=== PATIENT | male | born 1970 ===

== ENCOUNTER 2021-06-02 14:45 | Outpatient (REF) | payer OTHER, SELFPAY | END 2021-06-02 14:46 | disposition home or self-care (01) | LOC: HO.LAB 14:45 | PROVIDERS: Visit Provider Internal Medicine | DX: Z20.822 Contact with and (suspected) exposure to COVID-19 (principal) | CPT/HCPCS: C9803; U0003; U0005 ==

== ENCOUNTER 2023-06-26 14:00 | Emergency (ER) | payer MEDICAID, SELFPAY ==
--- NOTE | 2023-06-26 14:15 | ECG_ITS ---
Test Reason : DIZZY Blood Pressure : / mmHG Vent. Rate : 090 BPM Atrial Rate : 090 BPM P-R Int : 176 ms QRS Dur : 096 ms QT Int : 354 ms P-R-T Axes : 044 -11 023 degrees QTc Int : 433 ms Normal sinus rhythm Nonspecific ST and T wave abnormality Abnormal ECG When compared with ECG of 26-JUL-2008 01:19, No significant change was found Referred By: Caity Freire Electronically Signed By:SHIVAM CORTÉS
[2023-06-26 14:46] VITALS: BP 132/83; PULSE 91; RESP 16; TEMP 36.5; O2SAT 92; BMI 34.8
--- NOTE | 2023-06-26 14:46 | ED.GENADULT ---
HPI - General Adult General Chief complaint: General Medical Stated complaint: dizzy, ? bp high Time Seen by Provider: 06/26/23 22:59 Related Data Previous Rx's Medication Instructions Recorded lisinopril 40 mg tablet 40 mg PO DAILY #30 tabs 06/26/23 metoprolol succinate 25 mg 25 mg PO DAILY #30 tabs 06/26/23 tablet,extended release 24 hr Allergies Allergy/AdvReac Type Severity Reaction Status Date / Time No Known Allergies Allergy Mild NONE Unverified 06/09/20 17:20 [facility] Social History Social History Alcohol intake: never Smoked in Last 30 Days: No Use of substances other than those prescribed or required for medical reasons: No Advance Directives: No Physical Exam ED Vital Signs: BMI result Body Mass Index 34.8 Course Course Course Narrative: RME: 53yo M w/PMHx HTN c/o ZALDIVAR, dizziness x this morning w/blurry vision. Took BP this am at home and was elevated (175/92). States he hasn't taken his BP meds x3 days due to insurance issues, released from incarceration about 1 mos ago. Admits living w/somoeone who tested + for COVID EKG, Labs, COVID testing ordered Full HPI, ROS and PE to be performed by primary ED provider. Medical Decision Making Lab Data 06/26/23 15:09 06/26/23 15:09 Labs: Lab Results 06/26/23 Range/Units 15:09 WBC 6.2 (4.8-10.8) X10*3/uL RBC 4.71 (4.60-5.80) X10*6/uL Hgb 14.0 (14.0-18.0) g/dl Hct 40.9 L (42.0-52.0) % MCV 86.8 (80.0-98.0) fL MCH 29.7 (27.0-33.0) pg MCHC 34.2 (31.0-36.0) g/dl RDW 13.0 (11.0-16.0) % Plt Count 268 (160-400) X10*3/uL MPV 10.5 (9.4-12.4) fL Immature Gran % (Auto) 0.2 (0.0-0.4) % Neut % (Auto) 62.4 (45-73) % Lymph % (Auto) 23.5 (20-40) % [place] % (Auto) 10.8 (2-11) % Eos % (Auto) 1.8 (0-4) % Baso % (Auto) 1.3 (0-2) % Lymph # (Auto) 1.5 (1.2-4.9) X10*3/uL [place] # (Auto) 0.7 (0.1-1.2) X10*3/uL Eos # (Auto) 0.1 (0.0-0.4) X10*3/uL Baso # (Auto) 0.1 (0.0-0.2) X10*3/uL Abs Immat Gran (auto) 0.01 (0.00-0.03) X10*3/uL Absolute Neuts (auto) 3.9 (2.0-8.3) x10*3/uL Absolute Nucleated RBC 0.000 (0.0-0.012) X10*3/uL Nucleated RBC % (auto) 0.0 (0.0-0.2) /100WBC PT 11.1 (11.1-13.3) SEC INR 0.9 (0.9-1.1) Sodium 138 (135-145) mmol/L Potassium 3.4 (3.3-5.1) mmol/L Chloride 101 (96-108) mmol/L Carbon Dioxide 25 (22-29) mmol/L Anion Gap 15 (12-20) BUN 16 (9-16) mg/dL Creatinine 1.32 (0.5-1.4) mg/dL Estim Creat Clear Calc 85.2 Estimated GFR 57 Random Glucose 148 H (60-115) mg/dL Calcium 9.6 (8.4-10.2) mg/dL Magnesium 1.8 (1.6-2.6) mg/dL Total Bilirubin 0.4 (0.0-1.0) mg/dL Direct Bilirubin 0.1 (0.0-0.5) mg/dL AST 16 (5-37) U/L ALT 14 (0-40) U/L Alkaline Phosphatase 66 (39-117) U/L Troponin I High Sens 26.9 (<3.5-35.0) ng/L Total Protein 7.6 (6.5-8.0) g/dL Albumin 3.9 (3.5-5.0) g/dL COVID-19 ([facility]) Negative (Negative) COVID-19 Clin Com See Note Discharge Plan Discharge Clinical Impression: Hypertension Patient Disposition: Home, Self-Care Instructions: Chronic Hypertension (DC) Prescriptions: New metoprolol succinate 25 mg tablet extended release 24 hr 25 mg PO DAILY Qty: 30 0RF lisinopril 40 mg tablet 40 mg PO DAILY Qty: 30 0RF Referrals: [facility] [Primary Care Provider] - 06/28/23 Interventions: ED Discharge Assessment Last Done: 06/26/23 23:39 Discharge Date/Time: 06/26/23 23:40
[2023-06-26 15:13] LABS: MANUAL DIFF FLAG NO
[2023-06-26 15:16] LABS: Basophils Absolute Auto 0.1 X10*3/uL (0.0-0.2); Basophils Percent Auto 1.3 % (0-2); Eosinophils Absolute Auto 0.1 X10*3/uL (0.0-0.4); Eosinophils Percent Auto 1.8 % (0-4); Hematocrit 40.9 % (42.0-52.0); Imm Gran Abs Auto 0.01 X10*3/uL (0.00-0.03); Imm Gran Pct Auto 0.2 % (0.0-0.4); Lymphocytes Absolute Auto 1.5 X10*3/uL (1.2-4.9); Lymphocytes Percent Auto 23.5 % (20-40); Mean Corpuscular HGB Conc 34.2 g/dl (31.0-36.0); Mean Corpuscular Hemoglobin 29.7 pg (27.0-33.0); Mean Corpuscular Volume 86.8 fL (80.0-98.0); Mean Platelet Volume 10.5 fL (9.4-12.4); Monocytes Absolute Auto 0.7 X10*3/uL (0.1-1.2); Monocytes Percent Auto 10.8 % (2-11); Neutrophils Absolute Auto 3.9 x10*3/uL (2.0-8.3); Neutrophils Percent Auto 62.4 % (45-73); Platelet Count 268 X10*3/uL (160-400); Red Blood Count 4.71 X10*6/uL (4.60-5.80); White Blood Count 6.2 X10*3/uL (4.8-10.8)
[2023-06-26 15:25] LABS: INTERNATIONAL NORM RATIO 0.9 (0.9-1.1); Prothrombin Time 11.1 SEC (11.1-13.3)
[2023-06-26 15:33] LABS: Alanine Aminotransferase 14 U/L (0-40); Albumin Level 3.9 g/dL (3.5-5.0); Alkaline Phosphatase 66 U/L (39-117); Anion Gap 15 (12-20); Aspartate Amino Transferase 16 U/L (5-37); Bilirubin Direct 0.1 mg/dL (0.0-0.5); Bilirubin Total 0.4 mg/dL (0.0-1.0); Blood Urea Nitrogen 16 mg/dL (9-16); Calcium 9.6 mg/dL (8.4-10.2); Carbon Dioxide 25 mmol/L (22-29); Chloride 101 mmol/L (96-108); Creatinine Clr Calc Pharmacy 85.2; Estimated Glomerular Filt Rate 57; Glucose Random 148 mg/dL (60-115); Magnesium 1.8 mg/dL (1.6-2.6); Potassium 3.4 mmol/L (3.3-5.1); Sodium 138 mmol/L (135-145); Total Protein 7.6 g/dL (6.5-8.0)
[2023-06-26 15:38] LABS: COVID-19 Test Negative (Negative); IDNOW Serial# BCCEAD1C
[2023-06-26 15:39] LABS: Troponin-I High Sensitivity 26.9 ng/L (<3.5-35.0)
[2023-06-26 22:32] VITALS: BP 142/91; PULSE 71; O2SAT 98
--- NOTE | 2023-06-26 23:14 | ED.GENADULT ---
HPI - General Adult General Chief complaint: General Medical Stated complaint: dizzy, ? bp high Time Seen by Provider: 06/26/23 22:59 History of Present Illness HPI narrative: Patient is a 53-year-old male was recently in [facility]. Got out of detention. Has not been taking his blood pressure medicine for 3 days. Has a history of glaucoma. Complaining of mild headache to the head on the right side. No neurological deficits. [place] a little lightheaded. Elected to take his blood pressure was elevated. Once his blood pressure medicine back. Patient is also out of his eye drop. He is from home. There is no chest pain is no diaphoresis. There was no loss of consciousness. There is no focal weakness. Related Data Previous Rx's Medication Instructions Recorded lisinopril 40 mg tablet 40 mg PO DAILY #30 tabs 06/26/23 metoprolol succinate 25 mg 25 mg PO DAILY #30 tabs 06/26/23 tablet,extended release 24 hr Allergies Allergy/AdvReac Type Severity Reaction Status Date / Time No Known Allergies Allergy Mild NONE Unverified 06/09/20 17:20 Review of Systems Review of Systems: Positive history of having high blood pressure Yes all other systems are reviewed and are negative [facility] Past Medical History Attestation statement: The following information was validated with the patient. Social History Social History Alcohol intake: never Physical Exam ED Vital Signs: Vital Signs - 24 hr 06/26/23 14:46 06/26/23 22:32 Temperature 97.7 F Pulse Rate 91 71 Respiratory Rate 16 Blood Pressure 132/83 142/91 H Pulse Oximetry 92 98 Oxygen Delivery Method Room Air Room Air BMI result Body Mass Index 34.8 Appearance: Alert. Oriented X3. No acute distress. Eyes: Pupils equal, round and reactive to light. ENT: Pharynx normal. Neck: Normal inspection. Neck supple. No lymph nodes noted. No crepitus CVS: Normal heart rate and rhythm. Pulses normal. Normal S1 and S2 Respiratory: No respiratory distress. Breath sounds normal. No Wheezing. No rales Abdomen: Soft and nontender. No rigidity. No distention. good BS x4 Skin: Skin warm and dry. Normal skin color. Normal skin turgor. Extremities: No lower extremity edema. Neurovascular intact to all extremities. No Lacerations. No Rash Neuro: Oriented X 3. No motor deficit. No sensory deficit. Moving all extermities. No slurred speech NIH Stroke Scale Internal: Initial- Upon Arrival Time: 23:20 Level of Consciousness: Alert Level of Consciousness Questions: Answers both questions correctly Level of Consciousness Commands: Performs both tasks correctly Best Gaze: Normal Visual: No visual loss Facial Palsy: Normal Motor Arm (Right): No drift Motor Arm (Left): No drift Motor Leg (Right): No drift Motor Leg (Left): No drift Limb Ataxia: Absent Sensory: Normal Best Language: No aphasia Dysarthia: Normal Extinction and Inattention: No abnormality Score: 0 Medical Decision Making Medical Decision Making MDM Narrative: Patient's intra-ocular pressure is 14 on the right 15 on the left. There is no evidence for glaucoma. Visual acuity grossly intact. Patient neurologically intact. NIH stroke scale was 0. Blood pressure is 142/91. Patient had exposure to COVID however his COVID test was negative. His hemoglobin is 14 there is no evidence for anemia. Patient's creatinine is 1.32 with a normal GFR. No evidence of kidney issues. My interpretation of patient's EKG showed a sinus rhythm heart rate is 90 NV QRS QTC within normal limits is no acute ST segment elevation. There is diffuse T-wave flattening noted. This EKG is unchanged from previous. Patient's blood pressure here in the emergency department is not extreme. It is in the 150/90 range. We will go ahead and attempt to identify patient's blood pressure medication and send him a new prescription as he is waiting for his primary care physician. Patient's headache has completely subsided. He is neurologically intact. In stable condition with discharge home. Differential Diagnosis Differential Diagnoses: The differential diagnosis associated with the presentation includes Glaucoma, tension headache, stroke, intracranial bleed, mass, hypertension noncompliance Lab Data [facility] Lab Attestation statement: I reviewed the patient's lab results. 06/26/23 15:09 06/26/23 15:09 Labs: Lab Results 06/26/23 Range/Units 15:09 WBC 6.2 (4.8-10.8) X10*3/uL RBC 4.71 (4.60-5.80) X10*6/uL Hgb 14.0 (14.0-18.0) g/dl Hct 40.9 L (42.0-52.0) % MCV 86.8 (80.0-98.0) fL MCH 29.7 (27.0-33.0) pg MCHC 34.2 (31.0-36.0) g/dl RDW 13.0 (11.0-16.0) % Plt Count 268 (160-400) X10*3/uL MPV 10.5 (9.4-12.4) fL Immature Gran % (Auto) 0.2 (0.0-0.4) % Neut % (Auto) 62.4 (45-73) % Lymph % (Auto) 23.5 (20-40) % [place] % (Auto) 10.8 (2-11) % Eos % (Auto) 1.8 (0-4) % Baso % (Auto) 1.3 (0-2) % Lymph # (Auto) 1.5 (1.2-4.9) X10*3/uL [place] # (Auto) 0.7 (0.1-1.2) X10*3/uL Eos # (Auto) 0.1 (0.0-0.4) X10*3/uL Baso # (Auto) 0.1 (0.0-0.2) X10*3/uL Abs Immat Gran (auto) 0.01 (0.00-0.03) X10*3/uL Absolute Neuts (auto) 3.9 (2.0-8.3) x10*3/uL Absolute Nucleated RBC 0.000 (0.0-0.012) X10*3/uL Nucleated RBC % (auto) 0.0 (0.0-0.2) /100WBC PT 11.1 (11.1-13.3) SEC INR 0.9 (0.9-1.1) Sodium 138 (135-145) mmol/L Potassium 3.4 (3.3-5.1) mmol/L Chloride 101 (96-108) mmol/L Carbon Dioxide 25 (22-29) mmol/L Anion Gap 15 (12-20) BUN 16 (9-16) mg/dL Creatinine 1.32 (0.5-1.4) mg/dL Estim Creat Clear Calc 85.2 Estimated GFR 57 Random Glucose 148 H (60-115) mg/dL Calcium 9.6 (8.4-10.2) mg/dL Magnesium 1.8 (1.6-2.6) mg/dL Total Bilirubin 0.4 (0.0-1.0) mg/dL Direct Bilirubin 0.1 (0.0-0.5) mg/dL AST 16 (5-37) U/L ALT 14 (0-40) U/L Alkaline Phosphatase 66 (39-117) U/L Troponin I High Sens 26.9 (<3.5-35.0) ng/L Total Protein 7.6 (6.5-8.0) g/dL Albumin 3.9 (3.5-5.0) g/dL COVID-19 ([facility]) Negative (Negative) COVID-19 Clin Com See Note Independent Interpretation I performed an independent interpretation of an: EKG (Sinus sinus heart rate is 90 NV QRS QTC within normal limits is diffuse T-wave flattening noted.) External Record Review No old records here at [facility] Chronic Conditions Patient?s care impacted by: Hypertension Hypertension, glaucoma Social Determinants Patient?s care significantly limited by Social Determinants of Health including: Unemployment and Other Social Determinant of Health Patient was in detention Discharge Plan Discharge Patient Disposition: Home, Self-Care Instructions: Chronic Hypertension (DC) Prescriptions: New metoprolol succinate 25 mg tablet extended release 24 hr 25 mg PO DAILY Qty: 30 0RF lisinopril 40 mg tablet 40 mg PO DAILY Qty: 30 0RF Referrals: [facility] [Primary Care Provider] - 06/28/23
[2023-06-26 23:38] VITALS: BP 137/90; PULSE 74; RESP 18; O2SAT 96
== END 2023-06-26 23:40 | disposition home or self-care (01) ==
PROVIDERS: Physician Assistant; Emergency Provider Emergency Medicine Emergency Medical Services
DX: R42 Dizziness and giddiness (principal); I10 Essential (primary) hypertension; R94.31 Abnormal electrocardiogram [ECG] [EKG]; Z20.822 Contact with and (suspected) exposure to COVID-19; Z20.828 Contact with and (suspected) exposure to other viral communicable diseases; Z79.899 Other long term (current) drug therapy
CPT/HCPCS: 36415; 80048; 80076; 83735; 84484; 85025; 85610; 87635; 93005; 99283; 99284

== ENCOUNTER 2023-09-18 22:33 | Emergency (ER) | payer MEDICAID, SELFPAY ==
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
[2023-09-18 23:30] VITALS: BP 114/71; PULSE 90; RESP 20; TEMP 37.7; O2SAT 97; BMI 29.8
[2023-09-19 00:31] VITALS: BP 117/63; PULSE 94; RESP 14; TEMP 37.7; O2SAT 93
[2023-09-19 00:58] LABS: Influenza A PCR POSITIVE (Negative); Influenza B PCR NEGATIVE (Negative); Resp Syncy Virus RNA Qual PCR NEGATIVE (Negative); SARS COV2 PCR INHOUSE NEGATIVE (Negative)
--- NOTE | 2023-09-19 02:24 | ED_ITS ---
HPI - URI/Sore Throat General Chief Complaint: Upper Respiratory Symptoms Stated Complaint: fever x2 days Time Seen by Provider: 09/19/23 01:56 History of Present Illness HPI Narrative: 53-year-old male presents with body aches, sore throat, cough, headache and subjective fevers with chills since the . Related Data Previous Rx's Medication Instructions Recorded lisinopril 40 mg tablet 40 mg PO DAILY #30 tabs 06/26/23 metoprolol succinate 25 mg 25 mg PO DAILY #30 tabs 06/26/23 tablet,extended release 24 hr Allergies Allergy/AdvReac Type Severity Reaction Status Date / Time No Known Allergies Allergy Mild NONE Unverified 06/09/20 17:20 Review of Systems Review of Systems: Pertinent positives and negatives as stated in HPI [facility] Past Medical History Source: nursing notes reviewed Social History Social History Alcohol intake: never Advance Directives: No Advance Directives Information Provided: No Physical Exam Vital Signs: Vital Signs: Last Vital Signs Temp 99.9 F 09/19/23 00:31 Pulse 94 09/19/23 00:31 Resp 14 09/19/23 00:31 BP 117/63 09/19/23 00:31 Pulse Ox 93 09/19/23 00:31 O2 Del Method Room Air 09/19/23 00:31 BMI result Body Mass Index 29.8 VITAL SIGNS: Reviewed. GENERAL: Well developed, well nourished, in no acute distress. HEAD: Normocephalic/atraumatic EYES: PERRLA, EOMI EARS: Ext canals without abnormality, TMs non-bulging and non-erythematous NOSE: Nares patent bilateral OROPHARYNX: no oral lesions noted, posterior pharynx clear and non-erythematous without noted tonsillar enlargement/erythema/exudates NECK: Supple, no adenopathy LUNGS: Normal breath sounds. No adventitious sounds or accessory muscle use. SpO2<93> CARDIOVASCULAR: Regular rate and rhythm without noted murmurs ABDOMEN: Soft, non-tender, non-distended with bowel sounds. MUSCULOSKELETAL: No tenderness, deformities, or effusions noted on gross inspection. EXTREMITIES: No cyanosis, clubbing or edema. SKIN: Inspection of the skin reveals no rashes NEUROLOGIC: Alert and oriented x 4. Strength and sensation to light touch were grossly intact x 4. Medical Decision Making Medical Decision Making [facility] Narrative: 53-year-old male with history and clinical presentation most consistent with viral illness, on review of viral testing patient is noted be influenza A positive and chest x-ray not significant for all infiltrate or venous congestion otherwise my interpretation is in agreement with radiologic impression. Patient is outside the window for treatment with Tamiflu and is otherwise discharged home with instructions on symptomatic treatment. Differential Diagnosis Differential Diagnoses: The differential diagnosis associated with the presentation includes Please see the discussion above Admission/Observation Consideration of admission/observation: Escalation of care including admission/observation considered Please see the discussion above Lab Data [facility] Lab Attestation statement: I reviewed the patient's lab results. Please see the discussion above Labs: Lab Results 09/19/23 Range/Units 00:14 Influenza Type A (PCR) POSITIVE A (Negative) Influenza Type B (PCR) NEGATIVE (Negative) RSV RNA Qual (PCR) NEGATIVE (Negative) SARS-CoV-2 RNA (RT-PCR) NEGATIVE (Negative) Radiology Impression Discussion of test interpretation with radiology: I have reviewed the radiologist's reading. Radiologist Impression: Please see the discussion above Chronic Conditions Patient?s care impacted by: Hypertension Discharge Plan Discharge Clinical Impression: Viral syndrome, Influenza A Patient Disposition: Home, Self-Care Instructions: Influenza (ED), Viral Syndrome (ED) Additional Instructions: 1. Use Tylenol/ibuprofeno seg?n sea necesario para maxine corporales, maxine de keaton, temperaturas superiores a 100,4, franklyn yessenia agua y descanse lo suficiente. 2. Mario un seguimiento con [place] m?dico de atenci?n primaria. Regrese a la ricardo de emergencias si los s?ntomas empeoran. 1. Use Tylenol/ibuprofen as needed for body aches, headaches, temperatures greater than 100.4, drink plenty of water, get plenty of rest. 2. Follow-up with your primary care doctor. Return to the ER for any worsening symptoms. Prescriptions: No Action metoprolol succinate 25 mg tablet extended release 24 hr 25 mg PO DAILY Qty: 30 0RF lisinopril 40 mg tablet 40 mg PO DAILY Qty: 30 0RF Interventions: ED Discharge Assessment Last Done: 09/19/23 02:42 Discharge Date/Time: 09/19/23 02:43 Print Language: [place]an
== END 2023-09-19 02:43 | disposition home or self-care (01) ==
PROVIDERS: Emergency Provider Student in an Organized Health Care Education/Training Program
DX: J10.1 Influenza due to other identified influenza virus with other respiratory manifestations (principal); B34.9 Viral infection, unspecified; R50.9 Fever, unspecified; M79.10 Myalgia, unspecified site; Z20.822 Contact with and (suspected) exposure to COVID-19; Z20.828 Contact with and (suspected) exposure to other viral communicable diseases
CPT/HCPCS: 0241U; 71046; 99283

== ENCOUNTER 2023-10-02 16:14 | Outpatient (REF) | payer MEDICAID, SELFPAY ==
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
== END 2023-10-02 16:15 | disposition home or self-care (01) ==
LOC: HO.HHCX 16:14
PROVIDERS: Visit Provider Internal Medicine Geriatric Medicine
DX: R04.2 Hemoptysis (principal)
CPT/HCPCS: 71046

== ENCOUNTER 2023-10-03 16:19 | Outpatient (REF) | payer MEDICAID, SELFPAY ==
[2023-10-03 16:30] LABS: MANUAL DIFF FLAG NO
[2023-10-03 16:50] LABS: Basophils Absolute Auto 0.1 X10*3/uL (0.0-0.2); Basophils Percent Auto 0.9 % (0-2); Eosinophils Absolute Auto 0.1 X10*3/uL (0.0-0.4); Eosinophils Percent Auto 1.2 % (0-4); Hematocrit 42.2 % (42.0-52.0); Hemoglobin 14.2 g/dl (14.0-18.0); Imm Gran Abs Auto 0.02 X10*3/uL (0.00-0.03); Imm Gran Pct Auto 0.3 % (0.0-0.4); Lymphocytes Absolute Auto 1.6 X10*3/uL (1.2-4.9); Lymphocytes Percent Auto 21.6 % (20-40); Mean Corpuscular HGB Conc 33.6 g/dl (31.0-36.0); Mean Corpuscular Hemoglobin 29.1 pg (27.0-33.0); Mean Corpuscular Volume 86.5 fL (80.0-98.0); Mean Platelet Volume 11.3 fL (9.4-12.4); Monocytes Absolute Auto 0.7 X10*3/uL (0.1-1.2); Monocytes Percent Auto 9.6 % (2-11); Neutrophils Percent Auto 66.4 % (45-73); Platelet Count 307 X10*3/uL (160-400); Red Blood Count 4.88 X10*6/uL (4.60-5.80); Red Cell Distribution Width 13.3 % (11.0-16.0); White Blood Count 7.6 X10*3/uL (4.8-10.8)
[2023-10-03 17:19] LABS: Anion Gap 9 (12-20); Blood Urea Nitrogen 17 mg/dL (9-16); Calcium 9.4 mg/dL (8.4-10.2); Carbon Dioxide 29 mmol/L (22-29); Chloride 105 mmol/L (96-108); Estimated Glomerular Filt Rate > 60; Glucose Random 160 mg/dL (60-115); Potassium 3.4 mmol/L (3.3-5.1); Sodium 140 mmol/L (135-145)
[2023-10-05 21:24] LABS: TS Negative Control Passed; TS Panel A 1; TS Panel B 0; TS Positive Control Passed; TSpotTB Negative (Negative)
== END 2023-10-03 16:20 | disposition home or self-care (01) ==
LOC: HO.LAB 16:19
PROVIDERS: Visit Provider Internal Medicine Geriatric Medicine
DX: Z11.1 Encounter for screening for respiratory tuberculosis (principal); R04.2 Hemoptysis
CPT/HCPCS: 36415; 80048; 85025; 86481

== ENCOUNTER 2024-04-21 10:06 | Outpatient (REF) | payer MEDICAID, SELFPAY ==
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
== END 2024-04-21 10:07 | disposition home or self-care (01) ==
LOC: HO.HHCX 10:06
PROVIDERS: Visit Provider Emergency Medicine
DX: M25.561 Pain in right knee (principal); G89.29 Other chronic pain
CPT/HCPCS: 73564

== ENCOUNTER 2024-05-26 12:57 | Outpatient (AMB) | payer MEDICAID, SELFPAY ==
--- NOTE | 2024-05-26 13:03 | A.OFFVIS_ITS ---
Vital Signs 05/26/24 13:05 Height 6 ft Weight 247 lb BMI 33.5 Intake Visit Reasons: REGISTRATION REP-RT knee pain Intake Note: Jai is a 53 year old Estonian speaking male who presents today as a new patient with complaints of right knee pain. Patient reports for about 4 or longer he has been intermittent pains in the right knee. His complaints are pulsating pain on the posterior aspect of the knee and also a mass on the back of his knee especially with prolonged standing and pressure like pain on the anterior aspect. Ibuprofen and brace gives mild relief. 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 The patient reports that this pain has progressively worsened over that time. Patient reports that his pain is worst in the lateral aspect of the right knee. Patient reports that he does also experience pain in both the anterior and posterior aspects of the right knee, and feels there is a palpable mass in the posterior aspect of the right knee. The patient reports that he is very apprehensive about any injections or surgery, and states he would like to start with as conservative of treatment as possible. No other acute complaints or concerns at this time. 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 Physical Exam Vital Signs: BMI result Body Mass Index 33.5 Extrem Other: On inspection, there is no visible deformity of the left knee Mild edema No erythema, ecchymosis noted No lacerations, abrasions, open areas No evidence of infection Patient reports mild tenderness to palpation of both medial and lateral joint lines Patient also reports mild tenderness to palpation of the posterior knee No palpable mass appreciated No tenderness to palpation of the quad tendon, patellar tendon, tibial tubercle Patient is able to extend the left knee to 0 degrees and flex to approximately 120 degrees without difficulty No ligamentous laxity noted Distal sensation intact Capillary refill brisk Negative Todd's Results Reviewed Results Reviewed: X-rays obtained in the office today and independently reviewed by me, Vadim Jeanie PA-C, demonstrate severe degenerative changes of the right knee, worst in the lateral compartment. No fracture or acute bony abnormality noted. Assessment & Plan Assessment & Plan (1) Osteoarthritis of right knee: Code(s): M17.11 - Unilateral primary osteoarthritis, right knee Category: Medical Plan 1. Osteoarthritis of right knee, severe Patient is educated about this condition and the typical recovery course Patient is educated on the treatment options available, namely conservative measures such as physical therapy, injections, or surgery The patient once again expresses his apprehension at injections or surgery, and states he would like to start with conservative measures for symptomatic management Patient was referred to physical therapy for range of motion, strengthening, stabilization of right knee Patient is also educated on conservative pain management measures, such as rest, ice, compression, elevation, and [id number] pain medication when needed, such as Tylenol and ibuprofen Patient is amenable to this plan Patient is informed that he should follow-up in our office if these conservative pain management measures are not effective, to discuss further treatment options Patient will follow-up as needed with any acute concerns Coding Level of Care Code New Pt Level 3 (99230) Diagnoses Osteoarthritis of right knee M17.11
[2024-05-26 13:05] VITALS: BMI 33.5
== END 2024-05-26 13:39 | disposition home or self-care (01) ==
DX: M17.11 Unilateral primary osteoarthritis, right knee (principal)
CPT/HCPCS: 99203

== ENCOUNTER → 2024-05-26 12:57 | Outpatient (BNVA) | payer MEDICAID, SELFPAY | DX: M17.11 Unilateral primary osteoarthritis, right knee (principal) | CPT/HCPCS: 99212 ==

== ENCOUNTER 2024-09-15 10:57 | Outpatient (REF) | payer MEDICAID, SELFPAY ==
[2024-09-15 13:14] LABS: MANUAL DIFF FLAG NO
[2024-09-15 13:22] LABS: Basophils Absolute Auto 0.1 X10*3/uL (0.0-0.2); Basophils Percent Auto 1.3 % (0-2); Eosinophils Absolute Auto 0.1 X10*3/uL (0.0-0.4); Eosinophils Percent Auto 1.8 % (0-4); Hematocrit 43.5 % (42.0-52.0); Imm Gran Abs Auto 0.01 X10*3/uL (0.00-0.03); Imm Gran Pct Auto 0.2 % (0.0-0.4); Lymphocytes Absolute Auto 1.7 X10*3/uL (1.2-4.9); Lymphocytes Percent Auto 27.2 % (20-40); Mean Corpuscular HGB Conc 34.5 g/dl (31.0-36.0); Mean Corpuscular Hemoglobin 29.8 pg (27.0-33.0); Mean Corpuscular Volume 86.3 fL (80.0-98.0); Monocytes Absolute Auto 0.7 X10*3/uL (0.1-1.2); Monocytes Percent Auto 10.8 % (2-11); Neutrophils Absolute Auto 3.6 x10*3/uL (2.0-8.3); Neutrophils Percent Auto 58.7 % (45-73); Platelet Count 294 X10*3/uL (160-400); Red Blood Count 5.04 X10*6/uL (4.60-5.80); Red Cell Distribution Width 13.4 % (11.0-16.0); White Blood Count 6.1 X10*3/uL (4.8-10.8)
[2024-09-15 13:40] LABS: Alanine Aminotransferase 26 U/L (0-40); Albumin Level 4.1 g/dL (3.5-5.0); Alkaline Phosphatase 59 U/L (39-117); Anion Gap 10 (12-20); Aspartate Amino Transferase 27 U/L (5-37); Bilirubin Total 0.6 mg/dL (0.0-1.0); Blood Urea Nitrogen 20 mg/dL (9-16); Calcium 9.3 mg/dL (8.4-10.2); Carbon Dioxide 31 mmol/L (22-29); Chloride 102 mmol/L (96-108); Cholesterol 180 mg/dL (<200); Estimated Glomerular Filt Rate > 60; Glucose Random 119 mg/dL (60-115); HDL Cholesterol 35 mg/dL (>40); LDL Cholesterol Calculated 119 mg/dL (<100); Potassium 3.4 mmol/L (3.3-5.1); Sodium 140 mmol/L (135-145); Triglycerides 134 mg/dL (<150)
[2024-09-15 13:42] LABS: Estimated Average Glucose 140 mg/dL; Hemoglobin A1C 182.8592 umol/L; Hemoglobin A1c % 6.5 % (<6.0); Total Hemoglobin (HGBA1C) 3839.4578 umol/L
[2024-09-15 14:21] LABS: PSA,Total (Free>4and<10) 0.47 ng/mL (0.00-4.00)
[2024-09-15 14:26] LABS: TSH reflex Free T4 1.81 uIU/mL (0.32-4.0); Vitamin D 25-OH Total 37.3 ng/mL (>30)
[2024-09-17 15:15] LABS: HIV AB/AG Nonreactive (Nonreactive); HIV Num 1 0.05 S/CO (0.00-0.99); ~HepC Num1 0.17 S/CO (0.00-0.79); ~Hepatitis C Antibody Nonreactive (Nonreactive)
== END 2024-09-15 10:58 | disposition home or self-care (01) ==
LOC: HO.HHCL 10:57
PROVIDERS: Visit Provider Internal Medicine
DX: R04.2 Hemoptysis (principal); Z85.528 Personal history of other malignant neoplasm of kidney; I10 Essential (primary) hypertension
CPT/HCPCS: 36415; 80053; 80061; 82306; 83036; 84153; 84443; 85025; 86803; 87389

== ENCOUNTER 2024-09-29 08:19 | Outpatient (AMB) | payer MEDICAID, SELFPAY ==
[2024-09-29 08:25] VITALS: BP 130/88; PULSE 66; O2SAT 95; BMI 33.0
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
== END 2024-09-29 08:56 | disposition home or self-care (01) ==
PROVIDERS: Visit Provider Hospitalist
DX: R04.2 Hemoptysis (principal); R93.89 Abnormal findings on diagnostic imaging of other specified body structures; R07.89 Other chest pain; R06.09 Other forms of dyspnea
CPT/HCPCS: 99204

== ENCOUNTER → 2024-09-29 08:19 | Outpatient (BNVA) | payer MEDICAID, SELFPAY | PROVIDERS: Visit Provider Hospitalist | DX: R04.2 Hemoptysis (principal); R93.89 Abnormal findings on diagnostic imaging of other specified body structures; R07.89 Other chest pain; R06.09 Other forms of dyspnea | CPT/HCPCS: 99202 ==

== ENCOUNTER 2024-11-13 07:14 | Outpatient (REF) | payer MEDICAID, SELFPAY ==
--- NOTE | ~2024-11-13 | CT_ITS ---
CLINICAL HISTORY: R04.2 - Hemoptysis CT chest without contrast Comparison: None Findings: The heart is normal size. The visualized thyroid and mediastinum are unremarkable. There is abnormal appearance of posterior right ribs with overlying pleural thickening possibly related to previous trauma or surgery. There is a focal pleural-based right lower lobe 2.7 x 1.5 cm lesion questionable vascular structures extending to and from the area. Differential considerations would include vascular malformation, rounded atelectasis, or neoplasm. Comparison with the prior studies, if available, would be of value. If not, appropriate further evaluation possibly beginning with PET-CT, recommended. The upper abdomen is unremarkable. No acute fractures. IMPRESSION: 1. Possible posttraumatic or iatrogenic findings in right hemithorax. Comparison with any prior cross-sectional imaging, if available, to assess for stability, would be of value. 2. Overlying focal consolidation, differential considerations noted. Comparison with prior studies or clinically appropriate follow-up recommended. This document has been electronically signed by: John Yarbrough MD on 11/13/2024 08:54:16
--- OUTSIDE RECORDS SUMMARY | 2024-11-13 07:16 | XMS_ITS | Encounter Summary ---
Author Organization [employer] Address [address] [facility] 7 [place] [address] Care Team Providers Care Unit Leader Name Role Phone Kathy Hair MD Primary Care Provide r Reason for Visit * Reason Onset Date Comments New Patient 06/28/2023 Encounter Details Date Type Department Care Team (Late st Contact Info) Description 06/28/2023 Telephone [facility] [address] [place] [address] [phone] Beny Renteria MD [address], [place] [phone] New Patient Social History Tobacco Use Types Packs/Day Years Used Date Smoking Tobacco: Never Assessed Sex and Gender Information Value Date Recorded Sex Assigned at Male 07/16/2023 3:15 PM EDT Legal Sex Male 1:08 PM EDT Gender Identity Male 07/16/2023 3:15 PM EDT Sexual Orientation Straight 07/16/2023 3: 15 PM EDT documented as of this encounter Miscellaneous Notes * Telephone Encounter - Meño Kam - 06/28/2023 8:38 AM EDT 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 EFFECTIVE SINCE 06/28/2023 documented in this encounter Plan of Treatment Upcoming Encounters Date Type Department Care Team (Late st Contact Info) Description 12/15/2024 10:00 AM EDT Office Visit [facility] [address] [place] [phone] Kathy Hair MD [address], [place] [phone] documented as of this encounter Visit Diagnoses Not on filedocumented in this encounter Care Teams Unit Leader Relationship Specialty Start Date End Date Kathy Hair MD [address], [place] [phone] PCP - General Internal Medicine 09/15/24 documented as of this encounter
--- OUTSIDE RECORDS SUMMARY | 2024-11-13 07:16 | XMS_ITS | Encounter Summary ---
Author Organization [employer] Address [address] [place] [address] Care Team Providers Care Warp Clamper Name Role Phone Kathy Hair MD Primary Care Provide r Reason for Visit * Reason Comments Med Refill Encounter Details Date Type Department Care Team (Late Contact Info) Description 06/22/2024 Refill [facility] [address] [place] [phone] Name, MD Wenceslao [address] [place] [phone] Social History Tobacco Use Types Packs/Day Years Used Date Smoking Tobacco: Never Passive Smoke Exposure: Never Smokeless Tobacco: Never Depression Answer Date Recorded Patient Health Questionnaire-2 Score 0 07/16/2023 Sex and Gender Information Value Date Recorded Sex Assigned at Male 07/16/2023 3:15 PM EDT Legal Sex Male 1:08 PM EDT Gender Identity Male 07/16/2023 3:15 PM EDT Sexual Orientation Straight 07/16/2023 3: 15 PM EDT documented as of this encounter Plan of Treatment Upcoming Encounters Date Type Department Care Team (Late st Contact Info) Description 12/15/2024 10:00 AM EDT Office Visit [facility] [address] [place] [phone] Kathy Hair MD [address] [place] [phone] documented as of this encounter Visit Diagnoses Not on filedocumented in this encounter Care Teams Warp Clamper Relationship Specialty Start Date End Date Kathy Hair MD [address] [place] [phone] PCP - General Internal Medicine 09/15/24 documented as of this encounter
--- OUTSIDE RECORDS SUMMARY | 2024-11-13 07:16 | XMS_ITS | Encounter Summary ---
Author Organization [employer] Address [address] [facility] 7 [place] [address] Care Team Providers Care Bleaching Supervisor Name Role Phone Kathy Hair MD Primary Care Provide r Reason for Visit * Reason Comments Med Refill Encounter Details Date Type Department Care Team (Late Contact Info) Description 04/21/2024 Refill [facility] [address] [place] [phone] Name, MD Wenceslao [address] [place] [phone] Essential hypertension Social History Tobacco Use Types Packs/Day Years [...] Description 12/15/2024 10:00 AM EDT Office Visit [facility] [address] [place] [phone] Kathy Hair MD [address] [place] [phone] documented as of this encounter Visit Diagnoses Diagnosis Essential hypertension Unspecified essential hypertension documented in this encounter Care Teams Bleaching Supervisor Relationship Specialty Start Date End Date Kathy Hair MD [address] [place] [phone] PCP - General Internal Medicine 09/15/24 documented as of this encounter
--- OUTSIDE RECORDS SUMMARY | 2024-11-13 07:16 | XMS_ITS | Encounter Summary ---
Author Organization [employer] Address [address] 7[address] [place] [address] Care Team Providers Care Ground Products Director Name Role Phone Kathy Hair MD Primary Care Provide r Reason for Visit * Reason Comments Med Refill Encounter Details Date Type Department Care Team (Late Contact Info) Description 07/15/2024 Refill [facility] [address] [place] [phone] Kenan Mays MD [address] [place] [phone] Essential hypertension Social History Tobacco Use Types [...] Description 12/15/2024 10:00 AM EDT Office Visit [facility] [address] [place] [address] [phone] Kathy Hair MD [address] [place] [phone] documented as of this encounter Visit Diagnoses Diagnosis Essential hypertension Unspecified essential hypertension documented in this encounter Care Teams Ground Products Director Relationship Specialty Start Date End Date Kathy Hair MD [address] [place] [phone] PCP - General Internal Medicine 09/15/24 documented as of this encounter
--- OUTSIDE RECORDS SUMMARY | 2024-11-13 07:16 | XMS_ITS | Encounter Summary ---
Author Organization [employer] Address [address] [place] [address] Care Team Providers Care Biochemical Development Engineer Name Role Phone Kathy Hair MD Primary Care Provide r Reason for Visit * Reason Comments Med Refill Encounter Details Date Type Department Care Team (Late Contact Info) Description 07/15/2024 Refill [facility] [address] [place] [phone] Kenan Mays MD [address] [place] [phone] Essential hypertension Social History Tobacco Use Types [...] 10:00 AM EDT Office Visit [facility] [address] [place] [phone] Kathy Hair MD [address] [place] [phone] documented as of this encounter Visit Diagnoses Diagnosis Essential hypertension Unspecified essential hypertension documented in this encounter Care Teams Biochemical Development Engineer Relationship Specialty Start Date End Date Kathy Hair MD [address] [place] [phone] PCP - General Internal Medicine 09/15/24 documented as of this encounter
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
--- OUTSIDE RECORDS SUMMARY | 2024-11-13 07:16 | XMS_ITS | Clinical Summary ---
Author Organization [facility] Address [address] [place] [address] Care Team Providers Care Gis Mapping Technician Name Role Phone Disha Callejas MD Primary Care Provider [phone] Allergies No known active allergies Medications latanoprost [...] 07/14/2021 5:33 PM EDT Plan of Treatment Health Maintenance Due Date Last Done Comments Cologuard 1970 Colon Cancer Screening 1970 Colonoscopy 1970 FOBT / Fit Test 1970 HIV Screening 1970 Hepatitis C Screening 1970 Sigmoidoscopy 1970 Hepatitis B Vaccines (1 of 3 - 19+ 3-dose series) 1989 Pneumococcal Vaccine: 50+ Ye ars (2 of 2 - PCV) 2020 04/19/2011 Zoster Vaccines (2 of 2) 08/16/2020 06/21/2020 Basic Metabolic Panel 07/19/2022 07/19/2021 , 07/18/2021, 07/17/2021, Additional history exists COVID-19 Vaccine (3 - 2023-2 5 season) 2024 02/01/2021, 01/11/2021 Influenza Vaccine (#1) 2024 , 07/23/2018, 07/22/2017, Additional history exists Alcohol/Substance Use Screening 09/23/2024 Depression Screening and Follow-Up 09/23/2024 Social Drivers of Health Yaneth ual Screening 09/23/2024 DTaP,Tdap,and Td Vaccines (2 - Td or Tdap) 06/16/2030 06/16/2020, 09/30/2010, 09/30/2010 RSV Vaccine (60+ years old a nd patients) (1 - 1-dose 75+ series) 2045 Procedures * Due to [place] state law, this organization might not be sharing negative HIV tests. Procedure Name Priority Date/Time Associated Diagnosis Comments COMPREHENSIVE METABOLIC PANEL Routine 07/19/2021 2:56 AM EDT from Last 3 Months or Most Recently Relevant to Health Maintenance Results * Due to [place] state law, this organization might not be sharing negative HIV tests. * (ABNORMAL) Comprehensive Metabolic Panel (07/19/2021 2:56 AM EDT) NA 136 135 - 145 mmol/L 07/19/2021 3:39 AM EDT [facility] K 3.9 3.5 - 5.3 mmol/L 07/19/2021 3:39 AM EDT [facility] Cl 103 97 - 110 mmol/L 07/19/2021 3:39 AM EDT [facility] CO2 25 24 - 32 mmol/L 07/19/2021 3:39 AM EDT [facility] Anion Gap 8 5 - 15 07/19/2021 3:39 AM EDT [facility] Glucose 138(H) 70 - 99 mg/dL 07/19/2021 3:39 AM EDT [facility] Creatinine 0.99 0.60 - 1.30 mg/dL 07/19/2021 3:39 AM EDT [facility] eGFR Non- 88(L) >=90 mL/min/BS A 07/19/2021 3:39 AM EDT [facility] eGFR >90 >=90 mL/min/BS A 07/19/2021 3:39 AM EDT [facility] Comment: Units = mL/min/1.73 [...] 8.7 - 10.7 mg/dL 07/19/2021 3:39 AM EDT [facility] Total Protein 7.3 6.0 - 8.0 g/dL 07/19/2021 3:39 AM EDT [facility] Albumin 3.5 3.5 - 4.8 g/dL 07/19/2021 3:39 AM EDT [facility] Bilirubin, Total 0.2(L) 0.3 - 1.2 mg/dL 07/19/2021 3:39 AM EDT [facility] Alkaline Phosphatase 46 30 - 115 U/L 07/19/2021 3:39 AM EDT [facility] AST 13 10 - 40 U/L 07/19/2021 3:39 AM EDT [facility] ALT 16 10 - 40 U/L 07/19/2021 3:39 AM EDT [facility] BUN 29(H) 7 - 23 mg/dL 07/19/2021 3:39 AM EDT [facility] Blood Structure of peripheral vein / Unknown Venipuncture / Unknown 07/19/2021 2:56 AM EDT 07/19/2021 3:09 AM EDT Marietta Wilhelm PUBLIC SERVICE DIRECTOR LAB BLOOD ORDERABLES Final Result [email or web address] [place] [facility] [address] [place] [address], from Last 3 Months or Most Recently Relevant to Health Maintenance Insurance [employer] Advance Directives * Full Code (Latest Code Status on File) Date Activated Date Inactivated Comments 07/15/2021 3:20 AM 07/19/2021 5:11 PM Care Teams Gis Mapping Technician Relationship Specialty Start Date End Date Disha Callejas MD PCP - General Family Medicine 04/27/20
--- OUTSIDE RECORDS SUMMARY | 2024-11-13 07:16 | XMS_ITS | Clinical Summary ---
Author Organization [employer] Address [address] [place] [address] Care Team Providers Care Drum Printer Name Role Phone Kathy Hair MD Primary Care Provide r Allergies No known active allergies Medications cyclobenzaprine (Flexeril) 10 MG tablet Take 1 tablet (10 mg) by mouth 3 times daily for 10 days. 30 tablet 08/13/20 23 Active naproxen (Naprosyn) 500 MG tablet TAKE 1 TABLET BY MOUTH TWICE A DAY 60 tablet 10/21/19 24 Active metoprolol succinate XL (Toprol-XL) 25 MG 24 hr tabletIndication s:Essential hypertension TOME 1 TABLETA POR VIA ORAL TODOS [place] *DO NOT CRUSH/CHEW* 90 tablet 04/21/20 24 Active lisinopril 40 MG tabletIndication s:Essential hypertension Take 1 tablet (40 mg) by mouth Once per day. 90 tablet 04/21/20 24 Active naproxen (Naprosyn) 250 MG tablet Take 1 tablet (250 mg) by mouth if needed in the morning and at bedtime (pain). 20 tablet 04/21/20 24 025 Active lidocaine (Lidoderm) 5 % patch Apply 1 patch topically Once per day. Remove & discard patch within 12 hours or as directed by MD. 30 patch 2 04/21/20 24 025 Active lisinopril 40 MG tabletIndication s:Essential hypertension Take 1 tablet (40 mg) by mouth Once per day. 90 tablet 1 07/16/20 24 Active hydroCHLOROthiaz brenda (HYDRODiuril) 25 MG tabletIndication s:Essential hypertension Take 1 tablet (25 mg) by mouth Once per day. PLEASE DISCONTINUE CHLORTHALIDONE 25mg 90 tablet 1 07/16/20 24 Active metoprolol succinate XL (Toprol XL) 25 MG 24 hr tabletIndication s:Essential hypertension Take 1 tablet (25 mg) by mouth Once per day. Do not crush or chew. 90 tablet 1 07/16/20 24 025 Active tadalafil (Cialis) 10 MG tablet Take 1 tablet (10 mg) by mouth if needed each day for erectile dysfunction. 20 tablet 1 07/16/20 24 Active atorvastatin (Lipitor) 40 MG tabletIndication s:History of atrial fibrillation Take 1 tablet (40 mg) by mouth Once per day. TAKE 1 TABLET BY MOUTH EVERY DAY 90 tablet 09/15/20 24 025 Active tadalafil (Cialis) 10 MG tabletIndication s:Erectile dysfunction, unspecified erectile dysfunction type Take 1 tablet (10 mg) by mouth if needed each day for erectile dysfunction. TAKE 1 TABLET (10 MG) BY MOUTH IF NEEDED EACH DAY FOR ERECTILE DYSFUNCTION. - NOT COVERED 10 tablet 2 09/15/20 Active metFORMIN (Glucophage) 500 MG tabletIndication s:Newly diagnosed diabetes (CMS/HCC) Take 1 tablet (500 mg) by mouth with breakfast and with evening meal. 60 tablet 11 09/17/20 24 025 Active FREESTYLE LITE test stripIndications :Newly diagnosed diabetes (CMS/HCC) Use to test blood sugar 1 times daily 100 each 12 09/17/20 24 025 Active Lancets miscIndications: Newly diagnosed diabetes (CMS/HCC) Use to test blood sugar 1 times daily 100 each 09/17/20 Active Alcohol Swabs 70 % padsIndications: Newly diagnosed diabetes (CMS/HCC) Use to test blood sugar 1 times daily 100 each 09/17/20 Active Blood Glucose Monitoring Suppl (FreeStyle Medical [place]) w/Device kitIndications:N ewly diagnosed diabetes (CMS/HCC) Use to test blood sugar 1 times daily 1 kit 09/17/20 Active Active Problems Problem Noted Date Diagnosed Date Hemoptysis 09/15/2024 Family history of colon cancer 09/15/2024 Hypertension 04/21/2024 Assessment & Plan (09/15/2024 1:56 PM EST): Maintenance: BMP: ordered Lipid Panel: ordered ASCVD Risk: Calculate pending updated labs - Aerobic exercise to reduce BP. Initial goal of 30 min walk 3-5x/week. Increase as tolerated. - low-sodium diet (goal: <2g/day) and heart healthy diet such as DASH to reduce BP and prevent ASCVD. - Home BP monitoring 1-2 x day with goal of <140/90. - Seek immediate medical attention for chest pain, palpitations, SOB, syncope, or sudden changes in mental status. - Do not change or discontinue current prescriptions without first consulting health care provider History of renal carcinoma 10/02/2023 History of MA (myocardial infarction) 10/02/2023 Encounters Date Type Department Care Team Description 09/17/2024 Telephone [facility] [address] [place] [phone] Nicol Velázquez RN Results 09/17/2024 Orders Only [address] [address] Kathy Hair MD Newly diagnosed diabetes (CMS/HCC) (Primary Dx) 09/15/2024 10:15 AM EST Office Visit [address] [address] Kathy Hair MD Erectile dysfunction, unspecified erectile dysfunction type (Primary Dx); Hemoptysis; Family history of colon cancer; History of renal carcinoma; Hypertension, unspecified type; History of atrial fibrillation; Glaucoma, unspecified glaucoma type, unspecified laterality 09/15/2024 Travel 09/04/2024 Patient Outreach [address] [address] Kathy Hair MD Pre-visit Planning (SDOH screening negative and tobacco screening negative) from Last 3 Months Social History Tobacco Use Types Packs/Day Years Used Date Smoking Tobacco: Never Passive Smoke Exposure: Never Smokeless Tobacco: Never Tobacco Cessation:Counseling Given: Not Answered Alcohol Use Standard Drinks/Week Comments Never 0 (1 standard drink = 0.6 oz pur e alcohol) Depression Answer Date Recorded Patient Health Questionnaire-9 Score 0 09/15/2024 Patient Health Questionnaire-9 Score 0 09/15/2024 Last PHQ-9: Questionnaire Data Not on file 1 11/16/2023 Housing Stability Answer Date Recorded What is your housing situation today? I have kaye sing 09/04/[address] you li ve. Do you have problems with any of the following? None of the above 09/04/2024 Food Insecurity Answer Date Recorded Within the past 12 months, y ou worried that your food would run out before you got money to buy more: Never True 09/04/2024 Within the past 12 months,th e food you bought just didn't last and you didn't have enough money to get more: Never True Transportation Answer Date Recorded In the past 12 months, has l ack of transportation kept you from medical appts, meetings, work or from getting things needed for daily living? No 09/04/2024 Utilities Answer Date Recorded In the past 12 months, has t he electric, gas, oil or water company threatened to shut off services in your home? No 09/04/2024 Depression Answer Date Recorded Patient Health Questionnaire-2 Score 0 09/15/2024 Internet Access Answer Date Recorded Internet Access Q1 No 09/15/2024 Internet Access Q2 I do not want or need it 08/24 Sex and Gender Information Value Date Recorded Sex Assigned at Male 07/16/2023 3:15 PM EDT Legal Sex Male 1:08 PM EDT Gender Identity Male 07/16/2023 3:15 PM EDT Sexual Orientation Straight 07/16/2023 3: 15 PM EDT Last Filed Vital Signs Vital Sign Reading Time Taken Comments Blood Pressure 139/88 09/15/2024 10:06 AM EST Pulse 65 09/15/2024 10:06 AM EST Temperature 35.8 ??C (96.5 ??F) 09/15/2024 10:[address] Respiratory Rate 20 09/15/2024 10:06 AM EST Oxygen Saturation 93% 09/15/2024 10:06 AM EST Inhaled Oxygen Concentration - - Weight 113 kg (250 lb) 09/15/2024 10:06 AM EST Height 182.9 cm (6') 09/15/2024 10:06 AM EST Body Mass Index 33.91 09/15/2024 10:06 AM EST Plan of Treatment Upcoming Encounters Date Type Department Care Team (Late st Contact Info) Description 12/15/2024 10:00 AM EDT Office Visit [facility] [address] [place] [address] Kathy Hair MD [address] [place] [address] Health Maintenance Due Date Last Done Comments CT Colonography 1970 Colonoscopy 1970 Colorectal Cancer Screening 1970 FIT DNA/Cologuard 1970 FIT 1970 FOBT 1970 Sigmoidoscopy 1970 Diabetes: Foot Exam 1980 Eye Exam 1980 DTaP/Tdap/Td Vaccines (1 - Tdap) 1989 Diabetes: Urine Protein Screening 1989 Hepatitis B Vaccines (1 of 3 - 19+ 3-dose series) 1989 Pneumococcal Vaccine: 50+ Years (1 of 2 - PCV) 1989 Zoster Vaccines (1 of 2) 2020 COVID-19 Vaccine ( - 2023-2 5 season) 2024 Influenza Vaccine (#1) 2024 Diabetes: Hemoglobin A1C 03/16/2025 09/15/2024 Alcohol/Substance Use Screening 09/15/2025 09/15/2024 Depression Screening 09/15/2025 09/15/2024, 09/15/2024 Lipid Panel 09/15/2025 09/15/2024 SDOH Screening 09/15/2025 09/15/2024 Tobacco Screening 09/15/2025 09/15/2024 RSV Patients and Patients Aged 60 years or older (1 - 1-dose 75+ series) 2045 HIV Screening Completed 09/15/2024 Hepatitis C Screening Completed 09/15/2024 HIB Vaccines Aged Out No longer eligi ble based on patient's age to complete this topic HPV Vaccines Aged Out No longer eligi ble based on patient's age to complete this topic Hepatitis A Vaccines Aged Out No long er eligible based on patient's age to complete this topic IPV Vaccines Aged Out No longer eligi ble based on patient's age to complete this topic Meningococcal Vaccine Aged Out No jose amber eligible based on patient's age to complete this topic RSV under 20 months Aged Out No longe r eligible based on patient's age to complete this topic Rotavirus Vaccines Aged Out No longer eligible based on patient's age to complete this topic Procedures Procedure Name Priority Date/Time Associated Diagnosis Comments PSA, TOTAL WITH REFLEX TO PSA, FREE Routine 09/15/2024 10:59 AM EST History of renal carcinoma TSH W/REFLEX TO FT4 Routine 09/15/2024 1 0:59 AM EST Hemoptysis Hypertension, unspecified type VITAMIN D,25-OH,TOTAL,IA Routine 09/15/2024 10:59 AM EST Hemoptysis History of renal carcinoma LIPID PANEL, STANDARD Routine 09/15/2024 10:59 AM EST Hemoptysis History of renal carcinoma HEPATITIS C AB W/REFL TO HCV RNA, QN, PCR Routine 09/15/2024 10:59 AM EST Hemoptysis History of renal carcinoma HIV 1/2 ANTIGEN/ANTIBODY, FOURTH GENERATION W/RFL Routine 09/15/2024 10:59 AM EST Hemoptysis History of renal carcinoma HEMOGLOBIN A1C Routine 09/15/2024 10:59 AM EST Hemoptysis History of renal carcinoma COMPREHENSIVE METABOLIC PANEL Routine 09/15/2024 10:59 AM EST Hemoptysis History of renal carcinoma CBC WITH AUTO DIFFERENTIAL Routine 09/15/2024 10:59 AM EST Hemoptysis History of renal carcinoma from Last 3 Months Results * Vitamin D, 25-Hydroxy, Total, Immunoassay (09/15/2024 10:59 AM EST) Vitamin D 25-OH Total 37.3 >30 ng/mL [facility] Comment:Health Based Referen ce Values*< 20 ng/mL Ptzjfckmi81-54 ng/mL Insufficient> 30 ng/mL Sufficient*Velasquez AGUAYO. N Engl J Med. 2007;357:266-280Care must be taken in interpreting Vitamin D results fromdifferent laboratories and methodologies. Published datademonstrated that results from patients undergoinghemodialysis may show a negative bias when tested withvarious automated 25-OH vitamin D assays when compared toLC-MS/MS.When testing samples from patients whose predominant form ofVitamin D is Vitamin D2, such as patients receiving VitaminD2 supplementation, results that are subtherapeutic shouldbe confirmed with another method such as LC-MS/MS. Blood Venous blood specimen / Unknown 09/15/2024 10:59 AM EST 09/15/2024 1:13 PM EST Kathy Jennings MD LAB BLOOD ORDERABLES Final Result Performing Organization Address [facility]/ZIP Co de Phone Number [facility] [address] [place] [phone] * TSH with Reflex to Free T4 (09/15/2024 10:59 AM EST) TSH reflex Free T4 1.81 0.32 - 4.0 uIU/mL [facility] Blood Venous blood specimen / Unknown 09/15/2024 10:59 AM EST 09/15/2024 1:13 PM EST us Kathy Jennings MD LAB BLOOD ORDERABLES Final Result Performing Organization Address [facility] Co in Phone Number [facility] [address] [place] [phone] * PSA, Total With Reflex to PSA, Free (09/15/2024 10:59 AM EST) PSA,Total (Free>4and<10) 0.47 0.00 - 4.00 ng/mL [facility] Comment:A Free PSA was not p erformed: The percentage of Free PSA can be used to enhance the differentiation of prostate cancer from benign prostatic disease in subjects whose PSA levels are between 4.0 and 10.0 ng/mL. For subjects whose PSA levels are below 4.0 or above 10.0 ng/mL, the risk of prostate cancer is determined on the basis of the PSA alone. Therefore the % Free PSA is recommended only for those subjects whose PSA levels are between 4.0 and 10.0 ng/mL.PSA methodology: [employer] Alinity i ChemiluminescentMicroparticle Immunoassay (CMIA) 09/15/2024 10:5 9 AM EST 09/15/2024 1:13 PM EST Kathy Jennings MD LAB BLOOD ORDERABLES Final Result [facility] [address] [place] [phone] * CBC auto differential (09/15/2024 10:59 AM EST) White Blood Count 6.1 4.8 - 10.8 X10*3/uL [facility] Red Blood Count 5.04 4.60 - 5.80 X10*6/uL [facility] Hemoglobin 15.0 14.0 - 18.0 g/dl [facility] Hematocrit 43.5 42.0 - 52.0 % [facility] Mean Corpuscular Volume 86.3 80.0 - 98.0 fL [facility] Mean Corpuscular Hemoglobin 29.8 27.0 - 33.0 pg [facility] Mean Corpuscular HGB Conc 34.5 31.0 - 36.0 g/dl [facility] Red Cell Distribution Width 13.4 11.0 - 16.0 % [facility] Platelet Count 294 160 - 400 X10*3/uL [facility] Mean Platelet Volume 11.0 9.4 - 12.4 fL [facility] Neutrophils Percent Auto 58.7 45 - 73 % [facility] Imm Gran Pct Auto 0.2 0.0 - 0.4 % [facility] Lymphocytes Percent Auto 27.2 20 - 40 % [facility] Monocytes Percent Auto 10.8 2 - 11 % [facility] Eosinophils Percent Auto 1.8 0 - 4 % [facility] Basophils Percent Auto 1.3 0 - 2 % [facility] NRBC Pct Auto 0.0 0.0 - 0.2 /100WBC [facility] Neutrophils Absolute Auto 3.6 2.0 - 8.3 x10*3/uL [facility] Imm Gran Abs Auto 0.01 0.00 - 0.03 X10*3/uL [facility] Lymphocytes Absolute Auto 1.7 1.2 - 4.9 X10*3/uL [facility] Monocytes Absolute Auto 0.7 0.1 - 1.2 X10*3/uL [facility] Eosinophils Absolute Auto 0.1 0.0 - 0.4 X10*3/uL [facility] Basophils Absolute Auto 0.1 0.0 - 0.2 X10*3/uL [facility] NRBC Abs Auto 0.000 0.0 - 0.012 X10*3/uL [facility] Blood Venous blood specimen / Unknown 09/15/2024 10:59 AM EST 09/15/2024 1:13 PM EST us Kathy Jennings MD LAB BLOOD ORDERABLES Final Result Performing Organization Address City/[facility]/ZIP Co de Phone Number [facility] [address] [place] [phone] * Hepatitis C Antibody with Reflex to HCV, RNA, Quantitative, Real-Time PCR (09/15/2024 10:59 AM EST) Hepatitis C Antibody Nonreactive Nonreactive [facility] Comment:Antibodies to HCV no t detected; does not exclude early acuteHCV infection. Blood Venous blood specimen / Unknown 09/15/2024 10:59 AM EST 09/15/2024 1:13 PM EST Kathy Jennings MD LAB BLOOD ORDERABLES Final Result Performing Organization Address [facility]/ZIP Co de Phone Number [facility] [address] [place] [phone] * HIV-1/2 Antigen and Antibodies, Fourth Generation, with Reflexes (09/15/2024 10:59 AM EST) HIV AB/AG Nonreactive Nonreactive [facility] Comment:HIV-1 p24 Ag and/or HIV-1/HIV-2 Ab not detected.A test result that is nonreactive does not exclude thepossibility of exposure to or infection with HIV-1 and/orHIV-2. Nonreactive results in this assay for individualswith prior exposure to HIV-1 and/or HIV-2 may be due toantigen and antibody levels that are below the limit ofdetection of this assay.The [employer] HIV Ag/Ab Combo assay result andsupplemental assay results should be interpreted inconjunction with the patient's clinical presentation,history and other laboratory results. If the results areinconsistent with clinical evidence, additional testing issuggested to confirm the result. Blood Venous blood specimen / Unknown 09/15/2024 10:59 AM EST 09/15/2024 1:13 PM EST us Kathy Jennings MD LAB BLOOD ORDERABLES Final Result [facility] [address] [place] [address] [phone] * (ABNORMAL) Hemoglobin A1c (09/15/2024 10:59 AM EST) Hemoglobin A1c 6.5(H) <6.0 % [facility] Comment:Hemoglobin A1C Refer ence Range Adults: 4.8 - 6.0 % Non diabetic: < 6.0 % Goal: < 7.0 %Additional Action Suggested: > 8.0 %Note: Hemoglobin A1c results are invalid for patients with abnormal amounts of HbF. Blood transfusions may impact the HbA1c concentration in the patient sample. Estimated Average Glucose 140 mg/dL [facility] Comment:eAG = Estimated ave rage glucose which is %A1C expressed asaverage glucose, using the formula of the K5F-UnxsarrNifsuyi Glucose study (ADAG), Diabetes Care, Vol.31,#8,2007 Blood Venous blood specimen / Unknown 09/15/2024 10:59 AM EST 09/15/2024 1:13 PM EST us Kathy Jenninsg MD LAB BLOOD ORDERABLES Final Result Performing Organization Address [facility] Co de Phone Number [facility] [address] [place] [phone] * (ABNORMAL) Lipid Panel, Standard (09/15/2024 10:59 AM EST) Triglycerides 134 <150 mg/dL [facility] Comment:Desirable Triglyceri de: less than 150 mg/dLBorderline High Triglyceride 150-199 mg/dLHigh Triglyceride: 200-499 mg/dLVery High Triglyceride: greater than or equal to 5OO mg/dL Cholesterol 180 <200 mg/dL [facility] Comment:Desirable Cholestero l: less than 200 mg/dLBorderline High Cholesterol: 200-239 mg/dLHigh Cholesterol: greater than 239 mg/dL LDL Cholesterol Calculated 119(H) <100 mg/dL [facility] Comment:Desirable LDL: less than 100 mg/dLNear Optimal/Above Optimal LDL: 110- 129 mg/dLBorderline High LDL: 130-159 mg/dLHigh LDL: 160-189 mg/dLVery High LDL: greater than or equal to 190 mg/dL HDL Cholesterol 35(L) >40 mg/dL [facility] Comment:Desirable HDL: great er than 40 mg/dL Note: This HDL assay may give artificially low results in patients with liver disease. Blood Venous blood specimen / Unknown 09/15/2024 10:59 AM EST 09/15/2024 1:13 PM EST us Kathy Jennings MD LAB BLOOD ORDERABLES Final Result Performing Organization Address [facility]/ZIP Co de Phone Number [facility] [address] [place] [phone] * (ABNORMAL) Comprehensive Metabolic Panel (09/15/2024 10:59 AM EST) Sodium 140 135 - 145 mmol/L [facility] Potassium 3.4 3.3 - 5.1 mmol/L [facility] Chloride 102 96 - 108 mmol/L [facility] Carbon Dioxide 31(H) 22 - 29 mmol/L [facility] Anion Gap 10(L) 12 - 20 [facility] Urea Nitrogen (BUN) 20(H) 9 - 16 mg/dL [facility] Creatinine, Serum 0.87 0.5 - 1.4 mg/dL [facility] Estimated Glomerular Filt Rate >60 [facility] Comment:Chronic Kidney Disea se: Estimated GFR < 60 mL/min/1.12i2Kjjyah Kidney Disease: Estimated GFR < 15 mL/min/1.73m2 Glucose 119(H) 60 - 115 mg/dL [facility] Calcium 9.3 8.4 - 10.2 mg/dL [facility] Bilirubin, Total 0.6 0.0 - 1.0 mg/dL [facility] Aspartate Amino Transferase 27 5 - 37 U/L [facility] Alanine Aminotransferase 26 0 - 40 U/L [facility] Total Protein 8.0 6.5 - 8.0 g/dL [facility] Albumin Level 4.1 3.5 - 5.0 g/dL [facility] Alkaline Phosphatase 59 39 - 117 U/L [facility] Blood Venous blood specimen / Unknown 09/15/2024 10:59 AM EST 09/15/2024 1:13 PM EST us Kathy Jennings MD LAB BLOOD ORDERABLES Final Result [facility] [address] [place], [place] [phone] from Last 3 Months Insurance [facility] C3 Care Teams Drum Printer Relationship Specialty Start Date End Date Kathy Hair MD [address] [place] [phone] PCP - General Internal Medicine 09/15/24
--- OUTSIDE RECORDS SUMMARY | 2024-11-13 07:16 | XMS_ITS | Encounter Summary ---
Author Organization [employer] Address [address] [place] [address] Care Team Providers Care Asparagus Cutter Name Role Phone Kathy Hair MD Primary Care Provide r Reason for Visit * Reason Comments Med Refill Encounter Details Date Type Department Care Team (Late Contact Info) Description 07/15/2024 Refill [facility] [address] [place] [phone] Kenan Mays MD [address] [place] [phone] Essential hypertension Social History Tobacco Use Types [...] Description 12/15/2024 10:00 AM EDT Office Visit [facility] [address] [place] [phone] Kathy Hair MD [address] [place] [phone] documented as of this encounter Visit Diagnoses Diagnosis Essential hypertension Unspecified essential hypertension documented in this encounter Care Teams Asparagus Cutter Relationship Specialty Start Date End Date Kathy Hair MD [address] [place] [phone] PCP - General Internal Medicine 09/15/24 documented as of this encounter
--- OUTSIDE RECORDS SUMMARY | 2024-11-13 07:16 | XMS_ITS | Encounter Summary ---
Author Organization [employer] Address [address] [place] [address] Care Team Providers Care Suspect Artist Supervisor Name Role Phone aKthy Hair MD Primary Care Provide r Reason for Visit * Reason Comments Med Refill Encounter Details Date Type Department Care Team ([facility] Contact Info) Description 01/10/2024 Refill [facility] [address] [place] [address] Annelise Joseph FNP [address] [place] [address] Social History Tobacco Use Types Packs/Day Years [...] Encounters Date Type Department Care Team (Late Contact Info) Description 12/15/2024 10:00 AM EDT Office Visit [facility] [address] [place] [address] Kathy Hair MD [address] [place] [address] documented as of this encounter Visit Diagnoses Not on filedocumented in this encounter Care Teams Suspect Artist Supervisor Relationship Specialty Start Date End Date Kathy Hair MD [address] [place] [phone] PCP - General Internal Medicine 09/15/24 documented as of this encounter
--- OUTSIDE RECORDS SUMMARY | 2024-11-13 07:17 | XMS_ITS | Data Portability ---
Author Organization [place] - [facility] Address [address] [place] [address] Care Team Providers Care Drycleaner Name Role Phone DISHA CALLEJAS Primary Care Provider DISHA CALLEJAS Referring Provider Assessment No assessment recorded. Plan of Treatment Reminders Order Date Submit Date Provider Last Modified By Organization Details Last Modified Time Details Appointments None recorded. Lab urinalysis, dipstick [address] ([facility]), [address], [place], [address], 08:13:50 culture, urine 2021 [facility], [address] [place], [address], 10:17:56 HbA1c (hemoglobin A1c), blood 2021 [email or web address] [facility], [address] [place], [address], 10:40:35 CMP, serum or plasma 2021 [facility], [address] [place], [address], 17:17:13 lipid panel, serum 2021 [facility], [address] [place], [address], 2 17:17:14 Referral gastroenter ologist [facility] [place] [address] - Gi, [address] [facility], [address], [place], [address], 08:26:45 nutritionis t/dietitian referral 2020 021 [email or web address] 4 [facility] (Nutrition Services), [address] [place], [address], 15:42:35 Procedures None recorded. Surgeries None recorded. Imaging US, kidney - right kidney 2021 022 [facility] (Central Scheduling), [address] [place], [address], 2 08:54:00 Medication Orders diclofenac 1 % topical gel 2021 022 [facility]/Pharmacy #[id number], [address] [place], [place], [id number], 2 12:33:58 metronidazo le 500 mg tablet [address]/Pharmacy #[id number], [address] [place], [place], [id number], 13:50:46 Cipro 500 mg tablet [address]/Pharmacy #[id number], [address] [place], [place], [id number], 2 13:50:40 Patient Targets Encounter Date Encounter Id Patient Goals Patient Target Last Modified By Organization Details Last Modified Time Goals:1. Promote weight loss of 1# per week.2. Promote BGlu management with HbA1C <5.7%3. Promote lipid panel WNL.4. Promote regular physical activity. Not available 12/29/2021 11:18:47 Patient Instructions Encounter Date Encounter Id Patient Instructions Last Modified By Organization Details Last Modified Time 12/06/2021 [id number] 2 month f/u or sooner if needed Not available 12/29/2021 11:18:45 Recomendaciones: 1. Disfruta de 3 comidas y 3 meriendas al d? ? ?a. - Incluir prote? ? ?na en cada comida y merienda. 2. En el desayuno, cambie a un johnston integral, charli el 100 % de carl integral. Agregue un pu? ? ?ado o prieto owen? ? ?a pieza de fruta. - Si tiene cereal fr? ? ?o, pruebe Cheerios originales o Shredded Wheat (1 eber? ? ?n owen? ? ?o). Agregue prote? ? ?jeff, charli nueces, leche de lucia o huevos. Agregue un pu? ? ?ado de fruta si es posible. 3. Utilice el m? ? ?todo del plato para crear almuerzos y cenas equilibrados con: - 1/2 plato de verduras sin almid? ? ?n - 1/4 plato cereales/verduras feculentas/frijole s - 1/4 plato de prote? ? ?na - Opcional pieza o pu? ? ?ado de fruta 4. Combine un alimento con prote? ? ?jeff/grasas con un alimento con carbohidratos para crear un refrigerio equilibrado. Evite comer fuera de los horarios establecidos de comidas y meriendas. 5. Incorporar cualquier cantidad de tiempo en la bicicleta est? ? ?brionna o caminadora, 5 d? ? ?as a la semana. Si hace buen tiempo, caminar al aire flip tambi? ? ?n es prieto excelente opci? ? ?n de ejercicio. Recommendations: 1. Enjoy 3 meals and 3 snacks daily. - Include protein with each meal and snack. 2. At breakfast, switch to a whole grain bread, such as 100% whole wheat. Add a handful or small piece of fruit. - If you have cold cereal, try original Cheerios or Shredded Wheat (1 small bowl). Add protein, such as walnuts, dairy milk, or eggs. Add a handful of fruit if possible. 3. Use the Plate Method to create balanced lunch and dinner meals with: - 1/2 plate nonstarchy vegetables - 1/4 plate grains/starchy vegetables/beans - 1/4 plate protein - Optional piece or handful of fruit 4. Combine a protein/fat food with a carbohydrate food to create a balanced snack. Avoid eating outside of established meal and snack times. 5. Incorporate any amount of time on the stationary bike or treadmill, 5 days per week. If the weather is nice, walking outside is also a great exercise option. Not available 12/06/2021 10:28:42 Reason for Referral Tankage Grinder/dietitian Refer ral for Prediabetes Referring Physician: Disha Callejas [facility], Encounter Date: 08/02/2021 Machine Fitter Referral for Hematemesis Referring Physician: Disha Callejas [facility], Encounter Date: 10/26/2021 Results Created Date Observation Date Name Description Value Unit Range Abnormal Flag Note LastModifiedBy Organization Detail LastModifiedTime 10/26/19 22 10/26/2021 HEMOG LOBIN A1C hemoglobin A1C % 6.2 % 4.0-5. 7 high % of the total HgB Inter preta tion ----- ----- ----- --- ----- ----- ----- - <5.7 Consi stent with the absen ce of diabe ras 5.7-6 .4 Consi stent with incre ased risk for diabe ras (pred iabet es) > or = to 6.5 Consi stent with Diabe ras Not Available [facility] Laboratory Department [address] [place], [address] 10/26/2021 16:50:52 10/26/1910/26/2021 COMPR EHENS MACIE MET. PANEL sodium 136 mmol/ L 136-14 5 normal Not Available [facility] Department [address] [place], [address] 10/26/2021 17:17:12 10/26/19 22 10/26/2021 COMPR EHENS MACIE MET. PANEL potassium 4.0 mmol/ L 3.5-5. 1 normal Not Available [facility] Department [address] [place], [address] 10/26/2021 17:17:12 10/26/19 22 10/26/2021 COMPR EHENS MACIE MET. PANEL chloride 100 mmol/ L 98-107 normal Not Available [facility] Department [address] [place], [address] 10/26/2021 17:17:12 10/26/19 22 10/26/2021 COMPR EHENS MACIE MET. PANEL carbon dioxide 25.3 mmol/ L 22-29 normal Not Available [facility] Department [address] [place], [address] 10/26/2021 17:17:12 10/26/19 22 10/26/2021 COMPR EHENS MACIE MET. PANEL anion gap 15 mmol/ L 10-20 normal Not Available [facility] Department [address] [place], [address] 10/26/2021 17:17:12 10/26/19 22 10/26/2021 COMPR EHENS MACIE MET. PANEL blood urea nitrogen 16 mg/dL 6-20 normal Not Available [facility] Laboratory Department [address] [place], [address] 10/26/2021 17:17:12 10/26/19 22 10/26/2021 COMPR EHENS MACIE MET. PANEL creatinine 0.79 mg/dL 0.70-1 .2 normal Not Available [facility] Department [address] [place], [address] 10/26/2021 17:17:12 10/26/19 22 10/26/2021 COMPR EHENS MACIE MET. PANEL glomerular filtration rate > 90 GFR Value : ml/mi n/1.7 3 squar e meter s * If patie nt is Afric an-Am robert n, multi ply resul t by 1.159 Chron ic Kidne y Disea se is defin ed as less than 60 ml/mi n/1.7 3 squar e meter s. Kidne y failu re is less than 15 ml/mi n/1.7 3 squar e meter s Test is not perfo rmed on patie nts under the age of 18 Not Available [facility] Laboratory Department [address] [place] [address], [address] 10/26/2021 17:17:12 10/26/19 22 10/26/2021 COMPR EHENS MACIE MET. PANEL glucose 116 mg/dL 70-106 high Not Available [facility] Department [address] [place] [address], [address] 10/26/2021 17:17:12 10/26/19 22 10/26/2021 COMPR EHENS MACIE MET. PANEL calcium 9.4 mg/dL 8.6-10 .3 normal Not Available [facility] Department [address] [place] [address], [address] 10/26/2021 17:17:12 10/26/19 22 10/26/2021 COMPR EHENS MACIE MET. PANEL bilirubin total 0.4 mg/dL 0.2-1. 2 normal Not Available [facility] Department [address] [place] [address], [address] 10/26/2021 17:17:12 10/26/19 22 10/26/2021 COMPR EHENS AMCIE MET. PANEL aspartate amino transferase 23 U/L 5-40 normal Not Available [facility] Laboratory Department [address] [place] [address], [address] 10/26/2021 17:17:12 10/26/19 22 10/26/2021 COMPR EHENS MACIE MET. PANEL alanine aminotransfe rase 27 U/L 5-41 normal Not Available [facility] Laboratory Department [address] [place], [address] 10/26/2021 17:17:12 10/26/19 22 10/26/2021 COMPR EHENS MACIE MET. PANEL total protein 7.1 g/dL 6.4-8. 3 normal Not Available [facility] Department [address] [place] [address], [address] 10/26/2021 17:17:12 10/26/19 22 10/26/2021 COMPR EHENS MACIE MET. PANEL albumin level 4.4 g/dL 3.5-5. 2 normal Not Available [facility] Department [address] [place] [address], [address] 10/26/2021 17:17:12 10/26/19 22 10/26/2021 COMPR EHENS MACIE MET. PANEL globulin 2.7 gm/dL 2.0-3. 5 normal Not Available [facility] Department [address] [place], [address] 10/26/2021 17:17:12 10/26/19 22 10/26/2021 COMPR EHENS MACIE MET. PANEL albumin globulin ratio 1.6 % 1.1-2. 5 normal Not Available [facility] Department [address] [place], [address] 10/26/2021 17:17:12 10/26/19 22 10/26/2021 COMPR EHENS MACIE MET. PANEL alkaline phosphatase 60 U/L 40-129 normal Not Available [facility] Laboratory Department [address] [place] [address], [address] 10/26/2021 17:17:12 10/26/19 22 10/26/2021 LIPID PANEL WITH REFLE X triglyceride s w/ reflex LDL 208 mg/dL 30-150 high Refer ence Range s: <150 mg/dl Faby l 150-1 99 mg/dl Borde rline High 200-4 99 mg/dl High >500 mg/dl Very High Not Available [facility] Department [address] [place] [address], [address] 10/26/2021 17:17:13 10/26/19 22 10/26/2021 LIPID PANEL WITH REFLE X cholesterol 148 mg/dL 100-20 0 normal Not Available [facility] Department [address] [place] [address], [address] 10/26/2021 17:17:13 10/26/19 22 10/26/2021 LIPID PANEL WITH REFLE X LDL cholesterol calculated 68.5 mg/dL 0-100 normal Natio nal Bri stero l Educa tion Progr am sugge sts the follo wing refer ence range : Optim al <100 mg/dL Near optim al/ab ove optim al 100-1 29 mg/dL Borde rline high 130-1 59 mg/dL High 160-1 89 mg/dL Very high >190 mg/dL Not Available [facility] Department [address] [place] [address], [address] 10/26/2021 17:17:13 10/26/19 22 10/26/2021 LIPID PANEL WITH REFLE X HDL cholesterol 37.9 mg/dL 40-60 low Major risk facto r for CHD: <40 mg/dL Negat macie risk facto r for CHD: >=60 mg/dL Not Available [facility] Department [address] [place] [address], [address] 10/26/2021 17:17:13 10/26/19 22 10/26/2021 LIPID PANEL WITH REFLE X chol HDL ratio 3.91 Risk CHOL/ HDL CHOL/ HDL Ratio Male Femal e 1/2 AVERA GE 3.43 3.27 AVERA GE 4.97 4.44 2 X AVERA GE 9.55 7.05 3 X AVERA GE 23.39 11.04 Not Available [facility] Laboratory Department [address] [place] [address], [address] 10/26/2021 17:17:13 12/06/19 22 12/05/2021 URINE CULTU RE results ----- ----- ----- ----- ----- ----- ----- ----- ----- ----- ----- ----- ----- ----- ----- ----- ----- ----- -- RUN DATE: 12/07 Eunice rider *Live * - LAB PAGE 1 RUN TIME: 1017 Speci men Inqui ry ----- ----- ----- ----- ----- ----- ----- ----- ----- ----- ----- ----- ----- ----- ----- ----- ----- ----- -- PATIE NT: Nancy Wilcox ACCT: [id number] [facility] U: [id number] AGE/S X: 51/M ROOM: RE12/[address]: Aurelia carver : 05/27 BED: DIS: STATU S: DEP CLI TLOC: ----- ----- ----- ----- ----- ----- ----- ----- ----- ----- ----- ----- ----- ----- ----- ----- ----- ----- -- SPEC #: [id number] LUCRECIA: 12/05-U NK STATU S: COMP REQ #: [id number] RECD: 12/05- [address]: Aurelia carver [facility] E: Caleb mullen ENTR: 12/05- [address]: Alina ENG C: ORDER ED: Urine Cultu re ACT WKST: CULT 12/07 #1 ----- ----- ----- ----- ----- ----- ----- ----- ----- ----- ----- ----- ----- ----- ----- ----- ----- ----- -- Proce willam De Dios t ----- ----- ----- ----- ----- ----- ----- ----- ----- ----- ----- ----- ----- ----- ----- ----- ----- ----- -- Urine Cultu re Final Colon y Count : <1,00 0 col/m L No Growt h ----- ----- ----- ----- ----- ----- ----- ----- ----- ----- ----- ----- ----- ----- ----- ----- ----- ----- -- END OF REPOR T Not Available [facility] Laboratory Department [address], [place], [address] 12/07/2021 10:17:56 12/06/19 22 12/05/2021 urina lysis , dipst ick SPECIFIC GRAVITY 1.010 Not Available [facility] ([facility]) [address] [place], [address], 12/05/2021 08:06:56 12/06/19 22 12/05/2021 urina lysis , dipst ick PH 7.0 Not Available [facility] ([facility]) [address] [place], [address], 12/05/2021 08:06:56 12/06/19 22 12/05/2021 urina lysis , dipst ick LEUKOCYTES Neg Not Available [facility] ([facility]) [address] [place], [address], 12/05/2021 08:06:56 12/06/19 22 12/05/2021 urina lysis , dipst ick NITRITE Neg Not Available [facility] ([facility]) [address] [place], [address], 12/05/2021 08:06:56 12/06/19 22 12/05/2021 urina lysis , dipst ick PROTEIN Neg Not Available [facility] ([facility]) [address] [place], [address], 12/05/2021 08:06:56 12/06/19 22 12/05/2021 urina lysis , dipst ick GLUCOSE Neg Not Available [facility] ([facility]) [address] [place], [address], 12/05/2021 08:06:56 12/06/19 22 12/05/2021 urina lysis , dipst ick KETONE Neg Not Available [facility] ([facility]) [address], [place], [address], 12/05/2021 08:06:56 12/06/19 22 12/05/2021 urina lysis , dipst ick UROBILINOGEN Normal Not Available [facility] ([facility]) [address], [place], [address], 12/05/2021 08:06:56 12/06/19 22 12/05/2021 urina lysis , dipst ick BILIRUBIN Neg Not Available [facility] [address] [place], [address], 12/05/2021 08:06:56 12/06/19 22 12/05/2021 urina lysis , dipst ick BLOOD Neg Not Available [facility] ([facility]) [address], [place], [address], 12/05/2021 08:06:56 12/07/19 22 12/06/2021 US, [facility] [address] [facility] [place] [address] Ultras ound Report Signed Patien t: Sarabjit Castelan MR#: [id number] : 1969 Acct:H [id number] Age/Se x: 51 / M ADM Date: Loc: [facility] Attend ing Dr: Disha lilly MD Orderbrent Bowie kei: Disha lilly Date of Servic e: Proced ure(s) : US renal BI Access ion Number (s): [id number] H cc: Disha lilly EXAM: US renal BI CLINIC AL INDICA TION: 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 Right kidney measur es 11.7 cm. No hydron ephros is. No calcul i. Defini te masses identi fied, althou gh study limite d by bowel gas. Concav ity of contou r interp olar region , sugges tive of prior partia l nephre ctomy. Normal cortic omedul [place] differ entiat ion. Left kidney measur es 13.4 cm. No hydron ephros is. No shadow ing calcul i. No masses identi fied. Normal cortic omedul [place] differ entiat ion. Bladde r decomp ressed , preven ting adequa te evalua tion. Electr onical ly Signed in Lara cribe By GIOVANY Colin MD, MD 004 US/US renal BI IMPRES DIANA: Study somewh at limite d by bowel gas. No hydron ephros is. No defini te solid renal masses identi fied, althou gh MRI withou t and with contra st or CT abdome n with contra st would be more sensit macie for postsu rgical survei llance of primar y malign alpa, or if clinic al suspic ion is high. Dictat ed By: Giovany colin Signed By: [id number] DD/DT: 0751 TD/TT: 0807 Transc riptio nist: [email or web address] [address] [place] [address], [address], 12/08/2021 08:15:53 Result Notes None recorded. Problems Name Problem SNOMED Code Status Onset Date Resolution Date Notes Provider Name and Address Organization Details Recorded Time Benign essential hypertensi on 1001014 Active 2019 Not Available [facility] 0 23:48:14 Hematemesi s 8155951 Active 2019 Carlton Hamilton MD [address] [place] [address]. [place], [address] , [facility] 0 17:09:26 COVID-19 653387185 Active 2020 Disha Callejas MD [address] [facility] [place], [address] , [facility] 15:39:26 Atrial fibrillati on 13577754 Active 2020 Disha Callejas MD [address] [facility] [place], [address] , [facility] 15:46:00 Glaucoma 87555830 Active 2020 Disha Callejas MD [address] [facility] [place], [address] , [facility] 15:46:06 Prediabete s 730469801 Active 2020 Disha Callejas MD [address] [place] [address] [place], [address] , [facility] 15:46:07 Nodule of lung 416629445 Active 2020 Disha Callejas MD [address] [place] [address] [place], [address] , [facility] 15:46:15 History of myocardial infarction 930753805 Active 2020 Disha Callejas MD [address] [place] [address] [place], [address] , [facility] 2 09:04:19 Left ventricula r hypertroph y 51069917 Active 2020 Disha Callejas MD [address] [place] [address] [place], [address] , [facility] 15:46:39 Erectile dysfunctio n 913284239 Active 2020 Disha Callejas MD [address] [facility] [place], [address] , [facility] 15:46:55 History of SARS-CoV-2 5315803356502 29133 Active 2020 [facility], [facility] 2 11:01:47 Myocardial infarction 17424444 Active 2021 Leora Castaneda, RN, BSN [facility], [facility] 2 08:51:03 Problem Notes None recorded. Procedures Surgical History Date Name Laterality Status Provider Name and Address Organization Details Recorded Time 12/07/19 22 Nutrition completed Monica Ferrara, , RDN, LDN [address] [place], [address], [facility] 12/29/2021 11:49:46 10/26/19 22 PHQ-9 Patient Health Questionnaire completed Disha Callejas MD [address] [place] [address], [address], [facility] 10/26/2021 11:40:38 06/16/20 20 PHQ-9 Patient Health Questionnaire completed Disha Callejas MD [address] [place] [address], [address], [facility] 06/16/2020 09:15:13 10/07/19 20 colonoscopy completed Disha Callejas MD [address] [place] [address], [address], [facility] 06/16/2020 08:45:24 partial nephrectomy completed Disha Callejas MD [address] [place] [address], [address], [facility] 04/07/2020 09:27:15 Imaging Results Imaging Date Name Status LastModified by Organiz ation Details LastModified Time 12/06/2021 US, kidney completed [email or web address] [address] [place], [address], 12/08/2021 08:15:53 Procedure Notes None recorded. Medical Equipment None Reported. Allergies No known drug allergies Medications Name Sig Start Date Stop Date Status Note LastModified by Organization Details LastModified Time Prescriptio n - Prior Authorizati on Request 10/19 completed Not Available Not Available Not Available latanoprost 0.005 % eye drops PONGA PRIETO GOTA EN LOS DOS OJOS AL ACOSTARSE active Not Available Not Available No t Available atorvastati n 40 mg tablet TOME PRIETO TABLETA TODOS LOS D AL ACOSTARSE active Not Available Not Available No t Available sildenafil 50 mg tablet TAKE 1 TABLET BY MOUTH 30 MINUTES PRIOR TO SEXUAL ACTIVITY DAILY NEEDED 08/02 completed Not Available Not Available Not Available benzonatate 200 mg capsule 10/26 completed Not Available Not Available Not Available metoprolol succinate ER 50 mg tablet,exte nded release 24 hr TOME PRIETO TABLETA TODOS LOS CALDERON active Not Available Not Available No t Available famotidine 40 mg tablet TAKE 1 TABLET BY MOUTH TWICE A DAY 2021 active Not Available Not Available Not Avai lable codeine sulfate 15 mg tablet 10/26 completed Not Available Not Available Not Available metronidazo le 500 mg tablet TOME PRIETO TABLETA CADA OCHO HORAS POR 10 D 04/30 completed Not Available Not Available Not Available chlorthalid one 25 mg tablet TAKE 1/2 TABLET POR VIA ORAL TODOS LOS CALDERON active Not Available Not Available No t Available amlodipine 5 mg tablet TAKE 1 TABLET BY MOUTH EVERY DAY 08/02 completed Not Available Not Available Not Available ciprofloxac in 500 mg tablet TOME PRIETO TABLETA CADA 12 HORAS POR 10 D 04/30 completed Not Available Not Available Not Available aspirin 81 mg tablet,carri yed release TOME PRIETO TABLETA TODOS LOS D active Not Available Not Available No t Available ciclopirox 8 % topical solution 08/02 completed Not Available Not Available Not Available hydrocortis one 2.5 % topical cream with perineal applicator APPLY SPARINGLY TO AFFECTED AREA 2 TO 4 TIMES A DAY 10/27 completed Not Available Not Available Not Available benzonatate 100 mg capsule TOME PRIETO TABLETA POR VIA ORAL POR 10 DAYS active Not Available Not Available No t Available omeprazole 20 mg capsule,del ayed release TAKE 1 CAPSULE BY MOUTH EVERY DAY active Not Available Not Available No t Available levofloxaci n 750 mg tablet 10/26 completed Not Available Not Available Not Available lisinopril 40 mg tablet TOME PRIETO TABLETA TODOS LOS D active Not Available Not Available No t Available tadalafil 10 mg tablet TAKE 1 TAB DAILY FOR SEXUAL ACTIVITY APPROXIMA TELY 30MIN BEFORE NO MORE THAN 1 IN 24HRS 2021 active Not Available Not Available Not Avai lable Spiriva with HandiHaler 18 mcg and inhalation capsules INHALE CONTENTS OF ONE CAPSULE POR V A ORAL TODOS LOS D active Not Available Not Available No t Available Athlete's Foot (terbinafin e) 1 % topical cream APPLY TO THE AFFECTED NAILS DAILY FOR 4 WEEKS 10/26 completed Not Available Not Available Not Available diclofenac 1 % topical gel APPLY 2 GRAMS TO THE AFFECTED AREA(S) BY TOPICAL ROUTE 4 TIMES PER DAY active Not Available Not Available No t Available Eliquis 5 mg tablet TAKE 1 TABLET BY MOUTH TWICE A DAY 10/26 completed Not Available Not Available Not Available Shingrix (PF) 50 mcg/0.5 mL intramuscul ar suspension, kit [facility] 10/19 completed Not Available Not Available Not Available Fluzone Quad (PF) 60 mcg (15 mcg x 4)/0.5 mL IM syringe [facility] 10/19 completed Not Available Not Available Not Available Vitals Date Recorded Body height Body mass index (BMI) Body weight Heart rate Oxygen saturation Oxygen saturation in Arterial blood by Pulse oximetry Systolic blood pressure Diastolic blood pressure Provider Name and Address Organization Details Last Updated DateTime 187.96 cm 32.6 kg/m2 572027. 46 g 67 /min 97 % 97 % 138 mm[Hg] 92 mm[Hg] Ken Weldon MA [facility] 15:15:44 Date Recorded Systolic blood pressure Diastolic blood pressure Provider Name and Address Organization Details Last Updated DateTime 08/02/2021 132 mm[Hg] 84 mm[Hg] Disha Callejas MD [address] [place] [address], [address], [facility] 08/02/2021 15:47:45 Date Recorded Body height Body mass index (BMI) Body weight Oxygen saturation Oxygen saturation in Arterial blood by Pulse oximetry Heart rate Systolic blood pressure Diastolic blood pressure Systolic blood pressure Diastolic blood pressure Provider Name and Address Organization Details Last Updated DateTime 2 187.96 cm 34 kg/m2 837008. 98 g 95 % 95 % 71 /min 128 mm[Hg] 100 mm[Hg] 130 mm[Hg] 102 mm[Hg] Catherine Ramirez [facility] 2 11:05:16 Date Recorded Body height Body mass index (BMI) Body weight Heart rate Systolic blood pressure Diastolic blood pressure Provider Name and Address Organization Details Last Updated DateTime 2 187.96 cm 33.5 kg/m2 504803. 61 g 64 /min 124 mm[Hg] 84 mm[Hg] Yandy Azizakurt [facility] 2 07:47:48 Date Recorded Body height Body mass index (BMI) Body weight Provider Name and Address Organization Details Last Updated DateTime 12/06/2021 187.96 cm 33.4 kg/m2 963630.02 g Monica Ferrara, MS, RDN, LDN [address] [place], [address], [facility] 12/06/2021 09:26:01 Date Recorded Body height Body mass index (BMI) Body weight Heart rate Oxygen saturation Oxygen saturation in Arterial blood by Pulse oximetry Systolic blood pressure Diastolic blood pressure Provider Name and Address Organization Details Last Updated DateTime 2 187.96 cm 33.7 kg/m2 614695 g 64 /min 98 % 98 % 123 mm[Hg] 82 mm[Hg] Peri Cazares [facility] 2 12:22:10 Social History Question Answer Notes LastModified by Organizat ion Details LastModified Time Tobacco Smoking Status Never Smoker Disha Callejas MD [address] [place], [address], [facility] 04/07/2020 09:18:54 What Is Your Level Of Alcohol Consumption? None Information not available 04/07/2020 How Much Tobacco Do You Chew? None Information not available 04/07/2020 Which Illicit Or Recreational Drugs Have You Used? Denies Information not available 04/07/2020 What Is Your Occupation? Unemployed Information not available 04/07/2020 Hepatitis C Screen 06/16/2020 Nonreactive Information not available 06/17/2020 Tobacco Use (smoking, Smokeless Tobacco) No Information not available 04/07/2020 Date Of Tobacco Screen 08/01/2021 [email or web address] Information not available 08/01/2021 Members Of Household 1 Information not available 04/07/2020 Marital Status Informatio n not available 04/07/2020 What Was The Date Of Your Most Recent Tobacco Screening? 10/26/2021 [email or web address] Information not available 10/26/2021 How Many Children Do You Have? 4 Information not available 04/07/2020 What Is Your Relationship Status? [email or web address] Information not available 08/01/2021 Do You Use Any Illicit Or Recreational Drugs? No [email or web address] Information not available 08/01/2021 Sex: Unknown Functional Status None recorded. Mental Status None recorded. Family History Relationship Description Onset Age of this Age Resolved Age Notes LastModified by Organization Details LastModified Time Father No current problems or disability [email or web address] Not available 04/07 09:25:02 Mother No current problems or disability [email or web address] Not available 04/07 09:25:02 Medical History No medical history recorded. Immunizations Vaccine Type Date Status Note Provider Nam e and Address Organization Details Recorded Time zoster recombinant 0 completed AURY Ballesteros [facility] 08/01/2021 15:38:02 COVID-19, mRNA, LNP-S, PF, 30 mcg/0.3 mL dose 1 completed Disha Callejas MD [address] [place] [address], [phone], [facility] 10/26/2021 11:31:11 COVID-19, mRNA, LNP-S, PF, 30 mcg/0.3 mL dose 1 completed Disha Callejas MD [address] [place] [address], [phone], [facility] 10/26/2021 11:31:11 Influenza, split virus, quadrivalent, PF 8 completed Disha Callejas MD [address] [place] [address] [place], [address], [facility] 10/26/2021 11:31:11 Influenza, split virus, trivalent, preservative 4 completed Disha Callejas MD [address] [place] [address] [place], [address], [facility] 10/26/2021 11:31:11 Influenza, split virus, trivalent, preservative 7 completed Disha Callejas MD [address] [place] [address] [place], [address], [facility] 10/26/2021 11:31:11 Influenza, split virus, quadrivalent, PF 1 completed Disha Callejas MD [address] [place] [address] [place], [address], [facility] 10/26/2021 11:31:11 Influenza, split virus, quadrivalent, PF 0 completed Disha Callejas MD [address] [place] [address] [place], [phone], [facility] 10/26/2021 11:31:11 Influenza, split virus, trivalent, preservative 1 completed Disha Callejas MD [address] [place] [address] [place], [phone], [facility] 10/26/2021 11:31:11 pneumococcal polysaccharide PPV23 1 completed Disha Callejas MD [address] [place] [address] [place], [address], [facility] 10/26/2021 11:31:11 Influenza, split virus, trivalent, preservative 5 completed Disha Callejas MD [address] [place] [address] [place], [address], [facility] 10/26/2021 11:31:11 Influenza, split virus, trivalent, preservative 2 completed Disha Callejas MD [address] [place] [address], [phone], [facility] 10/26/2021 11:31:11 Influenza, split virus, trivalent, preservative 6 completed Disha Callejas MD [address] [place] [address], [phone], [facility] 10/26/2021 11:31:11 Influenza, split virus, trivalent, preservative 3 completed Disha Callejas MD [address] [place] [address], [phone], [facility] 10/26/2021 11:31:11 Td (adult), 2 Lf tetanus toxoid, preservative free, adsorbed 1 completed Disha Callejas MD [address] [place] [address], [phone], [facility] 10/26/2021 11:31:11 Tdap 0 completed Yandy Irizarry CMA [facility] 06/16/2020 09:19:12 Past Encounters Encounter ID Performer Location Encounter Start Date Encounter Closed Date Diagnosis/Indication Diagnosis SNOMED-CT Code Diagnosis ICD10 Code Diagnosis Note [id number] Disha Callejas MD [address] [address] 04/07/2020 09:07:08 04/07/2020 09:33:17 Benign essential hypertension 1312593 I10 Patient has a history of hypertensi on for which he has been taking amlodipine 5mg and lisinopril 40mg daily. His blood pressure is currently well controlled . He will continue current medication s which were prescribed today. He will follow-up in 2 months for a physical. Glaucoma 61647245 H40.9 Patient has a history of glaucoma for which he uses eye drops. He has no refills at this time, but has an appointmen t scheduled with an eye doctor next month. Gastroesop hageal reflux disease 562456159 K21.9 Patient has a history of GERD for which he has been taking omeprazole 20mg daily. He notes that [facility], he got a colonoscop y and was supposed to get an endoscopy as he intermitte ntly has been spitting up blood. GI referral placed and omeprazole refilled. History of malignant neoplasm of kidney 159795112 Z85.528 Patient has a history of a renal tumor which was removed in 2013. He has not had significan t follow-up since then. Recommende d nephrology evaluation . Referral placed. [id number] Disha Callejas MD [facility] [address] [place] [address] 06/16/2020 08:29:53 06/16/2020 09:11:41 Adult health examination 446785967 Z00.00 Patient should discuss medical decisions with Health Care Proxy. Recommende d screenings included colonoscop y screening age 50, earlier based on family history/ri sk factors; one time screen for hepatitis C if born between 3658-4964 or has risk factors. Reviewed vaccines and current recommenda tions. Basic health topics include aerobic exercise, importance of healthy/ba lanced diet and minimizing caffeine and alcohol. Administra tion of diphtheria, pertussis, and tetanus vaccine 887803438 Z23 Patient due for Tdap vaccinatio n. Administer ed today. Screening for malignant neoplasm of colon 125774064 Z12.11 Patient reports a colonoscop y in September of 2019 while [facility]. No records available, but states he has a history of polyps. Will plan for follow-up colonoscop y in 3-5 years. Varicella vaccination 68 551657 Z23 Patient due for shingles vaccinatio n. Prescribed to his pharmacy. Benign ess ential hypertension 1462337 I10 Patient has a history of hypertensi on for which he has been taking amlodipine 5mg and lisinopril 40mg daily. His blood pressure is currently well controlled . He will continue current medication s which were prescribed today. He will follow-up in 2 months for a physical. At [facility] risk of sexually transmitted infection 778567939 Z20.2 Patient was [facility] in [facility] and would like to be tested for STDs. Blood and urine obtained for testing today. Hyperlipid emia screening 816223151 Z13.220 Patient due for hyperlipid emia screening. Lipid panel obtained today. Large prostate 963148578 N40.0 Patient has a slightly enlarged prostate on examinatio n. Will check PSA today. Impotence of organic origin 573403493 N52.9 Patient has been struggling with getting and maintainin g an erection. Discussed risks and benefits of medication . Prescribed sildenafil 50mg daily as needed. Patient will follow-up if not improving. Hemorrhoids 22461576 K64 .9 Patient has internal hemorrhoid s which are causing him pressure and discomfort . Prescribed hydrocorti sone cream to use topically and help his symptoms. [id number] Carlton Hamilton MD [facility] [address] [place] [address] [address] [place] [address] 07/18/2020 16:45:30 07/18/2020 17:23:52 Hematemesis 7723204 K92.0 A few episodes of bringing up blood (he thinks from the stomach) in Aug and wishes an EGD. No melena. No other red flag ROS. On PRN omeprazole for occasional upper GI ROS. S/p distant treated H.Pylori without check of eradicatio n. Family his tory of cancer of colon 655569364 Z80.0 Father History of polyp of colon 444810012 Z86.010 On prior colons [id number] Donna Segal MD [facility] [address] [place] [address] [address] [place] [address] 07/31/2020 14:46:41 07/31/2020 14:47:09 Viral screening 747757997 Z11.59 [id number] Xavier Curtis III, MD [address] [address] 09/19/2020 12:23:54 09/19/2020 12:48:00 Onychomycosis due to dermatophyte 050753618 B35.1 Patient educated about onychomyco sis and that the process to treat this can take some time. Patient will start on medication as directed and is aware of the side effects. Patient will follow up if no improvemen t after 1 month. If no improvemen t then try oral medication . Patient can call with any concerns. History of myocardial infarction 077705893 I25.2 Patient stated he had a heart attack back in 2016 and had a pain a couple months ago which scared him. Patient hasn't had pain since. Patient would like a referral to cardiology . [id number] Donna Segal MD [facility] [address] [place] [address] [address] [place] [address] 10/07/2020 16:21:41 10/07/2020 16:22:35 Viral screening 687815683 Z11.59 [id number] Disha Callejas MD [address] [address] 08/02/2021 15:02:27 08/02/2021 16:13:54 COVID-19 733175934 U07.1 Estefania was hospitaliz ed from 07/14/21-1 at [facility] for COVID-19 infection and pneumonia. He was treated with remdesivir and ceftriazon e/azithrom ycin. He is feeling much better, but continues to have a slight cough and some fatigue. Encouraged patient to work on rebuilding his stamina and use honey or cough drops to help with his cough. Patient will follow-up as needed. Prediabetes 898136173 R7 3.03 Patient has a history of prediabete s. He would like to see a nutritioni st, referral placed. Benign ess ential hypertension 5638051 I10 Patient has a history of hypertensi on for which he has been taking chlorthali done 12.5mg daily and lisinopril 40mg daily. His blood pressure is currently well controlled . He will continue current medication s which were prescribed today. He will follow-up in 2 months or earlier as needed. [id number] Disha Callejas MD [address] [address] 10/26/2021 10:51:54 10/26/2021 11:39:09 Adult health examination 930132599 Z00.01 Patient should discuss medical decisions with Health Care Proxy. Recommende d screenings included colonoscop y screening age 50, earlier based on family history/ri sk factors; one time screen for hepatitis C if born between 9754-8396 or has risk factors. Reviewed vaccines and current recommenda tions. Basic health topics include aerobic exercise, importance of healthy/ba lanced diet and minimizing caffeine and alcohol. Administra tion of diphtheria, pertussis, and tetanus vaccine 129121995 Z23 Patient is up to date, received TDAP in 2020. Screening for malignant neoplasm of colon 830539781 Z12.11 Patient reports a colonoscop y in September of 2019 [facility]. No records available, but states he has a history of polyps. Will plan for follow-up colonoscop y in 3-5 years. Viral screening 24355406 4 Z11.59 Non-reacti ve screening in 2020. Varicella vaccination 68 500097 Z23 Patient due for shingles vaccinatio n. Prescribed to his pharmacy. Benign ess ential hypertension 4421303 I10 Patient has a history of hypertensi on for which he has been taking chlorthali done 12.5mg daily and lisinopril 40mg daily. His blood pressure is currently well controlled . He will continue current medication s which were prescribed today. He will follow-up in 2 months or earlier as needed. Atrial fibrillation 4943 6004 I48.91 Patient has a history of atrial fibrillati on for which he is on Eliquis 5mg BID. Will continue current medication . Atrial fibrillati on is currently rate controlled with emtoprolol succinate 50mg daily. Prediabetes 602793548 R7 3.03 Patient has a history of prediabete s. Will check blood work today. Nodule of lung 688238570 R91.1 Patient was found to have a mass in his right lung. He is seeing pulmonolog y at [facility] and has had follow-up scans which demonstrat ed no growth of the area. History of partial nephrectomy 669751912 Z90.5 Patient has a history of a partial nephrectom y for a mass on the kidney years ago. He is now having right flank pain which he states as the same as prior to his partial nephrectom y. Will obtain an ultrasound to evaluate the remaining kidney. Hematemesis 1045992 K92. 0 Patient has a history of coughing up blood and hematemesi s (although has not vomited recently). He has had evaluation s of his lungs and is interested in an endoscopy to check his esophagus. Referral placed to GI. [id number] Disha Callejas MD [address] [place] [address] 12/05/2021 07:39:05 12/05/2021 08:06:25 Left lower quadrant pain 525163659 R10.32 He states he has been having some abdominal pain to his left lower quadrant for about 3 days. He has had gas as well. He has had some burning with urination as well. Denies any blood to urine. He denies any diarrhea, constipati on, fever, chills urinary frequency or urgency, blood to stool, fever, chills, severe pain, chest pain, shortness of breath. He states he had a colonoscop y in 2019 that showed diverticul osis. UA in office was normal, will send urine for culture. He has pain to left lower quadrant on palpation in office today. There is no rebound tenderness or guarding noted. Positive bowel sounds to all 4 quadrants. Discussed diverticul itis with patient. Will treat with ciprofloxa in and flagyl as noted. Instructed to go to ER with any fever, chills, worsening symptoms, chest pain, shortness of breath, severe pain. He verbalized understand ing. He will call with any questions, concerns or with no improvemen t in symptoms. Diverticulitis 207155666 K57.92 Patient noted with left lower quadrant on exam in office today. He has been having pain to this area for about 3 days per patient. He states he had colonscopy in 2019 that showed diverticul osis. There is no rebound tenderness or guarding noted. Positive bowel sounds to all 4 quadrants. Discussed diverticul itis with patient. Will treat with ciprofloxa in and flagyl as noted. Instructed to go to ER with any fever, chills, worsening symptoms, chest pain, shortness of breath, severe pain. He verbalized understand ing. He will call with any questions, concerns or with no improvemen t in symptoms. [id number] Monica Ferrara, , RDN, LDN [facility] [address] [place] [address] [address] [place] [address] 12/06/2021 08:04:43 12/06/2021 10:40:31 Prediabetes 036561465 R73.03 Summary of Visit:Gi saavedra is a 51 year old primarily Dutch speaking male referred for prediabete s. Jyoti from interprete r services was present today to assist with medical interpreta tion. Jai states that he has a strong family hx of DM and was diagnosed with prediabete s last week. He attributes recent weight gain and new prediabete s dx to more mindless, stress-rel ated snacking and reduced physical activity.E mphasized the importance of consuming a consistent -carbohydr ate, carbohydra te-control led diet to promote glycemic management . Reviewed the primary dietary sources of carbohydra ras and the importance of emphasizin g fiber-rich carbohydra ras (fruits, vegetables , whole grains) over refined carbohydra ras and added sugars.Ruby ntified strategies to create balanced meals and snacks. Emphasized the role of aerobic exercise in weight, blood glucose, and cholestero l management . Discussed realistic ways for Jai to incorporat e regular, purposeful physical activity. Patient stage of change: preparatio n Weight Goal:Estim ated Kcal Needs: 2242 kcal/day (MSJ for weight loss)Estim ated Protein needs: 118 g protein/da y (1.0 g/kg/day)E stimated Fluid Needs: 2970 ml fluid/day (weight method) Nutrition Diagnosis: - Altered nutrition- related labs related to prediabete s and HLD as evidenced by HbA1C 6.2% and Written Materials Provided:- Plate Method handout w/ food groups/lis ts- What Can I Eat? Dutch handout- Healthy Snack Dutch handout- Healthy Plate Dutch handout Educator Assessed Learning Barriers: language barrier [id number] Disha Callejas MD [facility] [address] [place] [address] 01/04/2022 12:15:26 01/04/2022 12:39:32 Arthritis of left knee [id number] 568780 M13.862 Suspected arthritis along with meniscus wear suspected due to some pain with flexion and stairs. Patient has slight posiitve [place] on left knee. Patient wanted to try home exercises first and given some and explained to him about proper form. Patient will trial this for 2-3 weeks and if no improvemen t will call and send to PT. Patient can start diclofenac as well for his arthritis which should help. Patient will call with any concerns. Health Concerns Section Related Observation LastModified by Organization Robby cornell LastModified Time None Recorded Concern Status LastModified by Organization Details LastModified Time None Recorded Advance Directives Directive None Recorded Payers Encounter Date Sequence Insurance Name Policy Number Policy Girard Covered Member ID Girard Member ID Guarantor Name 08/02/2021 1 [facility]MEDICAID HMO) [id number] Jai Javier [id number] Jai Javier 10/26/2021 1 [facility]MEDICAID H[facility]) [id number] Jai Javier [id number] Jai Javier 12/05/2021 1 [facility] PL[facility] (MEDICAID HMO) [id number] Jai Javier [id number] Jai Javier 12/06/2021 1 [facility] (MEDICAID HMO) [id number] Jai Javier [id number] Jai Javier 01/04/2022 1 [facility] (MEDICAID HMO) [id number] Jai Javier [id number] Jai Javier Notes Date Note Type Note Provider Name and Address Organization Details Recorded Time 08/02/2021 text/html Patient is a 51 year old male who presents today for a hospital follow-up. He was hospitalized from 07/14/21-07/18/21 for COVID. He was hospitalized at [facility]. He got antibiotics (ceftriaxone and azithromycin for pneumonia) and remdesivir while he was hospitalized. He is feeling much better since he got out of the hospital. Disha Callejas MD [address] [place] [address], [phone], [facility] 08/02/2021 15:50:26 10/26/2021 text/html Patient is a 51 year old male that presents in the office today for an annual exam. Patient is a 51 year old male who presents today for an annual physical. Agn reports that he has been having pain in his right kidney area. 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 Disha Callejas MD [address] [place] [address], [phone], [facility] 10/26/2021 11:40:45 12/05/2021 text/html Patient is 51 ye ar old male who presents for abdominal pain. He states he has been having some abdominal pain to his left lower quadrant for about 3 days. He has had gas as well. He has had some burning with urination as well. Denies any blood to urine. He denies any diarrhea, constipation, fever, chills urinary frequency or urgency, blood to stool, fever, chills, severe pain, chest pain, shortness of breath. He states he had a colonoscopy in 2019 that showed diverticulosis. 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 Social Support:Primary Support Person: self, GFLiving Arrangements: lives with GF Previous Diet Education/Training:Pr evious Visit with Dietitian: none Meals and Dining:Meals per day:Snacks per day:Skips meals:Recent dietary changes: eating less latelySpecial diets in the past:Food Allergy or intolerances: none reportedPrimary White Work Cleaner: usually [facility] Food Higher Level Teaching Assistant:bothDining Out frequency: 1x per weekAlcohol Intake: noneSupplements: Diet recall:- Breakfast: sandwich w/ 1 slice ham and 1 slice cheese, 2 eggs, on potato bread- Lunch: chicken with serbian fries OR empanadas OR sometimes mixed veggies with beans in the microwave- Dinner: chicken w/ onions and frozen tamales and salad w/ corn, green beans, onions- Snack: yogurt with walnuts and almonds- snacks a lot during the day - potato chips, cookies, almonds, walnuts,; feels that snacking is a way to cope with anxiety/stress - last year was eating healthier and not munching as much, was eating more almonds/ peanuts/walnuts isntead of chips and cookies - grandpa, mom, father - all had diabetes Physical Activity:Participates in Physical Activity: played basketball for many years, hasn't for the last 2 years - no time; used to play daily - got a treadmill and stationary bike recently Recent Weight Changes: 230-235# ~1 year ago; has had a 25-30# increase x1 year ; eating badly ; now trying to eat less; doesn't like sweets anyway ; I think eating too many carbs is what's affecting me Monica Ferrara, MS, RDN, LDN [address] [place], [phone], [facility] 12/29/2021 12:04:04 01/04/2022 text/html Patient is a 51 y.o. male who presents today for left knee pain for 4 days. Patient stated he woke up with this knee pain. Patient stated he has played basketball most of his life and is aware of arthritis. Patient denies any trauma. Patient stated improved with walking but once he sits starts to hurt. Patient stated hurts in flexion of left knee. Patient denies any fevers, chills, SOB, N/V/D, numbness, tingling or swelling. Disha Callejas MD [address] [place], [address], [facility] 01/04/2022 16:38:41
== END 2024-11-13 07:15 | disposition home or self-care (01) ==
LOC: HO.CT 07:14
PROVIDERS: PCP Internal Medicine; Visit Provider Hospitalist
DX: R04.2 Hemoptysis (principal)
CPT/HCPCS: 71250

== ENCOUNTER → 2024-11-13 07:16 | Outpatient (BNV) | payer MEDICAID, SELFPAY | PROVIDERS: PCP Internal Medicine; Visit Provider Specialist | DX: R04.2 Hemoptysis (principal) | CPT/HCPCS: 71250 ==

== ENCOUNTER 2024-11-24 10:02 | Outpatient (AMB) | payer MEDICAID, SELFPAY ==
--- NOTE | 2024-11-24 10:58 | A.OFFVIS_ITS ---
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 He is a patient Dr. Jennings. He seen for the following urologic conditions - renal cancer Guinean translation provided in office by qualified medical technologist prn Renal cancer Prior right partial nephrectomy 2013 No prior follow-up imaging Performed at 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 Review of Systems Const Denies chills and Denies fever(s) Card Reports no additional complaints and Denies syncope Resp Denies cough GI Denies abdominal pain and Denies heartburn Reports as per HPI and Denies change in libido Neuro Denies syncope Psych Denies change in libido Endo Denies change in libido Physical Exam Const General: cooperative, healthy appearing, comfortable and no acute distress Orientation/consciousness: patient oriented x3 HEENT Face and sinus: Yes normal facial exam Mouth: moist mucous membranes Neck Neck: Yes normal visual inspection, Yes full ROM and Yes trachea midline Chest Chest palpation & inspection: normal inspection of the chest Resp Effort & Inspection: normal respiratory effort, able to speak in complete s entences and no respiratory distress GI Inspection: Yes normal to inspection Back/Spine/Pelvis Cervical Spine: normal cervical lordosis Thoracic/Lumbar Spine: thoracic and lumbar spine normal to inspection Skin General skin exam: no rashes or lesions noted Neuro General: patient oriented x3, gait normal, tone normal and moves all extremities Extrem General: Yes normal to inspection and Yes capillary refill normal Assessment & Plan Assessment & Plan (1) Renal cancer: Code(s): C64.9 - Malignant neoplasm of unspecified kidney, except renal pelvis Category: Medical Plan Renal imaging Orders: Orders CT abdomen wo/w IV con Today C64.9 - Malignant neoplasm of unspecified kidney, except renal pelvis Patient Instructions: This note is constructed using voice recognition software. While every effort has been made to ensure accuracy emery grinder errors may have been included. Imaging studies, laboratory and physical exam results were discussed and reviewed in detail. No major barriers to patient understanding were identified. An opportunity to ask questions regarding the treatment plan was provided. All questions were answered. The patient expressed understanding and agreement with the above treatment plan. The patient is aware they should contact our office by phone for worsening of their current condition or the appearance of new urologic symptoms. Compliance is encouraged with any medications and followup testing that is ordered. It is a privilege to participate in the urologic care of your patient. If you have any questions or concerns regarding treatment for the above conditions, or other urologic issues, please do not hesitate to contact me. The office telephone contact is [phone]. Sincerely, Dr Colton Adan MD, [facility] - Urology Compassionate Specialist Care for the Genitourinary System Coding Level of Care Code New Pt Level 4 (89179) Diagnoses Renal cancer C64.9
--- OUTSIDE RECORDS SUMMARY | 2024-11-24 11:57 | XMS_ITS | Encounter Summary ---
Author Organization [employer] Address [address] [place] [address] Care Team Providers Care Machine Design Teacher Name Role Phone Kathy Hair MD Primary Care Provide r Reason for Visit * Reason Comments Med Refill Encounter Details Date Type Department Care Team (Late Contact Info) Description 07/15/2024 Refill [facility] [address] [place] [phone] Kenan Mays MD [address] [place] [phone] Essential hypertension Social History Tobacco Use Types [...] Description 12/15/2024 10:00 AM EDT Office Visit [facility] [address] [place] [phone] Kathy Hair MD [address] [place] [phone] documented as of this encounter Visit Diagnoses Diagnosis Essential hypertension Unspecified essential hypertension documented in this encounter Care Teams Machine Design Teacher Relationship Specialty Start Date End Date Kathy Hair MD [address] [place] [phone] PCP - General Internal Medicine 09/15/24 documented as of this encounter
--- OUTSIDE RECORDS SUMMARY | 2024-11-24 11:57 | XMS_ITS | Encounter Summary ---
Author Organization [employer] Address [address] [facility] [address] [facility] [address] [place] [address] Care Team Providers Care Osteopathy Doctor Name Role Phone Kathy Hair MD Primary Care Provide r Reason for Visit * Reason Comments Med Refill Encounter Details Date Type Department Care Team (Late Contact Info) Description 04/21/2024 Refill [facility] [address] [place] [phone] Name, MD Wenceslao [address] [place] [phone] Essential hypertension Social History Tobacco Use Types [...] Description 12/15/2024 10:00 AM EDT Office Visit [facility] [address] [place] [phone] Kathy Hair MD [address] [place] [phone] documented as of this encounter Visit Diagnoses Diagnosis Essential hypertension Unspecified essential hypertension documented in this encounter Care Teams Osteopathy Doctor Relationship Specialty Start Date End Date Kathy Hair MD [address] [place] [phone] PCP - General Internal Medicine 09/15/24 documented as of this encounter
--- OUTSIDE RECORDS SUMMARY | 2024-11-24 11:57 | XMS_ITS | Encounter Summary ---
Author Organization [employer] Address [address] [place] [address] Care Team Providers Care Cutter Grinder Name Role Phone Kathy Hair MD Primary Care Provide r Reason for Visit * Reason Comments Med Refill Encounter Details Date Type Department Care Team (Late Contact Info) Description 06/22/2024 Refill [facility] [address] [place] [phone] Name, MD Wenceslao [address] [place] [phone] Social History Tobacco Use Types Packs/Day Years [...] Description 12/15/2024 10:00 AM EDT Office Visit [facility] [address] [place] [phone] Kathy Hair MD [address] [place] [phone] documented as of this encounter Visit Diagnoses Not on filedocumented in this encounter Care Teams Cutter Grinder Relationship Specialty Start Date End Date Kathy Hair MD [address] [place] [phone] PCP - General Internal Medicine 09/15/24 documented as of this encounter
--- OUTSIDE RECORDS SUMMARY | 2024-11-24 11:57 | XMS_ITS | Encounter Summary ---
Author Organization [employer] Address [address] [facility] [address] [place] [address] Care Team Providers Care Production Team Member Name Role Phone Kathy Hair MD Primary Care Provide r Reason for Visit * Reason Onset Date Comments New Patient 06/28/2023 Encounter Details Date Type Department Care Team (Late st Contact Info) Description 06/28/2023 Telephone [facility] [address] [place] [address] [phone] Beny Renteria MD [address] [place], [place] [phone] New Patient Social History Tobacco Use Types [...] been transfer over to wait list for SUIT ATTENDANT. EFFECTIVE SINCE 06/28/2023 documented in this encounter Plan of Treatment Upcoming Encounters Date Type Department Care Team (Late st Contact Info) Description 12/15/2024 10:00 AM EDT Office Visit [facility] [address] [place] [phone] Kathy Hair MD [address] [place], [place] [phone] documented as of this encounter Visit Diagnoses Not on filedocumented in this encounter Care Teams Production Team Member Relationship Specialty Start Date End Date Kathy Hair MD [address] [place], [place] [phone] PCP - General Internal Medicine 09/15/24 documented as of this encounter
--- OUTSIDE RECORDS SUMMARY | 2024-11-24 11:57 | XMS_ITS | Data Portability ---
Author Organization [place] - [facility] Address [address] [place] [address] Care Team Providers Care Oil Recovery Operator Name Role Phone DISHA CALLEJAS Primary Care Provider DISHA CALLEJAS Referring Provider Assessment No assessment recorded. Plan of Treatment Reminders Order Date Submit Date Provider Last Modified By Organization Details Last Modified Time Details Appointments None recorded. Lab urinalysis, dipstick [address] ([facility]), [address], [place], [address], 08:13:50 culture, urine 2021 [facility], [address] [place], [address], 10:17:56 HbA1c (hemoglobin A1c), blood 2021 [email or web address] [facility], [address] [place], [address], 10:40:35 CMP, serum or plasma 2021 [facility], [address] [place], [address], 17:17:13 lipid panel, serum 2021 [facility], [address] [place], [address], 2 17:17:14 Referral gastroenter ologist referral 2021 [email or web address] [place] [address] - Gi, [address] [facility], [address], [place], [address], 08:26:45 nutritionis t/dietitian referral 2020 021 [email or web address] 4 [facility] (Nutrition Services), [address] [place], [address], 15:42:35 Procedures None recorded. Surgeries None recorded. Imaging US, kidney - right kidney 2021 022 [facility] (Central Scheduling), [address] [place], [address], 2 08:54:00 Medication Orders diclofenac 1 % topical gel 2021 022 [facility]/Pharmacy #[id number], [address] [place], [place], [phone], 2 12:33:58 metronidazo le 500 mg tablet [address]/Pharmacy #[id number], [address] [place], [place], [id number], 13:50:46 Cipro 500 mg tablet [address]/Pharmacy #[id number], [address] [place], [place], [id number], 2 13:50:40 Patient Targets Encounter Date Encounter Id Patient Goals Patient Target Last Modified By Organization Details Last Modified Time Goals:1. Promote weight loss of 1# per week.2. Promote BGlu management with HbA1C <5.7%3. Promote lipid panel WNL.4. Promote regular physical activity. Not available 12/29/2021 11:18:47 Patient Instructions Encounter Date Encounter Id Patient Instructions Last Modified By Organization Details Last Modified Time 12/06/2021 [id number] 2 month f/u or sooner if needed [...] Not available 12/06/2021 10:28:42 Reason for Referral Assistant Credit Manager/dietitian Refer ral for Prediabetes Referring Physician: Disha Callejas [facility] Medicine, Encounter Date: 08/02/2021 Fagot Heater Referral for Hematemesis Referring Physician: Disha Callejas [facility] Medicine, Encounter Date: 10/26/2021 Results Created Date [...] Consi stent with Diabe ras Not Available [facility] Laboratory Department [address] [place], [address] 10/26/2021 16:50:52 10/26/1910/26/2021 COMPR EHENS MACIE MET. PANEL sodium 136 mmol/ L 136-14 5 normal Not Available [facility] Laboratory Department [address] [place], [address] 10/26/2021 17:17:12 10/26/19 22 10/26/2021 COMPR EHENS MACIE MET. PANEL potassium 4.0 mmol/ L 3.5-5. 1 normal Not Available [facility] Laboratory Department [address] [place], [address] 10/26/2021 17:17:12 10/26/19 22 10/26/2021 COMPR EHENS MACIE MET. PANEL chloride 100 mmol/ L 98-107 normal Not Available [facility] Laboratory Department [address] [place], [address] 10/26/2021 17:17:12 10/26/19 22 10/26/2021 COMPR EHENS MACIE MET. PANEL carbon dioxide 25.3 mmol/ L 22-29 normal Not Available [facility] Laboratory Department [address] [place], [address] 10/26/2021 17:17:12 10/26/19 22 10/26/2021 COMPR EHENS MACIE MET. PANEL anion gap 15 mmol/ L 10-20 normal Not Available [facility] Laboratory Department [address] [place], [address] 10/26/2021 17:17:12 10/26/19 22 10/26/2021 COMPR EHENS MACIE MET. PANEL blood urea nitrogen 16 mg/dL 6-20 normal Not Available [facility] Laboratory Department [address] [place], [address] 10/26/2021 17:17:12 10/26/19 22 10/26/2021 COMPR EHENS MACIE MET. PANEL creatinine 0.79 mg/dL 0.70-1 .2 normal Not Available [facility] Laboratory Department [address] [place], [address] 10/26/2021 17:17:12 10/26/19 22 10/26/2021 COMPR EHENS [...] under the age of 18 Not Available [facility] Laboratory Department [address] [place] [address], [address] 10/26/2021 17:17:12 10/26/19 22 10/26/2021 COMPR EHENS MACIE MET. PANEL glucose 116 mg/dL 70-106 high Not Available [facility] Laboratory Department [address] [place] [address], [address] 10/26/2021 17:17:12 10/26/19 22 10/26/2021 COMPR EHENS MACIE MET. PANEL calcium 9.4 mg/dL 8.6-10 .3 normal Not Available [facility] Department [address] [place] [address], [address] 10/26/2021 17:17:12 10/26/19 22 10/26/2021 COMPR EHENS MACIE MET. PANEL bilirubin total 0.4 mg/dL 0.2-1. 2 normal Not Available [facility] Department [address] [place] [address], [address] 10/26/2021 17:17:12 10/26/19 22 10/26/2021 COMPR EHENS MACIE MET. PANEL aspartate amino transferase 23 U/L 5-40 normal Not Available [facility] Laboratory Department [address] [place] [address], [address] 10/26/2021 17:17:12 10/26/19 22 10/26/2021 COMPR EHENS MACIE MET. PANEL alanine aminotransfe rase 27 U/L 5-41 normal Not Available [facility] Laboratory Department [address] [place], [address] 10/26/2021 17:17:12 10/26/19 22 10/26/2021 COMPR EHENS MACIE MET. PANEL total protein 7.1 g/dL 6.4-8. 3 normal Not Available [facility] Department [address] [place] [address], [address] 10/26/2021 17:17:12 10/26/19 22 10/26/2021 COMPR EHENS MACIE MET. PANEL albumin level 4.4 g/dL 3.5-5. 2 normal Not Available [facility] Department [address] [place] [address], [address] 10/26/2021 17:17:12 10/26/19 22 10/26/2021 COMPR EHENS MACIE MET. PANEL globulin 2.7 gm/dL 2.0-3. 5 normal Not Available [facility] Department [address] [place], [address] 10/26/2021 17:17:12 10/26/19 22 10/26/2021 COMPR EHENS MACIE MET. PANEL albumin globulin ratio 1.6 % 1.1-2. 5 normal Not Available [facility] Department [address] [place], [address] 10/26/2021 17:17:12 10/26/19 22 10/26/2021 COMPR EHENS MACIE MET. PANEL alkaline phosphatase 60 U/L 40-129 normal Not Available [facility] Laboratory Department [address] [place] [address], [address] 10/26/2021 17:17:12 10/26/19 22 10/26/2021 LIPID PANEL WITH REFLE X triglyceride s w/ reflex LDL 208 mg/dL 30-150 high Refer ence Range s: <150 mg/dl Faby l 150-1 99 mg/dl Borde rline High 200-4 99 mg/dl High >500 mg/dl Very High Not Available [facility] Department [address] [place] [address], [address] 10/26/2021 17:17:13 10/26/19 22 10/26/2021 LIPID PANEL WITH REFLE X cholesterol 148 mg/dL 100-20 0 normal Not Available [facility] Department [address] [place] [address], [address] 10/26/2021 17:17:13 10/26/19 22 10/26/2021 LIPID PANEL [...] mg/dL Very high >190 mg/dL Not Available [facility] Department [address] [place] [address], [address] 10/26/2021 17:17:13 10/26/19 22 10/26/2021 LIPID PANEL WITH REFLE X HDL cholesterol 37.9 mg/dL 40-60 low Major risk facto r for CHD: <40 mg/dL Negat macie risk facto r for CHD: >=60 mg/dL Not Available [facility] Department [address] [place] [address], [address] 10/26/2021 17:17:13 10/26/19 22 10/26/2021 LIPID PANEL WITH REFLE X chol HDL ratio 3.91 Risk CHOL/ HDL CHOL/ HDL Ratio Male Femal e 1/2 AVERA GE 3.43 3.27 AVERA GE 4.97 4.44 2 X AVERA GE 9.55 7.05 3 X AVERA GE 23.39 11.04 Not Available [facility] Department [address] [place] [address], [address] 10/26/2021 17:17:13 12/06/19 22 12/05/2021 URINE CULTU [...] ----- -- PATIE NT: Nancy Wilcox ACCT: [id number] [facility] U: [id number] AGE/S X: 51/M ROOM: RE12/[address]: Aurelia carver : 05/27 BED: DIS: STATU S: DEP CLI TLOC: ----- ----- ----- ----- ----- ----- ----- ----- ----- ----- ----- ----- ----- ----- ----- ----- ----- ----- -- SPEC #: [id number] LUCRECIA: 12/05-U NK STATU S: COMP REQ #: [id number] RECD: 12/05- [address]: Aurelia carver [facility] E: Caleb mullen ENTR: 12/05- 751 OT [...] -- END OF REPOR T Not Available [facility] Laboratory Department [address], [place], [address] 12/07/2021 10:17:56 12/06/19 22 12/05/2021 urina lysis , dipst ick SPECIFIC GRAVITY 1.010 Not Available [facility] ([facility]) [address] [place], [address], 12/05/2021 08:06:56 12/06/19 22 12/05/2021 urina lysis , dipst ick PH 7.0 Not Available [facility] ([facility]) [address] [place], [address], 12/05/2021 08:06:56 12/06/19 22 12/05/2021 urina lysis , dipst ick LEUKOCYTES Neg Not Available [facility] ([facility]) [address] [place], [address], 12/05/2021 08:06:56 12/06/19 22 12/05/2021 urina lysis , dipst ick NITRITE Neg Not Available [facility] ([facility]) [address] [place], [address], 12/05/2021 08:06:56 12/06/19 22 12/05/2021 urina lysis , dipst ick PROTEIN Neg Not Available [facility] ([facility]) [address] [place], [address], 12/05/2021 08:06:56 12/06/19 22 12/05/2021 urina lysis , dipst ick GLUCOSE Neg Not Available [facility] ([facility]) [address] [place], [address], 12/05/2021 08:06:56 12/06/19 22 12/05/2021 urina lysis , dipst ick KETONE Neg Not Available [facility] ([facility]) [address], [place], [address], 12/05/2021 08:06:56 12/06/19 22 12/05/2021 urina lysis , dipst ick UROBILINOGEN Normal Not Available [facility] ([facility]) [address], [place], [address], 12/05/2021 08:06:56 12/06/19 22 12/05/2021 urina lysis , dipst ick BILIRUBIN Neg Not Available [facility] ([facility]) [address] [place], [address], 12/05/2021 08:06:56 12/06/19 22 12/05/2021 urina lysis , dipst ick BLOOD Neg Not Available [facility] ([facility]) [address], [place], [address], 12/05/2021 08:06:56 12/07/19 22 12/06/2021 [facility] [address] [facility] [place] [address] Ultras ound Report Signed Patien t: Sarabjit Castelan MR#: [id number] : 1969 Acct:H [id number] Age/Se x: 51 / M ADM Date: Loc: [facility]AS[facility] VILLATORO Attend ing Dr: Disha lilly MD Orderbrent Bowie kei: Disha lilly Date of Servic e: Proced ure(s) : US renal BI Access ion Number (s): [id number] H cc: Disha lilly EXAM: US renal [...] Transc riptio nist: [email or web address] [address] [place] [address], [address], 12/08/2021 08:15:53 Result Notes None recorded. Problems Name Problem SNOMED Code Status Onset Date Resolution Date Notes Provider Name and Address Organization Details Recorded Time Benign essential hypertensi on 9162965 Active 2019 Not Available [facility] 0 23:48:14 Hematemesi s 6711132 Active 2019 Carlton Hamilton MD [address] [place] [address]. [place], [address] , [facility] 0 17:09:26 COVID-19 463529840 Active 2020 Disha Calljeas MD [address] [facility] [place], [address] , [facility] 15:39:26 Atrial fibrillati on 57522024 Active 2020 Disha Callejas MD [address] [facility] [place], [address] , [facility] 15:46:00 Glaucoma 84556937 Active 2020 Disha Callejas MD [address] [facility] [place], [address] , [facility] 15:46:06 Prediabete s 953222196 Active 2020 Disha Callejas MD [address] [place] [address] [place], [address] , [facility] 15:46:07 Nodule of lung 338104379 Active 2020 Disha Callejas MD [address] [place] [address] [place], [address] , [facility] 15:46:15 History of myocardial infarction 676566505 Active 2020 Disha Callejas MD [address] [place] [address] [place], [address] , [facility] 2 09:04:19 Left ventricula r hypertroph y 29599793 Active 2020 Disha Callejas MD [address] [place] [address] [place], [address] , [facility] 15:46:39 Erectile dysfunctio n 443076940 Active 2020 Disha Callejas MD [address] [facility] [place], [address] , [facility] 15:46:55 History of SARS-CoV-2 1305955139915 18302 Active 2020 [facility], [facility] 2 11:01:47 Myocardial infarction 85520930 Active 2021 Leora Castaneda, RN, BSN [facility], [facility] 2 08:51:03 Problem Notes None recorded. Procedures Surgical History Date Name Laterality Status Provider Name and Address Organization Details Recorded Time 12/07/19 22 Nutrition completed Monica Ferrara, , RDN, LDN [address] [place], [address], [facility] 12/29/2021 11:49:46 10/26/19 22 PHQ-9 Patient Health Questionnaire completed Disha Callejas MD [address] [place] [address], [address], [facility] 10/26/2021 11:40:38 06/16/20 20 PHQ-9 Patient Health Questionnaire completed Disha Callejas MD [address] [place] [address], [address], [facility] 06/16/2020 09:15:13 10/07/19 20 colonoscopy completed Disha Callejas MD [address] [place] [address], [address], [facility] 06/16/2020 08:45:24 partial nephrectomy completed Disha Callejas MD [address] [place] [address], [address], [facility] 04/07/2020 09:27:15 Imaging Results Imaging Date Name Status LastModified by Organiz ation Details LastModified Time 12/06/2021 US, kidney completed [email or web address] [address] [place], [address], 12/08/2021 08:15:53 Procedure Notes None recorded. Medical [...] Last Updated DateTime 187.96 cm 32.6 kg/m2 570426. 46 g 67 /min 97 % 97 % 138 mm[Hg] 92 mm[Hg] Ken Weldon MA [facility] 15:15:44 Date Recorded Systolic blood pressure Diastolic blood pressure Provider Name and Address Organization Details Last Updated DateTime 08/02/2021 132 mm[Hg] 84 mm[Hg] Disha Callejas MD [address] [place] [address], [address], [facility] 08/02/2021 15:47:45 Date Recorded Body height Body mass index (BMI) Body weight Oxygen saturation Oxygen saturation in Arterial blood by Pulse oximetry Heart rate Systolic blood pressure Diastolic blood pressure Systolic blood pressure Diastolic blood pressure Provider Name and Address Organization Details Last Updated DateTime 2 187.96 cm 34 kg/m2 588534. 98 g 95 % 95 % 71 /min 128 mm[Hg] 100 mm[Hg] 130 mm[Hg] 102 mm[Hg] Catherine Ramirez [facility] 2 11:05:16 Date Recorded Body height Body mass index (BMI) Body weight Heart rate Systolic blood pressure Diastolic blood pressure Provider Name and Address Organization Details Last Updated DateTime 2 187.96 cm 33.5 kg/m2 145426. 61 g 64 /min 124 mm[Hg] 84 mm[Hg] Yandy Azizakurt [facility] 2 07:47:48 Date Recorded Body height Body mass index (BMI) Body weight Provider Name and Address Organization Details Last Updated DateTime 12/06/2021 187.96 cm 33.4 kg/m2 713645.02 g Monica Ferrara, MS, RDN, LDN [address] [place], [address], [facility] 12/06/2021 09:26:01 Date Recorded Body height Body mass index (BMI) Body weight Heart rate Oxygen saturation Oxygen saturation in Arterial blood by Pulse oximetry Systolic blood pressure Diastolic blood pressure Provider Name and Address Organization Details Last Updated DateTime 2 187.96 cm 33.7 kg/m2 021416 g 64 /min 98 % 98 % 123 mm[Hg] 82 mm[Hg] Peri Cazares [facility] 2 12:22:10 Social History Question Answer Notes LastModified by Organizat ion Details LastModified Time Tobacco Smoking Status Never Smoker Disha Callejas MD [address] [place], [address], [facility] 04/07/2020 09:18:54 What Is Your Level Of [...] available 04/07/2020 Date Of Tobacco Screen 08/01/2021 Information not available 08/01/2021 Members Of Household 1 Information not available 04/07/2020 Marital Status Informatio n not available 04/07/2020 What Was The Date Of Your Most Recent Tobacco Screening? 10/26/2021 [email or web address] Information not available 10/26/2021 How Many Children Do You Have? 4 Information not available 04/07/2020 What Is Your Relationship Status? [email or web address] Information not available 08/01/2021 Do You Use Any Illicit Or Recreational Drugs? No [email or web address] Information not available 08/01/2021 Sex: Unknown Functional [...] Time zoster recombinant 0 completed AURY Ballesteros [facility] 08/01/2021 15:38:02 COVID-19, mRNA, LNP-S, PF, 30 mcg/0.3 mL dose 1 completed Disha Callejas MD [address] [place] [address], [address], [facility] 10/26/2021 11:31:11 COVID-19, mRNA, LNP-S, PF, 30 mcg/0.3 mL dose 1 completed Disha Callejas MD [address] [place] [address], [address], [facility] 10/26/2021 11:31:11 Influenza, split virus, quadrivalent, PF 8 completed Disha Callejas MD [address] [place] [address] [place], [address], [facility] 10/26/2021 11:31:11 Influenza, split virus, trivalent, preservative 4 completed Disha Callejas MD [address] [place] [address] [place], [address], [facility] 10/26/2021 11:31:11 Influenza, split virus, trivalent, preservative 7 completed Disha Callejas MD [address] [place] [address] [place], [address], [facility] 10/26/2021 11:31:11 Influenza, split virus, quadrivalent, PF 1 completed Disha Callejas MD [address] [place] [address] [place], [address], [facility] 10/26/2021 11:31:11 Influenza, split virus, quadrivalent, PF 0 completed Disha Callejas MD [address] [place] [address] [place], [address], [facility] 10/26/2021 11:31:11 Influenza, split virus, trivalent, preservative 1 completed Disha Callejas MD [address] [place] [address] [place], [address], [facility] 10/26/2021 11:31:11 pneumococcal polysaccharide PPV23 1 completed Disha Callejas MD [address] [place] [address] [place], [address], [facility] 10/26/2021 11:31:11 Influenza, split virus, trivalent, preservative 5 completed Disha Callejas MD [address] [place] [address] [place], [address], [facility] 10/26/2021 11:31:11 Influenza, split virus, trivalent, preservative 2 completed Disha Callejas MD [address] [place] [address], [address], [facility] 10/26/2021 11:31:11 Influenza, split virus, trivalent, preservative 6 completed Disha Callejas MD [address] [place] [address], [address], [facility] 10/26/2021 11:31:11 Influenza, split virus, trivalent, preservative 3 completed Disha Callejas MD [address] [place] [address], [address], [facility] 10/26/2021 11:31:11 Td (adult), 2 Lf tetanus toxoid, preservative free, adsorbed 1 completed Disha Callejas MD [address] [place] [address], [address], [facility] 10/26/2021 11:31:11 Tdap 0 completed Yandy Irizarry CMA [facility] 06/16/2020 09:19:12 Past Encounters Encounter ID Performer Location Encounter Start Date Encounter Closed Date Diagnosis/Indication Diagnosis SNOMED-CT Code Diagnosis ICD10 Code Diagnosis Note [id number] Disha Callejas MD [address] [address] 04/07/2020 09:07:08 04/07/2020 09:33:17 Benign essential hypertension 7210844 I10 Patient has a history of hypertensi on for which he has been taking amlodipine 5mg and lisinopril 40mg daily. His blood pressure is currently well controlled . He will continue current medication s which were prescribed today. He will follow-up in 2 months for a physical. Glaucoma 08644630 H40.9 Patient has a history of glaucoma for which he uses eye drops. He has no refills at this time, but has an appointmen t scheduled with an eye doctor next month. Gastroesop hageal reflux disease 325100450 K21.9 Patient has a history of GERD for which he has been taking omeprazole 20mg daily. He notes that while he was in skilled nursing, he got a colonoscop y and was supposed to get an endoscopy as he intermitte ntly has been spitting up blood. GI referral placed and omeprazole refilled. History of malignant neoplasm of kidney 590536625 Z85.528 Patient has a history of a renal tumor which was removed in 2013. He has not had significan t follow-up since then. Recommende d nephrology evaluation . Referral placed. [id number] Disha Callejas MD [facility] [address] [place] [address] 06/16/2020 08:29:53 06/16/2020 09:11:41 Adult health examination 189239093 Z00.00 Patient should discuss medical decisions with Health Care Proxy. Recommende d screenings included colonoscop y screening age 50, earlier based on family history/ri sk factors; one time screen for hepatitis C if born between 1117-6456 or has risk factors. Reviewed vaccines and current recommenda tions. Basic health topics include aerobic exercise, importance of healthy/ba lanced diet and minimizing caffeine and alcohol. Administra tion of diphtheria, pertussis, and tetanus vaccine 596997086 Z23 Patient due for Tdap vaccinatio n. Administer ed today. Screening for malignant neoplasm of colon 308385516 Z12.11 Patient reports a colonoscop y in September of 2019 while he was in skilled nursing. No records available, but states he has a history of polyps. Will plan for follow-up colonoscop y in 3-5 years. Varicella vaccination 68 471333 Z23 Patient due for shingles vaccinatio n. Prescribed to his pharmacy. Benign ess ential hypertension 7153989 I10 Patient has a history of hypertensi on for which he has been taking amlodipine 5mg and lisinopril 40mg daily. His blood pressure is currently well controlled . He will continue current medication s which were prescribed today. He will follow-up in 2 months for a physical. [facility] of sexually transmitted infection 121419777 Z20.2 Patient was recently in skilled nursing and would like to be tested for STDs. Blood and urine obtained for testing today. Hyperlipid emia screening 354260711 Z13.220 Patient due for hyperlipid emia screening. Lipid panel obtained today. Large prostate 836268550 N40.0 Patient has a slightly enlarged prostate on examinatio n. Will check PSA today. Impotence of organic origin 258409051 N52.9 Patient has been struggling with getting and maintainin g an erection. Discussed risks and benefits of medication . Prescribed sildenafil 50mg daily as needed. Patient will follow-up if not improving. Hemorrhoids 84661405 K64 .9 Patient has internal hemorrhoid s which are causing him pressure and discomfort . Prescribed hydrocorti sone cream to use topically and help his symptoms. [id number] Carlton Hamilton MD [facility] [address] [place] [address] [address] [place] [address] 07/18/2020 16:45:30 07/18/2020 17:23:52 Hematemesis [id number] K92.0 A few episodes of bringing up blood (he thinks from the stomach) in Aug and wishes an EGD. No melena. No other red flag ROS. On PRN omeprazole for occasional upper GI ROS. S/p distant treated H.Pylori without check of eradicatio n. Family his tory of cancer of colon [id number] Z80.0 Father History of polyp of colon [id number] Z86.010 On prior colons [id number] Donna Segal MD [facility] [address] [place] [address] [address] [place] [address] 07/31/2020 14:46:41 07/31/2020 14:47:09 Viral screening [id number] Z11.59 [id number] Xavier Curtis III, MD [address] [address] 09/19/2020 12:23:54 09/19/2020 12:48:00 Onychomycosis due to dermatophyte [id number] B35.1 Patient educated about onychomyco sis and that the process to treat this can take some time. Patient will start on medication as directed and is aware of the side effects. Patient will follow up if no improvemen t after 1 month. If no improvemen t then try oral medication . Patient can call with any concerns. History of myocardial infarction [id number] I25.2 Patient stated he had a heart attack back in 2016 and had a pain a couple months ago which scared him. Patient hasn't had pain since. Patient would like a referral to cardiology . [id number] Donna Segal MD [facility] [address] [place] [address] [address] [place] [address] 10/07/2020 16:21:41 10/07/2020 16:22:35 Viral screening [id number] Z11.59 [id number] Disha Callejas MD [address] [address] 08/02/2021 15:02:27 08/02/2021 16:13:54 COVID-19 [id number] U07.1 Estefania was hospitaliz ed from 07/14/21-1 at [facility] for COVID-19 infection and pneumonia. He was treated with remdesivir and ceftriazon e/azithrom ycin. He is feeling much better, but continues to have a slight cough and some fatigue. Encouraged patient to work on rebuilding his stamina and use honey or cough drops to help with his cough. Patient will follow-up as needed. Prediabetes [id number] R7 3.03 Patient has a history of prediabete s. He would like to see a nutritioni st, referral placed. Benign ess ential hypertension 4248212 I10 Patient has a history of hypertensi on for which he has been taking chlorthali done 12.5mg daily and lisinopril 40mg daily. His blood pressure is currently well controlled . He will continue current medication s which were prescribed today. He will follow-up in 2 months or earlier as needed. [id number] Disha Callejas MD [address] [address] 10/26/2021 10:51:54 10/26/2021 11:39:09 Adult health examination 499431159 Z00.01 Patient should discuss medical decisions with Health Care Proxy. Recommende d screenings included colonoscop y screening age 50, earlier based on family history/ri sk factors; one time screen for hepatitis C if born between 0794-1470 or has risk factors. Reviewed vaccines and current recommenda tions. Basic health topics include aerobic exercise, importance of healthy/ba lanced diet and minimizing caffeine and alcohol. Administra tion of diphtheria, pertussis, and tetanus vaccine [id number] Z23 Patient is up to date, received TDAP in 2020. Screening for malignant neoplasm of colon 248408908 Z12.11 Patient reports a colonoscop y in September of 2019 while he was in skilled nursing. No records available, but states he has a history of polyps. Will plan for follow-up colonoscop y in 3-5 years. Viral screening 04417720 4 Z11.59 Non-reacti ve screening in 2020. Varicella vaccination 68 314675 Z23 Patient due for shingles vaccinatio n. Prescribed to his pharmacy. Benign ess ential hypertension 2577599 I10 Patient has a history of hypertensi [...] controlled with emtoprolol succinate 50mg daily. Prediabetes 979560095 R7 3.03 Patient has a history of prediabete s. Will check blood work today. Nodule of lung 193129857 R91.1 Patient was found to have a mass in his right lung. He is seeing pulmonolog y at [facility] and has had follow-up scans which demonstrat ed no growth of the area. History of partial nephrectomy 386939381 Z90.5 Patient has a history of a partial nephrectom y for a mass on the kidney years ago. He is now having right flank pain which he states as the same as prior to his partial nephrectom y. Will obtain an ultrasound to evaluate the remaining kidney. Hematemesis [id number] K92. 0 Patient has a history of coughing up blood and hematemesi s (although has not vomited recently). He has had evaluation s of his lungs and is interested in an endoscopy to check his esophagus. Referral placed to GI. [id number] Disha Callejas MD [address] [place] [address] 12/05/2021 07:39:05 12/05/2021 08:06:25 Left lower quadrant pain 648976502 R10.32 He states he has been having [...] with no improvemen t in symptoms. Diverticulitis 780511982 K57.92 Patient noted with left lower quadrant [...] or with no improvemen t in symptoms. [id number] Monica Ferrara, , RDN, LDN [facility] [address] [place] [address] [address] [place] [address] 12/06/2021 08:04:43 12/06/2021 10:40:31 Prediabetes 824363984 R73.03 Summary of Visit:Gi saavedra is a 51 year old primarily Swedish speaking male referred for prediabete s. Jyoti [...] food groups/lis ts- What Can I Eat? Swedish handout- Healthy Snack Swedish handout- Healthy Plate Swedish handout Educator Assessed Learning Barriers: language barrier [id number] Disha Callejas MD [facility] [address] [place] [address] 01/04/2022 12:15:26 01/04/2022 12:39:32 Arthritis of left knee [id number] 136021 M13.862 Suspected arthritis along with meniscus wear [...] Girard Member ID Guarantor Name 08/02/2021 1 [facility]MEDICAID HMO) [id number] Jai Javier [id number] Jai Javier 10/26/2021 1 [facility] H[facility] [id number] Jai Javier [id number] Jai Javier 12/05/2021 1 [facility] HEALTH NET PLAN (MEDICAID HMO) [id number] Jai Javier [id number] Jai Javier 12/06/2021 1 [facility]MEDICAID HMO) [id number] Jai Javier [id number] Jai Javier 01/04/2022 1 [facility]MEDICAID HMO) [id number] Jai Javier [id number] Jai Javier Notes Date Note Type Note Provider Name and Address Organization Details Recorded Time 08/02/2021 text/html Patient is a 51 year old male who presents today for a hospital follow-up. He was hospitalized from 07/14/21-07/18/21 for COVID. He was hospitalized at [facility]. He got antibiotics (ceftriaxone and azithromycin for pneumonia) and remdesivir while he was hospitalized. He is feeling much better since he got out of the hospital. Disha Callejas MD [address] [place] [address], [phone], [facility] 08/02/2021 15:50:26 10/26/2021 text/html Patient is a [...] prior to having surgery. Disha Callejas MD [address] [place] [address], [phone], [facility] 10/26/2021 11:40:45 12/05/2021 text/html Patient is 51 [...] 2019 that showed diverticulosis. 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 Social Support:Primary Support Person: self, GFLiving Arrangements: lives with GF Previous Diet Education/Training:Pr evious Visit with Dietitian: none Meals and Dining:Meals per day:Snacks per day:Skips meals:Recent dietary changes: eating less latelySpecial diets in the past:Food Allergy or intolerances: none reportedPrimary Systems Analyst Developer: usually Milagrosrinorth [facility] Food Invertebrate Paleontologist:bothDining Out frequency: 1x per weekAlcohol Intake: noneSupplements: Diet recall:- Breakfast: sandwich w/ 1 slice ham and 1 slice cheese, 2 eggs, on potato bread- Lunch: chicken with sinhala fries OR empanadas OR sometimes mixed veggies [...] me Monica Ferrara, MS, RDN, LDN [address] [place], [phone], [facility] 12/29/2021 12:04:04 01/04/2022 text/html Patient is a [...] tingling or swelling. Disha Callejas MD [address] [place], [phone], [facility] 01/04/2022 16:38:41
--- OUTSIDE RECORDS SUMMARY | 2024-11-24 11:57 | XMS_ITS | Clinical Summary ---
Author Organization [employer] Address [address] [place] [address] Care Team Providers Care Metaphysics Teacher Name Role Phone Kathy Hair MD [...] 09/17/20 Active Blood Glucose Monitoring Suppl (FreeStyle [place] Lite) w/Device kitIndications:N ewly diagnosed diabetes (CMS/HCC) [...] History of renal carcinoma 10/02/2023 History of AR (myocardial infarction) 10/02/2023 Encounters Date Type Department Care Team Description 11/13/2024 Orders Only [facility] External Provider, [facility] 09/17/2024 Telephone [facility] [address] [place] [place] [phone] Nicol Velázquez, RN Results 09/17/2024 Orders Only [address] [address] Kathy Hair MD Newly diagnosed diabetes (CMS/HCC) (Primary Dx) 09/15/2024 10:15 AM EST Office Visit [address] [address] Kathy Hair MD Erectile dysfunction, unspecified erectile dysfunction type (Primary Dx); Hemoptysis; Family history of colon cancer; History of renal carcinoma; Hypertension, unspecified type; History of atrial fibrillation; Glaucoma, unspecified glaucoma type, unspecified laterality 09/15/2024 Travel 09/04/2024 Patient Outreach [address] [address] Kathy Hair MD Pre-visit Planning (SDOH screening [...] your housing situation today? I have kaye suresh 09/04/[address] you li [...] Description 12/15/2024 10:00 AM EDT Office Visit [facility] [address] [place] [address] Kathy Hair MD [address] [place] [address] Health Maintenance Due Date Last Done Comments [...] Procedure Name Priority Date/Time Associated Diagnosis Comments CT CHEST WO CONTRAST Routine 11/13/2024 8:54 AM EST PSA, TOTAL WITH REFLEX TO PSA, FREE [...] carcinoma from Last 3 Months Results * CT Chest w/o Contrast (11/13/2024 8:54 AM EST) Anatomical Region Laterality Modality Body, Chest Computed Tomogra phy 11/13/2024 8:54 AM EST Narrative 11/13/2024 8:55 AM EST ? [facility] ?[address] ?[place] [address] ? CT Scan Report ? Signed with Addenda ? Patient: Javier,Jai ?MR#: [id number] ?? [id number] ? : 1970 ?Acct:[id number] ? Age/Sex: 54 / M ?ADM Date: 11/13/24 ? Loc: HO.CT ? Attending Dr: Terrence Chris MD ? Ordering Physician: Terrence Chris MD ?? Date of Service: 11/13/24 ?? Procedure(s): CT chest wo IV con ?? Accession Number(s): [id number] ? cc: Kathy Hair MD; Terrence Chris MD ? Report Number: ?? [id number]: Total DLP = ??231.00 mGy-cm ?ADDENDUM ?? This document has been electronically signed by: John Yarbrough MD on ?? 11/13/2024 08:54:16 ? ADDENDUM: ?? Receipt of this report by the clinical staff was confirmed with Yarely ?? SAMEER Vernon on Nov 13, 2024 10:14:00 EST. ? This document has been electronically signed by: Laurel Escamilla on ?? 11/13/2024 10:14:41 ? Addendum Dictated By: ?John Yarbrough MD ? Addendum Signed By: ? <Electronically signed by John Yarbrough MD in OV> ?11/13/24 1015 ?? Addendum Cosigned By: ? DD/ ? TD/TT: 11/13/24 ? CLINICAL HISTORY: R04.2 - Hemoptysis ? CT chest without contrast ? Comparison: None ? Findings: ?? The heart is normal size. ?? The visualized thyroid and mediastinum are unremarkable. ? There is abnormal appearance of posterior right ribs with overlying ?? pleural thickening possibly related to previous trauma or surgery. ?? There is a focal pleural-based right lower lobe 2.7 x 1.5 cm lesion ?? questionable vascular structures extending to and from the area. ?? Differential considerations would include vascular malformation, rounded ?? atelectasis, or neoplasm. ?? Comparison with the prior studies, if available, would be of value. If ?? not, appropriate further evaluation possibly beginning with PET-CT, ?? recommended. ? The upper abdomen is unremarkable. ?? No acute fractures. ? IMPRESSION: ?? 1. Possible posttraumatic or iatrogenic findings in right hemithorax. ?? Comparison with any prior cross-sectional imaging, if available, to assess ?? for stability, would be of value. ?? 2. Overlying focal consolidation, differential considerations noted. ?? Comparison with prior studies or clinically appropriate follow-up ?? recommended. ? This document has been electronically signed by: John Yarbrough MD on ?? 11/13/2024 08:54:16 ? Dictated By: ?John Yarbrough MD ? Signed By: ?<Electronically signed by John Yarbrough MD in OV> ?11/13/24854 ? DD/ 3 ? TD/TT: 11/13/24 0854 ? Open Hearth Helper: ? Procedure Note Briana, Deann - 11/13/[address] [address] [address] Scan Report Signed with Razia Patient: Jerrell Herrera#: [id number] : 1970Acct:[id number] Age/Sex: 54 / MADM Date: 11/13/24 Loc: HO.CT Attending Dr: Terrence Chris MD Ordering Physician: Terrence Chris MD Date of Service: 11/13/24 Procedure(s): CT chest wo IV con Accession Number(s): [id number] cc: Kathy Hair MD; Terrence Chris MD Report Number: [id number]: Total DLP = 231.00 mGy-cm ADDENDUM This document has been electronically signed by: John Yarbrough MD on 11/13/2024 08:54:16 ADDENDUM: Receipt of this report by the clinical staff was confirmed with SAMEER Arzola on Nov 13, 2024 10:14:00 EST. This document has been electronically signed by: Laurel Escamilla on 11/13/2024 10:14:41 Addendum Dictated By: John Yarbrough MD Addendum Signed By: <Electronically signed by John Yarbrough MD in OV> 11/13/24 1015 Addendum Cosigned By: DD/ TD/TT: 11/13/24 CLINICAL HISTORY: R04.2 - Hemoptysis CT chest without contrast Comparison: None Findings: The heart is normal size. The visualized thyroid and mediastinum are unremarkable. There is abnormal appearance of posterior right ribs with overlying pleural thickening possibly related to previous trauma or surgery. There is a focal pleural-based right lower lobe 2.7 x 1.5 cm lesion questionable vascular structures extending to and from the area. Differential considerations would include vascular malformation, rounded atelectasis, or neoplasm. Comparison with the prior studies, if available, would be of value. If not, appropriate further evaluation possibly beginning with PET-CT, recommended. The upper abdomen is unremarkable. No acute fractures. IMPRESSION: 1. Possible posttraumatic or iatrogenic findings in right hemithorax. Comparison with any prior cross-sectional imaging, if available, to assess for stability, would be of value. 2. Overlying focal consolidation, differential considerations noted. Comparison with prior studies or clinically appropriate follow-up recommended. This document has been electronically signed by: John Yarbrough MD on 11/13/2024 08:54:16 Dictated By: John Yarbrough MD Signed By: <Electronically signed by John Yarbrough MD in OV> 11/13/24 0855 DD/ 0854 TD/TT: 11/13/24 0854 Open Hearth Helper: [facility] External Provider IMG CT PROCEDURES Edited Result - Final * Vitamin D, 25-Hydroxy, Total, Immunoassay (09/15/2024 10:59 AM EST) Vitamin D 25-OH Total 37.3 >30 ng/mL [facility] Comment:Health Based Referen ce Values*< 20 ng/mL Sflklpwol71-07 ng/mL Insufficient> 30 ng/mL Sufficient*Velasquez AGUAYO. N [...] BLOOD ORDERABLES Final Result Performing Organization Address [facility] Co de Phone Number [facility] [address] [place] [phone] * TSH with Reflex to Free T4 (09/15/2024 10:59 AM EST) TSH reflex Free T4 1.81 0.32 - 4.0 uIU/mL [facility] Blood Venous blood specimen / Unknown 09/15/2024 10:59 AM EST 09/15/2024 1:13 PM EST Kathy Jennings MD LAB BLOOD ORDERABLES Final Result Performing Organization Address [facility] Number [facility] [address] [place] [phone] * PSA, Total With Reflex to PSA, Free (09/15/2024 10:59 AM EST) PSA,Total (Free>4and<10) 0.47 0.00 - 4.00 ng/mL [facility] Comment:A Free PSA was not [...] BLOOD ORDERABLES Final Result Performing Organization Address [facility]/State/ZIP Co de Phone Number [facility] [address] [place] [address] [phone] * CBC auto differential (09/15/2024 10:59 AM EST) White Blood Count 6.1 4.8 - 10.8 X10*3/uL [facility] Red Blood Count 5.04 4.60 - 5.80 X10*6/uL [facility] Hemoglobin 15.0 14.0 - 18.0 g/dl [facility] Hematocrit 43.5 42.0 - 52.0 % [facility] Mean Corpuscular Volume 86.3 80.0 - 98.0 fL [facility] Mean Corpuscular Hemoglobin 29.8 27.0 - 33.0 pg [facility] Mean Corpuscular HGB Conc 34.5 31.0 - 36.0 g/dl [facility] Red Cell Distribution Width 13.4 11.0 - 16.0 % [facility] Platelet Count 294 160 - 400 X10*3/uL [facility] Mean Platelet Volume 11.0 9.4 - 12.4 fL [facility] Neutrophils Percent Auto 58.7 45 - 73 % [facility] Imm Gran Pct Auto 0.2 0.0 - 0.4 % [facility] Lymphocytes Percent Auto 27.2 20 - 40 % [facility] Monocytes Percent Auto 10.8 2 - 11 % [facility] Eosinophils Percent Auto 1.8 0 - 4 % [facility] Basophils Percent Auto 1.3 0 - 2 % [facility] NRBC Pct Auto 0.0 0.0 - 0.2 /100WBC [facility] Neutrophils Absolute Auto 3.6 2.0 - 8.3 x10*3/uL [facility] Imm Gran Abs Auto 0.01 0.00 - 0.03 X10*3/uL [facility] Lymphocytes Absolute Auto 1.7 1.2 - 4.9 X10*3/uL [facility] Monocytes Absolute Auto 0.7 0.1 - 1.2 X10*3/uL [facility] Eosinophils Absolute Auto 0.1 0.0 - 0.4 X10*3/uL [facility] Basophils Absolute Auto 0.1 0.0 - 0.2 X10*3/uL [facility] NRBC Abs Auto 0.000 0.0 - 0.012 X10*3/uL [facility] Blood Venous blood specimen / Unknown 09/15/2024 10:59 AM EST 09/15/2024 1:13 PM EST Kathy Jennings MD LAB BLOOD ORDERABLES Final Result Performing Organization Address [facility]/ZIP Co de Phone Number [facility] [address] [place] [phone] * Hepatitis C Antibody with Reflex to HCV, RNA, Quantitative, Real-Time PCR (09/15/2024 10:59 AM EST) Hepatitis C Antibody Nonreactive Nonreactive [facility] Comment:Antibodies to HCV no t detected; does not exclude early acuteHCV infection. Blood Venous blood specimen / Unknown 09/15/2024 10:59 AM EST 09/15/2024 1:13 PM EST us Kathy Jennings MD LAB BLOOD ORDERABLES Final Result Performing Organization Address [facility] Co de Phone Number [facility] [address] [place] [phone] * HIV-1/2 Antigen and Antibodies, Fourth Generation, with Reflexes (09/15/2024 10:59 AM EST) HIV AB/AG Nonreactive Nonreactive [facility] Comment:HIV-1 p24 Ag and/or HIV-1/HIV-2 Ab not detected.A test result that is nonreactive does not exclude thepossibility of exposure to or infection with HIV-1 and/orHIV-2. Nonreactive results in this assay for individualswith prior exposure to HIV-1 and/or HIV-2 may be due toantigen and antibody levels that are below the limit ofdetection of this assay.The [employer] HIV Ag/Ab Combo assay result andsupplemental assay results should be interpreted inconjunction with the patient's clinical presentation,history and other laboratory results. If the results areinconsistent with clinical evidence, additional testing issuggested to confirm the result. Blood Venous blood specimen / Unknown 09/15/2024 10:59 AM EST 09/15/2024 1:13 PM EST us Kathy Jennings MD LAB BLOOD ORDERABLES Final Result Performing Organization Address [facility]/ZIP Co de Phone Number [facility] [address] [place] [phone] * (ABNORMAL) Hemoglobin A1c (09/15/2024 10:59 AM EST) Hemoglobin A1c 6.5(H) <6.0 % [facility] Comment:Hemoglobin A1C Refer ence Range Adults: 4.8 - 6.0 % Non diabetic: < 6.0 % Goal: < 7.0 %Additional Action Suggested: > 8.0 %Note: Hemoglobin A1c results are invalid for patients with abnormal amounts of HbF. Blood transfusions may impact the HbA1c concentration in the patient sample. Estimated Average Glucose 140 mg/dL [facility] Comment:eAG = Estimated ave rage glucose which is %A1C expressed asaverage glucose, using the formula of the M1N-JwdkugrRclehml Glucose study (ADAG), Diabetes Care, Vol.31,#8,Apr. 2007 Blood Venous blood specimen / Unknown 09/15/2024 10:59 AM EST 09/15/2024 1:13 PM EST Kathy Jennings MD LAB BLOOD ORDERABLES Final Result Performing Organization Address City/[facility]/ZIP Co de Phone Number [facility] [address] [place] [phone] * (ABNORMAL) Lipid Panel, Standard (09/15/2024 10:59 AM EST) Triglycerides 134 <150 mg/dL [facility] Comment:Desirable Triglyceri de: less than 150 mg/dLBorderline High Triglyceride 150-199 mg/dLHigh Triglyceride: 200-499 mg/dLVery High Triglyceride: greater than or equal to 5OO mg/dL Cholesterol 180 <200 mg/dL [facility] Comment:Desirable Cholestero l: less than 200 mg/dLBorderline High Cholesterol: 200-239 mg/dLHigh Cholesterol: greater than 239 mg/dL LDL Cholesterol Calculated 119(H) <100 mg/dL [facility] Comment:Desirable LDL: less than 100 mg/dLNear Optimal/Above Optimal LDL: 110- 129 mg/dLBorderline High LDL: 130-159 mg/dLHigh LDL: 160-189 mg/dLVery High LDL: greater than or equal to 190 mg/dL HDL Cholesterol 35(L) >40 mg/dL [facility] Comment:Desirable HDL: great er than 40 mg/dL Note: This HDL assay may give artificially low results in patients with liver disease. Blood Venous blood specimen / Unknown 09/15/2024 10:59 AM EST 09/15/2024 1:13 PM EST us Kathy Jennings MD LAB BLOOD ORDERABLES Final Result [facility] [address] [place] [phone] * (ABNORMAL) Comprehensive Metabolic Panel (09/15/2024 10:59 AM EST) Sodium 140 135 - 145 mmol/L [facility] Potassium 3.4 3.3 - 5.1 mmol/L [facility] Chloride 102 96 - 108 mmol/L [facility] Carbon Dioxide 31(H) 22 - 29 mmol/L [facility] Anion Gap 10(L) 12 - 20 [facility] Urea Nitrogen (BUN) 20(H) 9 - 16 mg/dL [facility] Creatinine, Serum 0.87 0.5 - 1.4 mg/dL [facility] Estimated Glomerular Filt Rate >60 [facility] Comment:Chronic Kidney Disea se: Estimated GFR < 60 mL/min/1.70j1Mhtsoe Kidney Disease: Estimated GFR < 15 mL/min/1.73m2 Glucose 119(H) 60 - 115 mg/dL [facility] Calcium 9.3 8.4 - 10.2 mg/dL [facility] Bilirubin, Total 0.6 0.0 - 1.0 mg/dL [facility] Aspartate Amino Transferase 27 5 - 37 U/L [facility] Alanine Aminotransferase 26 0 - 40 U/L [facility] Total Protein 8.0 6.5 - 8.0 g/dL [facility] Albumin Level 4.1 3.5 - 5.0 g/dL [facility] Alkaline Phosphatase 59 39 - 117 U/L [facility] Blood Venous blood specimen / Unknown 09/15/2024 10:59 AM EST 09/15/2024 1:13 PM EST Kathy Jennings MD LAB BLOOD ORDERABLES Final Result Performing Organization Address City/State/[facility] Co de Phone Number [facility] [address] [place] [phone] from Last 3 Months Insurance [facility] C3 Care Teams Metaphysics Teacher Relationship Specialty Start Date End Date Kathy Hair MD [address] [place] [phone] PCP - General Internal Medicine 09/15/24
--- OUTSIDE RECORDS SUMMARY | 2024-11-24 11:57 | XMS_ITS | Clinical Summary ---
Author Organization [facility] Address [address] [place] [address] Care Team Providers Care Sales Representative [employer] Name Role Phone Disha Callejas MD Primary Care Provider Allergies No known active allergies Medications latanoprost [...] 75+ series) 2045 Procedures * Due to [place] state law, this organization might not be sharing negative HIV tests. Procedure Name Priority Date/Time Associated Diagnosis Comments COMPREHENSIVE METABOLIC PANEL Routine 07/19/2021 2:56 AM EDT from Last 3 Months or Most Recently Relevant to Health Maintenance Results * Due to [place] state law, this organization might not be sharing negative HIV tests. * (ABNORMAL) Comprehensive Metabolic Panel (07/19/2021 2:56 AM EDT) NA 136 135 - 145 mmol/L 07/19/2021 3:39 AM EDT [facility] K 3.9 3.5 - 5.3 mmol/L 07/19/2021 3:39 AM EDT [facility] Cl 103 97 - 110 mmol/L 07/19/2021 3:39 AM EDT [facility] CO2 25 24 - 32 mmol/L 07/19/2021 3:39 AM EDT [facility] Anion Gap 8 5 - 15 07/19/2021 3:39 AM EDT [facility] Glucose 138(H) 70 - 99 mg/dL 07/19/2021 3:39 AM EDT [facility] Creatinine 0.99 0.60 - 1.30 mg/dL 07/19/2021 3:39 AM EDT [facility] eGFR Non- 88(L) >=90 mL/min/BS A 07/19/2021 3:39 AM EDT [facility] eGFR >90 >=90 mL/min/BS A 07/19/2021 3:39 AM EDT [facility] Comment: Units = mL/min/1.73 [...] - 10.7 mg/dL 07/19/2021 3:39 AM EDT [facility] Total Protein 7.3 6.0 - 8.0 g/dL 07/19/2021 3:39 AM EDT [facility] Albumin 3.5 3.5 - 4.8 g/dL 07/19/2021 3:39 AM EDT [facility] Bilirubin, Total 0.2(L) 0.3 - 1.2 mg/dL 07/19/2021 3:39 AM EDT [facility] Alkaline Phosphatase 46 30 - 115 U/L 07/19/2021 3:39 AM EDT [facility] AST 13 10 - 40 U/L 07/19/2021 3:39 AM EDT [facility] ALT 16 10 - 40 U/L 07/19/2021 3:39 AM EDT [facility] BUN 29(H) 7 - 23 mg/dL 07/19/2021 3:39 AM EDT [facility] Blood Structure of peripheral vein / Unknown Venipuncture / Unknown 07/19/2021 2:56 AM EDT 07/19/2021 3:09 AM EDT [facility] BLOOD ORDERABLES Final Result [facility] [address] [place] [address], from Last 3 Months or Most Recently Relevant to Health Maintenance Insurance [employer] Advance Directives * Full Code (Latest Code Status on File) Date Activated Date Inactivated Comments 07/15/2021 3:20 AM 07/19/2021 5:11 PM Care Teams Sales Representative [employer] Relationship Specialty Start Date End Date Disha Callejas MD PCP - General Family Medicine 04/27/20
--- OUTSIDE RECORDS SUMMARY | 2024-11-24 11:57 | XMS_ITS | Encounter Summary ---
Author Organization [employer] Address [address] [place] [address] Care Team Providers Care Chief Operations Officer Name Role Phone Kathy Hair MD Primary Care Provide r Reason for Visit * Reason Comments Med Refill Encounter Details Date Type Department Care Team (Late Contact Info) Description 07/15/2024 Refill [facility] [address] [place] [phone] Kenan Mays MD [address] [place] [phone] Essential hypertension Social History Tobacco Use Types [...] 10:00 AM EDT Office Visit [facility] [address] [place] [phone] Kathy Hair MD [address] [place] [phone] documented as of this encounter Visit Diagnoses Diagnosis Essential hypertension Unspecified essential hypertension documented in this encounter Care Teams Chief Operations Officer Relationship Specialty Start Date End Date Kathy Hair MD [address] [place] [phone] PCP - General Internal Medicine 09/15/24 documented as of this encounter
--- OUTSIDE RECORDS SUMMARY | 2024-11-24 11:57 | XMS_ITS | Encounter Summary ---
Author Organization [employer] Address [address] [place] [address] Care Team Providers Care Tobacco Drying Machine Operator Name Role Phone Kathy Hair MD Primary Care Provide r Encounter Details Date Type Department Care Team (Late st Contact Info) Description 11/13/2024 Orders Only [facility] External Provider, [facility] Social History Tobacco Use Types Packs/Day Years Used Date Smoking Tobacco: Never Passive Smoke Exposure: Never Smokeless Tobacco: Never Alcohol Use Standard Drinks/Week Comments Never 0 [...] Description 12/15/2024 10:00 AM EDT Office Visit [facility] [address] [facility] [facility] [place] [address] Kathy Hair MD [address] [place] [address] documented as of this encounter Procedures Procedure Name Priority Date/Time Associated Diagnosis Comments CT CHEST WO CONTRAST Routine 11/13/2024 8:54 AM EST documented in this encounter Results * CT Chest w/o Contrast (11/13/2024 8:54 AM EST) Anatomical Region Laterality Modality Body, Chest Computed Tomogra phy 11/13/2024 8:54 AM EST Narrative 11/13/2024 8:55 AM EST ? [facility] ?[address] ?[place] [address] ? CT Scan Report ? Signed with Addenda ? Patient: Javier,Jai ?MR#: [id number] ?? 3483 ? : 1970 ?Acct:[id number] ? Age/Sex: 54 / M ?ADM Date: //25 ? Loc: HO.CT ? Attending Dr: Terrence Chris MD ? Ordering Physician: Terrence Chris MD ?? Date of Service: 11/13/24 ?? Procedure(s): CT chest wo IV con ?? Accession Number(s): [id number] ? cc: Kathy Hair MD; Terrence Chris MD ? Report Number: ?? [id number]: Total DLP = ??231.00 mGy-cm ?ADDENDUM ?? [...] by John Yarbrough MD in OV> ?11/13/24 08 ? DD/ 0854 ? TD/TT: 11/13/24 0854 ? Hydraulic Elevator Constructor: ? Procedure Note Deann Warren - 11/13/[address] [address] [address] Scan Report Signed with Addenda Patient: Jerrell Herrera#: [id number] : 1970Acct:[id number] Age/Sex: 54 / MADM Date: 11/13/24 Loc: HO.CT Attending Dr: Terrence Chris MD Ordering Physician: Terrence Chris MD Date of Service: 11/13/24 Procedure(s): CT chest wo IV con Accession Number(s): [id number] cc: Kathy Hair MD; Terrence Chris MD Report Number: [id number]: Total DLP = 231.00 mGy-cm ADDENDUM This [...] signed by John Yarbrough MD in OV> 11/13/241014 Addendum Cosigned By: DD/ TD/TT: 11/13/24 CLINICAL [...] MD Signed By: <Electronically signed by John Yarbroguh MD in OV> 11/13/24 0855 DD/ TD/TT: 11/13/24853 Hydraulic Elevator Constructor: [facility] External Provider IMG CT PROCEDURES Edited Result - Final documented in this encounter Visit Diagnoses Not on filedocumented in this encounter Additional Health Concerns Assessment Noted Time PHQ-9 Depression Total Score: 0 09/15/20 10:07 AM EST documented as of this encounter Care Teams Tobacco Drying Machine Operator Relationship Specialty Start Date End Date Kathy Hair MD [address] [place] [address] PCP - General Internal Medicine 09/15/24 documented as of this encounter
--- OUTSIDE RECORDS SUMMARY | 2024-11-24 11:57 | XMS_ITS | Referral Summary ---
Author Organization [facility] Address [address] [place] [address] Care Team Providers Care Football Scout Name Role Phone Disha Callejas MD Primary [...] Not on file Procedures * Due to [place] [employer] law, this organization might not be sharing negative HIV tests. Procedure Name Priority Date/Time Associated Diagnosis Comments COMPREHENSIVE METABOLIC PANEL Routine 07/19/2021 2:56 AM EDT from Last 3 Months or Most Recently Relevant to Health Maintenance Results * Due to [place] [employer] law, this organization might not be sharing negative HIV tests. * (ABNORMAL) Comprehensive Metabolic Panel (07/19/2021 2:56 AM EDT) NA 136 135 - 145 mmol/L 07/19/2021 3:39 AM EDT [facility] K 3.9 3.5 - 5.3 mmol/L 07/19/2021 3:39 AM EDT [facility] Cl 103 97 - 110 mmol/L 07/19/2021 3:39 AM EDT [facility] CO2 25 24 - 32 mmol/L 07/19/2021 3:39 AM EDT [facility] Anion Gap 8 5 - 15 07/19/2021 3:39 AM EDT [facility] Glucose 138(H) 70 - 99 mg/dL 07/19/2021 3:39 AM EDT [facility] Creatinine 0.99 0.60 - 1.30 mg/dL 07/19/2021 3:39 AM EDT [facility] eGFR Non- 88(L) >=90 mL/min/BS A 07/19/2021 3:39 AM [facility] eGFR >90 >=90 mL/min/BS A 07/19/2021 3:39 AM [facility] Comment: Units = mL/min/1.73 [...] 8.7 - 10.7 mg/dL 07/19/2021 3:39 AM [facility] Total Protein 7.3 6.0 - 8.0 g/dL 07/19/2021 3:39 AM [facility] Albumin 3.5 3.5 - 4.8 g/dL 07/19/2021 3:39 AM [facility] Bilirubin, Total 0.2(L) 0.3 - 1.2 mg/dL 07/19/2021 3:39 AM [facility] Alkaline Phosphatase 46 30 - 115 U/L 07/19/2021 3:39 AM [facility] AST 13 10 - 40 U/L 07/19/2021 3:39 AM [facility] ALT 16 10 - 40 U/L 07/19/2021 3:39 AM EDT [facility] BUN 29(H) 7 - 23 mg/dL 07/19/2021 3:39 AM EDT [facility] Blood Structure of peripheral vein / Unknown Venipuncture / Unknown 07/19/2021 2:56 AM EDT 07/19/2021 3:09 AM EDT [facility] Wilhelm TERMINAL COMPUTER OPERATOR LAB BLOOD ORDERABLES Final Result [facility] [address] [place] [address], from Last 3 Months or Most Recently Relevant to Health Maintenance Insurance [employer] Advance Directives * Full Code (Latest Code Status on File) Date Activated Date Inactivated Comments 07/15/2021 3:20 AM 07/19/2021 5:11 PM Care Teams Football Scout Relationship Specialty Start Date End Date Disha Callejas MD PCP - General Family Medicine 04/27/20
--- OUTSIDE RECORDS SUMMARY | 2024-11-24 11:57 | XMS_ITS | Encounter Summary ---
Author Organization [facility] Address [address] [place] [address] Care Team Providers Care Brush Worker Name Role Phone Kathy Hair MD Primary Care Provide r Reason for Visit * Reason Comments Med Refill Encounter Details Date Type Department Care Team ([facility] Contact Info) Description 01/10/2024 Refill [facility] [address] [place] [address] Annelise Joseph FNP [address] [place] [address] Social History Tobacco Use Types Packs/Day Years [...] 10:00 AM EDT Office Visit [facility] [address] [place] [phone] Kathy Hair MD [address] [place] [address] documented as of this encounter Visit Diagnoses Not on filedocumented in this encounter Care Teams Brush Worker Relationship Specialty Start Date End Date Kathy Hair MD [address] [place] [id number] PCP - General Internal Medicine 09/15/24 documented as of this encounter
--- OUTSIDE RECORDS SUMMARY | 2024-11-24 11:57 | XMS_ITS | Encounter Summary ---
Author Organization [facility] Address [address] [place] [address] Care Team Providers Care Vocational Training Instructor Name Role Phone Kathy Hair MD Primary Care Provide r Reason for Visit * Reason Comments Med Refill Encounter Details Date Type Department Care Team (Late Contact Info) Description 07/15/2024 Refill [facility] [address] [place] [phone] Kenan Mays MD [address] [place] [id number] Essential hypertension Social History Tobacco Use Types [...] Description 12/15/2024 10:00 AM EDT Office Visit [facility] [address] [place] [phone] Kathy Hair MD [address] [place] [phone] documented as of this encounter Visit Diagnoses Diagnosis Essential hypertension Unspecified essential hypertension documented in this encounter Care Teams Vocational Training Instructor Relationship Specialty Start Date End Date Kathy Hair MD [address] [place] [id number] PCP - General Internal Medicine 09/15/24 documented as of this encounter
== END 2024-11-24 11:16 | disposition home or self-care (01) ==
PROVIDERS: PCP Internal Medicine; Visit Provider Urology
DX: C64.9 Malignant neoplasm of unspecified kidney, except renal pelvis (principal)
CPT/HCPCS: 99204

== ENCOUNTER → 2024-11-24 10:02 | Outpatient (BNVA) | payer MEDICAID, SELFPAY | PROVIDERS: PCP Internal Medicine; Visit Provider Urology | DX: C64.9 Malignant neoplasm of unspecified kidney, except renal pelvis (principal) | CPT/HCPCS: 99202 ==

== ENCOUNTER 2024-12-15 10:29 | Outpatient (REF) | payer MEDICAID, SELFPAY ==
--- OUTSIDE RECORDS SUMMARY | 2024-12-15 12:35 | XMS_ITS | Referral Summary ---
Author Organization [facility] Address [address] [place] [address] Care Team Providers Care Cup Machine Operator Name Role Phone Disha Callejas MD Primary Care Provider [phone] Allergies No known active allergies Medications latanoprost [...] Not on file Procedures * Due to [place] [employer] law, this organization might not be sharing negative HIV tests. Procedure Name Priority Date/Time Associated Diagnosis Comments COMPREHENSIVE METABOLIC PANEL Routine 07/19/2021 2:56 AM EDT from Last 3 Months or Most Recently Relevant to Health Maintenance Results * Due to [place] [employer] law, this organization might not be sharing negative HIV tests. * (ABNORMAL) Comprehensive Metabolic Panel (07/19/2021 2:56 AM EDT) NA 136 135 - 145 mmol/L 07/19/2021 3:39 AM EDT [facility] K 3.9 3.5 - 5.3 mmol/L 07/19/2021 3:39 AM EDT [facility] Cl 103 97 - 110 mmol/L 07/19/2021 3:39 AM EDT [facility] CO2 25 24 - 32 mmol/L 07/19/2021 3:39 AM EDT [facility] Anion Gap 8 5 - 15 07/19/2021 3:39 AM EDT [facility] Glucose 138(H) 70 - 99 mg/dL 07/19/2021 3:39 AM EDT [facility] Creatinine 0.99 0.60 - 1.30 mg/dL 07/19/2021 3:39 AM EDT [facility] eGFR Non- 88(L) >=90 mL/min/BS A 07/19/2021 3:39 AM [facility] eGFR >90 >=90 mL/min/BS A 07/19/2021 3:39 AM [facility] Comment: Units = mL/min/1.73 [...] 8.7 - 10.7 mg/dL 07/19/2021 3:39 AM [facility] Total Protein 7.3 6.0 - 8.0 g/dL 07/19/2021 3:39 AM [facility] Albumin 3.5 3.5 - 4.8 g/dL 07/19/2021 3:39 AM [facility] Bilirubin, Total 0.2(L) 0.3 - 1.2 mg/dL 07/19/2021 3:39 AM [facility] Alkaline Phosphatase 46 30 - 115 U/L 07/19/2021 3:39 AM [facility] AST 13 10 - 40 U/L 07/19/2021 3:39 AM [facility] ALT 16 10 - 40 U/L 07/19/2021 3:39 AM EDT [facility] BUN 29(H) 7 - 23 mg/dL 07/19/2021 3:39 AM EDT [facility] Blood Structure of peripheral vein / Unknown Venipuncture / Unknown 07/19/2021 2:56 AM EDT 07/19/2021 3:09 AM EDT us [facility] Wilhelm BIOMASS POWER PLANT SUPERINTENDENT LAB BLOOD ORDERABLES Final Result [facility] [address] [place] [address], from Last 3 Months or Most Recently Relevant to Health Maintenance Insurance [employer] Advance Directives * Full Code (Latest Code Status on File) Date Activated Date Inactivated Comments 07/15/2021 3:20 AM 07/19/2021 5:11 PM Care Teams Cup Machine Operator Relationship Specialty Start Date End Date Disha Callejas MD PCP - General Family Medicine 04/27/20
--- OUTSIDE RECORDS SUMMARY | 2024-12-15 12:35 | XMS_ITS | Data Portability ---
Author Organization [place] - [facility] Address [address] [place] [address] Care Team Providers Care Paper Gluing Operator Name Role Phone DISHA CALLEJAS Primary Care Provider DISHA CALLEJAS Referring Provider Assessment No assessment recorded. Plan of Treatment Reminders Order Date Submit Date Provider Last Modified By Organization Details Last Modified Time Details Appointments None recorded. Lab urinalysis, dipstick [address] ([facility]), [address], [place], [address], 08:13:50 culture, urine 2021 [facility], [address] [place], [address], 10:17:56 HbA1c (hemoglobin A1c), blood 2021 [email or web address] [facility], [address] [place], [address], 10:40:35 CMP, serum or plasma 2021 [facility], [address] [place], [address], 17:17:13 lipid panel, serum 2021 [facility], [address] [place], [address], 2 17:17:14 Referral gastroenter ologist referral [email or web address] [place] [address] - Gi, [address] [facility], [address], [place], [address], 08:26:45 nutritionis t/dietitian referral 2020 021 [email or web address] 4 [facility] (Nutrition Services), [address] [place], [address], 15:42:35 Procedures None recorded. Surgeries None recorded. Imaging US, kidney - right kidney 2021 022 [facility] (Central Scheduling), [address] [place], [address], 2 08:54:00 Medication Orders diclofenac 1 % topical gel 2021 022 [facility]/Pharmacy #[id number], [address] [place], [place], [id number], 2 12:33:58 metronidazo le 500 mg tablet [address]/Pharmacy #[id number], [address] [place], [place], [id number], 13:50:46 Cipro 500 mg tablet [address]/Pharmacy #[id number], [address] [place], [place], [id number], 2 13:50:40 Patient Targets Encounter Date Encounter Id Patient Goals Patient Target Last Modified By Organization Details Last Modified Time Goals:1. Promote weight loss of 1# per week.2. Promote BGlu management with HbA1C <5.7%3. Promote lipid panel WNL.4. Promote regular physical activity. 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 PANEL sodium 136 mmol/ L 136-14 5 normal Not Available [facility] Laboratory Department [address] [place], [address] 10/26/2021 17:17:12 10/26/19 22 10/26/2021 COMPR EHENS MACIE MET. PANEL potassium 4.0 mmol/ L 3.5-5. 1 normal Not Available [facility] Department [address] [place], [address] 10/26/2021 17:17:12 10/26/19 22 10/26/2021 COMPR EHENS MACIE MET. PANEL chloride 100 mmol/ L 98-107 normal Not Available [facility] Department [address] [place], [address] 10/26/2021 17:17:12 10/26/19 22 10/26/2021 COMPR EHENS MACIE MET. PANEL carbon dioxide 25.3 mmol/ L 22-29 normal Not Available [facility] Department [address] [place], [address] 10/26/2021 17:17:12 10/26/19 22 10/26/2021 COMPR EHENS MACIE MET. PANEL anion gap 15 mmol/ L 10-20 normal Not Available [facility] Department [address] [place], [address] 10/26/2021 17:17:12 10/26/19 22 10/26/2021 COMPR EHENS MACIE MET. PANEL blood urea nitrogen 16 mg/dL 6-20 normal Not Available [facility] Laboratory Department [address] [place], [address] 10/26/2021 17:17:12 10/26/19 22 10/26/2021 COMPR EHENS MACIE MET. PANEL creatinine 0.79 mg/dL 0.70-1 .2 normal Not Available [facility] Department [address] [place], [address] 10/26/2021 17:17:12 10/26/19 22 10/26/2021 COMPR EHENS [...] under the age of 18 Not Available [facility] Laboratory Department [address] [place] [address], [address] 10/26/2021 17:17:12 10/26/19 22 10/26/2021 COMPR EHENS MACIE MET. PANEL glucose 116 mg/dL 70-106 high Not Available [facility] Department [address] [place] [address], [address] 10/26/2021 17:17:12 10/26/19 22 10/26/2021 COMPR EHENS MACIE MET. PANEL calcium 9.4 mg/dL 8.6-10 .3 normal Not Available [facility] Department [address] [place] [address], [address] 10/26/2021 17:17:12 10/26/19 22 10/26/2021 COMPR EHENS MACIE MET. PANEL bilirubin total 0.4 mg/dL 0.2-1. 2 normal Not Available [facility] Department [address] [place] [address], [address] 10/26/2021 17:17:12 10/26/19 22 10/26/2021 COMPR EHENS MACIE MET. PANEL aspartate amino transferase 23 U/L 5-40 normal Not Available [facility] Laboratory Department [address] [place] [address], [address] 10/26/2021 17:17:12 10/26/19 22 10/26/2021 COMPR EHENS MACIE MET. PANEL alanine aminotransfe rase 27 U/L 5-41 normal Not Available [facility] Laboratory Department [address] [place], [address] 10/26/2021 17:17:12 10/26/19 22 10/26/2021 COMPR EHENS MACIE MET. PANEL total protein 7.1 g/dL 6.4-8. 3 normal Not Available [facility] Department [address] [place] [address], [address] 10/26/2021 17:17:12 10/26/19 22 10/26/2021 COMPR EHENS MACIE MET. PANEL albumin level 4.4 g/dL 3.5-5. 2 normal Not Available [facility] Department [address] [place] [address], [address] 10/26/2021 17:17:12 10/26/19 22 10/26/2021 COMPR EHENS MACIE MET. PANEL globulin 2.7 gm/dL 2.0-3. 5 normal Not Available [facility] Department [address] [place], [address] 10/26/2021 17:17:12 10/26/19 22 10/26/2021 COMPR EHENS MACIE MET. PANEL albumin globulin ratio 1.6 % 1.1-2. 5 normal Not Available [facility] Department [address] [place], [address] 10/26/2021 17:17:12 10/26/19 22 10/26/2021 COMPR EHENS MACIE MET. PANEL alkaline phosphatase 60 U/L 40-129 normal Not Available [facility] Department [address] [place] [address], [address] 10/26/2021 17:17:12 10/26/19 22 10/26/2021 LIPID PANEL WITH REFLE X triglyceride s w/ reflex LDL 208 mg/dL 30-150 high Refer ence Range s: <150 mg/dl Faby l 150-1 99 mg/dl Borde rline High 200-4 99 mg/dl High >500 mg/dl Very High Not Available [facility] Department [address] [place] [address], [address] 10/26/2021 17:17:13 10/26/19 22 10/26/2021 LIPID PANEL WITH REFLE X cholesterol 148 mg/dL 100-20 0 normal Not Available [facility] Department [address] [place] [address], [address] 10/26/2021 17:17:13 10/26/19 22 10/26/2021 LIPID PANEL [...] mg/dL Very high >190 mg/dL Not Available [facility] Department [address] [place] [address], [address] 10/26/2021 17:17:13 10/26/19 22 10/26/2021 LIPID PANEL WITH REFLE X HDL cholesterol 37.9 mg/dL 40-60 low Major risk facto r for CHD: <40 mg/dL Negat macie risk facto r for CHD: >=60 mg/dL Not Available [facility] Department [address] [place] [address], [address] 10/26/2021 17:17:13 10/26/19 22 10/26/2021 LIPID PANEL WITH REFLE X chol HDL ratio 3.91 Risk CHOL/ HDL CHOL/ HDL Ratio Male Femal e 1/2 AVERA GE 3.43 3.27 AVERA GE 4.97 4.44 2 X AVERA GE 9.55 7.05 3 X AVERA GE 23.39 11.04 Not Available [facility] Department [address] [place] [address], [address] 10/26/2021 17:17:13 12/06/19 22 12/05/2021 URINE CULTU [...] ----- -- PATIE NT: Nancy Wilcox ACCT: [id number] [facility] U: [id number] AGE/S X: 51/M ROOM: RE12/[address]: Aurelia carver : 05/27 BED: DIS: STATU S: DEP CLI TLOC: ----- ----- ----- ----- ----- ----- ----- ----- ----- ----- ----- ----- ----- ----- ----- ----- ----- ----- -- SPEC #: [id number] LUCRECIA: 12/05-U NK STATU S: COMP REQ #: [id number] RECD: 12/05- [address]: Aurelia carver [facility] E: Caleb mullen ENTR: 12/05- 751 OT [...] -- END OF REPOR T Not Available [facility] Department [address], [place], [address] 12/07/2021 10:17:56 12/06/19 22 12/05/2021 urina lysis , dipst ick SPECIFIC GRAVITY 1.010 Not Available [facility] ([facility]) [address] [place], [address], 12/05/2021 08:06:56 12/06/19 22 12/05/2021 urina lysis , dipst ick PH 7.0 Not Available [facility] ([facility]) [address] [place], [address], 12/05/2021 08:06:56 12/06/19 22 12/05/2021 urina lysis , dipst ick LEUKOCYTES Neg Not Available [facility] ([facility]) [address] [place], [address], 12/05/2021 08:06:56 12/06/19 22 12/05/2021 urina lysis , dipst ick NITRITE Neg Not Available [facility] ([facility]) [address] [place], [address], 12/05/2021 08:06:56 12/06/19 22 12/05/2021 urina lysis , dipst ick PROTEIN Neg Not Available [facility] ([facility]) [address] [place], [address], 12/05/2021 08:06:56 12/06/19 22 12/05/2021 urina lysis , dipst ick GLUCOSE Neg Not Available [facility] ([facility]) [address] [place], [address], 12/05/2021 08:06:56 12/06/19 22 12/05/2021 urina lysis , dipst ick KETONE Neg Not Available [facility] ([facility]) [address], [place], [address], 12/05/2021 08:06:56 12/06/19 22 12/05/2021 urina lysis , dipst ick UROBILINOGEN Normal Not Available [facility] ([facility]) [address], [place], [address], 12/05/2021 08:06:56 12/06/19 22 12/05/2021 urina lysis , dipst ick BILIRUBIN Neg Not Available [facility] ([facility]) [address] [place], [address], 12/05/2021 08:06:56 12/06/19 22 12/05/2021 urina lysis , dipst ick BLOOD Neg Not Available [facility] ([facility]) [address], [place], [address], 12/05/2021 08:06:56 12/07/19 22 12/06/2021 [facility], [facility] [address] [facility] [place] [address] Ultras ound Report Signed Patien t: Sarabjit Castelan MR#: [id number] : 1969 Acct:H [id number] Age/Se x: 51 / M ADM Date: Loc: [facility]ILLATORO Attend ing Dr: Disha lilly MD Orderbrent Bowie kei: Disha lilly Date of Servic e: Proced ure(s) : US renal BI Access ion Number (s): [id number] H cc: Disha lilly EXAM: US renal [...] Transc riptio nist: [email or web address] [address] [place] [address], [address], 12/08/2021 08:15:53 Result Notes None recorded. Problems Name Problem SNOMED Code Status Onset Date Resolution Date Notes Provider Name and Address Organization Details Recorded Time Benign essential hypertensi on 5557980 Active 2019 Not Available [facility] 0 23:48:14 Hematemesi s 7057600 Active 2019 Carlton Hamilton MD [address] [place] [address]. [place], [address] , [facility] 0 17:09:26 COVID-19 185755957 Active 2020 Disha Callejas MD [address] [facility] [place], [address] , [facility] 15:39:26 Atrial fibrillati on 22204526 Active 2020 Disha Callejas MD [address] [facility] [place], [address] , [facility] 15:46:00 Glaucoma 46030527 Active 2020 Disha Callejas MD [address] [facility] [place], [address] , [facility] 15:46:06 Prediabete s 507980964 Active 2020 Disha Callejas MD [address] [place] [address] [place], [address] , [facility] 15:46:07 Nodule of lung 353716541 Active 2020 Disha Callejas MD [address] [place] [address] [place], [address] , [facility] 15:46:15 History of myocardial infarction 972870341 Active 2020 Disha Callejas MD [address] [place] [address] [place], [address] , [facility] 2 09:04:19 Left ventricula r hypertroph y 02933819 Active 2020 Disha Callejas MD [address] [place] [address] [place], [address] , [facility] 15:46:39 Erectile dysfunctio n 622542959 Active 2020 Disha Callejas MD [address] [facility] [place], [address] , [facility] 15:46:55 History of SARS-CoV-2 9247953042051 [address]7460 Active [address] [facility], [facility] 2 11:01:47 Myocardial infarction 17955312 Active 2021 Leora Castaneda, RN, BSN [facility], [facility] 2 08:51:03 Problem Notes None recorded. Procedures Surgical History Date Name Laterality Status Provider Name and Address Organization Details Recorded Time 12/07/19 22 Nutrition completed Monica Ferrara, , RDN, LDN [address] [place], [address], [facility] 12/29/2021 11:49:46 10/26/19 22 PHQ-9 Patient Health Questionnaire completed Disha Callejas MD [address] [place] [address], [address], [facility] 10/26/2021 11:40:38 06/16/20 20 PHQ-9 Patient Health Questionnaire completed Disha Callejas MD [address] [place] [address], [address], [facility] 06/16/2020 09:15:13 10/07/19 20 colonoscopy completed Disha Callejas MD [address] [place] [address], [address], [facility] 06/16/2020 08:45:24 partial nephrectomy completed Disha Callejas MD [address] [place] [address], [address], [facility] 04/07/2020 09:27:15 Imaging Results Imaging Date Name Status LastModified by Organiz ation Details LastModified Time 12/06/2021 US, kidney completed [email or web address] [address] [place], [address], 12/08/2021 08:15:53 Procedure Notes None recorded. Medical [...] Last Updated DateTime 187.96 cm 32.6 kg/m2 005596. 46 g 67 /min 97 % 97 % 138 mm[Hg] 92 mm[Hg] Ken Weldon MA [facility] 15:15:44 Date Recorded Systolic blood pressure Diastolic blood pressure Provider Name and Address Organization Details Last Updated DateTime 08/02/2021 132 mm[Hg] 84 mm[Hg] Disha Callejas MD [address] [place] [address], [address], [facility] 08/02/2021 15:47:45 Date Recorded Body height Body mass index (BMI) Body weight Oxygen saturation Oxygen saturation in Arterial blood by Pulse oximetry Heart rate Systolic blood pressure Diastolic blood pressure Systolic blood pressure Diastolic blood pressure Provider Name and Address Organization Details Last Updated DateTime 2 187.96 cm 34 kg/m2 644695. 98 g 95 % 95 % 71 /min 128 mm[Hg] 100 mm[Hg] 130 mm[Hg] 102 mm[Hg] Catherine Ramirez [facility] 2 11:05:16 Date Recorded Body height Body mass index (BMI) Body weight Heart rate Systolic blood pressure Diastolic blood pressure Provider Name and Address Organization Details Last Updated DateTime 2 187.96 cm 33.5 kg/m2 210060. 61 g 64 /min 124 mm[Hg] 84 mm[Hg] Yandy Azizakurt [facility] 2 07:47:48 Date Recorded Body height Body mass index (BMI) Body weight Provider Name and Address Organization Details Last Updated DateTime 12/06/2021 187.96 cm 33.4 kg/m2 602992.02 g Monica Ferrara, MS, RDN, LDN [address] [place], [address], [facility] 12/06/2021 09:26:01 Date Recorded Body height Body mass index (BMI) Body weight Heart rate Oxygen saturation Oxygen saturation in Arterial blood by Pulse oximetry Systolic blood pressure Diastolic blood pressure Provider Name and Address Organization Details Last Updated DateTime 2 187.96 cm 33.7 kg/m2 994377 g 64 /min 98 % 98 % 123 mm[Hg] 82 mm[Hg] Peri Cazares [facility] 2 12:22:10 Social History Question Answer Notes LastModified by Organizat ion Details LastModified Time Tobacco Smoking Status Never Smoker Disha Callejas MD [address] [place], [address], [facility] 04/07/2020 09:18:54 What Is Your Level Of [...] available 04/07/2020 Date Of Tobacco Screen 08/01/2021 [email or web address] Information not available 08/01/2021 Members Of Household 1 Information not available 04/07/2020 Marital Status Informatio n not available 04/07/2020 What Was The Date Of Your Most Recent Tobacco Screening? 10/26/2021 [email or web address] Information not available 10/26/2021 How Many Children Do You Have? 4 Information not available 04/07/2020 What Is Your Relationship Status? [email or web address] Information not available 08/01/2021 Do You Use Any Illicit Or Recreational Drugs? No [email or web address] Information not available 08/01/2021 Sex: Unknown Functional [...] Time zoster recombinant 0 completed AURY Ballesteros [facility] 08/01/2021 15:38:02 COVID-19, mRNA, LNP-S, PF, 30 mcg/0.3 mL dose 1 completed Disha Callejas MD [address] [place] [address], [address], [facility] 10/26/2021 11:31:11 COVID-19, mRNA, LNP-S, PF, 30 mcg/0.3 mL dose 1 completed Disha Callejas MD [address] [place] [address], [address], [facility] 10/26/2021 11:31:11 Influenza, split virus, quadrivalent, PF 8 completed Disha Callejas MD [address] [place] [address] [place], [address], [facility] 10/26/2021 11:31:11 Influenza, split virus, trivalent, preservative 4 completed Disha Callejas MD [address] [place] [address] [place], [address], [facility] 10/26/2021 11:31:11 Influenza, split virus, trivalent, preservative 7 completed Disha Callejas MD [address] [place] [address] [place], [address], [facility] 10/26/2021 11:31:11 Influenza, split virus, quadrivalent, PF 1 completed Disha Callejas MD [address] [place] [address] [place], [address], [facility] 10/26/2021 11:31:11 Influenza, split virus, quadrivalent, PF 0 completed Disha Callejas MD [address] [place] [address] [place], [address], [facility] 10/26/2021 11:31:11 Influenza, split virus, trivalent, preservative 1 completed Disha Callejas MD [address] [place] [address] [place], [address], [facility] 10/26/2021 11:31:11 pneumococcal polysaccharide PPV23 1 completed Disha Callejas MD [address] [place] [address] [place], [address], [facility] 10/26/2021 11:31:11 Influenza, split virus, trivalent, preservative 5 completed Disha Callejas MD [address] [place] [address] [place], [address], [facility] 10/26/2021 11:31:11 Influenza, split virus, trivalent, preservative 2 completed Disha Calleajs MD [address] [place] [address], [address], [facility] 10/26/2021 11:31:11 Influenza, split virus, trivalent, preservative 6 completed Disha Callejas MD [address] [place] [address], [address], [facility] 10/26/2021 11:31:11 Influenza, split virus, trivalent, preservative 3 completed Disha Callejas MD [address] [place] [address], [address], [facility] 10/26/2021 11:31:11 Td (adult), 2 Lf tetanus toxoid, preservative free, adsorbed 1 completed Disha Callejas MD [address] [place] [address], [address], [facility] 10/26/2021 11:31:11 Tdap 0 completed Yandy Irizarry CMA [facility] 06/16/2020 09:19:12 Past Encounters Encounter ID Performer Location Encounter Start Date Encounter Closed Date Diagnosis/Indication Diagnosis SNOMED-CT Code Diagnosis ICD10 Code Diagnosis Note [id number] Disha Callejas MD [address] [address] 04/07/2020 09:07:08 04/07/2020 09:33:17 Benign essential hypertension 3312313 I10 Patient has a history of hypertensi on for which he has been taking amlodipine 5mg and lisinopril 40mg daily. His blood pressure is currently well controlled . He will continue current medication s which were prescribed today. He will follow-up in 2 months for a physical. Glaucoma 69809069 H40.9 Patient has a history of glaucoma for which he uses eye drops. He has no refills at this time, but has an appointmen t scheduled with an eye doctor next month. Gastroesop hageal reflux disease 226877976 K21.9 Patient has a history of GERD for which he has been taking omeprazole 20mg daily. He notes that while he was in nursing home, he got a colonoscop y and was supposed to get an endoscopy as he intermitte ntly has been spitting up blood. GI referral placed and omeprazole refilled. History of malignant neoplasm of kidney 685625300 Z85.528 Patient has a history of a renal tumor which was removed in 2013. He has not had significan t follow-up since then. Recommende d nephrology evaluation . Referral placed. [id number] Disha Callejas MD [facility] [address] [place] [address] 06/16/2020 08:29:53 06/16/2020 09:11:41 Adult health examination 424306939 Z00.00 Patient should discuss medical decisions with Health Care Proxy. Recommende d screenings included colonoscop y screening age 50, earlier based on family history/ri sk factors; one time screen for hepatitis C if born between 2638-3498 or has risk factors. Reviewed vaccines and current recommenda tions. Basic health topics include aerobic exercise, importance of healthy/ba lanced diet and minimizing caffeine and alcohol. Administra tion of diphtheria, pertussis, and tetanus vaccine 523344968 Z23 Patient due for Tdap vaccinatio n. Administer ed today. Screening for malignant neoplasm of colon 825276142 Z12.11 Patient reports a colonoscop y in September of 2019 while he was in nursing home. No records available, but states he has a history of polyps. Will plan for follow-up colonoscop y in 3-5 years. Varicella vaccination 68 003447 Z23 Patient due for shingles vaccinatio n. Prescribed to his pharmacy. Benign ess ential hypertension 0735169 I10 Patient has a history of hypertensi on for which he has been taking amlodipine 5mg and lisinopril 40mg daily. His blood pressure is currently well controlled . He will continue current medication s which were prescribed today. He will follow-up in 2 months for a physical. At [facility] risk of sexually transmitted infection 795993863 Z20.2 Patient was recently in nursing home and would like to be tested for STDs. Blood and urine obtained for testing today. Hyperlipid emia screening 514147942 Z13.220 Patient due for hyperlipid emia screening. Lipid panel obtained today. Large prostate 558513782 N40.0 Patient has a slightly enlarged prostate on examinatio n. Will check PSA today. Impotence of organic origin 184020381 N52.9 Patient has been struggling with getting and maintainin g an erection. Discussed risks and benefits of medication . Prescribed sildenafil 50mg daily as needed. Patient will follow-up if not improving. Hemorrhoids 11158607 K64 .9 Patient has internal hemorrhoid s which are causing him pressure and discomfort . Prescribed hydrocorti sone cream to use topically and help his symptoms. [id number] Carlton Hamilton MD [facility] [address] [place] [address] [address] [place] [address] 07/18/2020 16:45:30 07/18/2020 17:23:52 Hematemesis 0893071 K92.0 A few episodes of bringing up blood (he thinks from the stomach) in Aug and wishes an EGD. No melena. No other red flag ROS. On PRN omeprazole for occasional upper GI ROS. S/p distant treated H.Pylori without check of eradicatio n. Family his tory of cancer of colon 646023898 Z80.0 Father History of polyp of colon 008943712 Z86.010 On prior colons [id number] Donna Segal MD [facility] [address] [place] [address] [address] [place] [address] 07/31/2020 14:46:41 07/31/2020 14:47:09 Viral screening 197757512 Z11.59 [id number] Xavier Curtis III, MD [address] [address] 09/19/2020 12:23:54 09/19/2020 12:48:00 Onychomycosis due to dermatophyte [id number] B35.1 Patient educated about onychomyco sis and that the process to treat this can take some time. Patient will start on medication as directed and is aware of the side effects. Patient will follow up if no improvemen t after 1 month. If no improvemen t then try oral medication . Patient can call with any concerns. History of myocardial infarction [id number] I25.2 Patient stated he had a heart attack back in 2016 and had a pain a couple months ago which scared him. Patient hasn't had pain since. Patient would like a referral to cardiology . [id number] Donna Segal MD [facility] [address] [place] [address] [address] [place] [address] 10/07/2020 16:21:41 10/07/2020 16:22:35 Viral screening [id number] Z11.59 [id number] Disha Callejas MD [address] [phone] 08/02/2021 15:02:27 08/02/2021 16:13:54 COVID-19 [id number] U07.1 Estefania was hospitaliz ed from 07/14/21-1 at [facility] for COVID-19 infection and pneumonia. He was treated with remdesivir and ceftriazon e/azithrom ycin. He is feeling much better, but continues to have a slight cough and some fatigue. Encouraged patient to work on rebuilding his stamina and use honey or cough drops to help with his cough. Patient will follow-up as needed. Prediabetes [id number] R7 3.03 Patient has a history of prediabete s. He would like to see a nutritioni st, referral placed. Benign ess ential hypertension [id number] I10 Patient has a history of hypertensi on for which he has been taking chlorthali done 12.5mg daily and lisinopril 40mg daily. His blood pressure is currently well controlled . He will continue current medication s which were prescribed today. He will follow-up in 2 months or earlier as needed. [id number] Disha Callejas MD [address] [address] 10/26/2021 10:51:54 10/26/2021 11:39:09 Adult health examination [id number] Z00.01 Patient should discuss medical decisions with Health Care Proxy. Recommende d screenings included colonoscop y screening age 50, earlier based on family history/ri sk factors; one time screen for hepatitis C if born between 9871-0561 or has risk factors. Reviewed vaccines and current recommenda tions. Basic health topics include aerobic exercise, importance of healthy/ba lanced diet and minimizing caffeine and alcohol. Administra tion of diphtheria, pertussis, and tetanus vaccine [id number] Z23 Patient is up to date, received TDAP in 2020. Screening for malignant neoplasm of colon [id number] Z12.11 Patient reports a colonoscop y in September of 2019 while he was in nursing home. No records available, but states he has a history of polyps. Will plan for follow-up colonoscop y in 3-5 years. Viral screening [id number] Z11.59 Non-reacti ve screening in 2020. Varicella vaccination 68 819653 Z23 Patient due for shingles vaccinatio n. Prescribed to his pharmacy. Benign ess ential hypertension [id number] I10 Patient has a history of hypertensi [...] controlled with emtoprolol succinate 50mg daily. Prediabetes [id number] R7 3.03 Patient has a history of prediabete s. Will check blood work today. Nodule of lung [id number] R91.1 Patient was found to have a mass in his right lung. He is seeing pulmonolog y at [facility] and has had follow-up scans which demonstrat ed no growth of the area. 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 He is now having right flank pain which he states as the same as prior to his partial nephrectom y. Will obtain an ultrasound to evaluate the remaining kidney. Hematemesis [id number] K92. 0 Patient has a history of coughing up blood and hematemesi s (although has not vomited recently). He has had evaluation s of his lungs and is interested in an endoscopy to check his esophagus. Referral placed to GI. [id number] Disha Callejas MD [address] [place] [address] 12/05/2021 07:39:05 12/05/2021 08:06:25 Left lower quadrant pain [id number] R10.32 He states he has been having [...] with no improvemen t in symptoms. Diverticulitis [id number] K57.92 Patient noted with left lower quadrant [...] or with no improvemen t in symptoms. [id number] Monica Ferrara, , RDN, LDN [facility] [address] [place] [address] it [address] [place] [address] 12/06/2021 08:04:43 12/06/2021 10:40:31 Prediabetes [id number] R73.03 Summary of Visit:Gi saavedra is a 51 year old primarily Guatemalan speaking male referred for prediabete s. Jyoti [...] food groups/lis ts- What Can I Eat? Guatemalan handout- Healthy Snack Guatemalan handout- Healthy Plate Guatemalan handout Educator Assessed Learning Barriers: language barrier [id number] Disha Callejas MD [facility] [address] [place] [phone] 01/04/2022 12:15:26 01/04/2022 12:39:32 Arthritis of left knee [id number] M13.862 Suspected arthritis along with meniscus wear [...] Girard Member ID Guarantor Name 08/02/2021 1 [facility] (MEDICAID HMO) [id number] Jai Javier [id number] Jai Javire 10/26/2021 1 [facility]MEDICAID HMO) [id number] Jai Javier [id number] Jai Javier 12/05/2021 1 [facility] HE[facility] NET PLAN (MEDICAID HMO) [id number] Jai Javier [id number] Jai Javier 12/06/2021 1 [facility] (MEDICAID HMO) [id number] Jai Javier [id number] Jai Javier 01/04/2022 1 [facility] (MEDICAID HMO) [id number] Jai Javier [id number] Jai Ajvier Notes Date Note Type Note Provider Name and Address Organization Details Recorded Time 08/02/2021 text/html Patient is a 51 year old male who presents today for a hospital follow-up. He was hospitalized from 07/14/21-07/18/21 for COVID. He was hospitalized at [facility]. He got antibiotics (ceftriaxone and azithromycin for pneumonia) and remdesivir while he was hospitalized. He is feeling much better since he got out of the hospital. Disha Callejas MD [address] [place] [address], [phone], [facility] 08/02/2021 15:50:26 10/26/2021 text/html Patient is a [...] prior to having surgery. Disha Callejas MD [address] [place] [address], [phone], [facility] 10/26/2021 11:40:45 12/05/2021 text/html Patient is 51 [...] 2019 that showed diverticulosis. 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 Social Support:Primary Support Person: self, GFLiving Arrangements: lives with GF Previous Diet Education/Training:Pr evious Visit with Dietitian: none Meals and Dining:Meals per day:Snacks per day:Skips meals:Recent dietary changes: eating less latelySpecial diets in the past:Food Allergy or intolerances: none reportedPrimary Straightening Machine Operator: usually [facility] Food Gunite Mixer:bothDining Out frequency: 1x per weekAlcohol Intake: noneSupplements: Diet recall:- Breakfast: sandwich w/ 1 slice ham and 1 slice cheese, 2 eggs, on potato bread- Lunch: chicken with slovenian fries OR empanadas OR sometimes mixed veggies [...] me Monica Ferrara, MS, RDN, LDN [address] [place], [phone], [facility] 12/29/2021 12:04:04 01/04/2022 text/html Patient is a [...] tingling or swelling. Disha Callejas MD [address] [place], [phone], [facility] 01/04/2022 16:38:41
--- OUTSIDE RECORDS SUMMARY | 2024-12-15 12:35 | XMS_ITS | Clinical Summary ---
Author Organization [facility] Address [address] [place] [address] Care Team Providers Care Solar Sales Representative And Assessor Name Role Phone Disha Callejas MD Primary Care Provider [phone] Allergies No known active allergies Medications latanoprost [...] 75+ series) 2045 Procedures * Due to [place] state law, this organization might not be sharing negative HIV tests. Procedure Name Priority Date/Time Associated Diagnosis Comments COMPREHENSIVE METABOLIC PANEL Routine 07/19/2021 2:56 AM EDT from Last 3 Months or Most Recently Relevant to Health Maintenance Results * Due to [place] state law, this organization might not be sharing negative HIV tests. * (ABNORMAL) Comprehensive Metabolic Panel (07/19/2021 2:56 AM EDT) NA 136 135 - 145 mmol/L 07/19/2021 3:39 AM EDT [facility] K 3.9 3.5 - 5.3 mmol/L 07/19/2021 3:39 AM EDT [facility] Cl 103 97 - 110 mmol/L 07/19/2021 3:39 AM EDT [facility] CO2 25 24 - 32 mmol/L 07/19/2021 3:39 AM EDT [facility] Anion Gap 8 5 - 15 07/19/2021 3:39 AM EDT [facility] Glucose 138(H) 70 - 99 mg/dL 07/19/2021 3:39 AM EDT [facility] Creatinine 0.99 0.60 - 1.30 mg/dL 07/19/2021 3:39 AM EDT [facility] eGFR Non- 88(L) >=90 mL/min/BS A 07/19/2021 3:39 AM EDT [facility] eGFR >90 >=90 mL/min/BS A 07/19/2021 3:39 AM EDT [facility] Comment: Units = mL/min/1.73 [...] - 10.7 mg/dL 07/19/2021 3:39 AM EDT [facility] Total Protein 7.3 6.0 - 8.0 g/dL 07/19/2021 3:39 AM EDT [facility] Albumin 3.5 3.5 - 4.8 g/dL 07/19/2021 3:39 AM EDT [facility] Bilirubin, Total 0.2(L) 0.3 - 1.2 mg/dL 07/19/2021 3:39 AM EDT [facility] Alkaline Phosphatase 46 30 - 115 U/L 07/19/2021 3:39 AM EDT [facility] AST 13 10 - 40 U/L 07/19/2021 3:39 AM EDT [facility] ALT 16 10 - 40 U/L 07/19/2021 3:39 AM EDT [facility] BUN 29(H) 7 - 23 mg/dL 07/19/2021 3:39 AM EDT [facility] Blood Structure of peripheral vein / Unknown Venipuncture / Unknown 07/19/2021 2:56 AM EDT 07/19/2021 3:09 AM EDT Marietta Wilhelm FRUIT GRADING SUPERVISOR LAB BLOOD ORDERABLES Final Result [facility] [address] [place] [address], from Last 3 Months or Most Recently Relevant to Health Maintenance Insurance [employer]ICA[employer] Advance Directives * Full Code (Latest Code Status on File) Date Activated Date Inactivated Comments 07/15/2021 3:20 AM 07/19/2021 5:11 PM Care Teams Solar Sales Representative And Assessor Relationship Specialty Start Date End Date Disha Callejas MD PCP - General Family Medicine 04/27/20
== END 2024-12-15 10:30 | disposition home or self-care (01) ==
LOC: HO.HHCL 10:29
PROVIDERS: Visit Provider Internal Medicine
DX: R37 Sexual dysfunction, unspecified (principal)
CPT/HCPCS: 36415; 84403

== ENCOUNTER 2025-01-22 11:03 | Outpatient (REF) | payer MEDICAID, SELFPAY ==
--- OUTSIDE RECORDS SUMMARY | 2025-01-22 12:09 | XMS_ITS | Encounter Summary ---
Author Organization [facility] Address [address] [place] [address] Care Team Providers Care Adoption Services Manager Name Role Phone Kathy Hair MD Primary Care Provide r Reason for Visit * Reason Comments Med Refill Encounter Details Date Type Department Care Team ([facility] Contact Info) Description 01/10/2024 Refill [facility] [address] [place] [address] Annelise Joseph FNP [address] [place] [address] Social History Tobacco Use Types Packs/Day Years [...] Department Care Team (Late Contact Info) Description 03/04/2025 10:00 AM EDT Office Visit [facility] [address] [place] [address] Kathy Hair MD [address] [place] [address] documented as of this encounter Visit Diagnoses Not on filedocumented in this encounter Care Teams Adoption Services Manager Relationship Specialty Start Date End Date Kathy Hair MD [address] [place] [phone] PCP - General Internal Medicine 09/15/24 documented as of this encounter
--- OUTSIDE RECORDS SUMMARY | 2025-01-22 12:09 | XMS_ITS | Encounter Summary ---
Author Organization [facility] Address [address] [place] [address] Care Team Providers Care Residential Program Manager Name Role Phone Kathy Hair MD Primary Care Provide r Reason for Visit * Reason Comments Med Refill Encounter Details Date Type Department Care Team (Late Contact Info) Description 06/22/2024 Refill [facility] [address] [place] [address] Name, MD Wenceslao [address] [place] [address] Social History Tobacco Use Types Packs/Day Years [...] Care Team (Late st Contact Info) Description 03/04/2025 10:00 AM EDT Office Visit [facility] [address] [place] [address] Kathy Hair MD [address] [place] [address] documented as of this encounter Visit Diagnoses Not on filedocumented in this encounter Care Teams Residential Program Manager Relationship Specialty Start Date End Date Kathy Hair MD [address] [place] [phone] PCP - General Internal Medicine 09/15/24 documented as of this encounter
--- OUTSIDE RECORDS SUMMARY | 2025-01-22 12:09 | XMS_ITS | Encounter Summary ---
Author Organization [facility] Address [address] [place] [address] Care Team Providers Care Senior Physician Name Role Phone Kathy Hair MD Primary Care Provide r Reason for Visit * Reason Comments Sore Throat Encounter Details Date Type Department Care Team ([facility] st Contact Info) Description 01/22/2025 10:20 AM EDT Office Visit [facility] [address] [place] [address] Exposure to virus (Primary Dx); Throat pain in adult Social History Tobacco Use Types Packs/Day Years [...] housing situation today? I have kaye suresh 12/07/[address] you li ve. Do you have problems with any of the following? Pests such as bugs, ants, or mice 12/07/2024 Food Insecurity Answer Date Recorded Within the [...] Access Answer Date Recorded Internet Access Q1 Yes 12/07/2024 Internet Access Q2 I do not want or need it 11/21 Sex and Gender Information Value Date Recorded Sex Assigned at Male 07/16/2023 3:15 PM EDT Legal Sex Male 1:08 PM EDT Gender Identity Male 07/16/2023 3:15 PM EDT Sexual Orientation Straight 07/16/2023 3: 15 PM EDT documented as of this encounter Last Filed Vital Signs Vital Sign Reading Time Taken Comments Blood Pressure 134/79 01/22/2025 10:26 AM EDT Pulse 66 01/22/2025 10:26 AM EDT Temperature 36.9 ??C (98.4 ??F) 01/22/2025 10:26 AM E DT Respiratory Rate 18 01/22/2025 10:26 AM EDT Oxygen Saturation 96% 01/22/2025 10:26 AM EDT Inhaled Oxygen Concentration - - Weight 111 kg (244 lb 12.8 oz) 01/22/2025 10:26 AM EDT Height - - Body Mass Index 33.2 12/15/2024 9:50 AM EDT documented in this encounter Plan of Treatment Upcoming Encounters Date Type Department Care Team (Late st Contact Info) Description 03/04/2025 10:00 AM EDT Office Visit [facility] [address] [place] [address] Kathy Hair MD [address] [place] [address] Scheduled Orders Name Type Priority Associated Diagnoses Orde r Schedule Chlamydia/N. Gonorrhoeae RNA, TMA, Throat Microbiology Routine Throat pain in adult Ordered: 01/22/2025 Chlamydia/N. Gonorrhoeae RNA, TMA, Urogenitial Microbiology Routine Exposure to virus Expected: 01/22/2025 (Approximate), Expires: 01/22/2026 Hepatitis C Antibody with Reflex to HCV, RNA, Quantitative, Real-Time PCR Lab Routine Exposure to virus Expected: 01/22/2025 (Approximate), Expires: 01/22/2026 HIV-1/2 Antigen and Antibodies, Fourth Generation, with Reflexes Lab Routine Exposure to virus Expected: 01/22/2025 (Approximate), Expires: 01/22/2026 Syphilis Screen Lab Routine Exposure to virus Expected: 01/22/2025 (Approximate), Expires: 01/22/2026 documented as of this encounter Procedures Procedure Name Priority Date/Time Associated Diagnosis Comments POCT INFLUENZA B (ID NOW RAPID MOLECULAR) Routine 01/22/2025 10:53 AM EDT Throat pain in adult POCT INFLUENZA A (ID NOW RAPID MOLECULAR) Routine 01/22/2025 10:53 AM EDT Throat pain in adult POCT RAPID COVID ANTIGEN Routine 01/22/2025 10:53 AM EDT Throat pain in adult POCT RAPID STREP A Routine 01/22/2025 10 :53 AM EDT Throat pain in adult documented in this encounter Results * Influenza B (ID NOW Rapid Molecular) (01/22/2025 10:53 AM EDT) Influenza B Negative Negative, Indeterminate [facility] Swab 01/22/2025 10:5 3 AM EDT us Ward Dorsey MD POINT OF CARE TEST ENTER/EDIT OR DERABLES Final Result Performing Organization Address [facility]/ZIP Co de Phone Number [facility] [address] [place] [phone] * Influenza A (ID NOW Rapid Molecular) (01/22/2025 10:53 AM EDT) Influenza A Negative Negative, Indeterminate [facility] Swab 01/22/2025 10:5 3 AM EDT us Ward Dorsey MD POINT OF CARE TEST ENTER/EDIT OR DERABLES Final Result Performing Organization Address [facility]/ZIP Co de Phone Number [facility] [address] [place] [address] [phone] * POCT rapid strep A manually resulted (01/22/2025 10:53 AM EDT) Rapid Strep A Screen Negative Negative, None Detected [facility] Swab 01/22/2025 10:5 3 AM EDT Ward Dorsey MD POINT OF CARE TEST ENTER/EDIT OR DERABLES Final Result Performing Organization Address [facility] Co de Phone Number [facility] [address] [place] [phone] * POCT Rapid COVID Ag (01/22/2025 10:53 AM EDT) Rapid COVID Ag Negative [facility] Swab 01/22/2025 10:5 3 AM EDT Ward Dorsey MD POINT OF CARE TEST ENTER/EDIT OR DERABLES Final Result Performing Organization Address [facility] de Phone Number [facility] [address] [place] [phone] documented in this encounter Visit Diagnoses Diagnosis Exposure to virus- Primary Throat pain in adult documented in this encounter Additional Health Concerns Assessment Noted Time PHQ-9 Depression Total Score: 0 09/15/20 10:07 AM EST documented as of this encounter Care Teams Senior Physician Relationship Specialty Start Date End Date Kathy Hair MD [address] [place] [phone] PCP - General Internal Medicine 09/15/24 documented as of this encounter
--- OUTSIDE RECORDS SUMMARY | 2025-01-22 12:09 | XMS_ITS | Encounter Summary ---
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 EFFECTIVE SINCE 06/28/2023 documented in this encounter Plan of Treatment Upcoming Encounters Date Type Department Care Team (Late st Contact Info) Description 03/04/2025 10:00 AM EDT Office Visit [facility] [address] [place] [phone] Kathy Hair MD [address] [place], [place] [phone] documented as of this encounter Visit Diagnoses Not on filedocumented in this encounter Care Teams Windows Systems Admin Relationship Specialty Start Date End Date Kathy Hair MD [address] [place], [place] [phone] PCP - General Internal Medicine 09/15/24 documented as of this encounter
--- OUTSIDE RECORDS SUMMARY | 2025-01-22 12:09 | XMS_ITS | Encounter Summary ---
Author Organization [facility] Address [address] [place] [address] Care Team Providers Care Chief Technical Officer Name Role Phone Kathy Hair MD Primary Care Provide r Reason for Visit * Reason Comments Med Refill Encounter Details Date Type Department Care Team (Late Contact Info) Description 07/15/2024 Refill [facility] [address] [place] [phone] Kenan Mays MD [address] [place] [address] Essential hypertension Social History Tobacco Use Types [...] Description 03/04/2025 10:00 AM EDT Office Visit [facility] [address] [place] [phone] Kathy Hair MD [address] [place] [phone] documented as of this encounter Visit Diagnoses Diagnosis Essential hypertension Unspecified essential hypertension documented in this encounter Care Teams Chief Technical Officer Relationship Specialty Start Date End Date Kathy Hair MD [address] [place] [phone] PCP - General Internal Medicine 09/15/24 documented as of this encounter
--- OUTSIDE RECORDS SUMMARY | 2025-01-22 12:09 | XMS_ITS | Encounter Summary ---
Author Organization [employer] [facility] Address [address] [place] [address] Care Team Providers Care Steam Plant Control Room Operator Name Role Phone Kathy Hair MD Primary Care Provide r Reason for Visit * Reason Comments Med Refill Encounter Details Date Type Department Care Team (Late Contact Info) Description 07/15/2024 Refill [facility] [address] [place] [phone] Kenan Mays MD [address] [place] [address] Essential hypertension Social History Tobacco Use Types [...] Description 03/04/2025 10:00 AM EDT Office Visit [facility] [address] [place] [address] Kathy Hair MD [address] [place] [phone] documented as of this encounter Visit Diagnoses Diagnosis Essential hypertension Unspecified essential hypertension documented in this encounter Care Teams Steam Plant Control Room Operator Relationship Specialty Start Date End Date Kathy Hair MD [address] [place] [phone] PCP - General Internal Medicine 09/15/24 documented as of this encounter
--- OUTSIDE RECORDS SUMMARY | 2025-01-22 12:09 | XMS_ITS | Referral Summary ---
Author Organization [facility] Address [address] [place] [address] Care Team Providers Care Ironworker Machine Operator Name Role Phone Disha Callejas MD Primary Care Provider [phone] Allergies No known active allergies Medications latanoprost [...] Not on file Procedures * Due to [place] [employer] law, this organization might not be sharing negative HIV tests. Procedure Name Priority Date/Time Associated Diagnosis Comments COMPREHENSIVE METABOLIC PANEL Routine 07/19/2021 2:56 AM EDT from Last 3 Months or Most Recently Relevant to Health Maintenance Results * Due to [place] [employer] law, this organization might not be sharing negative HIV tests. * (ABNORMAL) Comprehensive Metabolic Panel (07/19/2021 2:56 AM EDT) NA 136 135 - 145 mmol/L 07/19/2021 3:39 AM EDT [facility] K 3.9 3.5 - 5.3 mmol/L 07/19/2021 3:39 AM EDT [facility] Cl 103 97 - 110 mmol/L 07/19/2021 3:39 AM EDT [facility] CO2 25 24 - 32 mmol/L 07/19/2021 3:39 AM EDT [facility] Anion Gap 8 5 - 15 07/19/2021 3:39 AM EDT [facility] Glucose 138(H) 70 - 99 mg/dL 07/19/2021 3:39 AM EDT [facility] Creatinine 0.99 0.60 - 1.30 mg/dL 07/19/2021 3:39 AM EDT [facility] eGFR Non- 88(L) >=90 mL/min/BS A 07/19/2021 3:39 AM [facility] eGFR >90 >=90 mL/min/BS A 07/19/2021 3:39 AM [facility] Comment: Units = mL/min/1.73 [...] 8.7 - 10.7 mg/dL 07/19/2021 3:39 AM [facility] Total Protein 7.3 6.0 - 8.0 g/dL 07/19/2021 3:39 AM [facility] Albumin 3.5 3.5 - 4.8 g/dL 07/19/2021 3:39 AM [facility] Bilirubin, Total 0.2(L) 0.3 - 1.2 mg/dL 07/19/2021 3:39 AM [facility] Alkaline Phosphatase 46 30 - 115 U/L 07/19/2021 3:39 AM [facility] AST 13 10 - 40 U/L 07/19/2021 3:39 AM [facility] ALT 16 10 - 40 U/L 07/19/2021 3:39 AM EDT [facility] BUN 29(H) 7 - 23 mg/dL 07/19/2021 3:39 AM EDT [facility] Blood Structure of peripheral vein / Unknown Venipuncture / Unknown 07/19/2021 2:56 AM EDT 07/19/2021 3:09 AM EDT us Marietta Wilhelm DAYTIME CAREGIVER LAB BLOOD ORDERABLES Final Result [facility] [address] [place] [address], from Last 3 Months or Most Recently Relevant to Health Maintenance Insurance [employer] Advance Directives * Full Code (Latest Code Status on File) Date Activated Date Inactivated Comments 07/15/2021 3:20 AM 07/19/2021 5:11 PM Care Teams Ironworker Machine Operator Relationship Specialty Start Date End Date Disha Callejas MD PCP - General Family Medicine 04/27/20
--- OUTSIDE RECORDS SUMMARY | 2025-01-22 12:09 | XMS_ITS | Encounter Summary ---
Author Organization [facility] Address [address] [place] [address] Care Team Providers Care Tightening Machine Operator Name Role Phone Kathy Hair MD Primary Care Provide r Reason for Visit * Reason Comments Med Refill Encounter Details Date Type Department Care Team (Late Contact Info) Description 07/15/2024 Refill [facility] [address] [place] [phone] Kenan Mays MD [address] [place] [address] Essential hypertension Social History Tobacco Use Types [...] Description 03/04/2025 10:00 AM EDT Office Visit [facility] [address] [place] [phone] Kathy Hair MD [address] [place] [phone] documented as of this encounter Visit Diagnoses Diagnosis Essential hypertension Unspecified essential hypertension documented in this encounter Care Teams Tightening Machine Operator Relationship Specialty Start Date End Date Kathy Hair MD [address] [place] [phone] PCP - General Internal Medicine 09/15/24 documented as of this encounter
--- OUTSIDE RECORDS SUMMARY | 2025-01-22 12:09 | XMS_ITS | Encounter Summary ---
Author Organization [facility] Address [address] [facility] [address] [place] [address] Care Team Providers Care Manager Mechanical Maintenance Name Role Phone Kathy Hair MD Primary Care Provide r Reason for Visit * Reason Comments Med Refill Encounter Details Date Type Department Care Team (Late Contact Info) Description 04/21/[address] [facility] [address] [place] [phone] Name, MD Wenceslao [address] [place] [phone] Essential hypertension Social History Tobacco Use Types [...] Description 03/04/2025 10:00 AM EDT Office Visit [facility] [address] [place] [phone] Kathy Hair MD [address] [place] [phone] documented as of this encounter Visit Diagnoses Diagnosis Essential hypertension Unspecified essential hypertension documented in this encounter Care Teams Manager Mechanical Maintenance Relationship Specialty Start Date End Date Kathy Hair MD [address] [place] [phone] PCP - General Internal Medicine 09/15/24 documented as of this encounter
--- OUTSIDE RECORDS SUMMARY | 2025-01-22 12:09 | XMS_ITS | Clinical Summary ---
Author Organization [facility] Address [address] [place] [address] Care Team Providers Care Talend Developer Name Role Phone Kathy Hair MD Primary Care Provide r Allergies No known active allergies Medications cyclobenzaprine (Flexeril) 10 MG tablet Take 1 tablet (10 mg) by mouth 3 times daily for 10 days. 30 tablet 023 Active naproxen (Naprosyn) 500 MG tablet TAKE 1 TABLET BY MOUTH TWICE A DAY 60 tablet 024 Active metoprolol succinate XL (Toprol-XL) 25 MG 24 hr tabletIndicatio ns:Essential hypertension TOME 1 TABLETA POR VIA ORAL TODOS LOS CALDERON *DO NOT CRUSH/CHEW* 90 tablet 024 Active lisinopril 40 MG tabletIndicatio ns:Essential hypertension Take 1 tablet (40 mg) by mouth Once per day. 90 tablet 024 Active naproxen (Naprosyn) 250 MG tablet Take 1 tablet (250 mg) by mouth if needed in the morning and at bedtime (pain). 20 tablet 024 2024 Active lidocaine (Lidoderm) 5 % patch Apply 1 patch topically Once per day. Remove & discard patch within 12 hours or as directed by MD. 30 patch 2 024 2024 Active lisinopril 40 MG tabletIndicatio ns:Essential hypertension Take 1 tablet (40 mg) by mouth Once per day. 90 tablet 1 024 Active hydroCHLOROthia zide (HYDRODiuril) 25 MG tabletIndicatio ns:Essential hypertension Take 1 tablet (25 mg) by mouth Once per day. PLEASE DISCONTINUE CHLORTHALIDONE 25mg 90 tablet 1 Active metoprolol succinate XL (Toprol XL) 25 MG 24 hr tabletIndicatio ns:Essential hypertension Take 1 tablet (25 mg) by mouth Once per day. Do not crush or chew. 90 tablet 1 Active tadalafil (Cialis) 10 MG tabletIndicatio ns:Erectile dysfunction, unspecified erectile dysfunction type Take 1 tablet (10 mg) by mouth if needed each day for erectile dysfunction. TAKE 1 TABLET (10 MG) BY MOUTH IF NEEDED EACH DAY FOR ERECTILE DYSFUNCTION. - NOT COVERED 10 tablet 2 Active FREESTYLE LITE test stripIndication s:Newly diagnosed diabetes ([facility]) Use to test blood sugar 1 times daily 100 each 12 024 2024 Active Lancets miscIndications :Newly diagnosed diabetes ([facility]) Use to test blood sugar 1 times daily 100 each Active Alcohol Swabs 70 % padsIndications :Newly diagnosed diabetes ([facility]) Use to test blood sugar 1 times daily 100 each Active Blood Glucose Monitoring Suppl (FreeStyle [place] Lite) w/Device kitIndications: Newly diagnosed diabetes ([facility]) Use to test blood sugar 1 times daily 1 kit Active tadalafil (Cialis) 10 MG tablet Take 1 tablet (10 mg) by mouth if needed each day for erectile dysfunction. 20 tablet 1 Active ciclopirox (Penlac) 8 % solutionIndicat ions:Onychomyco sis Apply topically at bedtime. 6 mL 2 Active atorvastatin (Lipitor) 40 MG tabletIndicatio ns:History of atrial fibrillation TAKE 1 TABLET (40 MG) BY MOUTH ONCE PER DAY. TAKE 1 TABLET BY MOUTH EVERY DAY 90 tablet 025 2024 Active atorvastatin (Lipitor) 40 MG tabletIndicatio ns:History of atrial fibrillation Take 1 tablet (40 mg) by mouth Once per day. TAKE 1 TABLET BY MOUTH EVERY DAY 90 tablet 024 2024 Discontinued Active Problems Problem Noted Date Diagnosed Date Newly diagnosed diabetes 12/15/2024 Assessment & Plan (12/15/2024 1:47 PM EDT): Diabetes is: controlled - Lab Results Component Value Date HGBA1C 6.5 (H) 09/15/2024 - Lab Results Component Value Date CREATININE 0.87 09/15/2024 -Changes: I will discontinue his metformin and encouraged him to continue with diabetic diet and weight reduction - Diabetic eye exam: Up-to-date - Diabetic foot exam: Pending - Continue lifestyle modifications - Continue current medications - Follow up: 3 months Onychomycosis 12/15/2024 Sexual dysfunction 12/15/2024 Clogged ear, bilateral 12/15/2024 Assessment & Plan (12/15/2024 1:45 PM EDT): Debrox eardrops prescribed today Return in 1 week for nurse visit for ear lavage Hemoptysis 09/15/2024 Family history of colon cancer 09/15/2024 Hypertension 04/21/2024 Assessment & Plan (12/15/2024 1:47 PM EDT): Blood pressure seems to be under control, I advised low-sodium diet and to continue with weight reduction Continue with hydrochlorothiazide 25 mg daily and lisinopril 40 mg daily Continue with metoprolol 25 mg daily Assessment & Plan (09/15/2024 1:56 PM EST): [...] History of renal carcinoma 10/02/2023 History of TN (myocardial infarction) 10/02/2023 Encounters Date Type Department Care Team Description 01/22/2025 10:20 AM EDT Office Visit [facility] [address] [place] [phone] Exposure to virus (Primary Dx); Throat pain in adult 12/24/2024 Refill [facility] [address] [place] [phone] Kathy Hair MD History of atrial fibrillation 12/23/2024 9:30 AM EDT Clinical Support [address] [address] Binta Abrams RN Clogged ear, bilateral 12/23/2024 Travel 12/15/2024 10:00 AM EDT Office Visit [address] [phone] Kathy Hair MD Newly diagnosed diabetes (CMS/HCC) (Primary Dx); Hypertension, unspecified type; Onychomycosis; Sexual dysfunction; Clogged ear, bilateral 12/15/2024 Travel 12/14/[address] [address] Kathy Hair MD Chart Prep 12/07/2024 Patient Outreach [address] [address] Kathy Hair MD Care Coordination ([facility] outreach SDOH pest control - referral completed ) 12/07/2024 Patient Outreach [address] [phone] Kathy Hair MD Pre-visit Planning (SDOH screening positive and tobacco screening negative) 12/04/2024 Population Health Risk Score [facility] [address] [place] [phone] Provider, Population Health Generic 11/27/[address] [address] Kathy Hair MD 11/13/2024 Orders Only [facility] External Provider, [facility] from Last 3 Months Social History Tobacco [...] 12.8 oz) 01/22/2025 10:26 AM EDT Height 182.9 cm (6') 12/15/2024 9:50 AM EDT Body Mass Index 33.2 12/15/2024 9:50 AM EDT Plan of Treatment Upcoming Encounters Date Type Department Care Team (Late st Contact Info) Description 03/04/2025 10:00 AM EDT Office Visit [facility] [address] [place] [address] Kathy Hair MD [address] [place] [address] Health Maintenance Due Date Last Done Comments [...] 09/15/2024 Lipid Panel 09/15/2025 09/15/2024 SDOH Screening 12/07/2025 12/07/2024 Tobacco Screening 12/15/2025 12/15/2024 RSV Patients and Patients Aged 60 years [...] :53 AM EDT Throat pain in adult POCT RAPID COVID ANTIGEN Routine 01/22/2025 10:53 AM EDT Throat pain in adult LA REMOVAL IMPACTED CERUMEN IRRIGATION/LVG UNILAT Routine 12/23/2024 9:57 AM EDT Clogged ear, bilateral TESTOSTERONE, TOTAL, MALES (ADULT), IA Routine 12/15/2024 10:32 AM EDT Sexual dysfunction POCT GLUCOSE Routine 12/15/2024 10:12 AM EDT Newly diagnosed diabetes (CMS/HCC) CT CHEST WO CONTRAST Routine 11/13/2024 8:54 AM EST HEPATITIS C AB W/REFL TO HCV RNA, [...] of renal carcinoma from Last 3 Months or Most Recently Relevant to Health Maintenance Results * Influenza B (ID NOW Rapid Molecular) (01/22/2025 10:53 AM EDT) Influenza B Negative Negative, Indeterminate [facility] Swab 01/22/2025 10:5 3 AM EDT us Ward Dorsey MD POINT OF CARE TEST ENTER/EDIT OR DERABLES Final Result Performing Organization Address [facility]/ZIP Co de Phone Number [facility] [address] [place] [phone] * Influenza A (ID NOW Rapid Molecular) (01/22/2025 10:53 AM EDT) Influenza A Negative Negative, Indeterminate [facility] Swab 01/22/2025 10:5 3 AM EDT us Ward Dorsey MD POINT OF CARE TEST ENTER/EDIT OR DERABLES Final Result Performing Organization Address [facility]/ZIP Co de Phone Number [facility] [address] [place] [phone] * POCT Rapid COVID Ag (01/22/2025 10:53 AM EDT) Rapid COVID Ag Negative [facility] Swab 01/22/2025 10:5 3 AM EDT us Ward Dorsey MD POINT OF CARE TEST ENTER/EDIT OR DERABLES Final Result Performing Organization Address [facility]/ZIP Co de Phone Number [facility] [address] [place] [phone] * POCT rapid strep A manually resulted (01/22/2025 10:53 AM EDT) Rapid Strep A Screen Negative Negative, None Detected [facility] Swab 01/22/2025 10:5 3 AM EDT us Ward Dorsey MD POINT OF CARE TEST ENTER/EDIT OR DERABLES Final Result [facility] [address] [place] [phone] * LA REMOVAL IMPACTED CERUMEN IRRIGATION/LVG UNILAT (12/23/2024 9:57 AM EDT) Narrative Binta Abrams RN - 12/23/2024 9:57 AM EDT Binta Abrams RN ? 12/23/2024 10:10 AM Ear Cerumen Removal Date/Time: 12/23/2024 9:57 AM Performed by: Binta Abrams RN Authorized by: Kathy Jennings MD ?? Consent: ??Consent obtained: ??Verbal ??Consent given by: ??Patient ??Risks, benefits, and alternatives were discussed: yes ?? [place] protocol: ??Patient identity confirmed: ??Verbally with patient Procedure details: ??Location: ??L ear and R ear ??Procedure type: irrigation ?Procedure outcomes: cerumen removed (removed from right ear, partially removed from left ear) ?? Post-procedure details: ??Inspection: ??Some cerumen remaining (left ear) ??Hearing quality: ??Improved (right ear) ??Procedure completion: ??Tolerated well, no immediate complications us Kathy Jennings MD IN CLINIC/BEDSIDE ORD ERABLES Final Result * Testosterone, Total, males (Adult), IA (12/15/2024 10:32 AM EDT) Testosterone, Total 279 250 - 1100 ng/dL [facility] Comment:For additional infor saba, please refer tohttp://education.[employer]/faq/GupupRyouivwnxnqhUWHLEMWOU494(This link is being provided for informational/educational purposes only.)This test was developed and its analytical performancecharacteristics have been determined by [facility] [place], [place]. It hasnot been cleared or approved by the U.S. Food and DrugAdministration. This assay has been validated pursuantto the CLIA regulations and is used for clinicalpurposes.THIS TEST WAS PERFORMED AT:[employer] [place] [address]WVVIKCZHERNANDO DEVRIES MD,PHD Blood Venous blood specimen / Unknown 12/15/2024 10:32 AM EDT 12/15/2024 11:23 AM EDT Kathy Jennings MD LAB BLOOD ORDERABLES Final Result Performing Organization Address City/State/[facility] Co de Phone Number [facility] [address] [place] [phone] * POCT Glucose (12/15/2024 10:12 AM EDT) [facility] Signature Glucose Blood, POC 111 60 - 200 mg/dL QC Media Lot # [id number] Lot# Expiration Date Blood Capillary blood specimen / Unknown 12/15/2024 10:12 AM EDT Kathy Jennings MD POINT OF CARE TEST EN TER/EDIT ORDERABLES Final Result * CT Chest w/o Contrast (11/13/2024 8:54 AM EST) Anatomical Region Laterality Modality Body, Chest Computed Tomogra phy 11/13/2024 8:54 AM EST Narrative 11/13/2024 8:55 AM EST ? [facility] ?[address] ?[place] [address] ? CT Scan Report ? Signed with Addenda ? Patient: Javier,Jai ?MR#: [id number] ?? [id number] ? : 1970 ?Acct:[id number] ? Age/Sex: 54 / M ?ADM Date: 02/21/25 ? Loc: HO.CT ? Attending Dr: Terrence Chris MD ? Ordering Physician: Terrence Chris MD ?? Date of Service: 11/13/24 ?? Procedure(s): CT chest wo IV con ?? Accession Number(s): [id number] ? cc: Kathy Hair MD; Terrence Chris MD ? Report Number: ?? [id number]: Total DLP = ??231.00 mGy-cm ?ADDENDUM ?? [...] DD/ 0854 ? TD/TT: 11/13/24 0854 ? Rapid Extractor Operator: ? Procedure Note Donvishal, Image - 11/13/[address] [address] [address] Scan Report Signed with Razia Patient: Jerrell Herrera#: [id number] : 1970Acct:[id number] Age/Sex: 54 / MADM Date: 11/13/24 Loc: HO.CT Attending Dr: Terrence Chris MD Ordering Physician: Terrence Chris MD Date of Service: 11/13/24 Procedure(s): CT chest wo IV con Accession Number(s): [id number] cc: Kathy Hair MD; Terrence Chris MD Report Number: [id number]: Total DLP = 231.00 mGy-cm ADDENDUM This [...] signed by John Yarbrough MD in OV> 11/13/245 Addendum Cosigned By: DD/ TD/TT: 11/13/24 CLINICAL [...] Yarbrough MD in OV> 11/13/24 0855 DD/ TD/TT: 11/13/2454 Rapid Extractor Operator: [facility] External Provider IMG CT PROCEDURES Edited Result - Final * Hepatitis C Antibody with Reflex to HCV, RNA, Quantitative, Real-Time PCR (09/15/2024 10:59 AM EST) Hepatitis C Antibody Nonreactive Nonreactive [facility] Comment:Antibodies to HCV no t detected; does not exclude early acuteHCV infection. Blood Venous blood specimen / Unknown 09/15/2024 10:59 AM EST 09/15/2024 1:13 PM EST Kathy Jennings MD LAB BLOOD ORDERABLES Final Result [facility] [address] [place] [phone] * HIV-1/2 Antigen and Antibodies, Fourth Generation, with Reflexes (09/15/2024 10:59 AM EST) HIV AB/AG Nonreactive Nonreactive [facility] Comment:HIV-1 p24 Ag and/or HIV-1/HIV-2 Ab not detected.A test result that is nonreactive does not exclude thepossibility of exposure to or infection with HIV-1 and/orHIV-2. Nonreactive results in this assay for individualswith prior exposure to HIV-1 and/or HIV-2 may be due toantigen and antibody levels that are below the limit ofdetection of this assay.The [employer] HIV Ag/Ab Combo assay result andsupplemental assay results should be interpreted inconjunction with the patient's clinical presentation,history and other laboratory results. If the results areinconsistent with clinical evidence, additional testing issuggested to confirm the result. Blood Venous blood specimen / Unknown 09/15/2024 10:59 AM EST 09/15/2024 1:13 PM EST us Kathy Jennings MD LAB BLOOD ORDERABLES Final Result Performing Organization Address [facility]/ZIP Co de Phone Number [facility] [address] [place] [phone] * (ABNORMAL) Hemoglobin A1c (09/15/2024 10:59 AM EST) Hemoglobin A1c 6.5(H) <6.0 % [facility] Comment:Hemoglobin A1C Refer ence Range Adults: 4.8 - 6.0 % Non diabetic: < 6.0 % Goal: < 7.0 %Additional Action Suggested: > 8.0 %Note: Hemoglobin A1c results are invalid for patients with abnormal amounts of HbF. Blood transfusions may impact the HbA1c concentration in the patient sample. Estimated Average Glucose 140 mg/dL [facility] Comment:eAG = Estimated ave rage glucose which is %A1C expressed asaverage glucose, using the formula of the N4L-HspfdujLelwxnu Glucose study (ADAG), Diabetes Care, Vol.31,#8,Apr. 2007 Blood Venous blood specimen / Unknown 09/15/2024 10:59 AM EST 09/15/2024 1:13 PM EST us Kathy Jennings MD LAB BLOOD ORDERABLES Final Result Performing Organization Address [facility]/ZIP Co de Phone Number [facility] [address] [place] [phone] * (ABNORMAL) Lipid Panel, Standard (09/15/2024 10:59 AM EST) Triglycerides 134 <150 mg/dL [facility] Comment:Desirable Triglyceri de: less than 150 mg/dLBorderline High Triglyceride 150-199 mg/dLHigh Triglyceride: 200-499 mg/dLVery High Triglyceride: greater than or equal to 5OO mg/dL Cholesterol 180 <200 mg/dL [facility] Comment:Desirable Cholestero l: less than 200 mg/dLBorderline High Cholesterol: 200-239 mg/dLHigh Cholesterol: greater than 239 mg/dL LDL Cholesterol Calculated 119(H) <100 mg/dL [facility] Comment:Desirable LDL: less than 100 mg/dLNear Optimal/Above Optimal LDL: 110- 129 mg/dLBorderline High LDL: 130-159 mg/dLHigh LDL: 160-189 mg/dLVery High LDL: greater than or equal to 190 mg/dL HDL Cholesterol 35(L) >40 mg/dL [facility] Comment:Desirable HDL: great er than 40 mg/dL Note: This HDL assay may give artificially low results in patients with liver disease. Blood Venous blood specimen / Unknown 09/15/2024 10:59 AM EST 09/15/2024 1:13 PM EST us Kathy Jennings MD LAB BLOOD ORDERABLES Final Result [facility] [address], [place] [phone] from Last 3 Months or Most Recently Relevant to Health Maintenance Insurance [facility] C3 Care Teams Talend Developer Relationship Specialty Start Date End Date Kathy Hair MD [address] [place] [address] PCP - General Internal Medicine 09/15/24
--- OUTSIDE RECORDS SUMMARY | 2025-01-22 12:09 | XMS_ITS | Clinical Summary ---
Author Organization [facility] Address [address] [place] [address] Care Team Providers Care Rock Breaker Name Role Phone Disha Callejas MD Primary [...] - 2023-2 5 season) 2024 02/01/2021, 01/11/2021 Alcohol/Substance Use Screening 09/23/2024 Depression Screening and Follow-Up 09/23/2024 Social Drivers of Health Yan[place] ual Screening 09/23/2024 Influenza Vaccine (Season Ended) 2025 06/06/2020, 07/23/2018, 07/22/2017, Additional history exists DTaP,Tdap,and Td Vaccines (2 - Td or Tdap) 06/16/2030 06/16/2020, 09/30/2010, 09/30/2010 RSV Vaccine (60+ years old a nd patients) (1 - 1-dose 75+ series) 2045 Procedures * Due to [place] state law, this organization might not be sharing negative HIV tests. Procedure Name Priority Date/Time Associated Diagnosis Comments COMPREHENSIVE METABOLIC PANEL Routine 07/19/2021 2:56 AM EDT from Last 3 Months or Most Recently Relevant to Health Maintenance Results * Due to [place] state law, this organization might not be sharing negative HIV tests. * (ABNORMAL) Comprehensive Metabolic Panel (07/19/2021 2:56 AM EDT) NA 136 135 - 145 mmol/L 07/19/2021 3:39 AM EDT [facility] K 3.9 3.5 - 5.3 mmol/L 07/19/2021 3:39 AM EDT [facility] Cl 103 97 - 110 mmol/L 07/19/2021 3:39 AM EDT [facility] CO2 25 24 - 32 mmol/L 07/19/2021 3:39 AM EDT [facility] Anion Gap 8 5 - 15 07/19/2021 3:39 AM EDT [facility] Glucose 138(H) 70 - 99 mg/dL 07/19/2021 3:39 AM EDT [facility] Creatinine 0.99 0.60 - 1.30 mg/dL 07/19/2021 3:39 AM EDT [facility] eGFR Non- 88(L) >=90 mL/min/BS A 07/19/2021 3:39 AM EDT [facility] eGFR >90 >=90 mL/min/BS A 07/19/2021 3:39 AM EDT [facility] Comment: Units = mL/min/1.73 [...] - 10.7 mg/dL 07/19/2021 3:39 AM EDT [facility] Total Protein 7.3 6.0 - 8.0 g/dL 07/19/2021 3:39 AM EDT [facility] Albumin 3.5 3.5 - 4.8 g/dL 07/19/2021 3:39 AM EDT [facility] Bilirubin, Total 0.2(L) 0.3 - 1.2 mg/dL 07/19/2021 3:39 AM EDT [facility] Alkaline Phosphatase 46 30 - 115 U/L 07/19/2021 3:39 AM EDT [facility] AST 13 10 - 40 U/L 07/19/2021 3:39 AM EDT [facility] ALT 16 10 - 40 U/L 07/19/2021 3:39 AM EDT [facility] BUN 29(H) 7 - 23 mg/dL 07/19/2021 3:39 AM EDT [facility] Blood Structure of peripheral vein / Unknown Venipuncture / Unknown 07/19/2021 2:56 AM EDT 07/19/2021 3:09 AM EDT [facility] [employer] LAB BLOOD ORDERABLES Final Result [facility] [address] [place] [address], from Last 3 Months or Most Recently Relevant to Health Maintenance Insurance [employer] Advance Directives * Full Code (Latest Code Status on File) Date Activated Date Inactivated Comments 07/15/2021 3:20 AM 07/19/2021 5:11 PM Care Teams Rock Breaker Relationship Specialty Start Date End Date Disha Callejas MD PCP - General Family Medicine 04/27/20
--- OUTSIDE RECORDS SUMMARY | 2025-01-22 12:10 | XMS_ITS | Data Portability ---
Author Organization [place] - [facility] Address [address] [place] [address] Care Team Providers Care Complaint Evaluation Officer Name Role Phone DISHA CALLEJAS Primary Care Provider [phone] DISHA CALLEJAS Referring Provider [phone] Assessment No assessment recorded. Plan of Treatment Reminders Order Date Submit Date Provider Last Modified By Organization Details Last Modified Time Details Appointments None recorded. Lab urinalysis, dipstick [address] ([facility]), [address], [place], [address], 08:13:50 culture, urine 2021 [facility], [address] [place], [address], 10:17:56 HbA1c (hemoglobin A1c), blood 2021 [email or web address] [facility], [address] [place], [address], 10:40:35 CMP, serum or plasma 2021 [facility], [address] [place], [address], 17:17:13 lipid panel, serum 2021 [facility], [address] [place], [address], 2 17:17:14 Referral gastroenter ologist referral 2021 022 [facility] [place] [address] - Gi, [address] [facility], [address], [place], [address], 08:26:45 nutritionis t/dietitian referral 2020 021 [email or web address] 4 [facility] (Nutrition Services), [address] [place], [address], 15:42:35 Procedures None recorded. Surgeries None recorded. Imaging US, kidney - right kidney 2021 022 [facility] (Central Scheduling), [address] [place], [address], 2 08:54:00 Medication Orders diclofenac 1 % topical gel 2021 022 [facility]/Pharmacy #[id number], [address] [place], [place], [id number], 2 12:33:58 metronidazo le 500 mg tablet [address]/Pharmacy #[id number], [address] [place], [place], [id number], 13:50:46 Cipro 500 mg tablet [address]/Pharmacy #[id number], [address] [place], [place], [id number], 2 13:50:40 Patient Targets Encounter Date Encounter Id Patient Goals Patient Target Last Modified By Organization Details Last Modified Time Goals:1. Promote weight loss of 1# per week.2. Promote BGlu management with HbA1C <5.7%3. Promote lipid panel WNL.4. Promote regular physical activity. Not available 12/29/2021 11:18:47 Patient Instructions Encounter Date Encounter Id Patient Instructions Last Modified By Organization Details Last Modified Time 12/06/2021 [id number] 2 month f/u or sooner if needed [...] Not available 12/06/2021 10:28:42 Reason for Referral Test Rider/dietitian Refer ral for Prediabetes Referring Physician: Disha Callejas [facility], Encounter Date: 08/02/2021 Brown Sourer Referral for Hematemesis Referring Physician: Disha Callejas [facility], Encounter Date: 10/26/2021 Results Created [...] Consi stent with Diabe ras Not Available [facility] Department [address] [place], [address] 10/26/2021 16:50:52 10/26/1910/26/2021 COMPR EHENS MACIE MET. PANEL sodium 136 mmol/ L 136-14 5 normal Not Available [facility] Department [address] [place], [address] 10/26/2021 17:17:12 10/26/19 22 10/26/2021 COMPR EHENS MACIE MET. PANEL potassium 4.0 mmol/ L 3.5-5. 1 normal Not Available [facility] Department [address] [place], [address] 10/26/2021 17:17:12 10/26/19 22 10/26/2021 COMPR EHENS MACIE MET. PANEL chloride 100 mmol/ L 98-107 normal Not Available [facility] Department [address] [place], [address] 10/26/2021 17:17:12 10/26/19 22 10/26/2021 COMPR EHENS MACIE MET. PANEL carbon dioxide 25.3 mmol/ L 22-29 normal Not Available [facility] Department [address] [place], [address] 10/26/2021 17:17:12 10/26/19 22 10/26/2021 COMPR EHENS MACIE MET. PANEL anion gap 15 mmol/ L 10-20 normal Not Available [facility] Department [address] [place], [address] 10/26/2021 17:17:12 10/26/19 22 10/26/2021 COMPR EHENS MACIE MET. PANEL blood urea nitrogen 16 mg/dL 6-20 normal Not Available [facility] Laboratory Department [address] [place], [address] 10/26/2021 17:17:12 10/26/19 22 10/26/2021 COMPR EHENS MACIE MET. PANEL creatinine 0.79 mg/dL 0.70-1 .2 normal Not Available [facility] Department [address] [place], [address] 10/26/2021 17:17:12 10/26/19 22 10/26/2021 COMPR EHENS [...] under the age of 18 Not Available [facility] Department [address] [place] [address], [address] 10/26/2021 17:17:12 10/26/19 22 10/26/2021 COMPR EHENS MACIE MET. PANEL glucose 116 mg/dL 70-106 high Not Available [facility] Department [address] [place] [address], [address] 10/26/2021 17:17:12 10/26/19 22 10/26/2021 COMPR EHENS MACIE MET. PANEL calcium 9.4 mg/dL 8.6-10 .3 normal Not Available [facility] Department [address] [place] [address], [address] 10/26/2021 17:17:12 10/26/19 22 10/26/2021 COMPR EHENS MACIE MET. PANEL bilirubin total 0.4 mg/dL 0.2-1. 2 normal Not Available [facility] Department [address] [place] [address], [address] 10/26/2021 17:17:12 10/26/19 22 10/26/2021 COMPR EHENS MACIE MET. PANEL aspartate amino transferase 23 U/L 5-40 normal Not Available [facility] Laboratory Department [address] [place] [address], [address] 10/26/2021 17:17:12 10/26/19 22 10/26/2021 COMPR EHENS MACIE MET. PANEL alanine aminotransfe rase 27 U/L 5-41 normal Not Available [facility] Department [address] [place], [address] 10/26/2021 17:17:12 10/26/19 22 10/26/2021 COMPR EHENS MACIE MET. PANEL total protein 7.1 g/dL 6.4-8. 3 normal Not Available [facility] Department [address] [place] [address], [address] 10/26/2021 17:17:12 10/26/19 22 10/26/2021 COMPR EHENS MAICE MET. PANEL albumin level 4.4 g/dL 3.5-5. 2 normal Not Available [facility] Department [address] [place] [address], [address] 10/26/2021 17:17:12 10/26/19 22 10/26/2021 COMPR EHENS MACIE MET. PANEL globulin 2.7 gm/dL 2.0-3. 5 normal Not Available [facility] Department [address] [place], [address] 10/26/2021 17:17:12 10/26/19 22 10/26/2021 COMPR EHENS MACIE MET. PANEL albumin globulin ratio 1.6 % 1.1-2. 5 normal Not Available [facility] Department [address] [place], [address] 10/26/2021 17:17:12 10/26/19 22 10/26/2021 COMPR EHENS MACIE MET. PANEL alkaline phosphatase 60 U/L 40-129 normal Not Available [facility] Department [address] [place] [address], [address] 10/26/2021 17:17:12 10/26/19 22 10/26/2021 LIPID PANEL WITH REFLE X triglyceride s w/ reflex LDL 208 mg/dL 30-150 high Refer ence Range s: <150 mg/dl Faby l 150-1 99 mg/dl Borde rline High 200-4 99 mg/dl High >500 mg/dl Very High Not Available [facility] Department [address] [place] [address], [address] 10/26/2021 17:17:13 10/26/19 22 10/26/2021 LIPID PANEL WITH REFLE X cholesterol 148 mg/dL 100-20 0 normal Not Available [facility] Department [address] [place] [address], [address] 10/26/2021 17:17:13 10/26/19 22 10/26/2021 LIPID PANEL [...] mg/dL Very high >190 mg/dL Not Available [facility] Department [address] [place] [address], [address] 10/26/2021 17:17:13 10/26/19 22 10/26/2021 LIPID PANEL WITH REFLE X HDL cholesterol 37.9 mg/dL 40-60 low Major risk facto r for CHD: <40 mg/dL Negat macie risk facto r for CHD: >=60 mg/dL Not Available [facility] Department [address] [place] [address], [address] 10/26/2021 17:17:13 10/26/19 22 10/26/2021 LIPID PANEL WITH REFLE X chol HDL ratio 3.91 Risk CHOL/ HDL CHOL/ HDL Ratio Male Femal e 1/2 AVERA GE 3.43 3.27 AVERA GE 4.97 4.44 2 X AVERA GE 9.55 7.05 3 X AVERA GE 23.39 11.04 Not Available [facility] Department [address] [place] [address], [address] 10/26/2021 17:17:13 12/06/19 22 12/05/2021 URINE CULTU [...] ----- -- PATIE NT: Nancy Wilcox ACCT: [id number] [facility] U: [id number] AGE/S X: 51/M ROOM: RE12/[address]: Aurelia carver : 05[birth year] BED: DIS: STATU S: DEP CLI TLOC: ----- ----- ----- ----- ----- ----- ----- ----- ----- ----- ----- ----- ----- ----- ----- ----- ----- ----- -- SPEC #: [id number] LUCRECIA: 12/05-U NK STATU S: COMP REQ #: [id number] RECD: 12/05- [address]: Aurelia carver [facility] E: Caleb mullen ENTR: 12/05- 751 OT [...] -- END OF REPOR T Not Available [facility] Department [address], [place], [address] 12/07/2021 10:17:56 12/06/19 22 12/05/2021 urina lysis , dipst ick SPECIFIC GRAVITY 1.010 Not Available [facility] ([facility]) [address] [place], [address], 12/05/2021 08:06:56 12/06/19 22 12/05/2021 urina lysis , dipst ick PH 7.0 Not Available [facility] ([facility]) [address] [place], [address], 12/05/2021 08:06:56 12/06/19 22 12/05/2021 urina lysis , dipst ick LEUKOCYTES Neg Not Available [facility] ([facility]) [address] [place], [address], 12/05/2021 08:06:56 12/06/19 22 12/05/2021 urina lysis , dipst ick NITRITE Neg Not Available [facility] ([facility]) [address] [place], [address], 12/05/2021 08:06:56 12/06/19 22 12/05/2021 urina lysis , dipst ick PROTEIN Neg Not Available [facility] ([facility]) [address] [place], [address], 12/05/2021 08:06:56 12/06/19 22 12/05/2021 urina lysis , dipst ick GLUCOSE Neg Not Available [facility] ([facility]) [address] [place], [address], 12/05/2021 08:06:56 12/06/19 22 12/05/2021 urina lysis , dipst ick KETONE Neg Not Available [facility] ([facility]) [address], [place], [address], 12/05/2021 08:06:56 12/06/19 22 12/05/2021 urina lysis , dipst ick UROBILINOGEN Normal Not Available [facility] ([facility]) [address], [place], [address], 12/05/2021 08:06:56 12/06/19 22 12/05/2021 urina lysis , dipst ick BILIRUBIN Neg Not Available [facility] ([facility]) [address] [place], [address], 12/05/2021 08:06:56 12/06/19 22 12/05/2021 urina lysis , dipst ick BLOOD Neg Not Available [facility] ([facility]) [address], [place], [address], 12/05/2021 08:06:56 12/07/19 22 12/06/2021 [facility] [address] [facility] [place] [address] Ultras ound Report Signed Patien t: Sarabjit Castelan MR#: [id number] Acct:H [id number] Age/Se x: 51 / M ADM Date: Loc: [facility] VILLATORO Attend ing Dr: Disha lilly MD Orderbrent Bowie kei: Disha lilly Date of Servic e: Proced ure(s) : US renal BI Access ion Number (s): [id number] H cc: Disha lilly EXAM: US renal [...] Transc riptio nist: [email or web address] [facility] [address] [place] [address], [address], 12/08/2021 08:15:53 Result Notes None recorded. Problems Name Problem SNOMED Code Status Onset Date Resolution Date Notes Provider Name and Address Organization Details Recorded Time Benign essential hypertensi on 0358043 Active 2019 Not Available [facility] 0 23:48:14 Hematemesi s 0140995 Active 2019 Carlton Hamilton MD [address] [place] [address]. [place], [address] , [facility] 0 17:09:26 COVID-19 992838823 Active 2020 Disha Callejas MD [address] [facility] [place], [address] , [facility] 15:39:26 Atrial fibrillati on 22442405 Active 2020 Disha Callejas MD [address] [facility] [place], [address] , [facility] 15:46:00 Glaucoma 49481580 Active 2020 Disha Callejas MD [address] [facility] [place], [address] , [facility] 15:46:06 Prediabete s 498337471 Active 2020 Disha Callejas MD [address] [place] [address] [place], [address] , [facility] 15:46:07 Nodule of lung 910092985 Active 2020 Disha Callejas MD [address] [place] [address] [place], [address] , [facility] 15:46:15 History of myocardial infarction 589329793 Active 2020 Disha Callejas MD [address] [place] [address] [place], [address] , [facility] 2 09:04:19 Left ventricula r hypertroph y 85446113 Active 2020 Disha Callejas MD [address] [place] [address] [place], [address] , [facility] 15:46:39 Erectile dysfunctio n 550996392 Active 2020 Disha Callejas MD [address] [facility] [place], [address] , [facility] 15:46:55 History of SARS-CoV-2 5487466127217 33156 Active 2020 Catherine [facility], [facility] 2 11:01:47 Myocardial infarction 18323620 Active 2021 Leora Castaneda, RN, BSN [facility], [facility] 2 08:51:03 Problem Notes None recorded. Procedures Surgical History Date Name Laterality Status Provider Name and Address Organization Details Recorded Time 12/07/19 22 Nutrition completed Monica Ferrara, , RDN, LDN [address] [place], [address], [facility] 12/29/2021 11:49:46 10/26/19 22 PHQ-9 Patient Health Questionnaire completed Disha Callejas MD [address] [place] [address], [address], [facility] 10/26/2021 11:40:38 06/16/20 20 PHQ-9 Patient Health Questionnaire completed Disha Callejas MD [address] [place] [address], [address], [facility] 06/16/2020 09:15:13 10/07/19 20 colonoscopy completed Disha Callejas MD [address] [place] [address], [address], [facility] 06/16/2020 08:45:24 partial nephrectomy completed Disha Callejas MD [address] [place] [address], [address], [facility] 04/07/2020 09:27:15 Imaging Results Imaging Date Name Status LastModified by Organiz ation Details LastModified Time 12/06/2021 US, kidney completed [email or web address] [address] [place], [address], 12/08/2021 08:15:53 Procedure Notes None recorded. Medical [...] Last Updated DateTime 187.96 cm 32.6 kg/m2 178406. 46 g 67 /min 97 % 97 % 138 mm[Hg] 92 mm[Hg] Ken Weldon MA [facility] 15:15:44 Date Recorded Systolic blood pressure Diastolic blood pressure Provider Name and Address Organization Details Last Updated DateTime 08/02/2021 132 mm[Hg] 84 mm[Hg] Disha Callejas MD [address] [place] [address], [address], [facility] 08/02/2021 15:47:45 Date Recorded Body height Body mass index (BMI) Body weight Oxygen saturation Oxygen saturation in Arterial blood by Pulse oximetry Heart rate Systolic blood pressure Diastolic blood pressure Systolic blood pressure Diastolic blood pressure Provider Name and Address Organization Details Last Updated DateTime 2 187.96 cm 34 kg/m2 898996. 98 g 95 % 95 % 71 /min 128 mm[Hg] 100 mm[Hg] 130 mm[Hg] 102 mm[Hg] Catherine Ramirez [facility] 2 11:05:16 Date Recorded Body height Body mass index (BMI) Body weight Heart rate Systolic blood pressure Diastolic blood pressure Provider Name and Address Organization Details Last Updated DateTime 2 187.96 cm 33.5 kg/m2 694994. 61 g 64 /min 124 mm[Hg] 84 mm[Hg] Yandy Azizakurt [facility] 2 07:47:48 Date Recorded Body height Body mass index (BMI) Body weight Provider Name and Address Organization Details Last Updated DateTime 12/06/2021 187.96 cm 33.4 kg/m2 953239.02 g Monica Ferrara, MS, RDN, LDN [address] [place], [address], [facility] 12/06/2021 09:26:01 Date Recorded Body height Body mass index (BMI) Body weight Heart rate Oxygen saturation Oxygen saturation in Arterial blood by Pulse oximetry Systolic blood pressure Diastolic blood pressure Provider Name and Address Organization Details Last Updated DateTime 2 187.96 cm 33.7 kg/m2 633457 g 64 /min 98 % 98 % 123 mm[Hg] 82 mm[Hg] Peri Cazares [facility] 2 12:22:10 Social History Question Answer Notes LastModified by Organizat ion Details LastModified Time Tobacco Smoking Status Never Smoker Disha Callejas MD [address] [place], [address], [facility] 04/07/2020 09:18:54 What Is Your Level Of [...] available 04/07/2020 Date Of Tobacco Screen 08/01/2021 [email or web address] Information not available 08/01/2021 Members Of Household 1 Information not available 04/07/2020 Marital Status Informatio n not available 04/07/2020 What Was The Date Of Your Most Recent Tobacco Screening? 10/26/2021 [email or web address] Information not available 10/26/2021 How Many Children Do You Have? 4 Information not available 04/07/2020 What Is Your Relationship Status? [email or web address] Information not available 08/01/2021 Do You Use Any Illicit Or Recreational Drugs? No [email or web address] Information not available 08/01/2021 Sex: Unknown Functional [...] Time zoster recombinant 0 completed AURY Ballesteros [facility] 08/01/2021 15:38:02 COVID-19, mRNA, LNP-S, PF, 30 mcg/0.3 mL dose 1 completed Disha Callejas MD [address] [place] [address], [address], [facility] 10/26/2021 11:31:11 COVID-19, mRNA, LNP-S, PF, 30 mcg/0.3 mL dose 1 completed Disha Callejas MD [address] [place] [address], [address], [facility] 10/26/2021 11:31:11 Influenza, split virus, quadrivalent, PF 8 completed Disha Callejas MD [address] [place] [address] [place], [address], [facility] 10/26/2021 11:31:11 Influenza, split virus, trivalent, preservative 4 completed Disha Callejas MD [address] [place] [address] [place], [address], [facility] 10/26/2021 11:31:11 Influenza, split virus, trivalent, preservative 7 completed Disha Callejas MD [address] [place] [address] [place], [address], [facility] 10/26/2021 11:31:11 Influenza, split virus, quadrivalent, PF 1 completed Disha Callejas MD [address] [place] [address] [place], [address], [facility] 10/26/2021 11:31:11 Influenza, split virus, quadrivalent, PF 0 completed Disha Callejas MD [address] [place] [address] [place], [address], [facility] 10/26/2021 11:31:11 Influenza, split virus, trivalent, preservative 1 completed Disha Callejas MD [address] [place] [address] [place], [address], [facility] 10/26/2021 11:31:11 pneumococcal polysaccharide PPV23 1 completed Disha Callejas MD [address] [place] [address] [place], [address], [facility] 10/26/2021 11:31:11 Influenza, split virus, trivalent, preservative 5 completed Disha Callejas MD [address] [place] [address] [place], [address], [facility] 10/26/2021 11:31:11 Influenza, split virus, trivalent, preservative 2 completed Disha Callejas MD [address] [place] [address], [address], [facility] 10/26/2021 11:31:11 Influenza, split virus, trivalent, preservative 6 completed Disha Callejas MD [address] [place] [address], [address], [facility] 10/26/2021 11:31:11 Influenza, split virus, trivalent, preservative 3 completed Disha Callejas MD [address] [place] [address], [address], [facility] 10/26/2021 11:31:11 Td (adult), 2 Lf tetanus toxoid, preservative free, adsorbed 1 completed Disha Callejas MD [address] [place] [address], [address], [facility] 10/26/2021 11:31:11 Tdap 0 completed Yandy Irizarry CMA [facility] 06/16/2020 09:19:12 Past Encounters Encounter ID Performer Location Encounter Start Date Encounter Closed Date Diagnosis/Indication Diagnosis SNOMED-CT Code Diagnosis ICD10 Code Diagnosis Note [id number] Disha Callejas MD [address] [address] 04/07/2020 09:07:08 04/07/2020 09:33:17 Benign essential hypertension 6830575 I10 Patient has a history of hypertensi on for which he has been taking amlodipine 5mg and lisinopril 40mg daily. His blood pressure is currently well controlled . He will continue current medication s which were prescribed today. He will follow-up in 2 months for a physical. Glaucoma 72778869 H40.9 Patient has a history of glaucoma for which he uses eye drops. He has no refills at this time, but has an appointmen t scheduled with an eye doctor next month. Gastroesop hageal reflux disease 269812021 K21.9 Patient has a history of GERD for which he has been taking omeprazole 20mg daily. He notes that while he was in long-term, he got a colonoscop y and was supposed to get an endoscopy as he intermitte ntly has been spitting up blood. GI referral placed and omeprazole refilled. History of malignant neoplasm of kidney 884923370 Z85.528 Patient has a history of a renal tumor which was removed in 2013. He has not had significan t follow-up since then. Recommende d nephrology evaluation . Referral placed. [id number] Disha Callejas MD [facility] [address] [place] [address] 06/16/2020 08:29:53 06/16/2020 09:11:41 Adult health examination 353427833 Z00.00 Patient should discuss medical decisions with [facility] Care Proxy. Recommende d screenings included colonoscop y screening age 50, earlier based on family history/ri sk factors; one time screen for hepatitis C if born between 2612-0118 or has risk factors. Reviewed vaccines and current recommenda tions. Basic health topics include aerobic exercise, importance of healthy/ba lanced diet and minimizing caffeine and alcohol. Administra tion of diphtheria, pertussis, and tetanus vaccine 799633339 Z23 Patient due for Tdap vaccinatio n. Administer ed today. Screening for malignant neoplasm of colon 326120167 Z12.11 Patient reports a colonoscop y in September of 2019 while he was in long-term. No records available, but states he has a history of polyps. Will plan for follow-up colonoscop y in 3-5 years. Varicella vaccination 68 683172 Z23 Patient due for shingles vaccinatio n. Prescribed to his pharmacy. Benign ess ential hypertension 0390616 I10 Patient has a history of hypertensi on for which he has been taking amlodipine 5mg and lisinopril 40mg daily. His blood pressure is currently well controlled . He will continue current medication s which were prescribed today. He will follow-up in 2 months for a physical. [facility] of sexually transmitted infection 447547384 Z20.2 Patient was recently in long-term and would like to be tested for STDs. Blood and urine obtained for testing today. Hyperlipid emia screening 803402471 Z13.220 Patient due for hyperlipid emia screening. Lipid panel obtained today. Large prostate 647621588 N40.0 Patient has a slightly enlarged prostate on examinatio n. Will check PSA today. Impotence of organic origin 990050162 N52.9 Patient has been struggling with getting and maintainin g an erection. Discussed risks and benefits of medication . Prescribed sildenafil 50mg daily as needed. Patient will follow-up if not improving. Hemorrhoids 43949810 K64 .9 Patient has internal hemorrhoid s which are causing him pressure and discomfort . Prescribed hydrocorti sone cream to use topically and help his symptoms. [id number] Carlton Hamilton MD [facility] [address] [place] [address] [address] [place] [address] 07/18/2020 16:45:30 07/18/2020 17:23:52 Hematemesis 3267462 K92.0 A few episodes of bringing up blood (he thinks from the stomach) in Aug and wishes an EGD. No melena. No other red flag ROS. On PRN omeprazole for occasional upper GI ROS. S/p distant treated H.Pylori without check of eradicatio n. Family his tory of cancer of colon [id number] Z80.0 Father History of polyp of colon [id number] Z86.010 On prior colons [id number] Donna Segal MD [facility] [address] [place] [address] it [address] [place] [address] 07/31/2020 14:46:41 07/31/2020 14:47:09 Viral screening [id number] Z11.59 [id number] Vlad Escalera NP [address] [address] 09/19/2020 12:23:54 09/19/2020 12:48:00 Onychomycosis due to dermatophyte [id number] B35.1 Patient educated about onychomyco sis and that the process to treat this can take some time. Patient will start on medication as directed and is aware of the side effects. Patient will follow up if no improvemen t after 1 month. If no improvemen t then try oral medication . Patient can call with any concerns. History of myocardial infarction [id number] I25.2 Patient stated he had a heart attack back in 2016 and had a pain a couple months ago which scared him. Patient hasn't had pain since. Patient would like a referral to cardiology . [id number] Donna Segal MD [facility] [address] [place] [address] [address] [place] [address] 10/07/2020 16:21:41 10/07/2020 16:22:35 Viral screening [id number] Z11.59 [id number] Disha Callejas MD [address] [address] 08/02/2021 15:02:27 08/02/2021 16:13:54 COVID-19 [id number] U07.1 Estefania was hospitaliz ed from 07/14/21-1 at [facility] for COVID-19 infection and pneumonia. He was treated with remdesivir and ceftriazon e/azithrom ycin. He is feeling much better, but continues to have a slight cough and some fatigue. Encouraged patient to work on rebuilding his stamina and use honey or cough drops to help with his cough. Patient will follow-up as needed. Prediabetes [id number] R7 3.03 Patient has a history of prediabete s. He would like to see a nutritioni st, referral placed. Benign ess ential hypertension [id number] I10 Patient has a history of hypertensi on for which he has been taking chlorthali done 12.5mg daily and lisinopril 40mg daily. His blood pressure is currently well controlled . He will continue current medication s which were prescribed today. He will follow-up in 2 months or earlier as needed. [id number] Disha Callejas MD [address] [address] 10/26/2021 10:51:54 10/26/2021 11:39:09 Adult health examination [id number] Z00.01 Patient should discuss medical decisions with Health Care Proxy. Recommende d screenings included colonoscop y screening age 50, earlier based on family history/ri sk factors; one time screen for hepatitis C if born between 1659-2890 or has risk factors. Reviewed vaccines and current recommenda tions. Basic health topics include aerobic exercise, importance of healthy/ba lanced diet and minimizing caffeine and alcohol. Administra tion of diphtheria, pertussis, and tetanus vaccine [id number] Z23 Patient is up to date, received TDAP in 2020. Screening for malignant neoplasm of colon [id number] Z12.11 Patient reports a colonoscop y in September of 2019 while he was in long-term. No records available, but states he has a history of polyps. Will plan for follow-up colonoscop y in 3-5 years. Viral screening [id number] 4 Z11.59 Non-reacti ve screening in 2020. Varicella vaccination [id number] Z23 Patient due for shingles vaccinatio n. Prescribed to his pharmacy. Benign ess ential hypertension [id number] I10 Patient has a history of hypertensi [...] controlled with emtoprolol succinate 50mg daily. Prediabetes 640783837 R7 3.03 Patient has a history of prediabete s. Will check blood work today. Nodule of lung 573799442 R91.1 Patient was found to have a mass in his right lung. He is seeing pulmonolog y at [facility] and has had follow-up scans which demonstrat ed no growth of the area. 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 He is now having right flank pain which he states as the same as prior to his partial nephrectom y. Will obtain an ultrasound to evaluate the remaining kidney. Hematemesis [id number] K92. 0 Patient has a history of coughing up blood and hematemesi s (although has not vomited recently). He has had evaluation s of his lungs and is interested in an endoscopy to check his esophagus. Referral placed to GI. [id number] Caryn Jauregui NP [address] [address] 12/05/2021 07:39:05 12/05/2021 08:06:25 Left lower quadrant pain [id number] R10.32 He states he has been having [...] with no improvemen t in symptoms. Diverticulitis [id number] K57.92 Patient noted with left lower quadrant [...] or with no improvemen t in symptoms. [id number] Monica Ferrara, , RDN, LDN [facility] [address] [place] [address] [address] [place] [address] 12/06/2021 08:04:43 12/06/2021 10:40:31 Prediabetes [id number] R73.03 Summary of Visit:Gi saavedra is a 51 year old primarily Palestinian speaking male referred for prediabete s. Jyoti [...] food groups/lis ts- What Can I Eat? Palestinian handout- Healthy Snack Palestinian handout- Healthy Plate Palestinian handout Educator Assessed Learning Barriers: language barrier [id number] Vlad Escalera NP [facility] [address] [place] [address] 01/04/2022 12:15:26 01/04/2022 12:39:32 Arthritis of left knee [id number] 912163 M13.862 Suspected arthritis along with meniscus wear [...] Concerns Section Related Observation LastModified by Organization Detai ls LastModified Time None Recorded Concern Status LastModified by Organization Details LastModified Time None Recorded Advance Directives Directive None Recorded Payers Encounter Date Sequence Insurance Name Policy Number Policy Girard Covered Member ID Girard Member ID Guarantor Name 08/02/2021 1 [facility]MEDICAID HMO) [id number] Jai Javier [id number] Jai Javier 10/26/2021 1 [facility]ICA[facility] H[facility] [id number] Jai Javier [id number] Jai Javier 12/05/2021 1 [facility] HE[facility] NET PLAN (MEDICAID HMO) [id number] Jai Javier [id number] Jai Javier 12/06/2021 1 [facility] HEALTH NET PLAN (MEDICAID HMO) [id number] Jai Javier [id number] Jai Javier 01/04/2022 1 [facility] HEALTH NET PLAN (MEDICAID HMO) [id number] Jai Javier [id number] Jai Javier Notes Date Note Type Note Provider Name and Address Organization Details Recorded Time 08/02/2021 text/html Patient is a 51 year old male who presents today for a hospital follow-up. He was hospitalized from 07/14/21-07/18/21 for COVID. He was hospitalized at [facility]. He got antibiotics (ceftriaxone and azithromycin for pneumonia) and remdesivir while he was hospitalized. He is feeling much better since he got out of the hospital. Disha Callejas MD [address] [place] [address], [phone], [facility] 08/02/2021 15:50:26 10/26/2021 text/html Patient is a 51 year old male that presents in the office today for an annual exam. Patient is a 51 year old male who presents today for an annual physical. Estefania reports that he has been having pain in his right kidney area. 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 Disha Callejas MD [address] [place] [address], [phone], [facility] 10/26/2021 11:40:45 12/05/2021 text/html Patient is 51 [...] 2019 that showed diverticulosis. 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 Social Support:Primary Support Person: self, GFLiving Arrangements: lives with GF Previous Diet Education/Training:Pr evious Visit with Dietitian: none Meals and Dining:Meals per day:Snacks per day:Skips meals:Recent dietary changes: eating less latelySpecial diets in the past:Food Allergy or intolerances: none reportedPrimary Farm Rancher: usually ptPrisommer Food Parachute Folder:bothDining Out frequency: 1x per weekAlcohol Intake: noneSupplements: Diet recall:- Breakfast: sandwich w/ 1 slice ham and 1 slice cheese, 2 eggs, on potato bread- Lunch: chicken with armenian fries OR empanadas OR sometimes mixed veggies [...] me Monica Ferrara, MS, RDN, LDN [address] [place], [phone], [facility] 12/29/2021 12:04:04 01/04/2022 text/html Patient is a [...] tingling or swelling. Disha Callejas MD [address] [place], [phone], [facility] 01/04/2022 16:38:41
[2025-01-22 15:33] LABS: CT PCR NOT DETECTED (Not Detect.); NG PCR NOT DETECTED (Not Detect.)
[2025-01-25 04:31] LABS: Syphilis Screen Nonreactive (Nonreactive)
[2025-01-25 04:47] LABS: HIV AB/AG Nonreactive (Nonreactive); HIV Num 1 0.05 S/CO (0.00-0.99); ~HepC Num1 0.21 S/CO (0.00-0.79); ~Hepatitis C Antibody Nonreactive (Nonreactive)
[2025-01-26 11:32] LABS: C. Trachomatis RNA TMA, Throat NOT DETECTED; N. gonorrhoeae RNA TMA, Throat NOT DETECTED
== END 2025-01-22 11:04 | disposition home or self-care (01) ==
LOC: HO.HHCL 11:03
PROVIDERS: Visit Provider Family Medicine
DX: R07.0 Pain in throat (principal); Z20.828 Contact with and (suspected) exposure to other viral communicable diseases
CPT/HCPCS: 86780; 86803; 87389; 87491; 87591

== ENCOUNTER 2025-01-22 23:55 | Emergency (ER) | payer MEDICAID, SELFPAY ==
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
--- NOTE | ~2025-01-22 | CT_ITS ---
CLINICAL HISTORY: headache CT head without contrast Comparison: None Findings: No intra-axial mass, midline shift, hydrocephalus, or acute hemorrhage. No significant atrophy-like change or white matter disease. The visualized paranasal sinuses and mastoid air cells are normal. The orbits are unremarkable. No skull fracture. IMPRESSION: 1. No acute intracranial findings. This document has been electronically signed by: John Yarbrough MD on 01/23/2025 06:06:15
[2025-01-22 23:58] VITALS: BP 136/86; PULSE 71; RESP 18; TEMP 36.8; O2SAT 98; BMI 33.2
--- NOTE | 2025-01-23 | ECG_ITS ---
Test Reason : RESOLVED CP Blood Pressure : */* mmHG Vent. Rate : 71 BPM Atrial Rate : 71 BPM P-R Int : 182 ms QRS Dur : 98 ms QT Int : 392 ms P-R-T Axes : 42 5 19 degrees QTcB Int : 425 ms Normal sinus rhythm Normal ECG When compared with ECG of 26-Jun-2023 14:20, No significant change was found Referred By: Generic ED Physician Electronically Signed By: Forest Arriaza
[2025-01-23 00:15] LABS: MANUAL DIFF FLAG NO
[2025-01-23 00:22] LABS: Basophils Absolute Auto 0.1 X10*3/uL (0.0-0.2); Basophils Percent Auto 0.9 % (0-2); Eosinophils Absolute Auto 0.2 X10*3/uL (0.0-0.4); Eosinophils Percent Auto 2.1 % (0-4); Hematocrit 38.3 % (42.0-52.0); Hemoglobin 13.1 g/dl (14.0-18.0); Imm Gran Abs Auto 0.01 X10*3/uL (0.00-0.03); Imm Gran Pct Auto 0.1 % (0.0-0.4); Lymphocytes Percent Auto 25.8 % (20-40); Mean Corpuscular HGB Conc 34.2 g/dl (31.0-36.0); Mean Corpuscular Hemoglobin 29.4 pg (27.0-33.0); Mean Corpuscular Volume 86.1 fL (80.0-98.0); Mean Platelet Volume 10.6 fL (9.4-12.4); Monocytes Absolute Auto 0.8 X10*3/uL (0.1-1.2); Monocytes Percent Auto 10.3 % (2-11); Neutrophils Absolute Auto 4.7 x10*3/uL (2.0-8.3); Neutrophils Percent Auto 60.8 % (45-73); Platelet Count 261 X10*3/uL (160-400); Red Blood Count 4.45 X10*6/uL (4.60-5.80); Red Cell Distribution Width 13.5 % (11.0-16.0); White Blood Count 7.7 X10*3/uL (4.8-10.8)
[2025-01-23 00:30] LABS: Alanine Aminotransferase 24 U/L (0-40); Alkaline Phosphatase 54 U/L (39-117); Anion Gap 15 (12-20); Aspartate Amino Transferase 26 U/L (5-37); Bilirubin Total 0.3 mg/dL (0.0-1.0); Blood Urea Nitrogen 20 mg/dL (9-16); Carbon Dioxide 26 mmol/L (22-29); Chloride 106 mmol/L (96-108); Creatinine Clr Calc Pharmacy 129.4; Estimated Glomerular Filt Rate > 60; Glucose Random 144 mg/dL (60-115); Potassium 3.6 mmol/L (3.3-5.1); Sodium 143 mmol/L (135-145); Total Protein 7.4 g/dL (6.5-8.0)
[2025-01-23 00:31] VITALS: BP 139/74; PULSE 71; RESP 16; TEMP 36.8; O2SAT 93
--- OUTSIDE RECORDS SUMMARY | 2025-01-23 02:03 | XMS_ITS | Referral Summary ---
Author Organization [facility] Address [address] [place] [address] Care Team Providers Care Ceramics Instructor Name Role Phone Disha Callejas MD Primary [...] Not on file Procedures * Due to [place] DadShed law, this organization might not be sharing negative HIV tests. Procedure Name Priority Date/Time Associated Diagnosis Comments COMPREHENSIVE METABOLIC PANEL Routine 07/19/2021 2:56 AM EDT from Last 3 Months or Most Recently Relevant to Health Maintenance Results * Due to [place] DadShed law, this organization might not be sharing negative HIV tests. * (ABNORMAL) Comprehensive Metabolic Panel (07/19/2021 2:56 AM EDT) NA 136 135 - 145 mmol/L 07/19/2021 3:39 AM EDT [facility] K 3.9 3.5 - 5.3 mmol/L 07/19/2021 3:39 AM EDT [facility] Cl 103 97 - 110 mmol/L 07/19/2021 3:39 AM EDT [facility] CO2 25 24 - 32 mmol/L 07/19/2021 3:39 AM EDT [facility] Anion Gap 8 5 - 15 07/19/2021 3:39 AM EDT [facility] Glucose 138(H) 70 - 99 mg/dL 07/19/2021 3:39 AM EDT [facility] Creatinine 0.99 0.60 - 1.30 mg/dL 07/19/2021 3:39 AM EDT [facility] eGFR Non- 88(L) >=90 mL/min/BS A 07/19/2021 3:39 AM [facility] eGFR >90 >=90 mL/min/BS A 07/19/2021 3:39 AM [facility] Comment: Units = mL/min/1.73 [...] 8.7 - 10.7 mg/dL 07/19/2021 3:39 AM [facility] Total Protein 7.3 6.0 - 8.0 g/dL 07/19/2021 3:39 AM [facility] Albumin 3.5 3.5 - 4.8 g/dL 07/19/2021 3:39 AM [facility] Bilirubin, Total 0.2(L) 0.3 - 1.2 mg/dL 07/19/2021 3:39 AM [facility] Alkaline Phosphatase 46 30 - 115 U/L 07/19/2021 3:39 AM [facility] AST 13 10 - 40 U/L 07/19/2021 3:39 AM [facility] ALT 16 10 - 40 U/L 07/19/2021 3:39 AM EDT [facility] BUN 29(H) 7 - 23 mg/dL 07/19/2021 3:39 AM EDT [facility] Blood Structure of peripheral vein / Unknown Venipuncture / Unknown 07/19/2021 2:56 AM EDT 07/19/2021 3:09 AM EDT [facility] BLOOD ORDERABLES Final Result [facility] [address] [place] [address], from Last 3 Months or Most Recently Relevant to Health Maintenance Insurance [employer] Advance Directives * Full Code (Latest Code Status on File) Date Activated Date Inactivated Comments 07/15/2021 3:20 AM 07/19/2021 5:11 PM Care Teams Ceramics Instructor Relationship Specialty Start Date End Date Disha Callejas MD PCP - General Family Medicine 04/27/20
--- OUTSIDE RECORDS SUMMARY | 2025-01-23 02:03 | XMS_ITS | Clinical Summary ---
Author Organization [employer] Address [address] [facility] [address] [place] [address] Care Team Providers Care Track Car Operator Name Role Phone Kathy Hair MD [...] or chew. 90 tablet 1 07/16/20 24 Active tadalafil (Cialis) 10 MG tabletIndication s:Erectile dysfunction, unspecified erectile dysfunction type Take 1 tablet (10 mg) by mouth if needed each day for erectile dysfunction. TAKE 1 TABLET (10 MG) BY MOUTH IF NEEDED EACH DAY FOR ERECTILE DYSFUNCTION. - NOT COVERED 10 tablet 2 09/15/20 24 Active FREESTYLE LITE test stripIndications :Newly diagnosed diabetes ([facility]) Use to test blood sugar 1 times daily 100 each 12 09/17/20 24 025 Active Lancets miscIndications: Newly diagnosed diabetes ([facility]) Use to test blood sugar 1 times daily 100 each 09/17/20 24 Active Alcohol Swabs 70 % padsIndications: Newly diagnosed diabetes ([facility]) Use to test blood sugar 1 times daily 100 each 09/17/20 24 Active Blood Glucose Monitoring Suppl (FreeStyle Gravelly Lite) w/Device kitIndications:N ewly diagnosed diabetes ([facility]) Use to test blood sugar 1 times daily 1 kit 09/17/20 24 Active tadalafil (Cialis) 10 MG tablet Take 1 tablet (10 mg) by mouth if needed each day for erectile dysfunction. 20 tablet 1 11/28/19 25 Active ciclopirox (Penlac) 8 % solutionIndicati ons:Onychomycosi s Apply topically at bedtime. 6 mL 2 12/16/19 25 Active atorvastatin (Lipitor) 40 MG tabletIndication s:History of atrial fibrillation TAKE 1 TABLET (40 MG) BY MOUTH ONCE PER DAY. TAKE 1 TABLET BY MOUTH EVERY DAY 90 tablet 12/25/19 25 025 Active Active Problems Problem Noted Date Diagnosed [...] History of renal carcinoma 10/02/2023 History of OR (myocardial infarction) 10/02/2023 Encounters Date Type Department Care Team Description 01/22/2025 10:20 AM EDT Office Visit [facility] [address] [place] [address] Ward Dorsey MD Exposure to virus (Primary Dx); Throat pain in adult 12/24/2024 Refill [facility] [address] [place] [address] Kathy Hair MD History of atrial fibrillation 12/23/2024 9:30 AM EDT Clinical Support [address] [address] Binta Abrams RN Clogged ear, bilateral 12/23/2024 Travel 12/15/2024 10:00 AM EDT Office Visit [address] [address] Kathy Hair MD Newly diagnosed diabetes ([facility]) (Primary Dx); Hypertension, unspecified type; Onychomycosis; Sexual dysfunction; Clogged ear, bilateral 12/15/2024 Travel 12/14/[address] [address] Kathy Hair MD Chart Prep 12/07/2024 Patient Outreach [address] [address] Kathy Hair MD Care Coordination (CH[facility] outreach SDOH pest control - referral completed ) 12/07/2024 Patient Outreach [address] [address] Kathy Hair MD Pre-visit Planning (SDOH screening positive and tobacco screening negative) 12/04/2024 Population Health Risk Score [facility] () Department [address] [place] [phone] Provider, Population Health Generic 11/27/[address] [address] Kathy Hair MD 11/13/2024 Orders Only [facility] External Provider, [facility] from Last 3 Months Social History [...] Description 03/04/2025 10:00 AM EDT Office Visit [facility] [address] [place] [address] Kathy Hair MD [address] [place] [address] Health Maintenance Due Date Last Done Comments [...] Vaccines (1 of 2) 2020 COVID-19 Vaccine (1 - 2023-2 5 season) 2024 Influenza Vaccine [...] Procedure Name Priority Date/Time Associated Diagnosis Comments CHLAMYDIA/N. GONORRHOEAE RNA, TMA, UROGENITAL Routine 01/22/2025 11:05 AM EDT Exposure to virus POCT INFLUENZA B (ID NOW RAPID MOLECULAR) Routine 01/22/2025 10:53 AM EDT Throat pain in adult POCT INFLUENZA A (ID NOW RAPID MOLECULAR) Routine 01/22/2025 10:53 AM EDT Throat pain in adult POCT RAPID STREP A Routine 01/22/2025 10 :53 AM EDT Throat pain in adult POCT RAPID COVID ANTIGEN Routine 01/22/2025 10:53 AM EDT Throat pain in adult IA REMOVAL IMPACTED CERUMEN IRRIGATION/LVG UNILAT Routine 12/23/2024 [...] Recently Relevant to Health Maintenance Results * Chlamydia/N. Gonorrhoeae RNA, TMA, Urogenitial (01/22/2025 11:05 AM EDT) CT PCR NOT DETECTED Not Detect. [facility] Comment:A not detected test result does not exclude the possibilityof infection because test results can be affected byimproper specimen collection, concurrent antibiotic therapy,or the number of organisms in the specimen which may bebelow the sensitivity of the test. As with many diagnostictests, results from the Xpert CT/NG assay should beinterpreted in conjunction with other laboratory andclinical data available to the clinician.Xpert CT/NG performance has not been evaluated in patientsless than 14 years of age. The assay should not be used forthe evaluationof suspected sexual abuse or for other medico-legalindications. Additional testing is recommended in anycircumstance when false positive or false negative resultscould lead to adverse medical, social or psychologicalconsequences. NG PCR NOT DETECTED Not Detect. [facility] Comment:A not detected test result does not exclude the possibilityof infection because test results can be affected byimproper specimen collection, concurrent antibiotic therapy,or the number of organisms in the specimen which may bebelow the sensitivity of the test. As with many diagnostictests, results from the Xpert CT/NG assay should beinterpreted in conjunction with other laboratory andclinical data available to the clinician.Xpert CT/NG performance has not been evaluated in patientsless than 14 years of age. The assay should not be used forthe evaluationof suspected sexual abuse or for other medico-legalindications. Additional testing is recommended in anycircumstance when false positive or false negative resultscould lead to adverse medical, social or psychologicalconsequences. Urine (Urine, Random) 01/22/2025 11:05 AM EDT 01/22/2025 1:03 PM EDT Narrative [facility] - 01/22/2025 3:34 PM EDT Urine Ward Dorsey MD LAB MICROBIOLOGY - GENERAL ORDER YU Final Result Performing Organization Address [facility]/ZIP Co de Phone Number [facility] [address] [place] [phone] * Influenza B (ID NOW Rapid Molecular) (01/22/2025 10:53 AM EDT) Influenza B Negative Negative, Indeterminate [facility] Swab 01/22/2025 10:5 3 AM EDT Ward Dorsey MD POINT OF CARE TEST ENTER/EDIT OR DERABLES Final Result Performing Organization Address [facility] Co de Phone Number [facility] [address] [place] [phone] * Influenza A (ID NOW Rapid Molecular) (01/22/2025 10:53 AM EDT) Influenza A Negative Negative, Indeterminate [facility] Swab 01/22/2025 10:5 3 AM EDT Ward Dorsey MD POINT OF CARE TEST ENTER/EDIT OR DERABLES Final Result Performing Organization Address [facility] Co de Phone Number [facility] [address] [place] [phone] * POCT Rapid COVID Ag (01/22/2025 10:53 AM EDT) Rapid COVID Ag Negative [facility] Swab 01/22/2025 10:5 3 AM EDT Ward Dorsey MD POINT OF CARE TEST ENTER/EDIT OR DERABLES Final Result Performing Organization Address [facility]/ZIP Co de Phone Number [facility] [address] [place] [phone] * POCT rapid strep A manually resulted (01/22/2025 10:53 AM EDT) Rapid Strep A Screen Negative Negative, None Detected [facility] Swab 01/22/2025 10:5 3 AM EDT us Ward Dorsey MD POINT OF CARE TEST ENTER/EDIT OR DERABLES Final Result [facility] [address] [place] [phone] * IA REMOVAL IMPACTED CERUMEN IRRIGATION/LVG UNILAT (12/23/2024 9:57 AM EDT) Binta Patel RN - 12/23/2024 9:57 AM EDT Binta Abrams RN ? 12/23/2024 10:10 AM Ear Cerumen Removal Date/Time: 12/23/2024 9:57 AM Performed by: Binta Abrams RN Authorized by: Kathy Jennings MD ?? Consent: ??Consent obtained: ??Verbal ??Consent given by: ??Patient ??Risks, benefits, and alternatives were discussed: yes ?? [place] protocol: ??Patient identity confirmed: ??Verbally with patient [...] Testosterone, Total 279 250 - 1100 ng/dL [facility] Comment:For additional infor saba, please refer tohttp://education.Orugga/faq/[email or web address](This link is being provided for informational/educational purposes only.)This test was developed and its analytical performancecharacteristics have been determined by [employer] [place], [place]. It hasnot been cleared or approved by the U.S. Food and DrugAdministration. This assay has been validated pursuantto the CLIA regulations and is used for clinicalpurposes.THIS TEST WAS PERFORMED AT:[facility] [place] [address]DGOKOWNHERNANDO DEVRIES MD,PHD Blood Venous blood specimen / Unknown 12/15/2024 10:32 AM EDT 12/15/2024 11:23 AM EDT Kathy Jennings MD LAB BLOOD ORDERABLES Final Result [facility] [address] [place] [address] [phone] * POCT Glucose (12/15/2024 10:12 AM EDT) [facility] Signature Glucose Blood, POC 111 60 - [...] EST Narrative 11/13/2024 8:55 AM EST ? [facility] ?[address] ?[place] [address] ? CT Scan Report ? Signed with Addenda ? Patient: Javier,Jai ?MR#: [id number] ?? [id number] ? : 1970 ?Acct:[id number] ? Age/Sex: 54 / M ?ADM Date: 02/21/25 ? Loc: HO.CT ? Attending Dr: Terrence Chris MD ? Ordering Physician: Terrence Chris MD ?? Date of Service: 11/13/24 ?? Procedure(s): CT chest wo IV con ?? Accession Number(s): [id number] ? cc: Kathy Hair MD; Terrence Chris MD ? Report Number: ?? [id number]: Total DLP = ??231.00 mGy-cm ?ADDENDUM ?? [...] OV> ?11/13/24854 ? DD/ 3 ? TD/TT: 02/21/25 0854 ? Sales Outfitter: ? Procedure Note Briana, Image - 11/13/[address] [address] [address] Scan Report Signed with Addenda Patient: Jerrell Herrera#: [id number] : 1970Acct:[id number] Age/Sex: 54 / MADM Date: 11/13/24 Loc: HO.CT Attending Dr: Terrence Chris MD Ordering Physician: Terrence Chris MD Date of Service: 11/13/24 Procedure(s): CT chest wo IV con Accession Number(s): [id number] cc: Kathy Hair MD; Terrence Chris MD Report Number: [id number]: Total DLP = 231.00 mGy-cm ADDENDUM This [...] in OV> 11/13/24 0855 DD/ TD/TT: 11/13/2454 Sales Outfitter: [facility] External Provider IMG CT PROCEDURES Edited Result - Final * Hepatitis C Antibody with Reflex to HCV, RNA, Quantitative, Real-Time PCR (09/15/2024 10:59 AM EST) Hepatitis C Antibody Nonreactive Nonreactive [facility] Comment:Antibodies to HCV no t detected; does not exclude early acuteHCV infection. Blood Venous blood specimen / Unknown 09/15/2024 10:59 AM EST 09/15/2024 1:13 PM EST Kathy Jennings MD LAB BLOOD ORDERABLES Final Result [facility] [address] [place] [phone] * HIV-1/2 Antigen and Antibodies, Fourth Generation, with Reflexes (09/15/2024 10:59 AM EST) HIV AB/AG Nonreactive Nonreactive [facility] Comment:HIV-1 p24 Ag and/or HIV-1/HIV-2 Ab not detected.A test result that is nonreactive does not exclude thepossibility of exposure to or infection with HIV-1 and/orHIV-2. Nonreactive results in this assay for individualswith prior exposure to HIV-1 and/or HIV-2 may be due toantigen and antibody levels that are below the limit ofdetection of this assay.The [employer] HIV Ag/Ab Combo assay result andsupplemental assay results should be interpreted inconjunction with the patient's clinical presentation,history and other laboratory results. If the results areinconsistent with clinical evidence, additional testing issuggested to confirm the result. Blood Venous blood specimen / Unknown 09/15/2024 10:59 AM EST 09/15/2024 1:13 PM EST Kathy Jennings MD LAB BLOOD ORDERABLES Final Result Performing Organization Address [facility]/ZIP Co de Phone Number [facility] [address] [place] [phone] * (ABNORMAL) Hemoglobin A1c (09/15/2024 10:59 AM EST) Hemoglobin A1c 6.5(H) <6.0 % [facility] Comment:Hemoglobin A1C Refer ence Range Adults: 4.8 - 6.0 % Non diabetic: < 6.0 % Goal: < 7.0 %Additional Action Suggested: > 8.0 %Note: Hemoglobin A1c results are invalid for patients with abnormal amounts of HbF. Blood transfusions may impact the HbA1c concentration in the patient sample. Estimated Average Glucose 140 mg/dL [facility] Comment:eAG = Estimated ave rage glucose which is %A1C expressed asaverage glucose, using the formula of the [id number] Glucose study (ADAG), Diabetes Care, Vol.31,#8,Apr. 2007 Blood Venous blood specimen / Unknown 09/15/2024 10:59 AM EST 09/15/2024 1:13 PM EST us Kathy Jennings MD LAB BLOOD ORDERABLES Final Result Performing Organization Address [facility]/ZIP Co de Phone Number [facility] [address] [place] [phone] * (ABNORMAL) Lipid Panel, Standard (09/15/2024 10:59 AM EST) Triglycerides 134 <150 mg/dL [facility] Comment:Desirable Triglyceri de: less than 150 mg/dLBorderline High Triglyceride 150-199 mg/dLHigh Triglyceride: 200-499 mg/dLVery High Triglyceride: greater than or equal to 5OO mg/dL Cholesterol 180 <200 mg/dL [facility] Comment:Desirable Cholestero l: less than 200 mg/dLBorderline High Cholesterol: 200-239 mg/dLHigh Cholesterol: greater than 239 mg/dL LDL Cholesterol Calculated 119(H) <100 mg/dL [facility] Comment:Desirable LDL: less than 100 mg/dLNear Optimal/Above Optimal LDL: 110- 129 mg/dLBorderline High LDL: 130-159 mg/dLHigh LDL: 160-189 mg/dLVery High LDL: greater than or equal to 190 mg/dL HDL Cholesterol 35(L) >40 mg/dL [facility] Comment:Desirable HDL: great er than 40 mg/dL Note: This HDL assay may give artificially low results in patients with liver disease. Blood Venous blood specimen / Unknown 09/15/2024 10:59 AM EST 09/15/2024 1:13 PM EST us Kathy Jennings MD LAB BLOOD ORDERABLES Final Result [facility] [address] [place] [phone] from Last 3 Months or Most Recently Relevant to Health Maintenance Insurance [facility] C3 Care Teams Track Car Operator Relationship Specialty Start Date End Date Kathy Hair MD [address] [place] [phone] PCP - General Internal Medicine 09/15/24
--- OUTSIDE RECORDS SUMMARY | 2025-01-23 02:03 | XMS_ITS | Encounter Summary ---
Author Organization [employer] Address [address] [place] [address] Care Team Providers Care Lunchroom Aide Name Role Phone Kathy Hair MD Primary Care Provide r Reason for Visit * Reason Comments Sore Throat Encounter Details Date Type Department Care Team ([facility] st Contact Info) Description 01/22/2025 10:20 AM EDT Office Visit [facility] [address] [place] [address] Ward Dorsey MD [address] [place] [address] Exposure to virus (Primary Dx); Throat pain [...] 9:50 AM EDT documented in this encounter Progress Notes * Ward Dorsey MD - 01/22/2025 10:20 AM EDT Subjective History was provided by the patient. Jai Herrera is a 54 y.o. male who presents for evaluation of 2-week duration of sore throat and congestion, started when he was visiting [facility]. No known sick contacts. States he is monogamous with his who lives in [facility]. Questioning possible pharyngeal STI. Denies cough or rhinorrhea. Denies F/C/N/V/D. Denies CP/SOB/GIL. Denies penile discharge, dysuria, or hematuria. Objective Vitals: 01/22/25 1026 BP: 134/79 BP Location: Left arm Patient Position: Sitting BP Cuff Size: Large adult Pulse: 66 Resp: 18 Temp: 98.4 ??F (36.9 ??C) TempSrc: Oral SpO2: 96% Weight: 244 lb 12.8 oz (111 kg) Physical Exam Vitals reviewed. Constitutional: Appearance: Normal appearance. HENT: Head: Normocephalic and atraumatic. Right Ear: Tympanic membrane, ear canal and external ear normal. Left Ear: Tympanic membrane, ear canal and external ear normal. Nose: Nose normal. No congestion or rhinorrhea. Mouth/Throat: Mouth: Mucous membranes are dry. Pharynx: Oropharynx is clear. Posterior oropharyngeal erythema present. No oropharyngeal exudate. Eyes: Extraocular Movements: Extraocular movements intact. Conjunctiva/sclera: Conjunctivae normal. Pupils: Pupils are equal, round, and reactive to light. Cardiovascular: Rate and Rhythm: Normal rate and regular rhythm. Heart sounds: Normal heart sounds. Pulmonary: Effort: Pulmonary effort is normal. Breath sounds: Normal breath sounds. Musculoskeletal: Cervical back: Normal range of motion and neck supple. Lymphadenopathy: Cervical: No cervical adenopathy. Skin: General: Skin is warm and dry. Neurological: Mental Status: He is alert and oriented to person, place, and time. Psychiatric: Mood and Affect: Mood normal. Behavior: Behavior normal. Thought Content: Thought content normal. Judgment: Judgment normal. Jai was seen today for sore throat. Diagnoses and all orders for this visit: Exposure to virus (Primary) - Chlamydia/N. Gonorrhoeae RNA, TMA, Urogenitial; Future - Hepatitis C Antibody with Reflex to HCV, RNA, Quantitative, Real-Time PCR; Future - HIV-1/2 Antigen and Antibodies, Fourth Generation, with Reflexes; Future - Syphilis Screen; Future Throat pain in adult - POCT Rapid COVID Ag - POCT rapid strep A manually resulted - Influenza A (ID NOW Rapid Molecular) - Influenza B (ID NOW Rapid Molecular) - Chlamydia/N. Gonorrhoeae RNA, TMA, Throat Patient presents to [facility] with 2-week duration of sore throat Recent trip to [facility] when his symptoms started Also with minimal congestion, but no significant cough or rhinorrhea Also denies CP/SOB/GIL or F/C/N/V/D Normal pulmonary exam and no respiratory distress Rapid COVID-19, Influenza A/B, and Strep negative Patient is inquiring about throat STI States he is monogamous with his Performed oral sex on his who lives in [facility] [place] Pharyngeal GC/CT obtained Also recommended STI screening (HIV, Hep C, Syphilis, and Urine GC/CT) Harm reduction and safer sex discussed Discussed supportive care with ample hydration, sleep position and rest OTC supportive medications reviewed Advised to contact the clinic if no improvement of symptoms Indications for UC/ER use reviewed documented in this encounter Plan of Treatment Upcoming Encounters Date Type Department Care Team (Late st Contact Info) Description 03/04/2025 10:00 AM EDT Office Visit [facility] [address] [place], [place] [phone] Kathy Hair MD [address] [place], [place] [phone] Scheduled Orders Name Type Priority Associated Diagnoses Orde r Schedule Chlamydia/N. Gonorrhoeae RNA, TMA, Throat Microbiology Routine Throat pain in adult Ordered: 01/22/2025 Hepatitis C Antibody with Reflex to HCV, [...] adult documented in this encounter Results * Chlamydia/N. Gonorrhoeae RNA, TMA, Urogenitial (01/22/2025 11:05 AM EDT) CT PCR NOT DETECTED Not Detect. [facility] Comment:A not detected test result does [...] psychologicalconsequences. NG PCR NOT DETECTED Not Detect. [facility] Comment:A not detected test result does [...] AM EDT 01/22/2025 1:03 PM EDT Narrative [facility] - 01/22/2025 3:34 PM EDT Urine us Ward Dorsey MD LAB MICROBIOLOGY - GENERAL ORDER YU Final Result Performing Organization Address [facility] Co de Phone Number [facility] [address] [place] [phone] * Influenza B (ID NOW Rapid Molecular) (01/22/2025 10:53 AM EDT) Pathologist [facility] Influenza B Negative Negative, Indeterminate [facility] Swab 01/22/2025 10:5 3 AM EDT us Ward Dorsey MD POINT OF CARE TEST ENTER/EDIT OR DERABLES Final Result Performing Organization Address [facility] de Phone Number [facility] [address] [place] [phone] * Influenza A (ID NOW Rapid Molecular) (01/22/2025 10:53 AM EDT) [facility] Influenza A Negative Negative, Indeterminate [facility] Swab 01/22/2025 10:5 3 AM EDT us Ward Dorsey MD POINT OF CARE TEST ENTER/EDIT OR DERABLES Final Result Performing Organization Address [facility] Co de Phone Number [facility] [address] [place] [phone] * POCT rapid strep A manually resulted (01/22/2025 10:53 AM EDT) [facility] Rapid Strep A Screen Negative Negative, None Detected [facility] Swab 01/22/2025 10:5 3 AM EDT us Ward Dorsey MD POINT OF CARE TEST ENTER/EDIT OR DERABLES Final Result Performing Organization Address [facility] Co de Phone Number [facility] [address] [place] [address] [phone] * POCT Rapid COVID Ag (01/22/2025 10:53 AM EDT) Rapid COVID Ag Negative [facility] Swab 01/22/2025 10:5 3 AM EDT Ward Dorsey MD POINT OF CARE TEST ENTER/EDIT OR DERABLES Final Result [facility] [address] [place] [phone] documented in this encounter Visit Diagnoses Diagnosis Exposure to virus- Primary Throat pain in adult documented in this encounter Additional Health Concerns Assessment Noted Time PHQ-9 Depression Total Score: 0 09/15/20 10:07 AM EST documented as of this encounter Care Teams Lunchroom Aide Relationship Specialty Start Date End Date Kathy Hair MD [address] [place] [phone] PCP - General Internal Medicine 09/15/24 documented as of this encounter
--- OUTSIDE RECORDS SUMMARY | 2025-01-23 02:03 | XMS_ITS | Encounter Summary ---
Author Organization [employer] Address [address] [facility] 7t [place] [address] Care Team Providers Care Catering Sales Manager Name Role Phone Kathy Hair MD Primary Care Provide r Reason for Visit * Reason Onset Date Comments New Patient 06/28/2023 Encounter Details Date Type Department Care Team (Late st Contact Info) Description 06/28/2023 Telephone [facility] [address] [place] [address] [phone] Beny Renteria MD [address] [place], [place] [phone] New Patient Social History Tobacco Use Types [...] transfer over to wait list for DIGITAL MEDIA COORDINATOR. EFFECTIVE SINCE 06/28/2023 documented in this encounter Plan of Treatment Upcoming Encounters Date Type Department Care Team (Late st Contact Info) Description 03/04/2025 10:00 AM EDT Office Visit [facility] [address] [place] [phone] Kathy Hair MD [address] [place], [place] [phone] documented as of this encounter Visit Diagnoses Not on filedocumented in this encounter Care Teams Catering Sales Manager Relationship Specialty Start Date End Date Kathy Hair MD [address] [place], [place] [phone] PCP - General Internal Medicine 09/15/24 documented as of this encounter
--- OUTSIDE RECORDS SUMMARY | 2025-01-23 02:03 | XMS_ITS | Encounter Summary ---
Author Organization [employer] Address [address] [facility] 7[address] [place] [address] Care Team Providers Care Foot Miter Operator Name Role Phone Kathy Hair MD Primary Care Provide r Reason for Visit * Reason Comments Med Refill Encounter Details Date Type Department Care Team (Late Contact Info) Description 07/15/2024 Refill [facility] [address] [place] [phone] Kenan Mays MD [address] [place] [phone] Essential hypertension Social History Tobacco Use Types [...] Description 03/04/2025 10:00 AM EDT Office Visit [facility] [address] [place] [phone] Kathy Hair MD [address] [place] [phone] documented as of this encounter Visit Diagnoses Diagnosis Essential hypertension Unspecified essential hypertension documented in this encounter Care Teams Foot Miter Operator Relationship Specialty Start Date End Date Kathy Hair MD [address] [place] [phone] PCP - General Internal Medicine 09/15/24 documented as of this encounter
--- OUTSIDE RECORDS SUMMARY | 2025-01-23 02:03 | XMS_ITS | Encounter Summary ---
Author Organization [employer] Address 75 [facility] 7t [place] [address] Care Team Providers Care Strategic Planning Specialist Name Role Phone Kathy Hair MD Primary Care Provide r Reason for Visit * Reason Comments Med Refill Encounter Details Date Type Department Care Team (Late Contact Info) Description 04/21/2024 Refill [facility] [address] [place] [phone] Name, MD Wenceslao [address] [place] [address] [phone] Essential hypertension Social History Tobacco Use Types [...] Description 03/04/2025 10:00 AM EDT Office Visit [facility] [address] [place] [phone] Kathy Hair MD [address] [place] [phone] documented as of this encounter Visit Diagnoses Diagnosis Essential hypertension Unspecified essential hypertension documented in this encounter Care Teams Strategic Planning Specialist Relationship Specialty Start Date End Date Kathy Hair MD [address] [place] [phone] PCP - General Internal Medicine 09/15/24 documented as of this encounter
--- OUTSIDE RECORDS SUMMARY | 2025-01-23 02:03 | XMS_ITS | Encounter Summary ---
Author Organization [employer] Address [address] [facility] [address] 7t [place] [address] Care Team Providers Care Food Service Order Clerk Name Role Phone Kathy Hair MD Primary Care Provide r Reason for Visit * Reason Comments Med Refill Encounter Details Date Type Department Care Team (Late Contact Info) Description 07/15/2024 Refill [facility] [address] [place] [address] [phone] Kenan Mays MD [address] [place] [address] Essential hypertension Social History Tobacco Use Types [...] [facility] [address] [place] [address] [phone] Kathy Hair MD [address] [place] [phone] documented as of this encounter Visit Diagnoses Diagnosis Essential hypertension Unspecified essential hypertension documented in this encounter Care Teams Food Service Order Clerk Relationship Specialty Start Date End Date Kathy Hair MD [address] [place] [phone] PCP - General Internal Medicine 09/15/24 documented as of this encounter
--- OUTSIDE RECORDS SUMMARY | 2025-01-23 02:03 | XMS_ITS | Encounter Summary ---
Author Organization [employer] Address [address] [facility] [address] 7[address] [place] [address] Care Team Providers Care Exhauster Engineer Name Role Phone Kathy Hair MD Primary Care Provide r Reason for Visit * Reason Comments Med Refill Encounter Details Date Type Department Care Team (Late Contact Info) Description 06/22/2024 Refill [facility] [address] [place] [phone] Name, MD Wenceslao [address] [place] [phone] Social History Tobacco Use Types Packs/Day Years [...] Description 03/04/2025 10:00 AM EDT Office Visit [facility] [address] [place] [phone] Ktahy Hair MD [address] [place] [phone] documented as of this encounter Visit Diagnoses Not on filedocumented in this encounter Care Teams Exhauster Engineer Relationship Specialty Start Date End Date Kathy Hair MD [address] [place] [phone] PCP - General Internal Medicine 09/15/24 documented as of this encounter
--- OUTSIDE RECORDS SUMMARY | 2025-01-23 02:03 | XMS_ITS | Encounter Summary ---
Author Organization [employer] Address [address] [facility] [address] [place] [address] Care Team Providers Care Anesthetist Name Role Phone Kathy Hair MD Primary Care Provide r Reason for Visit * Reason Comments Med Refill Encounter Details Date Type Department Care Team (Late Contact Info) Description 07/15/2024 Refill [facility] [address] [place] [address] [phone] Kenan Mays MD [address] [place] [address] Essential hypertension Social History Tobacco Use Types [...] Description 03/04/2025 10:00 AM EDT Office Visit [facility] [address] [place] [phone] Kahty Hair MD [address] [place] [phone] documented as of this encounter Visit Diagnoses Diagnosis Essential hypertension Unspecified essential hypertension documented in this encounter Care Teams Anesthetist Relationship Specialty Start Date End Date Kathy Hair MD [address] [place] [phone] PCP - General Internal Medicine 09/15/24 documented as of this encounter
--- OUTSIDE RECORDS SUMMARY | 2025-01-23 02:03 | XMS_ITS | Encounter Summary ---
Author Organization [employer] Address [address] [facility] [address] 7[address] [place] [address] Care Team Providers Care Factory Helper Name Role Phone Kathy Hair MD Primary Care Provide r Reason for Visit * Reason Comments Med Refill Encounter Details Date Type Department Care Team ([facility] Contact Info) Description 01/10/2024 Refill [facility] [address] [place] [address] Annelise Joseph FNP [address] [place] [address] Social History Tobacco Use Types Packs/Day Years [...] Description 03/04/2025 10:00 AM EDT Office Visit [facility] [address] [place] [address] Kathy Hair MD [address] [place] [phone] documented as of this encounter Visit Diagnoses Not on filedocumented in this encounter Care Teams Factory Helper Relationship Specialty Start Date End Date Kathy Hair MD [address] [place] [phone] PCP - General Internal Medicine 09/15/24 documented as of this encounter
--- OUTSIDE RECORDS SUMMARY | 2025-01-23 02:03 | XMS_ITS | Clinical Summary ---
Author Organization [facility] Address [address] [place] [address] Care Team Providers Care Haulage Engine Operator Name Role Phone Disha Callejas MD Primary Care Provider [phone] Allergies No known active allergies Medications latanoprost [...] 75+ series) 2045 Procedures * Due to [place] state law, this organization might not be sharing negative HIV tests. Procedure Name Priority Date/Time Associated Diagnosis Comments COMPREHENSIVE METABOLIC PANEL Routine 07/19/2021 2:56 AM EDT from Last 3 Months or Most Recently Relevant to Health Maintenance Results * Due to [place] state law, this organization might not be sharing negative HIV tests. * (ABNORMAL) Comprehensive Metabolic Panel (07/19/2021 2:56 AM EDT) NA 136 135 - 145 mmol/L 07/19/2021 3:39 AM EDT [facility] K 3.9 3.5 - 5.3 mmol/L 07/19/2021 3:39 AM EDT [facility] Cl 103 97 - 110 mmol/L 07/19/2021 3:39 AM EDT [facility] CO2 25 24 - 32 mmol/L 07/19/2021 3:39 AM EDT [facility] Anion Gap 8 5 - 15 07/19/2021 3:39 AM EDT [facility] Glucose 138(H) 70 - 99 mg/dL 07/19/2021 3:39 AM EDT [facility] Creatinine 0.99 0.60 - 1.30 mg/dL 07/19/2021 3:39 AM EDT [facility] eGFR Non- 88(L) >=90 mL/min/BS A 07/19/2021 3:39 AM EDT [facility] eGFR >90 >=90 mL/min/BS A 07/19/2021 3:39 AM EDT [facility] Comment: Units = mL/min/1.73 [...] - 10.7 mg/dL 07/19/2021 3:39 AM EDT [facility] Total Protein 7.3 6.0 - 8.0 g/dL 07/19/2021 3:39 AM EDT [facility] Albumin 3.5 3.5 - 4.8 g/dL 07/19/2021 3:39 AM EDT [facility] Bilirubin, Total 0.2(L) 0.3 - 1.2 mg/dL 07/19/2021 3:39 AM EDT [facility] Alkaline Phosphatase 46 30 - 115 U/L 07/19/2021 3:39 AM EDT [facility] AST 13 10 - 40 U/L 07/19/2021 3:39 AM EDT [facility] ALT 16 10 - 40 U/L 07/19/2021 3:39 AM EDT [facility] BUN 29(H) 7 - 23 mg/dL 07/19/2021 3:39 AM EDT [facility] Blood Structure of peripheral vein / Unknown Venipuncture / Unknown 07/19/2021 2:56 AM EDT 07/19/2021 3:09 AM EDT us Marietta Wilhelm ASSISTANT READING TEACHER LAB BLOOD ORDERABLES Final Result [facility] [address] [place] [address], from Last 3 Months or Most Recently Relevant to Health Maintenance Insurance [employer] Advance Directives * Full Code (Latest Code Status on File) Date Activated Date Inactivated Comments 07/15/2021 3:20 AM 07/19/2021 5:11 PM Care Teams Haulage Engine Operator Relationship Specialty Start Date End Date Disha Callejas MD PCP - General Family Medicine 04/27/20
[2025-01-23 03:01] VITALS: BP 124/71; PULSE 59; RESP 20; TEMP 36.6; O2SAT 95
--- NOTE | 2025-01-23 03:26 | ED_ITS ---
HPI - General Adult General Chief complaint: General Medical Stated complaint: headache, abd/stomach pain Time Seen by Provider: 01/23/25 03:13 Source: patient Mode of arrival: ambulatory Limitations: no limitations History of Present Illness ED Provider: HPI narrative: Patient is 54 years old with history of renal cancer comes here for sudden onset of headache at 18:00 localized of the right side of the head no nausea no vomiting and then at 20:00 noticed left-sided chest pain off and on like pressure no diaphoresis no shortness a breath Related Data Home Medications ?Medication ?Instructions ?Recorded ?Confirmed hydrochlorothiazide 25 mg tablet 25 mg PO DAILY 09/29/24 tadalafil 10 mg tablet 10 mg PO DAILY PRN intercourse 09/29/24 Previous Rx's ?Medication ?Instructions ?Recorded lisinopril 40 mg tablet 40 mg PO DAILY #30 tabs 06/26/23 metoprolol succinate 25 mg 25 mg PO DAILY #30 tabs 06/26/23 tablet,extended release 24 hr ibuprofen 600 mg tablet 600 mg PO Q6H PRN fever or pain 01/23/25 #30 tabs Allergies Allergy/AdvReac Type Severity Reaction Status Date / Time No Known Allergies Allergy Mild NONE Verified 01/23/25 00:00 Review of Systems 2 Review of Systems: Yes all other systems are reviewed and are negative PMFSH Past Medical History Medical History Dyspnea Chest pain Abnormal chest x-ray Hemoptysis Social History Social History Alcohol intake: never Patient Tobacco Use Status: Never used Tobacco Smoked in Last 30 Days: No Use of substances other than those prescribed or required for medical reasons: No Advance Directives: No Advance Directives Information Provided: Yes Do you have a plan to hurt others: No Plan Current occupational status: employed 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 Oriented X3. No acute distress. Eyes: PERRLA, No Nystagmus ENT: Pharynx normal. Oral Mucosa moist Neck: Normal inspection. Neck supple. CVS: Normal heart rate and rhythm. Pulses normal. No murmur rub or gallop Respiratory: No respiratory distress. Equal air entry bilateral, no wheezing/rales/rhonchi Abdomen: Soft and nontender. Bowel sounds are present, no mass palpable, no CVA tenderness Skin: Skin warm and dry. Normal skin color. Normal skin turgor. Extremities: No lower extremity edema. No calf tenderness Neuro: Oriented X 3. No motor deficit. No sensory deficit.No cerebellar signs , cranial nerves II-XII intact Medical Decision Making Medical Decision Making [facility] Narrative: Patient nonspecific headache CT scan of the head is negative head atypical chest pain also cardiac workup also negative including EKG and cardiac enzymes x2 with heart score of 1 will discharge patient home Differential Diagnosis Differential Diagnoses: The differential diagnosis associated with the presentation includes Lab Data [facility] Lab Attestation statement: I reviewed the patient's lab results. 01/23/25 00:11 01/23/25 00:11 Labs: Lab Results 01/23/25 01/23/25 Range/Units 00:11 04:36 WBC 7.7 (4.8-10.8) X10*3/uL RBC 4.45 L (4.60-5.80) X10*6/uL Hgb 13.1 L (14.0-18.0) g/dl Hct 38.3 L (42.0-52.0) % MCV 86.1 (80.0-98.0) fL MCH 29.4 (27.0-33.0) pg MCHC 34.2 (31.0-36.0) g/dl RDW 13.5 (11.0-16.0) % Plt Count 261 (160-400) X10*3/uL MPV 10.6 (9.4-12.4) fL Immature Gran % (Auto) 0.1 (0.0-0.4) % Neut % (Auto) 60.8 (45-73) % Lymph % (Auto) 25.8 (20-40) % Hood % (Auto) 10.3 (2-11) % Eos % (Auto) 2.1 (0-4) % Baso % (Auto) 0.9 (0-2) % Lymph # (Auto) 2.0 (1.2-4.9) X10*3/uL Hood # (Auto) 0.8 (0.1-1.2) X10*3/uL Eos # (Auto) 0.2 (0.0-0.4) X10*3/uL Baso # (Auto) 0.1 (0.0-0.2) X10*3/uL Abs Immat Gran (auto) 0.01 (0.00-0.03) X10*3/uL Absolute Neuts (auto) 4.7 (2.0-8.3) x10*3/uL Absolute Nucleated RBC 0.000 (0.0-0.012) X10*3/uL Nucleated RBC % (auto) 0.0 (0.0-0.2) /100WBC Sodium 143 (135-145) mmol/L Potassium 3.6 (3.3-5.1) mmol/L Chloride 106 (96-108) mmol/L Carbon Dioxide 26 (22-29) mmol/L Anion Gap 15 (12-20) BUN 20 H (9-16) mg/dL Creatinine 0.84 (0.5-1.4) mg/dL Estim Creat Clear Calc 129.4 Estimated GFR > 60 Random Glucose 144 H (60-115) mg/dL Calcium 9.0 (8.4-10.2) mg/dL Total Bilirubin 0.3 (0.0-1.0) mg/dL AST 26 (5-37) U/L ALT 24 (0-40) U/L Alkaline Phosphatase 54 (39-117) U/L Troponin I High Sens 31.0 30.1 (<3.5-35.0) ng/L Total Protein 7.4 (6.5-8.0) g/dL Albumin 4.0 (3.5-5.0) g/dL Independent Interpretation I performed an independent interpretation of an: EKG Interpretation: Normal sinus rhythm heart rate 71 beats per minute normal intervals normal axis no acute ST-T changes no acute ischemia Radiology Impression Discussion of test interpretation with radiology: I have reviewed the radiologist's reading. Radiologist Impression: nad Scores Heart Score History: -0- slightly suspicious ECG: -0- normal Age: -1- >45 - <65 Risk factory: -0- no risk factors known Troponin: -0- < or = normal limit Score: 1 Risk: 1.7% Discharge Plan Discharge Clinical Impression: Headache Chest pain Qualifiers: Chest pain type: other chest pain Qualified Code(s): R07.89 - Other chest pain Patient Disposition: Home, Self-Care Instructions: Chest Pain (DC), General Headache (ED) Additional Instructions: Cause of your chest pain is not clear you need to follow up with your PCP for further evaluation at this time there is no evidence of heart attack Take Tylenol/Motrin for headaches Prescriptions: New ibuprofen 600 mg tablet 600 mg PO Q6H PRN (Reason: fever or pain) Qty: 30 0RF No Action metoprolol succinate 25 mg tablet extended release 24 hr 25 mg PO DAILY Qty: 30 0RF lisinopril 40 mg tablet 40 mg PO DAILY Qty: 30 0RF hydrochlorothiazide 25 mg tablet 25 mg PO DAILY tadalafil 10 mg tablet 10 mg PO DAILY PRN (Reason: intercourse) Print Language: [place] Islander
[2025-01-23 04:19] VITALS: BP 115/79; PULSE 61; RESP 14; TEMP 36.5; O2SAT 96
[2025-01-23 05:02] LABS: Troponin-I High Sensitivity 30.1 ng/L (<3.5-35.0)
[2025-01-23 06:32] VITALS: BP 127/84; PULSE 64; RESP 16; TEMP 36.5; O2SAT 96
[2025-01-23 06:40] VITALS: BP 127/84; PULSE 64; RESP 16; TEMP 36.5; O2SAT 96
== END 2025-01-23 06:43 | disposition home or self-care (01) ==
PROVIDERS: Emergency Provider Internal Medicine; PCP Internal Medicine
DX: R51.9 Headache, unspecified (principal); R07.89 Other chest pain
CPT/HCPCS: 36415; 70450; 71045; 80053; 84484; 85025; 93005; 99284

== ENCOUNTER → 2025-01-23 00:05 | Outpatient (BNV) | payer MEDICAID, SELFPAY | PROVIDERS: Emergency Provider Internal Medicine; PCP Internal Medicine; Visit Provider Internal Medicine Cardiovascular Disease | DX: Z13.6 Encounter for screening for cardiovascular disorders (principal) | CPT/HCPCS: 93010 ==

== ENCOUNTER → 2025-01-23 00:08 | Outpatient (BNV) | payer MEDICAID, SELFPAY | PROVIDERS: Visit Provider Radiology Diagnostic Radiology | DX: R51.9 Headache, unspecified (principal); R07.9 Chest pain, unspecified | CPT/HCPCS: 70450; 71045 ==

== ENCOUNTER 2025-02-09 09:43 | Outpatient (REF) | payer MEDICAID, SELFPAY ==
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
--- OUTSIDE RECORDS SUMMARY | 2025-02-09 10:43 | XMS_ITS | Clinical Summary ---
Author Organization [facility] Address [address] [place] [address] Care Team Providers Care Manager Infusion Name Role Phone Disha Callejas MD Primary Care Provider [phone] Allergies No known active allergies Medications latanoprost [...] 75+ series) 2045 Procedures * Due to [place] state law, this organization might not be sharing negative HIV tests. Procedure Name Priority Date/Time Associated Diagnosis Comments COMPREHENSIVE METABOLIC PANEL Routine 07/19/2021 2:56 AM EDT from Last 3 Months or Most Recently Relevant to Health Maintenance Results * Due to [place] state law, this organization might not be sharing negative HIV tests. * (ABNORMAL) Comprehensive Metabolic Panel (07/19/2021 2:56 AM EDT) NA 136 135 - 145 mmol/L 07/19/2021 3:39 AM EDT [facility] K 3.9 3.5 - 5.3 mmol/L 07/19/2021 3:39 AM EDT [facility] Cl 103 97 - 110 mmol/L 07/19/2021 3:39 AM EDT [facility] CO2 25 24 - 32 mmol/L 07/19/2021 3:39 AM EDT [facility] Anion Gap 8 5 - 15 07/19/2021 3:39 AM EDT [facility] Glucose 138(H) 70 - 99 mg/dL 07/19/2021 3:39 AM EDT [facility] Creatinine 0.99 0.60 - 1.30 mg/dL 07/19/2021 3:39 AM EDT [facility] eGFR Non- 88(L) >=90 mL/min/BS A 07/19/2021 3:39 AM EDT [facility] eGFR >90 >=90 mL/min/BS A 07/19/2021 3:39 AM EDT [facility] Comment: Units = mL/min/1.73 [...] - 10.7 mg/dL 07/19/2021 3:39 AM EDT [facility] Total Protein 7.3 6.0 - 8.0 g/dL 07/19/2021 3:39 AM EDT [facility] Albumin 3.5 3.5 - 4.8 g/dL 07/19/2021 3:39 AM EDT [facility] Bilirubin, Total 0.2(L) 0.3 - 1.2 mg/dL 07/19/2021 3:39 AM EDT [facility] Alkaline Phosphatase 46 30 - 115 U/L 07/19/2021 3:39 AM EDT [facility] AST 13 10 - 40 U/L 07/19/2021 3:39 AM EDT [facility] ALT 16 10 - 40 U/L 07/19/2021 3:39 AM EDT [facility] BUN 29(H) 7 - 23 mg/dL 07/19/2021 3:39 AM EDT [facility] Blood Structure of peripheral vein / Unknown Venipuncture / Unknown 07/19/2021 2:56 AM EDT 07/19/2021 3:09 AM EDT us Marietta Wilhelm SPLITTING MACHINE TENDER LAB BLOOD ORDERABLES Final Result [facility] [address] [place] [address], from Last 3 Months or Most Recently Relevant to Health Maintenance Insurance [employer] Advance Directives * Full Code (Latest Code Status on File) Date Activated Date Inactivated Comments 07/15/2021 3:20 AM 07/19/2021 5:11 PM Care Teams Manager Infusion Relationship Specialty Start Date End Date Disha Callejas MD PCP - General Family Medicine 04/27/20
--- OUTSIDE RECORDS SUMMARY | 2025-02-09 10:43 | XMS_ITS | Encounter Summary ---
Author Organization [employer] Address [address] [facility] [address] [place] [address] Care Team Providers Care Amf Mechanic Name Role Phone Kathy Hair MD Primary Care Provide r Reason for Visit * Reason Comments Shoulder Pain Neck Pain Encounter Details Date Type Department Care Team ([facility] st Contact Info) Description 02/09/2025 9:00 AM EDT Office Visit [facility] [address] [place] [address] Chronic right shoulder pain (Primary Dx); Neck pain on right side Social History Tobacco Use Types Packs/Day Years [...] Sign Reading Time Taken Comments Blood Pressure 131/88 02/09/2025 9:17 AM EDT Pulse 60 02/09/2025 9:17 AM EDT Temperature 36.4 ??C (97.5 ??F) 02/09/2025 9:17 AM ED T Respiratory Rate 17 02/09/2025 9:17 AM EDT Oxygen Saturation 96% 02/09/2025 9:17 AM EDT Inhaled Oxygen Concentration - - Weight 109 kg (240 lb 12.8 oz) 02/09/2025 9:17 A M EDT Height - - Body Mass Index 32.66 12/15/2024 9:50 AM EDT documented in this encounter Plan of Treatment Upcoming Encounters Date Type Department Care Team (Late st Contact Info) Description 03/04/2025 10:00 AM EDT Office Visit [facility] [address] [place] [address] Kathy Hair MD [address] [place] [address] Scheduled Orders Name Type Priority Associated Diagnoses Orde r Schedule XR Shoulder 2+ Views Right Imaging Routine Chronic right shoulder pain Expected: 02/09/2025, Expires: 02/09/2026 XR Cervical Spine 2-3 Views Imaging Routine Neck pain on right side Expected: 02/09/2025, Expires: 02/09/2026 documented as of this encounter Visit Diagnoses Diagnosis Chronic right shoulder pain- Primary Pain in joint, shoulder region Neck pain on right side documented in this encounter Additional Health Concerns Assessment Noted Time PHQ-9 Depression Total Score: 0 09/15/20 10:07 AM EST documented as of this encounter Care Teams Amf Mechanic Relationship Specialty Start Date End Date Kathy Hair MD [address] [place] [address] PCP - General Internal Medicine 09/15/24 documented as of this encounter
--- OUTSIDE RECORDS SUMMARY | 2025-02-09 10:43 | XMS_ITS | Encounter Summary ---
Author Organization [employer] Address [address] [place] [address] Care Team Providers Care Lead Miner Blasting Name Role Phone Kathy Hair MD Primary Care Provide r Reason for Visit * Reason Comments Med Refill Encounter Details Date Type Department Care Team ([facility] Contact Info) Description 01/10/2024 Refill [facility] [address] [place] [phone] Annelise Joseph FNP [address] [place] [address] Social History Tobacco Use Types Packs/Day Years [...] Description 03/04/2025 10:00 AM EDT Office Visit [facility] [address] [place] [address] Kathy Hair MD [address] [place] [address] documented as of this encounter Visit Diagnoses Not on filedocumented in this encounter Care Teams Lead Miner Blasting Relationship Specialty Start Date End Date Kathy Hair MD [address] [place] [phone] PCP - General Internal Medicine 09/15/24 documented as of this encounter
--- OUTSIDE RECORDS SUMMARY | 2025-02-09 10:43 | XMS_ITS | Encounter Summary ---
Author Organization [employer] Address [address] [place] [address] Care Team Providers Care Machine Washer Name Role Phone Kathy Hair MD Primary Care Provide r Reason for Visit * Reason Comments Med Refill Encounter Details Date Type Department Care Team (Late Contact Info) Description 07/15/2024 Refill [facility] [address] [place] [phone] Kenan Mays MD [address] [place] [address] Essential hypertension Social History Tobacco Use Types [...] AM EDT Office Visit [facility] [address] [place] [phone] Kathy Hair MD [address] [place] [phone] documented as of this encounter Visit Diagnoses Diagnosis Essential hypertension Unspecified essential hypertension documented in this encounter Care Teams Machine Washer Relationship Specialty Start Date End Date Kathy Hair MD [address] [place] [phone] PCP - General Internal Medicine 09/15/24 documented as of this encounter
--- OUTSIDE RECORDS SUMMARY | 2025-02-09 10:43 | XMS_ITS | Encounter Summary ---
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 EFFECTIVE SINCE 06/28/2023 documented in this encounter Plan of Treatment Upcoming Encounters Date Type Department Care Team (Late st Contact Info) Description 03/04/2025 10:00 AM EDT Office Visit [facility] [address] [place] [phone] Kathy Hiar MD [address] [place], [place] [phone] documented as of this encounter Visit Diagnoses Not on filedocumented in this encounter Care Teams Group Manager Relationship Specialty Start Date End Date Kathy Hair MD [address] [place], [place] [phone] PCP - General Internal Medicine 09/15/24 documented as of this encounter
--- OUTSIDE RECORDS SUMMARY | 2025-02-09 10:43 | XMS_ITS | Referral Summary ---
Author Organization [facility] Address [address] [place] [address] Care Team Providers Care Hand I Cutter Name Role Phone Disha Callejas MD Primary [...] Not on file Procedures * Due to [place] [employer] law, this organization might not be sharing negative HIV tests. Procedure Name Priority Date/Time Associated Diagnosis Comments COMPREHENSIVE METABOLIC PANEL Routine 07/19/2021 2:56 AM EDT from Last 3 Months or Most Recently Relevant to Health Maintenance Results * Due to [place] [employer] law, this organization might not be sharing negative HIV tests. * (ABNORMAL) Comprehensive Metabolic Panel (07/19/2021 2:56 AM EDT) NA 136 135 - 145 mmol/L 07/19/2021 3:39 AM EDT [facility] K 3.9 3.5 - 5.3 mmol/L 07/19/2021 3:39 AM EDT [facility] Cl 103 97 - 110 mmol/L 07/19/2021 3:39 AM EDT [facility] CO2 25 24 - 32 mmol/L 07/19/2021 3:39 AM EDT [facility] Anion Gap 8 5 - 15 07/19/2021 3:39 AM EDT [facility] Glucose 138(H) 70 - 99 mg/dL 07/19/2021 3:39 AM EDT [facility] Creatinine 0.99 0.60 - 1.30 mg/dL 07/19/2021 3:39 AM EDT [facility] eGFR Non- 88(L) >=90 mL/min/BS A 07/19/2021 3:39 AM [facility] eGFR >90 >=90 mL/min/BS A 07/19/2021 3:39 AM [facility] Comment: Units = mL/min/1.73 [...] 8.7 - 10.7 mg/dL 07/19/2021 3:39 AM [facility] Total Protein 7.3 6.0 - 8.0 g/dL 07/19/2021 3:39 AM [facility] Albumin 3.5 3.5 - 4.8 g/dL 07/19/2021 3:39 AM [facility] Bilirubin, Total 0.2(L) 0.3 - 1.2 mg/dL 07/19/2021 3:39 AM [facility] Alkaline Phosphatase 46 30 - 115 U/L 07/19/2021 3:39 AM [facility] AST 13 10 - 40 U/L 07/19/2021 3:39 AM [facility] ALT 16 10 - 40 U/L 07/19/2021 3:39 AM EDT [facility] BUN 29(H) 7 - 23 mg/dL 07/19/2021 3:39 AM EDT [facility] Blood Structure of peripheral vein / Unknown Venipuncture / Unknown 07/19/2021 2:56 AM EDT 07/19/2021 3:09 AM EDT us Marietta Wilhelm LAUNDRY ASSISTANT LAB BLOOD ORDERABLES Final Result [facility] [address] [place] [address], from Last 3 Months or Most Recently Relevant to Health Maintenance Insurance [employer] Advance Directives * Full Code (Latest Code Status on File) Date Activated Date Inactivated Comments 07/15/2021 3:20 AM 07/19/2021 5:11 PM Care Teams Hand I Cutter Relationship Specialty Start Date End Date Disha Callejas MD PCP - General Family Medicine 04/27/20
--- OUTSIDE RECORDS SUMMARY | 2025-02-09 10:43 | XMS_ITS | Encounter Summary ---
Author Organization [employer] Address [address] [place] [address] Care Team Providers Care Design Studio Consultant Name Role Phone Kathy Hair MD Primary Care Provide r Reason for Visit * Reason Comments Med Change Request Encounter Details Date Type Department Care Team ([facility] st Contact Info) Description 02/09/2025 Refill [facility] [address] [place] [address] Kenan Mays MD [address] [place] [address] Social History Tobacco Use Types Packs/Day Years [...] Description 03/04/2025 10:00 AM EDT Office Visit [facility] [address] [place] [phone] Kathy Hair MD [address] [place] [phone] documented as of this encounter Visit Diagnoses Not on filedocumented in this encounter Additional Health Concerns Assessment Noted Time PHQ-9 Depression Total Score: 0 09/15/20 10:07 AM EST documented as of this encounter Care Teams Design Studio Consultant Relationship Specialty Start Date End Date Kathy Hair MD [address] [place] [phone] PCP - General Internal Medicine 09/15/24 documented as of this encounter
--- OUTSIDE RECORDS SUMMARY | 2025-02-09 10:43 | XMS_ITS | Encounter Summary ---
Author Organization [employer] Address [address] [place] [address] Care Team Providers Care Solar Installation Manager Name Role Phone Kathy Hair MD Primary Care Provide r Reason for Visit * Reason Comments Med Refill Encounter Details Date Type Department Care Team (Late Contact Info) Description 06/22/2024 Refill [facility] [address] [place] [phone] Name, MD Wenceslao [address] [place] [phone] Social History Tobacco Use Types Packs/Day Years [...] Description 03/04/2025 10:00 AM EDT Office Visit [facility] [address] [place] [phone] Kathy Hair MD [address] [place] [phone] documented as of this encounter Visit Diagnoses Not on filedocumented in this encounter Care Teams Solar Installation Manager Relationship Specialty Start Date End Date Kathy Hair MD [address] [place] [phone] PCP - General Internal Medicine 09/15/24 documented as of this encounter
--- OUTSIDE RECORDS SUMMARY | 2025-02-09 10:43 | XMS_ITS | Encounter Summary ---
Author Organization [employer] Address [address] [facility] [place] [address] Care Team Providers Care Radiation Safety Officer Name Role Phone Kathy Hair MD Primary Care Provide r Reason for Visit * Reason Comments Med Refill Encounter Details Date Type Department Care Team (Late Contact Info) Description 07/15/2024 Refill [facility] [address] [place] [phone] Kenan Mays MD [address] [place] [address] Essential hypertension Social History Tobacco Use Types [...] 10:00 AM EDT Office Visit [facility] [address] [place] [phone] Kathy Hair MD [address] [place] [phone] documented as of this encounter Visit Diagnoses Diagnosis Essential hypertension Unspecified essential hypertension documented in this encounter Care Teams Radiation Safety Officer Relationship Specialty Start Date End Date Kathy Hair MD [address] [place] [phone] PCP - General Internal Medicine 09/15/24 documented as of this encounter
--- OUTSIDE RECORDS SUMMARY | 2025-02-09 10:43 | XMS_ITS | Clinical Summary ---
Author Organization [employer] Address [address] [place] [address] Care Team Providers Care Concept Artist Name Role Phone Kathy Hair MD Primary [...] FREESTYLE LITE test stripIndications :Newly diagnosed diabetes ([facility]) Use to test blood sugar 1 times daily 100 each 12 09/17/20 24 025 Active Lancets miscIndications: Newly diagnosed diabetes ([facility]) Use to test blood sugar 1 times daily 100 each 09/17/20 24 Active Alcohol Swabs 70 % padsIndications: Newly diagnosed diabetes ([facility]) Use to test blood sugar 1 times daily 100 each 09/17/20 24 Active Blood Glucose Monitoring Suppl (FreeStyle Goodhue Lite) w/Device kitIndications:N ewly diagnosed diabetes ([facility]) Use to test blood sugar 1 times [...] DAY 90 tablet 12/25/19 25 025 Active tiZANidine (Zanaflex) 2 MG tablet Take 1 tablet (2 mg) by mouth if needed at bedtime (pain). May take 2 tablets at bedtime prn pain 30 tablet 02/10/20 25 Active Active Problems Problem Noted Date Diagnosed [...] History of renal carcinoma 10/02/2023 History of CA (myocardial infarction) 10/02/2023 Encounters Date Type Department Care Team Description 02/09/2025 9:00 AM EDT Office Visit [facility] [address] [place] [address] [phone] Chronic right shoulder pain (Primary Dx); Neck pain on right side 02/09/2025 Refill [facility] [address] [place] [phone] Kenan Mays MD 02/09/2025 Travel 01/23/2025 Orders Only GENERIC EXTERNAL DATA DEPARTMENT Provider, Generic External Data 01/22/2025 10:20 AM EDT Office Visit [facility] [address] [place] [phone] Ward Dorsey MD Exposure to virus (Primary Dx); Throat pain in adult 12/24/[address] [address] Kathy Hair MD History of atrial fibrillation 12/23/2024 9:30 AM EDT Clinical Support [address] [address] Binta Abrams RN Clogged ear, bilateral 12/23/2024 Travel 12/15/2024 10:00 AM EDT Office Visit [address] [address] Kathy Hair MD Newly diagnosed diabetes (CMS/HCC) (Primary Dx); Hypertension, unspecified type; Onychomycosis; Sexual dysfunction; Clogged ear, bilateral 12/15/2024 Travel 12/14/[address] [address] Kathy Hair MD Chart Prep 12/07/2024 Patient Outreach [address] [address] Kathy Hair MD Care Coordination (CHW outreach SDOH pest control - referral completed ) 12/07/2024 Patient Outreach [address] [address] Kathy Hair MD Pre-visit Planning (SDOH screening positive and tobacco screening negative) 12/04/2024 Population Health Risk Score Community [facility] (C3) Department [address] [place] [phone] Provider, Population Health Generic 11/27/[address] [address] Kathy Hair MD 11/13/2024 Orders Only [facility] External Provider, [facility] from Last 3 Months Social History [...] oz) 02/09/2025 9:17 A M EDT Height 182.9 cm (6') 12/15/2024 9:50 AM EDT Body Mass Index 32.66 12/15/2024 9:50 AM EDT Plan of Treatment Upcoming Encounters Date Type Department Care Team (Late st Contact Info) Description 03/04/2025 10:00 AM EDT Office Visit [facility] [address] [place] [address], [place] [phone] Kathy Hair MD [address] [place], [place] [phone] Health Maintenance Due Date Last Done Comments [...] Panel 09/15/2025 09/15/2024 SDOH Screening 12/07/2025 12/07/2024 Disability Screening 12/15/2025 12/15/2024 Tobacco Screening 02/09/2026 02/09/2025 RSV Patients and Patients Aged 60 years or older (1 - 1-dose 75+ series) 2045 HIV Screening Completed 01/22/2025, 09/15/2024 Hepatitis C Screening Completed 01/22/2025 , 09/15/2024 HIB Vaccines Aged Out No longer [...] patient's age to complete this topic Meningococcal B Vaccine Aged Out No l onger eligible based on patient's age to complete [...] Name Priority Date/Time Associated Diagnosis Comments CT HEAD WO CONTRAST Routine 01/23/2025 6 :06 AM EDT HIGH SENSITIVITY TROPONIN I Routine 01/23/2025 4:36 AM EDT SYPHILIS SCREEN Routine 01/22/2025 11:06 AM EDT Exposure to virus HIV 1/2 ANTIGEN/ANTIBODY, FOURTH GENERATION W/RFL Routine 01/22/2025 11:06 AM EDT Exposure to virus HEPATITIS C AB W/REFL TO HCV RNA, QN, PCR Routine 01/22/2025 11:06 AM EDT Exposure to virus CHLAMYDIA/N. GONORRHOEAE RNA, TMA, UROGENITAL Routine 01/22/2025 11:05 AM EDT Exposure to virus CHLAMYDIA/N. GONORRHOEAE RNA, TMA, THROAT Routine 01/22/2025 11:02 AM EDT Throat pain in adult POCT INFLUENZA B (ID NOW RAPID MOLECULAR) Routine 01/22/2025 10:53 AM EDT Throat pain in adult POCT INFLUENZA A (ID NOW RAPID MOLECULAR) Routine 01/22/2025 10:53 AM EDT Throat pain in adult POCT RAPID STREP A Routine 01/22/2025 10 :53 AM EDT Throat pain in adult POCT RAPID COVID ANTIGEN Routine 01/22/2025 10:53 AM EDT Throat pain in adult ND REMOVAL IMPACTED CERUMEN IRRIGATION/LVG UNILAT Routine 12/23/2024 9:57 AM EDT Clogged ear, bilateral TESTOSTERONE, TOTAL, MALES (ADULT), IA Routine 12/15/2024 10:32 AM EDT Sexual dysfunction POCT GLUCOSE Routine 12/15/2024 10:12 AM EDT Newly diagnosed diabetes (CMS/HCC) CT CHEST WO CONTRAST Routine 11/13/2024 8:54 AM EST HEMOGLOBIN A1C Routine 09/15/2024 10:59 AM EST Hemoptysis History of renal carcinoma LIPID PANEL, STANDARD Routine 09/15/2024 10:59 AM EST Hemoptysis History of renal carcinoma from Last 3 Months or Most Recently Relevant to Health Maintenance Results * CT Head w/o Contrast (01/23/2025 6:06 AM EDT) Anatomical Region Laterality Modality Head, Neck Computed Tomogra phy 01/23/2025 6:06 AM EDT Narrative 01/23/2025 6:07 AM EDT ? [facility] ?[address] ?[place] [address] ? CT Scan Report ? Signed ? Patient: Javier,Jai ?MR#: [id number] ?? [id number] ? : 1970 ?Acct:[id number] ? Age/Sex: 54 / M ?ADM Date: 01/23/25 ? Loc: HO.ED ? Attending Dr: ? Ordering Physician: Thomas Mcconnell MD ?? Date of Service: 01/23/25 ?? Procedure(s): CT head/brain wo IV con ?? Accession Number(s): [id number] ? cc: Kathy Hair MD; Thomas Mcconnell MD ? Report Number: ?? [id number]: Total DLP = ??824.00 mGy-cm ? CLINICAL HISTORY: headache ? CT head without contrast ? Comparison: None ? Findings: ?? No intra-axial mass, midline shift, hydrocephalus, or acute hemorrhage. ?? No significant atrophy-like change or white matter disease. ? The visualized paranasal sinuses and mastoid air cells are normal. ?? The orbits are unremarkable. ?? No skull fracture. ? IMPRESSION: ?? 1. No acute intracranial findings. ? This document has been electronically signed by: John Yarbrough MD on ?? 01/23/2025 06:06:15 ? Dictated By: ?John Yarbrough MD ? Signed By: ?<Electronically signed by John Yarbrough MD in OV> ?01/23/25606 ? DD/ 5 ? TD/TT: 01/23/25605 ? Psychology Assistant: ? Procedure Note Briana, Image - 01/23/[address] [place] [address] [address] Scan Report Signed Patient: Jerrell Herrera#: [id number] : 1970Acct:[id number] Age/Sex: 54 / MADM Date: 01/23/25 Loc: HO.ED Attending Dr: Ordering Physician: Thomas Mcconnell MD Date of Service: 01/23/25 Procedure(s): CT head/brain wo IV con Accession Number(s): [id number] cc: Kathy Hair MD; Thomas Mcconnell MD Report Number: [id number]: Total DLP = 824.00 mGy-cm CLINICAL HISTORY: headache CT head without contrast Comparison: None Findings: No intra-axial mass, midline shift, hydrocephalus, or acute hemorrhage. No significant atrophy-like change or white matter disease. The visualized paranasal sinuses and mastoid air cells are normal. The orbits are unremarkable. No skull fracture. IMPRESSION: 1. No acute intracranial findings. This document has been electronically signed by: John Yarbrough MD on 01/23/2025 06:06:15 Dictated By: John Yarbrough MD Signed By: <Electronically signed by John Yarbrough MD in OV> 01/23/25606 DD/ 5 TD/TT: 01/23/25605 Psychology Assistant: [facility] External Provider IMG CT PROCEDURES Edited Result - Final * High Sensitivity Troponin I (01/23/2025 4:36 AM EDT) TROPONIN I HIGH SENSITIVITY 30.1 <3.5 - 35.0 ng/L [facility] Comment:The [place] high sens itivity Troponin-I results should beused in conjunction with other diagnostic information suchas ECG, clinical observations and information, and patientsymptoms to aid in the diagnosis of CA. 01/23/2025 4:36 AM EDT 01/23/2025 4:39 AM EDT Generic External Data Provider LAB BLOOD ORDERAB LES Final Result Performing Organization Address [facility]/ZIP Co de Phone Number [facility] [address] [place] [phone] * Syphilis Screen (01/22/2025 11:06 AM EDT) Syphilis Screen Nonreactive Nonreactive [facility] Blood 01/22/2025 11:0 6 AM EDT 01/22/2025 4:04 PM EDT Ward Dorsey MD LAB BLOOD ORDERABLES Final Resul t Performing Organization Address City/[facility]/ZIP Co de Phone Number [facility] [address] [place] [phone] * Hepatitis C Antibody with Reflex to HCV, RNA, Quantitative, Real-Time PCR (01/22/2025 11:06 AM EDT) Hepatitis C Antibody Nonreactive Nonreactive [facility] Comment:Antibodies to HCV no t detected; does not exclude early acuteHCV infection. Blood Venous blood specimen / Unknown 01/22/2025 11:06 AM EDT 01/22/2025 4:04 PM EDT us Ward Dorsey MD LAB BLOOD ORDERABLES Final Resul t Performing Organization Address [facility] Co de Phone Number [facility] [address] [place] [phone] * HIV-1/2 Antigen and Antibodies, Fourth Generation, with Reflexes (01/22/2025 11:06 AM EDT) HIV AB/AG Nonreactive Nonreactive [facility] Comment:HIV-1 p24 Ag and/or HIV-1/HIV-2 Ab not detected.A test result that is nonreactive does not exclude thepossibility of exposure to or infection with HIV-1 and/orHIV-2. Nonreactive results in this assay for individualswith prior exposure to HIV-1 and/or HIV-2 may be due toantigen and antibody levels that are below the limit ofdetection of this assay.The [employer] HIV Ag/Ab Combo assay result andsupplemental assay results should be interpreted inconjunction with the patient's clinical presentation,history and other laboratory results. If the results areinconsistent with clinical evidence, additional testing issuggested to confirm the result. Blood Venous blood specimen / Unknown 01/22/2025 11:06 AM EDT 01/22/2025 4:04 PM EDT us Ward Dorsey MD LAB BLOOD ORDERABLES Final Resul t Performing Organization Address [facility] Co de Phone Number [facility] [address] [place] [phone] * Chlamydia/N. Gonorrhoeae RNA, TMA, Urogenitial (01/22/2025 11:05 AM EDT) CT PCR NOT DETECTED Not Detect. [facility] Comment:A not detected test result [...] psychologicalconsequences. NG PCR NOT DETECTED Not Detect. [facility] Comment:A not detected test result [...] AM EDT 01/22/2025 1:03 PM EDT Narrative [facility] - 01/22/2025 3:34 PM EDT Urine us Ward Dorsey MD LAB MICROBIOLOGY - GENERAL ORDER YU Final Result Performing Organization Address [facility] Co de Phone Number [facility] [address] [place] [phone] * Chlamydia/N. Gonorrhoeae RNA, TMA, Throat (01/22/2025 11:02 AM EDT) C. Trachomatis RNA TMA, Throat NOT DETECTED [facility] N. gonorrhoeae RNA TMA, Throat NOT DETECTED [facility] Comment:REFERENCE RANGE: NOT DETECTEDMethodology: Gas Line Repairer Mediated Amplification (TMA) to detect RNA.The analytical performance characteristics of this assayhave been determined by [employer]. The modificationshave not been cleared or approved by the FDA. This assay hasbeen validated pursuant to the CLIA regulations and is usedfor clinical purposes.For additional information, please refer tohttps://education.[employer]/faq/IOY348(This link is being provided for informational/educationalpurposes only.)THIS TEST WAS PERFORMED AT:[employer] [id number] [facility] [place] [address]XBAITKAILEY VALVERDE MD,PHD,OLINDA Swab Structure of anterior portion of neck / Unknown 01/22/2025 11:02 AM EDT 01/22/2025 1:34 PM EDT Ward Dorsey MD LAB MICROBIOLOGY - GENERAL ORDER YU Final Result Performing Organization Address [facility] Co de Phone Number [facility] [address] [place] [phone] * Influenza B (ID NOW Rapid Molecular) (01/22/2025 10:53 AM EDT) Influenza B Negative Negative, Indeterminate [facility] Swab 01/22/2025 10:5 3 AM EDT us Ward Dorsey MD POINT OF CARE TEST ENTER/EDIT OR DERABLES Final Result Performing Organization Address [facility]/ZIP Co de Phone Number [facility] [address] [place] [phone] * Influenza A (ID NOW Rapid Molecular) (01/22/2025 10:53 AM EDT) Influenza A Negative Negative, Indeterminate [facility] Swab 01/22/2025 10:5 3 AM EDT Ward Dorsey MD POINT OF CARE TEST ENTER/EDIT OR DERABLES Final Result Performing Organization Address [facility] Co de Phone Number [facility] [address] [place] [phone] * POCT Rapid COVID Ag (01/22/2025 10:53 AM EDT) Pathologist [facility] Rapid COVID Ag Negative [facility] Swab 01/22/2025 10:5 3 AM EDT Ward Dorsey MD POINT OF CARE TEST ENTER/EDIT OR DERABLES Final Result Performing Organization Address [facility] de Phone Number [facility] [address] [place] [phone] * POCT rapid strep A manually resulted (01/22/2025 10:53 AM EDT) Pathologist [facility] Rapid Strep A Screen Negative Negative, None Detected [facility] Swab 01/22/2025 10:5 3 AM EDT Ward Dorsey MD POINT OF CARE TEST ENTER/EDIT OR DERABLES Final Result Performing Organization Address [facility] Co de Phone Number [facility] [address] [place] [phone] * ND REMOVAL IMPACTED CERUMEN IRRIGATION/LVG UNILAT (12/23/2024 9:57 AM EDT) Narrative Signs, Binta RN - 12/23/2024 9:57 AM EDT Binta Abrams RN ? 12/23/2024 10:10 AM Ear Cerumen Removal Date/Time: 12/23/2024 9:57 AM Performed by: Binta Abarms RN Authorized by: Kathy Jennings MD ?? Consent: ??Consent obtained: ??Verbal ??Consent given by: ??Patient ??Risks, benefits, and alternatives were discussed: yes ?? [place] protocol: ??Patient identity confirmed: ??Verbally with patient [...] males (Adult), IA (12/15/2024 10:32 AM EDT) [facility] Testosterone, Total 279 250 - 1100 ng/dL [facility] Comment:For additional infor saba, please refer tohttp://education.[employer]mData/faq/DssafDnvtxfgbxavzPSPLRWXDF622(This link is being provided for informational/educational purposes only.)This test was developed and its analytical performancecharacteristics have been determined by [employer] [place], [place]. It hasnot been cleared or approved by the U.S. Food and DrugAdministration. This assay has been validated pursuantto the CLIA regulations and is used for clinicalpurposes.THIS TEST WAS PERFORMED AT:[employer]/[facility] [place] [address]ENSFNWYHERNANDO DEVRIES MD,PHD Blood Venous blood specimen / Unknown 12/15/2024 10:32 AM EDT 12/15/2024 11:23 AM EDT us Kathy Jennings MD LAB BLOOD ORDERABLES Final Result [facility] [address] [facility] [place] [phone] * POCT Glucose (12/15/2024 10:12 AM EDT) Glucose Blood, POC 111 60 - 200 mg/dL [employer] Media Lot # [id number] Lot# Expiration Date [id number] Blood Capillary blood specimen / Unknown 12/15/2024 10:12 AM EDT us Kathy Jennings MD POINT OF CARE TEST EN TER/EDIT ORDERABLES Final Result * CT Chest w/o Contrast (11/13/2024 8:54 AM EST) Anatomical Region Laterality Modality Body, Chest Computed Tomogra phy 11/13/2024 8:54 AM EST Narrative 11/13/2024 8:55 AM EST ? [facility] ?[address] ?[place] [address] ? CT Scan Report ? Signed with Addenda ? Patient: Jai Herrera ?MR#: [id number] ?? [id number] ? : 1970 ?Acct:[id number] ? Age/Sex: 54 / M ?ADM Date: 11/13/24 ? Loc: HO.CT ? Attending Dr: Terrence Chris MD ? Ordering Physician: Terrence Chris MD ?? Date of Service: 11/13/24 ?? Procedure(s): CT chest wo IV con ?? Accession Number(s): [id number] ? cc: Kathy Hair MD; Terrence Chris MD ? Report Number: ?? [id number]: Total DLP = ??231.00 mGy-cm ?ADDENDUM ?? [...] by John Yarbrough MD in OV> ?11/13/24 0855 ? DD/ 0854 ? TD/TT: 11/13/24 0854 ? Psychology Assistant: ? Procedure Note Briana, Image - 11/13/[address] [address] [address] Scan Report Signed with Razia Patient: Jerrell Herrera#: [id number] : 1970Acct:[id number] Age/Sex: 54 / MADM Date: 11/13/24 Loc: HO.CT Attending Dr: Terrence Chris MD Ordering Physician: Terrence Chris MD Date of Service: 11/13/24 Procedure(s): CT chest wo IV con Accession Number(s): [id number] cc: Kathy Hair MD; Terrence Crhis MD Report Number: [id number]: Total DLP = 231.00 mGy-cm ADDENDUM This [...] signed by John Yarbrough MD in OV> 11/13/24854 DD/ 3 TD/TT: 02/21/25 0854 Psychology Assistant: us [facility] External Provider IMG CT PROCEDURES Edited Result - Final * (ABNORMAL) Hemoglobin A1c (09/15/2024 10:59 AM EST) Hemoglobin A1c 6.5(H) <6.0 % [facility] Comment:Hemoglobin A1C Refer ence Range Adults: 4.8 - 6.0 % Non diabetic: < 6.0 % Goal: < 7.0 %Additional Action Suggested: > 8.0 %Note: Hemoglobin A1c results are invalid for patients with abnormal amounts of HbF. Blood transfusions may impact the HbA1c concentration in the patient sample. Estimated Average Glucose 140 mg/dL [facility] Comment:eAG = Estimated ave rage glucose which is %A1C expressed asaverage glucose, using the formula of the E1I-QcscfokAghqews Glucose study (ADAG), Diabetes Care, Vol.31,#8,Apr. 2007 Blood Venous blood specimen / Unknown 09/15/2024 10:59 AM EST 09/15/2024 1:13 PM EST us Kathy Jennings MD LAB BLOOD ORDERABLES Final Result [facility] [address] [place] [phone] * (ABNORMAL) Lipid Panel, Standard (09/15/2024 10:59 AM EST) Triglycerides 134 <150 mg/dL [facility] Comment:Desirable Triglyceri de: less than 150 mg/dLBorderline High Triglyceride 150-199 mg/dLHigh Triglyceride: 200-499 mg/dLVery High Triglyceride: greater than or equal to 5OO mg/dL Cholesterol 180 <200 mg/dL [facility] Comment:Desirable Cholestero l: less than 200 mg/dLBorderline High Cholesterol: 200-239 mg/dLHigh Cholesterol: greater than 239 mg/dL LDL Cholesterol Calculated 119(H) <100 mg/dL [facility] Comment:Desirable LDL: less than 100 mg/dLNear Optimal/Above Optimal LDL: 110- 129 mg/dLBorderline High LDL: 130-159 mg/dLHigh LDL: 160-189 mg/dLVery High LDL: greater than or equal to 190 mg/dL HDL Cholesterol 35(L) >40 mg/dL [facility] Comment:Desirable HDL: great er than 40 mg/dL Note: This HDL assay may give artificially low results in patients with liver disease. Blood Venous blood specimen / Unknown 09/15/2024 10:59 AM EST 09/15/2024 1:13 PM EST us Kathy Jennings MD LAB BLOOD ORDERABLES Final Result [facility] [address] [place] [phone] from Last 3 Months or Most Recently Relevant to Health Maintenance Insurance [facility] C3 Care Teams Concept Artist Relationship Specialty Start Date End Date Kathy Hair MD [address] [place] [phone] PCP - General Internal Medicine 09/15/24
--- OUTSIDE RECORDS SUMMARY | 2025-02-09 10:43 | XMS_ITS | Encounter Summary ---
Author Organization [employer] Address [address] [facility] 7t [place] [address] Care Team Providers Care Order Dispatcher Chief Name Role Phone Kathy Hair MD Primary Care Provide r Reason for Visit * Reason Comments Med Refill Encounter Details Date Type Department Care Team (Late Contact Info) Description 04/21/2024 Refill [facility] [address] [place] [phone] Name, MD Wenceslao [address] [place] [phone] Essential hypertension Social History Tobacco Use Types [...] Description 03/04/2025 10:00 AM EDT Office Visit [facility] [address] [place] [phone] Kathy Hair MD [address] [place] [phone] documented as of this encounter Visit Diagnoses Diagnosis Essential hypertension Unspecified essential hypertension documented in this encounter Care Teams Order Dispatcher Chief Relationship Specialty Start Date End Date Kathy Hair MD [address] [place] [phone] PCP - General Internal Medicine 09/15/24 documented as of this encounter
--- OUTSIDE RECORDS SUMMARY | 2025-02-09 10:43 | XMS_ITS | Encounter Summary ---
Author Organization [employer] Address [address] [place] [address] Care Team Providers Care Sheet Metal Journeyman Name Role Phone Kathy Hair MD Primary Care Provide r Reason for Visit * Reason Comments Med Refill Encounter Details Date Type Department Care Team (Late Contact Info) Description 07/15/2024 Refill [facility] [address] [place] [phone] Kenan Mays MD [address] [place] [address] Essential hypertension Social History Tobacco Use Types [...] Description 03/04/2025 10:00 AM EDT Office Visit [facility] [address] [place] [phone] Kathy Hair MD [address] [place] [phone] documented as of this encounter Visit Diagnoses Diagnosis Essential hypertension Unspecified essential hypertension documented in this encounter Care Teams Sheet Metal Journeyman Relationship Specialty Start Date End Date Kathy Hair MD [address] [place] [phone] PCP - General Internal Medicine 09/15/24 documented as of this encounter
--- OUTSIDE RECORDS SUMMARY | 2025-02-09 10:43 | XMS_ITS | Data Portability ---
Author Organization [place] - [facility] Address [address] [place] [address] Care Team Providers Care Body Make Up Artist Name Role Phone DISHA CALLEJAS Primary Care Provider DISHA CALLEJAS Referring Provider [phone] Assessment No assessment recorded. Plan of Treatment Reminders Order Date Submit Date Provider Last Modified By Organization Details Last Modified Time Details Appointments None recorded. Lab urinalysis, dipstick [address] ([facility]), [address], [place], [address], 08:13:50 culture, urine 2021 [facility], [address] [place], [address], 10:17:56 HbA1c (hemoglobin A1c), blood 2021 [email or web address] [facility], [address] [place], [address], 10:40:35 CMP, serum or plasma 2021 [facility], [address] [place], [address], 17:17:13 lipid panel, serum 2021 [facility], [address] [place], [address], 2 17:17:14 Referral gastroenter ologist referral 2021 [facility] [place] [address] - Gi, [address] [facility], [address], [place], [address], 08:26:45 nutritionis t/dietitian referral 2020 021 [email or web address] 4 [facility] (Nutrition Services), [address] [place], [address], 15:42:35 Procedures None recorded. Surgeries None recorded. Imaging US, kidney - right kidney 2021 022 [facility] (Central Scheduling), [address] [place], [address], 2 08:54:00 Medication Orders diclofenac 1 % topical gel 2021 022 [facility]/Pharmacy #[id number], [address] [place], [place], [id number], 2 12:33:58 metronidazo le 500 mg tablet [address]/Pharmacy #[id number], [address] [place], [place], [id number], 13:50:46 Cipro 500 mg tablet [address]/Pharmacy #[id number], [address] [place], [place], [id number], 2 13:50:40 Patient Targets Encounter Date Encounter Id Patient Goals Patient Target Last Modified By Organization Details Last Modified Time Goals:1. Promote weight loss of 1# per week.2. Promote BGlu management with HbA1C <5.7%3. Promote lipid panel WNL.4. Promote regular physical activity. 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 Laboratory Department [address] [place], [address] 10/26/2021 16:50:52 10/26/1910/26/2021 COMPR EHENS MACIE MET. PANEL sodium 136 mmol/ L 136-14 5 normal Not Available [facility] Laboratory Department [address] [place], [address] 10/26/2021 17:17:12 10/26/19 22 10/26/2021 COMPR EHENS MACIE MET. PANEL potassium 4.0 mmol/ L 3.5-5. 1 normal Not Available [facility] Laboratory Department [address] [place], [address] 10/26/2021 17:17:12 10/26/19 22 10/26/2021 COMPR EHENS MACIE MET. PANEL chloride 100 mmol/ L 98-107 normal Not Available [facility] Laboratory Department [address] [place], [address] 10/26/2021 17:17:12 10/26/19 22 10/26/2021 COMPR EHENS MACIE MET. PANEL carbon dioxide 25.3 mmol/ L 22-29 normal Not Available [facility] Laboratory Department [address] [place], [address] 10/26/2021 17:17:12 10/26/19 22 10/26/2021 COMPR EHENS MACIE MET. PANEL anion gap 15 mmol/ L 10-20 normal Not Available [facility] Laboratory Department [address] [place], [address] 10/26/2021 17:17:12 10/26/19 22 10/26/2021 COMPR EHENS MACIE MET. PANEL blood urea nitrogen 16 mg/dL 6-20 normal Not Available [facility] Laboratory Department [address] [place], [address] 10/26/2021 17:17:12 10/26/19 22 10/26/2021 COMPR EHENS MACIE MET. PANEL creatinine 0.79 mg/dL 0.70-1 .2 normal Not Available [facility] Laboratory Department [address] [place], [address] 10/26/2021 17:17:12 10/26/19 22 10/26/2021 COMPR EHENS [...] under the age of 18 Not Available [facility] Laboratory Department [address] [place] [address], [address] 10/26/2021 17:17:12 10/26/19 22 10/26/2021 COMPR EHENS MACIE MET. PANEL glucose 116 mg/dL 70-106 high Not Available [facility] Laboratory Department [address] [place] [address], [address] 10/26/2021 17:17:12 10/26/19 22 10/26/2021 COMPR EHENS MACIE MET. PANEL calcium 9.4 mg/dL 8.6-10 .3 normal Not Available [facility] Laboratory Department [address] [place] [address], [address] 10/26/2021 17:17:12 10/26/19 22 10/26/2021 COMPR EHENS MACIE MET. PANEL bilirubin total 0.4 mg/dL 0.2-1. 2 normal Not Available [facility] Laboratory Department [address] [place] [address], [address] 10/26/2021 17:17:12 10/26/19 22 10/26/2021 COMPR EHENS MACIE MET. PANEL aspartate amino transferase 23 U/L 5-40 normal Not Available [facility] Laboratory Department [address] [place] [address], [address] 10/26/2021 17:17:12 10/26/19 22 10/26/2021 COMPR EHENS MACIE MET. PANEL alanine aminotransfe rase 27 U/L 5-41 normal Not Available [facility] Laboratory Department [address] [place], [address] 10/26/2021 17:17:12 10/26/19 22 10/26/2021 COMPR EHENS MACIE MET. PANEL total protein 7.1 g/dL 6.4-8. 3 normal Not Available [facility] Laboratory Department [address] [place] [address], [address] 10/26/2021 17:17:12 10/26/19 22 10/26/2021 COMPR EHENS MACIE MET. PANEL albumin level 4.4 g/dL 3.5-5. 2 normal Not Available [facility] Laboratory Department [address] [place] [address], [address] 10/26/2021 17:17:12 10/26/19 22 10/26/2021 COMPR EHENS MACIE MET. PANEL globulin 2.7 gm/dL 2.0-3. 5 normal Not Available [facility] Laboratory Department [address] [place], [address] 10/26/2021 17:17:12 10/26/19 22 10/26/2021 COMPR EHENS MACIE MET. PANEL albumin globulin ratio 1.6 % 1.1-2. 5 normal Not Available [facility] Laboratory Department [address] [place], [address] 10/26/2021 17:17:12 10/26/19 22 10/26/2021 COMPR EHENS MACIE MET. PANEL alkaline phosphatase 60 U/L 40-129 normal Not Available [facility] Laboratory Department [address] [place] [address], [address] 10/26/2021 17:17:12 10/26/19 22 10/26/2021 LIPID PANEL WITH REFLE X triglyceride s w/ reflex LDL 208 mg/dL 30-150 high Refer ence Range s: <150 mg/dl Faby l 150-1 99 mg/dl Borde rline High 200-4 99 mg/dl High >500 mg/dl Very High Not Available [facility] Laboratory Department [address] [place] [address], [address] 10/26/2021 17:17:13 10/26/19 22 10/26/2021 LIPID PANEL WITH REFLE X cholesterol 148 mg/dL 100-20 0 normal Not Available [facility] Laboratory Department [address] [place] [address], [address] 10/26/2021 17:17:13 10/26/19 22 10/26/2021 LIPID PANEL [...] mg/dL Very high >190 mg/dL Not Available [facility] Laboratory Department [address] [place] [address], [address] 10/26/2021 17:17:13 10/26/19 22 10/26/2021 LIPID PANEL WITH REFLE X HDL cholesterol 37.9 mg/dL 40-60 low Major risk facto r for CHD: <40 mg/dL Negat macie risk facto r for CHD: >=60 mg/dL Not Available [facility] Laboratory Department [address] [place] [address], [address] 10/26/2021 17:17:13 10/26/19 22 10/26/2021 LIPID PANEL WITH REFLE X chol HDL ratio 3.91 Risk CHOL/ HDL CHOL/ HDL Ratio Male Femal e 1/2 AVERA GE 3.43 3.27 AVERA GE 4.97 4.44 2 X AVERA GE 9.55 7.05 3 X AVERA GE 23.39 11.04 Not Available [facility] Laboratory Department [address] [place] [address], [address] 10/26/2021 17:17:13 12/06/19 22 12/05/2021 URINE CULTU [...] ----- -- PATIE NT: Nancy Wilcox ACCT: [id number] [facility] U: [id number] AGE/S X: 51/M ROOM: RE12/[address]: Aurelia carver : 05/27 BED: DIS: STATU S: DEP CLI TLOC: ----- ----- ----- ----- ----- ----- ----- ----- ----- ----- ----- ----- ----- ----- ----- ----- ----- ----- -- SPEC #: [id number] LUCRECIA: 12/05-U NK STATU S: COMP REQ #: [id number] RECD: 12/05- [address]: Aurelia carver [facility] E: Caleb mullen ENTR: 12/05- 751 [...] -- END OF REPOR T Not Available [facility] Laboratory Department [address], [place], [address] 12/07/2021 10:17:56 12/06/19 22 12/05/2021 urina lysis , dipst ick SPECIFIC GRAVITY 1.010 Not Available [facility] ([facility]) [address] [place], [address], 12/05/2021 08:06:56 12/06/19 22 12/05/2021 urina lysis , dipst ick PH 7.0 Not Available [facility] ([facility]) [address] [place], [address], 12/05/2021 08:06:56 12/06/19 22 12/05/2021 urina lysis , dipst ick LEUKOCYTES Neg Not Available [facility] ([facility]) [address] [place], [address], 12/05/2021 08:06:56 12/06/19 22 12/05/2021 urina lysis , dipst ick NITRITE Neg Not Available [facility] ([facility]) [address] [place], [address], 12/05/2021 08:06:56 12/06/19 22 12/05/2021 urina lysis , dipst ick PROTEIN Neg Not Available [facility] ([facility]) [address] [place], [address], 12/05/2021 08:06:56 12/06/19 22 12/05/2021 urina lysis , dipst ick GLUCOSE Neg Not Available [facility] ([facility]) [address] [place], [address], 12/05/2021 08:06:56 12/06/19 22 12/05/2021 urina lysis , dipst ick KETONE Neg Not Available [facility] ([facility]) [address], [place], [address], 12/05/2021 08:06:56 12/06/19 22 12/05/2021 urina lysis , dipst ick UROBILINOGEN Normal Not Available [facility] ([facility]) [address], [place], [address], 12/05/2021 08:06:56 12/06/19 22 12/05/2021 urina lysis , dipst ick BILIRUBIN Neg Not Available [facility] ([facility]) [address] [place], [address], 12/05/2021 08:06:56 12/06/19 22 12/05/2021 urina lysis , dipst ick BLOOD Neg Not Available [facility] ([facility]) [address], [place], [address], 12/05/2021 08:06:56 12/07/19 22 12/06/2021 [facility], [facility] [address] [facility] [place] [address] Ultras ound Report Signed Patien t: Sarabjit Castelan MR#: [id number] : [id number] Acct:H [id number] Age/Se x: 51 / M ADM Date: Loc: [facility]ATOR[facility] Attend ing Dr: Disha lilly MD Orderbrent Bowie kei: Disha lilly Date of Servic e: Proced ure(s) : US renal BI Access ion Number (s): [id number] H cc: Disha lilyl EXAM: US renal BI CLINIC AL INDICA [...] Transc riptio nist: [email or web address] [facility] [address] [place] [address], [address], 12/08/2021 08:15:53 Result Notes None recorded. Problems Name Problem SNOMED Code Status Onset Date Resolution Date Notes Provider Name and Address Organization Details Recorded Time Benign essential hypertensi on 9281881 Active 2019 Not Available [facility] 0 23:48:14 Hematemesi s 9820324 Active 2019 Carlton Hamilton MD [address] [place] [address]. [place], [address] , [facility] 0 17:09:26 COVID-19 583684134 Active 2020 Disha Callejas MD [address] [facility] [place], [address] , [facility] 15:39:26 Atrial fibrillati on 49417131 Active 2020 Disha Callejas MD [address] [facility] [place], [address] , [facility] 15:46:00 Glaucoma 82525374 Active 2020 Disha Callejas MD [address] [facility] [place], [address] , [facility] 15:46:06 Prediabete s 104210211 Active 2020 Disha Callejas MD [address] [place] [address] [place], [address] , [facility] 15:46:07 Nodule of lung 844014726 Active 2020 Disha Callejas MD [address] [place] [address] [place], [address] , [facility] 15:46:15 History of myocardial infarction 971573781 Active 2020 Disha Callejas MD [address] [place] [address] [place], [address] , [facility] 2 09:04:19 Left ventricula r hypertroph y 38464559 Active 2020 Disha Callejas MD [address] [place] [address] [place], [address] , [facility] 15:46:39 Erectile dysfunctio n 684409018 Active 2020 Disha Callejas MD [address] [facility] [place], [address] , [facility] 15:46:55 History of SARS-CoV-2 3643285365031 20061 Active 2020 [facility], [facility] 2 11:01:47 Myocardial infarction 77477720 Active 2021 Leora Castaneda, RN, BSN [facility], [facility] 2 08:51:03 Problem Notes None recorded. Procedures Surgical History Date Name Laterality Status Provider Name and Address Organization Details Recorded Time 12/07/19 22 Nutrition completed Monica Ferrara, , RDN, LDN [address] [place], [address], [facility] 12/29/2021 11:49:46 10/26/19 22 PHQ-9 Patient Health Questionnaire completed Disha Callejas MD [address] [place] [address], [address], [facility] 10/26/2021 11:40:38 06/16/20 20 PHQ-9 Patient Health Questionnaire completed Disha Callejas MD [address] [place] [address], [address], [facility] 06/16/2020 09:15:13 10/07/19 20 colonoscopy completed Disha Callejas MD [address] [place] [address], [address], [facility] 06/16/2020 08:45:24 partial nephrectomy completed Disha Callejas MD [address] [place] [address], [address], [facility] 04/07/2020 09:27:15 Imaging Results Imaging Date Name Status LastModified by Organiz ation Details LastModified Time 12/06/2021 US, kidney completed [email or web address] [address] [place], [address], 12/08/2021 08:15:53 Procedure Notes None recorded. Medical [...] Last Updated DateTime 187.96 cm 32.6 kg/m2 665225. 46 g 67 /min 97 % 97 % 138 mm[Hg] 92 mm[Hg] Ken Weldon MA [facility] 15:15:44 Date Recorded Systolic blood pressure Diastolic blood pressure Provider Name and Address Organization Details Last Updated DateTime 08/02/2021 132 mm[Hg] 84 mm[Hg] Disha Callejas MD [address] [place] [address], [address], [facility] 08/02/2021 15:47:45 Date Recorded Body height Body mass index (BMI) Body weight Oxygen saturation Oxygen saturation in Arterial blood by Pulse oximetry Heart rate Systolic blood pressure Diastolic blood pressure Systolic blood pressure Diastolic blood pressure Provider Name and Address Organization Details Last Updated DateTime 2 187.96 cm 34 kg/m2 818787. 98 g 95 % 95 % 71 /min 128 mm[Hg] 100 mm[Hg] 130 mm[Hg] 102 mm[Hg] Catherine Ramirez [facility] 2 11:05:16 Date Recorded Body height Body mass index (BMI) Body weight Heart rate Systolic blood pressure Diastolic blood pressure Provider Name and Address Organization Details Last Updated DateTime 2 187.96 cm 33.5 kg/m2 693174. 61 g 64 /min 124 mm[Hg] 84 mm[Hg] Yandy Azizakurt [facility] 2 07:47:48 Date Recorded Body height Body mass index (BMI) Body weight Provider Name and Address Organization Details Last Updated DateTime 12/06/2021 187.96 cm 33.4 kg/m2 382078.02 g Monica Ferrara, MS, RDN, LDN [address] [place], [address], [facility] 12/06/2021 09:26:01 Date Recorded Body height Body mass index (BMI) Body weight Heart rate Oxygen saturation Oxygen saturation in Arterial blood by Pulse oximetry Systolic blood pressure Diastolic blood pressure Provider Name and Address Organization Details Last Updated DateTime 2 187.96 cm 33.7 kg/m2 233305 g 64 /min 98 % 98 % 123 mm[Hg] 82 mm[Hg] Peri Cazares [facility] 2 12:22:10 Social History Question Answer Notes LastModified by Organizat ion Details LastModified Time Tobacco Smoking Status Never Smoker Disha Callejas MD [address] [place], [address], [facility] 04/07/2020 09:18:54 How Much Tobacco Do You Chew? None Information not available 04/07/2020 Which Illicit Or Recreational Drugs Have You Used? Denies Information not available 04/07/2020 Hepatitis C Screen 06/16/2020 Nonreactive Information not available 06/17/2020 Tobacco Use (smoking, Smokeless Tobacco) No Information not available 04/07/2020 Date Of Tobacco Screen 08/01/2021 [email or web address] Information not available 08/01/2021 Members Of Household 1 Information not available 04/07/2020 Marital Status Informatio n not available 04/07/2020 What Was The Date Of Your Most Recent Tobacco Screening? 10/26/2021 [email or web address] Information not available 10/26/2021 How Many Children Do You Have? 4 Information not available 04/07/2020 What Is Your Relationship Status? [email or web address] Information not available 08/01/2021 Sex: Unknown Functional Status Question Answer Note LastModified by Organizat ion Details LastModified Time Do you use any illicit or recreational drugs? No [email or web address] Information not available 08/01/2021 What is your level of alcohol consumption? None Information not available 04/07/2020 What is your occupation? unemployed Information not available 04/07/2020 Mental Status None recorded. Family History Relationship [...] Recorded Time zoster recombinant 0 completed AURY Ballesteros, [facility] 08/01/2021 15:38:02 COVID-19, mRNA, LNP-S, PF, 30 mcg/0.3 mL dose 1 completed Disha Callejas MD [address] [place], [place] [address], [address], [facility] 10/26/2021 11:31:11 COVID-19, mRNA, LNP-S, PF, 30 mcg/0.3 mL dose 1 completed Disha Callejas MD [address] [place], [place] [address], [address], [facility] 10/26/2021 11:31:11 Influenza, split virus, quadrivalent, PF 8 completed Disha Callejas MD [address] [place] [address] [place], [address], [facility] 10/26/2021 11:31:11 Influenza, split virus, trivalent, preservative 4 completed Disha Callejas MD [address] [place] [address] [place], [address], [facility] 10/26/2021 11:31:11 Influenza, split virus, trivalent, preservative 7 completed Disha Callejas MD [address] [place] [address] [place], [address], [facility] 10/26/2021 11:31:11 Influenza, split virus, quadrivalent, PF 1 completed Disha Callejas MD [address] [place] [address] [place], [address], [facility] 10/26/2021 11:31:11 Influenza, split virus, quadrivalent, PF 0 completed Disha Callejas MD [address] [place] [address] [place], [address], [facility] 10/26/2021 11:31:11 Influenza, split virus, trivalent, preservative 1 completed Disha Callejas MD [address] [place] [address] [place], [address], [facility] 10/26/2021 11:31:11 pneumococcal polysaccharide PPV23 1 completed Disha Callejas MD [address] [place], [place] [address], [address], [facility] 10/26/2021 11:31:11 Influenza, split virus, trivalent, preservative 5 completed Disha Callejas MD [address] [place] [address] [place], [address], [facility] 10/26/2021 11:31:11 Influenza, split virus, trivalent, preservative 2 completed Disha Callejas MD [address] [place] [address], [address], [facility] 10/26/2021 11:31:11 Influenza, split virus, trivalent, preservative 6 completed Disha Callejas MD [address] [place] [address], [address], [facility] 10/26/2021 11:31:11 Influenza, split virus, trivalent, preservative 3 completed Disha Callejas MD [address] [place] [address], [address], [facility] 10/26/2021 11:31:11 Td (adult), 2 Lf tetanus toxoid, preservative free, adsorbed 1 completed Disha Callejas MD [address] [place] [address], [address], [facility] 10/26/2021 11:31:11 Tdap 0 completed Yandy Irizarry CMA [facility], [facility] 06/16/2020 09:19:12 Past Encounters Encounter ID Performer Location Encounter Start Date Encounter Closed Date Diagnosis/Indication Diagnosis SNOMED-CT Code Diagnosis ICD10 Code Diagnosis Note [id number] Disha Callejas MD [address] [address] 04/07/2020 09:07:08 04/07/2020 09:33:17 Benign essential hypertension 4696102 I10 Patient has a history of hypertensi on for which he has been taking amlodipine 5mg and lisinopril 40mg daily. His blood pressure is currently well controlled . He will continue current medication s which were prescribed today. He will follow-up in 2 months for a physical. Glaucoma 54302175 H40.9 Patient has a history of glaucoma for which he uses eye drops. He has no refills at this time, but has an appointmen t scheduled with an eye doctor next month. Gastroesop hageal reflux disease 231834488 K21.9 Patient has a history of GERD for which he has been taking omeprazole 20mg daily. He notes that while he was in retirement, he got a colonoscop y and was supposed to get an endoscopy as he intermitte ntly has been spitting up blood. GI referral placed and omeprazole refilled. History of malignant neoplasm of kidney 705074318 Z85.528 Patient has a history of a renal tumor which was removed in 2013. He has not had significan t follow-up since then. Recommende d nephrology evaluation . Referral placed. [id number] Disha Callejas MD [address] [address] 06/16/2020 08:29:53 06/16/2020 09:11:41 Adult health examination 532585690 Z00.00 Patient should discuss medical decisions with [facility] Care Proxy. Recommende d screenings included colonoscop y screening age 50, earlier based on family history/ri sk factors; one time screen for hepatitis C if born between 2756-9808 or has risk factors. Reviewed vaccines and current recommenda tions. Basic health topics include aerobic exercise, importance of healthy/ba lanced diet and minimizing caffeine and alcohol. Administra tion of diphtheria, pertussis, and tetanus vaccine 162367903 Z23 Patient due for Tdap vaccinatio n. Administer ed today. Screening for malignant neoplasm of colon 513526966 Z12.11 Patient reports a colonoscop y in September of 2019 while he was in retirement. No records available, but states he has a history of polyps. Will plan for follow-up colonoscop y in 3-5 years. Varicella vaccination 68 640554 Z23 Patient due for shingles vaccinatio n. Prescribed to his pharmacy. Benign ess ential hypertension 4125426 I10 Patient has a history of hypertensi on for which he has been taking amlodipine 5mg and lisinopril 40mg daily. His blood pressure is currently well controlled . He will continue current medication s which were prescribed today. He will follow-up in 2 months for a physical. At [facility] risk of sexually transmitted infection 015979576 Z20.2 Patient was recently in retirement and would like to be tested for STDs. Blood and urine obtained for testing today. Hyperlipid emia screening 330138885 Z13.220 Patient due for hyperlipid emia screening. Lipid panel obtained today. Large prostate 947678632 N40.0 Patient has a slightly enlarged prostate on examinatio n. Will check PSA today. Impotence of organic origin 696553446 N52.9 Patient has been struggling with getting and maintainin g an erection. Discussed risks and benefits of medication . Prescribed sildenafil 50mg daily as needed. Patient will follow-up if not improving. Hemorrhoids 57188924 K64 .9 Patient has internal hemorrhoid s which are causing him pressure and discomfort . Prescribed hydrocorti sone cream to use topically and help his symptoms. [id number] Carlton Hamilton MD [facility] [address] [place] [address] [address] [place] [address] 07/18/2020 16:45:30 07/18/2020 17:23:52 Hematemesis 8261465 K92.0 A few episodes of bringing up blood (he thinks from the stomach) in Aug and wishes an EGD. No melena. No other red flag ROS. On PRN omeprazole for occasional upper GI ROS. S/p distant treated H.Pylori without check of eradicatio n. Family his tory of cancer of colon [id number] Z80.0 Father History of polyp of colon [id number] Z86.010 On prior colons [id number] Donna Segal MD [facility] [address] [place] [address] [address] [place] [address] 07/31/2020 14:46:41 07/31/2020 14:47:09 Viral screening [id number] Z11.59 [id number] Vlad Escalera NP [facility] [address] [place] [address] 09/19/2020 12:23:54 09/19/2020 12:48:00 Onychomycosis due to dermatophyte [id number] B35.1 Patient educated about onychomyco sis and that the process to treat this can take some time. Patient will start on medication as directed and is aware of the side effects. Patient will follow up if no improvemen t after 1 month. If no improvemen t then try oral medication . Patient can call with any concerns. History of myocardial infarction [id number] I25.2 Patient stated he had a heart attack back in 2016 and had a pain a couple months ago which scared him. Patient hasn't had pain since. Patient would like a referral to cardiology . [id number] Donna Segal MD [facility] [address] [place] [address] [address] [place] [address] 10/07/2020 16:21:41 10/07/2020 16:22:35 Viral screening [id number] Z11.59 [id number] Disha Callejas MD [address] [address] 08/02/2021 15:02:27 08/02/2021 16:13:54 COVID-19 [id number] U07.1 Estefania was hospitaliz ed from 07/14/21-1 at [facility] for COVID-19 infection and pneumonia. He was treated with remdesivir and ceftriazon e/azithrom ycin. He is feeling much better, but continues to have a slight cough and some fatigue. Encouraged patient to work on rebuilding his stamina and use honey or cough drops to help with his cough. Patient will follow-up as needed. Prediabetes [id number] R7 3.03 Patient has a history of prediabete s. [facility] placed. Benign ess ential hypertension [id number] I10 Patient has a history of hypertensi on for which he has been taking chlorthali done 12.5mg daily and lisinopril 40mg daily. His blood pressure is currently well controlled . He will continue current medication s which were prescribed today. He will follow-up in 2 months or earlier as needed. [id number] Disha Callejas MD [address] [address] 10/26/2021 10:51:54 10/26/2021 11:39:09 Adult health examination [id number] Z00.01 Patient should discuss medical decisions with Health Care Proxy. Recommende d screenings included colonoscop y screening age 50, earlier based on family history/ri sk factors; one time screen for hepatitis C if born between [id number] or has risk factors. Reviewed vaccines and current recommenda tions. Basic health topics include aerobic exercise, importance of healthy/ba lanced diet and minimizing caffeine and alcohol. Administra tion of diphtheria, pertussis, and tetanus vaccine [id number] Z23 Patient is up to date, received TDAP in 2020. Screening for malignant neoplasm of colon [id number] Z12.11 Patient reports a colonoscop y in September of 2019 while he was in retirement. No records available, but states he has a history of polyps. Will plan for follow-up colonoscop y in 3-5 years. Viral screening [id number] 4 Z11.59 Non-reacti ve screening in 2020. Varicella vaccination 68 589870 Z23 Patient due for shingles vaccinatio n. Prescribed to his pharmacy. Benign ess ential hypertension [id number] I10 Patient has a history of hypertensi [...] controlled with emtoprolol succinate 50mg daily. Prediabetes 368353709 R7 3.03 Patient has a history of prediabete s. Will check blood work today. Nodule of lung [id number] R91.1 Patient was found to have a mass in his right lung. He is seeing pulmonolog y at [facility] and has had follow-up scans which demonstrat ed no growth of the area. History of partial nephrectomy [id number] Z90.5 Patient has a history of a partial nephrectom y for a mass on the kidney years ago. He is now having right flank pain which he states as the same as prior to his partial nephrectom y. Will obtain an ultrasound to evaluate the remaining kidney. Hematemesis [id number] K92. 0 Patient has a history of coughing up blood and hematemesi s (although has not vomited recently). He has had evaluation s of his lungs and is interested in an endoscopy to check his esophagus. Referral placed to GI. [id number] Caryn Jauregui NP [address] [address] 12/05/2021 07:39:05 12/05/2021 08:06:25 Left lower quadrant pain [id number] R10.32 He states he has been having [...] with no improvemen t in symptoms. Diverticulitis [id number] K57.92 Patient noted with left lower quadrant [...] or with no improvemen t in symptoms. [id number] Monica Ferrara MS, RDN, LDN [facility] [address] [place] [address] [address] [place] [address] 12/06/2021 08:04:43 12/06/2021 10:40:31 Prediabetes [id number] R73.03 Summary of Visit:Gi saavedra is a 51 year old primarily [place] speaking male referred for prediabete s. Jyoti [...] Reviewed the primary dietary sources of carbohydra rsa and the importance of emphasizin g fiber-rich [...] food groups/lis ts- What Can I Eat? [place] handout- Healthy Snack [place] handout- Healthy Plate [place] handout Educator Assessed Learning Barriers: language barrier [id number] Vlad Escalera NP [facility] [address] [place] [address] 01/04/2022 12:15:26 01/04/2022 12:39:32 Arthritis of left knee [id number] M13.862 Suspected arthritis along with meniscus wear [...] Recorded Advance Directives Directive None Recorded Payers Insurance Date Sequence Insurance Name Policy Number Policy Girard Covered Member ID Girard Member ID Guarantor Name 08/02/2021 1 [place] [facility]ai Vogelsonet [id number] Jai Javier 10/31/2022 1 [facility] [employer] (MEDICAID HMO) [id number] Jai Javier [id number] Jai Javier 08/02/2021 2 [place] [facility] Jai Javier [id number] Jai Javier Notes Date Note Type Note Provider Name and Address Organization Details Recorded Time 08/02/2021 text/html Patient is a 51 year old male who presents today for a hospital follow-up. He was hospitalized from 07/14/21-07/18/21 for COVID. He was hospitalized at [facility]. He got antibiotics (ceftriaxone and azithromycin for pneumonia) and remdesivir while he was hospitalized. He is feeling much better since he got out of the hospital. Disha Callejas MD [address] [place] [address], [phone], [facility] 08/02/2021 15:50:26 10/26/2021 text/html Patient is [...] prior to having surgery. Disha Callejas MD [address] [place] [address], [phone], [facility] 10/26/2021 11:40:45 12/05/2021 text/html Patient is [...] 2019 that showed diverticulosis. 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 Social Support:Primary Support Person: self, GFLiving Arrangements: lives with GF Previous Diet Education/Training:Pr evious Visit with Dietitian: none Meals and Dining:Meals per day:Snacks per day:Skips meals:Recent dietary changes: eating less latelySpecial diets in the past:Food Allergy or intolerances: none reportedPrimary Automotive Parts Counter Associate: usually ptPrimary Food Stroboroma Operator:bothDining Out frequency: 1x per weekAlcohol Intake: noneSupplements: Diet recall:- Breakfast: sandwich w/ 1 slice ham and 1 slice cheese, 2 eggs, on potato bread- Lunch: chicken with djiboutian fries OR empanadas OR sometimes mixed veggies [...] me Monica Ferrara, MS, RDN, LDN [address] [place], [address], [facility] 12/29/2021 12:04:04 01/04/2022 text/html Patient is [...] tingling or swelling. Disha Callejas MD [address] [place], [address], [facility] 01/04/2022 16:38:41
--- OUTSIDE RECORDS SUMMARY | 2025-02-09 10:43 | XMS_ITS | Encounter Summary ---
Author Organization [employer] Address [address] [place] [address] Care Team Providers Care Forestry Tree Pruner Name Role Phone Kathy Hair MD Primary Care Provide r Encounter Details Date Type Department Care Team (Latest Contact Info) Description 02/09/2025 Travel Social History Tobacco Use Types Packs/Day Years [...] 03/04/2025 10:00 AM EDT Office Visit [facility] [address] [place] [address] Kathy Hair MD [address] [place] [address] documented as of this encounter Visit Diagnoses Not on filedocumented in this encounter Additional Health Concerns Assessment Noted Time PHQ-9 Depression Total Score: 0 09/15/20 10:07 AM EST documented as of this encounter Care Teams Forestry Tree Pruner Relationship Specialty Start Date End Date Kathy Hair MD [address] [place] [address] PCP - General Internal Medicine 09/15/24 documented as of this encounter
== END 2025-02-09 09:44 | disposition home or self-care (01) ==
LOC: HO.HHCX 09:43
PROVIDERS: Visit Provider Emergency Medicine
DX: M25.511 Pain in right shoulder (principal); G89.29 Other chronic pain; M54.2 Cervicalgia
CPT/HCPCS: 72040; 73030

== ENCOUNTER → 2025-02-09 09:43 | Outpatient (BNV) | payer MEDICAID, SELFPAY | PROVIDERS: Visit Provider Radiology Diagnostic Radiology | DX: M47.892 Other spondylosis, cervical region (principal); Z18.10 Retained metal fragments, unspecified | CPT/HCPCS: 72040; 73030 ==

== ENCOUNTER 2025-03-08 03:49 | Inpatient (IN) | payer OTHER, SELFPAY ==
[2025-03-08] VITALS (13 sets, daily range): BP systolic 90–126; BP diastolic 42–78; PULSE 70–108; RESP 15–20; TEMP 36.3–37.5; O2SAT 91–97; BMI 33.2; BMI 34.0
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
--- NOTE | ~2025-03-08 | US_ITS ---
CLINICAL HISTORY: scrotal edema US scrotum with Doppler Comparison: None Technique: Real time sonographic imaging, including color-flow imaging and spectral analysis, was performed by the redevelopment specialist. Multiple guest service representative static images were saved for review. Findings: Right testicle normal size and echotexture, 5.5 x 3.3 x 2.8 cm. Left testicle normal size and echotexture, 4.5 x 3.1 x 3.1 cm. Flow assessment is suboptimal. Flow along periphery of both testes is confirmed. No definite central flow is identified. This may be due to technical or artifactual factors. Nonspecific bilateral scrotal wall edema. Moderate bilateral scrotal hydroceles. No significant epididymal abnormalities. Impression: Scrotal wall edema with moderate bilateral hydroceles Vascular assessment is somewhat limited as above Peripheral flow is confirmed, central flow is not identified This document has been electronically signed by: Willie Hayes MD on 03/17/2025 22:18:04
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
[2025-03-08 04:30] LABS: Hematocrit 39.6 % (42.0-52.0); Hemoglobin 13.8 g/dl (14.0-18.0); Imm Gran Abs Auto 0.01 X10*3/uL (0.00-0.03); Imm Gran Pct Auto 0.1 % (0.0-0.4); Lymphocytes Absolute Auto 1.7 X10*3/uL (1.2-4.9); MANUAL DIFF FLAG NO; Mean Corpuscular HGB Conc 34.8 g/dl (31.0-36.0); Mean Corpuscular Hemoglobin 29.5 pg (27.0-33.0); Mean Corpuscular Volume 84.6 fL (80.0-98.0); NRBC Abs Auto 0.000 X10*3/uL (0.0-0.012); NRBC Pct Auto 0.0 /100WBC (0.0-0.2); Platelet Count 256 X10*3/uL (160-400); Red Blood Count 4.68 X10*6/uL (4.60-5.80); White Blood Count 7.0 X10*3/uL (4.8-10.8)
[2025-03-08 04:31] LABS: Appearance Urine Clear; Glucose Urine UA Negative (Negative); PH 5.5 (5.0-9.0); Specific Gravity - Urine 1.025 (1.005-1.025)
[2025-03-08 04:43] LABS: Alanine Aminotransferase 25 U/L (0-40); Albumin Level 3.9 g/dL (3.5-5.0); Alkaline Phosphatase 50 U/L (39-117); Anion Gap 14 (12-20); Aspartate Amino Transferase 23 U/L (5-37); Blood Urea Nitrogen 23 mg/dL (9-16); Calcium 9.1 mg/dL (8.4-10.2); Carbon Dioxide 26 mmol/L (22-29); Chloride 103 mmol/L (96-108); Creatinine Clr Calc Pharmacy 124.9; Estimated Glomerular Filt Rate > 60; Lipase 38 U/L (8-78); Potassium 3.8 mmol/L (3.3-5.1); Sodium 139 mmol/L (135-145); Total Protein 7.0 g/dL (6.5-8.0)
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
--- NOTE | 2025-03-08 08:21 | PC.NURSE ---
raquel medicated with toradol for pain. s/p pain medication administration patient began yelling out which patient had not been doing previously. provider to order more pain medications at this time.
[2025-03-08] MEDS: iohexoL 350 MG/ML 100 ML INFUS..BTL IV (09:35)
--- NOTE | 2025-03-08 10:27 | ECG_ITS ---
Test Reason : PREOP Blood Pressure : */* mmHG Vent. Rate : 114 BPM Atrial Rate : 114 BPM P-R Int : 176 ms QRS Dur : 86 ms QT Int : 310 ms P-R-T Axes : 30 -33 36 degrees QTcB Int : 427 ms Sinus tachycardia Possible Left atrial enlargement Left axis deviation Nonspecific T wave abnormality Abnormal ECG When compared with ECG of 23-Jan-2025 00:05, Vent. rate has increased by 43 bpm QRS axis Shifted left Nonspecific T wave abnormality now evident in Lateral leads Referred By: Caio Waldron Electronically Signed By: Forest Arriaza
--- NOTE | 2025-03-08 10:47 | PC.NURSE ---
delay in antibiotics d/t patient being a difficult stick. met with surgery, plan for admission.
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
[2025-03-08 11:13] LABS: INTERNATIONAL NORM RATIO 1.0 (0.9-1.1); Prothrombin Time 11.3 SEC (10.9-12.4)
[2025-03-08 11:15] LABS: Partial Thromboplastin Time 29.7 SEC (26.0-36.8)
--- NOTE | 2025-03-08 12:03 | PHA.MEDREC ---
Addendum entered by Nadiya Murillo RPh 03/08/25 12:27: MED REC REVIEWED BY [facility] Original Note: Pharmacy Consult ? Medication Reconciliation Pharmacy has completed the medication reconciliation. Spoke with pt and family at bedside (who was able to interperate for pt) who were able to confirm pt medications. Pt states he is not taking the Tadalafil 10mg anymore and states he has not in a few months , despite claims showing he got a 20 day supply on 02/22.
--- NOTE | 2025-03-08 12:28 | PC.NURSE ---
Pt found to be hypotensive and O2 90 on RA. Put on 4L oxymask. Now at 94%. Reached out to provider. Ordered NS bolus. Pt denies any pain or difficulty breathing
[2025-03-08 13:02] LABS: Reflex Lactate? Lactic Acid Added
--- NOTE | 2025-03-08 13:31 | PC.NURSE ---
patient remains on the oxymask at this time, appears to be sleeping with even and unlabored respirations.
[2025-03-08 13:43] LABS: ~Lactic Acid-LAB USE ONLY 2.2 mmol/L (0.5-2.0)
[2025-03-08 15:17] LABS: Reflex Lactate? 2 Y
[2025-03-08 15:53] LABS: ~Lactic Acid-LAB USE ONLY 1.2 mmol/L (0.5-2.0)
[2025-03-08] MEDS: Lactated Ringers 1,000 ML 125 ML IVCONT (15:56)
--- NOTE | 2025-03-08 16:24 | HO.PM.IMCN ---
History of Present Illness Data of Consult Service Date: 03/08/25 Requesting physician: Teodoro Bejarano Primary Care Provider: [facility] Reason for consult: Medical management 54 year old male presenting with complaints of sudden onset abdominal pain beginning last night. The pain was felt in the lower abdomen extending into the left upper quadrant. He denied nausea, vomiting, fever but did feel chills. He denied any changes in his bowel habits. He has a previous history of diverticulosis but denies a history of diverticulitis.Subsequent CT abdomen and pelvis revealed evidence of free intraperitoneal air with evidence of diverticulitis. There is some interloop ascites noted as well. Admitted to surgical service. Consult requested Review of Systems Review of Systems: Denies chest pain Denies shortness of breath Denies nausea vomiting diarrhea Denies fever chills [facility] Medical History (Updated 03/08/25 @ 16:30 by Kb Garcia DO) Hypertension Diabetes Renal cancer Dyspnea Chest pain Abnormal chest x-ray Hemoptysis Social History Alcohol intake: never Patient Tobacco Use Status: Never used Tobacco Smoked in Last 30 Days: No Use of substances other than those prescribed or required for medical reasons: No Advance Directives: No Advance Directives Information Provided: No Do you have a plan to hurt others: No Plan Current occupational status: employed 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 Allergies Allergy/AdvReac Type Severity Reaction Status Date / Time No Known Allergies Allergy Mild NONE Verified 03/08/25 04:01 Active Medications: Current Medications Hydromorphone HCl (Hydromorphone Hcl 0.5 Mg/0.5 Ml Syringe) 0.5 mg IVPUSH Q3H PRN; Protocol PRN Reason: Pain, Severe (Pain Scale 7-10) Lactated Ringer's (Lr) 1,000 mls @ 125 mls/hr IVCONT .Q8H BO Last Admin: 03/08/25 15:56 Dose: 125 mls/hr Acetaminophen (Ofirmev) 1,000 mg in 100 mls @ 400 mls/hr IV Q6H PRN PRN Reason: Pain, Mild (Pain Scale 1-3) Piperacillin Sod/Tazobactam (Sod 3.375 gm/ Sodium Chloride) 50 mls @ 100 mls/hr IV Q6H BO Ondansetron HCl (Ondansetron Hcl 4 Mg/2 Ml Vial) 4 mg IVPUSH QID PRN PRN Reason: Nausea Oxycodone HCl (Oxycodone Hcl Immed Release 5 Mg Tablet) 5 mg PO Q6H PRN PRN Reason: Pain, Moderate(Pain Scale 4-6) Home Medications ?Medication ?Instructions ?Recorded ?Confirmed ?Last Taken ?Type hydrochlorothiazide 25 mg tablet 25 mg PO DAILY 09/29/24 03/08/25 03/07/25 History ciclopirox 8 % topical solution 1 appl topical BEDTIME PRN Fungal 03/08/25 03/08/25 Unknown History Infection cyclobenzaprine 10 mg tablet 10 mg PO BEDTIME PRN pain 03/08/25 03/08/25 Unknown History Physical Exam Vital Signs and Narrative: Vital Signs: Last Vital Signs Temp 98.4 F 03/08/25 15:34 Pulse 106 H 03/08/25 15:34 Resp 18 03/08/25 15:34 BP 105/58 L 03/08/25 15:34 Pulse Ox 96 03/08/25 15:34 O2 Del Method Oxymask 03/08/25 15:34 O2 Flow Rate 4 03/08/25 15:34 BMI result Body Mass Index 33.2 Const: Other: Awake alert comfortable Resp: Other: Clear to auscultation bilaterally no rales rhonchi or wheezes Cardio: Other: No S4; positive S1-S2; no S3 murmurs rubs or gallops GI: Other: Soft diffusely tender with quiet bowel signs. Extrem: Other: No edema bilaterally Results Labs 03/08/25 04:24 03/08/25 04:24 Labs: Laboratory Results - last 24 hr 03/08/25 03/08/25 03/08/25 04:24 04:25 10:55 MCV 84.6 MCH 29.5 MCHC 34.8 RDW 13.0 Plt Count 256 MPV 10.3 Immature Gran % (Auto) 0.1 Neut % (Auto) 64.4 Lymph % (Auto) 23.9 [place] % (Auto) 8.7 Eos % (Auto) 2.0 Baso % (Auto) 0.9 Lymph # (Auto) 1.7 [place] # (Auto) 0.6 Eos # (Auto) 0.1 Baso # (Auto) 0.1 Abs Immat Gran (auto) 0.01 Absolute Neuts (auto) 4.5 Absolute Nucleated RBC 0.000 Nucleated RBC % (auto) 0.0 PT 11.3 INR 1.0 APTT 29.7 Anion Gap 14 Estim Creat Clear Calc 124.9 Estimated GFR > 60 Random Glucose 126 H Lactic Acid 2.1 H* Lactic Acid F/U @ 2Hr Lactic Acid F/U @ 4Hr Calcium 9.1 Total Bilirubin 0.3 Direct Bilirubin 0.1 AST 23 ALT 25 Alkaline Phosphatase 50 Total Protein 7.0 Albumin 3.9 Lipase 38 Urine Color Yellow Urine Appearance Clear Urine pH 5.5 Ur Specific [place] 1.025 Urine Protein Negative Urine Glucose (UA) Negative Urine Ketones Negative Urine Blood Negative Urine Nitrite Negative Ur Leukocyte Esterase Negative Blood Type A Positive Antibody Screen NEGATIVE 03/08/25 03/08/25 13:16 15:32 MCV MCH MCHC RDW Plt Count MPV Immature Gran % (Auto) Neut % (Auto) Lymph % (Auto) [place] % (Auto) Eos % (Auto) Baso % (Auto) Lymph # (Auto) [place] # (Auto) Eos # (Auto) Baso # (Auto) Abs Immat Gran (auto) Absolute Neuts (auto) Absolute Nucleated RBC Nucleated RBC % (auto) PT INR APTT Anion Gap Estim Creat Clear Calc Estimated GFR Random Glucose Lactic Acid Lactic Acid F/U @ 2Hr 2.2 H* Lactic Acid F/U @ 4Hr 1.2 Calcium Total Bilirubin Direct Bilirubin AST ALT Alkaline Phosphatase Total Protein Albumin Lipase Urine Color Urine Appearance Urine pH Ur Specific [place] Urine Protein Urine Glucose (UA) Urine Ketones Urine Blood Urine Nitrite Ur Leukocyte Esterase Blood Type Antibody Screen Imaging Radiologist's Impressions: Impressions Abdomen/Pelvis CT 03/08/25 08:14 IMPRESSION: 1. Acute sigmoid diverticulitis, perforated. Small amounts of free intraperitoneal air throughout the abdomen. 2. No discrete organized abscess identified. Trace interloop and pelvic ascites is present in the lower abdomen. 3. Additional ancillary findings as discussed in the body of the report. This critical result was discussed with Dr. Waldron of the [place] [facility] at 10:08 AM, 03/08/2025. It was ascertained that the content and urgency of the report was understood at the time of direct communication. Electronically signed by: Denis Beaulieu MD 03/08/2025 10:19 AM EDT RP Chest X-Ray 03/08/25 11:11 IMPRESSION: No gross pneumothorax. Poor inspiration. Overall stable chest. Electronically signed by: Torres Mas MD 03/08/2025 11:29 AM EDT RP Assessment and Plan (1) Perforation of sigmoid colon due to diverticulitis: Status: Acute (2) Diabetes: Qualifiers: Diabetes mellitus type: type 2 Diabetes mellitus long term care phlebotomist insulin use: without long term care phlebotomist use Diabetes mellitus complication status: without complication Qualified Code(s): E11.9 - Type 2 diabetes mellitus without complications Status: Acute (3) Hypertension: Qualifiers: Hypertension type: primary hypertension Qualified Code(s): I10 - Essential (primary) hypertension Status: Acute Plan 54-year-old male with history of hypertension diabetes and renal cancer presents with proximally 24 hours of diffuse lower abdominal pain. Workup in ER consistent with perforation of sigmoid colon due to diverticulitis 1. Sigmoid perforation -as per surgery 2. Diabetes type 2 -diet control -lispro correctional scale 3. Hypertension (relative hypotension in ER) -acceptable control off therapy -add back when clinically appropriate Full code Pneumatics We will follow
[2025-03-09] VITALS (13 sets, daily range): BP systolic 102–139; BP diastolic 54–77; PULSE 76–102; RESP 14–40; TEMP 36.5–37.6; O2SAT 91–97
[2025-03-09] MEDS: Lactated Ringers 1,000 ML 125 ML IVCONT (00:29)
[2025-03-09] MEDS: oxyCODONE HCl Immed Release 5 MG TABLET PO ×3 (03:43→11:13)
[2025-03-09 06:07] LABS: Glucose, Whole Blood 147 mg/dL (60-115)
[2025-03-09 06:45] LABS: Hematocrit 41.9 % (42.0-52.0); Hemoglobin 14.0 g/dl (14.0-18.0); Mean Corpuscular HGB Conc 33.4 g/dl (31.0-36.0); Mean Corpuscular Hemoglobin 29.4 pg (27.0-33.0); Mean Corpuscular Volume 88.0 fL (80.0-98.0); NRBC Abs Auto 0.000 X10*3/uL (0.0-0.012); NRBC Pct Auto 0.0 /100WBC (0.0-0.2); Platelet Count 243 X10*3/uL (160-400); Red Blood Count 4.76 X10*6/uL (4.60-5.80); White Blood Count 18.9 X10*3/uL (4.8-10.8)
[2025-03-09 07:10] LABS: Alanine Aminotransferase 14 U/L (0-40); Albumin Level 3.4 g/dL (3.5-5.0); Alkaline Phosphatase 39 U/L (39-117); Anion Gap 14 (12-20); Aspartate Amino Transferase 17 U/L (5-37); Blood Urea Nitrogen 33 mg/dL (9-16); Calcium 8.6 mg/dL (8.4-10.2); Carbon Dioxide 23 mmol/L (22-29); Chloride 106 mmol/L (96-108); Creatinine Clr Calc Pharmacy 73.7; Estimated Glomerular Filt Rate 49; Potassium 3.8 mmol/L (3.3-5.1); Sodium 139 mmol/L (135-145); Total Protein 6.4 g/dL (6.5-8.0)
[2025-03-09 07:45] LABS: Band Neutrophils Percent 16 % (3-5); Lymphocytes Absolute Manual 0.8 X10*3/uL (1.2-4.9); Lymphocytes Percent Manual 4 % (20-40); Monocytes Absolute Manual 0.4 X10*3/uL (0.1-1.2); Monocytes Percent Manual 2 % (2-11); Neutrophils Absolute Manual 17.8 X10*3/uL (2.0-8.3); Neutrophils Percent Manual 78 % (45-73)
[2025-03-09 07:46] LABS: Large Platelet PRESENT; RBC Morphology NOTED
[2025-03-09 07:47] LABS: Burr Cells 1+ (0-2) /OIF; Ovalocytes 1+ (5-14) /OIF; Toxic Vacuolation PRESENT
--- NOTE | 2025-03-09 08:03 | PM.PNGS ---
Subjective Subjective Date of Service: 03/09/25 <Jacky Hoffmann PA-C - Last Filed: 03/09/25 08:24> 03/09/25 <Teodoro Bejarano MD - Last Filed: 03/09/25 11:46> Interval history: Patient reporting increased pain this morning. Patient is very uncomfortable. The patient feels more bloated this morning. Denies nausea/vomiting. Denies fever/chills. He reports pain with urinating. <Jacky Hoffmann PA-C - Last Filed: 03/09/25 08:24> Physical Exam Vital Signs: Vital Signs: Last Vital Signs Temp 97.8 F 03/09/25 07:20 Pulse 77 03/09/25 07:20 Resp 17 03/09/25 07:20 BP 116/68 03/09/25 07:20 Pulse Ox 92 03/09/25 07:20 O2 Del Method Oxymask 03/09/25 07:20 O2 Flow Rate 2 03/09/25 07:20 BMI result Body Mass Index 34.0 <Jacky Hoffmann PA-C - Last Filed: 03/09/25 08:24> Const: Other: Very uncomfortable, pain <JUSTINO Jain Last Filed: 03/09/25 08:24> General: diaphoretic; No comfortable <JUSTINO Jain Last Filed: 03/09/25 08:24> Orientation/consciousness: patient oriented x3 <Jacky Hoffmann PA-C - Last Filed: 03/09/25 08:24> Resp: Other: supplemental O2 <Jacky Hoffmann PA-C - Last Filed: 03/09/25 08:24> Effort & Inspection: normal respiratory effort and able to speak in complete sentences <Jacky Hoffmann PA-C - Last Filed: 03/09/25 08:24> GI: Inspection: Yes distended <JUSTINO Jain Last Filed: 03/09/25 08:24> Palpation (GI): Firmness to palpation present (GI) (peritoneal), Tenderness to palpation present (GI) (exquisitely tenderthroughout) and Guarding due to palpation present (GI) (voluntary) <JUSTINO Jain Last Filed: 03/09/25 08:24> Neuro: General: patient oriented x3 <Jacky Hoffmann PA-C - Last Filed: 03/09/25 08:24> Objective Data Active Medications Enoxaparin Sodium (Enoxaparin Sodium 40 Mg/0.4 Ml Syringe) 40 mg SUBCUT Q24H [facility] Last Admin: 03/08/25 21:06 Dose: 40 mg Documented By: ED Hydromorphone HCl (Hydromorphone Hcl 0.5 Mg/0.5 Ml Syringe) 0.5 mg IVPUSH Q3H PRN; Protocol PRN Reason: Pain, Severe (Pain Scale 7-10) Last Admin: 03/08/25 19:16 Dose: 0.5 mg Documented By: WILL Lactated Ringer's (Lr) 1,000 mls @ 125 mls/hr IVCONT .Q8H [facility] Last Infusion: 03/09/25 06:24 Dose: 125 mls/hr Documented By: ED Acetaminophen (Ofirmev) 1,000 mg in 100 mls @ 400 mls/hr IV Q6H PRN PRN Reason: Pain, Mild (Pain Scale 1-3) Last Infusion: 03/09/25 04:06 Dose: Infused Documented By: ED Piperacillin Sod/Tazobactam (Sod 3.375 gm/ Sodium Chloride) 50 mls @ 100 mls/hr IV Q6H [facility] Last Infusion: 03/09/25 06:24 Dose: Infused Documented By: ED Ondansetron HCl (Ondansetron Hcl 4 Mg/2 Ml Vial) 4 mg IVPUSH QID PRN PRN Reason: Nausea Oxycodone HCl (Oxycodone Hcl Immed Release 5 Mg Tablet) 5 mg PO Q4H PRN PRN Reason: Pain, Moderate(Pain Scale 4-6) Last Admin: 03/09/25 06:58 Dose: 5 mg Documented By: ED Comments: PER PT REQUEST Sodium Chloride (0.9 % Sodium Chloride Flush 3 Ml Syringe) [facility] Last Admin: 03/09/25 07:01 Dose: Not Given Documented By: CHACHO Non-Admin Reason: IV Running Zolpidem Tartrate (Zolpidem Tartrate 5 Mg Tablet) 5 mg PO BEDTIME PRN PRN Reason: Insomnia <Jacky Hoffmann PA-C - Last Filed: 03/09/25 08:24> Labs CBC & Chem 7: 03/09/25 06:27 03/09/25 06:27 <Jacky Hoffmann PA-C - Last Filed: 03/09/25 08:24> Labs: Laboratory Results - last 24 hr 03/08/25 03/08/25 03/08/25 10:55 13:16 15:32 MCV MCH MCHC RDW Plt Count MPV Immature Gran % (Auto) Neut % (Auto) Lymph % (Auto) [place] % (Auto) Eos % (Auto) Baso % (Auto) Lymph # (Auto) [place] # (Auto) Eos # (Auto) Baso # (Auto) Abs Immat Gran (auto) Absolute Neuts (auto) Absolute Nucleated RBC Nucleated RBC % (auto) Neutrophils % (Manual) Band Neutrophils % Lymphocytes % (Manual) Monocytes % (Manual) Abs Neuts (Manual) Lymphocytes # (Manual) Monocytes # (Manual) Toxic Vacuolation Platelet Estimate Large Platelets Plt Morphology Comment RBC Morphology Ovalocytes [place] Cells PT 11.3 INR 1.0 APTT 29.7 Anion Gap Estim Creat Clear Calc Estimated GFR POC Glucose Random Glucose Fasting Glucose Lactic Acid 2.1 H* Lactic Acid F/U @ 2Hr 2.2 H* Lactic Acid F/U @ 4Hr 1.2 Calcium Total Bilirubin AST ALT Alkaline Phosphatase Total Protein Albumin Blood Type A Positive Antibody Screen NEGATIVE 03/09/25 03/09/25 03/09/25 06:02 06:27 06:27 MCV 88.0 MCH 29.4 MCHC 33.4 RDW 13.5 Plt Count 243 MPV 10.8 Immature Gran % (Auto) Cancelled Neut % (Auto) Cancelled Lymph % (Auto) Cancelled [place] % (Auto) Cancelled Eos % (Auto) Cancelled Baso % (Auto) Cancelled Lymph # (Auto) Cancelled [place] # (Auto) Cancelled Eos # (Auto) Cancelled Baso # (Auto) Cancelled Abs Immat Gran (auto) Cancelled Absolute Neuts (auto) Cancelled Absolute Nucleated RBC 0.000 Nucleated RBC % (auto) 0.0 Neutrophils % (Manual) 78 H Band Neutrophils % 16 H Lymphocytes % (Manual) 4 L Monocytes % (Manual) 2 Abs Neuts (Manual) 17.8 H Lymphocytes # (Manual) 0.8 L Monocytes # (Manual) 0.4 Toxic Vacuolation PRESENT Platelet Estimate NORMAL Large Platelets PRESENT Plt Morphology Comment NOTED RBC Morphology NOTED Ovalocytes 1+ (5-14) [place] Cells 1+ (0-2) PT INR APTT Anion Gap Cancelled 14 Estim Creat Clear Calc Cancelled Estimated GFR POC Glucose 147 H Random Glucose Fasting Glucose Lactic Acid Lactic Acid F/U @ 2Hr Lactic Acid F/U @ 4Hr Calcium Total Bilirubin AST ALT Alkaline Phosphatase Total Protein Albumin Blood Type Antibody Screen 03/09/25 03/09/25 03/09/25 06:27 06:27 06:27 MCV MCH MCHC RDW Plt Count MPV Immature Gran % (Auto) Neut % (Auto) Lymph % (Auto) [place] % (Auto) Eos % (Auto) Baso % (Auto) Lymph # (Auto) [place] # (Auto) Eos # (Auto) Baso # (Auto) Abs Immat Gran (auto) Absolute Neuts (auto) Absolute Nucleated RBC Nucleated RBC % (auto) Neutrophils % (Manual) Band Neutrophils % Lymphocytes % (Manual) Monocytes % (Manual) Abs Neuts (Manual) Lymphocytes # (Manual) Monocytes # (Manual) Toxic Vacuolation Platelet Estimate Large Platelets Plt Morphology Comment RBC Morphology Ovalocytes [place] Cells PT INR APTT Anion Gap Estim Creat Clear Calc 73.7 Estimated GFR Cancelled 49 POC Glucose Random Glucose Cancelled Fasting Glucose 141 H Lactic Acid Lactic Acid F/U @ 2Hr Lactic Acid F/U @ 4Hr Calcium Cancelled 8.6 Total Bilirubin 1.6 H AST 17 ALT 14 Alkaline Phosphatase 39 Total Protein 6.4 L Albumin 3.4 L Blood Type Antibody Screen <Jacky Hoffmann PA-C - Last Filed: 03/09/25 08:24> Procedures Date of Service Date of Service: 03/09/25 <Jacky Hoffmann PA-C - Last Filed: 03/09/25 08:24> 03/09/25 <Teodoro Bejarano MD - Last Filed: 03/09/25 11:46> Progress Note: A&P Assessment and plan (1) Perforation of sigmoid colon due to diverticulitis: Status: Acute <Jacky Hoffmann PA-C - Last Filed: 03/09/25 08:24> Assessment and Plan: 54 year old male admitted for management of diverticulitis with microperforation. Patient is acutely worsening this morning. Began experiencing increased pain this morning. Feels more bloated. Also complaining of pain with urination, UA negative, 225 cc pn bladder scan. The patient is visibly uncomfortable and diaphoretic but is afebrile. His abdomen is distended, rigid and exquisitely tender throughout with evidence of peritonitis. Patients BP was running soft overnight, low 100s systolic. Will increase basal rate of IV fluids prior to procedure. WBC increased this morning 18.9. Plan to bring the patient to the OR this afternoon for exploratory laparotomy, with possible colon resection and ostomy creation. Plan was discussed with patient via consultant education, patient is agreeable to plan and associated risks. patient has been NPO. Continue IV fluids IV zosyn pain control NPO <Jacky Hoffmann PA-C - Last Filed: 03/09/25 08:24> 54 year old male admitted for management of diverticulitis with microperforation. Patient is acutely worsening this morning. Began experiencing increased pain this morning. Feels more bloated. Also complaining of pain with urination, UA negative, 225 cc pn bladder scan. The patient is visibly uncomfortable and diaphoretic but is afebrile. His abdomen is distended, rigid and exquisitely tender throughout with evidence of peritonitis. Patients BP was running soft overnight, low 100s systolic. Will increase basal rate of IV fluids prior to procedure. WBC increased this morning 18.9. Plan to bring the patient to the OR this afternoon for exploratory laparotomy, with possible colon resection and ostomy creation. Plan was discussed with patient via consultant education, patient is agreeable to plan and associated risks. patient has been NPO. Continue IV fluids IV zosyn pain control NPO Patient continues to have abdominal pain and actually seems to be more uncomfortable this morning. Abdominal examination: Tender throughout with evidence of peritoneal signs which is a change from yesterday. I recommended exploratory laparotomy, possible bowel resection, possible colostomy. I reviewed the procedure, risks, and alternatives in detail with the assistance of fine grade bulldozer operator Caryn. The patient expressed understanding and consents to the exploratory laparotomy, possible colectomy, possible colostomy. He has been added onto the schedule for today. Continue IV fluids, NPO, antibiotics. <Teodoro Bejarano MD - Last Filed: 03/09/25 11:46> Time Spent With Patient Time: Total time managing care of this patient today ____ minutes. <Jacky Hoffmann PA-C - Last Filed: 03/09/25 08:24> Quality Stroke Does the patient have a stroke diagnosis?: No <Jacky Hoffmann PA-C - Last Filed: 03/09/25 08:24> VTE Prior VTE?: No <Jacky Hoffmann PA-C - Last Filed: 03/09/25 08:24> VTE Risk Level:: Surgical - moderate <Jacky Hoffmann PA-C - Last Filed: 03/09/25 08:24> VTE Device Contraindication: N/A - Device Ordered <Jacky Hoffmann PA-C - Last Filed: 03/09/25 08:24> VTE Drug Contraindication: N/A - Med Ordered <Jacky Hoffmann PA-C - Last Filed: 03/09/25 08:24>
[2025-03-09] MEDS: Lactated Ringers 1,000 ML 150 ML IVCONT (08:34)
--- NOTE | 2025-03-09 09:49 | MHC.CM.PN ---
pt lives with family he had no previous services he has own ride home dc plan home no services pcp is smith sims
[2025-03-09 12:37] LABS: Glucose, Whole Blood 88 mg/dL (60-115)
--- NOTE | 2025-03-09 13:11 | HO.ANESPROP2 ---
[facility] Active Problems Active Problems: All Active Problems Hypertension (Acute) Diabetes (Acute) Abdominal pain (Acute) Perforation of sigmoid colon due to diverticulitis (Acute) Renal cancer (Acute) Dyspnea (Acute) Chest pain (Acute) Abnormal chest x-ray (Acute) Hemoptysis (Acute) Osteoarthritis of right knee (Acute) Past Medical History Medical History Hypertension Diabetes Renal cancer Dyspnea Chest pain Abnormal chest x-ray Hemoptysis Surgical History History of Problems with Anesthesia: No Social History Social History Household Members: Family Housing: Apartment Do you presently have visiting nurse or other home services: No Alcohol intake: never Patient Tobacco Use Status: Never used Tobacco e-Cigarette/Vaping Use: Never Used service: No Current occupational status: employed Current occupation: [employer] Meds Allergies Allergy/AdvReac Type Severity Reaction Status Date / Time No Known Allergies Allergy Mild NONE Verified 03/09/25 12:14 Active Medications: Current Medications Enoxaparin Sodium (Enoxaparin Sodium 40 Mg/0.4 Ml Syringe) 40 mg SUBCUT Q24H [facility] Last Admin: 03/08/25 21:06 Dose: 40 mg Hydromorphone HCl (Hydromorphone Hcl 0.5 Mg/0.5 Ml Syringe) 0.5 mg IVPUSH Q3H PRN; Protocol PRN Reason: Pain, Severe (Pain Scale 7-10) Last Admin: 03/09/25 08:44 Dose: 0.5 mg Lactated Ringer's (Lr) 1,000 mls @ 150 mls/hr IVCONT .Q6H40M [facility] Last Infusion: 03/09/25 11:46 Dose: 0 mls/hr Acetaminophen (Ofirmev) 1,000 mg in 100 mls @ 400 mls/hr IV Q6H PRN PRN Reason: Pain, Mild (Pain Scale 1-3) Last Infusion: 03/09/25 04:06 Dose: Infused Piperacillin Sod/Tazobactam (Sod 3.375 gm/ Sodium Chloride) 50 mls @ 100 mls/hr IV Q6H [facility] Last Infusion: 03/09/25 11:51 Dose: Infused Ondansetron HCl (Ondansetron Hcl 4 Mg/2 Ml Vial) 4 mg IVPUSH QID PRN PRN Reason: Nausea Oxycodone HCl (Oxycodone Hcl Immed Release 5 Mg Tablet) 5 mg PO Q4H PRN PRN Reason: Pain, Moderate(Pain Scale 4-6) Last Admin: 03/09/25 11:13 Dose: 5 mg Sodium Chloride (0.9 % Sodium Chloride Flush 3 Ml Syringe) 3 ml IVFLUSH QSHIFT BO Last Admin: 03/09/25 07:01 Dose: Not Given Zolpidem Tartrate (Zolpidem Tartrate 5 Mg Tablet) 5 mg PO BEDTIME PRN PRN Reason: Insomnia Home Medications ?Medication ?Instructions ?Recorded ?Confirmed ?Last Taken ?Type hydrochlorothiazide 25 mg tablet 25 mg PO DAILY 09/29/24 03/08/25 03/07/25 History ciclopirox 8 % topical solution 1 appl topical BEDTIME PRN Fungal 03/08/25 03/08/25 Unknown History Infection cyclobenzaprine 10 mg tablet 10 mg PO BEDTIME PRN pain 03/08/25 03/08/25 Unknown History Exam Height,Weight and Vital Signs: Height 6 ft Weight 113.7 kg Last Vital Signs Temp 99.6 F 03/09/25 12:06 Pulse 92 03/09/25 12:06 Resp 18 03/09/25 12:06 BP 108/54 L 03/09/25 12:06 Pulse Ox 94 03/09/25 12:06 O2 Del Method Oxymask 03/09/25 12:06 O2 Flow Rate 2 03/09/25 12:06 Pertinent Lab Results Pertinent Lab Results: Laboratory Tests 03/08/25 03/08/25 03/08/25 04:24 04:25 10:55 WBC 7.0 RBC 4.68 Hgb 13.8 L Hct 39.6 L MCV 84.6 MCH 29.5 MCHC 34.8 RDW 13.0 Plt Count 256 MPV 10.3 Immature Gran % (Auto) 0.1 Neut % (Auto) 64.4 Lymph % (Auto) 23.9 [place] % (Auto) 8.7 Eos % (Auto) 2.0 Baso % (Auto) 0.9 Lymph # (Auto) 1.7 [place] # (Auto) 0.6 Eos # (Auto) 0.1 Baso # (Auto) 0.1 Abs Immat Gran (auto) 0.01 Absolute Neuts (auto) 4.5 Absolute Nucleated RBC 0.000 Nucleated RBC % (auto) 0.0 Neutrophils % (Manual) Band Neutrophils % Lymphocytes % (Manual) Monocytes % (Manual) Abs Neuts (Manual) Lymphocytes # (Manual) Monocytes # (Manual) Toxic Vacuolation Platelet Estimate Large Platelets Plt Morphology Comment RBC Morphology Ovalocytes [place] Cells PT 11.3 INR 1.0 APTT 29.7 Sodium 139 Potassium 3.8 Chloride 103 Carbon Dioxide 26 Anion Gap 14 BUN 23 H Creatinine 0.87 Estim Creat Clear Calc 124.9 Estimated GFR > 60 POC Glucose Random Glucose 126 H Fasting Glucose Lactic Acid 2.1 H* Lactic Acid F/U @ 2Hr Lactic Acid F/U @ 4Hr Calcium 9.1 Total Bilirubin 0.3 Direct Bilirubin 0.1 AST 23 ALT 25 Alkaline Phosphatase 50 Total Protein 7.0 Albumin 3.9 Lipase 38 Urine Color Yellow Urine Appearance Clear Urine pH 5.5 Ur Specific [place] 1.025 Urine Protein Negative Urine Glucose (UA) Negative Urine Ketones Negative Urine Blood Negative Urine Nitrite Negative Ur Leukocyte Esterase Negative Blood Type A Positive Antibody Screen NEGATIVE 03/08/25 03/08/25 03/09/25 13:16 15:32 06:02 WBC RBC Hgb Hct MCV MCH MCHC RDW Plt Count MPV Immature Gran % (Auto) Neut % (Auto) Lymph % (Auto) [place] % (Auto) Eos % (Auto) Baso % (Auto) Lymph # (Auto) [place] # (Auto) Eos # (Auto) Baso # (Auto) Abs Immat Gran (auto) Absolute Neuts (auto) Absolute Nucleated RBC Nucleated RBC % (auto) Neutrophils % (Manual) Band Neutrophils % Lymphocytes % (Manual) Monocytes % (Manual) Abs Neuts (Manual) Lymphocytes # (Manual) Monocytes # (Manual) Toxic Vacuolation Platelet Estimate Large Platelets Plt Morphology Comment RBC Morphology Ovalocytes [place] Cells PT INR APTT Sodium Potassium Chloride Carbon Dioxide Anion Gap BUN Creatinine Estim Creat Clear Calc Estimated GFR POC Glucose 147 H Random Glucose Fasting Glucose Lactic Acid Lactic Acid F/U @ 2Hr 2.2 H* Lactic Acid F/U @ 4Hr 1.2 Calcium Total Bilirubin Direct Bilirubin AST ALT Alkaline Phosphatase Total Protein Albumin Lipase Urine Color Urine Appearance Urine pH Ur Specific [place] Urine Protein Urine Glucose (UA) Urine Ketones Urine Blood Urine Nitrite Ur Leukocyte Esterase Blood Type Antibody Screen 03/09/25 03/09/25 03/09/25 06:27 06:27 06:27 WBC 18.9 H RBC 4.76 Hgb 14.0 Hct 41.9 L MCV 88.0 MCH 29.4 MCHC 33.4 RDW 13.5 Plt Count 243 MPV 10.8 Immature Gran % (Auto) Cancelled Neut % (Auto) Cancelled Lymph % (Auto) Cancelled [place] % (Auto) Cancelled Eos % (Auto) Cancelled Baso % (Auto) Cancelled Lymph # (Auto) Cancelled [place] # (Auto) Cancelled Eos # (Auto) Cancelled Baso # (Auto) Cancelled Abs Immat Gran (auto) Cancelled Absolute Neuts (auto) Cancelled Absolute Nucleated RBC 0.000 Nucleated RBC % (auto) 0.0 Neutrophils % (Manual) 78 H Band Neutrophils % 16 H Lymphocytes % (Manual) 4 L Monocytes % (Manual) 2 Abs Neuts (Manual) 17.8 H Lymphocytes # (Manual) 0.8 L Monocytes # (Manual) 0.4 Toxic Vacuolation PRESENT Platelet Estimate NORMAL Large Platelets PRESENT Plt Morphology Comment NOTED RBC Morphology NOTED Ovalocytes 1+ (5-14) [place] Cells 1+ (0-2) PT INR APTT Sodium Cancelled 139 Potassium Cancelled 3.8 Chloride Cancelled Carbon Dioxide Anion Gap BUN Creatinine Estim Creat Clear Calc Estimated GFR POC Glucose Random Glucose Fasting Glucose Lactic Acid Lactic Acid F/U @ 2Hr Lactic Acid F/U @ 4Hr Calcium Total Bilirubin Direct Bilirubin AST ALT Alkaline Phosphatase Total Protein Albumin Lipase Urine Color Urine Appearance Urine pH Ur Specific [place] Urine Protein Urine Glucose (UA) Urine Ketones Urine Blood Urine Nitrite Ur Leukocyte Esterase Blood Type Antibody Screen 03/09/25 03/09/25 03/09/25 06:27 06:27 06:27 WBC RBC Hgb Hct MCV MCH MCHC RDW Plt Count MPV Immature Gran % (Auto) Neut % (Auto) Lymph % (Auto) [place] % (Auto) Eos % (Auto) Baso % (Auto) Lymph # (Auto) [place] # (Auto) Eos # (Auto) Baso # (Auto) Abs Immat Gran (auto) Absolute Neuts (auto) Absolute Nucleated RBC Nucleated RBC % (auto) Neutrophils % (Manual) Band Neutrophils % Lymphocytes % (Manual) Monocytes % (Manual) Abs Neuts (Manual) Lymphocytes # (Manual) Monocytes # (Manual) Toxic Vacuolation Platelet Estimate Large Platelets Plt Morphology Comment RBC Morphology Ovalocytes [place] Cells PT INR APTT Sodium Potassium Chloride 106 Carbon Dioxide Cancelled 23 Anion Gap Cancelled 14 BUN Cancelled Creatinine Estim Creat Clear Calc Estimated GFR POC Glucose Random Glucose Fasting Glucose Lactic Acid Lactic Acid F/U @ 2Hr Lactic Acid F/U @ 4Hr Calcium Total Bilirubin Direct Bilirubin AST ALT Alkaline Phosphatase Total Protein Albumin Lipase Urine Color Urine Appearance Urine pH Ur Specific [place] Urine Protein Urine Glucose (UA) Urine Ketones Urine Blood Urine Nitrite Ur Leukocyte Esterase Blood Type Antibody Screen 03/09/25 03/09/25 03/09/25 06:27 06:27 06:27 WBC RBC Hgb Hct MCV MCH MCHC RDW Plt Count MPV Immature Gran % (Auto) Neut % (Auto) Lymph % (Auto) [place] % (Auto) Eos % (Auto) Baso % (Auto) Lymph # (Auto) [place] # (Auto) Eos # (Auto) Baso # (Auto) Abs Immat Gran (auto) Absolute Neuts (auto) Absolute Nucleated RBC Nucleated RBC % (auto) Neutrophils % (Manual) Band Neutrophils % Lymphocytes % (Manual) Monocytes % (Manual) Abs Neuts (Manual) Lymphocytes # (Manual) Monocytes # (Manual) Toxic Vacuolation Platelet Estimate Large Platelets Plt Morphology Comment RBC Morphology Ovalocytes [place] Cells PT INR APTT Sodium Potassium Chloride Carbon Dioxide Anion Gap BUN 33 H Creatinine Cancelled 1.49 H Estim Creat Clear Calc Cancelled 73.7 Estimated GFR Cancelled POC Glucose Random Glucose Fasting Glucose Lactic Acid Lactic Acid F/U @ 2Hr Lactic Acid F/U @ 4Hr Calcium Total Bilirubin Direct Bilirubin AST ALT Alkaline Phosphatase Total Protein Albumin Lipase Urine Color Urine Appearance Urine pH Ur Specific [place] Urine Protein Urine Glucose (UA) Urine Ketones Urine Blood Urine Nitrite Ur Leukocyte Esterase Blood Type Antibody Screen 03/09/25 03/09/25 03/09/25 06:27 06:27 12:33 WBC RBC Hgb Hct MCV MCH MCHC RDW Plt Count MPV Immature Gran % (Auto) Neut % (Auto) Lymph % (Auto) [place] % (Auto) Eos % (Auto) Baso % (Auto) Lymph # (Auto) [place] # (Auto) Eos # (Auto) Baso # (Auto) Abs Immat Gran (auto) Absolute Neuts (auto) Absolute Nucleated RBC Nucleated RBC % (auto) Neutrophils % (Manual) Band Neutrophils % Lymphocytes % (Manual) Monocytes % (Manual) Abs Neuts (Manual) Lymphocytes # (Manual) Monocytes # (Manual) Toxic Vacuolation Platelet Estimate Large Platelets Plt Morphology Comment RBC Morphology Ovalocytes [place] Cells PT INR APTT Sodium Potassium Chloride Carbon Dioxide Anion Gap BUN Creatinine Estim Creat Clear Calc Estimated GFR 49 POC Glucose 88 Random Glucose Cancelled Fasting Glucose 141 H Lactic Acid Lactic Acid F/U @ 2Hr Lactic Acid F/U @ 4Hr Calcium Cancelled 8.6 Total Bilirubin 1.6 H Direct Bilirubin AST 17 ALT 14 Alkaline Phosphatase 39 Total Protein 6.4 L Albumin 3.4 L Lipase Urine Color Urine Appearance Urine pH Ur Specific [place] Urine Protein Urine Glucose (UA) Urine Ketones Urine Blood Urine Nitrite Ur Leukocyte Esterase Blood Type Antibody Screen Airway Mallampati Class: III TM Dist: >3cm Neck ROM: Full Loose/Missing/Broken Teeth: No Heart: RRR Lungs: CTA Assessment and Plan Assessment Anesthesia Assessment: Anesthesia Plan Discussed and Chart Reviewed Final Anesthetic Review History of Problems with Anesthesia: No NPO: Yes ASA Class: III and Emergency Final Preanesthetic Review: Meds/Allgs Chart Reviewed, Consent Obtained/Reviewed and Anes Risks/Benef Reviewed Patient Risk: Intermediate Procedure Risk: Intermediate Anesthetic Plan Anesthetic Plan: GA Disposition: Standard PACU
--- NOTE | 2025-03-09 13:56 | PC.NURSE ---
Patient's glasses found in bed and placed in PACU.
--- NOTE | 2025-03-09 15:38 | W.PM.OPN ---
Operative Note Operative Note Date of Service: 03/09/25 Narrative: Preoperative diagnosis: Perforated sigmoid diverticulitis Postoperative diagnosis: Same Procedure: Exploratory laparotomy, Nick procedure Surgeon: Teodoro Bejarano MD Employment [employer] Claims Aide: Alexis Main MD; Jacky Hoffmann PA-C, ARLEEN Sexton Anesthesia: General endotracheal Indications for procedure: 54-year-old male patient presenting with complaints of abdominal pain diffusely found to have evidence of sigmoid diverticulitis with microperforation. He was started on antibiotics and kept NPO however overnight developed increased abdominal pain with an elevated WBC. He presents now for exploratory laparotomy. Operative findings: Perforated sigmoid diverticulitis with a microperforation. A large amount of ascitic fluid was aspirated. Specimen: Sigmoid colon, wound culture peritoneal fluid Drains: Dailey Estimated blood loss: 25 mL Complications: None Procedure details: Patient was brought to the OR and placed in a supine position. After administering general anesthesia the patient's abdomen was prepped with ChloraPrep and draped in a sterile fashion. A surgical time-out was called the consent confirmed. Patient preoperatively was on regular dose of antibiotics. Venodyne boots were in place. A midline incision was made below the umbilicus and carried out through subcutaneous tissue through linea alba into the peritoneum. The abdomen was then explored. A Bookwalter retractor was then placed. A large amount of infected ascitic fluid was then aspirated. Wound cultures were obtained of the fluid. Sigmoid colon was then identified and an area of marked inflammation was identified. A small perforation was noted in the wall of the sigmoid colon. The sigmoid colon was mobilized along the white line of Toldt using Metzenbaum scissors and electrocautery. An area of soft bowel above the area of diverticulitis was identified. Mesentery was divided using electrocautery. A JAYLAN stapler was then used to divide the bowel proximal to the perforation. The mesentery of the sigmoid colon was then divided using LigaSure below the area of inflammation. An area below the inflammation was then identified in the 2nd firing of the JAYLAN stapler used to divide the bowel. A long segment of rectosigmoid colon remained below the perforation. The proximal descending colon was then mobilized further to allow creation of an ostomy. A circular incision was made in the left lower quadrant with a scalpel and carried down into the subcutaneous tissue up to the fascia. A cruciate incision was then made in the fascia. Rectus muscle was then bluntly dissected down to posterior sheath and fascia. This was then entered using the Merry clamp in the peritoneum and posterior sheath dilated to the width of 3 fingers. The distal descending colon was then brought up into the circular incision to create a colostomy. This was secured using Babcocks. Abdomen was then thoroughly irrigated with Irrisept followed by saline solution. All interloop collections were drained. The gutters were also drained with a suctioned. Fascia was then closed using a running 0 PDS suture. Dermis was reapproximated using interrupted 3-0 Polysorb sutures. Skin was closed using skin dung. Colostomy was then matured by opening the staple line. The mucosa was then secured to the skin edge in a [place] fashion using a 4-0 Polysorb suture. This was done in 4 quadrants. Additional 4 more sutures were then placed between the 4 quadrants. A small amount of Surgicel was placed adjacent to the mesentery for hemostatic control. Sterile dressings were then applied to the midline incision including 4 x 4 gauze and Tegaderm. Ostomy appliance was then applied to the colostomy. The patient tolerated the procedure well. Sponge, instrument, and needle counts were reported as correct. The patient was transferred to PACU in stable condition.
[2025-03-09 15:46] LABS: Glucose, Whole Blood 124 mg/dL (60-115)
[2025-03-09] MEDS: Lactated Ringers 1,000 ML 80 ML IVCONT (21:42)
[2025-03-09] MEDS: 0.9 % Sodium Chloride Flush 3 ML SYRINGE IVFLUSH (21:53)
[2025-03-10 02:51] VITALS: BP 129/68; PULSE 98; RESP 20; TEMP 36.5; O2SAT 93
[2025-03-10] MEDS: oxyCODONE HCl Immed Release 5 MG TABLET PO (06:07)
[2025-03-10 06:24] LABS: Anion Gap 14 (12-20); Blood Urea Nitrogen 32 mg/dL (9-16); Calcium 8.9 mg/dL (8.4-10.2); Carbon Dioxide 26 mmol/L (22-29); Chloride 105 mmol/L (96-108); Creatinine Clr Calc Pharmacy 102.7; Estimated Glomerular Filt Rate > 60; Hematocrit 41.7 % (42.0-52.0); Hemoglobin 14.1 g/dl (14.0-18.0); Mean Corpuscular HGB Conc 33.8 g/dl (31.0-36.0); Mean Corpuscular Hemoglobin 29.4 pg (27.0-33.0); Mean Corpuscular Volume 86.9 fL (80.0-98.0); NRBC Abs Auto 0.000 X10*3/uL (0.0-0.012); NRBC Pct Auto 0.0 /100WBC (0.0-0.2); Platelet Count 243 X10*3/uL (160-400); Potassium 4.4 mmol/L (3.3-5.1); Red Blood Count 4.80 X10*6/uL (4.60-5.80); Sodium 141 mmol/L (135-145); White Blood Count 16.7 X10*3/uL (4.8-10.8)
--- NOTE | 2025-03-10 06:51 | P.PNGS_ITS ---
Subjective Subjective Date of Service: 03/10/25 <[facility] Last Filed: 03/10/25 07:21> 03/10/25 <Jacky Hoffmann PA-C - Last Filed: 03/10/25 08:11> Interval history: Jai Herrera is a 54 year old male s/p Nick's procedure. He's reports feeling short of breath, and states he feels pain in the left upper quadrant of the abdomen when he breathes in. He also reports not using the spirometer since the surgery. He states he is in a moderate amount of pain primarily around the incision sites. He has been up and out of bed and states he has walked a bit around his room. He has not eaten anything yet. He denies any chest pain, fever, nausea, or vomiting. He does endorse chills. <[facility] Last Filed: 03/10/25 07:21> Jai Herrera is a 54 year old male s/p Nick's procedure. He's reports feeling short of breath, and states he feels pain in the left upper quadrant of the abdomen when he breathes in, patient clarified that the pain with inspiration is localized around the incision site. He also reports not using the spirometer since the surgery. He states he is in a moderate amount of pain primarily around the incision sites. He has been up and out of bed and states he has walked a bit around his room. He has not eaten anything yet. He denies any chest pain, fever, nausea, or vomiting. He does endorse chills. Denies stoma output <Jacky Hoffmann PA-C - Last Filed: 03/10/25 08:11> Physical Exam 2 Vital Signs: Vital Signs: Last Vital Signs Temp 97.7 F 03/10/25 02:51 Pulse 98 03/10/25 02:51 Resp 20 03/10/25 02:51 BP 129/68 03/10/25 02:51 Pulse Ox 93 03/10/25 02:51 O2 Del Method Nasal Cannula 03/10/25 02:51 O2 Flow Rate 2 03/10/25 02:51 BMI result Body Mass Index 34.0 <[facility] Last Filed: 03/10/25 07:21> Const: General: no acute distress and tired appearing <[facility] Last Filed: 03/10/25 07:21> Orientation/consciousness: patient oriented x3 <[facility] Filed: 03/10/25 07:21> Resp: Auscultation: crackles (Patient had crackles in the left lower lung) <[facility] Last Filed: 03/10/25 07:21> Cardio: Rate: regular rate <[facility] Filed: 03/10/25 07:21> Rhythm: regular rhythm <[facility] Filed: 03/10/25 07:21> Heart sounds: S1 normal heart sound present and S2 normal heart sound present <[facility] Filed: 03/10/25 07:21> GI: Other: stoma site appears well perfused, mildly edematous <Jacky Hoffmann PA-C Last Filed: 03/10/25 08:11> Inspection: Yes normal to inspection (Dressings are clean, dry, intact, with no signs of infection. ) <[facility] Last Filed: 03/10/25 07:21> Inspection: No distended <Jacky Hoffmann PA-C Last Filed: 03/10/25 08:11> Palpation (GI): Soft to palpation and Tenderness to palpation present (GI) < [facility] Last Filed: 03/10/25 07:21> Palpation (GI): not firm, Tenderness to palpation present (GI) (incisional), no guarding and not rigid <Jacky Hoffmann PA-C Last Filed: 03/10/25 08:11> Neuro: General: patient oriented x3 <[facility] Filed: 03/10/25 07:21> Objective Data Active Medications Enoxaparin Sodium (Enoxaparin Sodium 40 Mg/0.4 Ml Syringe) 40 mg SUBCUT Q24H BO On Hold: 03/09/25 16:27 Comment: Order held by Process Transfer Last Admin: 03/08/25 21:06 Dose: 40 mg Documented By: ED Hydromorphone HCl (Hydromorphone Hcl 0.5 Mg/0.5 Ml Syringe) 0.5 mg IVPUSH Q3H PRN; Protocol PRN Reason: Pain, Severe (Pain Scale 7-10) Last Admin: 03/09/25 08:44 Dose: 0.5 mg Documented By: CHACHO Lactated Ringer's (Lr) 1,000 mls @ 80 mls/hr IVCONT .[id number] [facility] Last Infusion: 03/09/25 22:34 Dose: 80 mls/hr Documented By: KAREN Acetaminophen ([facility]) 1,000 mg in 100 mls @ 400 mls/hr IV Q6H PRN PRN Reason: Pain, Mild (Pain Scale 1-3) Last Infusion: 03/09/25 16:34 Dose: Infused Documented By: CHACHO Piperacillin Sod/Tazobactam (Sod 3.375 gm/ Sodium Chloride) 50 mls @ 100 mls/hr IV Q6H [facility] Last Infusion: 03/10/25 06:06 Dose: Infused Documented By: KAREN Ketorolac Tromethamine (Ketorolac Tromethamine 30 Mg/Ml Vial) 30 mg IVPUSH Q6H PRN PRN Reason: Pain, Moderate(Pain Scale 4-6) Ondansetron HCl (Ondansetron Hcl 4 Mg/2 Ml Vial) 4 mg IVPUSH QID PRN PRN Reason: Nausea Oxycodone HCl (Oxycodone Hcl Immed Release 5 Mg Tablet) 5 mg PO Q4H PRN PRN Reason: Pain, Moderate(Pain Scale 4-6) Last Admin: 03/10/25 06:07 Dose: 5 mg Documented By: KAREN Sodium Chloride (0.9 % Sodium Chloride Flush 3 Ml Syringe) [facility] Last Admin: 03/09/25 21:53 Dose: 3 ml Documented By: KAREN Zolpidem Tartrate (Zolpidem Tartrate 5 Mg Tablet) 5 mg PO BEDTIME PRN PRN Reason: Insomnia <[facility] Melara - Last Filed: 03/10/25 07:21> Labs CBC & Chem 7: 03/10/25 05:00 03/10/25 05:00 <Gildardo Melara - Last Filed: 03/10/25 07:21> Labs: Laboratory Results - last 24 hr 03/09/25 03/09/25 03/09/25 06:27 06:27 06:27 MCV 88.0 MCH 29.4 MCHC 33.4 RDW 13.5 Plt Count 243 MPV 10.8 Immature Gran % (Auto) Cancelled Neut % (Auto) Cancelled Lymph % (Auto) Cancelled [place] % (Auto) Cancelled Eos % (Auto) Cancelled Baso % (Auto) Cancelled Lymph # (Auto) Cancelled [place] # (Auto) Cancelled Eos # (Auto) Cancelled Baso # (Auto) Cancelled Abs Immat Gran (auto) Cancelled Absolute Neuts (auto) Cancelled Absolute Nucleated RBC 0.000 Nucleated RBC % (auto) 0.0 Neutrophils % (Manual) 78 H Band Neutrophils % 16 H Lymphocytes % (Manual) 4 L Monocytes % (Manual) 2 Abs Neuts (Manual) 17.8 H Lymphocytes # (Manual) 0.8 L Monocytes # (Manual) 0.4 Toxic Vacuolation PRESENT Platelet Estimate NORMAL Large Platelets PRESENT Plt Morphology Comment NOTED RBC Morphology NOTED Ovalocytes 1+ (5-14) Katty Cells 1+ (0-2) Anion Gap Cancelled 14 Estim Creat Clear Calc Cancelled 73.7 Estimated GFR Cancelled POC Glucose Random Glucose Fasting Glucose Calcium Total Bilirubin AST ALT Alkaline Phosphatase Total Protein Albumin 03/09/25 03/09/25 03/09/25 06:27 06:27 12:33 MCV MCH MCHC RDW Plt Count MPV Immature Gran % (Auto) Neut % (Auto) Lymph % (Auto) [place] % (Auto) Eos % (Auto) Baso % (Auto) Lymph # (Auto) [place] # (Auto) Eos # (Auto) Baso # (Auto) Abs Immat Gran (auto) Absolute Neuts (auto) Absolute Nucleated RBC Nucleated RBC % (auto) Neutrophils % (Manual) Band Neutrophils % Lymphocytes % (Manual) Monocytes % (Manual) Abs Neuts (Manual) Lymphocytes # (Manual) Monocytes # (Manual) Toxic Vacuolation Platelet Estimate Large Platelets Plt Morphology Comment RBC Morphology Ovalocytes [place] Cells Anion Gap Estim Creat Clear Calc Estimated GFR 49 POC Glucose 88 Random Glucose Cancelled Fasting Glucose 141 H Calcium Cancelled 8.6 Total Bilirubin 1.6 H AST 17 ALT 14 Alkaline Phosphatase 39 Total Protein 6.4 L Albumin 3.4 L 03/09/25 03/10/25 15:43 05:00 MCV 86.9 MCH 29.4 MCHC 33.8 RDW 13.8 Plt Count 243 MPV 11.2 Immature Gran % (Auto) Neut % (Auto) Lymph % (Auto) [place] % (Auto) Eos % (Auto) Baso % (Auto) Lymph # (Auto) [place] # (Auto) Eos # (Auto) Baso # (Auto) Abs Immat Gran (auto) Absolute Neuts (auto) Absolute Nucleated RBC 0.000 Nucleated RBC % (auto) 0.0 Neutrophils % (Manual) Band Neutrophils % Lymphocytes % (Manual) Monocytes % (Manual) Abs Neuts (Manual) Lymphocytes # (Manual) Monocytes # (Manual) Toxic Vacuolation Platelet Estimate Large Platelets Plt Morphology Comment RBC Morphology Ovalocytes Katty Cells Anion Gap 14 Estim Creat Clear Calc 102.7 Estimated GFR > 60 POC Glucose 124 H Random Glucose 166 H Fasting Glucose Calcium 8.9 Total Bilirubin AST ALT Alkaline Phosphatase Total Protein Albumin <[facility] - Last Filed: 03/10/25 07:21> Microbiology Microbiology Results: Microbiology 03/09/25 14:15 Gram Stain - Final Peritoneum 03/08/25 10:55 Blood Culture - Preliminary Blood - Venous No growth after 24 hours. 03/08/25 10:41 Blood Culture - Preliminary Blood - Venous No growth after 24 hours. <[facility] - Last Filed: 03/10/25 07:21> Procedures Date of Service Date of Service: 03/10/25 <[facility] - Last Filed: 03/10/25 07:21> 03/10/25 <Jacky Hoffmann PA-C - Last Filed: 03/10/25 08:11> Progress Note: A&P Assessment and plan (1) Status post Nick procedure: Status: Acute <[facility] Last Filed: 03/10/25 07:21> Assessment and Plan: Jai Herrera is a 54 year old male s/p Nick's procedure. He's reports feeling short of breath, and states he feels pain in the left upper quadrant of the abdomen when he breathes in. Crackles were heard on auscultation of the left lower lung. All other lung hairston were clear to auscultation. He also reports not using the spirometer since the surgery. Patient was educated on importance of spirometer use, and encouraged to use it 10 times per hour. Tenderness was noted on physical exam when palpating the abdomen, primarily around the incision sites. Dressing appears clean, dry and intact, with no signs of infection. His WBC was elevated at 16.7 and his HCT was low at 41.7, which is expected post-operatively. Continue pain regimen Repeat CBC and BMP Spirometer use was encouraged Ambulation was encouraged <Gildardo Melara - Last Filed: 03/10/25 07:21> Jai Herrera is a 54 year old male s/p Nick's procedure. He's reports feeling short of breath, and states he feels pain in the left upper quadrant of the abdomen when he breathes in. Crackles were heard on auscultation of the left lower lung. All other lung hairston were clear to auscultation. He also reports not using the spirometer since the surgery. Patient was educated on importance of spirometer use, and encouraged to use it 10 times per hour. Tenderness was noted on physical exam when palpating the abdomen, primarily around the incision sites. Dressing appears clean, dry and intact, with no signs of infection. His WBC was elevated at 16.7 and his HCT was low at 41.7, which is expected post-operatively. Continue pain regimen Repeat CBC and BMP in AM Spirometer use was encouraged Ambulation was encouraged Patient seen and evaluated independently. I agree with the above plan. We discussed his pain with breathing, he clarified that this pain is located around the incision site. It is possible there is some air under the diaphragm after the laparotomy yesterday. Will continue to monitor this. Abdomnen is soft, and tender. Ostomy site has no output at this time, appears well profused. Continue IV zosyn Will trial clear liquids this morning eduardo removed <Jacky Hoffmann PA-C - Last Filed: 03/10/25 08:11> Time Spent With Patient Time: Total time managing care of this patient today ____ minutes. <Gildardo Melara - Last Filed: 03/10/25 07:21> Quality Stroke Does the patient have a stroke diagnosis?: No <[facility] - Last Filed: 03/10/25 07:21> VTE Prior VTE?: No <[facility] - Last Filed: 03/10/25 07:21> VTE Risk Level:: Surgical - moderate <[facility] - Last Filed: 03/10/25 07:21> VTE Device Contraindication: N/A - Device Ordered <[facility] Last Filed: 03/10/25 07:21> VTE Drug Contraindication: N/A - Med Ordered <[facility] Last Filed: 03/10/25 07:21>
[2025-03-10 07:47] VITALS: BP 129/75; PULSE 87; RESP 18; TEMP 37.2; O2SAT 95
--- NOTE | 2025-03-10 07:50 | HO.POSTANES ---
Post Anesthesia Evaluation Post Anesthesia Evaluation Date of Service: 03/10/25 Vital Signs: Vital Signs Temp Pulse Resp BP Pulse Ox O2 Del Method O2 Flow Rate 03/10/25 07:47 98.9 F 87 18 129/75 95 Nasal Cannula 2 03/10/25 02:51 97.7 F 98 20 129/68 93 Nasal Cannula 2 03/09/25 23:06 97.7 F 88 18 117/60 95 Nasal Cannula 2 Anesthesia: General Endotracheal-GETA Mental Status: Awake Pain Control: Satisfactory Nausea/Vomiting: None Hydration: Adequate Anesthesia-Related Issues: No Anes. Related Issues Comments: pain level 7/10 awaiting pain meds
[2025-03-10] MEDS: 0.9 % Sodium Chloride Flush 3 ML SYRINGE IVFLUSH ×3 (08:01→22:54)
[2025-03-10 08:15] LABS: Glucose, Whole Blood 141 mg/dL (60-115)
[2025-03-10 08:34] VITALS: RESP 20
[2025-03-10 11:11] LABS: Glucose, Whole Blood 218 mg/dL (60-115)
--- NOTE | 2025-03-10 11:39 | PC.NURSE ---
08:27 Pt diaphoretic, reporting 7/10 abd pain, SOB but 95% on 2 L NC. VS stable. Pt denies chest pain. POC blood sugar 141. MD Garcia aware. PRN Dilaudid administered with good effective. Pt ambulated down the hallway with this RN w/ minimal assistance. Denies dizziness. Now sitting in recliner with all safety measures in place. Pt using incentive spirometer with good effect.
[2025-03-10 12:38] LABS: Glucose, Whole Blood 208 mg/dL (60-115)
--- NOTE | 2025-03-10 14:31 | MHC.CM.PN ---
per rounds pt is not medically ready for dc plan remains home n/s
--- NOTE | 2025-03-10 14:45 | P.PNIM_ITS ---
Subjective Subjective Date of Service: 03/10/25 Interval History: Doing well postop day 1. Pain meds adjusted Review of Systems Denies chest pain Denies shortness of breath Denies nausea vomiting diarrhea Denies fever chills Physical Exam 2 Vital Signs: Vital Signs: Last Vital Signs Temp 98.9 F 03/10/25 07:47 Pulse 87 03/10/25 07:47 Resp 20 03/10/25 08:34 BP 129/75 03/10/25 07:47 Pulse Ox 95 03/10/25 07:47 O2 Del Method Nasal Cannula 03/10/25 07:47 O2 Flow Rate 2 03/10/25 07:47 BMI result Body Mass Index 34.0 Const: Other: Awake alert comfortable Resp: Other: Clear to auscultation bilaterally no rales rhonchi or wheezes Cardio: Other: No S4; positive S1-S2; no S3 murmurs rubs or gallops GI: Other: Soft diffusely tender with quiet bowel signs. Extrem: Other: No edema bilaterally Objective Data Active Medications Dextrose (Dextrose 50 % 25 Gm/50 Ml Syringe) 25 gm IVPUSH Q15M PRN; Protocol PRN Reason: per Hypoglycemia Standing Ord. Enoxaparin Sodium (Enoxaparin Sodium 40 Mg/0.4 Ml Syringe) 40 mg SUBCUT Q24H BO On Hold: 03/09/25 16:27 Comment: Order held by Process Transfer Last Admin: 03/08/25 21:06 Dose: 40 mg Documented By: ED Glucose (Glucose Gel 15 Gm Gel..Gram.) 15 gm PO Q15M PRN; Protocol PRN Reason: per Hypoglycemia Standing Ord. Hydromorphone HCl (Hydromorphone Hcl 0.5 Mg/0.5 Ml Syringe) 0.5 mg IVPUSH Q3H PRN; Protocol PRN Reason: Pain, Severe (Pain Scale 7-10) Last Admin: 03/10/25 08:34 Dose: 0.5 mg Documented By: SANA Acetaminophen (Ofirmev) 1,000 mg in 100 mls @ 400 mls/hr IV Q6H PRN PRN Reason: Pain, Mild (Pain Scale 1-3) Last Infusion: 03/09/25 16:34 Dose: Infused Documented By: CHACHO Piperacillin Sod/Tazobactam (Sod 3.375 gm/ Sodium Chloride) 50 mls @ 100 mls/hr IV Q6H [facility] Last Infusion: 03/10/25 12:06 Dose: Infused Documented By: SANA Insulin Human Lispro (Insulin Lispro 100 Unit/Ml 3 Ml Vial) 0 unit SUBCUT [facility]ID[facility]; Protocol Last Admin: 03/10/25 12:38 Dose: 4 unit Documented By: SANA Ketorolac Tromethamine (Ketorolac Tromethamine 30 Mg/Ml Vial) 30 mg IVPUSH Q6H PRN PRN Reason: Pain, Moderate(Pain Scale 4-6) Last Admin: 03/10/25 07:48 Dose: 30 mg Documented By: SANA Ondansetron HCl (Ondansetron Hcl 4 Mg/2 Ml Vial) 4 mg IVPUSH QID PRN PRN Reason: Nausea Oxycodone HCl (Oxycodone Hcl Immed Release 5 Mg Tablet) 10 mg PO Q4H PRN PRN Reason: Pain, Moderate(Pain Scale 4-6) Sodium Chloride (0.9 % Sodium Chloride Flush 3 Ml Syringe) [facility] Last Admin: 03/10/25 08:01 Dose: 3 ml Documented By: SANA Zolpidem Tartrate (Zolpidem Tartrate 5 Mg Tablet) 5 mg PO BEDTIME PRN PRN Reason: Insomnia Labs 03/10/25 05:00 03/10/25 05:00 Labs: Laboratory Results - last 24 hr 03/09/25 03/10/25 03/10/25 15:43 05:00 08:09 MCV 86.9 MCH 29.4 MCHC 33.8 RDW 13.8 Plt Count 243 MPV 11.2 Absolute Nucleated RBC 0.000 Nucleated RBC % (auto) 0.0 Anion Gap 14 Estim Creat Clear Calc 102.7 Estimated GFR > 60 POC Glucose 124 H 141 H Random Glucose 166 H Calcium 8.9 03/10/25 03/10/25 11:08 12:33 MCV MCH MCHC RDW Plt Count MPV Absolute Nucleated RBC Nucleated RBC % (auto) Anion Gap Estim Creat Clear Calc Estimated GFR POC Glucose 218 H 208 H Random Glucose Calcium Microbiology Microbiology Results: Microbiology 03/08/25 10:55 Blood Culture - Preliminary Blood - Venous No growth after 48 hours. 03/08/25 10:41 Blood Culture - Preliminary Blood - Venous No growth after 48 hours. 03/09/25 14:15 Gram Stain - Final Peritoneum Routine Culture - Preliminary Culture in progress. Assessment and Plan (1) Perforation of sigmoid colon due to diverticulitis: Status: Acute (2) Status post Nick procedure: Status: Acute (3) Hypertension: Status: Acute (4) Diabetes: Status: Acute Plan 54-year-old male with history of hypertension diabetes and renal cancer presents with proximally 24 hours of diffuse lower abdominal pain. Workup in ER consistent with perforation of sigmoid colon due to diverticulitis 1. Sigmoid perforation -POD 1 Nick's pouch -pain management adjusted -as per surgery 2. Diabetes type 2 -clear liquid diet; acceptable control now -lispro correctional scale 3. Hypertension (relative hypotension in ER) -acceptable control off therapy -add back when clinically appropriate Full code Pneumatics We will follow Quality Stroke Does the patient have a stroke diagnosis?: No VTE Prior VTE?: No VTE Risk Level:: Surgical - moderate VTE Device Contraindication: N/A - Device Ordered VTE Drug Contraindication: N/A - Med Ordered
[2025-03-10 15:26] VITALS: BP 111/72; PULSE 98; RESP 12; TEMP 36.8; O2SAT 94
--- NOTE | 2025-03-10 15:43 | PC.NURSE ---
PA Curtain Made aware pts stoma appears darker in color, per PA surgiseal was used on stoma yesterday, PA at bedside this AM to assess pt, clear brown fluid in bag, abd soft, +BS, pt reporting no pain at this time.
[2025-03-10 16:44] LABS: Glucose, Whole Blood 145 mg/dL (60-115)
[2025-03-10] MEDS: oxyCODONE HCl Immed Release 5 MG TABLET 10 MG PO ×2 (18:42→23:38)
[2025-03-10 19:28] VITALS: BP 122/60; PULSE 95; RESP 18; TEMP 36.9; O2SAT 93
[2025-03-10 20:17] LABS: Glucose, Whole Blood 167 mg/dL (60-115)
[2025-03-11 03:06] VITALS: BP 124/63; PULSE 72; RESP 16; TEMP 37.1; O2SAT 93
--- NOTE | 2025-03-11 07:08 | PM.PNGS ---
Subjective Subjective Date of Service: 03/11/25 <[facility] Last Filed: 03/11/25 07:29> 03/11/25 <Jacky Hoffmann PA-C - Last Filed: 03/11/25 10:24> Interval history: Jai Herrera is a 54 year old male s/p Nick's procedure, POD2. Overall he is doing well. His symptoms of abdominal pain when breathing in and chills have resolved. He reports that his abdominal pain is mild, primarily around the incision site, and improved from yesterday. He reports he's been getting out of bed and able to walk around his room with no issues. He is tolerating a liquid diet well. He states he has been using the spirometer consistently, 10 times an hour. He denies any fever, chills, chest pain, shortness of breath, nausea and vomiting. <[facility] Last Filed: 03/11/25 07:29> Physical Exam Vital Signs: Vital Signs: Last Vital Signs Temp 98.7 F 03/11/25 03:06 Pulse 72 03/11/25 03:06 Resp 16 03/11/25 03:06 BP 124/63 03/11/25 03:06 Pulse Ox 93 03/11/25 03:06 O2 Del Method Room Air 03/11/25 03:06 O2 Flow Rate 2 03/10/25 07:47 BMI result Body Mass Index 34.0 <[facility] Last Filed: 03/11/25 07:29> Const: General: comfortable and no acute distress <[facility] Filed: 03/11/25 07:29> Orientation/consciousness: patient oriented x3 <[facility] Last Filed: 03/11/25 07:29> Resp: Effort & Inspection: normal respiratory effort <[facility] Filed: 03/11/25 07:29> Auscultation: crackles (Crackles heard in the right lower lung, otherwise clear to auscultation) <[facility] Filed: 03/11/25 07:29> Cardio: Rate: regular rate <[facility] Filed: 03/11/25 07:29> Rhythm: regular rhythm [facility] Last Filed: 03/11/25 07:29> Heart sounds: S1 normal heart sound present and S2 normal heart sound present <[facility] Last Filed: 03/11/25 07:29> GI: Other: Ostomy appears well-perfused. Output is serosanguineous, no stool <Jacky Hoffmann PA-C Last Filed: 03/11/25 10:24> Inspection: Yes normal to inspection (Dressings are clean, dry and intact, with no signs of infection.) and Yes other (Ostomy output of liquid consistency, that is slightly blood-tinged) <[facility] Last Filed: 03/11/25 07:29> Inspection: No distended <Jacky Hoffmann PA-C Last Filed: 03/11/25 10:24> Palpation (GI): Soft to palpation and Tenderness to palpation present (GI) (Along the incision site. ) in the epigastrum and periumbilically <[facility] Last Filed: 03/11/25 07:29> Palpation (GI): no guarding and not rigid <Jacky Hoffmann PA-C Last Filed: 03/11/25 10:24> Neuro: General: patient oriented x3 <[facility] Last Filed: 03/11/25 07:29> Objective Data Active Medications Dextrose (Dextrose 50 % 25 Gm/50 Ml Syringe) 25 gm IVPUSH Q15M PRN; Protocol PRN Reason: per Hypoglycemia Standing Ord. Enoxaparin Sodium (Enoxaparin Sodium 40 Mg/0.4 Ml Syringe) 40 mg SUBCUT Q24H BO On Hold: 03/09/25 16:27 Comment: Order held by Process Transfer Last Admin: 03/08/25 21:06 Dose: 40 mg Documented By: ED Glucose (Glucose Gel 15 Gm Gel..Gram.) 15 gm PO Q15M PRN; Protocol PRN Reason: per Hypoglycemia Standing Ord. Hydromorphone HCl (Hydromorphone Hcl 0.5 Mg/0.5 Ml Syringe) 0.5 mg IVPUSH Q3H PRN; Protocol PRN Reason: Pain, Severe (Pain Scale 7-10) Last Admin: 03/10/25 08:34 Dose: 0.5 mg Documented By: SANA Acetaminophen (Ofirmev) 1,000 mg in 100 mls @ 400 mls/hr IV Q6H PRN PRN Reason: Pain, Mild (Pain Scale 1-3) Last Infusion: 03/09/25 16:34 Dose: Infused Documented By: CHACHO Piperacillin Sod/Tazobactam (Sod 3.375 gm/ Sodium Chloride) 50 mls @ 100 mls/hr IV Q6H [facility] Last Admin: 03/11/25 06:26 Dose: 100 mls/hr Documented By: KAREN Insulin Human Lispro (Insulin Lispro 100 Unit/Ml 3 Ml Vial) 0 [facility]; Protocol Last Admin: 03/10/25 22:45 Dose: 2 unit Documented By: KAREN Ketorolac Tromethamine (Ketorolac Tromethamine 30 Mg/Ml Vial) 30 mg IVPUSH Q6H PRN PRN Reason: Pain, Moderate(Pain Scale 4-6) Last Admin: 03/10/25 07:48 Dose: 30 mg Documented By: SANA Ondansetron HCl (Ondansetron Hcl 4 Mg/2 Ml Vial) 4 mg IVPUSH QID PRN PRN Reason: Nausea Oxycodone HCl (Oxycodone Hcl Immed Release 5 Mg Tablet) 10 mg PO Q4H PRN PRN Reason: Pain, Moderate(Pain Scale 4-6) Last Admin: 03/10/25 23:38 Dose: 10 mg Documented By: KAREN Sodium Chloride (0.9 % Sodium Chloride Flush 3 Ml Syringe) [facility] Last Admin: 03/10/25 22:54 Dose: 3 ml Documented By: KAREN Zolpidem Tartrate (Zolpidem Tartrate 5 Mg Tablet) 5 mg PO BEDTIME PRN PRN Reason: Insomnia <[facility] - Last Filed: 03/11/25 07:29> Labs CBC & Chem 7: 03/10/25 05:00 03/10/25 05:00 <Gildardo Melara - Last Filed: 03/11/25 07:29> Labs: Laboratory Results - last 24 hr 03/10/25 03/10/25 03/10/25 08:09 11:08 12:33 POC Glucose 141 H 218 H 208 H 03/10/25 03/10/25 16:39 19:32 POC Glucose 145 H 167 H <[facility] - Last Filed: 03/11/25 07:29> Microbiology Microbiology Results: Microbiology 03/08/25 10:55 Blood Culture - Preliminary Blood - Venous No growth after 48 hours. 03/08/25 10:41 Blood Culture - Preliminary Blood - Venous No growth after 48 hours. 03/09/25 14:15 Gram Stain - Final Peritoneum Routine Culture - Preliminary Culture in progress. <[facility] Last Filed: 03/11/25 07:29> Procedures Date of Service Date of Service: 03/11/25 <[facility] Last Filed: 03/11/25 07:29> 03/11/25 <Jacky Hoffmann PA-C - Last Filed: 03/11/25 10:24> Progress Note: A&P Assessment and plan (1) Status post Nick procedure: Status: Acute <[facility] Last Filed: 03/11/25 07:29> Assessment and Plan: Jai Herrera is a 54 year old male s/p Nick's procedure, POD2. Overall he is doing well. His symptoms of abdominal pain when breathing in and chills have resolved, and he only complains of mild abdominal pain limited to the incision site. Mild pain to palpation present limited to the incison site. Dressing is clean, dry and intact with no signs of infection. Ostomy output is liquid in consistency, that is slightly blood-tinged. He is up and out of bed, tolerating a liquid diet, and using his spirometer consistently. No new lab values. Continue pain regimen Continue clear liquid diet Ambulation and spirometer use encouraged Repeat CBC and BMP <[facility] - Last Filed: 03/11/25 07:29> Jai Herrera is a 54 year old male s/p Nick's procedure, POD2. Overall he is doing well. His symptoms of abdominal pain when breathing in and chills have resolved, and he only complains of mild abdominal pain limited to the incision site. Mild pain to palpation present limited to the incision site. Dressing is clean, dry and intact with no signs of infection. Ostomy output is liquid in consistency, that is slightly blood-tinged. He is up and out of bed, tolerating a liquid diet, and using his spirometer consistently. No new lab values. Continue pain regimen Continue clear liquid diet Ambulation and spirometer use encouraged Repeat CBC and BMP Patient seen and examined independently. Agree with above assessment and plan. Intraoperative culture pending. <Jacky Hoffmann PA-C - Last Filed: 03/11/25 10:24> Time Spent With Patient Time: Total time managing care of this patient today ____ minutes. <[facility] - Last Filed: 03/11/25 07:29> Quality Stroke Does the patient have a stroke diagnosis?: No <[facility] - Last Filed: 03/11/25 07:29> VTE Prior VTE?: No <[facility] - Last Filed: 03/11/25 07:29> VTE Risk Level:: Surgical - moderate <[facility] Last Filed: 03/11/25 07:29> VTE Device Contraindication: N/A - Device Ordered <[facility] Last Filed: 03/11/25 07:29> VTE Drug Contraindication: N/A - Med Ordered <[facility] Last Filed: 03/11/25 07:29>
[2025-03-11 07:31] VITALS: BP 111/60; PULSE 79; RESP 16; TEMP 36.4; O2SAT 96
[2025-03-11 07:44] LABS: Glucose, Whole Blood 116 mg/dL (60-115)
--- NOTE | 2025-03-11 08:03 | PM.PNGS ---
Subjective Subjective Date of Service: 03/11/25 Interval history: Overall the patient feels improved today with less abdominal pain, pain is well-controlled with oxycodone. He is tolerating clear liquids in his not interested in advancing just yet. No stool or gas from the ostomy. Physical Exam Vital Signs: Vital Signs: Last Vital Signs Temp 97.5 F 03/11/25 07:31 Pulse 79 03/11/25 07:31 Resp 16 03/11/25 07:31 BP 111/60 03/11/25 07:31 Pulse Ox 96 03/11/25 07:31 O2 Del Method Room Air 03/11/25 07:31 O2 Flow Rate 2 03/10/25 07:47 BMI result Body Mass Index 34.0 Const: General: comfortable Nutritional Appearance: well nourished Orientation/consciousness: patient oriented x3 Resp: Effort & Inspection: normal respiratory effort GI: Other: Dressings clean and intact, ostomy with Surgicel overlying giving it a black appearance. No stool or gas noted. Neuro: General: patient oriented x3 Extrem: Other: No edema Objective Data Active Medications Dextrose (Dextrose 50 % 25 Gm/50 Ml Syringe) 25 gm IVPUSH Q15M PRN; Protocol PRN Reason: per Hypoglycemia Standing Ord. Enoxaparin Sodium (Enoxaparin Sodium 40 Mg/0.4 Ml Syringe) 40 mg SUBCUT Q24H BO Last Admin: 03/08/25 21:06 Dose: 40 mg Documented By: ED Glucose (Glucose Gel 15 Gm Gel..Gram.) 15 gm PO Q15M PRN; Protocol PRN Reason: per Hypoglycemia Standing Ord. Hydromorphone HCl (Hydromorphone Hcl 0.5 Mg/0.5 Ml Syringe) 0.5 mg IVPUSH Q3H PRN; Protocol PRN Reason: Pain, Severe (Pain Scale 7-10) Last Admin: 03/10/25 08:34 Dose: 0.5 mg Documented By: SANA Acetaminophen (Ofirmev) 1,000 mg in 100 mls @ 400 mls/hr IV Q6H PRN PRN Reason: Pain, Mild (Pain Scale 1-3) Last Infusion: 03/09/25 16:34 Dose: Infused Documented By: CHACHO Piperacillin Sod/Tazobactam (Sod 3.375 gm/ Sodium Chloride) 50 mls @ 100 mls/hr IV Q6H [facility] Last Infusion: 03/11/25 07:12 Dose: Infused Documented By: KAREN Insulin Human Lispro (Insulin Lispro 100 Unit/Ml 3 Ml Vial) 0 unit SUBCUT QIDACHS [facility]; Protocol Last Admin: 03/10/25 22:45 Dose: 2 unit Documented By: KAREN Ketorolac Tromethamine (Ketorolac Tromethamine 30 Mg/Ml Vial) 30 mg IVPUSH Q6H PRN PRN Reason: Pain, Moderate(Pain Scale 4-6) Last Admin: 03/10/25 07:48 Dose: 30 mg Documented By: SANA Ondansetron HCl (Ondansetron Hcl 4 Mg/2 Ml Vial) 4 mg IVPUSH QID PRN PRN Reason: Nausea Oxycodone HCl (Oxycodone Hcl Immed Release 5 Mg Tablet) 10 mg PO Q4H PRN PRN Reason: Pain, Moderate(Pain Scale 4-6) Last Admin: 03/10/25 23:38 Dose: 10 mg Documented By: KAREN Sodium Chloride (0.9 % Sodium Chloride Flush 3 Ml Syringe) 3 ml IVFLUSH [facility] Last Admin: 03/10/25 22:54 Dose: 3 ml Documented By: KAREN Zolpidem Tartrate (Zolpidem Tartrate 5 Mg Tablet) 5 mg PO BEDTIME PRN PRN Reason: Insomnia Labs 03/10/25 05:00 03/10/25 05:00 Labs: Laboratory Results - last 24 hr 03/10/25 03/10/25 03/10/25 08:09 11:08 12:33 POC Glucose 141 H 218 H 208 H 03/10/25 03/10/25 03/11/25 16:39 19:32 07:34 POC Glucose 145 H 167 H 116 H Microbiology Microbiology Results: Microbiology 03/08/25 10:55 Blood Culture - Preliminary Blood - Venous No growth after 48 hours. 03/08/25 10:41 Blood Culture - Preliminary Blood - Venous No growth after 48 hours. 03/09/25 14:15 Gram Stain - Final Peritoneum Routine Culture - Preliminary Culture in progress. Procedures Date of Service Date of Service: 03/11/25 Progress Note: A&P Assessment and plan (1) Status post Nick procedure: Status: Acute (2) Perforation of sigmoid colon due to diverticulitis: Status: Acute Plan POD 2 following Nick procedure. Abdominal exam more benign today. WBC improving. Awaiting return of bowel function. We will continue with clear liquid diet. Patient will continue incentive spirometry and out of bed/ambulation. Continue antibiotics. Time Spent With Patient Time: Total time managing care of this patient today ____ minutes. Quality Stroke Does the patient have a stroke diagnosis?: No VTE Prior VTE?: No VTE Risk Level:: Surgical - moderate VTE Device Contraindication: N/A - Device Ordered VTE Drug Contraindication: N/A - Med Ordered
[2025-03-11] MEDS: oxyCODONE HCl Immed Release 5 MG TABLET 10 MG PO ×3 (09:14→23:58)
[2025-03-11] MEDS: 0.9 % Sodium Chloride Flush 3 ML SYRINGE IVFLUSH ×3 (09:15→20:06)
[2025-03-11 11:21] LABS: Glucose, Whole Blood 128 mg/dL (60-115)
[2025-03-11 15:22] VITALS: BP 119/65; PULSE 80; RESP 20; TEMP 36.7; O2SAT 98
[2025-03-11 16:14] LABS: Glucose, Whole Blood 89 mg/dL (60-115)
--- NOTE | 2025-03-11 18:42 | HO.OSTOMY ---
Ostomy Consult: Initial Teaching 50yr old male admitted to [facility] on 03/08/25 see H&P for detailed history and admission.? Consult for new ostomy teaching. mechanic chief present throughout visit. ?He had an End Colostomy creation on 03/09/[address] Saenz. ?Upon entry into patient's room, he is sitting in his recliner chair, he is alert and oriented x 3, he currently has no complaints. ?Introductions were completed, he is agreeable to continuing with teaching. ? We discussed his pain control at 5/10 at the current moment, he reports increasing the use of his IS and ambulating the entire unit (1x today so far). ?We began by discussing general knowledge about the Colostomy and questions he had. ?We discussed opening and closing the ostomy pouch. He was able to independently provide a return demonstration on an empty pouch. ?He had not yet emptied his pouch only bowel sweat is noted.? We discussed the importance of emptying pouch when 1/3 to 1/2 full, how to empty pouch, and lining water with toilet paper to prevent splash back. With an empty Coloplast pouch he performed a demonstration. He was also educated on when to contact warehouse and receiving supervisor/Dr Bejarano's office/seek emergency medical treatment. Patient was given some ostomy pouches for transition to home. Aware that Rx written for pouches and rings will be sent by Outpt nurse to [facility] for home delivery.? Reviewed written education with patient and left at bedside for further review. ?He did watch the education videos supplied by [facility]. Permission was granted for pouch assessment and no leak was noted however pouch was applied in side position and is not condusive to patient independence. He was agreeable to pouch change. We performed a stoma model change first. Pouch removed and stoma was noted to be red moist viable but significantly retracted within crease of abdomen. He will benefit from convex pouching in the future however given new stoma will use flat pouch at this time. Coloplast 13289 used cut to 30 x 40 oval. Midline dressing removed due to be attached to pouch and stool noted on dressing. Midline incision observed and cleansed. No erythema noted no drainage noted - well approximated. Dry dressing replaced. He observed the pouch change but did not participate. He reported having no questions at this time. ?Patient was made aware that I will return to bedside later in week for ongoing education - however to note patient seems to have a good understanding of care and material at this time. ?He will benefit from VNA services at time of discharge. ?All questions and concerns addressed at this time. Next teaching session goals: Demonstrate open and close independently Steps to a pouch change he is able to recall We discussed the following steps: 1. Empty pouch before pouch change 2. Remove pouch using push/pull technique from top to bottom 3. Cleanse stoma and skin with tap water only - no soap or baby wipes 4. Pat dry 5. Measure stoma and cut new pouch no more than 1/8 inch larger than stoma and no smaller than stoma 6. If instructed by your ostomy nurse stretch barrier seal to the size of the stoma and press onto skin around stoma (up to the edge of the stoma but not onto the stoma) 7. Press the new pouch into place and hold for several minutes (close pouch tail) 8. Empty pouch when 1/3 to 1/2 full 9. Change pouch twice weekly on a schedule (for example, every Saturday and ) and as needed for any leaking (feels like intense itch or burn at edge of stoma) 10. May order pre-cut pouches (already cut to size of stoma) once stoma measures the same size consistently. ?
[2025-03-11 19:17] VITALS: BP 110/64; PULSE 91; RESP 20; TEMP 36.6; O2SAT 95
[2025-03-11 20:12] LABS: Glucose, Whole Blood 133 mg/dL (60-115)
[2025-03-12 03:20] VITALS: BP 119/65; PULSE 73; RESP 20; TEMP 36.6; O2SAT 94
[2025-03-12 06:11] LABS: MANUAL DIFF FLAG NO
[2025-03-12 06:23] LABS: Hematocrit 37.7 % (42.0-52.0); Hemoglobin 12.5 g/dl (14.0-18.0); Imm Gran Abs Auto 0.08 X10*3/uL (0.00-0.03); Imm Gran Pct Auto 0.7 % (0.0-0.4); Lymphocytes Absolute Auto 1.3 X10*3/uL (1.2-4.9); Mean Corpuscular HGB Conc 33.2 g/dl (31.0-36.0); Mean Corpuscular Hemoglobin 29.5 pg (27.0-33.0); Mean Corpuscular Volume 88.9 fL (80.0-98.0); NRBC Abs Auto 0.000 X10*3/uL (0.0-0.012); NRBC Pct Auto 0.0 /100WBC (0.0-0.2); Platelet Count 286 X10*3/uL (160-400); Red Blood Count 4.24 X10*6/uL (4.60-5.80); White Blood Count 12.1 X10*3/uL (4.8-10.8)
[2025-03-12 06:31] LABS: Anion Gap 12 (12-20); Blood Urea Nitrogen 23 mg/dL (9-16); Calcium 8.7 mg/dL (8.4-10.2); Carbon Dioxide 27 mmol/L (22-29); Chloride 104 mmol/L (96-108); Creatinine Clr Calc Pharmacy 127.8; Estimated Glomerular Filt Rate > 60; Potassium 3.7 mmol/L (3.3-5.1); Sodium 139 mmol/L (135-145)
--- NOTE | 2025-03-12 07:05 | PM.PNGS ---
Subjective Subjective Date of Service: 03/12/25 <[facility] Last Filed: 03/12/25 07:17> 03/12/25 <Jacky Hoffmann PA-C - Last Filed: 03/12/25 08:50> Interval history: Jai Herrera is a 54 year old male s/p Nick's procedure, POD3. He states he is doing well. He reports that his abdominal pain is mild, primarily around the incision site. He reports increased ambulation as he is now walking around the unit, whereas before he was only walking in his room. He is tolerating a liquid diet well. He states he has been using the spirometer consistently. He denies any fever, chills, chest pain, shortness of breath, nausea and vomiting. <[facility] Last Filed: 03/12/25 07:17> Physical Exam Vital Signs: Vital Signs: Last Vital Signs Temp 97.9 F 03/12/25 03:20 Pulse 73 03/12/25 03:20 Resp 20 03/12/25 03:20 BP 119/65 03/12/25 03:20 Pulse Ox 94 03/12/25 03:20 O2 Del Method Room Air 03/12/25 03:20 O2 Flow Rate 2 03/10/25 07:47 BMI result Body Mass Index 34.0 <[facility] Last Filed: 03/12/25 07:17> Const: General: comfortable and no acute distress <[facility] Last Filed: 03/12/25 07:17> Orientation/consciousness: patient oriented x3 <[facility] Filed: 03/12/25 07:17> Resp: Effort & Inspection: normal respiratory effort <[facility] Last Filed: 03/12/25 07:17> Auscultation: clear to auscultation bilaterally <[facility] Last Filed: 03/12/25 07:17> Cardio: Rate: regular rate <[facility] Last Filed: 03/12/25 07:17> Rhythm: regular rhythm <[facility] Filed: 03/12/25 07:17> Heart sounds: S1 normal heart sound present and S2 normal heart sound present <[facility] Last Filed: 03/12/25 07:17> GI: Other: Ostomy output serosanguineous no BM <Jacky Hoffmann PA-C - Last Filed: 03/12/25 08:50> Inspection: Yes normal to inspection (Dressing is clean, dry and intact, with no signs of infection.) <[facility] Last Filed: 03/12/25 07:17> Palpation (GI): Soft to palpation and Tenderness to palpation present (GI) (Tenderness limited to the incision site) periumbilically <[facility] - Last Filed: 03/12/25 07:17> Neuro: General: patient oriented x3 <[facility] Last Filed: 03/12/25 07:17> Objective Data Active Medications Dextrose (Dextrose 50 % 25 Gm/50 Ml Syringe) 25 gm IVPUSH Q15M PRN; Protocol PRN Reason: per Hypoglycemia Standing Ord. Enoxaparin Sodium (Enoxaparin Sodium 40 Mg/0.4 Ml Syringe) 40 mg SUBCUT Q24H [facility] Last Admin: 03/11/25 20:06 Dose: 40 mg Documented By: HARJINDER Glucose (Glucose Gel 15 Gm Gel..Gram.) 15 gm PO Q15M PRN; Protocol PRN Reason: per Hypoglycemia Standing Ord. Hydromorphone HCl (Hydromorphone Hcl 0.5 Mg/0.5 Ml Syringe) 0.5 mg IVPUSH Q3H PRN; Protocol PRN Reason: Pain, Severe (Pain Scale 7-10) Last Admin: 03/10/25 08:34 Dose: 0.5 mg Documented By: SANA Acetaminophen (Ofirmev) 1,000 mg in 100 mls @ 400 mls/hr IV Q6H PRN PRN Reason: Pain, Mild (Pain Scale 1-3) Last Infusion: 03/09/25 16:34 Dose: Infused Documented By: CHACHO Piperacillin Sod/Tazobactam (Sod 3.375 gm/ Sodium Chloride) 50 mls @ 100 mls/hr IV Q6H [facility] Last Infusion: 03/12/25 05:15 Dose: Infused Documented By: HARJINDER Insulin Human Lispro (Insulin Lispro 100 Unit/Ml 3 Ml Vial) 0 unit SUBCUT [facility]; Protocol Last Admin: 03/11/25 20:34 Dose: Not Given Documented By: HARJINDER Non-Admin Reason: No Insulin Coverage Ketorolac Tromethamine (Ketorolac Tromethamine 30 Mg/Ml Vial) 30 mg IVPUSH Q6H PRN PRN Reason: Pain, Moderate(Pain Scale 4-6) Last Admin: 03/10/25 07:48 Dose: 30 mg Documented By: SANA Ondansetron HCl (Ondansetron Hcl 4 Mg/2 Ml Vial) 4 mg IVPUSH QID PRN PRN Reason: Nausea Oxycodone HCl (Oxycodone Hcl Immed Release 5 Mg Tablet) 10 mg PO Q4H PRN PRN Reason: Pain, Moderate(Pain Scale 4-6) Last Admin: 03/11/25 23:58 Dose: 10 mg Documented By: HARJINDER Sodium Chloride (0.9 % Sodium Chloride Flush 3 Ml Syringe) 3 ml [facility] Last Admin: 03/11/25 20:06 Dose: 3 ml Documented By: HARJINDER Zolpidem Tartrate (Zolpidem Tartrate 5 Mg Tablet) 5 mg PO BEDTIME PRN PRN Reason: Insomnia <[facility] - Last Filed: 03/12/25 07:17> Labs CBC & Chem 7: 03/12/25 05:25 03/12/25 05:25 <[facility] - Last Filed: 03/12/25 07:17> Labs: Laboratory Results - last 24 hr 03/11/25 03/11/25 03/11/25 07:34 11:08 16:06 MCV MCH MCHC RDW Plt Count MPV Immature Gran % (Auto) Neut % (Auto) Lymph % (Auto) [place] % (Auto) Eos % (Auto) Baso % (Auto) Lymph # (Auto) [place] # (Auto) Eos # (Auto) Baso # (Auto) Abs Immat Gran (auto) Absolute Neuts (auto) Absolute Nucleated RBC Nucleated RBC % (auto) Anion Gap Estim Creat Clear Calc Estimated GFR POC Glucose 116 H 128 H 89 Random Glucose Calcium 03/11/25 03/12/25 19:20 05:25 MCV 88.9 MCH 29.5 MCHC 33.2 RDW 14.0 Plt Count 286 MPV 10.5 Immature Gran % (Auto) 0.7 H Neut % (Auto) 76.4 H Lymph % (Auto) 10.7 L [place] % (Auto) 8.3 Eos % (Auto) 3.5 Baso % (Auto) 0.4 Lymph # (Auto) 1.3 [place] # (Auto) 1.0 Eos # (Auto) 0.4 Baso # (Auto) 0.1 Abs Immat Gran (auto) 0.08 H Absolute Neuts (auto) 9.3 H Absolute Nucleated RBC 0.000 Nucleated RBC % (auto) 0.0 Anion Gap 12 Estim Creat Clear Calc 127.8 Estimated GFR > 60 POC Glucose 133 H Random Glucose 86 Calcium 8.7 <[facility] - Last Filed: 03/12/25 07:17> Microbiology Microbiology Results: Microbiology 03/09/25 14:15 Gram Stain - Final Peritoneum Routine Culture - Final <[facility] Last Filed: 03/12/25 07:17> Procedures Date of Service Date of Service: 03/12/25 <[facility] - Last Filed: 03/12/25 07:17> 03/12/25 <Jacky Hoffmann PA-C - Last Filed: 03/12/25 08:50> Progress Note: A&P Assessment and plan (1) Status post Nick procedure: Status: Acute <[facility] Last Filed: 03/12/25 07:17> Assessment and Plan: Jai Herrera is a 54 year old male s/p Nick's procedure, POD3. He's doing well overall. He reports that his abdominal pain is mild, with mild pain to palpation limited to the incision site. Ostomy pouch has some blood-tinged fluid. He reports increased ambulation as he is now walking around the unit. He is tolerating a liquid diet well. He states he has been using the spirometer consistently. His leukocytosis is improving and trending down, with a WBC count of 12.1 (previously, 18.9, 16.7). He appears anemic with an H/H of 12.5/37.7. He denies any fever, chills, chest pain, shortness of breath, nausea and vomiting. Continue pain regimen Continue clear liquid diet Ambulation and spirometer use encouraged Trend CBC and BMP <[facility] Last Filed: 03/12/25 07:17> Jai Herrera is a 54 year old male s/p Nick's procedure, POD3. He's doing well overall. He reports that his abdominal pain is mild, with mild pain to palpation limited to the incision site. Ostomy pouch has some blood-tinged fluid. He reports increased ambulation as he is now walking around the unit. He is tolerating a liquid diet well. He states he has been using the spirometer consistently. His leukocytosis is improving and trending down, with a WBC count of 12.1 (previously, 18.9, 16.7). He appears anemic with an H/H of 12.5/37.7. He denies any fever, chills, chest pain, shortness of breath, nausea and vomiting. Continue pain regimen Continue clear liquid diet Ambulation and spirometer use encouraged Trend CBC and BMP Patient seen and examined independently. Agree with the above assessment and plan. Patient met with ostomy nurseofe appropriate understanding of caring for the ostomy going forward. We will continue clear liquid diet until bowel function resumes and then we will advance as tolerated. Incision site clean dry and intact, dung in place <Jacky Hoffmann PA-C - Last Filed: 03/12/25 08:50> Time Spent With Patient Time: Total time managing care of this patient today ____ minutes. <[facility] Last Filed: 03/12/25 07:17> Quality Stroke Does the patient have a stroke diagnosis?: No <[facility] Last Filed: 03/12/25 07:17> VTE Prior VTE?: No <[facility] Last Filed: 03/12/25 07:17> VTE Risk Level:: Surgical - moderate <[facility] Last Filed: 03/12/25 07:17> VTE Device Contraindication: N/A - Device Ordered <[facility] Last Filed: 03/12/25 07:17> VTE Drug Contraindication: N/A - Med Ordered <[facility] - Last Filed: 03/12/25 07:17>
[2025-03-12 07:39] LABS: Glucose, Whole Blood 70 mg/dL (60-115)
[2025-03-12 07:45] VITALS: BP 131/79; PULSE 82; RESP 18; TEMP 36.8; O2SAT 92
[2025-03-12 08:33] LABS: Glucose, Whole Blood 96 mg/dL (60-115)
[2025-03-12] MEDS: 0.9 % Sodium Chloride Flush 3 ML SYRINGE IVFLUSH ×3 (09:25→22:29)
[2025-03-12] MEDS: oxyCODONE HCl Immed Release 5 MG TABLET 10 MG PO ×3 (09:26→22:44)
[2025-03-12 11:22] LABS: Glucose, Whole Blood 114 mg/dL (60-115)
[2025-03-12 13:47] VITALS: BP 125/73; PULSE 93; RESP 18; TEMP 37.2; O2SAT 95
[2025-03-12 15:35] LABS: Glucose, Whole Blood 113 mg/dL (60-115)
--- NOTE | 2025-03-12 16:04 | HO.OSTOMY ---
Ostomy Consult:Follow up teaching 50yr old male admitted to [facility] on 03/08/25 see H&P for detailed history and admission.? Consult for new ostomy teaching. He had an End Colostomy creation on 03/09/[address] Bejarano. Chart reviewed and arrival to beside patient notes no gas or stool production started as of yet. He denies nausea and denies increased distension and pain. He reports consistent ambulation today and IS use. He reports pain well controlled for the most part. He is wearing an abdominal binder per his request and he reports increase in comfort since application. The pouch remains intact however the crease at the stoma site appears to be impacting the pouching. The patient will likely need convexity. Should patient stay inpatient until Saturday I will place in convex pouch. Bowel sweat is noted in the pouch. He was able to verbally walk me through a pouch change and was able to provide a demonstration of an open close on a clean empty pouch. He will benefit from VNA services at time of d/c. He denies questions at this time. Will follow up Saturday should he remain inpatient. Details from previous teaching: body sander present throughout visit. ?He had an End Colostomy creation on 03/09/[address] Saenz. ?Upon entry into patient's room, he is sitting in his recliner chair, he is alert and oriented x 3, he currently has no complaints. Introductions were completed, he is agreeable to continuing with teaching. ? We discussed his pain control at 5/10 at the current moment, he reports increasing the use of his IS and ambulating the entire unit (1x today so far). ?We began by discussing general knowledge about the Colostomy and questions he had. ?We discussed opening and closing the ostomy pouch. He was able to independently provide a return demonstration on an empty pouch. ?He had not yet emptied his pouch only bowel sweat is noted.? We discussed the importance of emptying pouch when 1/3 to 1/2 full, how to empty pouch, and lining water with toilet paper to prevent splash back. With an empty Coloplast pouch he performed a demonstration. He was also educated on when to contact machine molder/Dr Bejarano's office/seek emergency medical treatment. Patient was given some ostomy pouches for transition to home. Aware that Rx written for pouches and rings will be sent by Outpt nurse to [place] for home delivery.? Reviewed written education with patient and left at bedside for further review. ?He did watch the education videos supplied by [facility]. Permission was granted for pouch assessment and no leak was noted however pouch was applied in side position and is not condusive to patient independence. He was agreeable to pouch change. We performed a stoma model change first. Pouch removed and stoma was noted to be red moist viable but significantly retracted within crease of abdomen. He will benefit from convex pouching in the future however given new stoma will use flat pouch at this time. Coloplast 89802 used cut to 30 x 40 oval. Midline dressing removed due to be attached to pouch and stool noted on dressing. Midline incision observed and cleansed. No erythema noted no drainage noted - well approximated. Dry dressing replaced. He observed the pouch change but did not participate. He reported having no questions at this time. ?Patient was made aware that I will return to bedside later in week for ongoing education - however to note patient seems to have a good understanding of care and material at this time. ?He will benefit from VNA services at time of discharge. ?All questions and concerns addressed at this time. Next teaching session goals: Demonstrate open and close independently Steps to a pouch change he is able to recall We discussed the following steps: 1. Empty pouch before pouch change 2. Remove pouch using push/pull technique from top to bottom 3. Cleanse stoma and skin with tap water only - no soap or baby wipes 4. Pat dry 5. Measure stoma and cut new pouch no more than 1/8 inch larger than stoma and no smaller than stoma 6. If instructed by your ostomy nurse stretch barrier seal to the size of the stoma and press onto skin around stoma (up to the edge of the stoma but not onto the stoma) 7. Press the new pouch into place and hold for several minutes (close pouch tail) 8. Empty pouch when 1/3 to 1/2 full 9. Change pouch twice weekly on a schedule (for example, every Saturday and ) and as needed for any leaking (feels like intense itch or burn at edge of stoma) 10. May order pre-cut pouches (already cut to size of stoma) once stoma measures the same size consistently. ?
--- NOTE | 2025-03-12 19:13 | PC.NURSE ---
Pt requesting abdominal binder. Ok per Dr. Bejarano. Abd binder applied. Pt reports pain improved and better abdominal support.
[2025-03-12 20:28] VITALS: BP 116/73; PULSE 89; RESP 19; TEMP 37.1; O2SAT 94
[2025-03-12 21:14] LABS: Glucose, Whole Blood 125 mg/dL (60-115)
[2025-03-13 04:21] VITALS: BP 133/75; PULSE 100; RESP 18; TEMP 36.8; O2SAT 93
[2025-03-13 07:29] VITALS: BP 126/85; PULSE 100; RESP 16; TEMP 37.3; O2SAT 95
[2025-03-13 07:53] LABS: Glucose, Whole Blood 112 mg/dL (60-115)
--- NOTE | 2025-03-13 09:03 | PM.PNGS ---
Subjective Subjective Date of Service: 03/13/25 Interval history: Passing flatus from his stoma No stool yet Complains of incisional pain No events overnight Physical Exam Vital Signs: Vital Signs: Last Vital Signs Temp 99.2 F 03/13/25 07:29 Pulse 100 03/13/25 07:29 Resp 16 03/13/25 07:29 BP 126/85 03/13/25 07:29 Pulse Ox 95 03/13/25 07:29 O2 Del Method Room Air 03/13/25 07:29 O2 Flow Rate 2 03/10/25 07:47 BMI result Body Mass Index 34.0 Const: Other: Ambulating in room General: no acute distress Resp: Effort & Inspection: normal respiratory effort Cardio: Rate: regular rate GI: Other: Incision clean and dry, stoma viable, no stool but with some air in appliance Palpation (GI): Soft to palpation Objective Data Active Medications Dextrose (Dextrose 50 % 25 Gm/50 Ml Syringe) 25 gm IVPUSH Q15M PRN; Protocol PRN Reason: per Hypoglycemia Standing Ord. Enoxaparin Sodium (Enoxaparin Sodium 40 Mg/0.4 Ml Syringe) 40 mg SUBCUT Q24H [facility] Last Admin: 03/12/25 19:58 Dose: 40 mg Documented By: TITO Glucose (Glucose Gel 15 Gm Gel..Gram.) 15 gm PO Q15M PRN; Protocol PRN Reason: per Hypoglycemia Standing Ord. Hydromorphone HCl (Hydromorphone Hcl 0.5 Mg/0.5 Ml Syringe) 0.5 mg IVPUSH Q3H PRN; Protocol PRN Reason: Pain, Severe (Pain Scale 7-10) Last Admin: 03/10/25 08:34 Dose: 0.5 mg Documented By: SANA Acetaminophen (Ofirmev) 1,000 mg in 100 mls @ 400 mls/hr IV Q6H PRN PRN Reason: Pain, Mild (Pain Scale 1-3) Last Infusion: 03/09/25 16:34 Dose: Infused Documented By: CHACHO Piperacillin Sod/Tazobactam (Sod 3.375 gm/ Sodium Chloride) 50 mls @ 100 mls/hr IV Q6H [facility] Last Infusion: 03/13/25 05:23 Dose: Infused Documented By: TITO Insulin Human Lispro (Insulin Lispro 100 Unit/Ml 3 Ml Vial) [facility]; Protocol Last Admin: 03/13/25 07:54 Dose: Not Given Documented By: CHACHO Non-Admin Reason: No Insulin Coverage Ketorolac Tromethamine (Ketorolac Tromethamine 30 Mg/Ml Vial) 30 mg IVPUSH Q6H PRN PRN Reason: Pain, Moderate(Pain Scale 4-6) Last Admin: 03/10/25 07:48 Dose: 30 mg Documented By: SANA Ondansetron HCl (Ondansetron Hcl 4 Mg/2 Ml Vial) 4 mg IVPUSH QID PRN PRN Reason: Nausea Oxycodone HCl (Oxycodone Hcl Immed Release 5 Mg Tablet) 10 mg PO Q4H PRN PRN Reason: Pain, Moderate(Pain Scale 4-6) Last Admin: 03/12/25 19:58 Dose: 10 mg Documented By: TITO Sodium Chloride (0.9 % Sodium Chloride Flush 3 Ml Syringe) 3 ml [facility] Last Admin: 03/12/25 22:29 Dose: 3 ml Documented By: TITO Zolpidem Tartrate (Zolpidem Tartrate 5 Mg Tablet) 5 mg PO BEDTIME PRN PRN Reason: Insomnia Labs 03/12/25 05:25 03/12/25 05:25 Labs: Laboratory Results - last 24 hr 03/12/25 03/12/25 03/12/25 11:15 15:15 21:00 POC Glucose 114 113 125 H 03/13/25 07:27 POC Glucose 112 Procedures Date of Service Date of Service: 03/13/25 Progress Note: A&P Assessment and plan (1) Status post Nick procedure: Status: Acute Assessment and Plan: Clinically doing well Passing flatus via his stoma We will keep on clear liquids until some output more consistent Encouraged ambulation Incentive spirometry Pain management Time Spent With Patient Time: Total time managing care of this patient today ____ minutes. Quality Stroke Does the patient have a stroke diagnosis?: No VTE Prior VTE?: No VTE Risk Level:: Surgical - moderate VTE Device Contraindication: N/A - Device Ordered VTE Drug Contraindication: N/A - Med Ordered
[2025-03-13] MEDS: oxyCODONE HCl Immed Release 5 MG TABLET 10 MG PO ×2 (09:04→18:31)
[2025-03-13] MEDS: 0.9 % Sodium Chloride Flush 3 ML SYRINGE IVFLUSH ×3 (09:04→20:17)
[2025-03-13 11:56] LABS: Glucose, Whole Blood 135 mg/dL (60-115)
[2025-03-13 14:00] VITALS: BP 121/75; PULSE 93; RESP 16; TEMP 36.9; O2SAT 94
[2025-03-13 15:46] VITALS: BP 118/88; PULSE 91; RESP 18; TEMP 37.2; O2SAT 94
[2025-03-13 16:25] LABS: Glucose, Whole Blood 114 mg/dL (60-115)
[2025-03-13 19:17] VITALS: BP 138/77; PULSE 106; RESP 18; TEMP 37.1; O2SAT 93
[2025-03-13 20:22] LABS: Glucose, Whole Blood 123 mg/dL (60-115)
[2025-03-14 03:22] VITALS: BP 133/80; PULSE 92; RESP 20; TEMP 37.4; O2SAT 94
[2025-03-14] MEDS: oxyCODONE HCl Immed Release 5 MG TABLET 10 MG PO ×3 (04:53→23:10)
[2025-03-14 07:33] VITALS: BP 128/78; PULSE 91; RESP 16; TEMP 36.4; O2SAT 95
[2025-03-14 07:52] LABS: Glucose, Whole Blood 116 mg/dL (60-115)
[2025-03-14] MEDS: 0.9 % Sodium Chloride Flush 3 ML SYRINGE IVFLUSH ×3 (09:11→23:11)
--- NOTE | 2025-03-14 10:02 | P.PNGS_ITS ---
Subjective Subjective Date of Service: 03/14/25 Interval history: Feels well today Says he has much less pain Passing flatus via the stoma but no stools yet He says he has been ambulating Tolerating clear liquids Physical Exam 2 Vital Signs: Vital Signs: Last Vital Signs Temp 97.5 F 03/14/25 07:33 Pulse 91 03/14/25 07:33 Resp 16 03/14/25 07:33 BP 128/78 03/14/25 07:33 Pulse Ox 95 03/14/25 07:33 O2 Del Method Room Air 03/14/25 07:33 O2 Flow Rate 2 03/10/25 07:47 BMI result Body Mass Index 34.0 Const: General: comfortable and no acute distress Resp: Effort & Inspection: normal respiratory effort Cardio: Rate: regular rate GI: Other: Stoma retracted a little bit but viable, with gas but no stool Palpation (GI): Soft to palpation and not firm Objective Data Active Medications Dextrose (Dextrose 50 % 25 Gm/50 Ml Syringe) 25 gm IVPUSH Q15M PRN; Protocol PRN Reason: per Hypoglycemia Standing Ord. Enoxaparin Sodium (Enoxaparin Sodium 40 Mg/0.4 Ml Syringe) 40 mg SUBCUT Q24H [facility] Last Admin: 03/13/25 20:16 Dose: 40 mg Documented By: TITO Glucose (Glucose Gel 15 Gm Gel..Gram.) 15 gm PO Q15M PRN; Protocol PRN Reason: per Hypoglycemia Standing Ord. Piperacillin Sod/Tazobactam (Sod 3.375 gm/ Sodium Chloride) 50 mls @ 100 mls/hr IV Q6H [facility] Last Infusion: 03/14/25 05:32 Dose: Infused Documented By: TITO Insulin Human Lispro (Insulin Lispro 100 Unit/Ml 3 Ml Vial) 0 unit SUBCUT QIDACHS [facility]; Protocol Last Admin: 03/14/25 07:54 Dose: Not Given Documented By: CHACHO Non-Admin Reason: No Insulin Coverage Ketorolac Tromethamine (Ketorolac Tromethamine 30 Mg/Ml Vial) 30 mg IVPUSH Q6H PRN PRN Reason: Pain, Moderate(Pain Scale 4-6) Last Admin: 03/10/25 07:48 Dose: 30 mg Documented By: SANA Ondansetron HCl (Ondansetron Hcl 4 Mg/2 Ml Vial) 4 mg IVPUSH QID PRN PRN Reason: Nausea Oxycodone HCl (Oxycodone Hcl Immed Release 5 Mg Tablet) 10 mg PO Q4H PRN PRN Reason: Pain, Moderate(Pain Scale 4-6) Last Admin: 03/14/25 04:53 Dose: 10 mg Documented By: TITO Sodium Chloride (0.9 % Sodium Chloride Flush 3 Ml Syringe) [facility] Last Admin: 03/14/25 09:11 Dose: 3 ml Documented By: CHACHO Labs 03/12/25 05:25 03/12/25 05:25 Labs: Laboratory Results - last 24 hr 03/13/25 03/13/25 03/13/25 11:40 16:17 20:15 POC Glucose 135 H 114 123 H 03/14/25 07:33 POC Glucose 116 H Microbiology Microbiology Results: Microbiology 03/08/25 10:55 Blood Culture - Final Blood - Venous No growth after 5 days. 03/08/25 10:41 Blood Culture - Final Blood - Venous No growth after 5 days. Procedures Date of Service Date of Service: 03/14/25 Progress Note: A&P Assessment and plan (1) Perforation of sigmoid colon due to diverticulitis: Status: Acute Assessment and Plan: Status post Nick's procedure Tolerating clear liquids Passing flatus but no stools via the stoma I did offer to advance his diet and see how he does with regular food but he says he wants to stay on clear liquids Continue ambulation Await return of GI function Clinically doing well Time Spent With Patient Time: Total time managing care of this patient today ____ minutes. Quality Stroke Does the patient have a stroke diagnosis?: No VTE Prior VTE?: No VTE Risk Level:: Surgical - moderate VTE Device Contraindication: N/A - Device Ordered VTE Drug Contraindication: N/A - Med Ordered
[2025-03-14 11:17] LABS: Glucose, Whole Blood 131 mg/dL (60-115)
[2025-03-14 15:22] VITALS: BP 144/80; PULSE 86; RESP 18; TEMP 36.6; O2SAT 93
[2025-03-14 16:19] LABS: Glucose, Whole Blood 110 mg/dL (60-115)
[2025-03-14 19:05] VITALS: BP 128/64; PULSE 93; RESP 18; TEMP 36.3; O2SAT 94
[2025-03-14 20:13] LABS: Glucose, Whole Blood 119 mg/dL (60-115)
[2025-03-14 23:38] VITALS: BP 129/75; PULSE 91; RESP 20; O2SAT 95
[2025-03-15 03:22] VITALS: BP 129/73; PULSE 91; RESP 18; TEMP 36.9; O2SAT 94
--- NOTE | 2025-03-15 07:07 | PM.PNGS ---
Subjective Subjective Date of Service: 03/15/25 Physical Exam Vital Signs: Vital Signs: Last Vital Signs Temp 98.5 F 03/15/25 03:22 Pulse 91 03/15/25 03:22 Resp 18 03/15/25 03:22 BP 129/73 03/15/25 03:22 Pulse Ox 94 03/15/25 03:22 O2 Del Method Room Air 03/15/25 03:22 O2 Flow Rate 2 03/10/25 07:47 BMI result Body Mass Index 34.0 Objective Data Active Medications Dextrose (Dextrose 50 % 25 Gm/50 Ml Syringe) 25 gm IVPUSH Q15M PRN; Protocol PRN Reason: per Hypoglycemia Standing Ord. Enoxaparin Sodium (Enoxaparin Sodium 40 Mg/0.4 Ml Syringe) 40 mg SUBCUT Q24H [facility] Last Admin: 03/14/25 19:24 Dose: 40 mg Documented By: AYSE Glucose (Glucose Gel 15 Gm Gel..Gram.) 15 gm PO Q15M PRN; Protocol PRN Reason: per Hypoglycemia Standing Ord. Piperacillin Sod/Tazobactam (Sod 3.375 gm/ Sodium Chloride) 50 mls @ 100 mls/hr IV Q6H [facility] Last Admin: 03/15/25 06:04 Dose: 100 mls/hr Documented By: AYSE Insulin Human Lispro (Insulin Lispro 100 Unit/Ml 3 Ml Vial) 0 unit SUBCUT QIDACHS [facility]; Protocol Last Admin: 03/14/25 20:14 Dose: Not Given Documented By: AYSE Non-Admin Reason: No Insulin Coverage Ondansetron HCl (Ondansetron Hcl 4 Mg/2 Ml Vial) 4 mg IVPUSH QID PRN PRN Reason: Nausea Oxycodone HCl (Oxycodone Hcl Immed Release 5 Mg Tablet) 10 mg PO Q4H PRN PRN Reason: Pain, Moderate(Pain Scale 4-6) Last Admin: 03/14/25 23:10 Dose: 10 mg Documented By: AYSE Sodium Chloride (0.9 % Sodium Chloride Flush 3 Ml Syringe) 3 ml IVFLUSH QSHIFT [facility] Last Admin: 03/14/25 23:11 Dose: 3 ml Documented By: AYSE Labs 03/12/25 05:25 03/12/25 05:25 Labs: Laboratory Results - last 24 hr 06/22/25 06/22/25 06/22/25 07:33 11:11 16:15 POC Glucose 116 H 131 H 110 03/14/25 20:04 POC Glucose 119 H Procedures Date of Service Date of Service: 03/15/25 Progress Note: A&P Time Spent With Patient Time: Total time managing care of this patient today ____ minutes. Quality Stroke Does the patient have a stroke diagnosis?: No VTE Prior VTE?: No VTE Risk Level:: Surgical - moderate VTE Device Contraindication: N/A - Device Ordered VTE Drug Contraindication: N/A - Med Ordered
--- NOTE | 2025-03-15 07:08 | PM.PNGS ---
Subjective Subjective Date of Service: 03/15/25 <[facility] Last Filed: 03/15/25 07:23> 03/15/25 <Jacky Hoffmann PA-C - Last Filed: 03/15/25 07:51> 03/15/25 <Teodoro Bejarano MD - Last Filed: 03/15/25 08:05> Interval history: Jai Herrera is a 54 year old male s/p Nick's procedure, POD6. He states he is in a lot of pain today, primarily around the incision site. He reports that his current pain regimen is working well, he is just awaiting his first dose today. He states he has not passed any stool in the ostomy pouch, only gas, and that this worries him. He is ambulating, tolerating a clear liquid diet, and consistent with spirometer use. He states he had chest pain last night that has resolved. He denies any current fever, chills, chest pain, shortness of breath, nausea or vomitting. <[facility] Last Filed: 03/15/25 07:23> Physical Exam Vital Signs: Vital Signs: Last Vital Signs Temp 98.5 F 03/15/25 03:22 Pulse 91 03/15/25 03:22 Resp 18 03/15/25 03:22 BP 129/73 03/15/25 03:22 Pulse Ox 94 03/15/25 03:22 O2 Del Method Room Air 03/15/25 03:22 O2 Flow Rate 2 03/10/25 07:47 BMI result Body Mass Index 34.0 <[facility] Last Filed: 03/15/25 07:23> Const: General: no acute distress <[facility] Last Filed: 03/15/25 07:23> Orientation/consciousness: patient oriented x3 <[facility] Last Filed: 03/15/25 07:23> Resp: Effort & Inspection: normal respiratory effort <[facility] Last Filed: 03/15/25 07:23> Effort & Inspection: able to speak in complete sentences <Jacky Hoffmann PA-C - Last Filed: 03/15/25 07:51> Auscultation: clear to auscultation bilaterally [facility] Last Filed: 03/15/25 07:23> Cardio: Rate: regular rate <[facility] Last Filed: 03/15/25 07:23> Rhythm: regular rhythm <[facility] Last Filed: 03/15/25 07:23> Heart sounds: S1 normal heart sound present and S2 normal heart sound present <[facility] Last Filed: 03/15/25 07:23> GI: Inspection: Yes normal to inspection (No signs of infection at the incision site.) <[facility] Last Filed: 03/15/25 07:23> Inspection: No distended <Jacky Hoffmann PA-C - Last Filed: 03/15/25 07:51> Palpation (GI): Soft to palpation and Tenderness to palpation present (GI) (Tenderness present around the incision site.) <[facility] Last Filed: 03/15/25 07:23> Palpation (GI): not firm, no guarding and not rigid <Jacky Hoffmann PA-C - Last Filed: 03/15/25 07:51> Neuro: General: patient oriented x3 <[facility] Last Filed: 03/15/25 07:23> Objective Data Active Medications Dextrose (Dextrose 50 % 25 Gm/50 Ml Syringe) 25 gm IVPUSH Q15M PRN; Protocol PRN Reason: per Hypoglycemia Standing Ord. Enoxaparin Sodium (Enoxaparin Sodium 40 Mg/0.4 Ml Syringe) 40 mg SUBCUT Q24H COUNT INCLUDES THE [facility] Last Admin: 03/14/25 19:24 Dose: 40 mg Documented By: AYSE Glucose (Glucose Gel 15 Gm Gel..Gram.) 15 gm PO Q15M PRN; Protocol PRN Reason: per Hypoglycemia Standing Ord. Piperacillin Sod/Tazobactam (Sod 3.375 gm/ Sodium Chloride) 50 mls @ 100 mls/hr IV Q6H COUNT INCLUDES THE [facility] Last Admin: 03/15/25 06:04 Dose: 100 mls/hr Documented By: AYSE Insulin Human Lispro (Insulin Lispro 100 Unit/Ml 3 Ml Vial) 0 unit SUBCUT QIDACHS COUNT INCLUDES THE [facility]; Protocol Last Admin: 03/14/25 20:14 Dose: Not Given Documented By: AYSE Non-Admin Reason: No Insulin Coverage Ondansetron HCl (Ondansetron Hcl 4 Mg/2 Ml Vial) 4 mg IVPUSH QID PRN PRN Reason: Nausea Oxycodone HCl (Oxycodone Hcl Immed Release 5 Mg Tablet) 10 mg PO Q4H PRN PRN Reason: Pain, Moderate(Pain Scale 4-6) Last Admin: 03/14/25 23:10 Dose: 10 mg Documented By: AYSE Sodium Chloride (0.9 % Sodium Chloride Flush 3 Ml Syringe) 3 ml IVFLUSH [facility] Last Admin: 03/14/25 23:11 Dose: 3 ml Documented By: AYSE <[facility] - Last Filed: 03/15/25 07:23> Labs CBC & Chem 7: 03/12/25 05:25 03/12/25 05:25 <[facility] - Last Filed: 03/15/25 07:23> Labs: Laboratory Results - last 24 hr 03/14/25 03/14/25 03/14/25 07:33 11:11 16:15 POC Glucose 116 H 131 H 110 03/14/25 20:04 POC Glucose 119 H <[facility] - Last Filed: 03/15/25 07:23> Procedures Date of Service Date of Service: 03/15/25 <[facility] - Last Filed: 03/15/25 07:23> 03/15/25 <Jacky Hoffmann PA-C - Last Filed: 03/15/25 07:51> 03/15/25 <Teodoro Bejarano MD - Last Filed: 03/15/25 08:05> Progress Note: A&P Assessment and plan (1) Status post Nick procedure: Status: Acute <[facility] - Last Filed: 03/15/25 07:23> (2) Perforation of sigmoid colon due to diverticulitis: Status: Acute <[facility] - Last Filed: 03/15/25 07:23> Assessment and Plan: Patient is s/p Nick's procedure, POD6. He states he is in a lot of pain today, primarily around the incision site. Moderate tenderness to palpation is present, around the incision site. The incision site looks dry, clean, and intact, with no signs of infection. His ostomy pouch does not contain any formed stool. He states that this worries him, but he would like to stay on a clear liquid diet. He states that he was experiencing some chest pain last night, but it has resolved. No abnormal heart sounds were heard on ausculation, with a regular rate and rhythm. Lungs were clear to auscultation bilaterally. He is ambulating, tolerating a clear liquid diet, and consistent with spirometer use. He denies any current fever, chills, chest pain, shortness of breath, nausea or vomiting. He does not have any new labs, but previous labs revealed an improving leukocytosis and mild anemia. Repeat labs. Continue pain regimen Continue clear liquid diet Repeat CBC and BMP Ambulation and spirometer use encouraged <[facility] - Last Filed: 03/15/25 07:23> Patient is s/p Nick's procedure, POD6. He states he is in a lot of pain today, primarily around the incision site. Moderate tenderness to palpation is present, around the incision site. The incision site looks dry, clean, and intact, with no signs of infection. His ostomy pouch does not contain any formed stool. He states that this worries him, but he would like to stay on a clear liquid diet. He states that he was experiencing some chest pain last night, but it has resolved. No abnormal heart sounds were heard on ausculation, with a regular rate and rhythm. Lungs were clear to auscultation bilaterally. He is ambulating, tolerating a clear liquid diet, and consistent with spirometer use. He denies any current fever, chills, chest pain, shortness of breath, nausea or vomiting. He does not have any new labs, but previous labs revealed an improving leukocytosis and mild anemia. Continue pain regimen Ambulation and spirometer use encouraged Patient seen and evaluated independently, I agree with the above assessment and plan. Patient overall doing well, a bit nervous about starting diet. Patient now passing small amounts of stool via stoma. Will resume regular diet. Encouraged him to start with smaller meals today. Trial regular diet pain control as needed possible d/c tomorrow if tolerating diet <Jacky Hoffmann PA-C - Last Filed: 03/15/25 07:51> Patient is s/p Nick's procedure, POD6. He states he is in a lot of pain today, primarily around the incision site. Moderate tenderness to palpation is present, around the incision site. The incision site looks dry, clean, and intact, with no signs of infection. His ostomy pouch does not contain any formed stool. He states that this worries him, but he would like to stay on a clear liquid diet. He states that he was experiencing some chest pain last night, but it has resolved. No abnormal heart sounds were heard on ausculation, with a regular rate and rhythm. Lungs were clear to auscultation bilaterally. He is ambulating, tolerating a clear liquid diet, and consistent with spirometer use. He denies any current fever, chills, chest pain, shortness of breath, nausea or vomiting. He does not have any new labs, but previous labs revealed an improving leukocytosis and mild anemia. Continue pain regimen Ambulation and spirometer use encouraged Patient seen and evaluated independently, I agree with the above assessment and plan. Patient overall doing well, a bit nervous about starting diet. Patient now passing small amounts of stool via stoma. Will resume regular diet. Encouraged him to start with smaller meals today. Trial regular diet pain control as needed possible d/c tomorrow if tolerating diet S/p Nick procedure postoperative day 6, wounds are clean without erythema or discharge. Ostomy with stool and gas. Agree with advancing diet today. Patient reported to have increased crackles in the right side by RN therefore chest x-ray ordered. Continue ambulation and incentive spirometry. <Teodoro Bejarano MD - Last Filed: 03/15/25 08:05> Time Spent With Patient Time: Total time managing care of this patient today ____ minutes. <[facility] - Last Filed: 03/15/25 07:23> Quality Stroke Does the patient have a stroke diagnosis?: No <Gildardo Melara - Last Filed: 03/15/25 07:23> VTE Prior VTE?: No <Gildardo Melara - Last Filed: 03/15/25 07:23> VTE Risk Level:: Surgical - moderate <[facility] Last Filed: 03/15/25 07:23> VTE Device Contraindication: N/A - Device Ordered <[facility] Last Filed: 03/15/25 07:23> VTE Drug Contraindication: N/A - Med Ordered <[facility] Last Filed: 03/15/25 07:23>
--- NOTE | 2025-03-15 07:13 | HO.PM.IMPN ---
Subjective Subjective Date of Service: 03/15/25 Interval History: Pain moderately well controlled Passing stool through ostomy Tolerating diet No N/V Denies SOB or difficulty breathing Review of Systems Review of Systems: Yes all other systems are reviewed and are negative Physical Exam Vital Signs: Vital Signs: Last Vital Signs Temp 98.7 F 03/16/25 03:32 Pulse 80 03/16/25 03:32 Resp 16 03/16/25 03:32 BP 137/74 03/16/25 03:32 Pulse Ox 94 03/16/25 03:32 O2 Del Method Room Air 03/16/25 03:32 O2 Flow Rate 2 03/10/25 07:47 BMI result Body Mass Index 34.0 General: AOx3, no acute distress Resp: CTA bilaterally CVS: S1, S2, RRR GI: +BS, no distention, appropriate tenderness at surgical sites; colostomy in place with stool in bag Skin: Warm, dry Neuro: Cranial nerves II-XII grossly intact bilaterally. Motor grossly intact bilaterally Extremities: No edema Psych: Appropriate affect Objective Data Active Medications Dextrose (Dextrose 50 % 25 Gm/50 Ml Syringe) 25 gm IVPUSH Q15M PRN; Protocol PRN Reason: per Hypoglycemia Standing Ord. Enoxaparin Sodium (Enoxaparin Sodium 40 Mg/0.4 Ml Syringe) 40 mg SUBCUT Q24H [facility] Last Admin: 03/15/25 19:06 Dose: 40 mg Documented By: AYSE Glucose (Glucose Gel 15 Gm Gel..Gram.) 15 gm PO Q15M PRN; Protocol PRN Reason: per Hypoglycemia Standing Ord. Piperacillin Sod/Tazobactam (Sod 3.375 gm/ Sodium Chloride) 50 mls @ 100 mls/hr IV Q6H [facility] Last Infusion: 03/16/25 06:08 Dose: Infused Documented By: AYSE Insulin Human Lispro (Insulin Lispro 100 Unit/Ml 3 Ml Vial) 0 unit SUBCUT QIDACHS [facility]; Protocol Last Admin: 03/15/25 21:34 Dose: Not Given Documented By: AYSE Non-Admin Reason: No Insulin Coverage Ondansetron HCl (Ondansetron Hcl 4 Mg/2 Ml Vial) 4 mg IVPUSH QID PRN PRN Reason: Nausea Oxycodone HCl (Oxycodone Hcl Immed Release 5 Mg Tablet) 10 mg PO Q4H PRN PRN Reason: Pain, Moderate(Pain Scale 4-6) Last Admin: 03/15/25 22:59 Dose: 10 mg Documented By: AYSE Sodium Chloride (0.9 % Sodium Chloride Flush 3 Ml Syringe) [facility] Last Admin: 03/15/25 22:50 Dose: 3 ml Documented By: AYSE Labs 03/12/25 05:25 03/12/25 05:25 Labs: Laboratory Results - last 24 hr 03/15/25 03/15/25 03/15/25 07:20 11:19 16:20 POC Glucose 101 148 H 119 H 03/15/25 21:19 POC Glucose 131 H Assessment and Plan (1) Perforation of sigmoid colon due to diverticulitis: Status: Acute (2) Status post Nick procedure: Status: Acute Plan 54-year-old male with history of hypertension diabetes and renal cancer presents with proximally 24 hours of diffuse lower abdominal pain. Workup in ER consistent with perforation of sigmoid colon due to diverticulitis. Underwent Nick's procedure on 03/09. Sigmoid perforation S/P Nick's pouch Passing stool, tolerating diet Pain moderately well controlled Plan as per surgery Diet controlled diabetes type 2 Well controlled on SSI Diabetic diet Hypertension Initially soft BP post-op Has been well controlled off therapies for over a week Continue to hold hydrochlorothiazide, metoprolol, and lisinopril Currently no indication to resume anti-hypertensives If pt continues to have well-controlled BP, no need to continue on discharge Should follow up with PCP for BP management and whether any meds should be resumed Thank you for allowing us to participate in the care of this pt. Will sign off for now. Please reconsult if any acute need or issue arises. Quality Stroke Does the patient have a stroke diagnosis?: No VTE Prior VTE?: No VTE Risk Level:: Surgical - moderate VTE Device Contraindication: N/A - Device Ordered VTE Drug Contraindication: N/A - Med Ordered
[2025-03-15] MEDS: oxyCODONE HCl Immed Release 5 MG TABLET 10 MG PO ×3 (07:19→22:59)
[2025-03-15 07:34] LABS: Glucose, Whole Blood 101 mg/dL (60-115)
[2025-03-15] MEDS: 0.9 % Sodium Chloride Flush 3 ML SYRINGE IVFLUSH ×3 (07:34→22:50)
--- NOTE | 2025-03-15 07:47 | PC.NURSE ---
RightLungs fine crackles ,new since previous assessment , notified
[2025-03-15 08:12] VITALS: BP 161/78; PULSE 97; RESP 18; TEMP 36.6; O2SAT 93
[2025-03-15 11:29] LABS: Glucose, Whole Blood 148 mg/dL (60-115)
--- NOTE | 2025-03-15 15:20 | HO.OSTOMY ---
Ostomy Consult:Follow up teaching 50yr old male [place] [facility] [place] see H&P for detailed history and admission.? Consult for new ostomy teaching. He had an End Colostomy creation on 03/09/[address] Bejarano. Oil Laboratory Analyst at bedside throughout visit. Chart reviewed and arrival to beside patient notes stool and gas production has started today., He is slightly over whelmed when emptying the pouch but understands the more he participates the easier it will be. He reports he did empty the pouch a few times already. His pouch is noted to be silent leak at the 9 o'clock area. He is agreeable to a convex pouch and belt to aid in his flat retracted stoma. He understands the rational behind the convex pouch. He reports consistent ambulation today and IS use. He reports pain well controlled for the most part 0/10 at the current moment. He is not wearing an abdominal binder at this time. He was able to verbally walk me through a pouch change and was able to provide a demonstration of an open close on a clean empty pouch. He will benefit from VNA services at time of d/c. He was changed into a convex coloplast [id number] cut [id number] oval opening. He was able to cut the pouch with minimal assistance. He did have some difficulty with seeing his toms due to his abdomen size and pain. He reports understanding using a mirror at home to aid in assessment. he is noted to have thick hair to his abdomen - he was shaved to increase adherence - he was educated on the importance of protecting the stoma when clipping his hair on his abdomen - he reports understanding. He was advised to use clippers instead of straight razor - he reports understanding. He tolerated the convex pouch and the belt - he reported preferring the convex pouch and belt and when the stoma was observed it did appear to have the desire effect by raising the stoma profile. Agreeable to coloplast shelter kit for supplies. He denies questions at this time. Details from previous teaching: emergency vehicle dispatcher present throughout visit. ?He had an End Colostomy creation on 03/09/[address] Saenz. ?Upon entry into patient's room, he is sitting in his recliner chair, he is alert and oriented x 3, he currently has no complaints. Introductions were completed, he is agreeable to continuing with teaching. ? We discussed his pain control at 5/10 at the current moment, he reports increasing the use of his IS and ambulating the entire unit (1x today so far). ?We began by discussing general knowledge about the Colostomy and questions he had. ?We discussed opening and closing the ostomy pouch. He was able to independently provide a return demonstration on an empty pouch. ?He had not yet emptied his pouch only bowel sweat is noted.? We discussed the importance of emptying pouch when 1/3 to 1/2 full, how to empty pouch, and lining water with toilet paper to prevent splash back. With an empty Coloplast pouch he performed a demonstration. He was also educated on when to contact sales account executive/Dr Bejarano's office/seek emergency medical treatment. Patient was given some ostomy pouches for transition to home. Aware that Rx written for pouches and rings will be sent by Outpt nurse to [place] for home delivery.? Reviewed written education with patient and left at bedside for further review. ?He did watch the education videos supplied by [facility]. Permission was granted for pouch assessment and no leak was noted however pouch was applied in side position and is not condusive to patient independence. He was agreeable to pouch change. We performed a stoma model change first. Pouch removed and stoma was noted to be red moist viable but significantly retracted within crease of abdomen. He will benefit from convex pouching in the future however given new stoma will use flat pouch at this time. Coloplast 13904 used cut to 30 x 40 oval. Midline dressing removed due to be attached to pouch and stool noted on dressing. Midline incision observed and cleansed. No erythema noted no drainage noted - well approximated. Dry dressing replaced. He observed the pouch change but did not participate. He reported having no questions at this time. ?Patient was made aware that I will return to bedside later in week for ongoing education - however to note patient seems to have a good understanding of care and material at this time. ?He will benefit from VNA services at time of discharge. ?All questions and concerns addressed at this time. Next teaching session goals: Demonstrate open and close independently Steps to a pouch change he is able to recall We discussed the following steps: 1. Empty pouch before pouch change 2. Remove pouch using push/pull technique from top to bottom 3. Cleanse stoma and skin with tap water only - no soap or baby wipes 4. Pat dry 5. Measure stoma and cut new pouch no more than 1/8 inch larger than stoma and no smaller than stoma 6. If instructed by your ostomy nurse stretch barrier seal to the size of the stoma and press onto skin around stoma (up to the edge of the stoma but not onto the stoma) 7. Press the new pouch into place and hold for several minutes (close pouch tail) 8. Empty pouch when 1/3 to 1/2 full 9. Change pouch twice weekly on a schedule (for example, every Saturday and ) and as needed for any leaking (feels like intense itch or burn at edge of stoma) 10. May order pre-cut pouches (already cut to size of stoma) once stoma measures the same size consistently. ?
[2025-03-15 16:25] VITALS: BP 131/74; PULSE 97; RESP 18; TEMP 36.9; O2SAT 94
[2025-03-15 16:43] LABS: Glucose, Whole Blood 119 mg/dL (60-115)
[2025-03-15 19:28] VITALS: BP 128/70; PULSE 97; RESP 14; TEMP 37.1; O2SAT 94
[2025-03-15 20:00] VITALS: BP 128/70; PULSE 93; RESP 14; TEMP 36.1; O2SAT 96
[2025-03-15 21:24] LABS: Glucose, Whole Blood 131 mg/dL (60-115)
--- NOTE | 2025-03-15 22:33 | PC.NURSE ---
Patient started passing soft stool via stoma. 100 ml so far brown ,soft.
[2025-03-16 03:32] VITALS: BP 137/74; PULSE 80; RESP 16; TEMP 37.1; O2SAT 94
--- NOTE | 2025-03-16 06:52 | P.PNGS_ITS ---
Subjective Subjective Date of Service: 03/16/25 <[facility] Last Filed: 03/16/25 07:04> 03/16/25 <Jacky Hoffmann PA-C - Last Filed: 03/16/25 07:34> Interval history: Jai Herrera is a 54 year old male s/p Nick's procedure, POD7. He states that he does not have any abdominal pain currently, as he has just received his pain medication. He started eating solid foods yesterday after being on a clear liquid diet since the surgery. He states he is tolerating food well, and had lots of stool in his ostomy pouch last night. He is continuing to walk around the unit, and is consistent with spirometer use. He denies any fevers, chills, chest pain, shortness of breath, nausea or vomiting. <[facility] Last Filed: 03/16/25 07:04> Physical Exam 2 Vital Signs: Vital Signs: Last Vital Signs Temp 98.7 F 03/16/25 03:32 Pulse 80 03/16/25 03:32 Resp 16 03/16/25 03:32 BP 137/74 03/16/25 03:32 Pulse Ox 94 03/16/25 03:32 O2 Del Method Room Air 03/16/25 03:32 O2 Flow Rate 2 03/10/25 07:47 BMI result Body Mass Index 34.0 <[facility] Filed: 03/16/25 07:04> Const: General: comfortable and no acute distress <[facility] Filed: 03/16/25 07:04> Orientation/consciousness: patient oriented x3 <[facility] Last Filed: 03/16/25 07:04> Resp: Effort & Inspection: normal respiratory effort and able to speak in complete sentences <[facility] Filed: 03/16/25 07:04> Auscultation: wheezes (Some wheezing heard throughout the right lung hairston.) <[facility] Last Filed: 03/16/25 07:04> GI: Inspection: Yes normal to inspection <[facility] Filed: 03/16/25 07:04> Palpation (GI): Soft to palpation and Tenderness to palpation present (GI) (Tenderness is limited to the incision site) <[facility] Last Filed: 03/16/25 07:04> Skin: Other: Incision site is clean, dry and intact, with no signs of infection. <[facility] Last Filed: 03/16/25 07:04> Neuro: General: patient oriented x3 <[facility] Last Filed: 03/16/25 07:04> Objective Data Active Medications Dextrose (Dextrose 50 % 25 Gm/50 Ml Syringe) 25 gm IVPUSH Q15M PRN; Protocol PRN Reason: per Hypoglycemia Standing Ord. Enoxaparin Sodium (Enoxaparin Sodium 40 Mg/0.4 Ml Syringe) 40 mg SUBCUT Q24H [facility] Last Admin: 03/15/25 19:06 Dose: 40 mg Documented By: AYSE Glucose (Glucose Gel 15 Gm Gel..Gram.) 15 gm PO Q15M PRN; Protocol PRN Reason: per Hypoglycemia Standing Ord. Piperacillin Sod/Tazobactam (Sod 3.375 gm/ Sodium Chloride) 50 mls @ 100 mls/hr IV Q6H [facility] Last Infusion: 03/16/25 06:08 Dose: Infused Documented By: AYSE Insulin Human Lispro (Insulin Lispro 100 Unit/Ml 3 Ml Vial) 0 unit SUBCUT QIDACHS [facility]; Protocol Last Admin: 03/15/25 21:34 Dose: Not Given Documented By: AYSE Non-Admin Reason: No Insulin Coverage Ondansetron HCl (Ondansetron Hcl 4 Mg/2 Ml Vial) 4 mg IVPUSH QID PRN PRN Reason: Nausea Oxycodone HCl (Oxycodone Hcl Immed Release 5 Mg Tablet) 10 mg PO Q4H PRN PRN Reason: Pain, Moderate(Pain Scale 4-6) Last Admin: 03/15/25 22:59 Dose: 10 mg Documented By: AYSE Sodium Chloride (0.9 % Sodium Chloride Flush 3 Ml Syringe) [facility] Last Admin: 03/15/25 22:50 Dose: 3 ml Documented By: AYSE <[facility] Last Filed: 03/16/25 07:04> Labs CBC & Chem 7: 03/12/25 05:25 03/12/25 05:25 <Gildardo Melara - Last Filed: 03/16/25 07:04> Labs: Laboratory Results - last 24 hr 03/15/25 03/15/25 03/15/25 07:20 11:19 16:20 POC Glucose 101 148 H 119 H 03/15/25 21:19 POC Glucose 131 H <[facility]ild[facility] Melara - Last Filed: 03/16/25 07:04> Procedures Date of Service Date of Service: 03/16/25 <[facility] Sheppardnader - Last Filed: 03/16/25 07:04> 03/16/25 <Jacky Hoffmann PA-C - Last Filed: 03/16/25 07:34> Progress Note: A&P Assessment and plan (1) Status post Nick procedure: Status: Acute <[facility] - Last Filed: 03/16/25 07:04> Assessment and Plan: Patient is s/p Nick's procedure, POD7. He states he is does not currently have any abdominal pain, as he just recieved his pain medication. Moderate tenderness to palpation is present, limited to the incision site. The incision site looks dry, clean, and intact, with no signs of infection. He started a regular diet yesterday, and states he is tolerating solid food well. The patient states he passed a lot of stool last night in the ostomy pouch. Currently there is some formed stool in the ostomy pouch. No abnormal heart sounds were heard on ausculation, with a regular rate and rhythm. Mild wheezing heard in the right lung hairston on auscultation. He is ambulating, and consistent with spirometer use. He denies any current fever, chills, chest pain, shortness of breath, nausea or vomiting. He does not have any new labs, but previous labs revealed an improving leukocytosis and mild anemia. Continue pain regimen Continue regular diet Repeat CBC and BMP Ambulation and spirometer use encouraged <Gildardo Sheppard - Last Filed: 03/16/25 07:04> Patient is s/p Nick's procedure, POD7. He states he is does not currently have any abdominal pain, as he just recieved his pain medication. Moderate tenderness to palpation is present, limited to the incision site. The incision site looks dry, clean, and intact, with no signs of infection. He started a regular diet yesterday, and states he is tolerating solid food well. The patient states he passed a lot of stool last night in the ostomy pouch. Currently there is some formed stool in the ostomy pouch. No abnormal heart sounds were heard on ausculation, with a regular rate and rhythm. Mild wheezing heard in the right lung hairston on auscultation. He is ambulating, and consistent with spirometer use. He denies any current fever, chills, chest pain, shortness of breath, nausea or vomiting. He does not have any new labs, but previous labs revealed an improving leukocytosis and mild anemia. Continue pain regimen Continue regular diet Repeat CBC and BMP Ambulation and spirometer use encouraged Patient seen and evaluated independently, I agree with the above assesment and plan. I was unable to appreciate wheezing on exam, patient denying respiratory complaints. Discussed d/c with patient, states he does not feel ready, he is nervous about caring for ostomy, will talk with ostomy care nurse for further educaqtion. <Jacky Hoffmann PA-C - Last Filed: 03/16/25 07:34> Time Spent With Patient Time: Total time managing care of this patient today ____ minutes. <[facility] - Last Filed: 03/16/25 07:04> Quality Stroke Does the patient have a stroke diagnosis?: No <[facility] Last Filed: 03/16/25 07:04> VTE Prior VTE?: No <[facility] Last Filed: 03/16/25 07:04> VTE Risk Level:: Surgical - moderate <[facility] Last Filed: 03/16/25 07:04> VTE Device Contraindication: N/A - Device Ordered <[facility] Last Filed: 03/16/25 07:04> VTE Drug Contraindication: N/A - Med Ordered <[facility] Last Filed: 03/16/25 07:04>
[2025-03-16 07:24] LABS: Glucose, Whole Blood 105 mg/dL (60-115)
[2025-03-16 07:56] VITALS: BP 141/73; PULSE 83; RESP 18; TEMP 36.8; O2SAT 93
[2025-03-16] MEDS: 0.9 % Sodium Chloride Flush 3 ML SYRINGE IVFLUSH ×3 (08:10→23:17)
[2025-03-16] MEDS: oxyCODONE HCl Immed Release 5 MG TABLET 10 MG PO (10:36)
[2025-03-16 11:21] LABS: Glucose, Whole Blood 155 mg/dL (60-115)
--- NOTE | 2025-03-16 14:28 | HO.OSTOMY ---
Addendum entered by Chika Felipe RN 03/16/25 15:57: @1557 Teaching completed with patient and patients niece - all questions asked and answered. No concern noted at this time - despite the patient being nervous for independent care he is able to verbally walk me through a change and s/s to report and when to seek medical care. He performed a pouch change on the stoma and instructed his niece the steps he was taking. He is aware out pt ostomy nurse is available to him M-F day time work hours when she is on. He has been given her card by the Surgical team, this provided him some comfort. Patient requests continued teaching tomorrow with patients sister - agreed to meet for 9am for teaching. Original Note: Ostomy Consult:Follow up teaching 50yr old male admitted to [facility] on 03/08/25 see H&P for detailed history and admission.? Consult for new ostomy teaching. He had an End Colostomy creation on 03/09/[address] Bejarano. Analysis Intern at bedside throughout visit. Chart reviewed and arrival to beside patient notes stool and gas production continues. He is slightly over whelmed when emptying the pouch but understands the more he participates the easier it will be. He reports he did empty the pouch a few times yesterday but not yet today. He is able to visually tell me when the appropriate time to empty the pouch 1/3-1/2 full. His pouch was assessed to be intact - he reports that he continues to prefer this pouch (convex coloplast [id number]) along with a belt. There is no leak noted and the stoma profile is noted to benefit from the convexity. Unfortunately he is not eligible for VNA services. He was made aware of this - he is able to verbally walk me through a pouch change and empty. He was able to provide me a demonstration as well. He refused getting up and ambulating to bathroom to empty with me - he requested we perform this later. Direct care team advised to perform with patient. His pouch was assessed and did not need to be emptied at this time. We was given enough supply for a few weeks since he will not have VNA services at home. He is set up with [employer] [facility] delivery services for supplies by the out patient ostomy nurse. All questions asked an answered prior to leaving. Will plan to see tomorrow for continued teaching and pouch change prior to d/c.
--- NOTE | 2025-03-16 15:29 | MHC.CM.PN ---
pt was scheduled to go home today with a new ostomy pt does not have a vna benefit from his insurane pt has been taught by wound care nurse additionally pt has an option to see surgical nurse oneida to assist with ostomy appliance change referral made to financial services to assist with changing insurances
[2025-03-16 15:50] LABS: Glucose, Whole Blood 132 mg/dL (60-115)
[2025-03-16 15:59] VITALS: BP 132/73; PULSE 96; RESP 18; TEMP 37.6; O2SAT 93
[2025-03-16 20:00] VITALS: BP 133/71; PULSE 119; RESP 20; TEMP 38.2; O2SAT 93
[2025-03-16 21:17] LABS: Glucose, Whole Blood 138 mg/dL (60-115)
[2025-03-16 21:29] VITALS: PULSE 116; TEMP 38.2; O2SAT 96
[2025-03-16 23:25] VITALS: BP 141/78; PULSE 101; RESP 18; TEMP 37.2; O2SAT 95
--- NOTE | 2025-03-16 23:36 | PC.NURSE ---
Addendum entered by Lucila Nance RN 03/17/25 00:01: temp 99 oral, hr 101 Original Note: Patient's temp 100.7 oral and heart rate ranging 112-119, there is no tylenol ordered. Dr. Saucedo notified, order for tylenol.
[2025-03-17 03:48] VITALS: BP 131/71; PULSE 83; RESP 18; TEMP 36.9; O2SAT 95
--- NOTE | 2025-03-17 06:55 | P.PNGS_ITS ---
Subjective Subjective Date of Service: 03/17/25 <[facility] Last Filed: 03/17/25 07:07> 03/17/25 <Jacky Hoffmann PA-C - Last Filed: 03/17/25 08:24> Interval history: Jai Herrera is a 54 year old male s/p Nick's procedure, POD8. Overall he's doing well. He states that he does not have any abdominal pain currently, and that he stopped taking pain medication last night. He is still tolerating solid foods well, and states he's been passing sool in the ostomy pouch. He is continuing to walk around his room, however, he states that he wasn't able to walk around the unit last night d/t knee pain. He is consistent with spirometer use. He denies any fevers, chills, chest pain, shortness of breath, nausea or vomiting. <[facility] Last Filed: 03/17/25 07:07> Physical Exam 2 Vital Signs: Vital Signs: Last Vital Signs Temp 98.4 F 03/17/25 03:48 Pulse 83 03/17/25 03:48 Resp 18 03/17/25 03:48 BP 131/71 03/17/25 03:48 Pulse Ox 95 03/17/25 03:48 O2 Del Method Room Air 03/17/25 03:48 O2 Flow Rate 2 03/10/25 07:47 BMI result Body Mass Index 34.0 <[facility] Last Filed: 03/17/25 07:07> Const: General: healthy appearing and no acute distress <[facility] Filed: 03/17/25 07:07> Orientation/consciousness: patient oriented x3 <[facility] Filed: 03/17/25 07:07> Resp: Effort & Inspection: normal respiratory effort and able to speak in complete sentences <[facility] Filed: 03/17/25 07:07> Auscultation: clear to auscultation bilaterally <[facility] Last Filed: 03/17/25 07:07> Cardio: Rate: regular rate <[facility] Filed: 03/17/25 07:07> Rhythm: regular rhythm <[facility] Last Filed: 03/17/25 07:07> Heart sounds: S1 normal heart sound present and S2 normal heart sound present <[facility] Last Filed: 03/17/25 07:07> GI: Other: colosotmy present, stump is pink, functioning properly. Incision clean dry and intact. Ayan in place. <Jacky Hoffmann PA-C - Last Filed: 03/17/25 08:24> Inspection: Yes normal to inspection (Incision site is clean, dry and intact, with no signs of infection.) <[facility] Last Filed: 03/17/25 07:07> Inspection: No distended <Jacky Hoffmann PA-C - Last Filed: 03/17/25 08:24> Palpation (GI): Soft to palpation and Tenderness to palpation present (GI) (Tenderness limited to the incision site area.) <[facility] Last Filed: 03/17/25 07:07> Neuro: General: patient oriented x3 <[facility] Last Filed: 03/17/25 07:07> Objective Data Active Medications Acetaminophen (Acetaminophen 325 Mg Tablet) 650 mg PO Q6H PRN PRN Reason: Pain, Mild 1-3,fever,headache Last Admin: 03/16/25 22:23 Dose: 650 mg Documented By: KATHARINE Dextrose (Dextrose 50 % 25 Gm/50 Ml Syringe) 25 gm IVPUSH Q15M PRN; Protocol PRN Reason: per Hypoglycemia Standing Ord. Enoxaparin Sodium (Enoxaparin Sodium 40 Mg/0.4 Ml Syringe) 40 mg SUBCUT Q24H [facility] Last Admin: 03/16/25 20:26 Dose: 40 mg Documented By: KATHARINE Glucose (Glucose Gel 15 Gm Gel..Gram.) 15 gm PO Q15M PRN; Protocol PRN Reason: per Hypoglycemia Standing Ord. Piperacillin Sod/Tazobactam (Sod 3.375 gm/ Sodium Chloride) 50 mls @ 100 mls/hr IV Q6H [facility] Last Infusion: 03/17/25 05:40 Dose: Infused Documented By: KATHARINE Insulin Human Lispro (Insulin Lispro 100 Unit/Ml 3 Ml Vial) 0 unit SUBCUT QIDACHS [facility]; Protocol Last Admin: 03/16/25 21:29 Dose: Not Given Documented By: KATHARINE Non-Admin Reason: No Insulin Coverage Mupirocin (Mupirocin 2 % Oint 22 Gm Tube) 1 appl TOPICAL TID [facility]; Protocol Last Admin: 03/16/25 20:26 Dose: 1 appl Documented By: KATHARINE Ondansetron HCl (Ondansetron Hcl 4 Mg/2 Ml Vial) 4 mg IVPUSH QID PRN PRN Reason: Nausea Oxycodone HCl (Oxycodone Hcl Immed Release 5 Mg Tablet) 10 mg PO Q4H PRN PRN Reason: Pain, Moderate(Pain Scale 4-6) Last Admin: 03/12/25 22:44 Dose: 10 mg Documented By: TITO Sodium Chloride (0.9 % Sodium Chloride Flush 3 Ml Syringe) [facility] Last Admin: 03/16/25 23:17 Dose: 3 ml Documented By: KATHARINE <[facility] - Last Filed: 03/17/25 07:07> Labs CBC & Chem 7: 03/12/25 05:25 03/12/25 05:25 <[facility] - Last Filed: 03/17/25 07:07> Labs: Laboratory Results - last 24 hr 03/16/25 03/16/25 03/16/25 07:17 11:16 15:46 POC Glucose 105 155 H 132 H 03/16/25 21:12 POC Glucose 138 H <[facility] - Last Filed: 03/17/25 07:07> Procedures Date of Service Date of Service: 03/17/25 <[facility] - Last Filed: 03/17/25 07:07> 03/17/25 <Jacky Hoffmann PA-C - Last Filed: 03/17/25 08:24> Progress Note: A&P Assessment and plan (1) Status post Nick procedure: Status: Acute <[facility] - Last Filed: 03/17/25 07:07> Assessment and Plan: Patient is s/p Nick's procedure, POD8. Overall he's doing well. He states he is does not currently have any abdominal pain, and stopped taking his pain medication last night. Moderate tenderness to palpation is present, limited to the incision site. The incision site looks dry, clean, and intact, with no signs of infection. He states he is tolerating solid food well, and there is a moderate amount of soft, formed stool in the ostomy pouch. No abnormal heart sounds were heard on auscultation, with a regular rate and rhythm. Lungs were clear to auscultation bilaterally. He is ambulating around his room, and consistent with spirometer use. He denies any current fever, chills, chest pain, shortness of breath, nausea or vomiting. He does not have any new labs, but previous labs revealed an improving leukocytosis and mild anemia. Patient is ready for discharge. Continue pain regimen as needed Continue regular diet Repeat CBC and BMP Ambulation and spirometer use encouraged <[facility] Melara - Last Filed: 03/17/25 07:07> Patient is s/p Nick's procedure, POD8. Overall he's doing well. He states he is does not currently have any abdominal pain, and stopped taking his pain medication last night. Moderate tenderness to palpation is present, limited to the incision site. The incision site looks dry, clean, and intact, with no signs of infection. He states he is tolerating solid food well, and there is a moderate amount of soft, formed stool in the ostomy pouch. No abnormal heart sounds were heard on auscultation, with a regular rate and rhythm. Lungs were clear to auscultation bilaterally. He is ambulating around his room, and consistent with spirometer use. He denies any current fever, chills, chest pain, shortness of breath, nausea or vomiting. He does not have any new labs, but previous labs revealed an improving leukocytosis and mild anemia. Patient is ready for discharge. Continue pain regimen as needed Continue regular diet Ambulation and spirometer use encouraged Patient seen and examined independently, I agree with the above assesment and plan. Will plan for DC later today. Patient was started on mupirocin yesterday for impetigo surrounding lips. will DC with mupirocin. <Jacky Hoffmann PA-C - Last Filed: 03/17/25 08:24> Time Spent With Patient Time: Total time managing care of this patient today ____ minutes. <[facility] Last Filed: 03/17/25 07:07> Quality Stroke Does the patient have a stroke diagnosis?: No <[facility] Filed: 03/17/25 07:07> VTE Prior VTE?: No <[facility] Last Filed: 03/17/25 07:07> VTE Risk Level:: Surgical - moderate <[facility] Filed: 03/17/25 07:07> VTE Device Contraindication: N/A - Device Ordered <[facility] Last Filed: 03/17/25 07:07> VTE Drug Contraindication: N/A - Med Ordered <[facility] Filed: 03/17/25 07:07>
[2025-03-17 07:32] LABS: Glucose, Whole Blood 108 mg/dL (60-115)
[2025-03-17] MEDS: 0.9 % Sodium Chloride Flush 3 ML SYRINGE IVFLUSH ×2 (07:48→16:56)
[2025-03-17 08:00] VITALS: BP 134/74; PULSE 86; RESP 16; TEMP 36.9; O2SAT 96
[2025-03-17 11:18] LABS: Glucose, Whole Blood 175 mg/dL (60-115)
--- NOTE | 2025-03-17 13:03 | HO.OSTOMY ---
Ostomy Consult: Follow up teaching 50yr old male admitted [place] [facility] [place] 03[place]08[place] see H&P for detailed history and admission.? Consult for new ostomy teaching. He had an End Colostomy creation on 03/09/[address] Bejarano. Health Actuary at bedside throughout visit. Chart reviewed and arrival to beside patient notes stool and gas production continues. His sister is present for continued teaching since patient is only to have a few VNA visits given insurance coverage. He reports comfort with emptying his pouch - his pouch was assessed to be too full we discussed this and he was educated on the importance of emptying when 1/3/-1/2 full. He reports understanding and he ambulated to the bathroom with the use of a walker due to knee pain which is new. He reports provider and nurse aware - confirmed they are aware although this is new symptom. He reports increased pain to the lower incision per his statement he feels it is the dung. He is noted to have some increased erythema to the lower 1/2 of the abdomen - with some firm induration to the incision line. He was able to tolerate the pouch change but the mentioned observations were reported to the provider, CHAY Jain for general surgery. He was able to empty the pouch in the bathroom over the toilet independently with me present for stand by assist. He did not need assistance for this task. Of note his scrotum is swollen, he denies tenderness and pain just notes swelling. Per Provider Ultrasound to be ordered. With art model present along with sister we performed a stoma model pouch change. He was able to verbally walk me through a pouch change and educate his sister on the appropriate next steps. We then performed a pouch change on him since he is planned for d/c later today pending ultrasound results. His lower abdomen is noted for some diffuse pink mild erythema with some induration noted to the inferior aspect of the incision. Pouch change completed in coloplast convex pouch # [id number] cut oval 30mm x 40mm. The pouch was not leaking when removed and assessed - this appears to be a good fit in terms of pouches. He reports liking this pouch in comparison to the flat pouch and does not mind wearing the belt. Pouch change completed - all questions asked and answered. Patient has written material in Peruvian, coloplast care kit to be sent to his house, supplies for several weeks at patient bedside.
[2025-03-17 15:40] VITALS: BP 134/67; PULSE 96; RESP 18; TEMP 36.9; O2SAT 94
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
[2025-03-17 16:15] LABS: Glucose, Whole Blood 115 mg/dL (60-115)
--- NOTE | 2025-03-17 16:50 | W.MHC.F2F ---
Service Date Service Date: 03/17/25 Encounter Date of encounter: 03/17/25 Reasons for Services Signs and symptoms assessed: s/p sury new ostomy care abdominal exam midline insicion wound monitoring Reason for senior care: wound care (new ostomy) Homebound: Leaving the home is medically contraindicated at this time without the asist of a device and/or another person due th the listed conditions above and below. Reason homebound: pain with ambulation and weakness related to hospital stay Certification: Based on the above findings, I certify that this patient is confined to the home and needs intermittent senior care care, physical therapy and/or speech therapy, or continues to need occupational therapy. The patient is under my care, and I have initiated the establishment of the plan of care. The patient will be followed by a physician who will periodically review the plan of care. Time Spent With Patient Time: Total time managing care of this patient today ____ minutes.
[2025-03-17 19:12] VITALS: BP 135/71; PULSE 100; RESP 17; TEMP 36.9; O2SAT 95
[2025-03-17 20:20] LABS: Glucose, Whole Blood 155 mg/dL (60-115)
[2025-03-18] MEDS: 0.9 % Sodium Chloride Flush 3 ML SYRINGE IVFLUSH ×3 (00:30→18:06)
[2025-03-18 03:26] VITALS: BP 137/68; PULSE 93; RESP 18; TEMP 36.8; O2SAT 95
[2025-03-18 07:17] LABS: Glucose, Whole Blood 101 mg/dL (60-115)
[2025-03-18 07:41] VITALS: BP 131/62; PULSE 91; RESP 17; TEMP 36.8; O2SAT 95
[2025-03-18 09:02] LABS: Hematocrit 33.5 % (42.0-52.0); Hemoglobin 11.5 g/dl (14.0-18.0); Mean Corpuscular HGB Conc 34.3 g/dl (31.0-36.0); Mean Corpuscular Hemoglobin 29.6 pg (27.0-33.0); Mean Corpuscular Volume 86.1 fL (80.0-98.0); NRBC Abs Auto 0.000 X10*3/uL (0.0-0.012); NRBC Pct Auto 0.0 /100WBC (0.0-0.2); Platelet Count 399 X10*3/uL (160-400); Red Blood Count 3.89 X10*6/uL (4.60-5.80); White Blood Count 24.1 X10*3/uL (4.8-10.8)
--- NOTE | 2025-03-18 10:14 | PM.PNGS ---
Subjective Subjective Date of Service: 03/18/25 Interval history: patient remains admitted, we obtained a scrotal US due to scrotal edema the patient is experiencing. denies pain in the scrotum, dysuria. Patient continues to tolerate diet, passing stool and gas via stoma. Endorses mild pain at the incision site. denies fever, had one episode of chills overnight. Physical Exam Vital Signs: Vital Signs: Last Vital Signs Temp 98.3 F 03/18/25 07:41 Pulse 91 03/18/25 07:41 Resp 17 03/18/25 07:41 BP 131/62 03/18/25 07:41 Pulse Ox 95 03/18/25 07:41 O2 Del Method Room Air 03/18/25 07:41 O2 Flow Rate 2 03/10/25 07:47 BMI result Body Mass Index 34.0 Const: General: comfortable and no acute distress Orientation/consciousness: patient oriented x3 Resp: Effort & Inspection: normal respiratory effort and able to speak in complete sentences GI: Other: stoma is mildly retracted, pink, functioning appropriately. midline incision has some surrounding erythema, appears intact and clean. [place] remain in place Inspection: Yes distended (mild) Palpation (GI): Soft to palpation, not firm, Tenderness to palpation present (GI) (tender around incision), no guarding and not rigid : Scrotum: scrotal swelling (moderate) Neuro: General: patient oriented x3 Objective Data Active Medications Acetaminophen (Acetaminophen 325 Mg Tablet) 650 mg PO Q6H PRN PRN Reason: Pain, Mild 1-3,fever,headache Last Admin: 03/16/25 22:23 Dose: 650 mg Documented By: KATHARINE Amoxicillin/Clavulanate Potassium (Amoxicillin/Potassium Clav 875 Mg Tablet) 875 mg PO Q12H [facility] Last Admin: 03/18/25 05:38 Dose: 875 mg Documented By: UMANG Dextrose (Dextrose 50 % 25 Gm/50 Ml Syringe) 25 gm IVPUSH Q15M PRN; Protocol PRN Reason: per Hypoglycemia Standing Ord. Enoxaparin Sodium (Enoxaparin Sodium 40 Mg/0.4 Ml Syringe) 40 mg SUBCUT Q24H [facility] Last Admin: 03/17/25 20:27 Dose: 40 mg Documented By: UMANG Glucose (Glucose Gel 15 Gm Gel..Gram.) 15 gm PO Q15M PRN; Protocol PRN Reason: per Hypoglycemia Standing Ord. Insulin Human Lispro (Insulin Lispro 100 Unit/Ml 3 Ml Vial) 0 unit SUBCUT QIDACHS [facility]; Protocol Last Admin: 03/18/25 07:21 Dose: Not Given Documented By: YE Non-Admin Reason: No Insulin Coverage Mupirocin (Mupirocin 2 % Oint 22 Gm Tube) 1 appl TOPICAL TID [facility]; Protocol Last Admin: 03/18/25 08:21 Dose: 1 appl Documented By: YE Ondansetron HCl (Ondansetron Hcl 4 Mg/2 Ml Vial) 4 mg IVPUSH QID PRN PRN Reason: Nausea Oxycodone HCl (Oxycodone Hcl Immed Release 5 Mg Tablet) 10 mg PO Q4H PRN PRN Reason: Pain, Moderate(Pain Scale 4-6) Last Admin: 03/12/25 22:44 Dose: 10 mg Documented By: TITO Sodium Chloride (0.9 % Sodium Chloride Flush 3 Ml Syringe) [facility] Last Admin: 03/18/25 08:22 Dose: 3 ml Documented By: YE Labs 03/18/25 08:16 03/12/25 05:25 Labs: Laboratory Results - last 24 hr 03/17/25 03/17/25 03/17/25 11:14 16:12 20:14 MCV MCH MCHC RDW Plt Count MPV Absolute Nucleated RBC Nucleated RBC % (auto) POC Glucose 175 H 115 155 H 03/18/25 03/18/25 07:12 08:16 MCV 86.1 MCH 29.6 MCHC 34.3 RDW 13.5 Plt Count 399 D MPV 9.7 Absolute Nucleated RBC 0.000 Nucleated RBC % (auto) 0.0 POC Glucose 101 Procedures Date of Service Date of Service: 03/18/25 Progress Note: A&P Assessment and plan (1) Status post Sury procedure: Status: Acute Plan 54 year old male POD 9 s/p sury procedure. We were planning D/c yesterday, patient made it aware that he was having some scrotal swelling. He denies pain of the scrotum. We ordered a scrotal US which showed bilateral scrotal wall edema and moderate bilateral hydroceles. Patient was seen this morning and continues to have some erythema surrounding the incision site, remains tender to palpation. Abdominal exam is soft, there is evidence of mild distention. stoma continues to pass stool and gas. Given the changes to the incision site, we obtained a CBC, which showed a new leukocytosis 24.1. Given the nature of the sury procedure involving a dirty wound, will order a CT with oral contrast to rule out infectious process or abscess formation. Patient was made NPO for the CT, will likely resume diet after imaging. Patient remains on oral augmentin, will make changes if necessary. Patient will remain admitted, d/c orders were halted. CT results pending NPO until after CT continue oral augmentin, changes pending CT results ambulation as tolerated Time Spent With Patient Time: Total time managing care of this patient today ____ minutes. Quality Stroke Does the patient have a stroke diagnosis?: No VTE Prior VTE?: No VTE Risk Level:: Surgical - moderate VTE Device Contraindication: N/A - Device Ordered VTE Drug Contraindication: N/A - Med Ordered
[2025-03-18 11:26] LABS: Glucose, Whole Blood 97 mg/dL (60-115)
[2025-03-18 15:35] VITALS: BP 129/72; PULSE 100; RESP 18; TEMP 37.2; O2SAT 95
--- NOTE | 2025-03-18 16:09 | HO.OSTOMY ---
Ostomy Consult: Follow up teaching 50yr old male admitted to [facility] on 03/08/25 see H&P for detailed history and admission.? Consult follow up for new ostomy teaching. He had an End Colostomy creation on 03/09/[address] Bejarano. Patient was set for d/c but delayed due to scrotal swelling and increase in WBC and erythema to lower abdomen. Arrival to bedside patient reports he is feeling well no c/o other than pain to the lower abdomen that he reports feels different than prior days. He is swartz he is planned for a CT scan to look for areas related to increased WBC and fluid collection. The abdomen was assessed - pouch is intact and no leaking noted - the midline remains with dung and is [employer] no oozing drainage noted - remains well approximated. [place] erythema remains and is unchanged since yesterday. He reports he is continue to empty his own pouch independently and has no questions or concerns at this time.
[2025-03-18 16:13] LABS: Glucose, Whole Blood 131 mg/dL (60-115)
[2025-03-18] MEDS: oxyCODONE HCl Immed Release 5 MG TABLET 10 MG PO (16:29)
[2025-03-18 19:10] VITALS: BP 123/75; PULSE 99; RESP 18; TEMP 37.2; O2SAT 99
[2025-03-18 19:24] LABS: Glucose, Whole Blood 161 mg/dL (60-115)
[2025-03-18] MEDS: iohexoL 350 MG/ML 100 ML INFUS..BTL 85 ML IV (21:37)
[2025-03-19] MEDS: 0.9 % Sodium Chloride Flush 3 ML SYRINGE IVFLUSH ×4 (02:39→19:46)
[2025-03-19 03:17] VITALS: BP 144/70; PULSE 97; RESP 16; TEMP 36.6; O2SAT 93
--- NOTE | 2025-03-19 06:18 | PC.NURSE ---
MIDLINE incision is oozing milky, pink and yellowish drainage large amount . Spoke with Lynn billingsley/korina CT of the abdomen which was scheduled last evening and oozing from the incision . pt is stable no fevers overnight . Changed bulky gauze dsg x4 times very saturated.
[2025-03-19 06:21] LABS: Hematocrit 33.2 % (42.0-52.0); Hemoglobin 11.2 g/dl (14.0-18.0); Imm Gran Abs Auto 0.17 X10*3/uL (0.00-0.03); Imm Gran Pct Auto 0.8 % (0.0-0.4); Lymphocytes Absolute Auto 1.3 X10*3/uL (1.2-4.9); MANUAL DIFF FLAG SCAN; Mean Corpuscular HGB Conc 33.7 g/dl (31.0-36.0); Mean Corpuscular Hemoglobin 29.3 pg (27.0-33.0); Mean Corpuscular Volume 86.9 fL (80.0-98.0); NRBC Abs Auto 0.000 X10*3/uL (0.0-0.012); NRBC Pct Auto 0.0 /100WBC (0.0-0.2); Platelet Count 435 X10*3/uL (160-400); Red Blood Count 3.82 X10*6/uL (4.60-5.80); SCAN SMEAR FLAG 1; White Blood Count 22.1 X10*3/uL (4.8-10.8)
[2025-03-19] MEDS: oxyCODONE HCl Immed Release 5 MG TABLET 10 MG PO ×4 (07:01→23:33)
[2025-03-19 07:30] LABS: Glucose, Whole Blood 91 mg/dL (60-115)
[2025-03-19 07:36] VITALS: BP 133/71; PULSE 87; RESP 16; TEMP 36.4; O2SAT 97
[2025-03-19 11:35] LABS: Glucose, Whole Blood 79 mg/dL (60-115)
--- NOTE | 2025-03-19 11:35 | PM.PNGS ---
Subjective Subjective Date of Service: 03/19/25 <Jacky Hoffmann PA-C - Last Filed: 03/19/25 13:49> 03/19/25 <Teodoro Bejarano MD - Last Filed: 03/19/25 16:04> Interval history: patient began spontaneously draining moderate volume of malodorous purulent drainage via midline incision overnight. Requiring multiple dressing changes. patient reports that the pain he was experiencing yesterday at the incision site with ambulation improved when the drainage started. He currently feels mild abdominal pain at this time. denies fever of chills. patient had CT showing fluid collection in the abdominal wall. stoma output stool and gas. <Jacky Hoffmann PA-C - Last Filed: 03/19/25 13:49> Physical Exam Vital Signs: Vital Signs: Last Vital Signs Temp 97.5 F 03/19/25 07:36 Pulse 87 03/19/25 07:36 Resp 16 03/19/25 07:36 BP 133/71 03/19/25 07:36 Pulse Ox 97 03/19/25 07:36 O2 Del Method Room Air 03/19/25 07:36 O2 Flow Rate 2 03/10/25 07:47 BMI result Body Mass Index 34.0 <Jacky Hoffmann PA-C - Last Filed: 03/19/25 13:49> Const: General: comfortable and no acute distress <JUSTINO Jain Last Filed: 03/19/25 13:49> Orientation/consciousness: patient oriented x3 <Jacky Hoffmann PA-C - Last Filed: 03/19/25 13:49> Resp: Effort & Inspection: normal respiratory effort and able to speak in complete sentences <Jacky Hoffmann PA-C - Last Filed: 03/19/25 13:49> GI: Other: ostomy in place, functioning appropriately. midline incison dung in place, draining malodorous purulent serosanguineous fluid. Tender to palpation. erythema surrounding incision. <JUSTINO Jain Last Filed: 03/19/25 13:49> Inspection: No distended <JUSTINO Jain Last Filed: 03/19/25 13:49> Palpation (GI): Soft to palpation, not firm, Tenderness to palpation present (GI) (incision site), no guarding and not rigid <Jacky Hoffmann PA-C - Last Filed: 03/19/25 13:49> Neuro: General: patient oriented x3 <Jacky Hoffmann PA-C - Last Filed: 03/19/25 13:49> Objective Data Active Medications Acetaminophen (Acetaminophen 325 Mg Tablet) 650 mg PO Q6H PRN PRN Reason: Pain, Mild 1-3,fever,headache Last Admin: 03/16/25 22:23 Dose: 650 mg Documented By: KATHARINE Amoxicillin/Clavulanate Potassium (Amoxicillin/Potassium Clav 875 Mg Tablet) 875 mg PO Q12H [facility] Last Admin: 03/19/25 05:35 Dose: 875 mg Documented By: UMANG Dextrose (Dextrose 50 % 25 Gm/50 Ml Syringe) 25 gm IVPUSH Q15M PRN; Protocol PRN Reason: per Hypoglycemia Standing Ord. Enoxaparin Sodium (Enoxaparin Sodium 40 Mg/0.4 Ml Syringe) 40 mg SUBCUT Q24H [facility] Last Admin: 03/18/25 19:23 Dose: 40 mg Documented By: UMANG Glucose (Glucose Gel 15 Gm Gel..Gram.) 15 gm PO Q15M PRN; Protocol PRN Reason: per Hypoglycemia Standing Ord. Insulin Human Lispro (Insulin Lispro 100 Unit/Ml 3 Ml Vial) 0 unit SUBCUT QIDACHS [facility]; Protocol Last Admin: 03/19/25 07:20 Dose: Not Given Documented By: MICHELLE Non-Admin Reason: No Insulin Coverage Mupirocin (Mupirocin 2 % Oint 22 Gm Tube) 1 appl TOPICAL TID [facility]; Protocol Last Admin: 03/19/25 07:01 Dose: 1 appl Documented By: MICHELLE Ondansetron HCl (Ondansetron Hcl 4 Mg/2 Ml Vial) 4 mg IVPUSH QID PRN PRN Reason: Nausea Oxycodone HCl (Oxycodone Hcl Immed Release 5 Mg Tablet) 10 mg PO Q4H PRN PRN Reason: Pain, Moderate(Pain Scale 4-6) Last Admin: 03/19/25 10:57 Dose: 10 mg Documented By: MICHELLE Sodium Chloride (0.9 % Sodium Chloride Flush 3 Ml Syringe) 3 ml IVFLUSH QSHIFT [facility] Last Admin: 03/19/25 07:01 Dose: 3 ml Documented By: MICHELLE <Jacky Hoffmann PA-C - Last Filed: 03/19/25 13:49> Labs CBC & Chem 7: 03/19/25 05:20 03/12/25 05:25 <Jacky Hoffmann PA-C - Last Filed: 03/19/25 13:49> Labs: Laboratory Results - last 24 hr 03/18/25 03/18/25 03/19/25 16:09 19:13 05:20 MCV 86.9 MCH 29.3 MCHC 33.7 RDW 13.5 Plt Count 435 H MPV 10.1 Immature Gran % (Auto) 0.8 H Neut % (Auto) 85.3 H Lymph % (Auto) 5.9 L Gray % (Auto) 6.9 Eos % (Auto) 0.7 Baso % (Auto) 0.4 Lymph # (Auto) 1.3 Gray # (Auto) 1.5 H Eos # (Auto) 0.2 Baso # (Auto) 0.1 Abs Immat Gran (auto) 0.17 H Absolute Neuts (auto) 18.9 H Absolute Nucleated RBC 0.000 Nucleated RBC % (auto) 0.0 Smear Tech's Comments VERIFIED Hold Purple Top SEE NOTE POC Glucose 131 H 161 H 03/19/25 07:10 MCV MCH MCHC RDW Plt Count MPV Immature Gran % (Auto) Neut % (Auto) Lymph % (Auto) Gray % (Auto) Eos % (Auto) Baso % (Auto) Lymph # (Auto) Gray # (Auto) Eos # (Auto) Baso # (Auto) Abs Immat Gran (auto) Absolute Neuts (auto) Absolute Nucleated RBC Nucleated RBC % (auto) Smear Tech's Comments Hold Purple Top POC Glucose 91 <Jacky Hoffmann PA-C - Last Filed: 03/19/25 13:49> Microbiology Microbiology Results: Microbiology 03/19/25 07:30 Gram Stain - Final Incision <Jacky Hoffmann PA-C - Last Filed: 03/19/25 13:49> Procedures Date of Service Date of Service: 03/19/25 <Jacky Hoffmann PA-C - Last Filed: 03/19/25 13:49> 03/19/25 <Teodoro Bejarano MD - Last Filed: 03/19/25 16:04> Progress Note: A&P Assessment and plan (1) Status post Sury procedure: Status: Acute <Jacky Hoffmann PA-C - Last Filed: 03/19/25 13:49> (2) Abdominal wall fluid collections: Status: Acute <Jacky Hoffmann PA-C - Last Filed: 03/19/25 13:49> Assessment and Plan: 54 year old male POD 10 s/p sury procedure for sigmoid diverticulitis with perforation. Patient was found to have an abdominal wall fluid collection on repeat CT yesterday, no evidence of oral contrast in the abdominal wall. The collection began spontaneously draining overnight, malodorous purulent fluid requirinig multiple dressing changes. Patient had relief from pain after it began draining. continues to have mild pain at the incision site, upon palpation of the incision, it was tender and drained purulent serosanguineous fluid. Two dung were removed to promote further drainage. Moderate volume was able to be expressed. Culture was obtained. the incision was probed with a q tip to facilitate further drainage. The collection tracked about 5 cm inferiorly. Peritoneum appeared to be intact during this. The wound was packed with 1/4 inch packing in the two areas where the dung were removed. patient tolerated this well. the wound was dressed with gauze and abd pad. His abdominal exam is otherwise soft and benign. Ostomy continues to have appropriate output. Will resume diet continue daily local wound care. dressing changes as needed, at least q shift culture pending continue augmentin until culture results. <Jacky Hoffmann PA-C - Last Filed: 03/19/25 13:49> 54 year old male POD 10 s/p sury procedure for sigmoid diverticulitis with perforation. Patient was found to have an abdominal wall fluid collection on repeat CT yesterday, no evidence of oral contrast in the abdominal wall. The collection began spontaneously draining overnight, malodorous purulent fluid requirinig multiple dressing changes. Patient had relief from pain after it began draining. continues to have mild pain at the incision site, upon palpation of the incision, it was tender and drained purulent serosanguineous fluid. Two dung were removed to promote further drainage. Moderate volume was able to be expressed. Culture was obtained. the incision was probed with a q tip to facilitate further drainage. The collection tracked about 5 cm inferiorly. Peritoneum appeared to be intact during this. The wound was packed with 1/4 inch packing in the two areas where the dung were removed. patient tolerated this well. the wound was dressed with gauze and abd pad. His abdominal exam is otherwise soft and benign. Ostomy continues to have appropriate output. Will resume diet continue daily local wound care. dressing changes as needed, at least q shift culture pending continue augmentin until culture results. Patient seen and examined, CT reviewed. Agree with the above assessment. Patient feels improved after drainage of fluid collection. Await cultures. <Teodoro Bejarano MD - Last Filed: 03/19/25 16:04> Time Spent With Patient Time: Total time managing care of this patient today ____ minutes. <Jacky Hoffmann PA-C - Last Filed: 03/19/25 13:49> Quality Stroke Does the patient have a stroke diagnosis?: No <Jacky Hoffmann PA-C - Last Filed: 03/19/25 13:49> VTE Prior VTE?: No <Jacky Hoffmann PA-C - Last Filed: 03/19/25 13:49> VTE Risk Level:: Surgical - moderate <Jacky Hoffmann PA-C - Last Filed: 03/19/25 13:49> VTE Device Contraindication: N/A - Device Ordered <Jacky Hoffmann PA-C - Last Filed: 03/19/25 13:49> VTE Drug Contraindication: N/A - Med Ordered <Jacky Hoffmann PA-C - Last Filed: 03/19/25 13:49>
[2025-03-19 15:01] VITALS: BP 135/76; PULSE 91; RESP 18; TEMP 36.6; O2SAT 96
--- NOTE | 2025-03-19 15:03 | MHC.CM.PN ---
PER MD PN, PT IS NOT MEDICALLY CLEARED, CULTURES PENDING. CURRENTLY, DRESSINGS ARE BEING CHANGED PRN WITH A MINIMUM OF ONCE PER SHIFT PT DOES NOT HAVE A [facility] BENEFIT, DRESSINGS WILL NEED TO BE TAUGHT TO PT AND FAMILY PT WILL NEED DRESSING AND OSTOMY SUPPLIES AT [facility]
[2025-03-19 16:09] LABS: Glucose, Whole Blood 126 mg/dL (60-115)
[2025-03-19 19:24] VITALS: BP 118/75; PULSE 97; RESP 18; TEMP 36.9; O2SAT 98
[2025-03-19 19:31] LABS: Glucose, Whole Blood 158 mg/dL (60-115)
--- NOTE | 2025-03-20 06:14 | PC.NURSE ---
pt found this AM with dsg to abd saturated with brown foul smelling drainage. site cleaned - note; as site is getting cleaned, the surgical site with dung noted with continuous oozing of foul smelling drainage. site cleaned and new 4x4 and abd pad applied.
[2025-03-20 06:15] LABS: Hematocrit 32.7 % (42.0-52.0); Hemoglobin 11.0 g/dl (14.0-18.0); Mean Corpuscular HGB Conc 33.6 g/dl (31.0-36.0); Mean Corpuscular Hemoglobin 29.1 pg (27.0-33.0); Mean Corpuscular Volume 86.5 fL (80.0-98.0); NRBC Abs Auto 0.000 X10*3/uL (0.0-0.012); NRBC Pct Auto 0.0 /100WBC (0.0-0.2); Platelet Count 465 X10*3/uL (160-400); Red Blood Count 3.78 X10*6/uL (4.60-5.80); White Blood Count 12.0 X10*3/uL (4.8-10.8)
[2025-03-20 07:37] LABS: Glucose, Whole Blood 98 mg/dL (60-115)
[2025-03-20 07:54] VITALS: BP 137/73; PULSE 72; RESP 18; TEMP 36.9; O2SAT 97
[2025-03-20] MEDS: 0.9 % Sodium Chloride Flush 3 ML SYRINGE IVFLUSH ×3 (10:36→21:21)
[2025-03-20 11:14] LABS: Glucose, Whole Blood 176 mg/dL (60-115)
--- NOTE | 2025-03-20 13:54 | P.PNGS_ITS ---
Subjective Subjective Date of Service: 03/20/25 Interval history: Patient complaining of drainage from the midline incision where it was opened yesterday. Foul smelling material coming through. Ostomy working well no fevers or chills. Tolerating p.o. diet with output through the ostomy Physical Exam 2 Vital Signs: Vital Signs: Last Vital Signs Temp 98.5 F 03/20/25 07:54 Pulse 72 03/20/25 07:54 Resp 18 03/20/25 07:54 BP 137/73 03/20/25 07:54 Pulse Ox 97 03/20/25 07:54 O2 Del Method Room Air 03/20/25 07:54 O2 Flow Rate 2 03/10/25 07:47 BMI result Body Mass Index 34.0 Const: General: cooperative and healthy appearing HEENT: Head: Yes normal to inspection Resp: Effort & Inspection: normal respiratory effort Auscultation: clear to auscultation bilaterally Cardio: Rate: regular rate Rhythm: regular rhythm GI: Other: Abdomen is soft ostomy bag with stool and gas. Midline incision with dark foul smelling thick material coming from midline incision. No peritoneal signs. The area here was probed and there is a deep pocket with infected material coming through. This area was irrigated and pressure placed to drain out as much of this infected liquid as possible. The midline opening was opened up a little bit more after removing some dung. The area does probe deep but not convinced that probes into the peritoneal cavity we Objective Data Active Medications Acetaminophen (Acetaminophen 325 Mg Tablet) 650 mg PO Q6H PRN PRN Reason: Pain, Mild 1-3,fever,headache Last Admin: 03/16/25 22:23 Dose: 650 mg Documented By: KATHARINE Amoxicillin/Clavulanate Potassium (Amoxicillin/Potassium Clav 875 Mg Tablet) 875 mg PO Q12H [facility] Last Admin: 03/20/25 06:02 Dose: 875 mg Documented By: KAREN Dextrose (Dextrose 50 % 25 Gm/50 Ml Syringe) 25 gm IVPUSH Q15M PRN; Protocol PRN Reason: per Hypoglycemia Standing Ord. Enoxaparin Sodium (Enoxaparin Sodium 40 Mg/0.4 Ml Syringe) 40 mg SUBCUT Q24H [facility] Last Admin: 03/19/25 19:45 Dose: 40 mg Documented By: KAREN Glucose (Glucose Gel 15 Gm Gel..Gram.) 15 gm PO Q15M PRN; Protocol PRN Reason: per Hypoglycemia Standing Ord. Insulin Human Lispro (Insulin Lispro 100 Unit/Ml 3 Ml Vial) 0 unit SUBCUT QIDACHS [facility]; Protocol Last Admin: 03/20/25 12:24 Dose: 2 unit Documented By: SANA Mupirocin (Mupirocin 2 % Oint 22 Gm Tube) 1 appl TOPICAL TID [facility]; Protocol Last Admin: 03/20/25 08:58 Dose: 1 appl Documented By: SANA Ondansetron HCl (Ondansetron Hcl 4 Mg/2 Ml Vial) 4 mg IVPUSH QID PRN PRN Reason: Nausea Oxycodone HCl (Oxycodone Hcl Immed Release 5 Mg Tablet) 10 mg PO Q4H PRN PRN Reason: Pain, Moderate(Pain Scale 4-6) Last Admin: 03/19/25 23:33 Dose: 10 mg Documented By: KAREN Comments: 7/10 pain, given per pt request Sodium Chloride (0.9 % Sodium Chloride Flush 3 Ml Syringe) [facility] Last Admin: 03/20/25 10:36 Dose: 3 ml Documented By: SANA Labs 03/20/25 05:46 03/20/25 15:56 Labs: Laboratory Results - last 24 hr 03/19/25 03/19/25 03/20/25 16:05 19:27 05:46 MCV 86.5 MCH 29.1 MCHC 33.6 RDW 13.4 Plt Count 465 H MPV 9.6 Absolute Nucleated RBC 0.000 Nucleated RBC % (auto) 0.0 POC Glucose 126 H 158 H 03/20/25 03/20/25 07:34 11:11 MCV MCH MCHC RDW Plt Count MPV Absolute Nucleated RBC Nucleated RBC % (auto) POC Glucose 98 176 H Microbiology Microbiology Results: Microbiology 03/19/25 07:30 Gram Stain - Final Incision Routine Culture - Preliminary Gram negative [facility] Anaerobic Culture - Preliminary Culture in progress. Procedures Date of Service Date of Service: 03/20/25 Progress Note: A&P Assessment and plan (1) Status post Nick procedure: Status: Acute Plan Patient is a 54-year-old male status post sigmoid resection for perforated diverticulosis and end-colostomy. Now with subcutaneous infection. Area opened up irrigated and drained and packed. Plan to do dressings twice a day and change from p.o. Augmentin back to IV Zosyn and follow up on cultures. G negatives grown on Gram stain. Patient can continue diet p.o. pain meds Time Spent With Patient Time: Total time managing care of this patient today ____ minutes. Quality Stroke Does the patient have a stroke diagnosis?: No VTE Prior VTE?: No VTE Risk Level:: Surgical - moderate VTE Device Contraindication: N/A - Device Ordered VTE Drug Contraindication: N/A - Med Ordered
[2025-03-20 15:08] VITALS: BP 133/71; PULSE 79; RESP 18; TEMP 36.6; O2SAT 97
[2025-03-20 16:12] LABS: Glucose, Whole Blood 121 mg/dL (60-115)
[2025-03-20 16:21] LABS: Creatinine Clr Calc Pharmacy 152.6; Estimated Glomerular Filt Rate > 60
[2025-03-20 19:13] VITALS: BP 131/68; PULSE 80; RESP 18; TEMP 36.7; O2SAT 95
[2025-03-20 20:52] LABS: Glucose, Whole Blood 110 mg/dL (60-115)
[2025-03-20] MEDS: oxyCODONE HCl Immed Release 5 MG TABLET 10 MG PO (21:19)
[2025-03-21 03:15] VITALS: BP 124/67; PULSE 74; RESP 16; TEMP 36.1; O2SAT 97
[2025-03-21 05:44] LABS: MANUAL DIFF FLAG NO
[2025-03-21 05:50] LABS: Hematocrit 31.8 % (42.0-52.0); Hemoglobin 10.7 g/dl (14.0-18.0); Imm Gran Abs Auto 0.10 X10*3/uL (0.00-0.03); Imm Gran Pct Auto 1.0 % (0.0-0.4); Lymphocytes Absolute Auto 1.3 X10*3/uL (1.2-4.9); Mean Corpuscular HGB Conc 33.6 g/dl (31.0-36.0); Mean Corpuscular Hemoglobin 28.8 pg (27.0-33.0); Mean Corpuscular Volume 85.5 fL (80.0-98.0); NRBC Abs Auto 0.000 X10*3/uL (0.0-0.012); NRBC Pct Auto 0.0 /100WBC (0.0-0.2); Platelet Count 495 X10*3/uL (160-400); Red Blood Count 3.72 X10*6/uL (4.60-5.80); White Blood Count 9.6 X10*3/uL (4.8-10.8)
[2025-03-21 07:20] VITALS: BP 132/80; PULSE 80; RESP 16; TEMP 36.8; O2SAT 94
[2025-03-21 07:26] LABS: Glucose, Whole Blood 102 mg/dL (60-115)
[2025-03-21] MEDS: 0.9 % Sodium Chloride Flush 3 ML SYRINGE IVFLUSH ×3 (09:41→22:11)
[2025-03-21 11:48] LABS: Glucose, Whole Blood 122 mg/dL (60-115)
--- NOTE | 2025-03-21 12:29 | P.PNGS_ITS ---
Subjective Subjective Date of Service: 03/21/25 Interval history: Patient is still complaining of significant drainage from the incision Physical Exam 2 Vital Signs: Vital Signs: Last Vital Signs Temp 98.3 F 03/21/25 07:20 Pulse 80 03/21/25 07:20 Resp 16 03/21/25 07:20 BP 132/80 03/21/25 07:20 Pulse Ox 94 03/21/25 07:20 O2 Del Method Room Air 03/21/25 07:20 O2 Flow Rate 2 03/10/25 07:47 BMI result Body Mass Index 34.0 Const: General: cooperative, healthy appearing and comfortable GI: Other: Abdomen is soft nontender nondistended ostomy is working. There is very foul smelling stool like material coming from the midline incision but the foul- smelling material looks different than the stool from his ostomy bag. Objective Data Active Medications Acetaminophen (Acetaminophen 325 Mg Tablet) 650 mg PO Q6H PRN PRN Reason: Pain, Mild 1-3,fever,headache Last Admin: 03/16/25 22:23 Dose: 650 mg Documented By: KATHARINE Dextrose (Dextrose 50 % 25 Gm/50 Ml Syringe) 25 gm IVPUSH Q15M PRN; Protocol PRN Reason: per Hypoglycemia Standing Ord. Enoxaparin Sodium (Enoxaparin Sodium 40 Mg/0.4 Ml Syringe) 40 mg SUBCUT Q24H [facility] Last Admin: 03/20/25 20:26 Dose: 40 mg Documented By: ITALO Glucose (Glucose Gel 15 Gm Gel..Gram.) 15 gm PO Q15M PRN; Protocol PRN Reason: per Hypoglycemia Standing Ord. Piperacillin Sod/Tazobactam (Sod 3.375 gm/ Sodium Chloride) 50 mls @ 100 mls/hr IV Q6H [facility] Last Infusion: 03/21/25 10:12 Dose: Infused Documented By: SANA Insulin Human Lispro (Insulin Lispro 100 Unit/Ml 3 Ml Vial) 0 unit SUBCUT QIDACHS [facility]; Protocol Last Admin: 03/21/25 11:54 Dose: Not Given Documented By: SANA Non-Admin Reason: No Insulin Coverage Mupirocin (Mupirocin 2 % Oint 22 Gm Tube) 1 appl TOPICAL TID [facility]; Protocol Last Admin: 03/21/25 09:42 Dose: 1 appl Documented By: SANA Ondansetron HCl (Ondansetron Hcl 4 Mg/2 Ml Vial) 4 mg IVPUSH QID PRN PRN Reason: Nausea Oxycodone HCl (Oxycodone Hcl Immed Release 5 Mg Tablet) 10 mg PO Q4H PRN PRN Reason: Pain, Moderate(Pain Scale 4-6) Last Admin: 03/20/25 21:19 Dose: 10 mg Documented By: ITALO Sodium Chloride (0.9 % Sodium Chloride Flush 3 Ml Syringe) 3 ml IVFLUSH QSHIFT [facility] Last Admin: 03/21/25 09:41 Dose: 3 ml Documented By: SANA Sodium Hypochlorite (Sodium Hypochlorite 0.125% 473 Ml Solution) 1 appl TOPICAL DAILY [facility] Last Admin: 03/21/25 09:43 Dose: Not Given Documented By: SANA Non-Admin Reason: MD will come later for dsg change Labs 03/21/25 05:13 03/20/25 15:56 Labs: Laboratory Results - last 24 hr 03/20/25 03/20/25 03/20/25 15:56 16:08 20:43 MCV MCH MCHC RDW Plt Count MPV Immature Gran % (Auto) Neut % (Auto) Lymph % (Auto) [place] % (Auto) Eos % (Auto) Baso % (Auto) Lymph # (Auto) [place] # (Auto) Eos # (Auto) Baso # (Auto) Abs Immat Gran (auto) Absolute Neuts (auto) Absolute Nucleated RBC Nucleated RBC % (auto) Estim Creat Clear Calc 152.6 Estimated GFR > 60 POC Glucose 121 H 110 03/21/25 03/21/25 03/21/25 05:13 07:22 11:41 MCV 85.5 MCH 28.8 MCHC 33.6 RDW 13.2 Plt Count 495 H MPV 9.6 Immature Gran % (Auto) 1.0 H Neut % (Auto) 70.2 Lymph % (Auto) 13.4 L [place] % (Auto) 11.8 H Eos % (Auto) 2.9 Baso % (Auto) 0.7 Lymph # (Auto) 1.3 [place] # (Auto) 1.1 Eos # (Auto) 0.3 Baso # (Auto) 0.1 Abs Immat Gran (auto) 0.10 H Absolute Neuts (auto) 6.7 Absolute Nucleated RBC 0.000 Nucleated RBC % (auto) 0.0 Estim Creat Clear Calc Estimated GFR POC Glucose 102 122 H Microbiology Microbiology Results: Microbiology 03/19/25 07:30 Gram Stain - Final Incision Routine Culture - Preliminary Escherichia coli Gram negative [facility] Anaerobic Culture - Preliminary Culture in progress. Procedures Date of Service Date of Service: 03/21/25 Progress Note: A&P Assessment and plan (1) Status post Nick procedure: Status: Acute Assessment and Plan: Patient is still having significant drainage from the midline incision yesterday was irrigated out to just clear fluid coming back but now it is still this fuller- brown very foul like stool smelling. The some worse dung were taken down in the wound opened up and digitally the area superiorly was dissected out and irrigated significantly and packed. CT scan reviewed again and there does not appear to be a intra-abdominal source and the patient is clinically doing better with his white count decreased and afebrile. We will continue doing dressing changes now with Dakin solution 3 times a day. If worsens then may need to open up the incision more but would prefer not to do this to in order to maintain the integrity of the colostomy. He understands and agrees with the above plan Time Spent With Patient Time: Total time managing care of this patient today ____ minutes. Quality Stroke Does the patient have a stroke diagnosis?: No VTE Prior VTE?: No VTE Risk Level:: Surgical - moderate VTE Device Contraindication: N/A - Device Ordered VTE Drug Contraindication: N/A - Med Ordered
--- NOTE | 2025-03-21 13:22 | PC.NURSE ---
Pt s/p exp lap w colostomy, midline incision with dung. Dressing saturated. MD Luis came to bedside this AM, cleaned + packed wound. New ABD dressing applied.
[2025-03-21 15:25] VITALS: BP 134/75; PULSE 79; RESP 18; TEMP 37.1; O2SAT 96
[2025-03-21 16:15] LABS: Glucose, Whole Blood 127 mg/dL (60-115)
[2025-03-21 19:20] VITALS: BP 131/69; PULSE 84; RESP 18; TEMP 36.7; O2SAT 97
[2025-03-21 20:31] LABS: Glucose, Whole Blood 136 mg/dL (60-115)
[2025-03-21] MEDS: oxyCODONE HCl Immed Release 5 MG TABLET 10 MG PO (21:58)
[2025-03-22 03:18] VITALS: BP 139/84; PULSE 66; RESP 17; TEMP 36.3; O2SAT 96
[2025-03-22] MEDS: oxyCODONE HCl Immed Release 5 MG TABLET 10 MG PO ×2 (06:18→22:24)
[2025-03-22 06:49] VITALS: BP 145/75; PULSE 75; RESP 17; TEMP 36.6; O2SAT 96
[2025-03-22 07:07] LABS: Glucose, Whole Blood 102 mg/dL (60-115)
--- NOTE | 2025-03-22 08:10 | P.PNGS_ITS ---
Subjective Subjective Date of Service: 03/22/25 Interval history: He feels somewhat improved this morning, able to get out of bed is here after having incision opened. Physical Exam 2 Vital Signs: Vital Signs: Last Vital Signs Temp 98 F 03/22/25 06:49 Pulse 75 03/22/25 06:49 Resp 17 03/22/25 06:49 BP 145/75 H 03/22/25 06:49 Pulse Ox 96 03/22/25 06:49 O2 Del Method Room Air 03/22/25 06:49 O2 Flow Rate 2 03/10/25 07:47 BMI result Body Mass Index 34.0 Const: General: no acute distress Nutritional Appearance: well nourished Orientation/consciousness: patient oriented x3 Resp: Effort & Inspection: normal respiratory effort GI: Other: Dressings changed to midline incision, wound repacked with Dakin solution wet-to-dry. The patient tolerated dressing change well. Still with some foul- smelling discharge with a pocket inferior to incision. Pocket repacked with fluff gauze. Inspection: Yes normal to inspection Palpation (GI): Soft to palpation Neuro: General: patient oriented x3 Extrem: Other: No edema Objective Data Active Medications Acetaminophen (Acetaminophen 325 Mg Tablet) 650 mg PO Q6H PRN PRN Reason: Pain, Mild 1-3,fever,headache Last Admin: 03/16/25 22:23 Dose: 650 mg Documented By: KATHARINE Dextrose (Dextrose 50 % 25 Gm/50 Ml Syringe) 25 gm IVPUSH Q15M PRN; Protocol PRN Reason: per Hypoglycemia Standing Ord. Enoxaparin Sodium (Enoxaparin Sodium 40 Mg/0.4 Ml Syringe) 40 mg SUBCUT Q24H [facility] Last Admin: 03/21/25 19:59 Dose: 40 mg Documented By: CRISTEL Glucose (Glucose Gel 15 Gm Gel..Gram.) 15 gm PO Q15M PRN; Protocol PRN Reason: per Hypoglycemia Standing Ord. Piperacillin Sod/Tazobactam (Sod 3.375 gm/ Sodium Chloride) 50 mls @ 100 mls/hr IV Q6H [facility] Last Infusion: 03/22/25 04:30 Dose: Infused Documented By: CRISTEL Insulin Human Lispro (Insulin Lispro 100 Unit/Ml 3 Ml Vial) 0 unit SUBCUT QIDACHS [facility]; Protocol Last Admin: 03/22/25 07:12 Dose: Not Given Documented By: YE Non-Admin Reason: No Insulin Coverage Mupirocin (Mupirocin 2 % Oint 22 Gm Tube) 1 appl TOPICAL TID [facility]; Protocol Last Admin: 03/21/25 20:00 Dose: 1 appl Documented By: CRISTEL Ondansetron HCl (Ondansetron Hcl 4 Mg/2 Ml Vial) 4 mg IVPUSH QID PRN PRN Reason: Nausea Oxycodone HCl (Oxycodone Hcl Immed Release 5 Mg Tablet) 10 mg PO Q4H PRN PRN Reason: Pain, Moderate(Pain Scale 4-6) Last Admin: 03/22/25 06:18 Dose: 10 mg Documented By: MICHELLE Sodium Chloride (0.9 % Sodium Chloride Flush 3 Ml Syringe) 3 ml IVFLUSH QSHIFT [facility] Last Admin: 03/21/25 22:11 Dose: 3 ml Documented By: CRISTEL Sodium Hypochlorite (Sodium Hypochlorite 0.125% 473 Ml Solution) 1 appl TOPICAL DAILY [facility] Last Admin: 03/21/25 09:43 Dose: Not Given Documented By: SANA Non-Admin Reason: MD will come later for dsg change Labs 03/21/25 05:13 03/20/25 15:56 Labs: Laboratory Results - last 24 hr 03/21/25 03/21/25 03/21/25 11:41 16:12 20:28 POC Glucose 122 H 127 H 136 H 03/22/25 07:04 POC Glucose 102 Microbiology Microbiology Results: Microbiology 03/19/25 07:30 Gram Stain - Final Incision Routine Culture - Final Escherichia coli Escherichia coli#2 Anaerobic Culture - Preliminary Culture in progress. Procedures Date of Service Date of Service: 03/22/25 Progress Note: A&P Assessment and plan (1) Perforation of sigmoid colon due to diverticulitis: Status: Acute (2) Status post Nick procedure: Status: Acute Plan 54-year-old male patient status post Nick procedure with postop subcutaneous abscess now open and draining with Dakin solution. Continue local wound care and IV antibiotics. Patient encouraged to ambulate. Ostomy is functioning well and he is tolerating regular diet. We will continue to monitor on IV antibiotics and local wound care. Time Spent With Patient Time: Total time managing care of this patient today ____ minutes. Quality Stroke Does the patient have a stroke diagnosis?: No VTE Prior VTE?: No VTE Risk Level:: Surgical - moderate VTE Device Contraindication: N/A - Device Ordered VTE Drug Contraindication: N/A - Med Ordered
[2025-03-22] MEDS: 0.9 % Sodium Chloride Flush 3 ML SYRINGE IVFLUSH ×3 (09:10→21:13)
[2025-03-22 11:07] LABS: Glucose, Whole Blood 125 mg/dL (60-115)
--- NOTE | 2025-03-22 15:08 | MHC.CM.PN ---
EMR REVIEWED. PT IS NOT YET MEDICALLY CLEARED FOR DC (IV ABT, CLOSE MONITORING OF INCISION) CM WILL CONTINUE TO FOLLOW FOR ANY CHANGE TO DC PLAN/NEEDS.
[2025-03-22 15:10] VITALS: BP 120/77; PULSE 82; RESP 16; TEMP 36.6; O2SAT 98
--- NOTE | 2025-03-22 15:57 | HO.OSTOMY ---
Ostomy Consult: Follow up teaching 54yr old male admitted to [facility] on 03/08/25 see H&P for detailed history and admission.? Consult follow up for new ostomy teaching. He had an End Colostomy creation on 03/09/[address] Bejarano. Patient was set for d/c last week but was delayed due to surgical incision dehiscence - treated and packed per surgery team with Andrew. Arrival to bedside patient reports he is feeling well and improved since drainage started. His pouch was assessed and no leak noted - we agreed to change pouch tomorrow which will be 5 days. Will follow up tomorrow for pouch change.
[2025-03-22 16:16] LABS: Glucose, Whole Blood 135 mg/dL (60-115)
[2025-03-22 19:16] VITALS: BP 135/62; PULSE 81; RESP 17; TEMP 36.8; O2SAT 96
[2025-03-22 20:04] LABS: Glucose, Whole Blood 138 mg/dL (60-115)
[2025-03-23 03:19] VITALS: BP 131/75; PULSE 71; RESP 18; TEMP 37.2; O2SAT 95
[2025-03-23 07:06] LABS: Glucose, Whole Blood 91 mg/dL (60-115)
[2025-03-23 07:19] VITALS: BP 130/71; PULSE 75; RESP 18; TEMP 36.9; O2SAT 97
--- NOTE | 2025-03-23 07:39 | P.PNGS_ITS ---
Subjective Subjective Date of Service: 03/23/25 Interval history: patient overall doing well. denies pain, nausea, vomiting. Continues to have drainage via midline incision, malodorous. multiple dressing changes daily. passing gas and stool via ostomy. Physical Exam 2 Vital Signs: Vital Signs: Last Vital Signs Temp 98.5 F 03/23/25 07:19 Pulse 75 03/23/25 07:19 Resp 18 03/23/25 07:19 BP 130/71 03/23/25 07:19 Pulse Ox 97 03/23/25 07:19 O2 Del Method Room Air 03/23/25 07:19 O2 Flow Rate 2 03/10/25 07:47 BMI result Body Mass Index 34.0 Const: General: comfortable and no acute distress O rientation/consciousness: patient oriented x3 Resp: Effort & Inspection: normal respiratory effort and able to speak in complete sentences GI: Other: midline incision: inferor aspect remains open about 5 cm, packed with dakins soaked gauze and covered with fluff gauze/ABD. Malodorous, continues to drain Palpation (GI): Soft to palpation, not firm, nontender, no guarding and not rigid Neuro: General: patient oriented x3 Objective Data Active Medications Acetaminophen (Acetaminophen 325 Mg Tablet) 650 mg PO Q6H PRN PRN Reason: Pain, Mild 1-3,fever,headache Last Admin: 03/16/25 22:23 Dose: 650 mg Documented By: KATHARINE Dextrose (Dextrose 50 % 25 Gm/50 Ml Syringe) 25 gm IVPUSH Q15M PRN; Protocol PRN Reason: per Hypoglycemia Standing Ord. Enoxaparin Sodium (Enoxaparin Sodium 40 Mg/0.4 Ml Syringe) 40 mg SUBCUT Q24H [facility] Last Admin: 03/22/25 21:12 Dose: 40 mg Documented By: JOSE Glucose (Glucose Gel 15 Gm Gel..Gram.) 15 gm PO Q15M PRN; Protocol PRN Reason: per Hypoglycemia Standing Ord. Piperacillin Sod/Tazobactam (Sod 3.375 gm/ Sodium Chloride) 50 mls @ 100 mls/hr IV Q6H [facility] Last Infusion: 03/23/25 05:39 Dose: Infused Documented By: JOSE Insulin Human Lispro (Insulin Lispro 100 Unit/Ml 3 Ml Vial) 0 unit SUBCUT QIDACHS [facility]; Protocol Last Admin: 03/22/25 21:12 Dose: Not Given Documented By: JOSE Non-Admin Reason: No Insulin Coverage Mupirocin (Mupirocin 2 % Oint 22 Gm Tube) 1 appl TOPICAL TID [facility]; Protocol Last Admin: 03/22/25 21:13 Dose: 1 appl Documented By: JOSE Ondansetron HCl (Ondansetron Hcl 4 Mg/2 Ml Vial) 4 mg IVPUSH QID PRN PRN Reason: Nausea Oxycodone HCl (Oxycodone Hcl Immed Release 5 Mg Tablet) 10 mg PO Q4H PRN PRN Reason: Pain, Moderate(Pain Scale 4-6) Last Admin: 03/22/25 22:24 Dose: 10 mg Documented By: JOSE Sodium Chloride (0.9 % Sodium Chloride Flush 3 Ml Syringe) 3 ml IVFLUSH QSHIFT [facility] Last Admin: 03/22/25 21:13 Dose: 3 ml Documented By: JOSE Sodium Hypochlorite (Sodium Hypochlorite 0.125% 473 Ml Solution) 1 appl TOPICAL DAILY [facility] Last Admin: 03/22/25 09:09 Dose: 1 appl Documented By: YE Labs 03/21/25 05:13 03/20/25 15:56 Labs: Laboratory Results - last 24 hr 03/22/25 03/22/25 03/22/25 11:04 16:12 20:01 POC Glucose 125 H 135 H 138 H 03/23/25 06:59 POC Glucose 91 Microbiology Microbiology Results: Microbiology 03/19/25 07:30 Gram Stain - Final Incision Routine Culture - Final Escherichia coli Escherichia coli#2 Anaerobic Culture - Preliminary Procedures Date of Service Date of Service: 03/23/25 Progress Note: A&P Assessment and plan (1) Abdominal wall fluid collections: Status: Acute (2) Status post Nick procedure: Status: Acute Plan 54 year old male s/p hartmanns, now with a now open and draining subcutaneous abscess. Patient overall doing overall. denies pain, n/v, fever, chills. tolerating diet, stoma output appropriate. Midline incision wound remains open, draining malodorous discharge, will continue with dakins soaked packing and dressing changes BID. Continue wound care, dressing changes BID with dakins, fluff gauze, abd continue IV zosyn regular diet ambulation recommended Time Spent With Patient Time: Total time managing care of this patient today ____ minutes. Quality Stroke Does the patient have a stroke diagnosis?: No VTE Prior VTE?: No VTE Risk Level:: Surgical - moderate VTE Device Contraindication: N/A - Device Ordered VTE Drug Contraindication: N/A - Med Ordered
[2025-03-23] MEDS: 0.9 % Sodium Chloride Flush 3 ML SYRINGE IVFLUSH ×3 (09:03→21:45)
[2025-03-23 11:15] LABS: Glucose, Whole Blood 150 mg/dL (60-115)
[2025-03-23 15:31] VITALS: BP 156/76; PULSE 80; RESP 18; TEMP 36.6; O2SAT 96
[2025-03-23 16:06] LABS: Glucose, Whole Blood 94 mg/dL (60-115)
--- NOTE | 2025-03-23 17:20 | HO.OSTOMY ---
Ostomy Consult: Follow up teaching 54yr old male admitted to [facility] on 03/08/25 see H&P for detailed history and admission.? Consult follow up for new ostomy teaching. He had an End Colostomy creation on 03/09/[address] Bejarano. Patient was set for d/c last week but was delayed due to surgical incision dehiscence - treated and packed per surgery team with Dakins. Arrival to bedside patient reports he is feeling well and improved since drainage started. His pouch was assessed and no leak noted but due to be changed he was agreeable. Due to the large amount of hair present the area around his stoma was gently shaved. His midline was saturdated as well and therefore changed. Given the close proximity of the midline packing to the adhesive wafer this will likely impact the length of time he can go with his pouch, he demonstrates understanding. Pouch change completed. Midline dressing change and packing completed - lightly packed with dakin moist gauze, no foul odor noted - call drainage noted. Pouch change completed in coloplast convex pouch # [id number] cut oval 30mm x 40mm. C elastic strips used along with belt for completion. There is concern for patient discharging to home given he has no VNA services and now has a midline wound to care for this will be challenging for him.
[2025-03-23 19:02] VITALS: BP 126/69; PULSE 85; RESP 20; TEMP 37.2; O2SAT 96
[2025-03-23 20:42] LABS: Glucose, Whole Blood 110 mg/dL (60-115)
[2025-03-23] MEDS: oxyCODONE HCl Immed Release 5 MG TABLET 10 MG PO (21:44)
[2025-03-24 03:10] VITALS: BP 141/78; PULSE 85; RESP 20; TEMP 37.4; O2SAT 98
[2025-03-24 07:29] LABS: Glucose, Whole Blood 92 mg/dL (60-115)
[2025-03-24 07:40] VITALS: BP 126/75; PULSE 82; RESP 18; TEMP 36.7; O2SAT 93
[2025-03-24] MEDS: 0.9 % Sodium Chloride Flush 3 ML SYRINGE IVFLUSH ×3 (08:13→21:40)
--- NOTE | 2025-03-24 09:14 | P.PNGS_ITS ---
Subjective Subjective Date of Service: 03/24/25 <Jacky Hoffmann PA-C - Last Filed: 03/24/25 10:48> 03/24/25 <Teodoro Bejarano MD - Last Filed: 03/24/25 11:41> Interval history: Tolerating diet, good ostomy output. Complaining of frequent urination, some burning with peeing. Denies pain, except for during wound care. Denies fever, chills. Denies nausea or vomiting. <Jacky Hoffmann PA-C - Last Filed: 03/24/25 10:48> Physical Exam 2 Vital Signs: Vital Signs: Last Vital Signs Temp 98.1 F 03/24/25 07:40 Pulse 82 03/24/25 07:40 Resp 18 03/24/25 07:40 BP 126/75 03/24/25 07:40 Pulse Ox 93 03/24/25 07:40 O2 Del Method Room Air 03/24/25 07:40 O2 Flow Rate 2 03/10/25 07:47 BMI result Body Mass Index 34.0 <Jacky Hoffmann PA-C - Last Filed: 03/24/25 10:48> Const: General: comfortable and no acute distress <Jacky Hoffmann PA-C - Last Filed: 03/24/25 10:48> Orientation/consciousness: patient oriented x3 <JUSTINO Jain Last Filed: 03/24/25 10:48> Resp: Effort & Inspection: normal respiratory effort and able to speak in complete sentences <Jacky Hoffmann PA-C - Last Filed: 03/24/25 10:48> GI: Other: Ostomy in place, good output. 5 cm open wound in the midline incision, packed with Dakin soaked gauze. Some improvement in odor, smaller amounts of pus noted. Tissue appears to have granulation tissue. <Jacky Hoffmann PA-C - Last Filed: 03/24/25 10:48> Inspection: No distended <JUSTINO Jain Last Filed: 03/24/25 10:48> Palpation (GI): Soft to palpation, not firm, Tenderness to palpation present (GI) (Tender around incision site), no guarding and not rigid <JUSTINO Jain Last Filed: 03/24/25 10:48> : Other: Improvement in scrotal edema <Jacky Hoffmann PA-C - Last Filed: 03/24/25 10:48> Neuro: General: patient oriented x3 <Jacky Hoffmann PA-C - Last Filed: 03/24/25 10:48> Objective Data Active Medications Acetaminophen (Acetaminophen 325 Mg Tablet) 650 mg PO Q6H PRN PRN Reason: Pain, Mild 1-3,fever,headache Last Admin: 03/16/25 22:23 Dose: 650 mg Documented By: KATHARINE Dextrose (Dextrose 50 % 25 Gm/50 Ml Syringe) 25 gm IVPUSH Q15M PRN; Protocol PRN Reason: per Hypoglycemia Standing Ord. Enoxaparin Sodium (Enoxaparin Sodium 40 Mg/0.4 Ml Syringe) 40 mg SUBCUT Q24H [facility] Last Admin: 03/23/25 21:44 Dose: 40 mg Documented By: JOSE Glucose (Glucose Gel 15 Gm Gel..Gram.) 15 gm PO Q15M PRN; Protocol PRN Reason: per Hypoglycemia Standing Ord. Piperacillin Sod/Tazobactam (Sod 3.375 gm/ Sodium Chloride) 50 mls @ 100 mls/hr IV Q6H [facility] Last Infusion: 03/24/25 05:46 Dose: Infused Documented By: JOSE Insulin Human Lispro (Insulin Lispro 100 Unit/Ml 3 Ml Vial) 0 unit SUBCUT QIDACHS [facility]; Protocol Last Admin: 03/24/25 08:09 Dose: Not Given Documented By: OSMAN Non-Admin Reason: No Insulin Coverage Mupirocin (Mupirocin 2 % Oint 22 Gm Tube) 1 appl TOPICAL TID [facility]; Protocol Last Admin: 03/24/25 08:18 Dose: 1 appl Documented By: OSMAN Ondansetron HCl (Ondansetron Hcl 4 Mg/2 Ml Vial) 4 mg IVPUSH QID PRN PRN Reason: Nausea Oxycodone HCl (Oxycodone Hcl Immed Release 5 Mg Tablet) 10 mg PO Q4H PRN PRN Reason: Pain, Moderate(Pain Scale 4-6) Last Admin: 03/23/25 21:44 Dose: 10 mg Documented By: JOSE Sodium Chloride (0.9 % Sodium Chloride Flush 3 Ml Syringe) 3 ml IVFLUSH QSHIFT [facility] Last Admin: 03/24/25 08:13 Dose: 3 ml Documented By: OSMAN Sodium Hypochlorite (Sodium Hypochlorite 0.125% 473 Ml Solution) 1 appl TOPICAL DAILY [facility] Last Admin: 03/24/25 08:17 Dose: 1 appl Documented By: OSMAN Comments: applied by surgical staff <Jacky Hoffmann PA-C - Last Filed: 03/24/25 10:48> Labs CBC & Chem 7: 03/21/25 05:13 03/20/25 15:56 <Jacky Hoffmann PA-C - Last Filed: 03/24/25 10:48> Labs: Laboratory Results - last 24 hr 03/23/25 03/23/25 03/23/25 11:11 16:03 20:39 POC Glucose 150 H 94 110 03/24/25 07:23 POC Glucose 92 <Jacky Hoffmann PA-C - Last Filed: 03/24/25 10:48> Microbiology Microbiology Results: Microbiology 03/19/25 07:30 Gram Stain - Final Incision Routine Culture - Final Escherichia coli Escherichia coli#2 Anaerobic Culture - Preliminary <Jacky Hoffmann PA-C - Last Filed: 03/24/25 10:48> Procedures Date of Service Date of Service: 03/24/25 <Jacky Hoffmann PA-C - Last Filed: 03/24/25 10:48> 03/24/25 <Teodoro Bejarano MD - Last Filed: 03/24/25 11:41> Progress Note: A&P Assessment and plan (1) Perforation of sigmoid colon due to diverticulitis: Status: Acute <Jacky Hoffmann PA-C - Last Filed: 03/24/25 10:48> (2) Status post Nick procedure: Status: Acute <Jacky Hoffmann PA-C - Last Filed: 03/24/25 10:48> Assessment and Plan: 54-year-old male status post Nick's procedure, now with subcutaneous abdominal wall abscess that remains open and draining. Patient overall doing well. Denies pain aside from doing wound care.. Denying nausea or vomiting, fever, chills. Patient experiencing frequent urination some burning with urination. We will check UA possible UTI. On exam abdomen remains soft and benign. Midline incision open wound appears to be improving. There was noted improvement in the malodor. Output appears to be decreasing. Her continue with packing with Dakin's soaked gauze and covering with fluff gauze and ABD. Continue recommend dressing changes b.i.d. culture of abdominal fluid resulting E coli with susceptibility to cefepime, ceftriaxone, resistant to ampicillin and Bactrim. Twice daily wound care, dressing changes Continue IV Zosyn Continue to recommend ambulation as tolerated Pain control <Jacky Hoffmann PA-C - Last Filed: 03/24/25 10:48> Time Spent With Patient Time: Total time managing care of this patient today ____ minutes. <Jacky Hoffmann PA-C - Last Filed: 03/24/25 10:48> Quality Stroke Does the patient have a stroke diagnosis?: No <Jacky Hoffmann PA-C - Last Filed: 03/24/25 10:48> VTE Prior VTE?: No <Jacky Hoffmann PA-C - Last Filed: 03/24/25 10:48> VTE Risk Level:: Surgical - moderate <Jacky Hoffmann PA-C - Last Filed: 03/24/25 10:48> VTE Device Contraindication: N/A - Device Ordered <Jacky Hoffmann PA-C - Last Filed: 03/24/25 10:48> VTE Drug Contraindication: N/A - Med Ordered <Jacky Hoffmann PA-C - Last Filed: 03/24/25 10:48>
[2025-03-24 11:14] LABS: Glucose, Whole Blood 133 mg/dL (60-115)
[2025-03-24 11:49] LABS: Appearance Urine Clear; Glucose Urine UA Negative (Negative); PH 7.0 (5.0-9.0); Specific Gravity - Urine 1.015 (1.005-1.025)
--- NOTE | 2025-03-24 14:51 | MHC.CM.PN ---
EMR REVIEWED, PT IS NOT YET MEDICALLY CLEARED FOR DC. (CONTINUES WITH BID DRESSING CHANGES AND IV ABT) [facility] FOLLOWING AND UPDATED. CM CONTINUES TO FOLLOW FOR ANY CHANGE TO DC PLAN/NEEDS.
[2025-03-24 15:27] VITALS: BP 155/96; PULSE 88; RESP 17; TEMP 36.9; O2SAT 94
[2025-03-24 15:54] VITALS: BP 139/73; PULSE 84
[2025-03-24 16:18] LABS: Glucose, Whole Blood 124 mg/dL (60-115)
[2025-03-24 19:06] VITALS: BP 131/70; PULSE 89; RESP 18; TEMP 36.9; O2SAT 96
[2025-03-24 20:14] LABS: Glucose, Whole Blood 146 mg/dL (60-115)
[2025-03-24] MEDS: oxyCODONE HCl Immed Release 5 MG TABLET 10 MG PO (22:07)
[2025-03-25 03:42] VITALS: BP 129/74; PULSE 69; RESP 16; TEMP 36.8; O2SAT 98
[2025-03-25 07:20] LABS: Glucose, Whole Blood 99 mg/dL (60-115)
[2025-03-25 08:06] VITALS: BP 128/78; PULSE 72; RESP 12; TEMP 36.3; O2SAT 94
--- NOTE | 2025-03-25 08:29 | PM.PNGS ---
Subjective Subjective Date of Service: 03/25/25 <Jacky Hoffmann PA-C - Last Filed: 03/25/25 09:29> 03/25/25 <Alexis Main MD - Last Filed: 03/25/25 08:45> Interval history: doing well, no new complaints. Does not feel confident taking care of wound at home. <Jacky Hoffmann PA-C - Last Filed: 03/25/25 09:29> Physical Exam Vital Signs: Vital Signs: Last Vital Signs Temp 97.3 F 03/25/25 08:06 Pulse 72 03/25/25 08:06 Resp 12 03/25/25 08:06 BP 128/78 03/25/25 08:06 Pulse Ox 94 03/25/25 08:06 O2 Del Method Room Air 03/25/25 08:06 O2 Flow Rate 2 03/10/25 07:47 BMI result Body Mass Index 34.0 <Jacky Hoffmann PA-C - Last Filed: 03/25/25 09:29> Const: General: comfortable and no acute distress <Jacky Hoffmann PA-C - Last Filed: 03/25/25 09:29> Orientation/consciousness: patient oriented x3 <Jacky Hoffmann PA-C - Last Filed: 03/25/25 09:29> GI: Other: 5 cm open wound in the midline incision with tracking inferiorly. scant thing call discharge. granulation tissue on the base. No odor ostomy functioning well <Jacky Hoffmann PA-C - Last Filed: 03/25/25 09:29> Inspection: No distended <Jacky Hoffmann PA-C - Last Filed: 03/25/25 09:29> Palpation (GI): Soft to palpation, not firm, Tenderness to palpation present (GI) (at midline incision), no guarding and not rigid <Jacyk Hoffmann PA-C - Last Filed: 03/25/25 09:29> Neuro: General: patient oriented x3 <JUSTINO Jain Last Filed: 03/25/25 09:29> Objective Data Active Medications Acetaminophen (Acetaminophen 325 Mg Tablet) 650 mg PO Q6H PRN PRN Reason: Pain, Mild 1-3,fever,headache Last Admin: 03/16/25 22:23 Dose: 650 mg Documented By: HO.TUMASY Dextrose (Dextrose 50 % 25 Gm/50 Ml Syringe) 25 gm IVPUSH Q15M PRN; Protocol PRN Reason: per Hypoglycemia Standing Ord. Enoxaparin Sodium (Enoxaparin Sodium 40 Mg/0.4 Ml Syringe) 40 mg SUBCUT Q24H [facility] Last Admin: 03/24/25 19:19 Dose: 40 mg Documented By: TITO Glucose (Glucose Gel 15 Gm Gel..Gram.) 15 gm PO Q15M PRN; Protocol PRN Reason: per Hypoglycemia Standing Ord. Piperacillin Sod/Tazobactam (Sod 3.375 gm/ Sodium Chloride) 50 mls @ 100 mls/hr IV Q6H [facility] Last Infusion: 03/25/25 04:14 Dose: Infused Documented By: TITO Insulin Human Lispro (Insulin Lispro 100 Unit/Ml 3 Ml Vial) 0 unit SUBCUT QIDACHS [facility]; Protocol Last Admin: 03/25/25 07:48 Dose: Not Given Documented By: OSMAN Non-Admin Reason: No Insulin Coverage Mupirocin (Mupirocin 2 % Oint 22 Gm Tube) 1 appl TOPICAL TID [facility]; Protocol Last Admin: 03/24/25 22:08 Dose: 1 appl Documented By: TITO Ondansetron HCl (Ondansetron Hcl 4 Mg/2 Ml Vial) 4 mg IVPUSH QID PRN PRN Reason: Nausea Oxycodone HCl (Oxycodone Hcl Immed Release 5 Mg Tablet) 10 mg PO Q4H PRN PRN Reason: Pain, Severe (Pain Scale 7-10) Last Admin: 03/24/25 22:07 Dose: 10 mg Documented By: TITO Sodium Chloride (0.9 % Sodium Chloride Flush 3 Ml Syringe) 3 ml IVFLUSH QSHIFT [facility] Last Admin: 03/24/25 21:40 Dose: 3 ml Documented By: TITO Sodium Hypochlorite (Sodium Hypochlorite 0.125% 473 Ml Solution) 1 appl TOPICAL DAILY [facility] Last Admin: 03/24/25 08:17 Dose: 1 appl Documented By: OSMAN Comments: applied by surgical staff <Jacky Hoffmann PA-C - Last Filed: 03/25/25 09:29> Labs CBC & Chem 7: 03/21/25 05:13 03/20/25 15:56 <Jacky Hoffmann PA-C - Last Filed: 03/25/25 09:29> Labs: Laboratory Results - last 24 hr 03/24/25 03/24/25 03/24/25 11:08 11:31 16:12 POC Glucose 133 H 124 H Urine Color Yellow Urine Appearance Clear Urine pH 7.0 Ur Specific [place] 1.015 Urine Protein Negative Urine Glucose (UA) Negative Urine Ketones Negative Urine Blood Negative Urine Nitrite Negative Ur Leukocyte Esterase Negative 03/24/25 03/25/25 20:07 07:11 POC Glucose 146 H 99 Urine Color Urine Appearance Urine pH Ur Specific [place] Urine Protein Urine Glucose (UA) Urine Ketones Urine Blood Urine Nitrite Ur Leukocyte Esterase <Jacky Hoffmann PA-C - Last Filed: 03/25/25 09:29> Microbiology Microbiology Results: Microbiology 03/19/25 07:30 Gram Stain - Final Incision Routine Culture - Final Escherichia coli Escherichia coli#2 Anaerobic Culture - Final <Jacky Hoffmann PA-C - Last Filed: 03/25/25 09:29> Procedures Date of Service Date of Service: 03/25/25 <Jacky Hoffmann PA-C - Last Filed: 03/25/25 09:29> 03/25/25 <Alexis Main MD - Last Filed: 03/25/25 08:45> Progress Note: A&P Assessment and plan (1) Perforation of sigmoid colon due to diverticulitis: Status: Acute <Jacky Hoffmann PA-C - Last Filed: 03/25/25 09:29> Assessment and Plan: Feels well Stoma functioning well Tolerating diet Abdomen is soft and benign Open wound on the inferior part of the midline incision, granulating well, appears clean He has not confident about doing wound care himself at home Unable to have visiting nurse We will try to have an VAC placed so he can be discharged or try to have dressings done tomorrow and having change in the office early next week Seen and examined independently <Alexis Main MD - Last Filed: 03/25/25 08:45> (2) Status post Nick procedure: Status: Acute <Jacky Hoffmann PA-C - Last Filed: 03/25/25 09:29> Assessment and Plan: 54-year-old male status post Nick's procedure, now with subcutaneous abdominal wall abscess that remains open and draining. Patient overall doing well. Denies pain aside from doing wound care.. Denying nausea or vomiting, fever, chills. UA negative for UTI. On exam abdomen remains soft and benign. Midline incision open wound appears to be improving. No evidence of malodor. Output appears to be decreasing. Granulation tissue at the wound base. Her continue with packing with Dakin's soaked gauze and covering with fluff gauze and ABD. Continue recommend dressing changes daily. Planning for discharge in the next few days. Patient feels he will have difficulty with caring for wound at home. Has 3 VNA visits. daily wound care, dressing changes. Packed with lightly soaked dakins gauze. When d/c can do wet to dry packing with daily dressing changes. Continue IV Zosyn Continue to recommend ambulation as tolerated Pain control <Jacky Hoffmann PA-C - Last Filed: 03/25/25 09:29> Time Spent With Patient Time: Total time managing care of this patient today ____ minutes. <Jacky Hoffmann PA-C - Last Filed: 03/25/25 09:29> Quality Stroke Does the patient have a stroke diagnosis?: No <Jacky Hoffmann PA-C - Last Filed: 03/25/25 09:29> VTE Prior VTE?: No <Jacky Hoffmann PA-C - Last Filed: 03/25/25 09:29> VTE Risk Level:: Surgical - moderate <Jacky Hoffmann PA-C - Last Filed: 03/25/25 09:29> VTE Device Contraindication: N/A - Device Ordered <Jacky Hoffmann PA-C - Last Filed: 03/25/25 09:29> VTE Drug Contraindication: N/A - Med Ordered <Jacky Hoffmann PA-C - Last Filed: 03/25/25 09:29>
[2025-03-25] MEDS: 0.9 % Sodium Chloride Flush 3 ML SYRINGE IVFLUSH ×2 (08:49→15:56)
[2025-03-25 11:40] LABS: Glucose, Whole Blood 118 mg/dL (60-115)
--- NOTE | 2025-03-25 13:34 | P.F2F_ITS ---
Service Date Service Date: 03/25/25 Encounter Date of encounter: 03/25/25 Reasons for Services Signs and symptoms assessed: ostomy care wound care (wound care instructions in discharge summary) Reason for residential: wound care (ostomy and midline incision care) Homebound: Leaving the home is medically contraindicated at this time without the asist of a device and/or another person due th the listed conditions above and below. Reason homebound: weakness related to hospital stay Certification: Based on the above findings, I certify that this patient is confined to the home and needs intermittent residential care, physical therapy and/or speech therapy, or continues to need occupational therapy. The patient is under my care, and I have initiated the establishment of the plan of care. The patient will be followed by a physician who will periodically review the plan of care. Time Spent With Patient Time: Total time managing care of this patient today ____ minutes.
--- NOTE | 2025-03-25 14:20 | MHC.CM.PN ---
DP: PT HAS BEEN MEDICALLY CLEARED FOR DC HOME WITH [facility] FOR 3 NURSING VISITS THEN WILL HAVE OP CARE AT [facility]. PT'S SISTER WILL TRANSPORT HOME.
[2025-03-25] MEDS: oxyCODONE HCl Immed Release 5 MG TABLET 10 MG PO (15:18)
[2025-03-25 16:48] VITALS: BP 133/81; PULSE 86; RESP 18; TEMP 36.9; O2SAT 95
[2025-03-25 17:19] LABS: Glucose, Whole Blood 124 mg/dL (60-115)
--- NOTE | 2025-03-25 17:49 | PC.NURSE ---
[facility] [place] ,CHAY Hoffmann was notified and will send those meds to [facility],patient notified and agree with this plan
--- NOTE | 2025-04-01 17:31 | P.CDIM_ITS ---
PROVIDER RESPONSE TEXT: To clarify, the appropriate diagnosis supported by the clinical indicators: Localized infection only, without systemic illness: Superficial fluid collection in abdominal wall QUERY TEXT: PHYSICIAN'S DOCUMENTATION REQUEST Date of Query: 03/22/2025 08:08 AM EDT Patient Name: ORTIZ BARNETT Admit Date: 03/08/2025 Dear Teodoro Bejarano MD, A review of the medical record indicates additional documentation may be needed. Please review below and update the documentation accordingly. Clinical Indicators: bands on 03/09/25: 16.0%, evidence of peritonitis s/p Nick procedure for perforated sigmoid diverticulitis CT abdomen pelvis 03/18/25: likely postsurgical seroma, early abscess would not be excludable WBC 22.1 pulse 91 incision culture 03/19/25: E. Coli IV Piperacillin Sod/Tazobactam Q6H Please clarify which, if any, of the following is the most likely etiology of the above symptoms and treatment rendered: Sepsis Severe Sepsis Localized infection only, without systemic illness Indicate the site/source, such as UTI, pneumonia, etc. Other (explain) Clinically unable to determine (explain) Thank you, Santa Kwan RN Use of terms such as suspected, likely, concern for, or probable (associated with a specific diagnosis that is being evaluated, monitored, or treated as if it exists) are acceptable and can be coded in the inpatient setting, when documented at the time of discharge. Please use your independent medical judgment in providing your response. THIS QUERY IS PART OF THE PERMANENT MEDICAL RECORD
--- NOTE | 2025-04-02 07:36 | P.CDIM_ITS ---
PROVIDER RESPONSE TEXT: To clarify, the appropriate diagnosis supported by the clinical indicators: Acute blood loss anemia QUERY TEXT: PHYSICIAN'S DOCUMENTATION REQUEST Date of Query: 03/24/2025 09:25 AM EDT Patient Name: ORTIZ BARNETT Admit Date: 03/08/2025 Dear Teodoro Bejarano MD, A review of the medical record indicates additional documentation may be needed. Please review below and update the documentation accordingly. Clinical Indicators: H&H on 03/10/25: 14.1/41.7 H&H on 03/21/25: 10.7/31.8 Based on the above, could you clarify which of the following is the most likely type of anemia you are evaluating, treating, and/or monitoring? Acute blood loss anemia Acute blood loss anemia with baseline chronic anemia (specify type) Anemia of chronic disease indicate if neoplastic disease, CKD, or other Chronic iron deficiency anemia due to blood loss Vitamin B12 deficiency anemia indicate etiology, such as intrinsic factor deficiency, malabsorption, transcobalamin II deficiency, dietary, etc Folate deficiency anemia indicate etiology, such as dietary, drug-induced, etc Protein deficiency anemia Other (explain) Clinically unable to determine (explain) Thank you, Santa Kwan RN Use of terms such as suspected, likely, concern for, or probable (associated with a specific diagnosis that is being evaluated, monitored, or treated as if it exists) are acceptable and can be coded in the inpatient setting, when documented at the time of discharge. Please use your independent medical judgment in providing your response. THIS QUERY IS PART OF THE PERMANENT MEDICAL RECORD
== END 2025-03-25 18:49 | disposition home or self-care (01) | DRG 231 ==
LOC: HO.ED 10:36 → HO.EDOVER 11:07 → HO.S3 17:38
PROVIDERS: Hospitalist; Physician Assistant Surgical; Surgery; Admitting Provider Surgery; Emergency Provider Emergency Medicine Emergency Medical Services; PCP Internal Medicine; Visit Provider Surgery
PROC: 0D1M0Z4 Bypass Descending Colon to Cutaneous, Open Approach (ICD-10-PCS; CPT 49000; principal; 2025-03-09 13:30)
DX: K57.20 Diverticulitis of large intestine with perforation and abscess without bleeding (principal); D62 Acute posthemorrhagic anemia; E11.9 Type 2 diabetes mellitus without complications; N43.3 Hydrocele, unspecified; N50.89 Other specified disorders of the male genital organs; Y83.9 Surgical procedure, unspecified as the cause of abnormal reaction of the patient, or of later complication, without mention of misadventure at the time of the procedure; T81.41XA Infection following a procedure, superficial incisional surgical site, initial encounter; I10 Essential (primary) hypertension; G89.18 Other acute postprocedural pain; Z79.899 Other long term (current) drug therapy
CPT/HCPCS: 36415; 71045; 74177; 76870; 80048; 80053; 80076; 81003; 82565; 82947; 83605; 83690; 85007; 85025; 85027; 85610; 85730; 86850; 86900; 86901; 87040; 87070; 87073; 87077; 87186; 87205; 88307; 93005; 99285; J0131; J0330; J0665; J1100; J1171; J1650; J1885; J2003; J2250; J2270; J2371; J2405; J2543; J2598; J2704; J2795; J3010; J7120; Q9967

== ENCOUNTER → 2025-03-08 04:25 | Outpatient (BNV) | payer MEDICAID, SELFPAY | PROVIDERS: Emergency Provider Emergency Medicine Emergency Medical Services; Visit Provider Surgery | DX: K57.20 Diverticulitis of large intestine with perforation and abscess without bleeding (principal) | CPT/HCPCS: 44143; 99222; 99232 ==

== ENCOUNTER → 2025-03-08 07:54 | Outpatient (BNV) | payer SELFPAY | PROVIDERS: Emergency Provider Emergency Medicine Emergency Medical Services; Visit Provider Radiology Diagnostic Radiology | DX: K57.20 Diverticulitis of large intestine with perforation and abscess without bleeding (principal); K66.8 Other specified disorders of peritoneum; R06.89 Other abnormalities of breathing | CPT/HCPCS: 71045; 74177 ==

== ENCOUNTER → 2025-03-08 10:27 | Outpatient (BNV) | payer MEDICAID, SELFPAY | PROVIDERS: Admitting Provider Surgery; Emergency Provider Emergency Medicine Emergency Medical Services; Visit Provider Internal Medicine Cardiovascular Disease | DX: R00.0 Tachycardia, unspecified (principal) | CPT/HCPCS: 93010 ==

== ENCOUNTER 2025-03-08 11:06 | Outpatient (BNV) | payer MEDICAID, SELFPAY | END 2025-03-18 20:25 | PROVIDERS: Admitting Provider Surgery; Emergency Provider Emergency Medicine Emergency Medical Services; PCP Internal Medicine; Visit Provider Radiology Diagnostic Radiology | DX: R60.0 Localized edema (principal) | CPT/HCPCS: 74177 ==

== ENCOUNTER 2025-03-08 11:06 | Outpatient (BNV) | payer MEDICAID, SELFPAY | END 2025-03-17 12:49 | PROVIDERS: Admitting Provider Surgery; Emergency Provider Emergency Medicine Emergency Medical Services; PCP Internal Medicine; Visit Provider Radiology Diagnostic Radiology | DX: N43.3 Hydrocele, unspecified (principal); N50.89 Other specified disorders of the male genital organs | CPT/HCPCS: 76870 ==

== ENCOUNTER 2025-03-08 11:06 | Outpatient (BNV) | payer MEDICAID, SELFPAY | END 2025-03-15 07:50 | PROVIDERS: Admitting Provider Surgery; Emergency Provider Emergency Medicine Emergency Medical Services; PCP Internal Medicine; Visit Provider Radiology Diagnostic Radiology | DX: R91.8 Other nonspecific abnormal finding of lung field (principal) | CPT/HCPCS: 71045 ==

== ENCOUNTER → 2025-03-08 11:06 | Outpatient (BNV) | payer MEDICAID, SELFPAY | PROVIDERS: Admitting Provider Surgery; Emergency Provider Emergency Medicine Emergency Medical Services; Visit Provider Hospitalist | DX: K57.20 Diverticulitis of large intestine with perforation and abscess without bleeding (principal); E11.9 Type 2 diabetes mellitus without complications; I10 Essential (primary) hypertension | CPT/HCPCS: 99223; 99232 ==

== ENCOUNTER 2025-03-29 13:36 | Outpatient (AMB) | payer MEDICAID, SELFPAY ==
--- NOTE | 2025-03-29 13:25 | A.OFFVIS_ITS ---
Vital Signs 03/29/25 13:36 Height 6 ft Weight 227 lb BMI 30.8 BP 181/89 H Blood Pressure Location Lt brachial Position Sitting Pulse 93 Intake Visit Reasons: wound check Intake Note: Patient is seen in office for wound check, post Exploratory laparotomy, Nick procedure. Pt c/o: admits to pain, some clear discharge, denies redness or infection Junk Removal Specialist Required: No Accompanied by: Sister Allergies No Known Allergies Allergy (Mild, Verified 03/29/25 13:38) NONE HPI HPI wound check: Details: Patient reporting for wound check status post Nick procedure. Patient reports when care has been going well on his own. Had VNA on Saturday we changed ostomy and looked at his dressing. Had some pain over the weekend because he was unable to warp picker his prescription from the pharmacy. Reports pain with ambulation, describes as a pressure around the incision. Ostomy has been functioning well, he is tolerating diet as normal. Reports having to use less packing. Denies fever or chills. He is nervous about removing the dung is he does not want to open the wound anymore. 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 Appears to be functioning well. Midline incision: Packing in place, some green colored noted on the packing and the covering dressings. Wound appears to be healthy minimal thin discharge noted. Lots of granulation tissue. Wound was probed with Q-tip about 4 cm tracking superiorly 2 or 3 cm tracking inferiorly remains about 2-3 cm deep. Minimally tender. The wound was repacked. Quarter-inch packing was placed in the superior aspect, this was wrapped in saline soaked gauze to ensure it was not lost with packing change. Wound was covered with dry gauze and an ABD, secured with tape. Neuro General: patient oriented x3 Assessment & Plan Assessment & Plan (1) Status post Nick procedure: Code(s): Z93.3 - Colostomy status Category: Surgical (2) Wound, open, abdominal wall, anterior: Code(s): S31.109A - Unspecified open wound of abdominal wall, unspecified quadrant wi thout penetration into peritoneal cavity, initial encounter Category: Medical Qualifiers: Encounter type: subsequent encounter Qualified Code(s): S31.109D - Unspecified open wound of abdominal wall, unspecified quadrant without penetration into peritoneal cavity, subsequent encounter (3) Pseudomonas infection: Code(s): A49.8 - Other bacterial infections of unspecified site Category: Medical Plan 54-year-old male status post Nick's procedure on 03/09/2025 following up in the office for routine follow-up and wound check. Patient reports he has been doing pretty well, has been managing dressing changes at home well. VNA came on Saturday helped him change his ostomy bag, did not change his dressing because he had already done it. Bowel function and appetite are at baseline. Ostomy continues to have good output. He is hypertensive in the office today, likely secondary to anxiety about the wound, increased pain due to not being able to warp picker his prescription. On exam, the patient's abdomen is soft and benign. When removing dressings there was a light green staining to the dressings, concerning for Pseudomonas infection, we will prescribe patient one-week of ciprofloxacin twice daily to cover for Pseudomonas. Four dung were removed. The inferior aspect of the wound had 2 dung removed. The superior aspect of the wound had 2 dung removed. There remains dung in the middle of the incision. Dressings were changed. Packing was placed into the superior aspect of the incision that tracks upwards about 4 cm to prevent this from closing off from the main portion of the wound. This packing was left intentionally very long and was wrapped in the gauze that was ultimately used for packing to ensure that it was not lost into the superior aspect of the wound. The primary aspect of the wound was packed with saline soaked gauze. This appears to have decreased in size since the patient was discharged the wound was further dressed with dry gauze and ABD pad on top covered with tape. Patient will continue with daily dressing changes. States VNA will come on Saturday for wound care. Patient will follow-up in the office this Saturday for another wound check due to limited VNA visits. Patient only has 3 visits with the VNA, will require nursing visits after VNA visits have run out to maintain wound care. Patient will continue with activity limitations, no heavy lifting or strenuous activity. Medications: New ciprofloxacin HCl 750 mg PO BID 14 tabs 0RF 7 days Coding Level of Care Code Est Pt Level 4 (10048) Diagnoses Status post Nick procedure Z93.3 Open wound of anterior abdominal wall, subsequent encounter S31.109D Encounter type: subsequent encounter Pseudomonas infection A49.8
[2025-03-29 13:36] VITALS: BP 181/89; PULSE 93; BMI 30.8
--- OUTSIDE RECORDS SUMMARY | 2025-03-29 14:05 | XMS_ITS | Data Portability ---
Author Organization [place] - [facility] Address [address] [place] [address] Care Team Providers Care Dental Nurse Name Role Phone DISHA CALLEJAS Primary Care Provider DISHA CALLEJAS Referring Provider [phone] Assessment No assessment recorded. Plan of Treatment Reminders Order Date Submit Date Provider Last Modified By Organization Details Last Modified Time Details Appointments None recorded. Lab urinalysis, dipstick [address] ([facility]), 16 [facility] Dylan, [place], [address], 08:13:50 culture, urine 2021 [facility] Patient Reg, [address] [place] [address], [address], 10:17:56 HbA1c (hemoglobin A1c), blood 2021 022 [email or web address] [facility] Patient [facility], [address] [place] [address], [address], 10:40:35 CMP, serum or plasma 2021 022 [facility] Patient [facility], [address] [place] [address], [address], 17:17:13 lipid panel, serum 2021 [facility] Patient [facility], [address] [place] [address], [address], 17:17:14 Referral gastroenter ologist referral [email or web address] [place] [address] - Gi, [address] [facility], [address], [place], [address], 2 08:26:45 nutritionis t/dietitian referral [email or web address] [place] [address] (Nutrition Services), [address] [place], [address], 2 15:42:35 Procedures None recorded. Surgeries None recorded. Imaging US, kidney - right kidney 2021 022 [facility] (Central Scheduling), [address] [place], [address], 08:54:00 Medication Orders diclofenac 1 % topical gel 2021 022 [facility]/Pharmacy #[id number], [address], [place], [phone], 2 12:33:58 metronidazo le 500 mg tablet [address]/Pharmacy #[id number], [address], [place], [id number], 2 13:50:46 Cipro 500 mg tablet [address]/Pharmacy #[id number], [address], [place], [id number], 13:50:40 Patient Targets Encounter Date Encounter Id Patient Goals Patient Target Last Modified By Organization Details Last Modified Time 12/06/2021 [id number] Goals: 1. Promote weight loss of 1# per week. 2. Promote BGlu management with HbA1C <5.7% 3. Promote lipid panel WNL. 4. Promote regular physical activity. Not available 12/29/2021 11:18:47 Patient Instructions Encounter Date Encounter Id Patient Instructions Last Modified By Organization Details Last Modified Time 12/06/2021 [id number] 2 month f/u or sooner if needed Not available 12/29/2021 11:18:45 Recomendaciones: 1. Disfruta de 3 comidas y 3 meriendas al d a. - Incluir prote na en cada comida y merienda. 2. En el desayuno, cambie a un johnston integral, charli el 100 % de carl integral. Agregue un pu ado o prieto owen a pieza de fruta. - Si tiene cereal fr o, pruebe Cheerios originales o Shredded Wheat (1 eber n owen o). Agregue prote jeff, charli nueces, leche de lucia o huevos. Agregue un pu ado de fruta si es posible. 3. Utilice el m todo del plato para crear almuerzos y cenas equilibrados con: - 1/2 plato de verduras sin almid n - 1/4 plato cereales/verduras feculentas/frijole s - 1/4 plato de prote na - Opcional pieza o pu ado de fruta 4. Combine un alimento con prote jeff/grasas con un alimento con carbohidratos para crear un refrigerio equilibrado. Evite comer fuera de los horarios establecidos de comidas y meriendas. 5. Incorporar cualquier cantidad de tiempo en la bicicleta est brionna o caminadora, 5 d as a la semana. Si hace buen tiempo, caminar al aire flip tambi n es prieto excelente opci n de ejercicio. Recommendations: 1. Enjoy 3 meals [...] Not available 12/06/2021 10:28:42 Reason for Referral Store Operations Manager/dietitian Refer ral for Prediabetes Referring Physician: Disha Callejas [facility], Encounter Date: 08/02/2021 Research And Development Tester Referral for Hematemesis Referring Physician: Disha Callejas [facility], Encounter Date: 10/26/2021 Results Created Date Observation Date Name Description Value Unit Range Abnormal Flag Note LastModifiedBy Organization Detail LastModifiedTime 10/26/1910/26/2021 HEMOG LOBIN A1C hemoglobin A1C % 6.2 % 4.0-5. 7 high % of the total HgB Inter preta tion ----- ----- ----- --- ----- ----- ----- - <5.7 Consi stent with the absen ce of diabe ras 5.7-6 .4 Consi stent with incre ased risk for diabe ras (pred iabet es) > or = to 6.5 Consi stent with Diabe ras Not Available [facility] [address] [place], [address] 10/26/2021 16:50:52 10/26/1910/26/2021 COMPR EHENS MACIE MET. PANEL sodium 136 mmol/ L 136-14 5 normal Not Available [facility] [address] [place], [address] 10/26/2021 17:17:12 10/26/1910/26/2021 COMPR EHENS MACIE MET. PANEL potassium 4.0 mmol/ L 3.5-5. 1 normal Not Available [facility] [address] [place], [address] 10/26/2021 17:17:12 10/26/19 22 10/26/2021 COMPR EHENS MACIE MET. PANEL chloride 100 mmol/ L 98-107 normal Not Available [facility] [address] [place], [address] 10/26/2021 17:17:12 10/26/19 22 10/26/2021 COMPR EHENS MACIE MET. PANEL carbon dioxide 25.3 mmol/ L 22-29 normal Not Available [facility] [address] [place] [address], [address] 10/26/2021 17:17:12 10/26/19 22 10/26/2021 COMPR EHENS MACIE MET. PANEL anion gap 15 mmol/ L 10-20 normal Not Available [facility] [address] [place] [address], [address] 10/26/2021 17:17:12 10/26/19 22 10/26/2021 COMPR EHENS MACIE MET. PANEL blood urea nitrogen 16 mg/dL 6-20 normal Not Available [facility] Department [address] [place], [address] 10/26/2021 17:17:12 10/26/19 22 10/26/2021 COMPR EHENS MACIE MET. PANEL creatinine 0.79 mg/dL 0.70-1 .2 normal Not Available [facility] [address] [place] [address], [address] 10/26/2021 17:17:12 10/26/19 22 10/26/2021 COMPR EHENS [...] under the age of 18 Not Available [facility] [address] [place], [address] 10/26/2021 17:17:12 10/26/19 22 10/26/2021 COMPR EHENS MACIE MET. PANEL glucose 116 mg/dL 70-106 high Not Available [facility] [address] [place], [address] 10/26/2021 17:17:12 10/26/19 22 10/26/2021 COMPR EHENS MACIE MET. PANEL calcium 9.4 mg/dL 8.6-10 .3 normal Not Available [facility] [address] [place], [address] 10/26/2021 17:17:12 10/26/19 22 10/26/2021 COMPR EHENS MACIE MET. PANEL bilirubin total 0.4 mg/dL 0.2-1. 2 normal Not Available [facility] [address] [place], [address] 10/26/2021 17:17:12 10/26/19 22 10/26/2021 COMPR EHENS MACIE MET. PANEL aspartate amino transferase 23 U/L 5-40 normal Not Available [facility] Department [address] [place], [address] 10/26/2021 17:17:12 10/26/19 22 10/26/2021 COMPR EHENS MACIE MET. PANEL alanine aminotransfe rase 27 U/L 5-41 normal Not Available [facility] Department [address] [place], [address] 10/26/2021 17:17:12 10/26/19 22 10/26/2021 COMPR EHENS MACIE MET. PANEL total protein 7.1 g/dL 6.4-8. 3 normal Not Available [facility] [address] [place], [address] 10/26/2021 17:17:12 10/26/19 22 10/26/2021 COMPR EHENS MACIE MET. PANEL albumin level 4.4 g/dL 3.5-5. 2 normal Not Available [facility] [address] [place], [address] 10/26/2021 17:17:12 10/26/19 22 10/26/2021 COMPR EHENS MACIE MET. PANEL globulin 2.7 gm/dL 2.0-3. 5 normal Not Available [facility] [address] [place], [address] 10/26/2021 17:17:12 10/26/19 22 10/26/2021 COMPR EHENS MACIE MET. PANEL albumin globulin ratio 1.6 % 1.1-2. 5 normal Not Available [facility] [address] [place], [address] 10/26/2021 17:17:12 10/26/19 22 10/26/2021 COMPR EHENS MACIE MET. PANEL alkaline phosphatase 60 U/L 40-129 normal Not Available [facility] Department [address] [place], [address] 10/26/2021 17:17:12 10/26/19 22 10/26/2021 LIPID PANEL WITH REFLE X triglyceride s w/ reflex LDL 208 mg/dL 30-150 high Refer ence Range s: <150 mg/dl Faby l 150-1 99 mg/dl Borde rline High 200-4 99 mg/dl High >500 mg/dl Very High Not Available [facility] [address] [place], [address] 10/26/2021 17:17:13 10/26/19 22 10/26/2021 LIPID PANEL WITH REFLE X cholesterol 148 mg/dL 100-20 0 normal Not Available [facility] [address] [place], [address] 10/26/2021 17:17:13 10/26/19 22 10/26/2021 LIPID PANEL [...] mg/dL Very high >190 mg/dL Not Available [facility] [address] [place], [address] 10/26/2021 17:17:13 10/26/19 22 10/26/2021 LIPID PANEL WITH REFLE X HDL cholesterol 37.9 mg/dL 40-60 low Major risk facto r for CHD: <40 mg/dL Negat macie risk facto r for CHD: >=60 mg/dL Not Available [facility] [address] [place], [address] 10/26/2021 17:17:13 10/26/19 22 10/26/2021 LIPID PANEL WITH REFLE X chol HDL ratio 3.91 Risk CHOL/ HDL CHOL/ HDL Ratio Male Femal e 1/2 AVERA GE 3.43 3.27 AVERA GE 4.97 4.44 2 X AVERA GE 9.55 7.05 3 X AVERA GE 23.39 11.04 Not Available [facility] [address] [place], [address] 10/26/2021 17:17:13 12/06/1912/05/2021 URINE CULTU RE results ----- ----- ----- [...] ----- -- PATIE NT: Nancy Wilcox ACCT: [id number] LOC: HE.DO Sahu U: [id number] AGE/S X: 51/M ROOM: RE12/[address]: Aurelia carver : 05/27 BED: DIS: STATU S: DEP CLI TLOC: ----- ----- ----- ----- ----- ----- ----- ----- ----- ----- ----- ----- ----- ----- ----- ----- ----- ----- -- SPEC #: [id number] LUCRECIA: 12/05-U NK STATU S: COMP REQ #: [id number] RECD: 12/05- [address]: Aurelia Barber [facility] E: Caleb mullen ENTR: 12/05- [address]: Alina ENG C: LAURA ED: Urine Cultu re ACT WKST: CULT 12/07 #1 ----- ----- ----- ----- ----- ----- ----- ----- ----- ----- ----- ----- ----- ----- ----- ----- ----- ----- -- Proce dure Resul t ----- ----- ----- ----- ----- ----- ----- ----- ----- ----- ----- ----- ----- ----- ----- ----- ----- ----- -- Urine Cultu re Final Colon y Count : <1,00 0 col/m L No Growt h ----- ----- ----- ----- ----- ----- ----- ----- ----- ----- ----- ----- ----- ----- ----- ----- ----- ----- -- END OF REPOR T Not Available [facility] [address] [facility], [place], [address] 12/07/2021 10:17:56 12/06/19 22 12/05/2021 urina lysis , dipst ick SPECIFIC GRAVITY 1.010 Not Available [facility] ([facility]) [address] [place], [address], 12/05/2021 08:06:56 12/06/19 22 12/05/2021 urina lysis , dipst ick PH 7.0 Not Available [facility] ([facility]) [address] [place], [address], 12/05/2021 08:06:56 12/06/19 22 12/05/2021 urina lysis , dipst ick LEUKOCYTES Neg Not Available [facility] ([facility]) [address] [place], [address], 12/05/2021 08:06:56 12/06/19 22 12/05/2021 urina lysis , dipst ick NITRITE Neg Not Available [facility] ([facility]) [address] [place], [address], 12/05/2021 08:06:56 12/06/19 22 12/05/2021 urina lysis , dipst ick PROTEIN Neg Not Available [facility] ([facility]) [address] [place], [address], 12/05/2021 08:06:56 12/06/19 22 12/05/2021 urina lysis , dipst ick GLUCOSE Neg Not Available [facility] ([facility]) [address] [place], [address], 12/05/2021 08:06:56 12/06/19 22 12/05/2021 urina lysis , dipst ick KETONE Neg Not Available [facility] ([facility]) [address], [place], [address], 12/05/2021 08:06:56 12/06/19 22 12/05/2021 urina lysis , dipst ick UROBILINOGEN Normal Not Available [facility] ([facility]) [address] [place], [address], 12/05/2021 08:06:56 12/06/19 22 12/05/2021 urina lysis , dipst ick BILIRUBIN Neg Not Available [facility] ([facility]) [address] [place], [address], 12/05/2021 08:06:56 12/06/19 22 12/05/2021 urina lysis , dipst ick BLOOD Neg Not Available [facility] ([facility]) [address] [place], [address], 12/05/2021 08:06:56 12/07/19 22 12/06/2021 , [facility] [address] [facility] [place] [address] Ultras ound Report Signed Patien t: Sarabjit Castelan MR#: [id number] : 1969 Acct:H [id number] Age/Se x: 51 / M ADM Date: Loc: [facility] RA Attend ing Dr: Disha lilly MD Orderi ng Physic kei: Disha lilly Date of Servic e: Proced ure(s) : US renal BI Access ion Number (s): [id number] H cc: Disha lilly EXAM: US renal [...] Transc riptio nist: [email or web address] [facility] [address] [place] [address], [address], 12/08/2021 08:15:53 Result Notes None recorded. Problems Name Problem SNOMED Code Status Onset Date Resolution Date Notes Provider Name and Address Organization Details Recorded Time Benign essential hypertensi on 6843084 Active 2019 Not Available [facility] 0 23:48:14 Hematemesi s 2591080 Active 2019 Carlton Hamilton MD [address] [place], [place] [address], [address] , [facility] 17:09:26 COVID-19 743811985 Active 2020 Disha Callejas MD [address] [place] [address] [place], [address] , [facility] 15:39:26 Atrial fibrillati on 64000641 Active 2020 Disha Callejas MD [address] [place], [place] [address], [address] , [facility] 15:46:00 Glaucoma 97192415 Active 2020 Disha Callejas MD [address] [place], [place] [address], [address] , [facility] 15:46:06 Prediabete s 895389964 Active 2020 Disha Callejas MD [address] [place], [place] [address], [address] , [facility] 15:46:07 Nodule of lung 664900214 Active 2020 Disha Callejas MD [address] [place], [place] [address], [address] , [facility] 15:46:15 History of myocardial infarction 284814088 Active 2020 Disha Callejas MD [address] [place] [address], [address] , [facility] 2 09:04:19 Left ventricula r hypertroph y 35169055 Active 2020 Disha Callejas MD [address] [place], [place] [address], [address] , [facility] 15:46:39 Erectile dysfunctio n 936517638 Active 2020 Disha Callejas MD [address] [place], [place] [address], [address] , [facility] 15:46:55 History of SARS-CoV-2 8747643276891 11437 Active 2020 AURY Ballesteros, [facility] 2 11:01:47 Myocardial infarction 06186860 Active 2021 Leora Castaneda RN, BSN [facility] 08:51:03 Problem Notes None recorded. Procedures Surgical History Date Name Laterality Status Provider Name and Address Organization Details Recorded Time 12/07/19 22 Nutrition completed Monica Ferrara, MS, RDN, LDN [address] [place], [address], [facility] 12/29/2021 11:49:46 10/26/19 22 PHQ-9 Patient Health Questionnaire completed Disha Callejas MD [address] [place], [address], [facility] 10/26/2021 11:40:38 06/16/20 20 PHQ-9 Patient Health Questionnaire completed Disha Callejas MD [address] [place] [address], [address], [facility] 06/16/2020 09:15:13 10/07/19 20 colonoscopy completed Disha Callejas MD [address] [place], [address], [facility] 06/16/2020 08:45:24 partial nephrectomy completed Disha Callejas MD [address] [place] [address], [address], [facility] 04/07/2020 09:27:15 Imaging Results None recorded. Procedure Notes None recorded. Medical Equipment None [...] blood by Pulse oximetry Heart rate Systolic And Diastolic Systolic And Diastolic Provider Name and Address Organization Details Last Updated DateTime 187.96 cm 34 kg/m2 765611. 98 g 95 % 95 % 71 /min 128/100 mm[Hg] 130/102 mm[Hg] [facility] 11:05:16 Date Recorded Body height Body mass index (BMI) Body weight Heart rate Systolic And Diastolic Provider Name and Address Organization Details Last Updated DateTime 12/05/2021 187.96 cm 33.5 kg/m2 351644.6 1 g 64 /min 124/84 mm[Hg] Yandy Irizarry CMA [facility] 12/05/2021 07:47:48 Date Recorded Body height Body mass index (BMI) Body weight Provider Name and Address Organization Details Last Updated DateTime 12/06/2021 187.96 cm 33.4 kg/m2 665206.02 g Monica Ferrara, MS, RDN, LDN [address] [place], [address], [facility] 12/06/2021 09:26:01 Date Recorded Body height Body mass index (BMI) Body weight Heart rate Oxygen saturation Oxygen saturation in Arterial blood by Pulse oximetry Systolic And Diastolic Provider Name and Address Organization Details Last Updated DateTime 2 187.96 cm 33.7 kg/m2 019487 g 64 /min 98 % 98 % 123/82 mm[Hg] TAYLOR Escalera [facility] 2 12:22:10 Date Recorded Systolic And Diastolic Provider Name and Address Organization Details Last Updated DateTime 08/02/2021 132/84 mm[Hg] Disha Callejas MD [address] [place], [address], [facility] 08/02/2021 15:47:45 Date Recorded Body height Body mass index (BMI) Body weight Heart rate Oxygen saturation Oxygen saturation in Arterial blood by Pulse oximetry Systolic And Diastolic Provider Name and Address Organization Details Last Updated DateTime 187.96 cm 32.6 kg/m2 938970. 46 g 67 /min 97 % 97 % 138/92 mm[Hg] Ken Weldon MA [facility] 15:15:44 Social History Question Answer Notes LastModified by Organizat ion Details LastModified Time Tobacco Smoking Status Never Smoker Disha Callejas MD [address] [facility] [place] [address], [facility] 04/07/2020 09:18:54 How Much Tobacco Do You [...] Of Your Most Recent Tobacco Screening? 10/26/2021 Information not available 10/26/2021 How Many Children Do You Have? 4 Information not available 04/07/2020 What Is Your Relationship Status? [email or web address] Information not available 08/01/2021 Sex: Unknown Functional Status Question Answer Note LastModified by Organizat ion Details LastModified Time Do you use any illicit or recreational drugs? No [email or web address] Information not available 08/01/2021 What is your [...] Time zoster recombinant 0 completed AURY Ballesteros [facility] 08/01/2021 15:38:02 COVID-19, mRNA, LNP-S, PF, 30 mcg/0.3 mL dose 1 completed Disha Callejas MD [address] [place] [address] [place], [address], [facility] 10/26/2021 11:31:11 COVID-19, mRNA, LNP-S, PF, 30 mcg/0.3 mL dose 1 completed Disha Callejas MD [address] [place] [address] [place], [address], [facility] 10/26/2021 11:31:11 Influenza, split virus, quadrivalent, PF 8 completed Disha Callejas MD [address] [place] [address] [place], [address], [facility] 10/26/2021 11:31:11 Influenza, split virus, trivalent, preservative 4 completed Disha Callejas MD [address] [place] [address] [place], [address], [facility] 10/26/2021 11:31:11 Influenza, split virus, trivalent, preservative 7 completed Disha Callejas MD [address] [place] [address], [place], [address], [facility] 10/26/2021 11:31:11 Influenza, split virus, quadrivalent, PF 1 completed Disha Callejas MD [address] [place] [address] [place], [address], [facility] 10/26/2021 11:31:11 Influenza, split virus, quadrivalent, PF 0 completed Disha Callejas MD [address] [place] [address] [place], [address], [facility] 10/26/2021 11:31:11 Influenza, split virus, trivalent, preservative 1 completed Disha Callejas MD [address] [place] [address] [place], [address], [facility] 10/26/2021 11:31:11 pneumococcal polysaccharide PPV23 1 completed Disha Callejas MD [address] [place] [address] [place], [address], [facility] 10/26/2021 11:31:11 Influenza, split virus, trivalent, preservative 5 completed Disha Callejas MD [address] [place] [address] [place], [address], [facility] 10/26/2021 11:31:11 Influenza, split virus, trivalent, preservative 2 completed Disha Callejas MD [address] [place] [address] [place], [address], [facility] 10/26/2021 11:31:11 Influenza, split virus, trivalent, preservative 6 completed Disha Callejas MD [address] [place] [address] [place], [address], [facility] 10/26/2021 11:31:11 Influenza, split virus, trivalent, preservative 3 completed Disha Callejas MD [address] [place], [address], [facility] 10/26/2021 11:31:11 Td (adult), 2 Lf tetanus toxoid, preservative free, adsorbed 1 completed Disha Callejas MD [address] [place], [address], [facility] 10/26/2021 11:31:11 Tdap 0 completed Yandy Irizarry CMA [facility], [facility] 06/16/2020 09:19:12 Past Encounters Encounter ID Performer Location Encounter Start Date Encounter Closed Date Diagnosis/Indication Diagnosis SNOMED-CT Code Diagnosis ICD10 Code Diagnosis Note [id number] Disha Callejas MD [address] [address] 04/07/2020 09:07:08 04/07/2020 09:33:17 Benign essential hypertension 9796753 I10 Patient has a history of hypertensi on for which he has been taking amlodipine 5mg and lisinopril 40mg daily. His blood pressure is currently well controlled . He will continue current medication s which were prescribed today. He will follow-up in 2 months for a physical. Glaucoma 11466334 H40.9 Patient has a history of glaucoma for which he uses eye drops. He has no refills at this time, but has an appointmen t scheduled with an eye doctor next month. Gastroesop hageal reflux disease 886080037 K21.9 Patient has a history of GERD for which he has been taking omeprazole 20mg daily. He notes that while he was in intermediate, he got a colonoscop y and was supposed to get an endoscopy as he intermitte ntly has been spitting up blood. GI referral placed and omeprazole refilled. History of malignant neoplasm of kidney 101622378 Z85.528 Patient has a history of a renal tumor which was removed in 2013. He has not had significan t follow-up since then. Recommende d nephrology evaluation . Referral placed. [id number] Disha Callejas MD [facility] [address] [place] [address] 06/16/2020 08:29:53 06/16/2020 09:11:41 Adult health examination 720097022 Z00.00 Patient should discuss medical decisions with Health Care Proxy. Recommende d screenings included colonoscop y screening age 50, earlier based on family history/ri sk factors; one time screen for hepatitis C if born between 6373-3072 or has risk factors. Reviewed vaccines and current recommenda tions. Basic health topics include aerobic exercise, importance of healthy/ba lanced diet and minimizing caffeine and alcohol. Administra tion of diphtheria, pertussis, and tetanus vaccine 885873531 Z23 Patient due for Tdap vaccinatio n. Administer ed today. Screening for malignant neoplasm of colon 762465369 Z12.11 Patient reports a colonoscop y in September of 2019 while he was in intermediate. No records available, but states he has a history of polyps. Will plan for follow-up colonoscop y in 3-5 years. Varicella vaccination 68 499293 Z23 Patient due for shingles vaccinatio n. Prescribed to his pharmacy. Benign ess ential hypertension 9565373 I10 Patient has a history of hypertensi on for which he has been taking amlodipine 5mg and lisinopril 40mg daily. His blood pressure is currently well controlled . He will continue current medication s which were prescribed today. He will follow-up in 2 months for a physical. At [facility] risk of sexually transmitted infection 506881632 Z20.2 Patient was recently in intermediate and would like to be tested for STDs. Blood and urine obtained for testing today. Hyperlipid emia screening 804158317 Z13.220 Patient due for hyperlipid emia screening. Lipid panel obtained today. Large prostate [id number] N40.0 Patient has a slightly enlarged prostate on examinatio n. Will check PSA today. Impotence of organic origin [id number] N52.9 Patient has been struggling with getting and maintainin g an erection. Discussed risks and benefits of medication . Prescribed sildenafil 50mg daily as needed. Patient will follow-up if not improving. Hemorrhoids [id number] K64 .9 Patient has internal hemorrhoid s which are causing him pressure and discomfort . Prescribed hydrocorti sone cream to use topically and help his symptoms. [id number] Carlton Hamilton MD [facility] [address] [place] [address] [address] [place] [address] 07/18/2020 16:45:30 07/18/2020 17:23:52 Hematemesis [id number] K92.0 A few episodes of bringing up blood (he thinks from the stomach) in Aug and wishes an EGD. No melena. No other red flag ROS. On PRN omeprazole for occasional upper GI ROS. S/p distant treated H.Pylori without check of eradicatio n. Family his tory of cancer of colon [id number] Z80.0 Father History of polyp of colon 362960300 Z86.010 On prior colons [id number] Donna Segal MD [facility] [address] [place] [phone] 07/31/2020 14:46:41 07/31/2020 14:47:09 Viral screening [id number] Z11.59 [id number] Vlad Escalera NP [facility] use [address] [address] 09/19/2020 12:23:54 09/19/2020 12:48:00 Onychomycosis due to dermatophyte [id number] B35.1 Patient educated about onychomyco sis and that the process to treat this can take some time. Patient will start on medication as directed and is aware of the side effects. Patient will follow up if no improvemen t after 1 month. If no improvemen t then try oral medication . Patient can call with any concerns. History of myocardial infarction [id number] I25.2 Patient stated he had a heart attack back in 2016 and had a pain a couple months ago which scared him. Patient hasn't had pain since. Patient would like a referral to cardiology . [id number] Donna Segal MD [facility] [address] [place] [phone] 10/07/2020 16:21:41 10/07/2020 16:22:35 Viral screening [id number] Z11.59 [id number] Disha Callejas MD [facility] use [address] [phone] 08/02/2021 15:02:27 08/02/2021 16:13:54 COVID-19 [id number] U07.1 Estefania was hospitaliz ed from 07/14/21-1 at [facility] for COVID-19 infection and pneumonia. He was treated with remdesivir and ceftriazon e/azithrom ycin. He is feeling much better, but continues to have a slight cough and some fatigue. Encouraged patient to work on rebuilding his stamina and use honey or cough drops to help with his cough. Patient will follow-up as needed. Prediabetes [id number] R7 3.03 Patient has a history of prediabete s. He would like to see a nutritioni st, referral placed. Benign ess ential hypertension 3748810 I10 Patient has a history of hypertensi on for which he has been taking chlorthali done 12.5mg daily and lisinopril 40mg daily. His blood pressure is currently well controlled . He will continue current medication s which were prescribed today. He will follow-up in 2 months or earlier as needed. [id number] Disha Callejas MD [address] [phone] 10/26/2021 10:51:54 10/26/2021 11:39:09 Adult health examination [id number] Z00.01 Patient should discuss medical decisions with Health Care Proxy. Recommende d screenings included colonoscop y screening age 50, earlier based on family history/ri sk factors; one time screen for hepatitis C if born between 0603-0517 or has risk factors. Reviewed vaccines and current recommenda tions. Basic health topics include aerobic exercise, importance of healthy/ba lanced diet and minimizing caffeine and alcohol. Administra tion of diphtheria, pertussis, and tetanus vaccine [id number] Z23 Patient is up to date, received TDAP in 2020. Screening for malignant neoplasm of colon 844788078 Z12.11 Patient reports a colonoscop y in September of 2019 while he was in intermediate. No records available, but states he has a history of polyps. Will plan for follow-up colonoscop y in 3-5 years. Viral screening [id number] 4 Z11.59 Non-reacti ve screening in 2020. Varicella vaccination 68 924944 Z23 Patient due for shingles vaccinatio n. Prescribed to his pharmacy. Benign ess ential hypertension [id number] I10 Patient has a history of hypertensi [...] controlled with emtoprolol succinate 50mg daily. Prediabetes 239651893 R7 3.03 Patient has a history of prediabete s. Will check blood work today. Nodule of lung 741664262 R91.1 Patient was found to have a mass in his right lung. He is seeing pulmonolog y at [facility] and has had follow-up scans which demonstrat ed no growth of the area. 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 He is now having right flank pain which he states as the same as prior to his partial nephrectom y. Will obtain an ultrasound to evaluate the remaining kidney. Hematemesis 5766987 K92. 0 Patient has a history of coughing up blood and hematemesi s (although has not vomited recently). He has had evaluation s of his lungs and is interested in an endoscopy to check his esophagus. Referral placed to GI. [id number] Caryn Jauregui NP [address] [phone] 12/05/2021 07:39:05 12/05/2021 08:06:25 Left lower quadrant pain [id number] R10.32 He states he has been having [...] states he had a colonoscop y in 2020 that showed diverticul osis. UA in office [...] with no improvemen t in symptoms. Diverticulitis 714766566 K57.92 Patient noted with left lower quadrant [...] or with no improvemen t in symptoms. [id number] Monica Ferrara MS, RDN, LDN [facility] [address] [place] [phone] 12/06/2021 08:04:43 12/06/2021 10:40:31 Prediabetes 734584501 R73.03 Summary of Visit:Gi saavedra is a 51 year old primarily Maldivian speaking male referred for prediabete s. Jyoti [...] food groups/lis ts- What Can I Eat? Maldivian handout- Healthy Snack Maldivian handout- Healthy Plate Maldivian handout Educator Assessed Learning Barriers: language barrier [id number] Vlad Escalera NP [facility] [address] [place] [phone] 01/04/2022 12:15:26 01/04/2022 12:39:32 Arthritis of left knee [id number] M13.862 Suspected arthritis along with meniscus wear [...] Girard Member ID Guarantor Name 08/02/2021 1 [place]ai Herrera [id number] Jai Javier 10/31/2022 1 [facility] - HEALTH NET PLAN (MEDICAID HMO) [id number] Jai Javier [id number] Jai Javier 08/02/2021 2 [place] [facility] Jai Herrera [id number] Jai Herrera Notes Date Note Type Note Provider Name and Address Organization Details Recorded Time 08/02/2021 text/html Patient is a 51 year old male who presents today for a hospital follow-up. He was hospitalized from 07/14/21-07/18/21 for COVID. He was hospitalized at [facility]. He got antibiotics (ceftriaxone and azithromycin for pneumonia) and remdesivir while he was hospitalized. He is feeling much better since he got out of the hospital. Disha Callejas MD [address] [place] [address], [phone], [facility] 08/02/2021 15:50:26 10/26/2021 text/html Patient [...] prior to having surgery. Disha Callejas MD [address] [place] [address], [phone], [facility] 10/26/2021 11:40:45 12/05/2021 text/html Patient [...] 2019 that showed diverticulosis. 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 Social Support:Primary Support Person: self, GFLiving Arrangements: lives with GF Previous Diet Education/Training:Pr evious Visit with Dietitian: none Meals and Dining:Meals per day:Snacks per day:Skips meals:Recent dietary changes: eating less latelySpecial diets in the past:Food Allergy or intolerances: none reportedPrimary Mushroom Cutter: usually ptPrimary Food Frame And Scrap Crusher:bothDining Out frequency: 1x per weekAlcohol Intake: noneSupplements: Diet recall:- Breakfast: sandwich w/ 1 slice ham and 1 slice cheese, 2 eggs, on potato bread- Lunch: chicken with niuean fries OR empanadas OR sometimes mixed veggies [...] me Monica Ferrara, MS, RDN, LDN [address] [place], [phone], [facility] 12/29/2021 12:04:04 01/04/2022 text/html Patient is a [...] numbness, tingling or swelling. Disha Callejas MD [address] [place] [address], [place], [phone], [facility] 01/04/2022 16:38:41
--- OUTSIDE RECORDS SUMMARY | 2025-03-29 14:05 | XMS_ITS | Encounter Summary ---
Author Organization [employer] Address [address] [place] [address] Care Team Providers Care Sociology Teacher Name Role Phone Kathy Hair MD Primary Care Provide r Reason for Visit * Reason Onset Date Comments Hospital Follow-up 03/29/2025 Encounter Details Date Type Department Care Team (Late st Contact Info) Description 03/29/2025 Telephone [facility] [address], [place] [phone] Kathy Hair MD [address] [place], [place] [phone] Hospital Follow-up Social History Tobacco Use Types Packs/Day Years [...] encounter Miscellaneous Notes * Telephone Encounter - Elizabeth Segovia - 03/29/2025 11:43 AM EDT Tc from pt requesting a F appt. Hospital: [facility] Date of admission: 03/08 Discharge date: 03/25 Diagnosed: Diverticulitis *Send message to [facility] Clinical Care Coordinators Contact pt at [phone] Number pt call [phone] documented in this encounter Plan of Treatment Upcoming Encounters Date Type Department Care Team (Late st Contact Info) Description 04/14/2025 9:30 AM EDT Office Visit [facility] [address] [place] [address] Kathy Hair MD [address] [place] [address] 04/23/2025 11:00 AM EDT Office Visit [facility] [address] [place] [address] Kathy Hair MD [address] [place] [address] documented as of this encounter Visit Diagnoses Not on filedocumented in this encounter Additional Health Concerns Assessment Noted Time PHQ-9 Depression Total Score: 0 09/15/20 10:07 AM EST documented as of this encounter Care Teams Sociology Teacher Relationship Specialty Start Date End Date Kathy Hair MD [address] [place] [address] PCP - General Internal Medicine 09/15/24 documented as of this encounter
--- OUTSIDE RECORDS SUMMARY | 2025-03-29 14:05 | XMS_ITS | Referral Summary ---
Author Organization [facility] Address [address] [place] [address] Care Team Providers Care Health Education Specialist Name Role Phone Disha Callejas MD Primary [...] 57 07/19/2021 8:37 AM EDT Temperature 36.5 C (97.7 F) 07/19/2021 8:37 AM EDT Respiratory Rate 20 07/19/2021 8:37 AM EDT Oxygen Saturation 93% 07/19/2021 8:39 AM EDT Inhaled Oxygen Concentration - - Weight 116.1 kg (256 lb) 07/14/2021 5:33 PM EDT Height 182.9 cm (6') 07/14/2021 5:33 PM EDT Body Mass Index 34.72 07/14/2021 5:33 PM EDT Plan of Treatment Not on file Procedures * Due to [place] Var[place] law, this organization might not be sharing negative HIV tests. Procedure Name Priority Date/Time Associated Diagnosis Comments COMPREHENSIVE METABOLIC PANEL Routine 07/19/2021 2:56 AM EDT from Last 3 Months or Most Recently Relevant to Health Maintenance Results * Due to [place] Var[place] law, this organization might not be sharing negative HIV tests. * (ABNORMAL) Comprehensive Metabolic Panel (07/19/2021 2:56 AM EDT) NA 136 135 - 145 mmol/L 07/19/2021 3:39 AM EDT [facility] K 3.9 3.5 - 5.3 mmol/L 07/19/2021 3:39 AM EDT [facility] Cl 103 97 - 110 mmol/L 07/19/2021 3:39 AM EDT [facility] CO2 25 24 - 32 mmol/L 07/19/2021 3:39 AM EDT [facility] Anion Gap 8 5 - 15 07/19/2021 3:39 AM EDT [facility] Glucose 138(H) 70 - 99 mg/dL 07/19/2021 3:39 AM EDT [facility] Creatinine 0.99 0.60 - 1.30 mg/dL 07/19/2021 3:39 AM EDT [facility] eGFR Non- 88(L) >=90 mL/min/BS A 07/19/2021 3:39 AM EDT [facility] eGFR >90 >=90 mL/min/BS A 07/19/2021 3:39 AM EDT [facility] Comment: Units = mL/min/1.73 m2 Glomerular Filtration Rate (GFR) is estimated based on the CKD-EPI Creatinine Equation (2009). Stage Description GFR 1 Normal >=90 mL/min/BSA 2 Mildly decreased GFR 60-89 mL/min/BSA 3 Moderately decreased GFR 30-59 mL/min/BSA 4 Severely decreased GFR 15-29 mL/min/BSA 5 Kidney Failure <15 mL/min/BSA Calcium 8.7 8.7 - 10.7 mg/dL 07/19/2021 3:39 AM EDT [facility] Total Protein 7.3 6.0 - 8.0 g/dL 07/19/2021 3:39 AM EDT [facility] Albumin 3.5 3.5 - 4.8 g/dL 07/19/2021 3:39 AM EDT [facility] Bilirubin, Total 0.2(L) 0.3 - 1.2 mg/dL 07/19/2021 3:39 AM EDT [facility] Alkaline Phosphatase 46 30 - 115 U/L 07/19/2021 3:39 AM EDT [facility] AST 13 10 - 40 U/L 07/19/2021 3:39 AM EDT [facility] ALT 16 10 - 40 U/L 07/19/2021 3:39 AM EDT [facility] BUN 29(H) 7 - 23 mg/dL 07/19/2021 3:39 AM EDT [facility] Blood Structure of peripheral vein / Unknown Venipuncture / Unknown 07/19/2021 2:56 AM EDT 07/19/2021 3:09 AM EDT us Marietta Wilhelm NP LAB BLOOD ORDERABLES Final Result [facility] [address] [place] [address], from Last 3 Months or Most Recently Relevant to Health Maintenance Insurance [employer] Advance Directives * Full Code (Latest Code Status on File) Date Activated Date Inactivated Comments 07/15/2021 3:20 AM 07/19/2021 5:11 PM Care Teams Health Education Specialist Relationship Specialty Start Date End Date Disha Callejas MD PCP - General Family Medicine 04/27/20
== END 2025-03-29 13:54 | disposition home or self-care (01) ==
LOC: HO.HGS 13:36
PROVIDERS: PCP Internal Medicine
DX: Z93.3 Colostomy status (principal); S31.109D Unspecified open wound of abdominal wall, unspecified quadrant without penetration into peritoneal cavity, subsequent encounter; A49.8 Other bacterial infections of unspecified site
CPT/HCPCS: 99024

== ENCOUNTER → 2025-03-29 13:36 | Outpatient (BNVA) | payer MEDICAID, SELFPAY | PROVIDERS: PCP Internal Medicine | DX: S31.109D Unspecified open wound of abdominal wall, unspecified quadrant without penetration into peritoneal cavity, subsequent encounter (principal); Z93.3 Colostomy status; A49.8 Other bacterial infections of unspecified site | CPT/HCPCS: 99212 ==

== ENCOUNTER 2025-04-02 12:55 | Outpatient (AMB) | payer MEDICAID, SELFPAY ==
--- OUTSIDE RECORDS SUMMARY | 2025-04-02 12:58 | XMS_ITS | Encounter Summary ---
Author Organization [employer] Address [address] [place] [address] Care Team Providers Care Fruit Loader Machine Operator Name Role Phone Kathy Hair MD Primary Care Provide r Reason for Visit * Reason Onset Date Comments Hospital Follow-up 03/29/2025 Encounter Details Date Type Department Care Team (Late st Contact Info) Description 03/29/2025 Telephone [facility] [address] [place], [place] [phone] Kathy Hair MD [address] [place], [place] [phone] Hospital Follow-up Social History Tobacco Use Types [...] from pt requesting a F appt. Hospital: [facility] Date of admission: 03/08 Discharge date: 03/25 Diagnosed: Diverticulitis *Send message to [place] Clinical Care Coordinators Contact pt at [phone] Number pt call [phone] documented in this encounter Plan of Treatment Upcoming Encounters Date Type Department Care Team (Late st Contact Info) Description 04/14/2025 9:30 AM EDT Office Visit [facility] [address] [place] [address] Kathy Hair MD [address] [place] [address] 04/23/2025 11:00 AM EDT Office Visit [facility] [address] [place] [address] Kathy Hair MD [address] [place] [phone] documented as of this encounter Visit Diagnoses Not on filedocumented in this encounter Additional Health Concerns Assessment Noted Time PHQ-9 Depression Total Score: 0 09/15/20 10:07 AM EST documented as of this encounter Care Teams Fruit Loader Machine Operator Relationship Specialty Start Date End Date Kathy Hair MD [address] [place] [address] PCP - General Internal Medicine 09/15/24 documented as of this encounter
--- OUTSIDE RECORDS SUMMARY | 2025-04-02 12:58 | XMS_ITS | Data Portability ---
Author Organization [place] - [facility] Address [address] [place] [address] Care Team Providers Care Rubber Block Layer Name Role Phone DISHA CALLEJAS Primary Care Provider [phone] DISHA CALLEJAS Referring Provider [phone] Assessment No assessment recorded. Plan of Treatment Reminders Order Date Submit Date Provider Last Modified By Organization Details Last Modified Time Details Appointments None recorded. Lab urinalysis, dipstick [address] ([facility]), 16 [facility] Dylan, [place], [address], 08:13:50 culture, urine 2021 [facility] Patient Reg, [address] [place] [address], [address], 10:17:56 HbA1c (hemoglobin A1c), blood 2021 022 [email or web address] [facility] Patient Reg, [address] [place] [address], [address], 10:40:35 CMP, serum or plasma 2021 022 [facility] Patient Reg, [address] [place] [address], [address], 17:17:13 lipid panel, serum 2021 [facility] Patient Reg, [address] [place] [address], [address], 17:17:14 Referral gastroenter ologist referral [email or web address] [place] [address] - Gi, [address] [facility], [address], [place], [address], 2 08:26:45 nutritionis t/dietitian referral 2020 [email or web address] [place] [address] (Nutrition Services), [address] [place], [address], 2 15:42:35 Procedures None recorded. Surgeries None recorded. Imaging US, kidney - right kidney 2021 022 [facility] (Central Scheduling), [address] [place], [address], 08:54:00 Medication Orders diclofenac 1 % topical gel 2021 022 [facility]/Pharmacy #[id number], [address] [place], [place], [id number], 2 12:33:58 metronidazo le 500 mg tablet [address]/Pharmacy #[id number], [address] [place], [place], [id number], 2 13:50:46 Cipro 500 mg tablet [address]/Pharmacy #[id number], [address] [place], [place], [id number], 13:50:40 Patient Targets Encounter Date Encounter Id Patient Goals Patient Target Last Modified By Organization Details Last Modified Time 12/06/2021 [id number] Goals: 1. Promote weight loss of 1# per week. 2. Promote BGlu management with HbA1C <5.7% 3. Promote lipid panel WNL. 4. Promote regular physical activity. Not available 12/29/2021 11:18:47 Patient Instructions Encounter Date Encounter Id Patient Instructions Last Modified By Organization Details Last Modified Time 12/06/2021 [id number] 2 month f/u or sooner if needed [...] Not available 12/06/2021 10:28:42 Reason for Referral Buyer Assistant/dietitian Refer ral for Prediabetes Referring Physician: Disha Callejas [facility] Medicine, Encounter Date: 08/02/2021 Warehouse Clerk Referral for Hematemesis Referring Physician: Disha Callejas [facility] Medicine, Encounter Date: 10/26/2021 Results Created Date [...] Consi stent with Diabe ras Not Available [facility] Laboratory Department [address] [place], [address] 10/26/2021 16:50:52 10/26/1910/26/2021 COMPR EHENS MACIE MET. PANEL sodium 136 mmol/ L 136-14 5 normal Not Available [facility] Laboratory Department [address] [place], [address] 10/26/2021 17:17:12 10/26/1910/26/2021 COMPR EHENS MACIE MET. PANEL potassium 4.0 mmol/ L 3.5-5. 1 normal Not Available [facility] Laboratory Department [address] [place], [address] 10/26/2021 17:17:12 10/26/19 22 10/26/2021 COMPR EHENS MACIE MET. PANEL chloride 100 mmol/ L 98-107 normal Not Available [facility] Laboratory Department [address] [place], [address] 10/26/2021 17:17:12 10/26/19 22 10/26/2021 COMPR EHENS MACIE MET. PANEL carbon dioxide 25.3 mmol/ L 22-29 normal Not Available [facility] Laboratory Department [address] [place] [address], [address] 10/26/2021 17:17:12 10/26/19 22 10/26/2021 COMPR EHENS MACIE MET. PANEL anion gap 15 mmol/ L 10-20 normal Not Available [facility] Laboratory Department [address] [place] [address], [address] 10/26/2021 17:17:12 10/26/19 22 10/26/2021 COMPR EHENS MACIE MET. PANEL blood urea nitrogen 16 mg/dL 6-20 normal Not Available [facility] Laboratory Department [address] [place], [address] 10/26/2021 17:17:12 10/26/19 22 10/26/2021 COMPR EHENS MACIE MET. PANEL creatinine 0.79 mg/dL 0.70-1 .2 normal Not Available [facility] Laboratory Department [address] [place] [address], [address] 10/26/2021 17:17:12 10/26/19 22 10/26/2021 COMPR EHENS [...] under the age of 18 Not Available [facility] Laboratory Department [address] [place], [address] 10/26/2021 17:17:12 10/26/19 22 10/26/2021 COMPR EHENS MACIE MET. PANEL glucose 116 mg/dL 70-106 high Not Available [facility] Laboratory Department [address] [place], [address] 10/26/2021 17:17:12 10/26/19 22 10/26/2021 COMPR EHENS MACIE MET. PANEL calcium 9.4 mg/dL 8.6-10 .3 normal Not Available [facility] Laboratory Department [address] [place], [address] 10/26/2021 17:17:12 10/26/19 22 10/26/2021 COMPR EHENS MACIE MET. PANEL bilirubin total 0.4 mg/dL 0.2-1. 2 normal Not Available [facility] Laboratory Department [address] [place], [address] 10/26/2021 17:17:12 10/26/19 22 10/26/2021 COMPR EHENS MACIE MET. PANEL aspartate amino transferase 23 U/L 5-40 normal Not Available [facility] Laboratory Department [address] [place], [address] 10/26/2021 17:17:12 10/26/19 22 10/26/2021 COMPR EHENS MACIE MET. PANEL alanine aminotransfe rase 27 U/L 5-41 normal Not Available [facility] Laboratory Department [address] [place], [address] 10/26/2021 17:17:12 10/26/19 22 10/26/2021 COMPR EHENS MACIE MET. PANEL total protein 7.1 g/dL 6.4-8. 3 normal Not Available [facility] Laboratory Department [address] [place], [address] 10/26/2021 17:17:12 10/26/19 22 10/26/2021 COMPR EHENS MACIE MET. PANEL albumin level 4.4 g/dL 3.5-5. 2 normal Not Available [facility] Laboratory Department [address] [place], [address] 10/26/2021 17:17:12 10/26/19 22 10/26/2021 COMPR EHENS MACIE MET. PANEL globulin 2.7 gm/dL 2.0-3. 5 normal Not Available [facility] Laboratory Department [address] [place], [address] 10/26/2021 17:17:12 10/26/19 22 10/26/2021 COMPR EHENS MACIE MET. PANEL albumin globulin ratio 1.6 % 1.1-2. 5 normal Not Available [facility] Laboratory Department [address] [place], [address] 10/26/2021 17:17:12 10/26/19 22 10/26/2021 COMPR EHENS MACIE MET. PANEL alkaline phosphatase 60 U/L 40-129 normal Not Available [facility] Laboratory Department [address] [place], [address] 10/26/2021 17:17:12 10/26/19 22 10/26/2021 LIPID PANEL WITH REFLE X triglyceride s w/ reflex LDL 208 mg/dL 30-150 high Refer ence Range s: <150 mg/dl Faby l 150-1 99 mg/dl Borde rline High 200-4 99 mg/dl High >500 mg/dl Very High Not Available [facility] Laboratory Department [address] [place], [address] 10/26/2021 17:17:13 10/26/19 22 10/26/2021 LIPID PANEL WITH REFLE X cholesterol 148 mg/dL 100-20 0 normal Not Available [facility] Laboratory Department [address] [place], [address] 10/26/2021 17:17:13 10/26/19 22 10/26/2021 LIPID PANEL [...] mg/dL Very high >190 mg/dL Not Available [facility] Laboratory Department [address] [place], [address] 10/26/2021 17:17:13 10/26/19 22 10/26/2021 LIPID PANEL WITH REFLE X HDL cholesterol 37.9 mg/dL 40-60 low Major risk facto r for CHD: <40 mg/dL Negat macie risk facto r for CHD: >=60 mg/dL Not Available [facility] Laboratory Department [address] [place], [address] 10/26/2021 17:17:13 10/26/19 22 10/26/2021 LIPID PANEL WITH REFLE X chol HDL ratio 3.91 Risk CHOL/ HDL CHOL/ HDL Ratio Male Femal e 1/2 AVERA GE 3.43 3.27 AVERA GE 4.97 4.44 2 X AVERA GE 9.55 7.05 3 X AVERA GE 23.39 11.04 Not Available [facility] Laboratory Department [address] [place], [address] 10/26/2021 17:17:13 12/06/1912/05/2021 URINE CULTU RE results [...] ----- -- PATIE NT: Nancy Wilcox ACCT: [id number] LOC: HE.DO Sahu U: [id number] AGE/S X: 51/M ROOM: RE12/[address]: Aurelia carver : 05/27 BED: DIS: STATU S: DEP CLI TLOC: ----- ----- ----- ----- ----- ----- ----- ----- ----- ----- ----- ----- ----- ----- ----- ----- ----- ----- -- SPEC #: [id number] LUCRECIA: 12/05-U NK STATU S: COMP REQ #: [id number] RECD: 12/05- [address]: Aurelia Barber [facility] E: Caleb mullen ENTR: 12/05- 751 OTHR [...] -- END OF REPOR T Not Available [facility] Laboratory Department [address] [facility], [place], [address] 12/07/2021 10:17:56 12/06/19 22 12/05/2021 urina lysis , dipst ick SPECIFIC GRAVITY 1.010 Not Available [facility] ([facility]) [address] [place], [address], 12/05/2021 08:06:56 12/06/19 22 12/05/2021 urina lysis , dipst ick PH 7.0 Not Available [facility] ([facility]) [address] [place], [address], 12/05/2021 08:06:56 12/06/19 22 12/05/2021 urina lysis , dipst ick LEUKOCYTES Neg Not Available [facility] ([facility]) [address] [place], [address], 12/05/2021 08:06:56 12/06/19 22 12/05/2021 urina lysis , dipst ick NITRITE Neg Not Available [facility] ([facility]) [address] [place], [address], 12/05/2021 08:06:56 12/06/19 22 12/05/2021 urina lysis , dipst ick PROTEIN Neg Not Available [facility] ([facility]) [address] [place], [address], 12/05/2021 08:06:56 12/06/19 22 12/05/2021 urina lysis , dipst ick GLUCOSE Neg Not Available [facility] ([facility]) [address] [place], [address], 12/05/2021 08:06:56 12/06/19 22 12/05/2021 urina lysis , dipst ick KETONE Neg Not Available [facility] ([facility]) [address], [place], [address], 12/05/2021 08:06:56 12/06/19 22 12/05/2021 urina lysis , dipst ick UROBILINOGEN Normal Not Available [facility] ([facility]) [address] [place], [address], 12/05/2021 08:06:56 12/06/19 22 12/05/2021 urina lysis , dipst ick BILIRUBIN Neg Not Available [facility] ([facility]) [address] [place], [address], 12/05/2021 08:06:56 12/06/19 22 12/05/2021 urina lysis , dipst ick BLOOD Neg Not Available [facility] ([facility]) [address] [place], [address], 12/05/2021 08:06:56 12/07/19 22 12/06/2021 , [facility] [address] [facility] [place] [address] Ultras ound Report Signed Patien t: Sarabjit Castelan MR#: [id number] : [id number] Acct:H [id number] Age/Se x: 51 / M ADM Date: Loc: [facility] RA Attend ing Dr: Disha lilly MD Orderi ng Physic kei: Disha lilly Date of Servic e: Proced ure(s) : US renal BI Access ion Number (s): [id number] H cc: Disha lilly EXAM: US renal [...] Transc riptio nist: [email or web address] [facility] [address] [place] [address], [address], 12/08/2021 08:15:53 Result Notes None recorded. Problems Name Problem SNOMED Code Status Onset Date Resolution Date Notes Provider Name and Address Organization Details Recorded Time Benign essential hypertensi on 2230313 Active 2019 Not Available [facility] 0 23:48:14 Hematemesi s 8953009 Active 2019 Carlton Hamilton MD [address] [place], [place] [address], [address] , [facility] 0 17:09:26 COVID-19 542988688 Active 2020 Disha Callejas MD [address] [place] [address] [place], [address] , [facility] 15:39:26 Atrial fibrillati on 11726192 Active 2020 Disha Callejas MD [address] [place], [place] [address], [address] , [facility] 15:46:00 Glaucoma 10288545 Active 2020 Disha Callejas MD [address] [place], [place] [address], [address] , [facility] 15:46:06 Prediabete s 864511223 Active 2020 Disha Callejas MD [address] [place], [place] [address], [address] , [facility] 15:46:07 Nodule of lung 964504456 Active 2020 Disha Callejas MD [address] [place], [place] [address], [address] , [facility] 15:46:15 History of myocardial infarction 293417587 Active 2020 Disha Callejas MD [address] [place] [address], [address] , [facility] 2 09:04:19 Left ventricula r hypertroph y 72488433 Active 2020 Disha Callejas MD [address] [place], [place] [address], [address] , [facility] 15:46:39 Erectile dysfunctio n 697500283 Active 2020 Disha Callejas MD [address] [place], [place] [address], [address] , [facility] 15:46:55 History of SARS-CoV-2 [id number] 86950 Active 2020 AURY Ballesteros, [facility] 2 11:01:47 Myocardial infarction 29477758 Active 2021 Leora Castaneda RN, BSN [facility] 08:51:03 Problem Notes None recorded. Procedures Surgical History Date Name Laterality Status Provider Name and Address Organization Details Recorded Time 12/07/19 22 Nutrition completed Monica Ferrara, MS, RDN, LDN [address] [place], [address], [facility] 12/29/2021 11:49:46 10/26/19 22 PHQ-9 Patient Health Questionnaire completed Disha Callejas MD [address] [place], [address], [facility] 10/26/2021 11:40:38 06/16/20 20 PHQ-9 Patient Health Questionnaire completed Disha Callejas MD [address] [place] [address], [address], [facility] 06/16/2020 09:15:13 10/07/19 20 colonoscopy completed Disha Callejas MD [address] [place], [address], [facility] 06/16/2020 08:45:24 partial nephrectomy completed Disha Callejas MD [address] [place] [address], [address], [facility] 04/07/2020 09:27:15 Imaging Results None recorded. Procedure [...] Last Updated DateTime 187.96 cm 34 kg/m2 887809. 98 g 95 % 95 % 71 /min 128/100 mm[Hg] 130/102 mm[Hg] Catherine [facility] 11:05:16 Date Recorded Body height Body mass index (BMI) Body weight Heart rate Systolic And Diastolic Provider Name and Address Organization Details Last Updated DateTime 12/05/2021 187.96 cm 33.5 kg/m2 811286.6 1 g 64 /min 124/84 mm[Hg] Yandy Irizarry CMA [facility] 12/05/2021 07:47:48 Date Recorded Body height Body mass index (BMI) Body weight Provider Name and Address Organization Details Last Updated DateTime 12/06/2021 187.96 cm 33.4 kg/m2 944512.02 g Monica Ferrara, MS, RDN, LDN [address] [place], [address], [facility] 12/06/2021 09:26:01 Date Recorded Body height Body mass index (BMI) Body weight Heart rate Oxygen saturation Oxygen saturation in Arterial blood by Pulse oximetry Systolic And Diastolic Provider Name and Address Organization Details Last Updated DateTime 2 187.96 cm 33.7 kg/m2 529414 g 64 /min 98 % 98 % 123/82 mm[Hg] TAYLOR Escalera [facility] 2 12:22:10 Date Recorded Systolic And Diastolic Provider Name and Address Organization Details Last Updated DateTime 08/02/2021 132/84 mm[Hg] Disha Callejas MD [address] [place], [address], [facility] 08/02/2021 15:47:45 Date Recorded Body height Body mass index (BMI) Body weight Heart rate Oxygen saturation Oxygen saturation in Arterial blood by Pulse oximetry Systolic And Diastolic Provider Name and Address Organization Details Last Updated DateTime 187.96 cm 32.6 kg/m2 642994. 46 g 67 /min 97 % 97 % 138/92 mm[Hg] Ken Weldon MA [facility] 15:15:44 Social History Question Answer Notes LastModified by Organizat ion Details LastModified Time Tobacco Smoking Status Never Smoker Disha Callejas MD [address] [facility] [place], [address], [facility] 04/07/2020 09:18:54 How Much Tobacco Do You Chew? None Information not available 04/07/2020 Which Illicit Or Recreational Drugs Have You Used? Denies Information not available 04/07/2020 Hepatitis C Screen 06/16/2020 Nonreactive Information not available 06/17/2020 Tobacco Use (smoking, Smokeless Tobacco) No Information not available 04/07/2020 Date Of Tobacco Screen 08/01/2021 [email or web address] Information not available 08/01/2021 Members Of Household 1 Information not available 04/07/2020 Marital Status Informatio n not available 04/07/2020 What Was The Date Of Your Most Recent Tobacco Screening? 10/26/2021 [email or web address] Information not available 10/26/2021 How Many Children Do You Have? 4 Information not available 04/07/2020 What Is Your Relationship Status? Information not available 08/01/2021 Sex: Unknown Functional Status Question Answer Note LastModified by Organizat ion Details LastModified Time Do you use any illicit or recreational drugs? No Information not available 08/01/2021 What is your [...] Time zoster recombinant 0 completed AURY Ballesteros [facility] 08/01/2021 15:38:02 COVID-19, mRNA, LNP-S, PF, 30 mcg/0.3 mL dose 1 completed Disha Callejas MD [address] [place] [address] [place], [address], [facility] 10/26/2021 11:31:11 COVID-19, mRNA, LNP-S, PF, 30 mcg/0.3 mL dose 1 completed Disha Callejas MD [address] [place] [address] [place], [address], [facility] 10/26/2021 11:31:11 Influenza, split virus, quadrivalent, PF 8 completed Disha Callejas MD [address] [place] [address] [place], [address], [facility] 10/26/2021 11:31:11 Influenza, split virus, trivalent, preservative 4 completed Disha Callejas MD [address] [place] [address] [place], [address], [facility] 10/26/2021 11:31:11 Influenza, split virus, trivalent, preservative 7 completed Disha Callejas MD [address] [place] [address], [place], [address], [facility] 10/26/2021 11:31:11 Influenza, split virus, quadrivalent, PF 1 completed Disha Callejas MD [address] [place] [address] [place], [address], [facility] 10/26/2021 11:31:11 Influenza, split virus, quadrivalent, PF 0 completed Disha Callejas MD [address] [place] [address] [place], [address], [facility] 10/26/2021 11:31:11 Influenza, split virus, trivalent, preservative 1 completed Disha Callejas MD [address] [place] [address] [place], [address], [facility] 10/26/2021 11:31:11 pneumococcal polysaccharide PPV23 1 completed Disha Callejas MD [address] [place] [address] [place], [address], [facility] 10/26/2021 11:31:11 Influenza, split virus, trivalent, preservative 5 completed Disha Callejas MD [address] [place] [address] [place], [address], [facility] 10/26/2021 11:31:11 Influenza, split virus, trivalent, preservative 2 completed Disha Callejas MD [address] [place] [address] [place], [address], [facility] 10/26/2021 11:31:11 Influenza, split virus, trivalent, preservative 6 completed Disha Callejas MD [address] [place] [address] [place], [address], [facility] 10/26/2021 11:31:11 Influenza, split virus, trivalent, preservative 3 completed Disha Callejas MD [address] [place], [address], [facility] 10/26/2021 11:31:11 Td (adult), 2 Lf tetanus toxoid, preservative free, adsorbed 1 completed Disha Callejas MD [address] [place], [address], [facility] 10/26/2021 11:31:11 Tdap 0 completed Yandy Irizarry CMA [facility], [facility] 06/16/2020 09:19:12 Past Encounters Encounter ID Performer Location Encounter Start Date Encounter Closed Date Diagnosis/Indication Diagnosis SNOMED-CT Code Diagnosis ICD10 Code Diagnosis Note [id number] Disha Callejas MD [address] [address] 04/07/2020 09:07:08 04/07/2020 09:33:17 Benign essential hypertension 5852610 I10 Patient has a history of hypertensi on for which he has been taking amlodipine 5mg and lisinopril 40mg daily. His blood pressure is currently well controlled . He will continue current medication s which were prescribed today. He will follow-up in 2 months for a physical. Glaucoma 49773245 H40.9 Patient has a history of glaucoma for which he uses eye drops. He has no refills at this time, but has an appointmen t scheduled with an eye doctor next month. Gastroesop hageal reflux disease 093637767 K21.9 Patient has a history of GERD for which he has been taking omeprazole 20mg daily. He notes that while he was in senior care, he got a colonoscop y and was supposed to get an endoscopy as he intermitte ntly has been spitting up blood. GI referral placed and omeprazole refilled. History of malignant neoplasm of kidney 610226270 Z85.528 Patient has a history of a renal tumor which was removed in 2013. He has not had significan t follow-up since then. Recommende d nephrology evaluation . Referral placed. [id number] Disha Callejas MD [facility] [address] [place] [address] 06/16/2020 08:29:53 06/16/2020 09:11:41 Adult health examination 778721714 Z00.00 Patient should discuss medical decisions with Health Care Proxy. Recommende d screenings included colonoscop y screening age 50, earlier based on family history/ri sk factors; one time screen for hepatitis C if born between 0222-7860 or has risk factors. Reviewed vaccines and current recommenda tions. Basic health topics include aerobic exercise, importance of healthy/ba lanced diet and minimizing caffeine and alcohol. Administra tion of diphtheria, pertussis, and tetanus vaccine 048901572 Z23 Patient due for Tdap vaccinatio n. Administer ed today. Screening for malignant neoplasm of colon 077623230 Z12.11 Patient reports a colonoscop y in September of 2019 while he was in senior care. No records available, but states he has a history of polyps. Will plan for follow-up colonoscop y in 3-5 years. Varicella vaccination 68 109114 Z23 Patient due for shingles vaccinatio n. Prescribed to his pharmacy. Benign ess ential hypertension 4864019 I10 Patient has a history of hypertensi on for which he has been taking amlodipine 5mg and lisinopril 40mg daily. His blood pressure is currently well controlled . He will continue current medication s which were prescribed today. He will follow-up in 2 months for a physical. [facility] risk of sexually transmitted infection 491527679 Z20.2 Patient was recently in senior care and would like to be tested for STDs. Blood and urine obtained for testing today. Hyperlipid emia screening 776993669 Z13.220 Patient due for hyperlipid emia screening. Lipid panel obtained today. Large prostate 411429407 N40.0 Patient has a slightly enlarged prostate on examinatio n. Will check PSA today. Impotence of organic origin 400631470 N52.9 Patient has been struggling with getting and maintainin g an erection. Discussed risks and benefits of medication . Prescribed sildenafil 50mg daily as needed. Patient will follow-up if not improving. Hemorrhoids 74964515 K64 .9 Patient has internal hemorrhoid s which are causing him pressure and discomfort . Prescribed hydrocorti sone cream to use topically and help his symptoms. [id number] Carlton Hamilton MD [facility] [address] [place] [address] [address] [place] [address] 07/18/2020 16:45:30 07/18/2020 17:23:52 Hematemesis [id number] K92.0 A few episodes of bringing up blood (he thinks from the stomach) in Aug and wishes an EGD. No melena. No other red flag ROS. On PRN omeprazole for occasional upper GI ROS. S/p distant treated H.Pylori without check of eradicatio n. Family his tory of cancer of colon [id number] Z80.0 Father History of polyp of colon [id number] Z86.010 On prior colons [id number] Donna Segal MD [facility] [address] [place] [phone] 07/31/2020 14:46:41 07/31/2020 14:47:09 Viral screening [id number] Z11.59 [id number] Vlad Escalera NP [facility] use [address] [phone] 09/19/2020 12:23:54 09/19/2020 12:48:00 Onychomycosis due to dermatophyte [id number] B35.1 Patient educated about onychomyco sis and that the process to treat this can take some time. Patient will start on medication as directed and is aware of the side effects. Patient will follow up if no improvemen t after 1 month. If no improvemen t then try oral medication . Patient can call with any concerns. History of myocardial infarction [id number] I25.2 Patient stated he had a heart attack back in 2016 and had a pain a couple months ago which scared him. Patient hasn't had pain since. Patient would like a referral to cardiology . [id number] Donna Segal MD [facility] [address] [place] [phone] 10/07/2020 16:21:41 10/07/2020 16:22:35 Viral screening [id number] Z11.59 [id number] Disha Callejas MD [facility] use [address] [phone] 08/02/2021 15:02:27 08/02/2021 16:13:54 COVID-19 [id number] U07.1 Estefania was hospitaliz ed from 07/14/21-1 at [facility] for COVID-19 infection and pneumonia. He was treated with remdesivir and ceftriazon e/azithrom ycin. He is feeling much better, but continues to have a slight cough and some fatigue. Encouraged patient to work on rebuilding his stamina and use honey or cough drops to help with his cough. Patient will follow-up as needed. Prediabetes [id number] R7 3.03 Patient has a history of prediabete s. He would like to see a nutritioni st, referral placed. Benign ess ential hypertension 2966109 I10 Patient has a history of hypertensi on for which he has been taking chlorthali done 12.5mg daily and lisinopril 40mg daily. His blood pressure is currently well controlled . He will continue current medication s which were prescribed today. He will follow-up in 2 months or earlier as needed. [id number] Disha Callejas MD [address] [phone] 10/26/2021 10:51:54 10/26/2021 11:39:09 Adult health examination [id number] Z00.01 Patient should discuss medical decisions with Health Care Proxy. Recommende d screenings included colonoscop y screening age 50, earlier based on family history/ri sk factors; one time screen for hepatitis C if born between 9223-4312 or has risk factors. Reviewed vaccines and current recommenda tions. Basic health topics include aerobic exercise, importance of healthy/ba lanced diet and minimizing caffeine and alcohol. Administra tion of diphtheria, pertussis, and tetanus vaccine [id number] Z23 Patient is up to date, received TDAP in 2020. Screening for malignant neoplasm of colon 507980552 Z12.11 Patient reports a colonoscop y in September of 2019 while he was in senior care. No records available, but states he has a history of polyps. Will plan for follow-up colonoscop y in 3-5 years. Viral screening 01153368 4 Z11.59 Non-reacti ve screening in 2020. Varicella vaccination 68 753849 Z23 Patient due for shingles vaccinatio n. Prescribed to his pharmacy. Benign ess ential hypertension 2632838 I10 Patient has a history of hypertensi [...] controlled with emtoprolol succinate 50mg daily. Prediabetes 709572830 R7 3.03 Patient has a history of prediabete s. Will check blood work today. Nodule of lung 437769725 R91.1 Patient was found to have a mass in his right lung. He is seeing pulmonolog y at [facility] and has had follow-up scans which demonstrat ed no growth of the area. History of partial nephrectomy 421042664 Z90.5 Patient has a history of a partial nephrectom y for a mass on the kidney years ago. He is now having right flank pain which he states as the same as prior to his partial nephrectom y. Will obtain an ultrasound to evaluate the remaining kidney. Hematemesis [id number] K92. 0 Patient has a history of coughing up blood and hematemesi s (although has not vomited recently). He has had evaluation s of his lungs and is interested in an endoscopy to check his esophagus. Referral placed to GI. [id number] Caryn Jauregui NP [address] [phone] 12/05/2021 07:39:05 12/05/2021 08:06:25 Left lower quadrant pain 178012721 R10.32 He states he has been having [...] with no improvemen t in symptoms. Diverticulitis 554997092 K57.92 Patient noted with left lower quadrant [...] or with no improvemen t in symptoms. [id number] Monica Ferrara MS, RDN, LDN [facility] [address] [place] [phone] 12/06/2021 08:04:43 12/06/2021 10:40:31 Prediabetes 765125329 R73.03 Summary of Visit:Gi saavedra is a 51 year old primarily [place] speaking male referred for prediabete s. Jyoti [...] food groups/lis ts- What Can I Eat? [place] handout- Healthy Snack [place] handout- Healthy Plate [place] handout Educator Assessed Learning Barriers: language barrier [id number] Vlad Escalera NP [facility] [address] [place] [phone] 01/04/2022 12:15:26 01/04/2022 12:39:32 Arthritis of left knee [id number] M13.862 Suspected arthritis along with meniscus wear [...] Girard Member ID Guarantor Name 08/02/2021 1 [place] [id number] Jai Javier 10/31/[address] [facility] - HEALTH NET PLAN (MEDICAID HMO) [id number] Jai Javier [id number] Jai Javier 08/02/2021 2 [place] [facility] Jai Herrera [id number] Jai Herrera Notes Date Note Type Note Provider Name and Address Organization Details Recorded Time 08/02/2021 text/html Patient is a 51 year old male who presents today for a hospital follow-up. He was hospitalized from 07/14/21-07/18/21 for COVID. He was hospitalized at [facility]. He got antibiotics (ceftriaxone and azithromycin for pneumonia) and remdesivir while he was hospitalized. He is feeling much better since he got out of the hospital. Disha Callejas MD [address] [place] [address], [phone], [facility] 08/02/2021 15:50:26 10/26/2021 text/html Patient is [...] prior to having surgery. Disha Callejas MD [address] [place] [address], [phone], [facility] 10/26/2021 11:40:45 12/05/2021 text/html Patient is [...] 2019 that showed diverticulosis. 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 Social Support:Primary Support Person: self, GFLiving Arrangements: lives with GF Previous Diet Education/Training:Pr evious Visit with Dietitian: none Meals and Dining:Meals per day:Snacks per day:Skips meals:Recent dietary changes: eating less latelySpecial diets in the past:Food Allergy or intolerances: none reportedPrimary Postdoctoral Scholar: usually ptPrimary Food Rock Breaker:bothDining Out frequency: 1x per weekAlcohol Intake: noneSupplements: Diet recall:- Breakfast: sandwich w/ 1 slice ham and 1 slice cheese, 2 eggs, on potato bread- Lunch: chicken with bermudian fries OR empanadas OR sometimes mixed veggies [...] me Monica Ferrara, MS, RDN, LDN [address] [place], [phone], [facility] 12/29/2021 12:04:04 01/04/2022 text/html Patient is [...] numbness, tingling or swelling. Disha Callejas MD [address] [place] [address], [place], [phone], [facility] 01/04/2022 16:38:41
--- OUTSIDE RECORDS SUMMARY | 2025-04-02 12:58 | XMS_ITS | Referral Summary ---
Author Organization [facility] Address [address] [place] [address] Care Team Providers Care Multimedia Engineer Name Role Phone Disha Callejas MD Primary [...] Not on file Procedures * Due to [place] [employer] law, this organization might not be sharing negative HIV tests. Procedure Name Priority Date/Time Associated Diagnosis Comments COMPREHENSIVE METABOLIC PANEL Routine 07/19/2021 2:56 AM EDT from Last 3 Months or Most Recently Relevant to Health Maintenance Results * Due to [place] [employer] law, this organization might not be sharing negative HIV tests. * (ABNORMAL) Comprehensive Metabolic Panel (07/19/2021 2:56 AM EDT) NA 136 135 - 145 mmol/L 07/19/2021 3:39 AM EDT [facility] K 3.9 3.5 - 5.3 mmol/L 07/19/2021 3:39 AM EDT [facility] Cl 103 97 - 110 mmol/L 07/19/2021 3:39 AM EDT [facility] CO2 25 24 - 32 mmol/L 07/19/2021 3:39 AM EDT [facility] Anion Gap 8 5 - 15 07/19/2021 3:39 AM EDT [facility] Glucose 138(H) 70 - 99 mg/dL 07/19/2021 3:39 AM EDT [facility] Creatinine 0.99 0.60 - 1.30 mg/dL 07/19/2021 3:39 AM EDT [facility] eGFR Non- 88(L) >=90 mL/min/BS A 07/19/2021 3:39 AM EDT [facility] eGFR >90 >=90 mL/min/BS A 07/19/2021 3:39 AM EDT [facility] Comment: Units = mL/min/1.73 m2 Glomerular Filtration Rate (GFR) is estimated based on the CKD-EPI Creatinine Equation (2009). Stage Description GFR 1 Normal >=90 mL/min/BSA 2 Mildly decreased GFR 60-89 mL/min/BSA 3 Moderately decreased GFR 30-59 mL/min/BSA 4 Severely decreased GFR 15-29 mL/min/BSA 5 Kidney Failure <15 mL/min/BSA Calcium 8.7 8.7 - 10.7 mg/dL 07/19/2021 3:39 AM EDT [facility] Total Protein 7.3 6.0 - 8.0 g/dL 07/19/2021 3:39 AM EDT [facility] Albumin 3.5 3.5 - 4.8 g/dL 07/19/2021 3:39 AM EDT [facility] Bilirubin, Total 0.2(L) 0.3 - 1.2 mg/dL 07/19/2021 3:39 AM EDT [facility] Alkaline Phosphatase 46 30 - 115 U/L 07/19/2021 3:39 AM EDT [facility] AST 13 10 - 40 U/L 07/19/2021 3:39 AM EDT [facility] ALT 16 10 - 40 U/L 07/19/2021 3:39 AM EDT [facility] BUN 29(H) 7 - 23 mg/dL 07/19/2021 3:39 AM EDT [facility] Blood Structure of peripheral vein / Unknown Venipuncture / Unknown 07/19/2021 2:56 AM EDT 07/19/2021 3:09 AM EDT us Marietta Wilhelm NP LAB BLOOD ORDERABLES Final Result [facility] [address] [place] [address], from Last 3 Months or Most Recently Relevant to Health Maintenance Insurance [employer] Advance Directives * Full Code (Latest Code Status on File) Date Activated Date Inactivated Comments 07/15/2021 3:20 AM 07/19/2021 5:11 PM Care Teams Multimedia Engineer Relationship Specialty Start Date End Date Disha Callejas MD PCP - General Family Medicine 04/27/20
--- NOTE | 2025-04-02 12:59 | MHC.OFFVIS ---
Intake Visit Reasons: wound check Intake Note: Patient is seen in office for wound check, post Exploratory laparotomy, Nick procedure. Pt c/o: here for wound check Bunch Breaker Machine Operator Required: No Accompanied by: Sister Allergies No Known Allergies Allergy (Mild, Verified 04/02/25 13:01) NONE HPI HPI wound check: Details: patient doing well. Saw VNA one time this week, they changed his bag and did a dressing change. he has been compliant with antibiotics. He still noted some greenish tint to the gauze when he chagnes the dressings. he denies pain, fever, chills. 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 There is about 4 cm of tracking superiorly and 2 cm inferiorly. minimal thin purulent discharge. much of the wound is granulation tissue. There are still a few staple on the superior aspect of the wound. Inspection: No distended Palpation (GI): Soft to palpation, nontender, no guarding and not rigid Neuro General: patient oriented x3 Assessment & Plan Assessment & Plan (1) Status post Nick procedure: Code(s): Z93.3 - Colostomy status Category: Surgical (2) Wound, open, abdominal wall, anterior: Code(s): S31.109A - Unspecified open wound of abdominal wall, unspecified quadrant without penetration into peritoneal cavity, initial encounter Category: Medical Qualifiers: Encounter type: subsequent encounter Qualified Code(s): S31.109D - Unspecified open wound of abdominal wall, unspecified quadrant without penetration into peritoneal cavity, subsequent encounter (3) Pseudomonas infection: Code(s): A49.8 - Other bacterial infections of unspecified site Category: Medical Plan 54-year-old male status post Nick's procedure on 03/09/2025 following up in the office for routine follow-up and wound check. Patient reports he has been doing pretty well, has been managing dressing changes at home well. VNA came earlier this week and helped him change his ostomy bag. Bowel function and appetite are at baseline. Ostomy continues to have good output. On exam, the patient's abdomen is soft and benign. The patient states he continues to have some light green staining to the dressings, concerning for Pseudomonas infection, he has been compliant with cipro. I was unable to appreciate any of this color due to a recent dressing change that he completed at home. There remains dung in the middle of the incision. Dressings were changed. Packing was placed into the superior aspect of the incision that tracks upwards about 4 cm to prevent this from closing off from the main portion of the wound. This packing was left intentionally very long and was wrapped in the gauze that was ultimately used for packing to ensure that it was not lost into the superior aspect of the wound. The primary aspect of the wound was packed with saline soaked gauze. This appears to have decreased in size since the patient was discharged the wound was further dressed with dry gauze and ABD pad on top covered with tape. Patient will continue with daily dressing changes. States VNA will come one more time. Patient will follow-up in the office on saturday for another wound check due to limited VNA visits. Patient will continue with activity limitations, no heavy lifting or strenuous activity. Coding Level of Care Code Global (54976) Diagnoses Status post Nick procedure Z93.3 Open wound of anterior abdominal wall, subsequent encounter S31.109D Encounter type: subsequent encounter Pseudomonas infection A49.8
== END 2025-04-02 13:27 | disposition home or self-care (01) ==
LOC: HO.HGS 12:55
PROVIDERS: PCP Internal Medicine
DX: Z93.3 Colostomy status (principal); S31.109D Unspecified open wound of abdominal wall, unspecified quadrant without penetration into peritoneal cavity, subsequent encounter; A49.8 Other bacterial infections of unspecified site
CPT/HCPCS: 99024

== ENCOUNTER → 2025-04-02 12:55 | Outpatient (BNVA) | payer MEDICAID, SELFPAY | PROVIDERS: PCP Internal Medicine | DX: Z93.3 Colostomy status (principal); A49.8 Other bacterial infections of unspecified site; S31.109D Unspecified open wound of abdominal wall, unspecified quadrant without penetration into peritoneal cavity, subsequent encounter | CPT/HCPCS: 99212 ==

== ENCOUNTER → 2025-04-07 10:41 | Outpatient (BNVA) | payer MEDICAID, SELFPAY | PROVIDERS: PCP Internal Medicine; Visit Provider Surgery | DX: Z48.00 Encounter for change or removal of nonsurgical wound dressing (principal) | CPT/HCPCS: 99211 ==

== ENCOUNTER 2025-04-09 11:45 | Outpatient (AMB) | payer OTHER, MEDICAID, SELFPAY ==
--- OUTSIDE RECORDS SUMMARY | 2025-04-09 12:02 | XMS_ITS | Data Portability ---
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 Plan of Treatment Reminders Order Date Submit Date Provider Last Modified By Organization Details Last Modified Time Details Appointments None recorded. Lab urinalysis, dipstick [address] ([facility]), 16 [facility] Dylan, [place], [address], 08:13:50 culture, urine 2021 [facility] Patient Reg, [address] [place] [address], [address], 10:17:56 HbA1c (hemoglobin A1c), blood 2021 022 [email or web address] [facility] Patient Reg, [address] [place] [address], [address], 10:40:35 CMP, serum or plasma 2021 022 [facility] Patient Reg, [address] [place] [address], [address], 17:17:13 lipid panel, serum 2021 [facility] Patient [facility], [address] [place] [address], [address], 17:17:14 Referral gastroenter ologist referral [email or web address] [place] [address] - Gi, [address] [facility], [address], [place], [address], 2 08:26:45 nutritionis t/dietitian referral 2020 [email or web address] [place] [address] (Nutrition Services), [address] [place], [address], 2 15:42:35 Procedures None recorded. Surgeries None recorded. Imaging US, kidney - right kidney 2021 022 [facility] (Central Scheduling), [address] [place], [address], 08:54:00 Medication Orders diclofenac 1 % topical gel [address] [facility]/Pharmacy #[id number], [address] [place], [place], [id number], 2 12:33:58 metronidazo le 500 mg tablet [address]/Pharmacy #[id number], [address] [place], [place], [id number], 2 13:50:46 Cipro 500 mg tablet [address]/Pharmacy #[id number], [address] [place], [place], [id number], 13:50:40 Patient Targets Encounter Date Encounter Id Patient Goals Patient Target Last Modified By Organization Details Last Modified Time 12/06/2021 [id number] Goals: 1. Promote weight loss of 1# per week. 2. Promote BGlu management with HbA1C <5.7% 3. Promote lipid panel WNL. 4. Promote regular physical activity. Not available 12/29/2021 11:18:47 Patient Instructions Encounter Date Encounter Id Patient Instructions Last Modified By Organization Details Last Modified Time 12/06/2021 [id number] 2 month f/u or sooner if needed [...] (1 eber n owen o). Agregue prote ejff, charli nueces, leche de lucia o huevos. [...] Not available 12/06/2021 10:28:42 Reason for Referral Charger Operator/dietitian Refer ral for Prediabetes Referring Physician: Disha Callejas [facility], Encounter Date: 08/02/2021 Field Human Resources Manager Referral for Hematemesis Referring Physician: Disha Callejas [facility], Encounter Date: 10/26/2021 Results Created [...] Consi stent with Diabe ras Not Available [facility] Laboratory Department [address] [place], [address] 10/26/2021 16:50:52 10/26/1910/26/2021 COMPR EHENS MACIE MET. PANEL sodium 136 mmol/ L 136-14 5 normal Not Available [facility] Laboratory Department [address] [place], [address] 10/26/2021 17:17:12 10/26/1910/26/2021 COMPR EHENS MACIE MET. PANEL potassium 4.0 mmol/ L 3.5-5. 1 normal Not Available [facility] Laboratory Department [address] [place], [address] 10/26/2021 17:17:12 10/26/19 22 10/26/2021 COMPR EHENS MACIE MET. PANEL chloride 100 mmol/ L 98-107 normal Not Available [facility] Laboratory Department [address] [place], [address] 10/26/2021 17:17:12 10/26/19 22 10/26/2021 COMPR EHENS MACIE MET. PANEL carbon dioxide 25.3 mmol/ L 22-29 normal Not Available [facility] Laboratory Department [address] [place] [address], [address] 10/26/2021 17:17:12 10/26/19 22 10/26/2021 COMPR EHENS MACIE MET. PANEL anion gap 15 mmol/ L 10-20 normal Not Available [facility] Laboratory Department [address] [place] [address], [address] 10/26/2021 17:17:12 10/26/19 22 10/26/2021 COMPR EHENS MACIE MET. PANEL blood urea nitrogen 16 mg/dL 6-20 normal Not Available [facility] Laboratory Department [address] [place], [address] 10/26/2021 17:17:12 10/26/19 22 10/26/2021 COMPR EHENS MACIE MET. PANEL creatinine 0.79 mg/dL 0.70-1 .2 normal Not Available [facility] Laboratory Department [address] [place] [address], [address] 10/26/2021 17:17:12 10/26/19 22 10/26/2021 COMPR EHENS [...] under the age of 18 Not Available [facility] Laboratory Department [address] [place], [address] 10/26/2021 17:17:12 10/26/19 22 10/26/2021 COMPR EHENS MACIE MET. PANEL glucose 116 mg/dL 70-106 high Not Available [facility] Laboratory Department [address] [place], [address] 10/26/2021 17:17:12 10/26/19 22 10/26/2021 COMPR EHENS MACIE MET. PANEL calcium 9.4 mg/dL 8.6-10 .3 normal Not Available [facility] Laboratory Department [address] [place], [address] 10/26/2021 17:17:12 10/26/19 22 10/26/2021 COMPR EHENS MACIE MET. PANEL bilirubin total 0.4 mg/dL 0.2-1. 2 normal Not Available [facility] Laboratory Department [address] [place], [address] 10/26/2021 17:17:12 10/26/19 22 10/26/2021 COMPR EHENS MACIE MET. PANEL aspartate amino transferase 23 U/L 5-40 normal Not Available [facility] Laboratory Department [address] [place], [address] 10/26/2021 17:17:12 10/26/19 22 10/26/2021 COMPR EHENS MACIE MET. PANEL alanine aminotransfe rase 27 U/L 5-41 normal Not Available [facility] Laboratory Department [address] [place], [address] 10/26/2021 17:17:12 10/26/19 22 10/26/2021 COMPR EHENS MACIE MET. PANEL total protein 7.1 g/dL 6.4-8. 3 normal Not Available [facility] Laboratory Department [address] [place], [address] 10/26/2021 17:17:12 10/26/19 22 10/26/2021 COMPR EHENS MACIE MET. PANEL albumin level 4.4 g/dL 3.5-5. 2 normal Not Available [facility] Laboratory Department [address] [place], [address] 10/26/2021 17:17:12 10/26/19 22 10/26/2021 COMPR EHENS MACIE MET. PANEL globulin 2.7 gm/dL 2.0-3. 5 normal Not Available [facility] Laboratory Department [address] [place], [address] 10/26/2021 17:17:12 10/26/19 22 10/26/2021 COMPR EHENS MACIE MET. PANEL albumin globulin ratio 1.6 % 1.1-2. 5 normal Not Available [facility] Laboratory Department [address] [place], [address] 10/26/2021 17:17:12 10/26/19 22 10/26/2021 COMPR EHENS MACIE MET. PANEL alkaline phosphatase 60 U/L 40-129 normal Not Available [facility] Laboratory Department [address] [place], [address] 10/26/2021 17:17:12 10/26/19 22 10/26/2021 LIPID PANEL WITH REFLE X triglyceride s w/ reflex LDL 208 mg/dL 30-150 high Refer ence Range s: <150 mg/dl Faby l 150-1 99 mg/dl Borde rline High 200-4 99 mg/dl High >500 mg/dl Very High Not Available [facility] Laboratory Department [address] [place], [address] 10/26/2021 17:17:13 10/26/19 22 10/26/2021 LIPID PANEL WITH REFLE X cholesterol 148 mg/dL 100-20 0 normal Not Available [facility] Laboratory Department [address] [place], [address] 10/26/2021 17:17:13 10/26/19 22 10/26/2021 LIPID PANEL [...] mg/dL Very high >190 mg/dL Not Available [facility] Laboratory Department [address] [place], [address] 10/26/2021 17:17:13 10/26/19 22 10/26/2021 LIPID PANEL WITH REFLE X HDL cholesterol 37.9 mg/dL 40-60 low Major risk facto r for CHD: <40 mg/dL Negat macie risk facto r for CHD: >=60 mg/dL Not Available [facility] Laboratory Department [address] [place], [address] 10/26/2021 17:17:13 10/26/19 22 10/26/2021 LIPID PANEL WITH REFLE X chol HDL ratio 3.91 Risk CHOL/ HDL CHOL/ HDL Ratio Male Femal e 1/2 AVERA GE 3.43 3.27 AVERA GE 4.97 4.44 2 X AVERA GE 9.55 7.05 3 X AVERA GE 23.39 11.04 Not Available [facility] Laboratory Department [address] [place], [address] 10/26/2021 17:17:13 12/06/1912/05/2021 URINE CULTU RE results [...] ----- -- PATIE NT: Nancy Wilcox ACCT: [id number] LOC: HE.DO Sahu U: [id number] AGE/S X: 51/M ROOM: RE12/[address]: Aurelia carver : 05/27 BED: DIS: STATU S: DEP CLI TLOC: ----- ----- ----- ----- ----- ----- ----- ----- ----- ----- ----- ----- ----- ----- ----- ----- ----- ----- -- SPEC #: [id number] LUCRECIA: 12/05-U NK STATU S: COMP REQ #: [id number] RECD: 12/05- [address]: Aurelia Barber [facility] E: Caleb mullen ENTR: 12/05- 751 OTHR [...] -- END OF REPOR T Not Available [facility] Laboratory Department [address] [facility], [place], [address] 12/07/2021 10:17:56 12/06/19 22 12/05/2021 urina lysis , dipst ick SPECIFIC GRAVITY 1.010 Not Available [facility] ([facility]) [address] [place], [address], 12/05/2021 08:06:56 12/06/19 22 12/05/2021 urina lysis , dipst ick PH 7.0 Not Available [facility] ([facility]) [address] [place], [address], 12/05/2021 08:06:56 12/06/19 22 12/05/2021 urina lysis , dipst ick LEUKOCYTES Neg Not Available [facility] ([facility]) [address] [place], [address], 12/05/2021 08:06:56 12/06/19 22 12/05/2021 urina lysis , dipst ick NITRITE Neg Not Available [facility] ([facility]) [address] [place], [address], 12/05/2021 08:06:56 12/06/19 22 12/05/2021 urina lysis , dipst ick PROTEIN Neg Not Available [facility] ([facility]) [address] [place], [address], 12/05/2021 08:06:56 12/06/19 22 12/05/2021 urina lysis , dipst ick GLUCOSE Neg Not Available [facility] ([facility]) [address] [place], [address], 12/05/2021 08:06:56 12/06/19 22 12/05/2021 urina lysis , dipst ick KETONE Neg Not Available [facility] ([facility]) [address], [place], [address], 12/05/2021 08:06:56 12/06/19 22 12/05/2021 urina lysis , dipst ick UROBILINOGEN Normal Not Available [facility] ([facility]) [address] [place], [address], 12/05/2021 08:06:56 12/06/19 22 12/05/2021 urina lysis , dipst ick BILIRUBIN Neg Not Available [facility] ([facility]) [address] [place], [address], 12/05/2021 08:06:56 12/06/19 22 12/05/2021 urina lysis , dipst ick BLOOD Neg Not Available [facility] ([facility]) [address] [place], [address], 12/05/2021 08:06:56 12/07/19 22 12/06/2021 , [facility] [address] [facility] [place] [address] Ultras ound Report Signed Patien t: Sarabjit Castelan MR#: [id number] : [id number] Acct:H [id number] Age/Se x: 51 / M ADM Date: Loc: [facility] RA Attend ing Dr: Disha lilly MD Orderi ng Physic kei: Disha lilly Date of Servic e: Proced ure(s) : US renal BI Access ion Number (s): [id number] H cc: Disha lilly EXAM: US renal [...] Transc riptio nist: [email or web address] [facility] [address] [place] [address], [address], 12/08/2021 08:15:53 Result Notes None recorded. Problems Name Problem SNOMED Code Status Onset Date Resolution Date Notes Provider Name and Address Organization Details Recorded Time Benign essential hypertensi on 0495395 Active 2019 Not Available [facility] 0 23:48:14 Hematemesi s 9751726 Active 2019 Carlton Hamilton MD [address] [place] [address], [address] , [facility] 0 17:09:26 History of SARS-CoV-2 7719959465381 08688 Active 2020 Catherine Ramirez CCM null, [facility] 2 11:01:47 COVID-19 906509883 Active 2020 Disha Callejas MD [address] [place], [address] , [facility] 15:39:26 Atrial fibrillati on 90979371 Active 2020 Disha Callejas MD [address] [place], [address] , [facility] 15:46:00 Glaucoma 87784281 Active 2020 Disha Callejas MD [address] [place], [address] , [facility] 15:46:06 Prediabete s 350125117 Active 2020 Disha Callejas MD [address] [place], [place] [address], [address] , [facility] 15:46:07 Nodule of lung 030077826 Active 2020 Disha Callejas MD [address] [place], [address] , [facility] 15:46:15 History of myocardial infarction 615177252 Active 2020 Disha Callejas MD [address] [place], [address] , [facility] 2 09:04:19 Left ventricula r hypertroph y 34703415 Active 2020 Disha Callejas MD [address] [place], [address] , [facility] 15:46:39 Erectile dysfunctio n 071742363 Active 2020 Disha Callejas MD [address] [place], [address] , [facility] 15:46:55 Myocardial infarction 39625284 Active 2021 Leora Castaneda RN, BSN [facility] 08:51:03 Problem Notes None recorded. Procedures Surgical History Date Name Laterality Status Provider Name and Address Organization Details Recorded Time 12/07/19 22 Nutrition completed Monica Ferrara, MS, RDN, LDN [address] [place], [address], [facility] 12/29/2021 11:49:46 10/26/19 22 PHQ-9 Patient Health Questionnaire completed Disha Callejas MD [address] [place], [address], [facility] 10/26/2021 11:40:38 06/16/20 20 PHQ-9 Patient Health Questionnaire completed Disha Callejas MD [address] [place] [address], [address], [facility] 06/16/2020 09:15:13 10/07/19 20 colonoscopy completed Disha Callejas MD [address] [place], [address], [facility] 06/16/2020 08:45:24 partial nephrectomy completed Disha Callejas MD [address] [place] [address], [address], [facility] 04/07/2020 09:27:15 Imaging Results None [...] Last Updated DateTime 187.96 cm 34 kg/m2 075402. 98 g 95 % 95 % 71 /min 128/100 mm[Hg] 130/102 mm[Hg] Catherine Ramirez [facility] 11:05:16 Date Recorded Body height Body mass index (BMI) Body weight Heart rate Systolic And Diastolic Provider Name and Address Organization Details Last Updated DateTime 12/05/2021 187.96 cm 33.5 kg/m2 349195.6 1 g 64 /min 124/84 mm[Hg] Yandy Irizarry CMA [facility] 12/05/2021 07:47:48 Date Recorded Body height Body mass index (BMI) Body weight Provider Name and Address Organization Details Last Updated DateTime 12/06/2021 187.96 cm 33.4 kg/m2 207983.02 g Monica Ferrara, MS, RDN, LDN [address] [place], [address], [facility] 12/06/2021 09:26:01 Date Recorded Body height Body mass index (BMI) Body weight Heart rate Oxygen saturation Oxygen saturation in Arterial blood by Pulse oximetry Systolic And Diastolic Provider Name and Address Organization Details Last Updated DateTime 2 187.96 cm 33.7 kg/m2 177201 g 64 /min 98 % 98 % 123/82 mm[Hg] TAYLOR Escalera [facility] 2 12:22:10 Date Recorded Systolic And Diastolic Provider Name and Address Organization Details Last Updated DateTime 08/02/2021 132/84 mm[Hg] Disha Callejas MD [address] [facility] [place], [address], [facility] 08/02/2021 15:47:45 Date Recorded Body height Body mass index (BMI) Body weight Heart rate Oxygen saturation Oxygen saturation in Arterial blood by Pulse oximetry Systolic And Diastolic Provider Name and Address Organization Details Last Updated DateTime 187.96 cm 32.6 kg/m2 741644. 46 g 67 /min 97 % 97 % 138/92 mm[Hg] Ken Weldon MA [facility] 15:15:44 Social History Question Answer Notes LastModified by Organizat ion Details LastModified Time Tobacco Smoking Status Never Smoker Disha Callejas MD [address] [facility] [place], [address], [facility] 04/07/2020 09:18:54 How Much Tobacco Do You Chew? None Information not available 04/07/2020 Which Illicit Or Recreational Drugs Have You Used? Denies Information not available 04/07/2020 Hepatitis C Screen 06/16/2020 Nonreactive Information not available 06/17/2020 Tobacco Use (smoking, Smokeless Tobacco) No Information not available 04/07/2020 Date Of Tobacco Screen 08/01/2021 [email or web address] Information not available 08/01/2021 Members Of Household 1 Information not available 04/07/2020 Marital Status Informatio n not available 04/07/2020 What Was The Date Of Your Most Recent Tobacco Screening? 10/26/2021 [email or web address] Information not available 10/26/2021 How Many Children Do You Have? 4 Information not available 04/07/2020 What Is Your Relationship Status? [email or web address] Information not available 08/01/2021 Sex: Unknown Functional Status Question Answer Note LastModified by Organizat ion Details LastModified Time Do you use any illicit or recreational drugs? No [email or web address] Information not available 08/01/2021 What is your [...] Time zoster recombinant 0 completed AURY Ballesteros [facility] 08/01/2021 15:38:02 COVID-19, mRNA, LNP-S, PF, 30 mcg/0.3 mL dose 1 completed Disha Callejas MD [address] [place] [address] [place], [address], [facility] 10/26/2021 11:31:11 COVID-19, mRNA, LNP-S, PF, 30 mcg/0.3 mL dose 1 completed Disha Callejas MD [address] [place] [address] [place], [address], [facility] 10/26/2021 11:31:11 Influenza, split virus, quadrivalent, PF 8 completed Disha Callejas MD [address] [place] [address] [place], [address], [facility] 10/26/2021 11:31:11 Influenza, split virus, trivalent, preservative 4 completed Disha Callejas MD [address] [place] [address] [place], [address], [facility] 10/26/2021 11:31:11 Influenza, split virus, trivalent, preservative 7 completed Disha Callejas MD [address] [place] [address], [place], [address], [facility] 10/26/2021 11:31:11 Influenza, split virus, quadrivalent, PF 1 completed Disha Callejas MD [address] [place] [address] [place], [address], [facility] 10/26/2021 11:31:11 Influenza, split virus, quadrivalent, PF 0 completed Disha Callejas MD [address] [place] [address] [place], [address], [facility] 10/26/2021 11:31:11 Influenza, split virus, trivalent, preservative 1 completed Disha Callejas MD [address] [place] [address] [place], [address], [facility] 10/26/2021 11:31:11 pneumococcal polysaccharide PPV23 1 completed Disha Callejas MD [address] [place] [address] [place], [address], [facility] 10/26/2021 11:31:11 Influenza, split virus, trivalent, preservative 5 completed Disha Callejas MD [address] [place] [address] [place], [address], [facility] 10/26/2021 11:31:11 Influenza, split virus, trivalent, preservative 2 completed Disha Callejas MD [address] [place] [address] [place], [address], [facility] 10/26/2021 11:31:11 Influenza, split virus, trivalent, preservative 6 completed Disha Callejas MD [address] [place] [address] [place], [address], [facility] 10/26/2021 11:31:11 Influenza, split virus, trivalent, preservative 3 completed Disha Callejas MD [address] [place], [address], [facility] 10/26/2021 11:31:11 Td (adult), 2 Lf tetanus toxoid, preservative free, adsorbed 1 completed Disha Callejas MD [address] [place], [address], [facility] 10/26/2021 11:31:11 Tdap 0 completed Ynady Irizarry CMA [facility], [facility] 06/16/2020 09:19:12 Past Encounters Encounter ID Performer Location Encounter Start Date Encounter Closed Date Diagnosis/Indication Diagnosis SNOMED-CT Code Diagnosis ICD10 Code Diagnosis Note [id number] Disha Callejas MD [address] [address] 04/07/2020 09:07:08 04/07/2020 09:33:17 Benign essential hypertension 0818772 I10 Patient has a history of hypertensi on for which he has been taking amlodipine 5mg and lisinopril 40mg daily. His blood pressure is currently well controlled . He will continue current medication s which were prescribed today. He will follow-up in 2 months for a physical. Glaucoma 58629217 H40.9 Patient has a history of glaucoma for which he uses eye drops. He has no refills at this time, but has an appointmen t scheduled with an eye doctor next month. Gastroesop hageal reflux disease 300969646 K21.9 Patient has a history of GERD for which he has been taking omeprazole 20mg daily. He notes that while he was in prison, he got a colonoscop y and was supposed to get an endoscopy as he intermitte ntly has been spitting up blood. GI referral placed and omeprazole refilled. History of malignant neoplasm of kidney 327084357 Z85.528 Patient has a history of a renal tumor which was removed in 2013. He has not had significan t follow-up since then. Recommende d nephrology evaluation . Referral placed. [id number] Disha Callejas MD [facility] [address] [place] [address] 06/16/2020 08:29:53 06/16/2020 09:11:41 Adult health examination 482963353 Z00.00 Patient should discuss medical decisions with Health Care Proxy. Recommende d screenings included colonoscop y screening age 50, earlier based on family history/ri sk factors; one time screen for hepatitis C if born between 8242[birth year]4175 or has risk factors. Reviewed vaccines and current recommenda tions. Basic health topics include aerobic exercise, importance of healthy/ba lanced diet and minimizing caffeine and alcohol. Administra tion of diphtheria, pertussis, and tetanus vaccine 378243340 Z23 Patient due for Tdap vaccinatio n. Administer ed today. Screening for malignant neoplasm of colon 965956023 Z12.11 Patient reports a colonoscop y in September of 2019 while he was in prison. No records available, but states he has a history of polyps. Will plan for follow-up colonoscop y in 3-5 years. Varicella vaccination 68 829592 Z23 Patient due for shingles vaccinatio n. Prescribed to his pharmacy. Benign ess ential hypertension 5421455 I10 Patient has a history of hypertensi on for which he has been taking amlodipine 5mg and lisinopril 40mg daily. His blood pressure is currently well controlled . He will continue current medication s which were prescribed today. He will follow-up in 2 months for a physical. At [facility] risk of sexually transmitted infection 111982300 Z20.2 Patient was recently in prison and would like to be tested for STDs. Blood and urine obtained for testing today. Hyperlipid emia screening 188194834 Z13.220 Patient due for hyperlipid emia screening. Lipid panel obtained today. Large prostate 518308423 N40.0 Patient has a slightly enlarged prostate on examinatio n. Will check PSA today. Impotence of organic origin 313598396 N52.9 Patient has been struggling with getting and maintainin g an erection. Discussed risks and benefits of medication . Prescribed sildenafil 50mg daily as needed. Patient will follow-up if not improving. Hemorrhoids 86864454 K64 .9 Patient has internal hemorrhoid s which are causing him pressure and discomfort . Prescribed hydrocorti sone cream to use topically and help his symptoms. [id number] Carlton Hamilton MD [facility] [address] [place] [address] [address] [place] [address] 07/18/2020 16:45:30 07/18/2020 17:23:52 Hematemesis 8344666 K92.0 A few episodes of bringing up blood (he thinks from the stomach) in Aug and wishes an EGD. No melena. No other red flag ROS. On PRN omeprazole for occasional upper GI ROS. S/p distant treated H.Pylori without check of eradicatio n. Family his tory of cancer of colon [id number] Z80.0 Father History of polyp of colon [id number] Z86.010 On prior colons [id number] Donna Segal MD [facility] [address] [place] [phone] 7 07/31/2020 14:46:41 07/31/2020 14:47:09 Viral screening [id number] Z11.59 [id number] Vlad Escalera NP [facility] use [address] [phone] 1 09/19/2020 12:23:54 09/19/2020 12:48:00 Onychomycosis due to dermatophyte [id number] B35.1 Patient educated about onychomyco sis and that the process to treat this can take some time. Patient will start on medication as directed and is aware of the side effects. Patient will follow up if no improvemen t after 1 month. If no improvemen t then try oral medication . Patient can call with any concerns. History of myocardial infarction [id number] I25.2 Patient stated he had a heart attack back in 2016 and had a pain a couple months ago which scared him. Patient hasn't had pain since. Patient would like a referral to cardiology . [id number] Donna Segal MD [facility] [address] [place] [phone] 10/07/2020 16:21:41 10/07/2020 16:22:35 Viral screening [id number] Z11.59 [id number] Disha Callejas MD [facility] use [address] [phone] 1 08/02/2021 15:02:27 08/02/2021 16:13:54 COVID-19 [id number] U07.1 Estefania was hospitaliz ed from 07/14/21-1 at [facility] for COVID-19 infection and pneumonia. He was treated with remdesivir and ceftriazon e/azithrom ycin. He is feeling much better, but continues to have a slight cough and some fatigue. Encouraged patient to work on rebuilding his stamina and use honey or cough drops to help with his cough. Patient will follow-up as needed. Prediabetes [id number] R7 3.03 Patient has a history of prediabete s. He would like to see a nutritioni st, referral placed. Benign ess ential hypertension [id number] I10 Patient has a history of hypertensi on for which he has been taking chlorthali done 12.5mg daily and lisinopril 40mg daily. His blood pressure is currently well controlled . He will continue current medication s which were prescribed today. He will follow-up in 2 months or earlier as needed. [id number] iDsha Callejas MD [address] [phone] 1 10/26/2021 10:51:54 10/26/2021 11:39:09 Adult health examination [id number] Z00.01 Patient should discuss medical decisions with Health Care Proxy. Recommende d screenings included colonoscop y screening age 50, earlier based on family history/ri sk factors; one time screen for hepatitis C if born between 4698-9316 or has risk factors. Reviewed vaccines and current recommenda tions. Basic health topics include aerobic exercise, importance of healthy/ba lanced diet and minimizing caffeine and alcohol. Administra tion of diphtheria, pertussis, and tetanus vaccine [id number] Z23 Patient is up to date, received TDAP in 2020. Screening for malignant neoplasm of colon [id number] Z12.11 Patient reports a colonoscop y in September of 2019 while he was in prison. No records available, but states he has a history of polyps. Will plan for follow-up colonoscop y in 3-5 years. Viral screening [id number] Z11.59 Non-reacti ve screening in 2020. Varicella vaccination [id number] Z23 Patient due for shingles vaccinatio n. Prescribed to his pharmacy. Benign ess ential hypertension 1603537 I10 Patient has a history of hypertensi [...] controlled with emtoprolol succinate 50mg daily. Prediabetes [id number] R7 3.03 Patient has a history of prediabete s. Will check blood work today. Nodule of lung 782225924 R91.1 Patient was found to have a mass in his right lung. He is seeing pulmonolog y at [facility] and has had follow-up scans which demonstrat ed no growth of the area. History of partial nephrectomy [id number] Z90.5 Patient has a history of a partial nephrectom y for a mass on the kidney years ago. He is now having right flank pain which he states as the same as prior to his partial nephrectom y. Will obtain an ultrasound to evaluate the remaining kidney. Hematemesis [id number] K92. 0 Patient has a history of coughing up blood and hematemesi s (although has not vomited recently). He has had evaluation s of his lungs and is interested in an endoscopy to check his esophagus. Referral placed to GI. [id number] Caryn Jauregui NP [address] [phone] 1 12/05/2021 07:39:05 12/05/2021 08:06:25 Left lower quadrant pain [id number] R10.32 He states he has been having [...] with no improvemen t in symptoms. Diverticulitis [id number] K57.92 Patient noted with left lower quadrant [...] or with no improvemen t in symptoms. [id number] Monica Ferrara MS, RDN, LDN [facility] [address] [place] [phone] 6 12/06/2021 08:04:43 12/06/2021 10:40:31 Prediabetes [id number] R73.03 Summary of Visit:Gi saavedra is a 51 year old primarily Zimbabwean speaking male referred for prediabete s. Jyoti [...] food groups/lis ts- What Can I Eat? Zimbabwean handout- Healthy Snack Zimbabwean handout- Healthy Plate Zimbabwean handout Educator Assessed Learning Barriers: language barrier [id number] Vlad Escalera NP [facility] [address] [place] [phone] 01/04/2022 12:15:26 01/04/2022 12:39:32 Arthritis of left knee [id number] 164180 M13.862 Suspected arthritis along with meniscus wear [...] Girard Member ID Guarantor Name 08/02/2021 1 [place]: [facility] Jai Herrera [id number] Jai Javier 10/31/2022 1 [facility] (MEDICAID HMO) [id number] Jai Javier [id number] Jai Javier 08/02/2021 2 [place]: [facility] Jai Herrera [id number] Jai Herrera Notes Date Note Type Note Provider Name and Address Organization Details Recorded Time 08/02/2021 text/html Patient is a 51 year old male who presents today for a hospital follow-up. He was hospitalized from 07/14/21-07/18/21 for COVID. He was hospitalized at [facility]. He got antibiotics (ceftriaxone and azithromycin for pneumonia) and remdesivir while he was hospitalized. He is feeling much better since he got out of the hospital. Disha Callejas MD [address] [place] [address], [phone], [facility] 08/02/2021 15:50:26 10/26/2021 text/html Patient [...] prior to having surgery. Disha Callejas MD [address] [place] [address], [phone], [facility] 10/26/2021 11:40:45 12/05/2021 text/html Patient [...] 2019 that showed diverticulosis. 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 Social Support:Primary Support Person: self, GFLiving Arrangements: lives with GF Previous Diet Education/Training:Pr evious Visit with Dietitian: none Meals and Dining:Meals per day:Snacks per day:Skips meals:Recent dietary changes: eating less latelySpecial diets in the past:Food Allergy or intolerances: none reportedPrimary Clinical Informatics Educator: usually ptPrimary Food Adolescent Counselor:bothDining Out frequency: 1x per weekAlcohol Intake: noneSupplements: Diet recall:- Breakfast: sandwich w/ 1 slice ham and 1 slice cheese, 2 eggs, on potato bread- Lunch: chicken with northern irish fries OR empanadas OR sometimes mixed veggies [...] me Monica Ferrara, MS, RDN, LDN [address] [place], [phone], [facility] 12/29/2021 12:04:04 01/04/2022 text/html Patient is [...] numbness, tingling or swelling. Disha Callejas MD [address] [place] [address], [place], [phone], [facility] 01/04/2022 16:38:41
--- OUTSIDE RECORDS SUMMARY | 2025-04-09 12:02 | XMS_ITS | Encounter Summary ---
Author Organization [employer] Address [address] [place] [address] Care Team Providers Care Professor Of Voice Name Role Phone Kathy Hair MD Primary Care Provide r Reason for Visit * Reason Onset Date Comments Hospital Follow-up 03/29/2025 Encounter Details Date Type Department Care Team (Late st Contact Info) Description 03/29/2025 Telephone [facility] [address] [place], [place] [phone] Kathy Hair MD [address] [place], [place] [phone] Hospital Follow-up Social History Tobacco Use Types [...] from pt requesting a F appt. Hospital: [facility] Date of admission: 03/08 Discharge date: 03/25 Diagnosed: Diverticulitis *Send message to [place] Clinical Care Coordinators Contact pt at [phone] Number pt call [phone] documented in this encounter Plan of Treatment Upcoming Encounters Date Type Department Care Team (Late st Contact Info) Description 04/14/2025 9:30 AM EDT Office Visit [facility] [address] [place] [phone] Kathy Hair MD [address] [place] [address] 04/23/2025 11:00 AM EDT Office Visit [facility] [address] [place] [address] Kathy Hair MD [address] [place] [phone] documented as of this encounter Visit Diagnoses Not on filedocumented in this encounter Additional Health Concerns Assessment Noted Time PHQ-9 Depression Total Score: 0 09/15/20 10:07 AM EST documented as of this encounter Care Teams Professor Of Voice Relationship Specialty Start Date End Date Kathy Hair MD [address] [place] [address] PCP - General Internal Medicine 09/15/24 documented as of this encounter
--- OUTSIDE RECORDS SUMMARY | 2025-04-09 12:02 | XMS_ITS | Referral Summary ---
Author Organization [facility] Address [address] [place] [address] Care Team Providers Care Manager Customer Service Name Role Phone Disha Callejas MD Primary [...] Not on file Procedures * Due to [employer] law, this organization might not be sharing negative HIV tests. Procedure Name Priority Date/Time Associated Diagnosis Comments COMPREHENSIVE METABOLIC PANEL Routine 07/19/2021 2:56 AM EDT from Last 3 Months or Most Recently Relevant to Health Maintenance Results * Due to [place] [employer] law, this organization might not be sharing negative HIV tests. * (ABNORMAL) Comprehensive Metabolic Panel (07/19/2021 2:56 AM EDT) NA 136 135 - 145 mmol/L 07/19/2021 3:39 AM EDT [facility] K 3.9 3.5 - 5.3 mmol/L 07/19/2021 3:39 AM EDT [facility] Cl 103 97 - 110 mmol/L 07/19/2021 3:39 AM EDT [facility] CO2 25 24 - 32 mmol/L 07/19/2021 3:39 AM EDT [facility] Anion Gap 8 5 - 15 07/19/2021 3:39 AM EDT [facility] Glucose 138(H) 70 - 99 mg/dL 07/19/2021 3:39 AM EDT [facility] Creatinine 0.99 0.60 - 1.30 mg/dL 07/19/2021 3:39 AM EDT [facility] eGFR Non- 88(L) >=90 mL/min/BS A 07/19/2021 3:39 AM EDT [facility] eGFR >90 >=90 mL/min/BS A 07/19/2021 3:39 AM EDT [facility] Comment: Units = mL/min/1.73 m2 Glomerular Filtration Rate (GFR) is estimated based on the CKD-EPI Creatinine Equation (2009). Stage Description GFR 1 Normal >=90 mL/min/BSA 2 Mildly decreased GFR 60-89 mL/min/BSA 3 Moderately decreased GFR 30-59 mL/min/BSA 4 Severely decreased GFR 15-29 mL/min/BSA 5 Kidney Failure <15 mL/min/BSA Calcium 8.7 8.7 - 10.7 mg/dL 07/19/2021 3:39 AM EDT [facility] Total Protein 7.3 6.0 - 8.0 g/dL 07/19/2021 3:39 AM EDT [facility] Albumin 3.5 3.5 - 4.8 g/dL 07/19/2021 3:39 AM EDT [facility] Bilirubin, Total 0.2(L) 0.3 - 1.2 mg/dL 07/19/2021 3:39 AM EDT [facility] Alkaline Phosphatase 46 30 - 115 U/L 07/19/2021 3:39 AM EDT [facility] AST 13 10 - 40 U/L 07/19/2021 3:39 AM EDT [facility] ALT 16 10 - 40 U/L 07/19/2021 3:39 AM EDT [facility] BUN 29(H) 7 - 23 mg/dL 07/19/2021 3:39 AM EDT [facility] Blood Structure of peripheral vein / Unknown Venipuncture / Unknown 07/19/2021 2:56 AM EDT 07/19/2021 3:09 AM EDT us Marietta Wilhelm NP LAB BLOOD ORDERABLES Final Result [facility] [address] [place] [address], from Last 3 Months or Most Recently Relevant to Health Maintenance Insurance [employer] Advance Directives * Full Code (Latest Code Status on File) Date Activated Date Inactivated Comments 07/15/2021 3:20 AM 07/19/2021 5:11 PM Care Teams Manager Customer Service Relationship Specialty Start Date End Date Disha Callejas MD PCP - General Family Medicine 04/27/20
--- NOTE | 2025-04-09 13:36 | A.OFFVIS_ITS ---
Intake Visit Reasons: wound check Allergies No Known Allergies Allergy (Mild, Verified 04/02/25 13:01) NONE HPI HPI wound check: Details: Patient doing well. Has been continuing wound care at home. States this is going well, he still notices a slight green tinge on the dressings when he changes it but it is improving. States output continues to be low. Ostomy continues to function well, his diet is at baseline. He denies pain in the abdomen. 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 There is 6 cm of tracking supe riorly into and 2.5 cm tracking inferiorly. The wound appears to be healing well, smaller in size today wound bed is granulation tissue no discharge noted. Ostomy in place good output Inspection: No distended Palpation (GI): Soft to palpation, nontender and Guarding due to palpation present (GI) Neuro General: patient oriented x3 Assessment & Plan Assessment & Plan (1) Pseudomonas infection: Code(s): A49.8 - Other bacterial infections of unspecified site Category: Medical (2) Status post Nick procedure: Code(s): Z93.3 - Colostomy status Category: Surgical (3) Open abdominal wall wound: Code(s): S31.109A - Unspecified open wound of abdominal wall, unspecified quadrant without penetration into peritoneal cavity, initial encounter Category: Medical Plan 54-year-old male s/p exploratory laparotomy, Nick's procedure, postoperative extraperitoneal subcutaneous abscess returning to the office for postop evaluation and wound check. Patient is doing well, he has been doing a very good job with wound care at home. Continues packing daily. His appetite and bowel function are at baseline, his ostomy has good output. On exam his abdomen is soft and benign. The midline incision wound measures 2-1/2 x 6 cm in his about 2 cm deep. There is 6 cm of tracking superiorly and 2-1/2 cm tracking inferiorly. The wound bed appears to have adequate granulation tissue and there was minimal discharge in the wound. I used betadine to prep the wound border and surrounding skin to prevent further colonization of pseudemonas. I used quarter- inch packing to pack the superior and inferior aspect and used a wet-to-dry dressing with normal saline in the midline incision. Activity restrictions remain in place. Patient will continue with daily dressing changes and will follow up for nursing visit. He will follow up with me in 1 week or sooner as needed. Coding Level of Care Code Global (35291) Diagnoses Pseudomonas infection A49.8 Status post Nick procedure Z93.3 Open abdominal wall wound S31.109A
== END 2025-04-09 12:16 | disposition home or self-care (01) ==
LOC: HO.HGS 11:46
PROVIDERS: PCP Internal Medicine
DX: A49.8 Other bacterial infections of unspecified site (principal); Z93.3 Colostomy status; S31.109A Unspecified open wound of abdominal wall, unspecified quadrant without penetration into peritoneal cavity, initial encounter
CPT/HCPCS: 99024

== ENCOUNTER 2025-04-14 10:17 | Outpatient (REF) | payer MEDICAID, SELFPAY ==
--- OUTSIDE RECORDS SUMMARY | 2025-04-14 11:17 | XMS_ITS | Encounter Summary ---
Author Organization [employer] Address [address] [place] [address] Care Team Providers Care Registration Officer Name Role Phone Kathy Hair MD Primary Care Provide r Reason for Visit * Reason Onset Date Comments Hospital Follow-up 03/29/2025 Encounter Details Date Type Department Care Team (Late st Contact Info) Description 03/29/2025 Telephone [facility] [address] [place], [place] [phone] Kathy Hair MD [address] [place], [place] [phone] Hospital Follow-up Social History Tobacco Use Types [...] AM EDT Tc from pt requesting a HDF appt. Hospital: [facility] Date of admission: 03/08 Discharge date: 03/25 Diagnosed: Diverticulitis *Send message to [place] Clinical Care Coordinators Contact pt at [phone] Number pt call [phone] documented in this encounter Plan of Treatment Upcoming Encounters Date Type Department Care Team (Late st Contact Info) Description 04/23/2025 11:00 AM EDT Office Visit [facility] [address] [place] [address] Kathy Hair MD [address] [place] [address] documented as of this encounter Visit Diagnoses Not on filedocumented in this encounter Additional Health Concerns Assessment Noted Time PHQ-9 Depression Total Score: 0 09/15/20 10:07 AM EST documented as of this encounter Care Teams Registration Officer Relationship Specialty Start Date End Date Kathy Hair MD [address] [place] [address] PCP - General Internal Medicine 09/15/24 documented as of this encounter
--- OUTSIDE RECORDS SUMMARY | 2025-04-14 11:17 | XMS_ITS | Referral Summary ---
Author Organization [facility] Address [address] [place] [address] Care Team Providers Care Equip Maint Eng Name Role Phone Disha Callejas MD Primary [...] Not on file Procedures * Due to [place] [employer] law, this organization might not be sharing negative HIV tests. Procedure Name Priority Date/Time Associated Diagnosis Comments COMPREHENSIVE METABOLIC PANEL Routine 07/19/2021 2:56 AM EDT from Last 3 Months or Most Recently Relevant to Health Maintenance Results * Due to [place] [employer] law, this organization might not be sharing negative HIV tests. * (ABNORMAL) Comprehensive Metabolic Panel (07/19/2021 2:56 AM EDT) NA 136 135 - 145 mmol/L 07/19/2021 3:39 AM EDT [facility] K 3.9 3.5 - 5.3 mmol/L 07/19/2021 3:39 AM EDT [facility] Cl 103 97 - 110 mmol/L 07/19/2021 3:39 AM EDT [facility] CO2 25 24 - 32 mmol/L 07/19/2021 3:39 AM EDT [facility] Anion Gap 8 5 - 15 07/19/2021 3:39 AM EDT [facility] Glucose 138(H) 70 - 99 mg/dL 07/19/2021 3:39 AM EDT [facility] Creatinine 0.99 0.60 - 1.30 mg/dL 07/19/2021 3:39 AM EDT [facility] eGFR Non- 88(L) >=90 mL/min/BS A 07/19/2021 3:39 AM EDT [facility] eGFR >90 >=90 mL/min/BS A 07/19/2021 3:39 AM EDT [facility] Comment: Units = mL/min/1.73 m2 Glomerular Filtration Rate (GFR) is estimated based on the CKD-EPI Creatinine Equation (2009). Stage Description GFR 1 Normal >=90 mL/min/BSA 2 Mildly decreased GFR 60-89 mL/min/BSA 3 Moderately decreased GFR 30-59 mL/min/BSA 4 Severely decreased GFR 15-29 mL/min/BSA 5 Kidney Failure <15 mL/min/BSA Calcium 8.7 8.7 - 10.7 mg/dL 07/19/2021 3:39 AM EDT [facility] Total Protein 7.3 6.0 - 8.0 g/dL 07/19/2021 3:39 AM EDT [facility] Albumin 3.5 3.5 - 4.8 g/dL 07/19/2021 3:39 AM EDT [facility] Bilirubin, Total 0.2(L) 0.3 - 1.2 mg/dL 07/19/2021 3:39 AM EDT [facility] Alkaline Phosphatase 46 30 - 115 U/L 07/19/2021 3:39 AM EDT [facility] AST 13 10 - 40 U/L 07/19/2021 3:39 AM EDT [facility] ALT 16 10 - 40 U/L 07/19/2021 3:39 AM EDT [facility] BUN 29(H) 7 - 23 mg/dL 07/19/2021 3:39 AM EDT [facility] Blood Structure of peripheral vein / Unknown Venipuncture / Unknown 07/19/2021 2:56 AM EDT 07/19/2021 3:09 AM EDT us Marietta Wilhelm NP LAB BLOOD ORDERABLES Final Result [facility] [address] [place] [address], from Last 3 Months or Most Recently Relevant to Health Maintenance Insurance [employer] Advance Directives * Full Code (Latest Code Status on File) Date Activated Date Inactivated Comments 07/15/2021 3:20 AM 07/19/2021 5:11 PM Care Teams Equip Maint Eng Relationship Specialty Start Date End Date Disha Callejas MD PCP - General Family Medicine 04/27/20
--- OUTSIDE RECORDS SUMMARY | 2025-04-14 11:17 | XMS_ITS | Data Portability ---
Author Organization [place] - [facility] Address [address] [place] [address] Care Team Providers Care Golf Course Keeper Name Role Phone DISHA CALLEJAS Primary Care Provider DISHA CALLEJAS Referring Provider [phone] Assessment No assessment recorded. Plan of Treatment Reminders Order Date Submit Date Provider Last Modified By Organization Details Last Modified Time Details Appointments None recorded. Lab urinalysis, dipstick [address] ([facility]), 16 [facility] Dylan, [place], [address], 08:13:50 culture, urine 2021 [facility] Patient Reg, [address] [place] [address], [address], 10:17:56 HbA1c (hemoglobin A1c), blood 2021 022 [email or web address] [facility] Patient Reg, [address] [place] [address], [address], 10:40:35 CMP, serum or plasma 2021 022 [facility] Patient Reg, [address] [place] [address], [address], 17:17:13 lipid panel, serum 2021 [facility] Patient Reg, [address] [place] [address], [address], 17:17:14 Referral gastroenter ologist referral [email or web address] [place] [address] - Gi, 250 [facility], [address], [place], [address], 2 08:26:45 nutritionis t/dietitian referral 2020 [email or web address] [place] [address] (Nut[facility] Services), [address] [place], [address], 2 15:42:35 Procedures None recorded. Surgeries None recorded. Imaging US, kidney - right kidney 2021 022 [facility] (Central Scheduling), [address] [place], [address], 08:54:00 Medication Orders diclofenac 1 % topical gel 2021 022 [facility]/Pharmacy #[id number], [address] [place], [place], [id number], 2 12:33:58 metronidazo le 500 mg tablet [address]/Pharmacy #[id number], [address] [place], [place], [id number], 2 13:50:46 Cipro 500 mg tablet [address]/Pharmacy #[id number], [address] [place], [place], [id number], 13:50:40 Patient Targets Encounter Date Encounter Id Patient Goals Patient Target Last Modified By Organization Details Last Modified Time 12/06/2021 [id number] Goals: 1. Promote weight loss of 1# per week. 2. Promote BGlu management with HbA1C <5.7% 3. Promote lipid panel WNL. 4. Promote regular physical activity. Not available 12/29/2021 11:18:47 Patient Instructions Encounter Date Encounter Id Patient Instructions Last Modified By Organization Details Last Modified Time 12/06/2021 [id number] 2 month f/u or sooner if needed [...] Not available 12/06/2021 10:28:42 Reason for Referral Icu Clerk/dietitian Refer ral for Prediabetes Referring Physician: Disha Callejas [facility], Encounter Date: 08/02/2021 Strategic Client Executive Referral for Hematemesis Referring Physician: Disha Callejas [facility], Encounter Date: 10/26/2021 Results Created [...] Consi stent with Diabe ras Not Available [facility] Laboratory Department [address] [place], [address] 10/26/2021 16:50:52 10/26/1910/26/2021 COMPR EHENS MACIE MET. PANEL sodium 136 mmol/ L 136-14 5 normal Not Available [facility] Laboratory Department [address] [place], [address] 10/26/2021 17:17:12 10/26/1910/26/2021 COMPR EHENS MACIE MET. PANEL potassium 4.0 mmol/ L 3.5-5. 1 normal Not Available [facility] Laboratory Department [address] [place], [address] 10/26/2021 17:17:12 10/26/19 22 10/26/2021 COMPR EHENS MACIE MET. PANEL chloride 100 mmol/ L 98-107 normal Not Available [facility] Laboratory Department [address] [place], [address] 10/26/2021 17:17:12 10/26/19 22 10/26/2021 COMPR EHENS MACIE MET. PANEL carbon dioxide 25.3 mmol/ L 22-29 normal Not Available [facility] Laboratory Department [address] [place] [address], [address] 10/26/2021 17:17:12 10/26/19 22 10/26/2021 COMPR EHENS MACIE MET. PANEL anion gap 15 mmol/ L 10-20 normal Not Available [facility] Laboratory Department [address] [place] [address], [address] 10/26/2021 17:17:12 10/26/19 22 10/26/2021 COMPR EHENS MACIE MET. PANEL blood urea nitrogen 16 mg/dL 6-20 normal Not Available [facility] Laboratory Department [address] [place], [address] 10/26/2021 17:17:12 10/26/19 22 10/26/2021 COMPR EHENS MACIE MET. PANEL creatinine 0.79 mg/dL 0.70-1 .2 normal Not Available [facility] Laboratory Department [address] [place] [address], [address] 10/26/2021 17:17:12 10/26/19 22 10/26/2021 COMPR EHENS [...] under the age of 18 Not Available [facility] Laboratory Department [address] [place], [address] 10/26/2021 17:17:12 10/26/19 22 10/26/2021 COMPR EHENS MACIE MET. PANEL glucose 116 mg/dL 70-106 high Not Available [facility] Laboratory Department [address] [place], [address] 10/26/2021 17:17:12 10/26/19 22 10/26/2021 COMPR EHENS MACIE MET. PANEL calcium 9.4 mg/dL 8.6-10 .3 normal Not Available [facility] Laboratory Department [address] [place], [address] 10/26/2021 17:17:12 10/26/19 22 10/26/2021 COMPR EHENS MACIE MET. PANEL bilirubin total 0.4 mg/dL 0.2-1. 2 normal Not Available [facility] Laboratory Department [address] [place], [address] 10/26/2021 17:17:12 10/26/19 22 10/26/2021 COMPR EHENS MACIE MET. PANEL aspartate amino transferase 23 U/L 5-40 normal Not Available [facility] Laboratory Department [address] [place], [address] 10/26/2021 17:17:12 10/26/19 22 10/26/2021 COMPR EHENS MACIE MET. PANEL alanine aminotransfe rase 27 U/L 5-41 normal Not Available [facility] Laboratory Department [address] [place], [address] 10/26/2021 17:17:12 10/26/19 22 10/26/2021 COMPR EHENS MACIE MET. PANEL total protein 7.1 g/dL 6.4-8. 3 normal Not Available [facility] Laboratory Department [address] [place], [address] 10/26/2021 17:17:12 10/26/19 22 10/26/2021 COMPR EHENS MACIE MET. PANEL albumin level 4.4 g/dL 3.5-5. 2 normal Not Available [facility] Laboratory Department [address] [place], [address] 10/26/2021 17:17:12 10/26/19 22 10/26/2021 COMPR EHENS MACIE MET. PANEL globulin 2.7 gm/dL 2.0-3. 5 normal Not Available [facility] Laboratory Department [address] [place], [address] 10/26/2021 17:17:12 10/26/19 22 10/26/2021 COMPR EHENS MACIE MET. PANEL albumin globulin ratio 1.6 % 1.1-2. 5 normal Not Available [facility] Laboratory Department [address] [place], [address] 10/26/2021 17:17:12 10/26/19 22 10/26/2021 COMPR EHENS MACIE MET. PANEL alkaline phosphatase 60 U/L 40-129 normal Not Available [facility] Laboratory Department [address] [place], [address] 10/26/2021 17:17:12 10/26/19 22 10/26/2021 LIPID PANEL WITH REFLE X triglyceride s w/ reflex LDL 208 mg/dL 30-150 high Refer ence Range s: <150 mg/dl Faby l 150-1 99 mg/dl Borde rline High 200-4 99 mg/dl High >500 mg/dl Very High Not Available [facility] Laboratory Department [address] [place], [address] 10/26/2021 17:17:13 10/26/19 22 10/26/2021 LIPID PANEL WITH REFLE X cholesterol 148 mg/dL 100-20 0 normal Not Available [facility] Laboratory Department [address] [place], [address] 10/26/2021 17:17:13 10/26/19 22 10/26/2021 LIPID PANEL [...] mg/dL Very high >190 mg/dL Not Available [facility] Laboratory Department [address] [place], [address] 10/26/2021 17:17:13 10/26/19 22 10/26/2021 LIPID PANEL WITH REFLE X HDL cholesterol 37.9 mg/dL 40-60 low Major risk facto r for CHD: <40 mg/dL Negat macie risk facto r for CHD: >=60 mg/dL Not Available [facility] Laboratory Department [address] [place], [address] 10/26/2021 17:17:13 10/26/19 22 10/26/2021 LIPID PANEL WITH REFLE X chol HDL ratio 3.91 Risk CHOL/ HDL CHOL/ HDL Ratio Male Femal e 1/2 AVERA GE 3.43 3.27 AVERA GE 4.97 4.44 2 X AVERA GE 9.55 7.05 3 X AVERA GE 23.39 11.04 Not Available [facility] Laboratory Department [address] [place], [address] 10/26/2021 17:17:13 12/06/1912/05/2021 URINE CULTU RE results [...] ----- -- PATIE NT: Nancy Wilcox ACCT: [id number] LOC: HE.DO Sahu U: [id number] AGE/S X: 51/M ROOM: RE12/[address]: Aurelia carver : 05/27 BED: DIS: STATU S: DEP CLI TLOC: ----- ----- ----- ----- ----- ----- ----- ----- ----- ----- ----- ----- ----- ----- ----- ----- ----- ----- -- SPEC #: [id number] LUCRECIA: 12/05-U NK STATU S: COMP REQ #: [id number] RECD: 12/05- [address]: Aurelia Barber [facility] E: Caleb mullen ENTR: 12/05- 751 [...] -- END OF REPOR T Not Available [facility] Laboratory Department [address] [facility], [place], [address] 12/07/2021 10:17:56 12/06/19 22 12/05/2021 urina lysis , dipst ick SPECIFIC GRAVITY 1.[address] [facility] ([facility]) [address] [place], [address], 12/05/2021 08:06:56 12/06/19 22 12/05/2021 urina lysis , dipst ick PH 7.0 Not Available [facility] ([facility]) [address] [place], [address], 12/05/2021 08:06:56 12/06/19 22 12/05/2021 urina lysis , dipst ick LEUKOCYTES Neg Not Available [facility] ([facility]) [address] [place], [address], 12/05/2021 08:06:56 12/06/19 22 12/05/2021 urina lysis , dipst ick NITRITE Neg Not Available [facility] ([facility]) [address] [place], [address], 12/05/2021 08:06:56 12/06/19 22 12/05/2021 urina lysis , dipst ick PROTEIN Neg Not Available [facility] ([facility]) [address] [place], [address], 12/05/2021 08:06:56 12/06/19 22 12/05/2021 urina lysis , dipst ick GLUCOSE Neg Not Available [facility] ([facility]) [address] [place], [address], 12/05/2021 08:06:56 12/06/19 22 12/05/2021 urina lysis , dipst ick KETONE Neg Not Available [facility] ([facility]) [address], [place], [address], 12/05/2021 08:06:56 12/06/19 22 12/05/2021 urina lysis , dipst ick UROBILINOGEN Normal Not Available [facility] ([facility]) [address] [place], [address], 12/05/2021 08:06:56 12/06/19 22 12/05/2021 urina lysis , dipst ick BILIRUBIN Neg Not Available [facility] ([facility]) [address] [place], [address], 12/05/2021 08:06:56 12/06/19 22 12/05/2021 urina lysis , dipst ick BLOOD Neg Not Available [facility] ([facility]) [address] [place], [address], 12/05/2021 08:06:56 12/07/19 22 12/06/2021 , [facility] [address] [facility] [place] [address] Ultras ound Report Signed Patien t: Sarabjit Castelan MR#: [id number] : [id number] Acct:H [id number] Age/Se x: 51 / M ADM Date: Loc: [facility] Attend ing Dr: Disha lilly MD Orderi ng Physic kei: Disha lilly Date of Servic e: Proced ure(s) : US renal BI Access ion Number (s): [id number] H cc: Disha lilly EXAM: US renal [...] Transc riptio nist: [email or web address] [facility] [address] [place] [address], [address], 12/08/2021 08:15:53 Result Notes None recorded. Problems Name Problem SNOMED Code Status Onset Date Resolution Date Notes Provider Name and Address Organization Details Recorded Time Benign essential hypertensi on 4132640 Active 2019 Not Available [facility] 0 23:48:14 Hematemesi s 2428457 Active 2019 Carlton Hamilton MD [address] [place] [address], [address] , [facility] 0 17:09:26 History of SARS-CoV-2 4684072982060 51468 Active 2020 Catherine Ramirez CCM null, [facility] 2 11:01:47 COVID-19 550613716 Active 2020 Disha Callejas MD [address] [facility] [place], [address] , [facility] 15:39:26 Atrial fibrillati on 05419221 Active 2020 Disha Callejas MD [address] [facility] [place], [address] , [facility] 15:46:00 Glaucoma 55891724 Active 2020 Disha Callejas MD [address] [facility] [place], [address] , [facility] 15:46:06 Prediabete s 582876097 Active 2020 Disha Callejas MD [address] [place], [place] [address], [address] , [facility] 15:46:07 Nodule of lung 468856991 Active 2020 Disha Callejas MD [address] [facility] [place], [address] , [facility] 15:46:15 History of myocardial infarction 834204410 Active 2020 Disha Callejas MD [address] [facility] [place], [address] , [facility] 2 09:04:19 Left ventricula r hypertroph y 88475698 Active 2020 Disha aCllejas MD [address] [facility] [place], [address] , [facility] 15:46:39 Erectile dysfunctio n 401401364 Active 2020 Disha Callejas MD [address] [facility] [place], [address] , [facility] 15:46:55 Myocardial infarction 82520741 Active 2021 Leora Castaneda RN, BSN [facility] 08:51:03 Problem Notes None recorded. Procedures Surgical History Date Name Laterality Status Provider Name and Address Organization Details Recorded Time 12/07/19 22 Nutrition completed Monica Ferrara, MS, RDN, LDN [address] [place], [address], [facility] 12/29/2021 11:49:46 10/26/19 22 PHQ-9 Patient Health Questionnaire completed Disha Callejas MD [address] [place], [address], [facility] 10/26/2021 11:40:38 06/16/20 20 PHQ-9 Patient Health Questionnaire completed Disha Callejas MD [address] [place] [address], [address], [facility] 06/16/2020 09:15:13 10/07/19 20 colonoscopy completed Disha Callejas MD [address] [place], [address], [facility] 06/16/2020 08:45:24 partial nephrectomy completed Disha Callejas MD [address] [place] [address], [address], [facility] 04/07/2020 09:27:15 Imaging Results None recorded. Procedure [...] Last Updated DateTime 187.96 cm 34 kg/m2 581216. 98 g 95 % 95 % 71 /min 128/100 mm[Hg] 130/102 mm[Hg] [facility] 11:05:16 Date Recorded Body height Body mass index (BMI) Body weight Heart rate Systolic And Diastolic Provider Name and Address Organization Details Last Updated DateTime 12/05/2021 187.96 cm 33.5 kg/m2 051951.6 1 g 64 /min 124/84 mm[Hg] Yandy Irizarry CMA [facility] 12/05/2021 07:47:48 Date Recorded Body height Body mass index (BMI) Body weight Provider Name and Address Organization Details Last Updated DateTime 12/06/2021 187.96 cm 33.4 kg/m2 388143.02 g Monica Ferrara, MS, RDN, LDN [address] [place], [address], [facility] 12/06/2021 09:26:01 Date Recorded Body height Body mass index (BMI) Body weight Heart rate Oxygen saturation Oxygen saturation in Arterial blood by Pulse oximetry Systolic And Diastolic Provider Name and Address Organization Details Last Updated DateTime 2 187.96 cm 33.7 kg/m2 023362 g 64 /min 98 % 98 % 123/82 mm[Hg] TAYLOR Escalera [facility] 2 12:22:10 Date Recorded Systolic And Diastolic Provider Name and Address Organization Details Last Updated DateTime 08/02/2021 132/84 mm[Hg] Disha Callejas MD [address] [place], [address], [facility] 08/02/2021 15:47:45 Date Recorded Body height Body mass index (BMI) Body weight Heart rate Oxygen saturation Oxygen saturation in Arterial blood by Pulse oximetry Systolic And Diastolic Provider Name and Address Organization Details Last Updated DateTime 187.96 cm 32.6 kg/m2 803565. 46 g 67 /min 97 % 97 % 138/92 mm[Hg] Ken Weldon MA [facility] 15:15:44 Social History Question Answer Notes LastModified by Organizat ion Details LastModified Time Tobacco Smoking Status Never Smoker Disha Callejas MD [address] [place], [address], [facility] 04/07/2020 09:18:54 How Much Tobacco Do You Chew? None Information not available 04/07/2020 Which Illicit Or Recreational Drugs Have You Used? Denies Information not available 04/07/2020 Hepatitis C Screen 06/16/2020 Nonreactive Information not available 06/17/2020 Tobacco Use (smoking, Smokeless Tobacco) No Information not available 04/07/2020 Date Of Tobacco Screen 08/01/2021 [email or web address] Information not available 08/01/2021 Members Of Household 1 Information not available 04/07/2020 Marital Status Informatio n not available 04/07/2020 What Was The Date Of Your Most Recent Tobacco Screening? 10/26/2021 [email or web address] Information not available 10/26/2021 How Many Children Do You Have? 4 Information not available 04/07/2020 What Is Your Relationship Status? [email or web address] Information not available 08/01/2021 Sex: Unknown Functional Status Question Answer Note LastModified by Organizat ion Details LastModified Time Do you use any illicit or recreational drugs? No [email or web address] Information not available 08/01/2021 What is your [...] recombinant 0 completed AURY Ballesteros [facility] 08/01/2021 15:38:02 COVID-19, mRNA, LNP-S, PF, 30 mcg/0.3 mL dose 1 completed Disha Callejas MD [address] [place] [address] [place], [address], [facility] 10/26/2021 11:31:11 COVID-19, mRNA, LNP-S, PF, 30 mcg/0.3 mL dose 1 completed Disha Callejas MD [address] [place] [address] [place], [address], [facility] 10/26/2021 11:31:11 Influenza, split virus, quadrivalent, PF 8 completed Disha Callejas MD [address] [place] [address] [place], [address], [facility] 10/26/2021 11:31:11 Influenza, split virus, trivalent, preservative 4 completed Disha Callejas MD [address] [place] [address] [place], [address], [facility] 10/26/2021 11:31:11 Influenza, split virus, trivalent, preservative 7 completed Disha Callejas MD [address] [place] [address], [place], [address], [facility] 10/26/2021 11:31:11 Influenza, split virus, quadrivalent, PF 1 completed Disha Callejas MD [address] [place] [address] [place], [address], [facility] 10/26/2021 11:31:11 Influenza, split virus, quadrivalent, PF 0 completed Disha Callejas MD [address] [place] [address] [place], [address], [facility] 10/26/2021 11:31:11 Influenza, split virus, trivalent, preservative 1 completed Disha Callejas MD [address] [place] [address] [place], [address], [facility] 10/26/2021 11:31:11 pneumococcal polysaccharide PPV23 1 completed Disha Callejas MD [address] [place] [address] [place], [address], [facility] 10/26/2021 11:31:11 Influenza, split virus, trivalent, preservative 5 completed Disha Callejas MD [address] [place] [address] [place], [address], [facility] 10/26/2021 11:31:11 Influenza, split virus, trivalent, preservative 2 completed Disha Callejas MD [address] [place] [address] [place], [address], [facility] 10/26/2021 11:31:11 Influenza, split virus, trivalent, preservative 6 completed Disha Callejas MD [address] [place] [address] [place], [address], [facility] 10/26/2021 11:31:11 Influenza, split virus, trivalent, preservative 3 completed Disha Caleljas MD [address] [place], [address], [facility] 10/26/2021 11:31:11 Td (adult), 2 Lf tetanus toxoid, preservative free, adsorbed 1 completed Disha Callejas MD [address] [place], [address], [facility] 10/26/2021 11:31:11 Tdap 0 completed Yandy Irizarry CMA [facility], [facility] 06/16/2020 09:19:12 Past Encounters Encounter ID Performer Location Encounter Start Date Encounter Closed Date Diagnosis/Indication Diagnosis SNOMED-CT Code Diagnosis ICD10 Code Diagnosis Note [id number] Disha Callejas MD [address] [address] 04/07/2020 09:07:08 04/07/2020 09:33:17 Benign essential hypertension 2535894 I10 Patient has a history of hypertensi on for which he has been taking amlodipine 5mg and lisinopril 40mg daily. His blood pressure is currently well controlled . He will continue current medication s which were prescribed today. He will follow-up in 2 months for a physical. Glaucoma 11787643 H40.9 Patient has a history of glaucoma for which he uses eye drops. He has no refills at this time, but has an appointmen t scheduled with an eye doctor next month. Gastroesop hageal reflux disease 891422051 K21.9 Patient has a history of GERD for which he has been taking omeprazole 20mg daily. He notes that while he was in [facility], he got a colonoscop y and was supposed to get an endoscopy as he intermitte ntly has been spitting up blood. GI referral placed and omeprazole refilled. History of malignant neoplasm of kidney 121448703 Z85.528 Patient has a history of a renal tumor which was removed in 2013. He has not had significan t follow-up since then. Recommende d nephrology evaluation . Referral placed. [id number] Disha Callejas MD [facility] [address] [place] [address] 06/16/2020 08:29:53 06/16/2020 09:11:41 Adult health examination 010133521 Z00.00 Patient should discuss medical decisions with Health Care Proxy. Recommende d screenings included colonoscop y screening age 50, earlier based on family history/ri sk factors; one time screen for hepatitis C if born between 9282-2015 or has risk factors. Reviewed vaccines and current recommenda tions. Basic health topics include aerobic exercise, importance of healthy/ba lanced diet and minimizing caffeine and alcohol. Administra tion of diphtheria, pertussis, and tetanus vaccine 761171723 Z23 Patient due for Tdap vaccinatio n. Administer ed today. Screening for malignant neoplasm of colon 552853871 Z12.11 Patient reports a colonoscop y in September of 2019 while he was in [facility]. No records available, but states he has a history of polyps. Will plan for follow-up colonoscop y in 3-5 years. Varicella vaccination 68 128633 Z23 Patient due for shingles vaccinatio n. Prescribed to his pharmacy. Benign ess ential hypertension 5214820 I10 Patient has a history of hypertensi on for which he has been taking amlodipine 5mg and lisinopril 40mg daily. His blood pressure is currently well controlled . He will continue current medication s which were prescribed today. He will follow-up in 2 months for a physical. At [facility] risk of sexually transmitted infection 976705639 Z20.2 Patient was recently in [facility] and would like to be tested for STDs. Blood and urine obtained for testing today. Hyperlipid emia screening 623383043 Z13.220 Patient due for hyperlipid emia screening. Lipid panel obtained today. Large prostate 725554619 N40.0 Patient has a slightly enlarged prostate on examinatio n. Will check PSA today. Impotence of organic origin 536260078 N52.9 Patient has been struggling with getting and maintainin g an erection. Discussed risks and benefits of medication . Prescribed sildenafil 50mg daily as needed. Patient will follow-up if not improving. Hemorrhoids 91874085 K64 .9 Patient has internal hemorrhoid s which are causing him pressure and discomfort . Prescribed hydrocorti sone cream to use topically and help his symptoms. [id number] Carlton Hamilton MD [facility] [address] [place] [address] [address] [place] [address] 07/18/2020 16:45:30 07/18/2020 17:23:52 Hematemesis 0062909 K92.0 A few episodes of bringing up blood (he thinks from the stomach) in Aug and wishes an EGD. No melena. No other red flag ROS. On PRN omeprazole for occasional upper GI ROS. S/p distant treated H.Pylori without check of eradicatio n. Family his tory of cancer of colon 131015968 Z80.0 Father History of polyp of colon 666309418 Z86.010 On prior colons [id number] Donna Segal MD [facility] [address] [place] [phone] 7 07/31/2020 14:46:41 07/31/2020 14:47:09 Viral screening [id number] Z11.59 [id number] Vlad Escalera NP [facility] use [address] [phone] 09/19/2020 12:23:54 09/19/2020 12:48:00 Onychomycosis due to dermatophyte [id number] B35.1 Patient educated about onychomyco sis and that the process to treat this can take some time. Patient will start on medication as directed and is aware of the side effects. Patient will follow up if no improvemen t after 1 month. If no improvemen t then try oral medication . Patient can call with any concerns. History of myocardial infarction [id number] I25.2 Patient stated he had a heart attack back in 2016 and had a pain a couple months ago which scared him. Patient hasn't had pain since. Patient would like a referral to cardiology . [id number] Donna Segal MD [facility] [address] [place] [phone] 10/07/2020 16:21:41 10/07/2020 16:22:35 Viral screening [id number] Z11.59 [id number] Disha Callejas MD [facility] use [address] [phone] 1 08/02/2021 15:02:27 08/02/2021 16:13:54 COVID-19 [id number] U07.1 Estefania was hospitaliz ed from 07/14/21-1 at [facility] for COVID-19 infection and pneumonia. He was treated with remdesivir and ceftriazon e/azithrom ycin. He is feeling much better, but continues to have a slight cough and some fatigue. Encouraged patient to work on rebuilding his stamina and use honey or cough drops to help with his cough. Patient will follow-up as needed. Prediabetes [id number] R7 3.03 Patient has a history of prediabete s. He would like to see a nutritioni st, referral placed. Benign ess ential hypertension [id number] I10 Patient has a history of hypertensi on for which he has been taking chlorthali done 12.5mg daily and lisinopril 40mg daily. His blood pressure is currently well controlled . He will continue current medication s which were prescribed today. He will follow-up in 2 months or earlier as needed. [id number] Disha Callejas MD [address] [phone] 10/26/2021 10:51:54 10/26/2021 11:39:09 Adult health examination [id number] Z00.01 Patient should discuss medical decisions with Health Care Proxy. Recommende d screenings included colonoscop y screening age 50, earlier based on family history/ri sk factors; one time screen for hepatitis C if born between 5946-3643 or has risk factors. Reviewed vaccines and current recommenda tions. Basic health topics include aerobic exercise, importance of healthy/ba lanced diet and minimizing caffeine and alcohol. Administra tion of diphtheria, pertussis, and tetanus vaccine [id number] Z23 Patient is up to date, received TDAP in 2020. Screening for malignant neoplasm of colon [id number] Z12.11 Patient reports a colonoscop y in September of 2019 while he was in [facility]. No records available, but states he has a history of polyps. Will plan for follow-up colonoscop y in 3-5 years. Viral screening [id number] Z11.59 Non-reacti ve screening in 2020. Varicella vaccination [id number] Z23 Patient due for shingles vaccinatio n. Prescribed to his pharmacy. Benign ess ential hypertension [id number] I10 Patient has a history of hypertensi [...] controlled with emtoprolol succinate 50mg daily. Prediabetes [id number] R7 3.03 Patient has a history of prediabete s. Will check blood work today. Nodule of lung 300160543 R91.1 Patient was found to have a mass in his right lung. He is seeing pulmonolog y at [facility] and has had follow-up scans which demonstrat ed no growth of the area. History of partial nephrectomy [id number] Z90.5 Patient has a history of a partial nephrectom y for a mass on the kidney years ago. He is now having right flank pain which he states as the same as prior to his partial nephrectom y. Will obtain an ultrasound to evaluate the remaining kidney. Hematemesis [id number] K92. 0 Patient has a history of coughing up blood and hematemesi s (although has not vomited recently). He has had evaluation s of his lungs and is interested in an endoscopy to check his esophagus. Referral placed to GI. [id number] Caryn Jauregui NP [address] [phone] 12/05/2021 07:39:05 12/05/2021 08:06:25 Left lower quadrant pain [id number] R10.32 He states he has been having [...] with no improvemen t in symptoms. Diverticulitis [id number] K57.92 Patient noted with left lower quadrant [...] or with no improvemen t in symptoms. [id number] Monica Ferrara MS, RDN, LDN [facility] [address] [place] [phone] 12/06/2021 08:04:43 12/06/2021 10:40:31 Prediabetes [id number] R73.03 Summary of Visit:Gi saavedra is a 51 year old primarily Libyan speaking male referred for prediabete s. Jyoti [...] food groups/lis ts- What Can I Eat? Libyan handout- Healthy Snack Libyan handout- Healthy Plate Libyan handout Educator Assessed Learning Barriers: language barrier [id number] Vlad Escalera NP [facility] [address] [place] [phone] 01/04/2022 12:15:26 01/04/2022 12:39:32 Arthritis of left knee [id number] M13.862 Suspected arthritis along with meniscus wear [...] Member ID Guarantor Name 08/02/2021 1 [place] [employer] [facility] Jai Herrera [id number] Jai Javier 10/31/2022 1 [facility] (MEDICAID HMO) [id number] Jai Javier [id number] Jai Javier 08/02/2021 2 [place] [facility] Jai Herrera [id number] Jai Herrera Notes Date Note Type Note Provider Name and Address Organization Details Recorded Time 08/02/2021 text/html Patient is a 51 year old male who presents today for a hospital follow-up. He was hospitalized from 07/14/21-07/18/21 for COVID. He was hospitalized at [facility]. He got antibiotics (ceftriaxone and azithromycin for pneumonia) and remdesivir while he was hospitalized. He is feeling much better since he got out of the hospital. Disha Callejas MD [address] [place] [address], [phone], [facility] 08/02/2021 15:50:26 10/26/2021 text/html Patient is a [...] prior to having surgery. Disha Callejas MD [address] [place] [address], [phone], [facility] 10/26/2021 11:40:45 12/05/2021 text/html Patient is 51 [...] 2019 that showed diverticulosis. 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 Social Support:Primary Support Person: self, GFLiving Arrangements: lives with GF Previous Diet Education/Training:Pr evious Visit with Dietitian: none Meals and Dining:Meals per day:Snacks per day:Skips meals:Recent dietary changes: eating less latelySpecial diets in the past:Food Allergy or intolerances: none reportedPrimary Supervisor Assembly Room: usually ptPrimary Food Yard Person:bothDining Out frequency: 1x per weekAlcohol Intake: noneSupplements: Diet recall:- Breakfast: sandwich w/ 1 slice ham and 1 slice cheese, 2 eggs, on potato bread- Lunch: chicken with lebanese fries OR empanadas OR sometimes mixed veggies [...] me Monica Ferrara, MS, RDN, LDN [address] [place], [phone], [facility] 12/29/2021 12:04:04 01/04/2022 text/html Patient is [...] numbness, tingling or swelling. Disha Callejas MD [address] [place] [address], [place], [phone], [facility] 01/04/2022 16:38:41
[2025-04-14 11:48] LABS: Alanine Aminotransferase 27 U/L (0-40); Albumin Level 4.3 g/dL (3.5-5.0); Alkaline Phosphatase 70 U/L (39-117); Anion Gap 13 (12-20); Aspartate Amino Transferase 24 U/L (5-37); Blood Urea Nitrogen 12 mg/dL (9-16); Calcium 9.5 mg/dL (8.4-10.2); Carbon Dioxide 30 mmol/L (22-29); Chloride 100 mmol/L (96-108); Cholesterol 215 mg/dL (<200); Estimated Glomerular Filt Rate > 60; HDL Cholesterol 40 mg/dL (>40); Potassium 4.0 mmol/L (3.3-5.1); Sodium 139 mmol/L (135-145); Total Protein 8.1 g/dL (6.5-8.0); Triglycerides 169 mg/dL (<150)
[2025-04-14 11:55] LABS: Microalbum/Creatinine Ratio Ur 5.8 ug/mg cr (<30)
== END 2025-04-14 10:18 | disposition home or self-care (01) ==
LOC: HO.HHCL 10:17
PROVIDERS: PCP Internal Medicine; Visit Provider Internal Medicine
DX: E11.9 Type 2 diabetes mellitus without complications (principal)
CPT/HCPCS: 36415; 80053; 80061; 82043; 82570

== ENCOUNTER → 2025-04-16 10:32 | Outpatient (BNVA) | payer OTHER, MEDICAID, SELFPAY | PROVIDERS: PCP Internal Medicine; Visit Provider Surgery | DX: Z48.1 Encounter for planned postprocedural wound closure (principal) | CPT/HCPCS: 99211 ==

== ENCOUNTER 2025-04-26 10:04 | Outpatient (AMB) | payer MEDICAID, SELFPAY ==
--- NOTE | 2025-04-26 10:33 | MHC.OFFVIS ---
Vital Signs 04/26/25 11:33 Weight 226 lb BP 128/76 Intake Visit Reasons: wound check Allergies No Known Allergies Allergy (Mild, Verified 04/12/25 11:07) NONE HPI HPI wound check: Details: Overall doing well, continues to have VNA for wound care going multiple times per week. He is doing dressing changes at home when VNA not coming. States this has been going well, he does still see green on the gauze when changing it. He denies discharge from the wound. States the upper part is mostly closed but the bottom aspect of the wound still has some space for packing. He denies pain. Continues to have great management of his ostomy bag. He denies fevers or chills, nausea or vomiting. 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 2 x 4 cm, 2 cm depth. 1 cm tracking superiorly, 4 cm tracking inferiorly. No discharge noted, wound bed appears to be granulation tissue. Nontender Ostomy functioning appropriately, appears patent, stool in bag. Stoma is pink Inspection: No distended Palpation (GI): Soft to palpation and nontender Neuro General: patient oriented x3 Assessment & Plan Assessment & Plan (1) Status post Nick procedure: Code(s): Z93.3 - Colostomy status Category: Surgical (2) Open abdominal wall wound: Code(s): S31.109A - Unspecified open wound of abdominal wall, unspecified quadrant without penetration into peritoneal cavity, initial encounter Category: Medical Plan 54-year-old male s/p exploratory laparotomy, Nick's procedure, postoperative extraperitoneal subcutaneous abscess returning to the office for postop evaluation and wound check. Patient continues to do well, he has been doing a very good job with wound care at home in conjunction with VNA. Continues wound care with packing daily. His appetite and bowel function are at baseline, his ostomy has good output. On exam his abdomen is soft and benign. The midline incision wound is much smaller now about 2 cm wide and 4 cm long. There is 1 cm of tracking superiorly and 4 cm tracking inferiorly. I was unable to appreciate any of the green color, likely because the patient change the dressings this morning. The wound bed appears to have adequate granulation tissue and there was minimal discharge in the wound. I used betadine to prep the wound border and surrounding skin to prevent further colonization of pseudemonas. I used quarter-inch packing to pack the inferior aspect and the rest of the wound. Activity restrictions remain in place. Overall the patient is improving, we will continue with wound care and packing while this wound continues to close. Patient will continue with daily dressing changes and will follow up for nursing visit. He will follow up with me in 2 weeks or sooner as needed. Coding Level of Care Code Global (46290) Diagnoses Status post Nick procedure Z93.3 Open abdominal wall wound S31.109A
--- OUTSIDE RECORDS SUMMARY | 2025-04-26 10:42 | XMS_ITS | Referral Summary ---
Author Organization [facility] Address [address] [place] [address] Care Team Providers Care Communication Specialist Name Role Phone Disha Callejas MD [...] Not on file Procedures * Due to [place] [employer] law, this organization might not be sharing negative HIV tests. Procedure Name Priority Date/Time Associated Diagnosis Comments COMPREHENSIVE METABOLIC PANEL Routine 07/19/2021 2:56 AM EDT from Last 3 Months or Most Recently Relevant to Health Maintenance Results * Due to [place] [employer] law, this organization might not be sharing negative HIV tests. * (ABNORMAL) Comprehensive Metabolic Panel (07/19/2021 2:56 AM EDT) NA 136 135 - 145 mmol/L 07/19/2021 3:39 AM EDT [facility] K 3.9 3.5 - 5.3 mmol/L 07/19/2021 3:39 AM EDT [facility] Cl 103 97 - 110 mmol/L 07/19/2021 3:39 AM EDT [facility] CO2 25 24 - 32 mmol/L 07/19/2021 3:39 AM EDT [facility] Anion Gap 8 5 - 15 07/19/2021 3:39 AM EDT [facility] Glucose 138(H) 70 - 99 mg/dL 07/19/2021 3:39 AM EDT [facility] Creatinine 0.99 0.60 - 1.30 mg/dL 07/19/2021 3:39 AM EDT [facility] eGFR Non- 88(L) >=90 mL/min/BS A 07/19/2021 3:39 AM EDT [facility] eGFR >90 >=90 mL/min/BS A 07/19/2021 3:39 AM EDT [facility] Comment: Units = mL/min/1.73 m2 Glomerular Filtration Rate (GFR) is estimated based on the CKD-EPI Creatinine Equation (2009). Stage Description GFR 1 Normal >=90 mL/min/BSA 2 Mildly decreased GFR 60-89 mL/min/BSA 3 Moderately decreased GFR 30-59 mL/min/BSA 4 Severely decreased GFR 15-29 mL/min/BSA 5 Kidney Failure <15 mL/min/BSA Calcium 8.7 8.7 - 10.7 mg/dL 07/19/2021 3:39 AM EDT [facility] Total Protein 7.3 6.0 - 8.0 g/dL 07/19/2021 3:39 AM EDT [facility] Albumin 3.5 3.5 - 4.8 g/dL 07/19/2021 3:39 AM EDT [facility] Bilirubin, Total 0.2(L) 0.3 - 1.2 mg/dL 07/19/2021 3:39 AM EDT [facility] Alkaline Phosphatase 46 30 - 115 U/L 07/19/2021 3:39 AM EDT [facility] AST 13 10 - 40 U/L 07/19/2021 3:39 AM EDT [facility] ALT 16 10 - 40 U/L 07/19/2021 3:39 AM EDT [facility] BUN 29(H) 7 - 23 mg/dL 07/19/2021 3:39 AM EDT [facility] Blood Structure of peripheral vein / Unknown Venipuncture / Unknown 07/19/2021 2:56 AM EDT 07/19/2021 3:09 AM EDT us Marietta Wilhelm NP LAB BLOOD ORDERABLES Final Result [facility] [address] [place] [address], from Last 3 Months or Most Recently Relevant to Health Maintenance Insurance [employer]ICA[employer] Advance Directives * Full Code (Latest Code Status on File) Date Activated Date Inactivated Comments 07/15/2021 3:20 AM 07/19/2021 5:11 PM Care Teams Communication Specialist Relationship Specialty Start Date End Date Disha Callejas MD PCP - General Family Medicine 04/27/20
--- OUTSIDE RECORDS SUMMARY | 2025-04-26 10:42 | XMS_ITS | Encounter Summary ---
Author Organization [facility] Address [address] [place] [address] Care Team Providers Care Film Projector Operator Name Role Phone Kathy Hair MD Primary Care Provide r Reason for Visit * Reason Onset Date Comments Hospital Follow-up 03/29/2025 Encounter Details Date Type Department Care Team (Late st Contact Info) Description 03/29/2025 Telephone [facility] [address] [place], [place] [phone] Kathy Hair MD [address] [place], [place] [phone] Hospital Follow-up Social History Tobacco Use Types [...] from pt requesting a HDF appt. Hospital: [facility] Date of admission: 03/08 Discharge date: 03/25 Diagnosed: Diverticulitis *Send message to [place] Clinical Care Coordinators Contact pt at [phone] Number pt call [phone] documented in this encounter Plan of Treatment Not on file documented as of this encounter Visit Diagnoses Not on filedocumented in this encounter Additional Health Concerns Assessment Noted Time PHQ-9 Depression Total Score: 0 09/15/20 10:07 AM EST documented as of this encounter Care Teams Film Projector Operator Relationship Specialty Start Date End Date Kathy Hair MD [address] [place] [address] PCP - General Internal Medicine [facility] documented as of this encounter
[2025-04-26 11:33] VITALS: BP 128/76
== END 2025-04-26 10:23 | disposition home or self-care (01) ==
LOC: HO.HGS 10:04
PROVIDERS: PCP Internal Medicine
DX: Z93.3 Colostomy status (principal); S31.109A Unspecified open wound of abdominal wall, unspecified quadrant without penetration into peritoneal cavity, initial encounter
CPT/HCPCS: 99024

== ENCOUNTER → 2025-04-26 10:04 | Outpatient (BNVA) | payer MEDICAID, SELFPAY | PROVIDERS: PCP Internal Medicine | DX: Z93.3 Colostomy status (principal); S31.109A Unspecified open wound of abdominal wall, unspecified quadrant without penetration into peritoneal cavity, initial encounter | CPT/HCPCS: 99212 ==

== ENCOUNTER 2025-05-10 09:48 | Outpatient (AMB) | payer MEDICAID, SELFPAY ==
--- NOTE | 2025-05-10 10:08 | A.OFFVIS_ITS ---
Vital Signs 05/10/25 10:14 Height 6 ft Weight 236 lb BMI 32.0 BP 141/75 H Blood Pressure Location Rt brachial Position Sitting Pulse 75 Intake Visit Reasons: 2wk follow up wound check Intake Note: Patien here for 2wk follow up abdominal wall wound check. Patient c/o: smaller bottom incision healing but it is open. Denies pain, oozing, discomfort. Reports ostomy working well. VNA twice a wk. Control Specialist Required: Yes Control Specialist Services: Control Specialist Offered & Declined Accompanied by: Self / Same As Patient Allergies No Known Allergies Allergy (Mild, Verified 05/10/25 10:14) NONE HPI HPI 2wk follow up wound check: Details: Control Specialist declines, patient expressed understanding of our conversation and plan. he is doing well. Managing his wound care at home, continuing packing. states the inferior tracking of the wound is unchanged. the superior aspect is mostly closed. Denies discharge, green tinged to bandage is resolved. requesting a flat ostomy bag, states the convex bag is struggling to stay on now because his body has changed. The ostomy is otherwise functioning properly. apetite is at baseline. denies fever or chills. 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 Previous superior tracking of the wound is now about half a cm. Inferior tracking is remaining 4 cm, probed with a Q-tip. No green coloration noted Ostomy in place, stoma pink well-perfused. Stool in bag Inspection: No distended Palpation (GI): Soft to palpation, nontender and no guarding Neuro General: patient oriented x3 Assessment & Plan Assessment & Plan (1) Status post Nick procedure: Code(s): Z93.3 - Colostomy status Category: Surgical (2) Wound, open, abdominal wall, anterior: Code(s): S31.109A - Unspecified open wound of abdominal wall, unspecified quadrant without penetration into peritoneal cavity, initial encounter Category: Medical Qualifiers: Encounter type: subsequent encounter Qualified Code(s): S31.109D - Unspecified open wound of abdominal wall, unspecified quadrant without penetration into peritoneal cavity, subsequent encounter (3) Open abdominal wall wound: Code(s): S31.109A - Unspecified open wound of abdominal wall, unspecified quadrant without penetration into peritoneal cavity, initial encounter Category: Medical Qualifiers: Encounter type: subsequent encounter Qualified Code(s): S31.109D - Unspecified open wound of abdominal wall, unspecified quadrant without penetration into peritoneal cavity, subsequent encounter Plan 54-year-old male s/p exploratory laparotomy, Nick's procedure, postoperative extraperitoneal subcutaneous abscess returning to the office for postop evaluation and wound check. Patient continues to do well, he has been continuing wound care at home, has VNA 2 times per week. Continues wound care with packing daily, primarily in the inferior tracking of the wound. Inferior tracking largely unchanged. His appetite and bowel function are at baseline, his ostomy has good output in his functioning properly. However the bag was originally a convex bag but this has been having difficulty adhering, he would like to try flat bag. We will relay this to our nurse Osmany who orders supplies for patients. On exam his abdomen is soft and benign. The midline incision wound is now about 2 cm wide and 3 cm long. There is 0.5 cm of tracking superiorly and 4 cm tracking inferiorly. I was unable to appreciate any of the green color, he reports he has not been noticing this anymore The wound bed appears to have hypergranulation tissue and there was minimal bloody discharge in the wound. I used betadine to prep the wound border and surrounding skin to prevent further colonization of pseudemonas. I used quarter-inch packing to pack the inferior aspect and the rest of the wound, this was covered with 1 4 x 4 gauze and tape. Activity restrictions remain in place. Overall the patient is improving, we will continue with wound care and packing while this wound continues to close. Patient will continue with daily dressing changes and will follow up for nursing visit. In lieu of eventual reversal we will order for colonoscopy via rectum and stoma. He will follow up with me in 2 weeks or sooner as needed. Coding Level of Care Code Global (10999) Diagnoses Status post Nick procedure Z93.3 Open wound of anterior abdominal wall, subsequent encounter S31.109D Encounter type: subsequent encounter Open wound of abdominal wall, subsequent encounter S31.109D Encounter type: subsequent encounter
[2025-05-10 10:14] VITALS: BP 141/75; PULSE 75; BMI 32.0
--- OUTSIDE RECORDS SUMMARY | 2025-05-10 10:30 | XMS_ITS | Encounter Summary ---
Author Organization [employer] Address [address] [place] [address] Care Team Providers Care Information Technology Advisor Name Role Phone Kathy Hair MD Primary Care Provide r Reason for Visit * Reason Onset Date Comments Hospital Follow-up 03/29/2025 Encounter Details Date Type Department Care Team (Late st Contact Info) Description 03/29/2025 Telephone [facility] [address] [place], [place] [phone] Kathy Hair MD [address] [place], [place] [phone] Hospital Follow-up Social History Tobacco Use Types [...] from pt requesting a HDF appt. Hospital: [facility] Date of admission: 03/08 Discharge date: 03/25 Diagnosed: Diverticulitis *Send message to [place] Clinical Care Coordinators Contact pt at [phone] Number pt call [phone] documented in this encounter Plan of Treatment Not on file documented as of this encounter Visit Diagnoses Not on filedocumented in this encounter Additional Health Concerns Assessment Noted Time PHQ-9 Depression Total Score: 0 09/15/20 10:07 AM EST documented as of this encounter Care Teams Information Technology Advisor Relationship Specialty Start Date End Date Kathy Hair MD [address] [place] [address] PCP - General Internal Medicine [facility] documented as of this encounter
--- OUTSIDE RECORDS SUMMARY | 2025-05-10 10:30 | XMS_ITS | Clinical Summary ---
Author Organization [facility] Address [address] [place] [address] Care Team Providers Care Press Service Reader Name Role Phone Disha Callejas MD Primary [...] Health Yaneth ual Screening 09/23/2024 Influenza Vaccine (#1) 2025 0, 07/23/2018, 07/22/2017, Additional history exists DTaP,Tdap,and Td [...] - 145 mmol/L 07/19/2021 3:39 AM EDT [facility] K 3.9 3.5 - 5.3 mmol/L 07/19/2021 3:39 AM EDT [facility] Cl 103 97 - 110 mmol/L 07/19/2021 3:39 AM EDT [facility] CO2 25 24 - 32 mmol/L 07/19/2021 3:39 AM EDT [facility] Anion Gap 8 5 - 15 07/19/2021 3:39 AM EDT [facility] Glucose 138(H) 70 - 99 mg/dL 07/19/2021 3:39 AM EDT [facility] Creatinine 0.99 0.60 - 1.30 mg/dL 07/19/2021 3:39 AM EDT [facility] eGFR Non- 88(L) >=90 mL/min/BS A 07/19/2021 3:39 AM EDT [facility] eGFR >90 >=90 mL/min/BS A 07/19/2021 3:39 AM EDT [facility] Comment: Units = mL/min/1.73 m2 Glomerular Filtration Rate (GFR) is estimated based on the CKD-EPI Creatinine Equation (2009). Stage Description GFR 1 Normal >=90 mL/min/BSA 2 Mildly decreased GFR 60-89 mL/min/BSA 3 Moderately decreased GFR 30-59 mL/min/BSA 4 Severely decreased GFR 15-29 mL/min/BSA 5 Kidney Failure <15 mL/min/BSA Calcium 8.7 8.7 - 10.7 mg/dL 07/19/2021 3:39 AM EDT [facility] Total Protein 7.3 6.0 - 8.0 g/dL 07/19/2021 3:39 AM EDT [facility] Albumin 3.5 3.5 - 4.8 g/dL 07/19/2021 3:39 AM EDT [facility] Bilirubin, Total 0.2(L) 0.3 - 1.2 mg/dL 07/19/2021 3:39 AM EDT [facility] Alkaline Phosphatase 46 30 - 115 U/L 07/19/2021 3:39 AM EDT [facility] AST 13 10 - 40 U/L 07/19/2021 3:39 AM EDT [facility] ALT 16 10 - 40 U/L 07/19/2021 3:39 AM EDT [facility] BUN 29(H) 7 - 23 mg/dL 07/19/2021 3:39 AM EDT [facility] Blood Structure of peripheral vein / Unknown Venipuncture / Unknown 07/19/2021 2:56 AM EDT 07/19/2021 3:09 AM EDT Marietta Wilhelm QUENCHING MACHINE OPERATOR LAB BLOOD ORDERABLES Final Result [facility] [address] from Last 3 Months or Most Recently Relevant to Health Maintenance Insurance [facility] MEDICAID Advance Directives * Full Code (Latest Code Status on File) Date Activated Date Inactivated Comments 07/15/2021 3:20 AM 07/19/2021 5:11 PM Care Teams Press Service Reader Relationship Specialty Start Date End Date Disha Callejas MD PCP - General Family Medicine 04/27/20
== END 2025-05-10 10:30 | disposition home or self-care (01) ==
LOC: HO.HGS 09:49
PROVIDERS: PCP Internal Medicine
DX: Z93.3 Colostomy status (principal); S31.109D Unspecified open wound of abdominal wall, unspecified quadrant without penetration into peritoneal cavity, subsequent encounter
CPT/HCPCS: 99024

== ENCOUNTER → 2025-05-10 09:48 | Outpatient (BNVA) | payer MEDICAID, SELFPAY | PROVIDERS: PCP Internal Medicine | DX: S31.109D Unspecified open wound of abdominal wall, unspecified quadrant without penetration into peritoneal cavity, subsequent encounter (principal); Z93.3 Colostomy status; Y83.8 Other surgical procedures as the cause of abnormal reaction of the patient, or of later complication, without mention of misadventure at the time of the procedure | CPT/HCPCS: 99212 ==

== ENCOUNTER 2025-06-08 14:05 | Outpatient (AMB) | payer MEDICAID, SELFPAY ==
--- NOTE | 2025-06-08 14:11 | A.OFFVIS_ITS ---
Vital Signs 06/08/25 14:14 Height 6 ft Weight 235 lb 14.314 oz BMI 32.0 Respiration 16 Intake Visit Reasons: one month post, exploratory laparotomy Intake Note: Patient is seen in office for one month follow up visit, post exploratory laparotomy. Pt c/o: denies any concerns Bulk Clerk Required: Yes Bulk Clerk Services: Bulk Clerk Offered & Declined Accompanied by: Self / Same As Patient Allergies No Known Allergies Allergy (Mild, Verified 06/08/25 14:14) NONE HPI Comments Details: 55-year-old male patient status post Nick procedure for perforated sigmoid diverticulitis performed on 03/09/2025. Patient's postoperative course complicated by wound opening in the lower incision. Overall he feels the wounds have improved but he does note bleeding with packing the opening. He denies any fever or chills. He is eating well and denies nausea, vomiting, diarrhea or constipation. He is planning on visiting his in the [place] in June would like to have his surgery following this for closure of colostomy. He understands that he will need a colonoscopy prior to the surgery. [facility] Medical History Hypertension Diabetes Renal cancer Dyspnea Chest pain Abnormal chest x-ray Hemoptysis Surgical History H/O exploratory laparotomy (03/09/25) Social History Household Members: Family Housing: Apartment Do you presently have visiting nurse or other home services: No Alcohol intake: never Patient Tobacco Use Status: Never used Tobacco e-Cigarette/Vaping Use: Never Used service: No Current occupational status: employed Current occupation: [employer] Review of Systems Const All systems reviewed & are unremarkable except as noted in HPI and below Physical Exam Vital Signs: Last Vital Signs Resp 16 06/08/25 14:14 BMI result Body Mass Index 32.0 Const General: no acute distress Nutritional Appearance: well nourished Orientation/consciousness: patient oriented x3 Limitations: no limitations Resp Effort & Inspection: normal respiratory effort, no audible wheezes, no cough and no respiratory distress GI Other: Ostomy in the left lower quadrant is patent and functioning properly. The lower midline incision reveals a deep narrow channel with granulation tissue at the margins. Packing was removed and no evidence of underlying infection is identified. There is some retraction of the incision from the persistent scarring. Packing was removed and dry sterile dressings applied. Inspection: Yes normal to inspection Palpation (GI): Soft to palpation, nontender, no guarding and not rigid Neuro General: patient oriented x3 Extrem General: Yes no clubbing, cyanosis or edema Assessment & Plan Assessment & Plan (1) Status post Nick procedure: Code(s): Z93.3 - Colostomy status Category: Surgical Plan 55-year-old male patient with a prior history of perforated sigmoid diverticulitis now presenting for discussion regarding closure of colostomy. I reviewed the procedure, risks and alternatives in detail and he consents to a hand assisted laparoscopic or possible open closure of colostomy. He will require colonoscopy through the colostomy and rectum prior to the procedure. I asked Dr. Main if he would be able to do the colonoscopy and he is agreeable. If possible we will try to coordinate this at the same time as the surgical procedure to avoid the need for repeat bowel prep. Coding Level of Care Code Global (59370) Diagnoses Status post Nick procedure Z93.3
[2025-06-08 14:14] VITALS: RESP 16; BMI 32.0
--- OUTSIDE RECORDS SUMMARY | 2025-06-08 17:56 | XMS_ITS | Encounter Summary ---
Author Organization [employer] Address [address] [place] [address] Care Team Providers Care Steeping Press Tender Name Role Phone Kathy Hair MD Primary Care Provide r Reason for Visit * Reason Comments Med Refill Encounter Details Date Type Department Care Team (Late Contact Info) Description 06/22/2024 Refill [facility] [address] [place] [phone] Name, MD Wenceslao [address] [place] [phone] Social History Tobacco Use Types Packs/Day Years [...] Department Care Team (Late Contact Info) Description 07/27/2025 9:00 AM EST Office Visit [facility] [address] [place] [phone] Kathy Hair MD [address] [place] [phone] documented as of this encounter Visit Diagnoses Not on filedocumented in this encounter Care Teams Steeping Press Tender Relationship Specialty Start Date End Date Kathy Hair MD [address] [place] [phone] PCP - General Internal Medicine 09/15/24 Maikel RODRIGUEZ 04/11/25 documented as of this encounter
--- OUTSIDE RECORDS SUMMARY | 2025-06-08 17:56 | XMS_ITS | Encounter Summary ---
Author Organization [employer] [facility] Address [address] [place] [address] Care Team Providers Care Shell Molder Name Role Phone Kathy Hair MD Primary Care Provide r Reason for Visit * Reason Comments Med Refill Encounter Details Date Type Department Care Team ([facility] Contact Info) Description 01/10/2024 Refill [facility] [address] [place] [address] Annelise Joseph FNP [address] [place] [address] Social History Tobacco Use Types Packs/Day Years [...] Description 07/27/2025 9:00 AM EST Office Visit [facility] [address] [place] [address] Kathy Hair MD [address] [place] [phone] documented as of this encounter Visit Diagnoses Not on filedocumented in this encounter Care Teams Shell Molder Relationship Specialty Start Date End Date Kathy Hair MD [address] [place] [phone] PCP - General Internal Medicine 09/15/24 Maikel RODRIGUEZ 04/11/25 documented as of this encounter
--- OUTSIDE RECORDS SUMMARY | 2025-06-08 17:56 | XMS_ITS | Encounter Summary ---
Author Organization [employer] [facility] Address [address] [facility] 7 [place] [address] Care Team Providers Care Household Appliances Salesperson Name Role Phone Kathy Hair MD Primary Care Provide r Reason for Visit * Reason Comments Med Refill Encounter Details Date Type Department Care Team (Late Contact Info) Description 04/21/2024 Refill [facility] [address] [place] [address] [phone] Name, MD Wenceslao [address] [place] [phone] Essential hypertension Social History Tobacco Use Types [...] Care Team (Late st Contact Info) Description 07/27/2025 9:00 AM EST Office Visit [facility] [address] [place] [phone] Katyh Hair MD [address] [place] [address] [phone] documented as of this encounter Visit Diagnoses Diagnosis Essential hypertension Unspecified essential hypertension documented in this encounter Care Teams Household Appliances Salesperson Relationship Specialty Start Date End Date Kathy Hair MD [address] [place] [phone] PCP - General Internal Medicine 09/15/24 Maikel RODRIGUEZ 04/11/25 documented as of this encounter
--- OUTSIDE RECORDS SUMMARY | 2025-06-08 17:57 | XMS_ITS | Encounter Summary ---
Author Organization [employer] Address [address] [place] [address] Care Team Providers Care Jar Filler Name Role Phone Kathy Hair MD Primary Care Provide r Reason for Visit * Reason Comments Med Refill Encounter Details Date Type Department Care Team (Late Contact Info) Description 07/15/2024 Refill [facility] [address] [place] [phone] Kenan Mays MD [address] [place] [address] Essential hypertension Social History Tobacco Use Types [...] Description 07/27/2025 9:00 AM EST Office Visit [facility] [address] [place] [phone] Kathy Hair MD [address] [place] [phone] documented as of this encounter Visit Diagnoses Diagnosis Essential hypertension Unspecified essential hypertension documented in this encounter Care Teams Jar Filler Relationship Specialty Start Date End Date Kathy Hair MD [address] [place] [phone] PCP - General Internal Medicine 09/15/24 Maikel RODRIGUEZ 04/11/25 documented as of this encounter
--- OUTSIDE RECORDS SUMMARY | 2025-06-08 17:57 | XMS_ITS | Encounter Summary ---
Author Organization [employer] Address [address] [place] [address] Care Team Providers Care Pediatric Genetic Counselor Name Role Phone Kathy Hair MD Primary Care Provide r Reason for Visit * Reason Comments Med Refill Encounter Details Date Type Department Care Team (Late Contact Info) Description 07/15/2024 Refill [facility] [address] [place] [phone] Kenan Mays MD [address] [place] [address] Essential hypertension Social History Tobacco Use Types [...] Description 07/27/2025 9:00 AM EST Office Visit [facility] [address] [place] [phone] Kathy Hair MD [address] [place] [phone] documented as of this encounter Visit Diagnoses Diagnosis Essential hypertension Unspecified essential hypertension documented in this encounter Care Teams Pediatric Genetic Counselor Relationship Specialty Start Date End Date Kathy Hair MD [address] [place] [phone] PCP - General Internal Medicine 09/15/24 Maikel RODRIGUEZ 04/11/25 documented as of this encounter
--- OUTSIDE RECORDS SUMMARY | 2025-06-08 17:57 | XMS_ITS | Encounter Summary ---
Author Organization [employer] Address [address] 7[address] [place] [address] Care Team Providers Care Vest Front Presser Name Role Phone Kathy Hair MD Primary Care Provide r Reason for Visit * Reason Comments Med Refill Encounter Details Date Type Department Care Team (Late Contact Info) Description 07/15/2024 Refill [facility] [address] [place] [phone] Kenan Mays MD [address] [place] [address] Essential hypertension Social History Tobacco Use Types [...] Description 07/27/2025 9:00 AM EST Office Visit [facility] [address] [place] [phone] Kathy Hair MD [address] [place] [phone] documented as of this encounter Visit Diagnoses Diagnosis Essential hypertension Unspecified essential hypertension documented in this encounter Care Teams Vest Front Presser Relationship Specialty Start Date End Date Kathy Hair MD [address] [place] [phone] PCP - General Internal Medicine 09/15/24 Maikel RODRIGUEZ 04/11/25 documented as of this encounter
--- OUTSIDE RECORDS SUMMARY | 2025-06-08 17:57 | XMS_ITS | Encounter Summary ---
Author Organization 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 EFFECTIVE SINCE 06/28/2023 documented in this encounter Plan of Treatment Upcoming Encounters Date Type Department Care Team (Late st Contact Info) Description 07/27/2025 9:00 AM EST Office Visit [facility] [address] [place] [phone] Kathy Hair MD [address] [place] [address] documented as of this encounter Visit Diagnoses Not on filedocumented in this encounter Care Teams Seat Coverer Relationship Specialty Start Date End Date Kathy Hair MD [address] [place] [address] PCP - General Internal Medicine 09/15/24 Maikel TINOCOA 04/11/25 documented as of this encounter
--- OUTSIDE RECORDS SUMMARY | 2025-06-08 17:57 | XMS_ITS | Clinical Summary ---
Author Organization [facility] Address [address] [place] [address] Care Team Providers Care Before And After School Daycare Worker Name Role Phone Disha Callejas MD Primary [...] 07/19/2021 , 07/18/2021, 07/17/2021, Additional history exists Alcohol/Substance Use Screening 09/23/2024 Depression Screening and Follow-Up 09/23/2024 Social Drivers of Health Yaneth ual Screening 09/23/2024 COVID-19 Vaccine (3 - 2024-2 6 season) 2025 02/01/2021, 01/11/2021 Influenza Vaccine (#1) 2025 0, 07/23/2018, 07/22/2017, Additional history exists DTaP,Tdap,and Td Vaccines (2 - Td or Tdap) 06/16/2030 06/16/2020, 09/30/2010, 09/30/2010 RSV Vaccine (60+ years old a nd patients) (1 - 1-dose 75+ series) 2045 Procedures * Due to [place] state law, this organization might not be sharing negative HIV tests. Procedure Name Priority Date/Time Associated Diagnosis Comments COMPREHENSIVE METABOLIC PANEL Routine 07/19/2021 2:56 AM EDT from Last 3 Months or Most Recently Relevant to Health Maintenance Results * Due to [place] state law, this organization might not be sharing negative HIV tests. * (ABNORMAL) Comprehensive Metabolic Panel (07/19/2021 2:56 AM EDT) NA 136 135 - 145 mmol/L 07/19/2021 3:39 AM EDT [facility] K 3.9 3.5 - 5.3 mmol/L 07/19/2021 3:39 AM EDT [facility] Cl 103 97 - 110 mmol/L 07/19/2021 3:39 AM EDT [facility] CO2 25 24 - 32 mmol/L 07/19/2021 3:39 AM EDT [facility] Anion Gap 8 5 - 15 07/19/2021 3:39 AM EDT [facility] Glucose 138(H) 70 - 99 mg/dL 07/19/2021 3:39 AM EDT [facility] Creatinine 0.99 0.60 - 1.30 mg/dL 07/19/2021 3:39 AM EDT [facility] eGFR Non- 88(L) >=90 mL/min/BS A 07/19/2021 3:39 AM EDT [facility] eGFR >90 >=90 mL/min/BS A 07/19/2021 3:39 AM EDT [facility] Comment: Units = mL/min/1.73 m2 Glomerular Filtration Rate (GFR) is estimated based on the CKD-EPI Creatinine Equation (2009). Stage Description GFR 1 Normal >=90 mL/min/BSA 2 Mildly decreased GFR 60-89 mL/min/BSA 3 Moderately decreased GFR 30-59 mL/min/BSA 4 Severely decreased GFR 15-29 mL/min/BSA 5 Kidney Failure <15 mL/min/BSA Calcium 8.7 8.7 - 10.7 mg/dL 07/19/2021 3:39 AM EDT [facility] Total Protein 7.3 6.0 - 8.0 g/dL 07/19/2021 3:39 AM EDT [facility] Albumin 3.5 3.5 - 4.8 g/dL 07/19/2021 3:39 AM EDT [facility] Bilirubin, Total 0.2(L) 0.3 - 1.2 mg/dL 07/19/2021 3:39 AM EDT [facility] Alkaline Phosphatase 46 30 - 115 U/L 07/19/2021 3:39 AM EDT [facility] AST 13 10 - 40 U/L 07/19/2021 3:39 AM EDT [facility] ALT 16 10 - 40 U/L 07/19/2021 3:39 AM EDT [facility] BUN 29(H) 7 - 23 mg/dL 07/19/2021 3:39 AM EDT [facility] Blood Structure of peripheral vein / Unknown Venipuncture / Unknown 07/19/2021 2:56 AM EDT 07/19/2021 3:09 AM EDT Marietta Wilhelm ETCHER APPRENTICE LAB BLOOD ORDERABLES Final Result [facility] [address] from Last 3 Months or Most Recently Relevant to Health Maintenance Insurance [facility] MEDICAID Advance Directives * Full Code (Latest Code Status on File) Date Activated Date Inactivated Comments 07/15/2021 3:20 AM 07/19/2021 5:11 PM Care Teams Before And After School Daycare Worker Relationship Specialty Start Date End Date Disha Callejas MD PCP - General Family Medicine 04/27/20
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
--- OUTSIDE RECORDS SUMMARY | 2025-06-08 17:57 | XMS_ITS | Encounter Summary ---
Author Organization [employer] Address [address] [place] [address] Care Team Providers Care Furnace Combustion Tester Name Role Phone Kathy Hair MD Primary Care Provide r Reason for Visit * Reason Comments Med Change Request Encounter Details Date Type Department Care Team ([facility] st Contact Info) Description 02/10/2025 Refill [facility] [address] [place] [address] Kenan Mays MD [address] [place] [phone] Social History Tobacco Use Types Packs/Day Years [...] Description 07/27/2025 9:00 AM EST Office Visit [facility] [address] [place] [phone] Kathy Hair MD [address] [place] [phone] documented as of this encounter Visit Diagnoses Not on filedocumented in this encounter Additional Health Concerns Assessment Noted Time PHQ-9 Depression Total Score: 0 09/15/20 10:07 AM EST documented as of this encounter Care Teams Furnace Combustion Tester Relationship Specialty Start Date End Date Kathy Hair MD [address] [place] [phone] PCP - General Internal Medicine [facility] documented as of this encounter
== END 2025-06-08 14:24 | disposition home or self-care (01) ==
LOC: HO.HGS 14:06
PROVIDERS: PCP Internal Medicine; Visit Provider Surgery
DX: Z93.3 Colostomy status (principal)
CPT/HCPCS: 99024

== ENCOUNTER → 2025-06-08 14:05 | Outpatient (BNVA) | payer MEDICAID, SELFPAY | PROVIDERS: PCP Internal Medicine; Visit Provider Surgery | DX: Z01.818 Encounter for other preprocedural examination (principal); Z93.3 Colostomy status | CPT/HCPCS: 99212 ==

== ENCOUNTER 2025-06-14 12:38 | Emergency (ER) | payer MEDICAID, SELFPAY ==
[2025-06-14 12:51] VITALS: BP 154/82; PULSE 66; RESP 16; TEMP 36.7; O2SAT 99; BMI 23.0
--- NOTE | 2025-06-14 12:54 | ED.GENADULT ---
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 Patient reports having a headache for the last 3 days or so. He reports a gradual onset of the headache, no thunderclap headache. He denies any trauma to the head or neck, denies any falls. His headache is described as mostly posterior radiating over the top of his head. He reports some pressure behind his eyes but no eye pain or blurry vision pain He was complain of some mild dizziness He was not anticoagulated He was not taking any medications to help alleviate his symptoms. On review of his record he had a head CT in January of this year due to a headache which did not show any acute intracranial abnormalities. The patient rates his pain as a /10 Related Data Home Medications ?Medication ?Instructions ?Recorded ?Confirmed hydrochlorothiazide 25 mg tablet 25 mg PO DAILY 09/29/24 03/08/25 ciclopirox 8 % topical solution 1 appl topical BEDTIME PRN Fungal 03/08/25 03/08/25 Infection cyclobenzaprine 10 mg tablet 10 mg PO BEDTIME PRN pain 03/08/25 03/08/25 Previous Rx's ?Medication ?Instructions ?Recorded lisinopril 40 mg tablet 40 mg PO DAILY #30 tabs 06/26/23 metoprolol succinate 25 mg 25 mg PO DAILY #30 tabs 06/26/23 tablet,extended release 24 hr docusate sodium 100 mg capsule 100 mg PO BID #30 caps 03/17/25 (Colace) mupirocin 2 % topical ointment 1 appl topical TID 4 days #15 grams 03/17/25 (Centany) mupirocin 2 % topical ointment 1 appl topical TID 4 days #15 grams 03/17/25 (Centany) docusate sodium 100 mg capsule 100 mg PO BID #30 caps 03/25/25 (Colace) marhyfwgku-ypcumxxtpmwhu-rzyfhqkf 1 cap PO Q4-6H PRN headache #12 06/14/25 50 mg-300 mg-40 mg capsule caps (Fioricet) Allergies Allergy/AdvReac Type Severity Reaction Status Date / Time No Known Allergies Allergy Mild NONE Verified 06/14/25 12:51 Review of Systems Constitutional: Constitutional: Denies body ache(s), Denies chills, Denies fever(s) and Reports headache(s) Eyes: Eyes: Denies blurry vision, Denies loss of vision and Denies eye pain ENT: Denies vertigo, Reports dizziness and Reports headache(s) Cardiovascular: Cardiovascular: Denies chest pain and Denies dyspnea on exertion Respiratory: Respiratory: Denies cough and Denies dyspnea on exertion Gastrointestinal: Gastrointestinal: Denies abdominal pain, Denies nausea and Denies vomiting Musculoskeletal: Musculoskeletal: Denies numbness Integumentary/Breasts: Skin/Breast: Denies rash Neurologic: Denies vertigo, Reports dizziness, Reports headache(s), Denies focal weakness, Denies loss of vision and Denies numbness PMFSH Past Medical History Medical History Hypertension Diabetes Renal cancer Dyspnea Chest pain Abnormal chest x-ray Hemoptysis Surgical History H/O exploratory laparotomy (03/09/25) Social History Social History Household Members: Family Housing: Apartment Do you presently have visiting nurse or other home services: No Alcohol intake: never Patient Tobacco Use Status: Never used Tobacco e-Cigarette/Vaping Use: Never Used Advance Directives: No Advance Directives Information Provided: Yes service: No Current occupational status: employed 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 Physical Exam ED Vital Signs: Vital Signs - 24 hr 06/14/25 12:51 06/14/25 16:15 Temperature 98.0 F 98.3 F Pulse Rate 66 64 Respiratory Rate 16 16 Blood Pressure 154/82 H 130/77 Pulse Oximetry 99 95 Oxygen Delivery Method Room Air Room Air BMI result Body Mass Index 23.0 Const General: healthy appearing, comfortable, no acute distress, alert and awake Nutritional Appearance: well nourished Orientation/consciousness: patient oriented x3 HENMT Head: Yes normocephalic and Yes atraumatic Eyes Eyelids: Yes eyelids normal Conjunctivae: conjunctivae normal Sclerae: sclerae normal Corneas: corneas normal Pupils: Equal, round and reactive pupils present EOM: EOMs intact bilaterally Neck Neck: Yes full ROM Resp Effort & Inspection: normal respiratory effort, able to speak in complete sentences and not labored Skin General skin exam: elasticity normal Neuro General: patient oriented x3 Cranial nerves: Yes CN's II-XII intact bilaterally, Yes Equal, round and reactive pupils present and Yes Bilaterally intact EOM present Cognition (Neuro): normal cognition Extrem Other: Moving all extremities well without any obvious deformities Course Course Course Narrative: This is a Rapid Medical Examination (RME) performed by Eric Rush PA-C in triage. Full HPI, ROS, assessment and treatment plan per primary provider in the Main ED. Hx: 55 yo M here for eval of headache, pressure behind both eyes, and mild dizziness x3 days. unable to described dizzy sensation. assoc fatigue. Plan: labs, vital swabs Reevaluation(s) Reevaluation #1: Patient reports feeling better after Toradol and Fioricet, we will discharge him with Fioricet Time: 17:18 Medications Administered Discontinued Medications Generic Name Dose Route Start Last Admin Trade Name Freq PRN Reason Stop Dose Admin Acetaminophen/Butalbital/Caffeine 1 tab 06/14/25 16:28 06/14/25 16:45 Butalb/Acetamin/Caff 50/325/40 Tablet PO 06/14/25 16:29 1 tab ONCE ONE Administration Ketorolac Tromethamine 30 mg 06/14/25 16:30 06/14/25 16:45 Ketorolac Tromethamine 30 Mg/Ml Vial IM 06/14/25 16:31 30 mg ONCE ONE Administration Medical Decision Making Medical Decision Making [facility] Narrative: 55-year-old male with a past medical history as above presents for evaluation of a headache. This was a gradual onset of headache, no thunderclap headache, less likely subarachnoid hemorrhage. The patient has no fever or upper respiratory symptoms to suggest infectious cause of his headache. He would labs are ordered and are relatively unremarkable, I added on an ESR which was within normal limits, less likely temporal arteritis. There was no trauma she was suggest subdural hematoma. Given the patient's reassuring exam, mild symptoms in his actually had a CT scan in January, I deferred additional imaging at this time. We will treat his headache with Fioricet and Toradol. Differential Diagnosis Differential Diagnoses: The differential diagnosis associated with the presentation includes Acute headache Subarachnoid hemorrhage Subdural hematoma Migraine Temporal arteritis Lab Data MDM Lab Attestation statement: I reviewed the patient's lab results. No leukocytosis or significant anemia. Normal platelet count. No significant electrolyte abnormalities warranting dimension. The patient's carbon dioxide level is elevated to 32 which could be related to obstructive sleep apnea 06/14/25 13:22 06/14/25 13:22 Labs: Lab Results 06/14/25 Range/Units 13:22 WBC 5.7 (4.8-10.8) X10*3/uL RBC 4.77 D (4.60-5.80) X10*6/uL Hgb 14.0 D (14.0-18.0) g/dl Hct 41.4 L D (42.0-52.0) % MCV 86.8 (80.0-98.0) fL MCH 29.4 (27.0-33.0) pg MCHC 33.8 (31.0-36.0) g/dl RDW 13.5 (11.0-16.0) % Plt Count 267 D (160-400) X10*3/uL MPV 10.8 (9.4-12.4) fL Immature Gran % (Auto) 0.2 (0.0-0.4) % Neut % (Auto) 55.8 (45-73) % Lymph % (Auto) 30.4 (20-40) % [place] % (Auto) 11.1 H (2-11) % Eos % (Auto) 1.6 (0-4) % Baso % (Auto) 0.9 (0-2) % Lymph # (Auto) 1.7 (1.2-4.9) X10*3/uL [place] # (Auto) 0.6 (0.1-1.2) X10*3/uL Eos # (Auto) 0.1 (0.0-0.4) X10*3/uL Baso # (Auto) 0.1 (0.0-0.2) X10*3/uL Abs Immat Gran (auto) 0.01 (0.00-0.03) X10*3/uL Absolute Neuts (auto) 3.2 (2.0-8.3) x10*3/uL Absolute Nucleated RBC 0.000 (0.0-0.012) X10*3/uL Nucleated RBC % (auto) 0.0 (0.0-0.2) /100WBC ESR 7 (0-15) MM/HR Sodium 140 (135-145) mmol/L Potassium 3.8 (3.3-5.1) mmol/L Chloride 102 (96-108) mmol/L Carbon Dioxide 32 H (22-29) mmol/L Anion Gap 10 L (12-20) BUN 13 (9-16) mg/dL Creatinine 0.75 (0.5-1.4) mg/dL Estim Creat Clear Calc 117.8 Estimated GFR > 60 Random Glucose 104 (60-115) mg/dL Calcium 9.3 (8.4-10.2) mg/dL Magnesium 2.0 (1.6-2.6) mg/dL Total Bilirubin 0.4 (0.0-1.0) mg/dL AST 26 (5-37) U/L ALT 37 (0-40) U/L Alkaline Phosphatase 56 (39-117) U/L Total Protein 7.4 (6.5-8.0) g/dL Albumin 4.0 (3.5-5.0) g/dL COVID-19 (WEI) Negative (Negative) COVID-19 Clin Com See Note Influenza Type A (ANAY) Negative (Negative) Influenza Type B (ANAY) Negative (Negative) Influenza A & B Note See Note Tests considered The following testing was considered but not selected: Consider CT scan of the brain but this was deferred due to reassuring exam and a recent head CT 4 months ago Discharge Plan Discharge Clinical Impression: Headache Patient Disposition: Home, Self-Care Instructions: Acute Headache (ED) Additional Instructions: Your workup in the ER today was reassuring. You may use Fioricet as needed for further headaches. This medication does contain Tylenol, so you should not take extra Tylenol in addition to this medication This medication may make you drowsy, do not drink alcohol or drive after taking Prescriptions: New xyclybqpmu-ixakmiatbnqtl-jjag [Fioricet] 50-300-40 mg capsule 1 cap PO Q4-6H PRN (Reason: headache) Qty: 12 0RF No Action docusate sodium [Colace] 100 mg capsule 100 mg PO BID Qty: 30 0RF cyclobenzaprine 10 mg tablet 10 mg PO BEDTIME PRN (Reason: pain) ciclopirox 8 % solution 1 appl topical BEDTIME PRN (Reason: Fungal Infection) mupirocin [Centany] 2 % ointment 1 appl topical TID 4 Days Qty: 15 0RF Rx Instructions: Apply to affected area 3 times per day docusate sodium [Colace] 100 mg capsule 100 mg PO BID Qty: 30 0RF mupirocin [Centany] 2 % ointment 1 appl topical TID 4 Days Qty: 15 0RF metoprolol succinate 25 mg tablet extended release 24 hr 25 mg PO DAILY Qty: 30 0RF lisinopril 40 mg tablet 40 mg PO DAILY Qty: 30 0RF hydrochlorothiazide 25 mg tablet 25 mg PO DAILY Print Language: Portuguese
[2025-06-14 13:28] LABS: MANUAL DIFF FLAG NO
[2025-06-14 13:30] LABS: Hematocrit 41.4 % (42.0-52.0); Hemoglobin 14.0 g/dl (14.0-18.0); Imm Gran Abs Auto 0.01 X10*3/uL (0.00-0.03); Imm Gran Pct Auto 0.2 % (0.0-0.4); Lymphocytes Absolute Auto 1.7 X10*3/uL (1.2-4.9); Mean Corpuscular HGB Conc 33.8 g/dl (31.0-36.0); Mean Corpuscular Hemoglobin 29.4 pg (27.0-33.0); Mean Corpuscular Volume 86.8 fL (80.0-98.0); NRBC Abs Auto 0.000 X10*3/uL (0.0-0.012); NRBC Pct Auto 0.0 /100WBC (0.0-0.2); Platelet Count 267 X10*3/uL (160-400); Red Blood Count 4.77 X10*6/uL (4.60-5.80); White Blood Count 5.7 X10*3/uL (4.8-10.8)
[2025-06-14 13:43] LABS: COVID-19 Test Negative (Negative); IDNOW Serial# 55D5AD1C
[2025-06-14 13:44] LABS: Alanine Aminotransferase 37 U/L (0-40); Albumin Level 4.0 g/dL (3.5-5.0); Alkaline Phosphatase 56 U/L (39-117); Anion Gap 10 (12-20); Aspartate Amino Transferase 26 U/L (5-37); Blood Urea Nitrogen 13 mg/dL (9-16); Calcium 9.3 mg/dL (8.4-10.2); Carbon Dioxide 32 mmol/L (22-29); Chloride 102 mmol/L (96-108); Creatinine Clr Calc Pharmacy 117.8; Estimated Glomerular Filt Rate > 60; Magnesium 2.0 mg/dL (1.6-2.6); Potassium 3.8 mmol/L (3.3-5.1); Sodium 140 mmol/L (135-145); Total Protein 7.4 g/dL (6.5-8.0)
[2025-06-14 13:45] LABS: IDNOW Serial# 58CA691E; Influenza B2 Negative (Negative)
[2025-06-14 16:15] VITALS: BP 130/77; PULSE 64; RESP 16; TEMP 36.8; O2SAT 95
[2025-06-14] MEDS: Butalb/Acetamin/Caff 50/325/40 TABLET 1 TAB PO (16:45)
[2025-06-14 17:27] VITALS: BP 130/77; PULSE 64; RESP 16; TEMP 36.8; O2SAT 95
== END 2025-06-14 17:27 | disposition home or self-care (01) ==
PROVIDERS: Physician Assistant; Physician Assistant Medical; Emergency Provider Emergency Medicine; PCP Internal Medicine
DX: R51.9 Headache, unspecified (principal); R42 Dizziness and giddiness; I10 Essential (primary) hypertension; E11.8 Type 2 diabetes mellitus with unspecified complications; Z79.899 Other long term (current) drug therapy
CPT/HCPCS: 80053; 83735; 85025; 85652; 87502; 87635; 96372; 99283; 99284; J1885

== ENCOUNTER 2025-06-21 13:18 | Outpatient (AMB) | payer MEDICAID, SELFPAY ==
--- NOTE | 2025-06-21 13:37 | A.OFFVIS_ITS ---
Vital Signs 06/21/25 13:45 Height 5 ft 11 in Weight 250 lb BMI 34.9 BP 167/81 H Blood Pressure Location Lt brachial Position Sitting Pulse 82 Intake Visit Reasons: 2 wks post exploratory laparotomy Intake Note: Patient is seen in office for 2 week follow up visit, following on exp lap. Pt c/o: denies any concerns Sched Dr Main: 07/28/25 @ 2pm Dip Tanker Required: No Accompanied by: Self / Same As Patient Allergies No Known Allergies Allergy (Mild, Verified 06/21/25 13:47) NONE Medication List - Last Reconciled 06/21/25 by Teodoro Bejarano MD [id number]-cvxygizhfnylf-rnug 50-300-40 mg (Fioricet) 1 cap PO Q4-6H PRN ciclopirox 8% 1 appl topical BEDTIME PRN cyclobenzaprine 10 mg PO BEDTIME PRN docusate sodium (Colace) 100 mg PO BID docusate sodium (Colace) 100 mg PO BID hydrochlorothiazide 25 mg PO DAILY lisinopril 40 mg PO DAILY metoprolol succinate ER 25 mg PO DAILY mupirocin 2% (Centany) 1 appl topical TID 4 days mupirocin 2% (Centany) 1 appl topical TID 4 days HPI Comments Details: 55-year-old male patient status post Nick procedure for perforated sigmoid diverticulitis performed on 03/09/2025. Patient's postoperative course complicated by wound opening in the lower incision. Overall he feels the wounds have improved but he does note bleeding with packing the opening. He denies any fever or chills. He is eating well and denies nausea, vomiting, diarrhea or constipation. He is planning on visiting [place] in June would like to have his surgery following this for closure of colostomy. He understands that he will need a colonoscopy prior to the surgery. His previous colonoscopy in 1999 revealed several polyps and repeat colonoscopy was recommended in 3 years. Arrangements have been made for Dr. Main to evaluate the patient prior to surgery and then schedule him for colonoscopy at the time of his closure of colostomy. 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 Lower midline incision is now completely healed with no packing and no discharge. Inspection: Yes normal to inspection Palpation (GI): Soft to palpation, nontender, no guarding and not rigid Neuro General: patient oriented x3 Extrem General: Yes no clubbing, cyanosis or edema Assessment & Plan Assessment & Plan (1) Status post Nick procedure: Code(s): Z93.3 - Colostomy status Category: Surgical Plan 55-year-old male patient with a prior history of perforated sigmoid diverticulitis now presenting for examination prior to travel to the [facility]. His wounds are clean and intact without redness or discharge. Arrangements have been made for evaluation by Dr. Main for preoperative colonoscopy. If possible we will try to coordinate this at the same time as the surgical procedure to avoid the need for repeat bowel prep. Patient expressed understanding and agrees with the plan. Coding Level of Care Code Est Pt Level 3 (98359) Diagnoses Status post Nick procedure Z93.3
[2025-06-21 13:45] VITALS: BP 167/81; PULSE 82; BMI 34.9
--- OUTSIDE RECORDS SUMMARY | 2025-06-21 14:46 | XMS_ITS | Encounter Summary ---
Author Organization [employer] Address [address] 7[address] [place] [address] Care Team Providers Care Paper Feeder Name Role Phone Kathy Hair MD Primary Care Provide r Reason for Visit * Reason Comments Med Refill Encounter Details Date Type Department Care Team (Late Contact Info) Description 06/22/2024 Refill [facility] [address] [place] [phone] Name, MD Wenceslao [address] [place] [phone] Social History Tobacco Use Types Packs/Day Years [...] Description 07/27/2025 9:00 AM EST Office Visit [facility] [address] [place] [phone] Kathy Hair MD [address] [place] [address] [phone] documented as of this encounter Visit Diagnoses Not on filedocumented in this encounter Care Teams Paper Feeder Relationship Specialty Start Date End Date Kathy Hair MD [address] [place] [address] [phone] PCP - General Internal Medicine 09/15/24 Maikel RODRIGUEZ 04/11/25 documented as of this encounter
--- OUTSIDE RECORDS SUMMARY | 2025-06-21 14:46 | XMS_ITS | Encounter Summary ---
Author Organization [employer] Address [address] [facility] 7 [place] [address] Care Team Providers Care Police Sergeant Precinct Name Role Phone Kathy Hair MD Primary Care Provide r Reason for Visit * Reason Comments Med Refill Encounter Details Date Type Department Care Team (Late Contact Info) Description 04/21/2024 Refill [facility] [address] [place] [address] [phone] Name, MD Wenceslao [address] [place] [phone] Essential hypertension Social History Tobacco Use Types [...] Description 07/27/2025 9:00 AM EST Office Visit [facility] [address] [place] [phone] Kathy Hair MD [address] [place] [address] [phone] documented as of this encounter Visit Diagnoses Diagnosis Essential hypertension Unspecified essential hypertension documented in this encounter Care Teams Police Sergeant Precinct Relationship Specialty Start Date End Date Kathy Hair MD [address] [place] [phone] PCP - General Internal Medicine 09/15/24 Maikel RODRIGUEZ 04/11/25 documented as of this encounter
--- OUTSIDE RECORDS SUMMARY | 2025-06-21 14:46 | XMS_ITS | Encounter Summary ---
Author Organization [employer] Address [address] [place] [address] Care Team Providers Care Acute Dialysis Registered Nurse Name Role Phone Kathy Hair MD Primary Care Provide r Reason for Visit * Reason Comments Med Refill Encounter Details Date Type Department Care Team ([facility] Contact Info) Description 01/10/[address] [facility] [address] [place] [address] Annelise Joseph FNP [address] [place] [address] Social History Tobacco Use Types Packs/Day Years [...] 9:00 AM EST Office Visit [facility] [address] [place] [address] Kathy Hair MD [address] [place] [phone] documented as of this encounter Visit Diagnoses Not on filedocumented in this encounter Care Teams Acute Dialysis Registered Nurse Relationship Specialty Start Date End Date Kathy Hair MD [address] [place] [address] [phone] PCP - General Internal Medicine 09/15/24 Maikel RODRIGUEZ 04/11/25 documented as of this encounter
--- OUTSIDE RECORDS SUMMARY | 2025-06-21 14:47 | XMS_ITS | Encounter Summary ---
Author Organization [email or web address] Address [address] [place] [address] Care Team Providers Care Sprinkler Installer Name Role Phone Kathy Hair MD Primary Care Provide r Reason for Visit * Reason Comments Med Refill Encounter Details Date Type Department Care Team (Late Contact Info) Description 07/15/2024 Refill [facility] [address] [place] [phone] Kenan Mays MD [address] [place] [address] Essential hypertension Social History Tobacco Use Types [...] Description 07/27/2025 9:00 AM EST Office Visit [facility] [address] [place] [phone] Kathy Hair MD [address] [place] [phone] documented as of this encounter Visit Diagnoses Diagnosis Essential hypertension Unspecified essential hypertension documented in this encounter Care Teams Sprinkler Installer Relationship Specialty Start Date End Date Kathy Hair MD [address] [place] [phone] PCP - General Internal Medicine 09/15/24 Maikel RODIRGUEZ 04/11/25 documented as of this encounter
--- OUTSIDE RECORDS SUMMARY | 2025-06-21 14:47 | XMS_ITS | Encounter Summary ---
Author Organization [employer] Address [address] [place] [address] Care Team Providers Care Insurance Defense Attorney Name Role Phone Kathy Hair MD Primary Care Provide r Reason for Visit * Reason Comments Med Change Request Encounter Details Date Type Department Care Team ([facility] st Contact Info) Description 02/10/2025 Refill [facility] [address] [place] [address] Kenan Mays MD [address] [place] [address] Social History Tobacco Use Types Packs/Day Years [...] Description 07/27/2025 9:00 AM EST Office Visit [facility] [address] [place] [phone] Kathy Hair MD [address] [place] [phone] documented as of this encounter Visit Diagnoses Not on filedocumented in this encounter Additional Health Concerns Assessment Noted Time PHQ-9 Depression Total Score: 0 09/15/20 10:07 AM EST documented as of this encounter Care Teams Insurance Defense Attorney Relationship Specialty Start Date End Date Kathy Hair MD [address] [place] [phone] PCP - General Internal Medicine 09/15/24 [facility] documented as of this encounter
--- OUTSIDE RECORDS SUMMARY | 2025-06-21 14:47 | XMS_ITS | Encounter Summary ---
Author Organization [employer] Address [address] [facility] 7 [place] [address] Care Team Providers Care Typing Element Machine Operator Name Role Phone Kathy Hair MD Primary Care Provide r Reason for Visit * Reason Onset Date Comments New Patient 06/28/2023 Encounter Details Date Type Department Care Team (Late st Contact Info) Description 06/28/2023 Telephone [facility] [address] [place] [address] [phone] Beny Renteria MD [address] [place], [place] [phone] New Patient Social History Tobacco Use Types [...] been transfer over to wait list for EMERGENCY DOCTOR. EFFECTIVE SINCE 06/28/2023 documented in this encounter Plan of Treatment Upcoming Encounters Date Type Department Care Team (Late st Contact Info) Description 07/27/2025 9:00 AM EST Office Visit [facility] [address] [place] [phone] Kathy Hair MD [address] [place] [address] documented as of this encounter Visit Diagnoses Not on filedocumented in this encounter Care Teams Typing Element Machine Operator Relationship Specialty Start Date End Date Kathy Hair MD [address] [place] [address] PCP - General Internal Medicine 09/15/24 Maikel TINOCOA 04/11/25 documented as of this encounter
--- OUTSIDE RECORDS SUMMARY | 2025-06-21 14:47 | XMS_ITS | Clinical Summary ---
Author Organization [facility] Address [address] [place] [address] Care Team Providers Care Corporate Travel Consultant Name Role Phone Disha Callejas MD Primary [...] [phone] Procedures * Due to [place] state law, this organization might not be sharing negative HIV tests. Procedure Name Priority Date/Time Associated Diagnosis Comments COMPREHENSIVE METABOLIC PANEL Routine 07/19/2021 2:56 AM EDT from Last 3 Months or Most Recently Relevant to Health Maintenance Results * Due to [place] state law, this organization might not be sharing negative HIV tests. * (ABNORMAL) Comprehensive Metabolic Panel (07/19/2021 2:56 AM EDT) NA 136 135 - 145 mmol/L 07/19/2021 3:39 AM EDT [facility] K 3.9 3.5 - 5.3 mmol/L 07/19/2021 3:39 AM EDT [facility] Cl 103 97 - 110 mmol/L 07/19/2021 3:39 AM EDT [facility] CO2 25 24 - 32 mmol/L 07/19/2021 3:39 AM EDT [facility] Anion Gap 8 5 - 15 07/19/2021 3:39 AM EDT [facility] Glucose 138(H) 70 - 99 mg/dL 07/19/2021 3:39 AM EDT [facility] Creatinine 0.99 0.60 - 1.30 mg/dL 07/19/2021 3:39 AM EDT [facility] eGFR Non- 88(L) >=90 mL/min/BS A 07/19/2021 3:39 AM EDT [facility] eGFR >90 >=90 mL/min/BS A 07/19/2021 3:39 AM EDT [facility] Comment: Units = mL/min/1.73 m2 Glomerular Filtration Rate (GFR) is estimated based on the CKD-EPI Creatinine Equation (2009). Stage Description GFR 1 Normal >=90 mL/min/BSA 2 Mildly decreased GFR 60-89 mL/min/BSA 3 Moderately decreased GFR 30-59 mL/min/BSA 4 Severely decreased GFR 15-29 mL/min/BSA 5 Kidney Failure <15 mL/min/BSA Calcium 8.7 8.7 - 10.7 mg/dL 07/19/2021 3:39 AM EDT [facility] Total Protein 7.3 6.0 - 8.0 g/dL 07/19/2021 3:39 AM EDT [facility] Albumin 3.5 3.5 - 4.8 g/dL 07/19/2021 3:39 AM EDT [facility] Bilirubin, Total 0.2(L) 0.3 - 1.2 mg/dL 07/19/2021 3:39 AM EDT [facility] Alkaline Phosphatase 46 30 - 115 U/L 07/19/2021 3:39 AM EDT [facility] AST 13 10 - 40 U/L 07/19/2021 3:39 AM EDT [facility] ALT 16 10 - 40 U/L 07/19/2021 3:39 AM EDT [facility] BUN 29(H) 7 - 23 mg/dL 07/19/2021 3:39 AM EDT [facility] Blood Structure of peripheral vein / Unknown Venipuncture / Unknown 07/19/2021 2:56 AM EDT 07/19/2021 3:09 AM EDT Marietta Wilhelm BRAND MANAGER LAB BLOOD ORDERABLES Final Result [facility] [address] from Last 3 Months or Most Recently Relevant to Health Maintenance Insurance [facility] MEDICAID Advance Directives * Full Code (Latest Code Status on File) Date Activated Date Inactivated Comments 07/15/2021 3:20 AM 07/19/2021 5:11 PM Care Teams Corporate Travel Consultant Relationship Specialty Start Date End Date Disha Callejas MD PCP - General Family Medicine 04/27/20
--- OUTSIDE RECORDS SUMMARY | 2025-06-21 14:47 | XMS_ITS | Encounter Summary ---
Author Organization [employer] Address [address] [place] [address] Care Team Providers Care Medical Billing Manager Name Role Phone Kathy Hair MD Primary Care Provide r Reason for Visit * Reason Comments Med Refill Encounter Details Date Type Department Care Team (Late Contact Info) Description 07/15/2024 Refill [facility] [address] [place] [phone] Kenan Mays MD [address] [place] [address] Essential hypertension Social History Tobacco Use Types [...] Description 07/27/2025 9:00 AM EST Office Visit [facility] [address] [place] [phone] Kathy Hair MD [address] [place] [phone] documented as of this encounter Visit Diagnoses Diagnosis Essential hypertension Unspecified essential hypertension documented in this encounter Care Teams Medical Billing Manager Relationship Specialty Start Date End Date Kathy Hair MD [address] [place] [phone] PCP - General Internal Medicine 09/15/24 Maikel RODRIGUEZ 04/11/25 documented as of this encounter
--- OUTSIDE RECORDS SUMMARY | 2025-06-21 14:47 | XMS_ITS | Encounter Summary ---
Author Organization [employer] Address [address] [place] [address] Care Team Providers Care Window Framer Name Role Phone Kathy Hair MD Primary Care Provide r Reason for Visit * Reason Comments Med Refill Encounter Details Date Type Department Care Team (Late Contact Info) Description 07/15/2024 Refill [facility] [address] [place] [phone] Kenan Mays MD [address] [place] [address] Essential hypertension Social History Tobacco Use Types [...] Description 07/27/2025 9:00 AM EST Office Visit [facility] [address] [place] [phone] Kathy Hair MD [address] [place] [address] [phone] documented as of this encounter Visit Diagnoses Diagnosis Essential hypertension Unspecified essential hypertension documented in this encounter Care Teams Window Framer Relationship Specialty Start Date End Date Kathy Hair MD [address] [place] [address] [phone] PCP - General Internal Medicine 09/15/24 Maikel RODRIGUEZ 04/11/25 documented as of this encounter
--- OUTSIDE RECORDS SUMMARY | 2025-06-21 14:47 | XMS_ITS | Clinical Summary ---
Author Organization [employer] Address [address] [place] [address] Care Team Providers Care Information Technology Auditor Name Role Phone Kathy Hair MD Primary Care Provide r Allergies No known active allergies Medications naproxen (Naprosyn) 500 MG tablet TAKE 1 TABLET BY MOUTH TWICE A DAY 60 tablet 10/21/19 24 Active FREESTYLE LITE test stripIndications :Newly diagnosed diabetes (HCC) Use to test blood sugar 1 times daily 100 each 12 09/17/20 24 025 Active Lancets miscIndications: Newly diagnosed diabetes (HCC) Use to test blood sugar 1 times daily 100 each 09/17/20 24 Active Alcohol Swabs 70 % padsIndications: Newly diagnosed diabetes (HCC) Use to test blood sugar 1 times daily 100 each 09/17/20 24 Active Blood Glucose Monitoring Suppl (FreeStyle G[place]t Lite) w/Device kitIndications:N ewly diagnosed diabetes (HCC) Use to test blood sugar 1 times daily 1 kit 09/17/20 24 Active ciclopirox (Penlac) 8 % solutionIndicati ons:Onychomycosi s Apply topically at bedtime. 6 mL 2 12/16/19 25 Active cyclobenzaprine (Flexeril) 10 MG tablet Take 1 tablet (10 mg) by mouth if needed at bedtime (pain). 30 tablet 1 02/13/20 25 Active oxyCODONE (Roxicodone) 5 MG immediate release tablet Take 1 tablet by mouth every 6 (six) hours if needed for severe pain. Active docusate sodium (Colace) 100 MG capsule Take 1 capsule by mouth 2 times daily. 03/17/20 25 Active hydroCHLOROthiaz brenda 12.5 MG tabletIndication s:Essential hypertension Take 1 tablet (12.5 mg) by mouth Once per day. 30 tablet 11 04/14/20 25 026 Active lisinopril (Prinivil) 20 MG tabletIndication s:Essential hypertension Take 1 tablet (20 mg) by mouth Once per day. 30 tablet 11 04/14/20 25 Active metoprolol succinate XL (Toprol-XL) 25 MG 24 hr tabletIndication s:Essential hypertension TAKE 1 TABLET BY MOUTH EVERY DAY. DO NOT CRUSH OR CHEW. 90 tablet 1 04/14/20 25 Active pravastatin (Pravachol) 40 MG tabletIndication s:Coronary artery disease involving [place] coronary artery of [place] heart without angina pectoris Take 1 tablet (40 mg) by mouth Once per day. 30 tablet 11 04/14/20 25 026 Active Cialis 10 MG tablet TAKE 1 TABLET 1 HOUR BEFORE SEXUAL RELATIONS ONCE DAILY NEEDED. 20 tablet 06/11/20 25 Active tadalafil (Cialis) 10 MG tablet Take 1 tablet (10 mg) by mouth if needed each day for erectile dysfunction. 20 tablet 1 11/28/19 Discontinued Active Problems Problem Noted Date Diagnosed [...] with specialist Coronary artery disease invo lving red [place] coronary artery of [place] heart without angina pectoris 04/14/2025 Assessment & Plan (04/14/2025 11:20 AM EDT): Continue to follow-up with cardiology Today I added pravastatin 40 mg daily, patient did not tolerate atorvastatin he explained he just did not feel well taking the medication I decided to reduce the doses of lisinopril and hydrochlorothiazide for blood pressure but to continue metoprolol 25 mg daily S/P colostomy ([facility]) 04/14/2025 Assessment & Plan (04/23/2025 1:16 PM [...] 10/02/2023 History of [place] (myocardial infarction) 10/02/2023 Resolved Problems Problem Noted [...] Encounters Date Type Department Care Team Description 06/14/2025 Orders Only GENERIC EXTERNAL DATA DEPARTMENT Provider, Generic External Data 06/10/2025 Refill [facility] MEDICINE [address] [place] [phone] Kathy Hair MD 04/23/2025 11:00 AM EDT Office Visit [address] [phone] Kathy Hair MD Primary hypertension (Primary Dx); Type 2 diabetes mellitus without complication, without long-term current use of insulin ([facility]); S/P colostomy ([facility]) 04/23/2025 Travel 04/22/2025 Telephone [facility] MEDICINE [address] [place] [phone] Kathy Hair MD Chart Prep 04/16/2025 2:00 PM EDT Office Visit [facility] WALK-IN CENTER [address] [place] [phone] Kathy Hair MD Diverticulosis (Primary Dx); Pharyngoesophageal dysphagia; S/P colostomy ([facility]/HCC) 04/16/2025 Travel 04/14/2025 9:30 AM EDT Office Visit [address] [phone] Kathy Hair MD S/P colostomy ([facility]) (Primary Dx); Type 2 diabetes mellitus without complication, without long-term current use of insulin ([facility]); Essential hypertension; Diverticulosis; Primary hypertension; Coronary artery disease involving red [place] coronary artery of [place] heart without angina pectoris; Encounter for immunization 04/14/2025 Results Follow-Up [address] [address] Kathy Hair MD POCT Glucose, POCT HGB A1C, Lipid Panel, Standard, Additional followed-up results: 2 04/14/2025 Travel 04/13/2025 Patient Outreach [address] [address] Kathy Hair MD Pre-visit Planning (SDOH screening completed on 12/07/2024) 04/12/[address] [address] Kathy Hair MD Chart Prep 03/29/2025 Patient Outreach [address] [phone] Kathy Hair MD Transition Of Care (Tcm) (HDF scheduled and SDOH screening completed on 02/06/25 ) 03/29/[address] [phone] Kathy Hair MD Hospital Follow-up from Last 3 Months Immunizations Immunization Administration [...] 9:00 AM EST Office Visit [facility] MEDICINE [address] [place] [address] Kathy Hair MD [address] [place], [place] [phone] Health Maintenance Due Date Last Done Comments CT Colonography 1970 Colonoscopy 1970 Colorectal Cancer Screening 1970 FIT DNA/Cologuard 1970 FIT 1970 FOBT 1970 Sigmoidoscopy 1970 Diabetes: Foot Exam 1980 Eye Exam 1980 Hepatitis B Vaccines (1 of 3 - 19+ 3-dose series) 1989 Zoster Vaccines (2 of 2) 08/16/2020 06/21/2020 COVID-19 Vaccine (3 - season) 2025 02/01/2021, 01/11/2021 Influenza Vaccine (#1) [...] Procedure Name Priority Date/Time Associated Diagnosis Comments SED RATE BY MODIFIED WESTERGREN Routine 06/14/2025 1:22 PM EDT MAGNESIUM Routine 06/14/2025 1:22 PM EDT COMPREHENSIVE METABOLIC PANEL Routine 06/14/2025 1:22 PM EDT COVID-19 ID NOW (LÓPEZ) Routine 06/14/2025 1:22 PM EDT CBC WITH AUTO DIFFERENTIAL Routine 06/14/2025 1:22 PM EDT INFLUENZA A B2 ID NOW (LÓPEZ) Routine 06/14/2025 1:22 PM EDT POCT GLYCATED HEMOGLOBIN, TOTAL Routine 04/23/2025 10:54 AM EDT Type 2 diabetes mellitus without complication, without long-term current use of insulin ([facility]/HCC) POCT GLUCOSE Routine 04/23/2025 10:51 AM EDT Type 2 diabetes mellitus without complication, without long-term current use of insulin (CMS/[facility]) POCT RAPID STREP A Routine 04/16/2025 2: [...] without long-term current use of insulin (CMS/HCC) HEPATITIS C AB W/REFL TO HCV RNA, QN, PCR Routine 01/22/2025 11:06 AM EDT Exposure to virus HIV 1/2 ANTIGEN/ANTIBODY, FOURTH GENERATION W/RFL Routine 01/22/2025 11:06 AM EDT Exposure to virus from Last 3 Months or Most Recently Relevant to Health Maintenance Results * Influenza A B2 ID NOW ([facility]) (06/14/2025 1:22 PM EDT) IDNOW SERIAL# [id number] [facility] Influenza A Negative Negative [facility] Influenza B2 Negative Negative [facility] Influenza A B2 Note See Note [facility] Comment:The López ID NOW In fluenza A B2 test is used for thequalitative detection of influenza A and B from patientswith signs and symptoms of respiratory infection.Negative results do not preclude influenza virus infectionand should not be used as the sole basis for diagnosis,treatment or other patient management decisions.There is a risk of false negative results due to thepresence of variants in the viral targets of the assay, lowlevels of virus in the specimen and co- infection withRespiratory Syncytial Virus. 06/14/2025 1:22 PM EDT 06/14/2025 1:26 PM EDT us Generic External Data Provider LAB MICROBIOLOGY - GENERAL ORDERABLES Final Result [facility] [address] [place] [phone] * COVID-19 ID NOW (LÓPEZ) (06/14/2025 1:22 PM EDT) IDNOW SERIAL# [id number] [facility] COVID-19 TEST Negative Negative [facility] COVID-19 NOTE See Note [facility] Comment: Results are for the identification of SARS-CoV2 RNA. TheSARS-CoV2 RNA is generally detectable in respiratory samplesduring the acute phase of infection. Positive results areindicative of the presence of SARS-CoV-2 RNA; clinicalcorrelation with patient history and other diagnosticinformation is necessary to determine patient infectionstatus. Positive results do not rule out bacterial infectionor co- infection with other viruses.Testing facilities within the [facility] and [facility] hospitalies are required to report all positive results tothe appropriate public health authorities.Negative results should be treated as presumptive and, ifinconsistent with clinical signs and symptoms or necessaryfor patient management, should be tested with differentauthorized or cleared molecular tests. Negative results donot preclude SARS-CoV2 RNA infection and should not be usedas the sole basis for patient management decisions. Negativeresults should be considered in the context of a patient'srecent exposures, history and the presence of clinical signsand symptoms consistent with COVID-19.This test has been authorized by the FDA under an EmergencyUse Authorization (EUA) for use by authorized laboratories.Testing performed on the [facility] ID NOW utilizing NAAT. 06/14/2025 1:22 PM EDT 06/14/2025 1:26 PM EDT us Generic External Data Provider LAB MOLECULAR MARCOS GNOSTICS ORDERABLES Final Result [facility] [address] [place] [phone] * (ABNORMAL) CBC auto differential (06/14/2025 1:22 PM EDT) White Blood Count 5.7 4.8 - 10.8 X10*3/uL [facility] Red Blood Count 4.77 4.60 - 5.80 X10*6/uL [facility] Hemoglobin 14.0 14.0 - 18.0 g/dl [facility] Hematocrit 41.4(L) 42.0 - 52.0 % [facility] Mean Corpuscular Volume 86.8 80.0 - 98.0 fL [facility] Mean Corpuscular Hemoglobin 29.4 27.0 - 33.0 pg [facility] Mean Corpuscular HGB Conc 33.8 31.0 - 36.0 g/dl [facility] Red Cell Distribution Width 13.5 11.0 - 16.0 % [facility] Platelet Count 267 160 - 400 X10*3/uL [facility] Mean Platelet Volume 10.8 9.4 - 12.4 fL [facility] Neutrophils Percent Auto 55.8 45 - 73 % [facility] Imm Gran Pct Auto 0.2 0.0 - 0.4 % [facility] Lymphocytes Percent Auto 30.4 20 - 40 % [facility] Monocytes Percent Auto 11.1(H) 2 - 11 % [facility] Eosinophils Percent Auto 1.6 0 - 4 % [facility] Basophils Percent Auto 0.9 0 - 2 % [facility] NRBC Pct Auto 0.0 0.0 - 0.2 /100WBC [facility] Neutrophils Absolute Auto 3.2 2.0 - 8.3 x10*3/uL [facility] Imm Gran Abs Auto 0.01 0.00 - 0.03 X10*3/uL [facility] Lymphocytes Absolute Auto 1.7 1.2 - 4.9 X10*3/uL [facility] Monocytes Absolute Auto 0.6 0.1 - 1.2 X10*3/uL [facility] Eosinophils Absolute Auto 0.1 0.0 - 0.4 X10*3/uL [facility] Basophils Absolute Auto 0.1 0.0 - 0.2 X10*3/uL [facility] NRBC Abs Auto 0.000 0.0 - 0.012 X10*3/uL [facility] 06/14/2025 1:22 PM EDT 06/14/2025 1:26 PM EDT Generic External Data Provider LAB BLOOD ORDERAB LES Final Result Performing Organization Address City/[facility]/ZIP Co de Phone Number [facility] [address] [place] [phone] * Sed Rate by Modified Kojoergren (06/14/2025 1:22 PM EDT) Pathologist [facility] Erythrocyte Sedimentation Rate 7 0 - 15 MM/HR [facility] Comment:Patients with polycy themia and many hemoglobin abnormalitiesmay have depressed sed rates whereas patients with anemiamay have elevated sed rates. 06/14/2025 1:22 PM EDT 06/14/2025 4:15 PM EDT Generic External Data Provider LAB BLOOD ORDERAB LES Final Result Performing Organization Address [facility] Co de Phone Number [facility] [address] [place] [address] [phone] * Magnesium (06/14/2025 1:22 PM EDT) Magnesium 2.0 1.6 - 2.6 mg/dL [facility] 06/14/2025 1:22 PM EDT 06/14/2025 1:26 PM EDT us Generic External Data Provider LAB BLOOD ORDERAB LES Final Result [facility] [address] [place] [address] [phone] * (ABNORMAL) Comprehensive Metabolic Panel (06/14/2025 1:22 PM EDT) Only the most recent of2 resultswithin the time period is included. Sodium 140 135 - 145 mmol/L [facility] Potassium 3.8 3.3 - 5.1 mmol/L [facility] Chloride 102 96 - 108 mmol/L [facility] Carbon Dioxide 32(H) 22 - 29 mmol/L [facility] Anion Gap 10(L) 12 - 20 [facility] Urea Nitrogen (BUN) 13 9 - 16 mg/dL [facility] Creatinine, Serum 0.75 0.5 - 1.4 mg/dL [facility] Creatinine Clr Calc Pharmacy 117.8 [facility] Comment:eGFR (calculated fro m the MDRD study equation) and eCrCl(calculated from the Cockcroft-Gault equation) are based ondifferent parameters and may not yield comparable results.If eCrCl result is absurd, please check patient'sheight/weight. Estimated Glomerular Filt Rate >60 [facility] Comment:Chronic Kidney Disea se: Estimated GFR < 60 mL/min/1.29b1Zommbp Kidney Disease: Estimated GFR < 15 mL/min/1.73m2 Glucose 104 60 - 115 mg/dL [facility] Calcium 9.3 8.4 - 10.2 mg/dL [facility] Bilirubin, Total 0.4 0.0 - 1.0 mg/dL [facility] Aspartate Amino Transferase 26 5 - 37 U/L [facility] Alanine Aminotransferase 37 0 - 40 U/L [facility] Total Protein 7.4 6.5 - 8.0 g/dL [facility] Albumin Level 4.0 3.5 - 5.0 g/dL [facility] Alkaline Phosphatase 56 39 - 117 U/L [facility] 06/14/2025 1:22 PM EDT 06/14/2025 1:26 PM EDT Generic External Data Provider LAB BLOOD ORDERAB LES Final Result [facility] [address] [place] [phone] * (ABNORMAL) POCT HGB A1C (04/23/2025 10:54 AM EDT) Only the most recent of2 resultswithin the time period is included. Pathologist [facility] Hemoglobin A1C 6.1(A) 4.0 - 5.7 % Blood 04/23/2025 10:5 4 AM EDT Kathy Jennings MD POINT OF CARE TEST EN TER/EDIT ORDERABLES Final Result * POCT Glucose (04/23/2025 10:51 AM EDT) Only the most recent of2 resultswithin the time period is included. Pathologist [facility] Glucose Blood, POC 103 60 - 200 mg/dL Blood Capillary blood specimen / Unknown 04/23/2025 10:51 AM EDT Kathy Jennings MD POINT OF CARE TEST EN TER/EDIT ORDERABLES Final Result * POCT rapid strep A manually resulted (04/16/2025 2:00 PM EDT) Pathologist [facility] Rapid Strep A Screen Negative Negative, None Detected Swab 04/16/2025 2:00 PM EDT Kathy Jennings MD POINT OF CARE TEST EN TER/EDIT ORDERABLES Final Result * Albumin, Random Urine W/Creatinine (04/14/2025 10:21 AM EDT) Creatinine, Urine 136.09 mg/dL [facility] Microalbumin Urine 8.0 mg/L [facility] Microalbum Creatinine Ratio Ur 5.8 <30 ug/mg cr [facility] Comment:Albumin/Creatinine R atio Reference Ranges: Normal: < 30 ug/mg creatinine Microalbuminuria: 30 - 300 ug/mg creatinineClinical Albuminuria: > 300 ug/mg creatinine Urine (Urine, Random) 04/14/2025 10:21 AM EDT 04/14/2025 11:11 AM EDT Kathy Jennings MD LAB URINE ORDERABLES Final Result [facility] [address] [place] [phone] * (ABNORMAL) Lipid Panel, Standard (04/14/2025 10:21 AM EDT) Triglycerides 169(H) <150 mg/dL [facility] Comment:Desirable Triglyceri de: less than 150 mg/dLBorderline High Triglyceride 150-199 mg/dLHigh Triglyceride: 200-499 mg/dLVery High Triglyceride: greater than or equal to 5OO mg/dL Cholesterol 215(H) <200 mg/dL [facility] Comment:Desirable Cholestero l: less than 200 mg/dLBorderline High Cholesterol: 200-239 mg/dLHigh Cholesterol: greater than 239 mg/dL LDL Cholesterol Calculated 142(H) <100 mg/dL [facility] Comment:Desirable LDL: less than 100 mg/dLNear Optimal/Above Optimal LDL: 110- 129 mg/dLBorderline High LDL: 130-159 mg/dLHigh LDL: 160-189 mg/dLVery High LDL: greater than or equal to 190 mg/dL HDL Cholesterol 40(L) >40 mg/dL [facility] Comment:Desirable HDL: great er than 40 mg/dL Note: This HDL assay may give artificially low results in patients with liver disease. Blood Venous blood specimen / Unknown 04/14/2025 10:21 AM EDT 04/14/2025 11:24 AM EDT us Kathy Jennings MD LAB BLOOD ORDERABLES Final Result Performing Organization Address [facility]/ZIP Co de Phone Number [facility] [address] [place] [phone] * Hepatitis C Antibody with Reflex to HCV, RNA, Quantitative, Real-Time PCR (01/22/2025 11:06 AM EDT) Hepatitis C Antibody Nonreactive Nonreactive [facility] Comment:Antibodies to HCV no t detected; does not exclude early acuteHCV infection. Blood Venous blood specimen / Unknown 01/22/2025 11:06 AM EDT 01/22/2025 4:04 PM EDT us Ward Dorsey MD LAB BLOOD ORDERABLES Final Resul t Performing Organization Address City/[facility]/ZIP Co de Phone Number [facility] [address] [place] [phone] * HIV-1/2 Antigen and Antibodies, Fourth Generation, with Reflexes (01/22/2025 11:06 AM EDT) HIV AB/AG Nonreactive Nonreactive [facility] Comment:HIV-1 p24 Ag and/or HIV-1/HIV-2 Ab not detected.A test result that is nonreactive does not exclude thepossibility of exposure to or infection with HIV-1 and/orHIV-2. Nonreactive results in this assay for individualswith prior exposure to HIV-1 and/or HIV-2 may be due toantigen and antibody levels that are below the limit ofdetection of this assay.The [employer] HIV Ag/Ab Combo assay result andsupplemental assay results should be interpreted inconjunction with the patient's clinical presentation,history and other laboratory results. If the results areinconsistent with clinical evidence, additional testing issuggested to confirm the result. Blood Venous blood specimen / Unknown 01/22/2025 11:06 AM EDT 01/22/2025 4:04 PM EDT us Ward Dorsey MD LAB BLOOD ORDERABLES Final Resul t [facility] [address] [place] [phone] from Last 3 Months or Most Recently Relevant to Health Maintenance Insurance [employer] [facility] C3 Care Teams Information Technology Auditor Relationship Specialty Start Date End Date Kathy Hair MD [address] [place] [phone] PCP - General [facility]
--- OUTSIDE RECORDS SUMMARY | 2025-06-21 14:47 | XMS_ITS | Data Portability ---
Author Organization [facility] Address [address] [place] [address] Care Team Providers Care Sales Financial Analyst Name Role Phone DISHA CALLEJAS Primary Care Provider [phone] DISHA CALLEJAS Referring Provider Assessment No assessment recorded. Plan of Treatment Reminders Order Date Submit Date Provider Last Modified By Organization Details Last Modified Time Details Appointments None recorded. Lab urinalysis, dipstick [address] ([facility]), 16 [facility] Dylan, [place], [address], 08:13:50 culture, urine 2021 [facility], [address] [place] [address], [address], 10:17:56 HbA1c (hemoglobin A1c), blood 2021 022 [email or web address] [facility], [address] [place] [address], [address], 10:40:35 CMP, serum or plasma 2021 022 [facility], [address] [place] [address], [address], 17:17:13 lipid panel, serum 2021 [facility], [address] [place] [address], [address], 17:17:14 Referral gastroenter ologist referral [email or web address] [place] [address] - Gi, 250 [facility], [address], [place], [address], 2 08:26:45 nutritionis t/dietitian referral 2020 [email or web address] [place] [address] (Nutrition Services), [address] [place], [address], 2 15:42:35 Procedures None recorded. Surgeries None recorded. Imaging US, kidney - right kidney 2021 022 [facility] (Central Scheduling), [address] [place], [address], 08:54:00 Medication Orders diclofenac 1 % topical gel 2021 022 [facility][id number], [address] [place], [place], [id number], 2 12:33:58 metronidazo le 500 mg tablet [address]/Pharmacy #[id number], [address] [place], [place], [id number], 2 13:50:46 Cipro 500 mg tablet [address]/Pharmacy #[id number], [address] [place], [place], [id number], 13:50:40 Patient Targets Encounter Date Encounter Id Patient Goals Patient Target Last Modified By Organization Details Last Modified Time 12/06/2021 [id number] Goals: 1. Promote weight loss of 1# per week. 2. Promote BGlu management with HbA1C <5.7% 3. Promote lipid panel WNL. 4. Promote regular physical activity. Not available 12/29/2021 11:18:47 Patient Instructions Encounter Date Encounter Id Patient Instructions Last Modified By Organization Details Last Modified Time 12/06/2021 [id number] 2 month f/u or sooner if needed [...] Not available 12/06/2021 10:28:42 Reason for Referral Crocheter Hand/dietitian Refer ral for Prediabetes Referring Physician: Disha Callejas [facility], Encounter Date: 08/02/2021 Professional Services Consultant Referral for Hematemesis Referring Physician: Disha Callejas [facility], Encounter Date: 10/26/2021 Results [...] Consi stent with Diabe ras Not Available [facility] [address] [place], [address] 10/26/2021 16:50:52 10/26/1910/26/2021 COMPR EHENS MACIE MET. PANEL sodium 136 mmol/ L 136-14 5 normal Not Available [facility] [address] [place], [address] 10/26/2021 17:17:12 10/26/1910/26/2021 COMPR EHENS MACIE MET. PANEL potassium 4.0 mmol/ L 3.5-5. 1 normal Not Available [facility] [address] [place], [address] 10/26/2021 17:17:12 10/26/19 22 10/26/2021 COMPR EHENS MACIE MET. PANEL chloride 100 mmol/ L 98-107 normal Not Available [facility] [address] [place], [address] 10/26/2021 17:17:12 10/26/19 22 10/26/2021 COMPR EHENS MACIE MET. PANEL carbon dioxide 25.3 mmol/ L 22-29 normal Not Available [facility] [address] [place] [address], [address] 10/26/2021 17:17:12 10/26/19 22 10/26/2021 COMPR EHENS MACIE MET. PANEL anion gap 15 mmol/ L 10-20 normal Not Available [facility] [address] [place] [address], [address] 10/26/2021 17:17:12 10/26/19 22 10/26/2021 COMPR EHENS MACIE MET. PANEL blood urea nitrogen 16 mg/dL 6-20 normal Not Available [facility] Department [address] [place], [address] 10/26/2021 17:17:12 10/26/19 22 10/26/2021 COMPR EHENS MACIE MET. PANEL creatinine 0.79 mg/dL 0.70-1 .2 normal Not Available [facility] [address] [place] [address], [address] 10/26/2021 17:17:12 10/26/19 22 10/26/2021 COMPR EHENS [...] under the age of 18 Not Available [facility] [address] [place], [address] 10/26/2021 17:17:12 10/26/19 22 10/26/2021 COMPR EHENS MACIE MET. PANEL glucose 116 mg/dL 70-106 high Not Available [facility] [address] [place], [address] 10/26/2021 17:17:12 10/26/19 22 10/26/2021 COMPR EHENS MACIE MET. PANEL calcium 9.4 mg/dL 8.6-10 .3 normal Not Available [facility] [address] [place], [address] 10/26/2021 17:17:12 10/26/19 22 10/26/2021 COMPR EHENS MACIE MET. PANEL bilirubin total 0.4 mg/dL 0.2-1. 2 normal Not Available [facility] [address] [place], [address] 10/26/2021 17:17:12 10/26/19 22 10/26/2021 COMPR EHENS MACIE MET. PANEL aspartate amino transferase 23 U/L 5-40 normal Not Available [facility] Laboratory Department [address] [place], [address] 10/26/2021 17:17:12 10/26/19 22 10/26/2021 COMPR EHENS MACIE MET. PANEL alanine aminotransfe rase 27 U/L 5-41 normal Not Available [facility] Department [address] [place], [address] 10/26/2021 17:17:12 10/26/19 22 10/26/2021 COMPR EHENS MACIE MET. PANEL total protein 7.1 g/dL 6.4-8. 3 normal Not Available [facility] [address] [place], [address] 10/26/2021 17:17:12 10/26/19 22 10/26/2021 COMPR EHENS MACIE MET. PANEL albumin level 4.4 g/dL 3.5-5. 2 normal Not Available [facility] [address] [place], [address] 10/26/2021 17:17:12 10/26/19 22 10/26/2021 COMPR EHENS MACIE MET. PANEL globulin 2.7 gm/dL 2.0-3. 5 normal Not Available [facility] [address] [place], [address] 10/26/2021 17:17:12 10/26/19 22 10/26/2021 COMPR EHENS MACIE MET. PANEL albumin globulin ratio 1.6 % 1.1-2. 5 normal Not Available [facility] [address] [place], [address] 10/26/2021 17:17:12 10/26/19 22 10/26/2021 COMPR EHENS MACIE MET. PANEL alkaline phosphatase 60 U/L 40-129 normal Not Available [facility] Department [address] [place], [address] 10/26/2021 17:17:12 10/26/19 22 10/26/2021 LIPID PANEL WITH REFLE X triglyceride s w/ reflex LDL 208 mg/dL 30-150 high Refer ence Range s: <150 mg/dl Faby l 150-1 99 mg/dl Borde rline High 200-4 99 mg/dl High >500 mg/dl Very High Not Available [facility] [address] [place], [address] 10/26/2021 17:17:13 10/26/19 22 10/26/2021 LIPID PANEL WITH REFLE X cholesterol 148 mg/dL 100-20 0 normal Not Available [facility] [address] [place], [address] 10/26/2021 17:17:13 10/26/19 22 10/26/2021 LIPID PANEL [...] mg/dL Very high >190 mg/dL Not Available [facility] [address] [place], [address] 10/26/2021 17:17:13 10/26/19 22 10/26/2021 LIPID PANEL WITH REFLE X HDL cholesterol 37.9 mg/dL 40-60 low Major risk facto r for CHD: <40 mg/dL Negat macie risk facto r for CHD: >=60 mg/dL Not Available [facility] [address] [place], [address] 10/26/2021 17:17:13 10/26/19 22 10/26/2021 LIPID PANEL WITH REFLE X chol HDL ratio 3.91 Risk CHOL/ HDL CHOL/ HDL Ratio Male Femal e 1/2 AVERA GE 3.43 3.27 AVERA GE 4.97 4.44 2 X AVERA GE 9.55 7.05 3 X AVERA GE 23.39 11.04 Not Available [facility] [address] [place], [address] 10/26/2021 17:17:13 12/06/1912/05/2021 URINE CULTU RE results [...] ----- -- PATIE NT: Nancy Wilcox ACCT: [id number] LOC: HE.DO Sahu U: [id number] AGE/S X: 51/M ROOM: RE12/[address]: Aurelia carver : 05/27 BED: DIS: STATU S: DEP CLI TLOC: ----- ----- ----- ----- ----- ----- ----- ----- ----- ----- ----- ----- ----- ----- ----- ----- ----- ----- -- SPEC #: [id number] LUCRECIA: 12/05-U NK STATU S: COMP REQ #: [id number] RECD: 12/05- [address]: Aurelia Barber [facility] E: Caleb mullen ENTR: 12/05- 751 [...] -- END OF REPOR T Not Available [facility] [address] [facility], [place], [address] 12/07/2021 10:17:56 12/06/19 22 12/05/2021 urina lysis , dipst ick SPECIFIC GRAVITY 1.010 Not Available [facility] ([facility]) [address] [place], [address], 12/05/2021 08:06:56 12/06/19 22 12/05/2021 urina lysis , dipst ick PH 7.0 Not Available [facility] ([facility]) [address] [place], [address], 12/05/2021 08:06:56 12/06/19 22 12/05/2021 urina lysis , dipst ick LEUKOCYTES Neg Not Available [facility] ([facility]) [address] [place], [address], 12/05/2021 08:06:56 12/06/19 22 12/05/2021 urina lysis , dipst ick NITRITE Neg Not Available [facility] ([facility]) [address] [place], [address], 12/05/2021 08:06:56 12/06/19 22 12/05/2021 urina lysis , dipst ick PROTEIN Neg Not Available [facility] ([facility]) [address] [place], [address], 12/05/2021 08:06:56 12/06/19 22 12/05/2021 urina lysis , dipst ick GLUCOSE Neg Not Available [facility] ([facility]) [address] [place], [address], 12/05/2021 08:06:56 12/06/19 22 12/05/2021 urina lysis , dipst ick KETONE Neg Not Available [facility] ([facility]) [address], [place], [address], 12/05/2021 08:06:56 12/06/19 22 12/05/2021 urina lysis , dipst ick UROBILINOGEN Normal Not Available [facility] ([facility]) [address] [place], [address], 12/05/2021 08:06:56 12/06/19 22 12/05/2021 urina lysis , dipst ick BILIRUBIN Neg Not Available [facility] ([facility]) [address] [place], [address], 12/05/2021 08:06:56 12/06/19 22 12/05/2021 urina lysis , dipst ick BLOOD Neg Not Available [facility] ([facility]) [address] [place], [address], 12/05/2021 08:06:56 12/07/19 22 12/06/2021 , [facility] [address] [facility] [place] [address] Ultras ound Report Signed Patien t: Sarabjit Castelan MR#: [id number] : [id number] Acct:H [id number] Age/Se x: 51 / M ADM Date: Loc: [facility] RA Attend ing Dr: Disha lilyl MD Orderi ng Physic kei: Disha lilly Date of Servic e: Proced ure(s) : US renal BI Access ion Number (s): [id number] H cc: Disha lilly EXAM: US renal [...] Transc riptio nist: [email or web address] [facility] [address] [place] [address], [address], 12/08/2021 08:15:53 Result Notes None recorded. Problems Name Problem SNOMED Code Status Onset Date Resolution Date Notes Provider Name and Address Organization Details Recorded Time Benign essential hypertensi on 6723723 Active 2019 Not Available [facility] 0 23:48:14 Hematemesi s 6023041 Active 2019 Carlton Hamilton MD [address] [place] [address], [address] , [facility] 0 17:09:26 History of SARS-CoV-2 3784707416235 45347 Active 2020 Catherine Ramirez LPN null, [facility] 2 11:01:47 COVID-19 628649105 Active 2020 Disha Callejas MD [address] [place], [address] , [facility] 15:39:26 Atrial fibrillati on 97613031 Active 2020 Disha Callejas MD [address] [place], [address] , [facility] 15:46:00 Glaucoma 55431164 Active 2020 Disha Callejas MD [address] [place], [address] , [facility] 15:46:06 Prediabete s 070620529 Active 2020 Disha Callejas MD [address] [place], [place] [address], [address] , [facility] 15:46:07 Nodule of lung 980805947 Active 2020 Disha Callejas MD [address] [place], [address] , [facility] 15:46:15 History of myocardial infarction 485789143 Active 2020 Disha Callejas MD [address] [place], [address] , [facility] 2 09:04:19 Left ventricula r hypertroph y 09582582 Active 2020 Disha Callejas MD [address] [place], [address] , [facility] 15:46:39 Erectile dysfunctio n 829316824 Active 2020 Disha Callejas MD [address] [place], [address] , [facility] 15:46:55 Myocardial infarction 17245599 Active 2021 Leora Castaneda RN, BSN [facility] 08:51:03 Problem Notes None recorded. Procedures Surgical History Date Name Laterality Status Provider Name and Address Organization Details Recorded Time 12/07/19 22 Nutrition completed Monica Ferrara, MS, RDN, LDN [address] [place], [address], [facility] 12/29/2021 11:49:46 10/26/19 22 PHQ-9 Patient Health Questionnaire completed Disha Callejas MD [address] [place], [address], [facility] 10/26/2021 11:40:38 06/16/20 20 PHQ-9 Patient Health Questionnaire completed Disha Callejas MD [address] [place] [address], [address], [facility] 06/16/2020 09:15:13 10/07/19 20 colonoscopy completed Disha Callejas MD [address] [place], [address], [facility] 06/16/2020 08:45:24 partial nephrectomy completed Disha Callejas MD [address] [place] [address], [address], [facility] 04/07/2020 09:27:15 Imaging Results None recorded. Procedure [...] Available atorvastati n 40 mg tablet TOME PIRETO TABLETA TODOS LOS D AL ACOSTARSE active [...] Last Updated DateTime 187.96 cm 34 kg/m2 547393. 98 g 95 % 95 % 71 /min 128/100 mm[Hg] 130/102 mm[Hg] Catherine Ramirez LPN [facility] 11:05:16 Date Recorded Body height Body mass index (BMI) Body weight Heart rate Systolic And Diastolic Provider Name and Address Organization Details Last Updated DateTime 12/05/2021 187.96 cm 33.5 kg/m2 901542.6 1 g 64 /min 124/84 mm[Hg] Yandy Irizarry [facility] 12/05/2021 07:47:48 Date Recorded Body height Body mass index (BMI) Body weight Provider Name and Address Organization Details Last Updated DateTime 12/06/2021 187.96 cm 33.4 kg/m2 812306.02 g Monica Ferrara, MS, RDN, LDN [address] [place], [address], [facility] 12/06/2021 09:26:01 Date Recorded Body height Body mass index (BMI) Body weight Heart rate Oxygen saturation Oxygen saturation in Arterial blood by Pulse oximetry Systolic And Diastolic Provider Name and Address Organization Details Last Updated DateTime 2 187.96 cm 33.7 kg/m2 465046 g 64 /min 98 % 98 % 123/82 mm[Hg] TAYLOR Escalera [facility] 2 12:22:10 Date Recorded Systolic And Diastolic Provider Name and Address Organization Details Last Updated DateTime 08/02/2021 132/84 mm[Hg] Disha Callejas MD [address] [place], [address], [facility] 08/02/2021 15:47:45 Date Recorded Body height Body mass index (BMI) Body weight Heart rate Oxygen saturation Oxygen saturation in Arterial blood by Pulse oximetry Systolic And Diastolic Provider Name and Address Organization Details Last Updated DateTime 187.96 cm 32.6 kg/m2 546933. 46 g 67 /min 97 % 97 % 138/92 mm[Hg] Ken Weldon [facility] 15:15:44 Social History Question Answer Notes LastModified by Organizat ion Details LastModified Time Tobacco Smoking Status Never Smoker Disha Callejas MD [address] [facility] [place], [address], [facility] 04/07/2020 09:18:54 How Much Tobacco Do You Chew? None Information not available 04/07/2020 Which Illicit Or Recreational Drugs Have You Used? Denies Information not available 04/07/2020 Hepatitis C Screen 06/16/2020 Nonreactive Information not available 06/17/2020 Tobacco Use (smoking, Smokeless Tobacco) No Information not available 04/07/2020 Date Of Tobacco Screen 08/01/2021 [email or web address] Information not available 08/01/2021 Members Of Household 1 Information not available 04/07/2020 Marital Status Informatio n not available 04/07/2020 What Was The Date Of Your Most Recent Tobacco Screening? 10/26/2021 [email or web address] Information not available 10/26/2021 How Many Children Do You Have? 4 Information not available 04/07/2020 What Is Your Relationship Status? [email or web address] Information not available 08/01/2021 Sex: Unknown Functional Status Question Answer Note LastModified by Organizat ion Details LastModified Time Do you use any illicit or recreational drugs? No [email or web address] Information not available 08/01/2021 What is your [...] Details Recorded Time zoster recombinant 0 completed Catherine Ramirez LPN [facility] 08/01/2021 15:38:02 COVID-19, mRNA, LNP-S, PF, 30 mcg/0.3 mL dose 1 completed Disha Callejas MD [address] [place] [address] [place], [address], [facility] 10/26/2021 11:31:11 COVID-19, mRNA, LNP-S, PF, 30 mcg/0.3 mL dose 1 completed Disha Callejas MD [address] [place] [address] [place], [address], [facility] 10/26/2021 11:31:11 Influenza, split virus, quadrivalent, PF 8 completed Disha Callejas MD [address] [place] [address] [place], [address], [facility] 10/26/2021 11:31:11 Influenza, split virus, trivalent, preservative 4 completed Disha Callejas MD [address] [place] [address] [place], [address], [facility] 10/26/2021 11:31:11 Influenza, split virus, trivalent, preservative 7 completed Disha Callejas MD [address] [place] [address], [place], [address], [facility] 10/26/2021 11:31:11 Influenza, split virus, quadrivalent, PF 1 completed Disha Callejas MD [address] [place] [address] [place], [address], [facility] 10/26/2021 11:31:11 Influenza, split virus, quadrivalent, PF 0 completed Disha Callejas MD [address] [place] [address] [place], [address], [facility] 10/26/2021 11:31:11 Influenza, split virus, trivalent, preservative 1 completed Disha Callejas MD [address] [place] [address] [place], [address], [facility] 10/26/2021 11:31:11 pneumococcal polysaccharide PPV23 1 completed Disha Callejas MD [address] [place] [address] [place], [address], [facility] 10/26/2021 11:31:11 Influenza, split virus, trivalent, preservative 5 completed Disha Callejas MD [address] [place] [address] [place], [address], [facility] 10/26/2021 11:31:11 Influenza, split virus, trivalent, preservative 2 completed Disha Callejas MD [address] [place] [address] [place], [address], [facility] 10/26/2021 11:31:11 Influenza, split virus, trivalent, preservative 6 completed Disha Callejas MD [address] [place] [address] [place], [address], [facility] 10/26/2021 11:31:11 Influenza, split virus, trivalent, preservative 3 completed Disha Callejas MD [address] [place], [address], [facility] 10/26/2021 11:31:11 Td (adult), 2 Lf tetanus toxoid, preservative free, adsorbed 1 completed Disha Callejas MD [address] [place], [address], [facility] 10/26/2021 11:31:11 Tdap 0 completed Yandy Irizarry CMA [facility], [facility] 06/16/2020 09:19:12 Past Encounters Encounter ID Performer Location Encounter Start Date Encounter Closed Date Diagnosis/Indication Diagnosis SNOMED-CT Code Diagnosis ICD10 Code Diagnosis IMO Codes Diagnosis Note [id number] Disha Callejas MD [address] [address] 04/07/2020 09:07:08 04/07/2020 09:33:17 Benign essential hypertension 7149499 I10 Patient has a history of hypertensi on for which he has been taking amlodipine 5mg and lisinopril 40mg daily. His blood pressure is currently well controlled . He will continue current medication s which were prescribed today. He will follow-up in 2 months for a physical. Glaucoma 74150990 H40.9 Patient has a history of glaucoma for which he uses eye drops. He has no refills at this time, but has an appointmen t scheduled with an eye doctor next month. Gastroesop hageal reflux disease 884473985 K21.9 Patient has a history of GERD for which he has been taking omeprazole 20mg daily. He notes that while he was in residential, he got a colonoscop y and was supposed to get an endoscopy as he intermitte ntly has been spitting up blood. GI referral placed and omeprazole refilled. History of malignant neoplasm of kidney 795351624 Z85.528 Patient has a history of a renal tumor which was removed in 2013. He has not had significan t follow-up since then. Recommende d nephrology evaluation . Referral placed. [id number] Disha Callejas MD [address] [address] 06/16/2020 08:29:53 06/16/2020 09:11:41 Adult health examination 734216389 Z00.00 Patient should discuss medical decisions with Health Care Proxy. Recommende d screenings included colonoscop y screening age 50, earlier based on family history/ri sk factors; one time screen for hepatitis C if born between 5654-4340 or has risk factors. Reviewed vaccines and current recommenda tions. Basic health topics include aerobic exercise, importance of healthy/ba lanced diet and minimizing caffeine and alcohol. Administra tion of diphtheria, pertussis, and tetanus vaccine 208274665 Z23 Patient due for Tdap vaccinatio n. Administer ed today. Screening for malignant neoplasm of colon 074634911 Z12.11 Patient reports a colonoscop y in September of 2019 while he was in residential. No records available, but states he has a history of polyps. Will plan for follow-up colonoscop y in 3-5 years. Varicella vaccination 68 874470 Z23 Patient due for shingles vaccinatio n. Prescribed to his pharmacy. Benign ess ential hypertension 8162153 I10 Patient has a history of hypertensi on for which he has been taking amlodipine 5mg and lisinopril 40mg daily. His blood pressure is currently well controlled . He will continue current medication s which were prescribed today. He will follow-up in 2 months for a physical. At [facility] risk of sexually transmitted infection 646417334 Z20.2 Patient was recently in residential and would like to be tested for STDs. Blood and urine obtained for testing today. Hyperlipid emia screening 088136091 Z13.220 Patient due for hyperlipid emia screening. Lipid panel obtained today. Large prostate 461531393 N40.0 Patient has a slightly enlarged prostate on examinatio n. Will check PSA today. Impotence of organic origin 871387632 N52.9 Patient has been struggling with getting and maintainin g an erection. Discussed risks and benefits of medication . Prescribed sildenafil 50mg daily as needed. Patient will follow-up if not improving. Hemorrhoids 14759746 K64 .9 Patient has internal hemorrhoid s which are causing him pressure and discomfort . Prescribed hydrocorti sone cream to use topically and help his symptoms. [id number] Carlton Hamilton MD [facility] [address] [place] [address] [address] [place] [address] 07/18/2020 16:45:30 07/18/2020 17:23:52 Hematemesis 2096937 K92.0 A few episodes of bringing up blood (he thinks from the stomach) in Aug and wishes an EGD. No melena. No other red flag ROS. On PRN omeprazole for occasional upper GI ROS. S/p distant treated H.Pylori without check of eradicatio n. Family his tory of cancer of colon 233990775 Z80.0 Father History of polyp of colon 114723546 Z86.010 On prior colons [id number] Donna Segal MD [facility] [address] [place] [address] 07/31/2020 14:46:41 07/31/2020 14:47:09 Viral screening 928124051 Z11.59 [id number] Vlad Escalera NP [address] [address] 09/19/2020 12:23:54 09/19/2020 12:48:00 Onychomycosis due to dermatophyte 653789583 B35.1 Patient educated about onychomyco sis and that the process to treat this can take some time. Patient will start on medication as directed and is aware of the side effects. Patient will follow up if no improvemen t after 1 month. If no improvemen t then try oral medication . Patient can call with any concerns. History of myocardial infarction [id number] I25.2 Patient stated he had a heart attack back in 2016 and had a pain a couple months ago which scared him. Patient hasn't had pain since. Patient would like a referral to cardiology . [id number] Donna Segal MD [facility] [address] [place] [phone] 10/07/2020 16:21:41 10/07/2020 16:22:35 Viral screening [id number] Z11.59 [id number] Disha Callejas MD [facility] use [address] [phone] 08/02/2021 15:02:27 08/02/2021 16:13:54 COVID-19 [id number] U07.1 Estefania was hospitaliz ed from 07/14/21-1 at [facility] for COVID-19 infection and pneumonia. He was treated with remdesivir and ceftriazon e/azithrom ycin. He is feeling much better, but continues to have a slight cough and some fatigue. Encouraged patient to work on rebuilding his stamina and use honey or cough drops to help with his cough. Patient will follow-up as needed. Prediabetes [id number] R7 3.03 Patient has a history of prediabete s. He would like to see a nutritioni st, referral placed. Benign ess ential hypertension [id number] I10 Patient has a history of hypertensi on for which he has been taking chlorthali done 12.5mg daily and lisinopril 40mg daily. His blood pressure is currently well controlled . He will continue current medication s which were prescribed today. He will follow-up in 2 months or earlier as needed. [id number] Disha Callejas MD [facility] [address] [place] [phone] 10/26/2021 10:51:54 10/26/2021 11:39:09 Adult health examination [id number] Z00.01 Patient should discuss medical decisions with Health Care Proxy. Recommende d screenings included colonoscop y screening age 50, earlier based on family history/ri sk factors; one time screen for hepatitis C if born between 5102-4868 or has risk factors. Reviewed vaccines and current recommenda tions. Basic health topics include aerobic exercise, importance of healthy/ba lanced diet and minimizing caffeine and alcohol. Administra tion of diphtheria, pertussis, and tetanus vaccine [id number] Z23 Patient is up to date, received TDAP in 2020. Screening for malignant neoplasm of colon [id number] Z12.11 Patient reports a colonoscop y in September of 2019 while he was in residential. No records available, but states he has a history of polyps. Will plan for follow-up colonoscop y in 3-5 years. Viral screening [id number] Z11.59 Non-reacti ve screening in 2020. Varicella vaccination [id number] Z23 Patient due for shingles vaccinatio n. Prescribed to his pharmacy. Benign ess ential hypertension [id number] I10 Patient has a history of hypertensi [...] controlled with emtoprolol succinate 50mg daily. Prediabetes [id number] R7 3.03 Patient has a history of prediabete s. Will check blood work today. Nodule of lung 108305511 R91.1 Patient was found to have a mass in his right lung. He is seeing pulmonolog y at [facility] and has had follow-up scans which demonstrat ed no growth of the area. History of partial nephrectomy [id number] Z90.5 Patient has a history of a partial nephrectom y for a mass on the kidney years ago. He is now having right flank pain which he states as the same as prior to his partial nephrectom y. Will obtain an ultrasound to evaluate the remaining kidney. Hematemesis [id number] K92. 0 Patient has a history of coughing up blood and hematemesi s (although has not vomited recently). He has had evaluation s of his lungs and is interested in an endoscopy to check his esophagus. Referral placed to GI. [id number] Caryn Jauregui NP [address] [phone] 12/05/2021 07:39:05 12/05/2021 08:06:25 Left lower quadrant pain [id number] R10.32 He states he has been having [...] with no improvemen t in symptoms. Diverticulitis [id number] K57.92 Patient noted with left lower quadrant [...] or with no improvemen t in symptoms. [id number] Monica Ferrara MS, RDN, LDN [facility] [address] [place] [address] [address] [place] [phone] 12/06/2021 08:04:43 12/06/2021 10:40:31 Prediabetes [id number] R73.03 Summary of Visit:Gi saavedra is a 51 year old primarily Slovenian speaking male referred for prediabete s. Jyoti [...] food groups/lis ts- What Can I Eat? Slovenian handout- Healthy Snack Slovenian handout- Healthy Plate Slovenian handout Educator Assessed Learning Barriers: language barrier [id number] Vlad Escalera NP [facility] [address] [place] [phone] 01/04/2022 12:15:26 01/04/2022 12:39:32 Arthritis of left knee [id number] M13.862 Suspected arthritis along with meniscus wear [...] Girard Member ID Guarantor Name 08/02/2021 1 [place] [employer] Jai Javier [id number] Jai Javier 10/31/2022 1 [facility]AN (MEDICAID HMO) [id number] Jai Javier [id number] Jai Javier 08/02/2021 2 [place] Jai Jiet [id number] Jai Herrera Notes Date Note Type Note Provider Name and Address Organization Details Recorded Time 08/02/2021 text/html Patient is a 51 year old male who presents today for a hospital follow-up. He was hospitalized from 07/14/21-07/18/21 for COVID. He was hospitalized at [facility]. He got antibiotics (ceftriaxone and azithromycin for pneumonia) and remdesivir while he was hospitalized. He is feeling much better since he got out of the hospital. Disha Callejas MD [address] [place] [address], [phone], [facility] 08/02/2021 15:50:26 10/26/2021 text/html Patient is a [...] prior to having surgery. Disha Callejas MD [address] [place] [address], [phone], [facility] 10/26/2021 11:40:45 12/05/2021 text/html Abdominal PainReported by Patient Patient is 51 year old male who presents for abdominal pain. [...] 2019 that showed diverticulosis. 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 Social Support:Primary Support Person: self, GFLiving Arrangements: lives with GF Previous Diet Education/Training:Pr evious Visit with Dietitian: none Meals and Dining:Meals per day:Snacks per day:Skips meals:Recent dietary changes: eating less latelySpecial diets in the past:Food Allergy or intolerances: none reportedPrimary Senior Ruby Developer: usually ptPrimary Food Consolidator:bothDining Out frequency: 1x per weekAlcohol Intake: noneSupplements: Diet recall:- Breakfast: sandwich w/ 1 slice ham and 1 slice cheese, 2 eggs, on potato bread- Lunch: chicken with panamanian fries OR empanadas OR sometimes mixed veggies [...] me Monica Ferrara, MS, RDN, LDN [address] [place], [phone], [facility] 12/29/2021 12:04:04 01/04/2022 text/html Patient [...] numbness, tingling or swelling. Disha Callejas MD [address] [place] [address], [place], [phone], [facility] 01/04/2022 16:38:41
== END 2025-06-21 13:46 | disposition home or self-care (01) ==
LOC: HO.HGS 13:19
PROVIDERS: PCP Internal Medicine; Visit Provider Surgery
DX: Z93.3 Colostomy status (principal)
CPT/HCPCS: 99213

== ENCOUNTER → 2025-06-21 13:18 | Outpatient (BNVA) | payer MEDICAID, SELFPAY | PROVIDERS: PCP Internal Medicine; Visit Provider Surgery | DX: Z93.3 Colostomy status (principal) | CPT/HCPCS: 99212 ==

== ENCOUNTER 2025-08-04 09:32 | Outpatient (AMB) | payer MEDICAID, SELFPAY ==
[2025-08-04 09:46] VITALS: BMI 35.3
--- NOTE | 2025-08-04 09:46 | MHC.OFFVIS ---
Vital Signs 08/04/25 09:46 Height 5 ft 11 in Weight 253 lb BMI 35.3 Intake Visit Reasons: discuss colonoscopy prior to colostomy reversal Intake Note: Patient presents for an assessment to discuss colonoscopy prior to colostomy reversal. Pt c/o; no complaints at this time. 09/08/2025: appt with GI Machine Burrer Required: No Accompanied by: Self / Same As Patient Allergies No Known Allergies Allergy (Mild, Verified 08/04/25 09:51) NONE Medication List - Last Reconciled 08/04/25 by Alexis Main MD [id number] 50-300-40 mg (Fioricet) 1 cap PO Q4-6H PRN ciclopirox 8% 1 appl topical BEDTIME PRN cyclobenzaprine 10 mg PO BEDTIME PRN docusate sodium (Colace) 100 mg PO BID docusate sodium (Colace) 100 mg PO BID hydrochlorothiazide 25 mg PO DAILY lisinopril 40 mg PO DAILY metoprolol succinate ER 25 mg PO DAILY mupirocin 2% (Centany) 1 appl topical TID 4 days mupirocin 2% (Centany) 1 appl topical TID 4 days pravastatin 40 mg PO DAILY HPI HPI discuss colonoscopy prior to colostomy reversal: Details: 55-year-old male here in the office schedule for a colonoscopy prior to reversal of his stoma. He had undergone urgent laparotomy and sigmoid resection and end colostomy for diverticulitis with microperforation with Dr. Bejarano last February,. He did well postoperatively He is deemed to be ready for reversal. He had a colonoscopy in [place], [place] in 1999. He said he was in long-term at that time. He said he was told to have another colonoscopy in 5 years because of polyps seen during that time. I have been requested to do a colonoscopy prior to reversal. His stoma has been functioning well. He says he feels well overall. [facility] Medical History Hypertension Diabetes Renal cancer Dyspnea Chest pain Abnormal chest x-ray Hemoptysis Surgical History H/O exploratory laparotomy (03/09/25) Social History Household Members: Family Housing: Apartment Do you presently have visiting nurse or other home services: No Alcohol intake: never Patient Tobacco Use Status: Never used Tobacco e-Cigarette/Vaping Use: Never Used service: No Current occupational status: employed Current occupation: [employer] Review of Systems Const Denies chills and Denies fever(s) Card Denies chest pain, Denies dyspnea and Denies dyspnea on exertion Resp Denies cough, Denies dyspnea and Denies dyspnea on exertion GI Details: Has a colostomy Denies hematochezia and Denies change in bowel habits Denies hematuria and Denies difficulty urinating Musc Denies back pain and Denies limited range of motion Neuro Denies focal weakness and Denies convulsions Psych Denies depression and Denies mood swings Physical Exam Vital Signs: BMI result Body Mass Index 35.3 Const General: comfortable and no acute distress Orientation/consciousness: patient oriented x3 Neck Neck: Yes no lymphadenopathy Resp Auscultation: clear to auscultation bilaterally Cardio Rhythm: regular rhythm GI Other: Colostomy in place on left, seems to be functioning well, midline incision well healed Palpation (GI): Soft to palpation, nontender and no guarding Neuro General: patient oriented x3 Assessment & Plan Assessment & Plan (1) Status post Nick procedure: Code(s): Z93.3 - Colostomy status Category: Surgical Plan: He is being planned for reversal of his colostomy. He says his last colonoscopy was in 1999 in [place], [place] and he was told to have another colonoscopy in 5 years as he was noted to have polyps. I therefore explained to him the technique of colonoscopy via the stoma in the rectum. I reviewed with him the risks including but not limited to bleeding and perforation, as well as the benefits and alternatives. He understands and says he agrees to proceed. This will be done on the same day as his reversal of his colostomy. Coding Level of Care Code Est Pt Level 3 (81378) Diagnoses Status post Nick procedure Z93.3
--- OUTSIDE RECORDS SUMMARY | 2025-08-04 10:44 | XMS_ITS | Clinical Summary ---
Author Organization [employer] Address [address] [place] [address] Care Team Providers Care Food Service Director Name Role Phone Kathy Hair MD Primary Care Provide r Allergies No known active allergies Medications naproxen (Naprosyn) 500 MG tablet TAKE 1 TABLET BY MOUTH TWICE A DAY 60 tablet 4 Active FREESTYLE LITE test stripIndications: Newly diagnosed diabetes (HCC) Use to test blood sugar 1 times daily 100 each 12 4 09/17/20 25 Active Lancets miscIndications:N ewly diagnosed diabetes (HCC) Use to test blood sugar 1 times daily 100 each 4 Active Alcohol Swabs 70 % padsIndications:N ewly diagnosed diabetes (HCC) Use to test blood sugar 1 times daily 100 each 4 Active Blood Glucose Monitoring Suppl (FreeStyle Charlotte Lite) w/Device kitIndications:Ne wly diagnosed diabetes (HCC) Use to test blood sugar 1 times daily 1 kit 4 Active ciclopirox (Penlac) 8 % solutionIndicatio ns:Onychomycosis [...] 1 capsule by mouth 2 times daily. 5 Active hydroCHLOROthiazi de 12.5 MG tabletIndications :Essential hypertension Take 1 tablet (12.5 mg) by mouth Once per day. 30 tablet 11 5 04/14/20 26 Active lisinopril (Prinivil) 20 MG tabletIndications :Essential hypertension Take 1 tablet (20 mg) by mouth Once per day. 30 tablet 11 5 04/14/20 26 Active metoprolol succinate XL (Toprol-XL) 25 MG 24 hr tabletIndications :Essential hypertension TAKE 1 TABLET BY MOUTH EVERY DAY. DO NOT CRUSH OR CHEW. 90 tablet 1 5 Active pravastatin (Pravachol) 40 MG tabletIndications :Coronary artery disease involving [place] coronary artery of [place] heart without angina pectoris Take 1 tablet (40 mg) by mouth Once per day. 30 tablet 11 5 04/14/20 26 Active Cialis 10 MG tablet TAKE 1 TABLET 1 HOUR BEFORE SEXUAL RELATIONS ONCE DAILY NEEDED. 20 tablet 5 Active Active Problems Problem Noted Date Diagnosed [...] with specialist Coronary artery disease invo lving [place] coronary artery of [place] heart without angina pectoris 04/14/2025 Assessment & Plan (04/14/2025 11:20 AM EDT): Continue to follow-up with cardiology Today I added pravastatin 40 mg daily, patient did not tolerate atorvastatin he explained he just did not feel well taking the medication I decided to reduce the doses of lisinopril and hydrochlorothiazide for blood pressure but to continue metoprolol 25 mg daily S/P colostomy ([facility]) 04/14/2025 Assessment & Plan (04/23/2025 1:16 PM [...] History of renal carcinoma 10/02/2023 History of [place] (myocardial infarction) 10/02/2023 Resolved Problems Problem Noted [...] Encounters Date Type Department Care Team Description 07/20/2025 Patient Outreach [facility] [address] [place] [phone] Kathy Hair MD Pre-visit Planning (Pre visit planning unable to LVM ) 07/13/2025 Telephone [facility] [address] [place] [address] Kathy Hair MD FMLA Form (I called the patient, regarding a Supplementary Claim Report, from [employer]. I reached a voicemail, and left a message asking him to return my call at extension [phone], or he may reach the forms nurse at ext [phone].) 06/14/2025 Orders Only GENERIC EXTERNAL DATA DEPARTMENT Provider, Generic External Data 06/10/2025 Refill [facility] [address] [place] [address] Kathy Hair MD from Last 3 Months Immunizations Immunization Administration [...] Care Team (Late st Contact Info) Description 09/28/2025 9:15 AM EST Office Visit [facility] [address] [place] [address] Kathy Hair MD [address] [place] [address] Health Maintenance Due Date Last Done Comments CT Colonography 1970 Colonoscopy 1970 Colorectal Cancer Screening 1970 FIT DNA/Cologuard 1970 FIT 1970 FOBT 1970 Sigmoidoscopy 1970 Diabetes: Foot Exam 1980 Eye Exam 1980 Hepatitis B Vaccines (1 of 3 - 19+ 3-dose series) 1989 Zoster Vaccines (2 of 2) 08/16/2020 06/21/2020 COVID-19 Vaccine ( - season) 2025 02/01/2021, 01/11/2021 Influenza Vaccine (#1) 2025 , 06/23/2021, 06/06/2020, Additional history exists Alcohol/Substance Use Screening 09/15/2025 09/15/2024 Depression Screening 09/15/2025 09/15/2024, 09/15/20 Diabetes: Hemoglobin A1C 10/24/2025 08 025, 04/14/2025, 09/15/2024 SDOH Screening 12/07/2025 12/07/2024 [...] Associated Diagnosis Comments SED RATE BY MODIFIED AMANDAERGREN Routine 06/14/2025 1:22 PM EDT MAGNESIUM Routine [...] complication, without long-term current use of insulin ([facility]) ALBUMIN, RANDOM URINE W/CREATININE Routine 04/14/2025 10:21 [...] Results * Influenza A B2 ID NOW (López) (06/14/2025 1:22 PM EDT) IDNOW SERIAL# [id number] [facility] Influenza A Negative Negative [facility] Influenza B2 Negative Negative [facility] Influenza A B2 Note See Note [facility] Comment:The López ID NOW In fluenza [...] LAB MICROBIOLOGY - GENERAL ORDERABLES Final Result [facility] [address] [place] [phone] * COVID-19 ID NOW (LÓPEZ) (06/14/2025 1:22 PM EDT) IDNOW SERIAL# [id number] [facility] COVID-19 TEST Negative Negative [facility] COVID-19 NOTE See Note [facility] Comment: Results are for the identification of SARS-CoV2 RNA. TheSARS-CoV2 RNA is generally detectable in respiratory samplesduring the acute phase of infection. Positive results areindicative of the presence of SARS-CoV-2 RNA; clinicalcorrelation with patient history and other diagnosticinformation is necessary to determine patient infectionstatus. Positive results do not rule out bacterial infectionor co- infection with other viruses.Testing facilities within the [facility] and [facility] are required to report all positive [...] use by authorized laboratories.Testing performed on the RPI [employer]) NOW utilizing NAAT. 06/14/2025 1:22 PM EDT 06/14/2025 1:26 PM EDT us Generic External Data Provider LAB MOLECULAR MARCOS GNOSTICS ORDERABLES Final Result [facility] [address] [place] [address] [phone] * (ABNORMAL) CBC auto differential (06/14/2025 1:22 PM EDT) White Blood Count 5.7 4.8 - 10.8 X10*3/uL [facility] Red Blood Count 4.77 4.60 - 5.80 X10*6/uL [facility] Hemoglobin 14.0 14.0 - 18.0 g/dl [facility] Hematocrit 41.4(L) 42.0 - 52.0 % [facility] Mean Corpuscular Volume 86.8 80.0 - 98.0 fL [facility] Mean Corpuscular Hemoglobin 29.4 27.0 - 33.0 pg [facility] Mean Corpuscular HGB Conc 33.8 31.0 - 36.0 g/dl [facility] Red Cell Distribution Width 13.5 11.0 - 16.0 % [facility] Platelet Count 267 160 - 400 X10*3/uL [facility] Mean Platelet Volume 10.8 9.4 - 12.4 fL [facility] Neutrophils Percent Auto 55.8 45 - 73 % [facility] Imm Gran Pct Auto 0.2 0.0 - 0.4 % [facility] Lymphocytes Percent Auto 30.4 20 - 40 % [facility] Monocytes Percent Auto 11.1(H) 2 - 11 % [facility] Eosinophils Percent Auto 1.6 0 - 4 % [facility] Basophils Percent Auto 0.9 0 - 2 % [facility] NRBC Pct Auto 0.0 0.0 - 0.2 /100WBC [facility] Neutrophils Absolute Auto 3.2 2.0 - 8.3 x10*3/uL [facility] Imm Gran Abs Auto 0.01 0.00 - 0.03 X10*3/uL [facility] Lymphocytes Absolute Auto 1.7 1.2 - 4.9 X10*3/uL [facility] Monocytes Absolute Auto 0.6 0.1 - 1.2 X10*3/uL [facility] Eosinophils Absolute Auto 0.1 0.0 - 0.4 X10*3/uL [facility] Basophils Absolute Auto 0.1 0.0 - 0.2 X10*3/uL [facility] NRBC Abs Auto 0.000 0.0 - 0.012 X10*3/uL [facility] 06/14/2025 1:22 PM EDT 06/14/2025 1:26 PM EDT us Generic External Data Provider LAB BLOOD ORDERAB LES Final Result Performing Organization Address [facility] de Phone Number [facility] [address] [place] [phone] * Sed Rate by Modified Emilianoren (06/14/2025 1:22 PM EDT) Pathologist [facility] Erythrocyte Sedimentation Rate 7 0 - 15 MM/HR [facility] Comment:Patients with polycy themia and many hemoglobin abnormalitiesmay have depressed sed rates whereas patients with anemiamay have elevated sed rates. 06/14/2025 1:22 PM EDT 06/14/2025 4:15 PM EDT Generic External Data Provider LAB BLOOD ORDERAB LES Final Result Performing Organization Address [facility] Phone Number [facility] [address] [place] [address] [phone] * Magnesium (06/14/2025 1:22 PM EDT) Pathologist [facility] Magnesium 2.0 1.6 - 2.6 mg/dL [facility] 06/14/2025 1:22 PM EDT 06/14/2025 1:26 PM EDT Generic External Data Provider LAB BLOOD ORDERAB LES Final Result Performing Organization Address [facility] de Phone Number [facility] [address] [place] [address] [phone] * (ABNORMAL) Comprehensive Metabolic Panel (06/14/2025 1:22 PM EDT) Pathologist [facility] Sodium 140 135 - 145 mmol/L [facility] Potassium 3.8 3.3 - 5.1 mmol/L [facility] Chloride 102 96 - 108 mmol/L [facility] Carbon Dioxide 32(H) 22 - 29 mmol/L [facility] Anion Gap 10(L) 12 - 20 [facility] Urea Nitrogen (BUN) 13 9 - 16 mg/dL [facility] Creatinine, Serum 0.75 0.5 - 1.4 mg/dL [facility] Creatinine Clr Calc Pharmacy 117.8 [facility] Comment:eGFR (calculated fro m the MDRD study equation) and eCrCl(calculated from the Cockcroft-Gault equation) are based ondifferent parameters and may not yield comparable results.If eCrCl result is absurd, please check patient'sheight/weight. Estimated Glomerular Filt Rate >60 [facility] Comment:Chronic Kidney Disea se: Estimated GFR < 60 mL/min/1.16h1Pjncbp Kidney Disease: Estimated GFR < 15 mL/min/1.73m2 Glucose 104 60 - 115 mg/dL [facility] Calcium 9.3 8.4 - 10.2 mg/dL [facility] Bilirubin, Total 0.4 0.0 - 1.0 mg/dL [facility] Aspartate Amino Transferase 26 5 - 37 U/L [facility] Alanine Aminotransferase 37 0 - 40 U/L [facility] Total Protein 7.4 6.5 - 8.0 g/dL [facility] Albumin Level 4.0 3.5 - 5.0 g/dL [facility] Alkaline Phosphatase 56 39 - 117 U/L [facility] 06/14/2025 1:22 PM EDT 06/14/2025 1:26 PM EDT us Generic External Data Provider LAB BLOOD ORDERAB LES Final Result [facility] [address] [place] [phone] * (ABNORMAL) POCT HGB A1C (04/23/2025 10:54 AM EDT) Hemoglobin A1C 6.1(A) 4.0 - 5.7 % Blood 04/23/2025 10:5 4 AM EDT us Kathy Jennings MD POINT OF CARE TEST EN TER/EDIT ORDERABLES Final Result * Albumin, Random Urine W/Creatinine (04/14/2025 10:21 AM EDT) Creatinine, Urine 136.09 mg/dL [facility] Microalbumin Urine 8.0 mg/L [facility] Microalbum Creatinine Ratio Ur 5.8 <30 ug/mg cr [facility] Comment:Albumin/Creatinine R atio Reference Ranges: Normal: < 30 ug/mg creatinine Microalbuminuria: 30 - 300 ug/mg creatinineClinical Albuminuria: > 300 ug/mg creatinine Urine (Urine, Random) 04/14/2025 10:21 AM EDT 04/14/2025 11:11 AM EDT us Kathy Jennings MD LAB URINE ORDERABLES Final Result [facility] [address] [place] [phone] * (ABNORMAL) Lipid Panel, Standard (04/14/2025 10:21 AM EDT) Triglycerides 169(H) <150 mg/dL [facility] Comment:Desirable Triglyceri de: less than 150 mg/dLBorderline High Triglyceride 150-199 mg/dLHigh Triglyceride: 200-499 mg/dLVery High Triglyceride: greater than or equal to 5OO mg/dL Cholesterol 215(H) <200 mg/dL [facility] Comment:Desirable Cholestero l: less than 200 mg/dLBorderline High Cholesterol: 200-239 mg/dLHigh Cholesterol: greater than 239 mg/dL LDL Cholesterol Calculated 142(H) <100 mg/dL [facility] Comment:Desirable LDL: less than 100 mg/dLNear Optimal/Above Optimal LDL: 110- 129 mg/dLBorderline High LDL: 130-159 mg/dLHigh LDL: 160-189 mg/dLVery High LDL: greater than or equal to 190 mg/dL HDL Cholesterol 40(L) >40 mg/dL [facility] Comment:Desirable HDL: great er than 40 mg/dL Note: This HDL assay may give artificially low results in patients with liver disease. Blood Venous blood specimen / Unknown 04/14/2025 10:21 AM EDT 04/14/2025 11:24 AM EDT us Kathy Jennings MD LAB BLOOD ORDERABLES Final Result Performing Organization Address [facility]/ZIP Co de Phone Number [facility] [address] [place] [address] [phone] * Hepatitis C Antibody with Reflex to HCV, RNA, Quantitative, Real-Time PCR (01/22/2025 11:06 AM EDT) Hepatitis C Antibody Nonreactive Nonreactive [facility] Comment:Antibodies to HCV no t detected; does not exclude early acuteHCV infection. Blood Venous blood specimen / Unknown 01/22/2025 11:06 AM EDT 01/22/2025 4:04 PM EDT us Ward Dorsey MD LAB BLOOD ORDERABLES Final Resul t Performing Organization Address [facility] Co de Phone Number [facility] [address] [place] [address] [phone] * HIV-1/2 Antigen and Antibodies, Fourth Generation, with Reflexes (01/22/2025 11:06 AM EDT) HIV AB/AG Nonreactive Nonreactive [facility] Comment:HIV-1 p24 Ag and/or HIV-1/HIV-2 Ab not detected.A test result that is nonreactive does not exclude thepossibility of exposure to or infection with HIV-1 and/orHIV-2. Nonreactive results in this assay for individualswith prior exposure to HIV-1 and/or HIV-2 may be due toantigen and antibody levels that are below the limit ofdetection of this assay.The [employer] HIV Ag/Ab Combo assay result andsupplemental assay results should be interpreted inconjunction with the patient's clinical presentation,history and other laboratory results. If the results areinconsistent with clinical evidence, additional testing issuggested to confirm the result. Blood Venous blood specimen / Unknown 01/22/2025 11:06 AM EDT 01/22/2025 4:04 PM EDT us Ward Dorsey MD LAB BLOOD ORDERABLES Final Resul t [facility] [address] [place] [phone] from Last 3 Months or Most Recently Relevant to Health Maintenance Insurance [facility] C3 Care Teams Food Service Director Relationship Specialty Start Date End Date Kathy Hair MD [address] [place] [phone] PCP - General Internal Medicine [facility]
--- OUTSIDE RECORDS SUMMARY | 2025-08-04 10:44 | XMS_ITS | Encounter Summary ---
Author Organization [employer] Address [address] [place] [address] Care Team Providers Care Licensing Manager Name Role Phone Kathy Hair MD Primary Care Provide r Reason for Visit * Reason Comments Med Refill Encounter Details Date Type Department Care Team (Late Contact Info) Description 01/10/2024 Refill [facility] [address] [place] [address] Annelise Joseph FNP [address] [place] [address] Social History Tobacco Use Types Packs/Day Years [...] Department Care Team (Late Contact Info) Description 09/28/2025 9:15 AM EST Office Visit [facility] [address] [place] [phone] Kathy Hair MD [address] [place] [phone] documented as of this encounter Visit Diagnoses Not on filedocumented in this encounter Care Teams Licensing Manager Relationship Specialty Start Date End Date Kathy Hair MD [address] [place] [phone] PCP - General Internal Medicine 09/15/24 Maikel RODRIGUEZ 04/11/25 documented as of this encounter
--- OUTSIDE RECORDS SUMMARY | 2025-08-04 10:44 | XMS_ITS | Encounter Summary ---
Author Organization [employer] Address [address] [place] [address] Care Team Providers Care Switchboard Manager Name Role Phone Kathy Hair MD Primary Care Provide r Reason for Visit * Reason Comments Med Refill Encounter Details Date Type Department Care Team (Late Contact Info) Description 06/22/2024 Refill [facility] [address] [place] [phone] Name, MD Wenceslao [address] [place] [address] [phone] Social History Tobacco Use Types Packs/Day Years [...] Description 09/28/2025 9:15 AM EST Office [facility] [address] [place] [phone] Kathy Hair MD [address] [place] [address] [phone] documented as of this encounter Visit Diagnoses Not on filedocumented in this encounter Care Teams Switchboard Manager Relationship Specialty Start Date End Date Kathy Hair MD [address] [place] [address] [phone] PCP - General Internal Medicine 09/15/24 Maikel RODRIGUEZ 04/11/25 documented as of this encounter
--- OUTSIDE RECORDS SUMMARY | 2025-08-04 10:44 | XMS_ITS | Encounter Summary ---
Author Organization [employer] Address [address] [place] [address] Care Team Providers Care Commercial Energy Auditor Name Role Phone Kathy Hair MD Primary Care Provide r Reason for Visit * Reason Comments Med Refill Encounter Details Date Type Department Care Team (Late st Contact Info) Description 07/15/2024 Refill [facility] [address] [place] [phone] Kenan Mays MD [address] [place] [address] Essential hypertension Social History Tobacco Use Types [...] Description 09/28/2025 9:15 AM EST Office Visit [facility] [address] [place] [phone] Kathy Hair MD [address] [place] [phone] documented as of this encounter Visit Diagnoses Diagnosis Essential hypertension Unspecified essential hypertension documented in this encounter Care Teams Commercial Energy Auditor Relationship Specialty Start Date End Date Kathy Hair MD [address] [place] [address] [phone] PCP - General Internal Medicine 09/15/24 Maikel RODRIGUEZ 04/11/25 documented as of this encounter
--- OUTSIDE RECORDS SUMMARY | 2025-08-04 10:44 | XMS_ITS | Encounter Summary ---
Author Organization [employer] Address [address] [place] [address] Care Team Providers Care Base Wad Operator Adjuster Name Role Phone Kathy Hair MD Primary Care Provide r Reason for Visit * Reason Comments Med Refill Encounter Details Date Type Department Care Team (Late st Contact Info) Description 07/15/2024 Refill [facility] [address] [place] [phone] Kenan Mays MD [address] [place] [address] Essential hypertension Social History Tobacco Use Types [...] Description 09/28/2025 9:15 AM EST Office Visit [facility] [address] [place] [phone] Kathy Hair MD [address] [place] [phone] documented as of this encounter Visit Diagnoses Diagnosis Essential hypertension Unspecified essential hypertension documented in this encounter Care Teams Base Wad Operator Adjuster Relationship Specialty Start Date End Date Kathy Hair MD [address] [place] [address] [phone] PCP - General Internal Medicine 09/15/24 Maikel RODRIGUEZ 04/11/25 documented as of this encounter
--- OUTSIDE RECORDS SUMMARY | 2025-08-04 10:44 | XMS_ITS | Encounter Summary ---
Author Organization [employer] Address [address] [facility] 7 [place] [address] Care Team Providers Care Industrial Sales Representative Name Role Phone Kathy Hair MD Primary Care Provide r Reason for Visit * Reason Comments Med Refill Encounter Details Date Type Department Care Team (Late st Contact Info) Description 04/21/2024 Refill [facility] [address] [place] [address] [phone] Name, MD Wenceslao [address] [place] [phone] Essential hypertension Social History Tobacco Use Types [...] Description 09/28/2025 9:15 AM EST Office Visit [facility] [address] [place] [phone] Kathy Hair MD [address] [place] [address] [phone] documented as of this encounter Visit Diagnoses Diagnosis Essential hypertension Unspecified essential hypertension documented in this encounter Care Teams Industrial Sales Representative Relationship Specialty Start Date End Date Kathy Hair MD [address] [place] [address] [phone] PCP - General Internal Medicine 09/15/24 Maikel RODRIGUEZ 04/11/25 documented as of this encounter
--- OUTSIDE RECORDS SUMMARY | 2025-08-04 10:45 | XMS_ITS | Encounter Summary ---
Author Organization [employer] Address [address] [place] [address] Care Team Providers Care Print Finisher Name Role Phone Kathy Hair MD Primary Care Provide r Reason for Visit * Reason Comments Med Change Request Encounter Details Date Type Department Care Team ([facility] st Contact Info) Description 02/10/2025 Refill [facility] [address] [place] [address] Kenan Mays MD [address] [place] [address] Social History Tobacco Use Types Packs/Day Years [...] Description 09/28/2025 9:15 AM EST Office Visit [facility] [address] [place] [phone] Kathy Hair MD [address] [place] [address] [phone] documented as of this encounter Visit Diagnoses Not on filedocumented in this encounter Additional Health Concerns Assessment Noted Time PHQ-9 Depression Total Score: 0 09/15/20 10:07 AM EST documented as of this encounter Care Teams Print Finisher Relationship Specialty Start Date End Date Kathy Hair MD [address] [place] [address] [phone] PCP - General Internal Medicine 09/15/24 [facility] 04/11/25 documented as of this encounter
--- OUTSIDE RECORDS SUMMARY | 2025-08-04 10:45 | XMS_ITS | Encounter Summary ---
Author Organization [employer] Address [address] [facility] 7 [place] [address] Care Team Providers Care Backup Administrative Coordinator Name Role Phone Kathy Hair MD Primary Care Provide r Reason for Visit * Reason Onset Date Comments New Patient 06/28/2023 Encounter Details Date Type Department Care Team (Late st Contact Info) Description 06/28/2023 Telephone [facility] [address] [place] [address] [phone] Beny Renteria MD [address] [place], [place] [phone] New Patient Social History Tobacco Use Types [...] been transfer over to wait list for RN DISCHARGE. EFFECTIVE SINCE 06/28/2023 documented in this encounter Plan of Treatment Upcoming Encounters Date Type Department Care Team (Late st Contact Info) Description 09/28/2025 9:15 AM EST Office Visit [facility] [address] [place] [phone] Kathy Hair MD [address] [place] [address] documented as of this encounter Visit Diagnoses Not on filedocumented in this encounter Care Teams Backup Administrative Coordinator Relationship Specialty Start Date End Date Kathy Hair MD [address] [place] [phone] PCP - General Internal Medicine 09/15/24 Maikel TINOCOA 04/11/25 documented as of this encounter
--- OUTSIDE RECORDS SUMMARY | 2025-08-04 10:45 | XMS_ITS | Encounter Summary ---
Author Organization [employer] Address [address] [place] [address] Care Team Providers Care Photovoltaic Installation Technician Name Role Phone Kathy Hair MD Primary Care Provide r Reason for Visit * Reason Comments Med Refill Encounter Details Date Type Department Care Team (Late st Contact Info) Description 07/15/2024 Refill [facility] [address] [place] [phone] Kenan Mays MD [address] [place] [address] Essential hypertension Social History Tobacco Use Types [...] Description 09/28/2025 9:15 AM EST Office Visit [facility] [address] [place] [phone] Kathy Hair MD [address] [place] [phone] documented as of this encounter Visit Diagnoses Diagnosis Essential hypertension Unspecified essential hypertension documented in this encounter Care Teams Photovoltaic Installation Technician Relationship Specialty Start Date End Date Kathy Hair MD [address] [place] [phone] PCP - General Internal Medicine 09/15/24 Maikel RODRIGUEZ 04/11/25 documented as of this encounter
--- OUTSIDE RECORDS SUMMARY | 2025-08-04 10:45 | XMS_ITS | Clinical Summary ---
Author Organization [facility] Address [address] [place] [address] Care Team Providers Care Destination Sign Repairer Name Role Phone Disha Callejas MD Primary [...] Td or Tdap) 06/16/2030 06/16/2020, 09/30/2010, 09/30/2010 Procedures * Due to [place] [employer] law, this organization might not be sharing negative HIV tests. Procedure Name Priority Date/Time Associated Diagnosis Comments COMPREHENSIVE METABOLIC PANEL Routine 07/19/2021 2:56 AM EDT from Last 3 Months or Most Recently Relevant to Health Maintenance Results * Due to [place] [employer] law, this organization might not be sharing negative HIV tests. * (ABNORMAL) Comprehensive Metabolic Panel (07/19/2021 2:56 AM EDT) NA 136 135 - 145 mmol/L 07/19/2021 3:39 AM EDT [facility] K 3.9 3.5 - 5.3 mmol/L 07/19/2021 3:39 AM EDT [facility] Cl 103 97 - 110 mmol/L 07/19/2021 3:39 AM EDT [facility] CO2 25 24 - 32 mmol/L 07/19/2021 3:39 AM EDT [facility] Anion Gap 8 5 - 15 07/19/2021 3:39 AM EDT [facility] Glucose 138(H) 70 - 99 mg/dL 07/19/2021 3:39 AM EDT [facility] Creatinine 0.99 0.60 - 1.30 mg/dL 07/19/2021 3:39 AM EDT [facility] eGFR Non- 88(L) >=90 mL/min/BS A 07/19/2021 3:39 AM EDT [facility] eGFR >90 >=90 mL/min/BS A 07/19/2021 3:39 AM EDT [facility] Comment: Units = mL/min/1.73 m2 Glomerular Filtration Rate (GFR) is estimated based on the CKD-EPI Creatinine Equation (2009). Stage Description GFR 1 Normal >=90 mL/min/BSA 2 Mildly decreased GFR 60-89 mL/min/BSA 3 Moderately decreased GFR 30-59 mL/min/BSA 4 Severely decreased GFR 15-29 mL/min/BSA 5 Kidney Failure <15 mL/min/BSA Calcium 8.7 8.7 - 10.7 mg/dL 07/19/2021 3:39 AM EDT [facility] Total Protein 7.3 6.0 - 8.0 g/dL 07/19/2021 3:39 AM EDT [facility] Albumin 3.5 3.5 - 4.8 g/dL 07/19/2021 3:39 AM EDT [facility] Bilirubin, Total 0.2(L) 0.3 - 1.2 mg/dL 07/19/2021 3:39 AM EDT [facility] Alkaline Phosphatase 46 30 - 115 U/L 07/19/2021 3:39 AM EDT [facility] AST 13 10 - 40 U/L 07/19/2021 3:39 AM EDT [facility] [place] [facility] ALT 16 10 - 40 U/L 07/19/2021 3:39 AM EDT [facility] BUN 29(H) 7 - 23 mg/dL 07/19/2021 3:39 AM EDT [facility] Blood Structure of peripheral vein / Unknown Venipuncture / Unknown 07/19/2021 2:56 AM EDT 07/19/2021 3:09 AM EDT us Marietta Wilhelm NP LAB BLOOD ORDERABLES Final Result [facility] [address] [place] [address], from Last 3 Months or Most Recently Relevant to Health Maintenance Insurance [facility] MEDICAID Advance Directives * Full Code (Latest Code Status on File) Date Activated Date Inactivated Comments 07/15/2021 3:20 AM 07/19/2021 5:11 PM Care Teams Destination Sign Repairer Relationship Specialty Start Date End Date Disha Callejas MD PCP - General Family Medicine 04/27/20
== END 2025-08-04 10:09 | disposition home or self-care (01) ==
PROVIDERS: Visit Provider Surgery
DX: Z93.3 Colostomy status (principal)
CPT/HCPCS: 99213

== ENCOUNTER → 2025-08-04 09:32 | Outpatient (BNVA) | payer MEDICAID, SELFPAY | PROVIDERS: Visit Provider Surgery | DX: Z01.818 Encounter for other preprocedural examination (principal); Z93.3 Colostomy status | CPT/HCPCS: 99212 ==

== ENCOUNTER 2025-08-11 08:16 | Outpatient (REF) | payer MEDICAID, SELFPAY ==
--- NOTE | ~2025-08-11 | FL_ITS ---
EXAMINATION: XR BARIUM SWALLOW CLINICAL INFORMATION: feels food gets stuck COMPARISON: None available. TECHNIQUE: Barium swallow was performed using thin and thick barium and effervescent granules. Barium tablet was also administered. FINDINGS: Swallowing mechanism is normal. No aspiration or penetration. Esophageal motility is normal. There is mild gastroesophageal reflux. There is mild mucosal irregularity questionable for esophagitis in the mid and distal esophagus. No hernia, mass or stricture. Barium tablet passed freely into the stomach. FLUOROSCOPY TIME: 1 minute 52 seconds DOSE AREA PRODUCT: 1445 uGy-m2 (microgray-meter squared) FL/FL barium swallow with air IMPRESSION: Mild gastroesophageal reflux and question mild esophagitis of the mid and distal thoracic esophagus. Electronically signed by: Ileana Palafox MD 08/11/2025 09:16 AM [facility]
--- OUTSIDE RECORDS SUMMARY | 2025-08-11 15:53 | XMS_ITS | Clinical Summary ---
Author Organization [facility] Address [address] [place] [address] Care Team Providers Care Supervisor Money Room Name Role Phone Disha Callejas MD Primary [...] ual Screening 09/23/2024 Influenza Vaccine (#1) 2025 , 07/23/2018, 07/22/2017, Additional history exists COVID-19 Vaccine (3 - 2024-2 6 season) 2025 02/01/2021, 01/11/2021 DTaP,Tdap,and Td Vaccines (2 - Td or Tdap) 06/16/2030 06/16/2020, 09/30/2010, 09/30/2010 Procedures * Due to [place] [employer] law, this organization might not be sharing negative HIV tests. Procedure Name Priority Date/Time Associated Diagnosis Comments COMPREHENSIVE METABOLIC PANEL Routine 07/19/2021 2:56 AM EDT from Last 3 Months or Most Recently Relevant to Health Maintenance Results * Due to [place] [employer] law, this organization might not be sharing negative HIV tests. * (ABNORMAL) Comprehensive Metabolic Panel (07/19/2021 2:56 AM EDT) NA 136 135 - 145 mmol/L 07/19/2021 3:39 AM EDT [facility] K 3.9 3.5 - 5.3 mmol/L 07/19/2021 3:39 AM EDT [facility] Cl 103 97 - 110 mmol/L 07/19/2021 3:39 AM EDT [facility] CO2 25 24 - 32 mmol/L 07/19/2021 3:39 AM EDT [facility] Anion Gap 8 5 - 15 07/19/2021 3:39 AM EDT [facility] Glucose 138(H) 70 - 99 mg/dL 07/19/2021 3:39 AM EDT [facility] Creatinine 0.99 0.60 - 1.30 mg/dL 07/19/2021 3:39 AM EDT [facility] eGFR Non- 88(L) >=90 mL/min/BS A 07/19/2021 3:39 AM EDT [facility] [facility] eGFR >90 >=90 mL/min/BS A 07/19/2021 3:39 AM EDT [facility] [facility] Comment: Units = mL/min/1.73 m2 Glomerular Filtration Rate (GFR) is estimated based on the CKD-EPI Creatinine Equation (2009). Stage Description GFR 1 Normal >=90 mL/min/BSA 2 Mildly decreased GFR 60-89 mL/min/BSA 3 Moderately decreased GFR 30-59 mL/min/BSA 4 Severely decreased GFR 15-29 mL/min/BSA 5 Kidney Failure <15 mL/min/BSA Calcium 8.7 8.7 - 10.7 mg/dL 07/19/2021 3:39 AM EDT [facility] Total Protein 7.3 6.0 - 8.0 g/dL 07/19/2021 3:39 AM EDT [facility] Albumin 3.5 3.5 - 4.8 g/dL 07/19/2021 3:39 AM EDT [facility] Bilirubin, Total 0.2(L) 0.3 - 1.2 mg/dL 07/19/2021 3:39 AM EDT [facility] Alkaline Phosphatase 46 30 - 115 U/L 07/19/2021 3:39 AM EDT [facility] AST 13 10 - 40 U/L 07/19/2021 3:39 AM EDT [facility] ALT 16 10 - 40 U/L 07/19/2021 3:39 AM EDT [facility] BUN 29(H) 7 - 23 mg/dL 07/19/2021 3:39 AM EDT [facility] Blood Structure of peripheral vein / Unknown Venipuncture / Unknown 07/19/2021 2:56 AM EDT 07/19/2021 3:09 AM EDT us Marietta Wilhelm NP LAB BLOOD ORDERABLES Final Result [facility] [address] [place] [address], from Last 3 Months or Most Recently Relevant to Health Maintenance Insurance [facility] MEDICAID Advance Directives * Full Code (Latest Code Status on File) Date Activated Date Inactivated Comments 07/15/2021 3:20 AM 07/19/2021 5:11 PM Care Teams Supervisor Money Room Relationship Specialty Start Date End Date Disha Callejas MD PCP - General Family Medicine 04/27/20
--- OUTSIDE RECORDS SUMMARY | 2025-08-11 15:54 | XMS_ITS | Data Portability ---
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 Plan of Treatment Reminders Order Date Submit Date Provider Last Modified By Organization Details Last Modified Time Details Appointments None recorded. Lab urinalysis, dipstick [address] ([facility]), [facility] Dylan, [place], [address], 08:13:50 culture, urine 2021 [facility], [address] [place] [address], [address], 10:17:56 HbA1c (hemoglobin A1c), blood 2021 022 [email or web address] [facility] Patient [facility], [address] [place] [address], [address], 10:40:35 CMP, serum or plasma 2021 022 [facility], [address] [place] [address], [address], 17:17:13 lipid panel, serum 2021 [facility], [address] [place] [address], [address], 17:17:14 Referral gastroenter ologist referral [email or web address] [place] [address] - Gi, [address] [facility], [address], [place], [address], 2 08:26:45 nutritionis t/dietitian referral 2020 [email or web address] [place] [address] (Nutrition Services), [address] [place], [address], 2 15:42:35 Procedures None recorded. Surgeries None recorded. Imaging US, kidney - right kidney 2021 022 [facility] (Central Scheduling), [address] [place], [address], 08:54:00 Medication Orders diclofenac 1 % topical gel 2021 022 [facility]/Pharmacy #[id number], [address] [place], [place], [id number], 2 12:33:58 metronidazo le 500 mg tablet [address]/Pharmacy #[id number], [address] [place], [place], [id number], 2 13:50:46 Cipro 500 mg tablet [address]/Pharmacy #[id number], [address] [place], [place], [id number], 13:50:40 Patient Targets Encounter Date Encounter Id Patient Goals Patient Target Last Modified By Organization Details Last Modified Time 12/06/2021 [id number] Goals: 1. Promote weight loss of 1# per week. 2. Promote BGlu management with HbA1C <5.7% 3. Promote lipid panel WNL. 4. Promote regular physical activity. Not available 12/29/2021 11:18:47 Patient Instructions Encounter Date Encounter Id Patient Instructions Last Modified By Organization Details Last Modified Time 12/06/2021 [id number] 2 month f/u or sooner if needed [...] Not available 12/06/2021 10:28:42 Reason for Referral Bacteriologist Dairy/dietitian Refer ral for Prediabetes Referring Physician: Disha Callejas [facility], Encounter Date: 08/02/2021 Protection Mgr Referral for Hematemesis Referring Physician: Disha Callejas [facility], Encounter Date: 10/26/2021 Results Created [...] Consi stent with Diabe ras Not Available [facility] Laboratory Department [address] [place], [address] 10/26/2021 16:50:52 10/26/1910/26/2021 COMPR EHENS MACIE MET. PANEL sodium 136 mmol/ L 136-14 5 normal Not Available [facility] Department [address] [place], [address] 10/26/2021 17:17:12 10/26/1910/26/2021 COMPR EHENS MACIE MET. PANEL potassium 4.0 mmol/ L 3.5-5. 1 normal Not Available [facility] Department [address] [place], [address] 10/26/2021 17:17:12 10/26/19 22 10/26/2021 COMPR EHENS MACIE MET. PANEL chloride 100 mmol/ L 98-107 normal Not Available [facility] Department [address] [place], [address] 10/26/2021 17:17:12 10/26/19 22 10/26/2021 COMPR EHENS MACIE MET. PANEL carbon dioxide 25.3 mmol/ L 22-29 normal Not Available [facility] Department [address] [place] [address], [address] 10/26/2021 17:17:12 10/26/19 22 10/26/2021 COMPR EHENS MACIE MET. PANEL anion gap 15 mmol/ L 10-20 normal Not Available [facility] Department [address] [place] [address], [address] 10/26/2021 17:17:12 10/26/19 22 10/26/2021 COMPR EHENS MACIE MET. PANEL blood urea nitrogen 16 mg/dL 6-20 normal Not Available [facility] Laboratory Department [address] [place], [address] 10/26/2021 17:17:12 10/26/19 22 10/26/2021 COMPR EHENS MACIE MET. PANEL creatinine 0.79 mg/dL 0.70-1 .2 normal Not Available [facility] Department [address] [place] [address], [address] 10/26/2021 17:17:12 10/26/19 22 10/26/2021 COMPR EHENS [...] under the age of 18 Not Available [facility] Department [address] [place], [address] 10/26/2021 17:17:12 10/26/19 22 10/26/2021 COMPR EHENS MACIE MET. PANEL glucose 116 mg/dL 70-106 high Not Available [facility] Department [address] [place], [address] 10/26/2021 17:17:12 10/26/19 22 10/26/2021 COMPR EHENS MACIE MET. PANEL calcium 9.4 mg/dL 8.6-10 .3 normal Not Available [facility] Department [address] [place], [address] 10/26/2021 17:17:12 10/26/19 22 10/26/2021 COMPR EHENS MACIE MET. PANEL bilirubin total 0.4 mg/dL 0.2-1. 2 normal Not Available [facility] Department [address] [place], [address] 10/26/2021 17:17:12 10/26/19 22 10/26/2021 COMPR EHENS MACIE MET. PANEL aspartate amino transferase 23 U/L 5-40 normal Not Available [facility] Laboratory Department [address] [place], [address] 10/26/2021 17:17:12 10/26/19 22 10/26/2021 COMPR EHENS MACIE MET. PANEL alanine aminotransfe rase 27 U/L 5-41 normal Not Available [facility] Laboratory Department [address] [place], [address] 10/26/2021 17:17:12 10/26/19 22 10/26/2021 COMPR EHENS MACIE MET. PANEL total protein 7.1 g/dL 6.4-8. 3 normal Not Available [facility] Department [address] [place], [address] 10/26/2021 17:17:12 10/26/19 22 10/26/2021 COMPR EHENS MACIE MET. PANEL albumin level 4.4 g/dL 3.5-5. 2 normal Not Available [facility] Department [address] [place], [address] 10/26/2021 17:17:12 10/26/19 22 10/26/2021 COMPR EHENS MACIE MET. PANEL globulin 2.7 gm/dL 2.0-3. 5 normal Not Available [facility] Department [address] [place], [address] 10/26/2021 17:17:12 10/26/19 22 10/26/2021 COMPR EHENS MACIE MET. PANEL albumin globulin ratio 1.6 % 1.1-2. 5 normal Not Available [facility] Department [address] [place], [address] 10/26/2021 17:17:12 10/26/19 22 10/26/2021 COMPR EHENS MACIE MET. PANEL alkaline phosphatase 60 U/L 40-129 normal Not Available [facility] Laboratory Department [address] [place], [address] 10/26/2021 17:17:12 10/26/19 22 10/26/2021 LIPID PANEL WITH REFLE X triglyceride s w/ reflex LDL 208 mg/dL 30-150 high Refer ence Range s: <150 mg/dl Faby l 150-1 99 mg/dl Borde rline High 200-4 99 mg/dl High >500 mg/dl Very High Not Available [facility] Department [address] [place], [address] 10/26/2021 17:17:13 10/26/19 22 10/26/2021 LIPID PANEL WITH REFLE X cholesterol 148 mg/dL 100-20 0 normal Not Available [facility] Department [address] [place], [address] 10/26/2021 17:17:13 10/26/19 22 10/26/2021 LIPID PANEL [...] mg/dL Very high >190 mg/dL Not Available [facility] Department [address] [place], [address] 10/26/2021 17:17:13 10/26/19 22 10/26/2021 LIPID PANEL WITH REFLE X HDL cholesterol 37.9 mg/dL 40-60 low Major risk facto r for CHD: <40 mg/dL Negat macie risk facto r for CHD: >=60 mg/dL Not Available [facility] Department [address] [place], [address] 10/26/2021 17:17:13 10/26/19 22 10/26/2021 LIPID PANEL WITH REFLE X chol HDL ratio 3.91 Risk CHOL/ HDL CHOL/ HDL Ratio Male Femal e 1/2 AVERA GE 3.43 3.27 AVERA GE 4.97 4.44 2 X AVERA GE 9.55 7.05 3 X AVERA GE 23.39 11.04 Not Available [facility] Department [address] [place], [address] 10/26/2021 17:17:13 12/06/1912/05/2021 URINE CULTU RE results [...] ----- -- PATIE NT: Nancy Wilcox ACCT: [id number] LOC: HE.DO Sahu U: [id number] AGE/S X: 51/M ROOM: RE12/[address]: Aurelia carver : 05/27 BED: DIS: STATU S: DEP CLI TLOC: ----- ----- ----- ----- ----- ----- ----- ----- ----- ----- ----- ----- ----- ----- ----- ----- ----- ----- -- SPEC #: [id number] LUCRECIA: 12/05-U NK STATU S: COMP REQ #: [id number] RECD: 12/05- [address]: Aurelia [...] -- END OF REPOR T Not Available [facility] Department [address] [facility], [place], [address] 12/07/2021 10:17:56 12/06/19 22 12/05/2021 urina lysis , dipst ick SPECIFIC GRAVITY 1.010 Not Available [facility] ([facility]) [address] [place], [address], 12/05/2021 08:06:56 12/06/19 22 12/05/2021 urina lysis , dipst ick PH 7.0 Not Available [facility] ([facility]) [address] [place], [address], 12/05/2021 08:06:56 12/06/19 22 12/05/2021 urina lysis , dipst ick LEUKOCYTES Neg Not Available [facility] ([facility]) [address] [place], [address], 12/05/2021 08:06:56 12/06/19 22 12/05/2021 urina lysis , dipst ick NITRITE Neg Not Available [facility] ([facility]) [address] [place], [address], 12/05/2021 08:06:56 12/06/19 22 12/05/2021 urina lysis , dipst ick PROTEIN Neg Not Available [facility] ([facility]) [address] [place], [address], 12/05/2021 08:06:56 12/06/19 22 12/05/2021 urina lysis , dipst ick GLUCOSE Neg Not Available [facility] ([facility]) [address] [place], [address], 12/05/2021 08:06:56 12/06/19 22 12/05/2021 urina lysis , dipst ick KETONE Neg Not Available [facility] ([facility]) [address], [place], [address], 12/05/2021 08:06:56 12/06/19 22 12/05/2021 urina lysis , dipst ick UROBILINOGEN Normal Not Available [facility] ([facility]) [address] [place], [address], 12/05/2021 08:06:56 12/06/19 22 12/05/2021 urina lysis , dipst ick BILIRUBIN Neg Not Available [facility] ([facility]) [address] [place], [address], 12/05/2021 08:06:56 12/06/19 22 12/05/2021 urina lysis , dipst ick BLOOD Neg Not Available [facility] ([facility]) [address] [place], [address], 12/05/2021 08:06:56 12/07/19 22 12/06/2021 , [facility] [address] [facility] [place] [address] Ultras ound Report Signed Patien t: Sarabjit Castelan MR#: [id number] : [id number] Acct:H [id number] Age/Se x: 51 / M ADM Date: Loc: [facility] RA Attend ing Dr: Disha lilly MD Orderi ng Physic kei: Disha llily Date of Servic e: Proced ure(s) : US renal BI Access ion Number (s): [id number] H cc: Disha lilly EXAM: US renal [...] Transc riptio nist: [email or web address] [facility] [address] [place] [address], [address], 12/08/2021 08:15:53 Result Notes None recorded. Problems Name Problem SNOMED Code Status Onset Date Resolution Date Notes Provider Name and Address Organization Details Recorded Time Benign essential hypertensi on 6886206 Active 2019 Not Available [facility] 0 23:48:14 Hematemesi s 8050275 Active 2019 Carlton Hamilton MD [address] [place] [address], [address] , [facility] 0 17:09:26 History of SARS-CoV-2 [id number] 73606 Active 2020 Cahterine Ramirez LPN null, [facility] 2 11:01:47 COVID-19 606633059 Active 2020 Disha Callejas MD [address] [facility] [place], [address] , [facility] 15:39:26 Atrial fibrillati on 41688077 Active 2020 Disha Callejas MD [address] [facility] [place], [address] , [facility] 15:46:00 Glaucoma 42978965 Active 2020 Disha Callejas MD [address] [facility] [place], [address] , [facility] 15:46:06 Prediabete s 796859066 Active 2020 Disha Callejas MD [address] [place], [place] [address], [address] , [facility] 15:46:07 Nodule of lung 467941972 Active 2020 Disha Callejas MD [address] [facility] [place], [address] , [facility] 15:46:15 History of myocardial infarction 311744979 Active 2020 Disha Callejas MD [address] [facility] [place], [address] , [facility] 2 09:04:19 Left ventricula r hypertroph y 01497857 Active 2020 Disha Callejas MD [address] [facility] [place], [address] , [facility] 15:46:39 Erectile dysfunctio n 869170808 Active 2020 Disha Callejas MD [address] [facility], [address] , [facility] 15:46:55 Myocardial infarction 55674164 Active 2021 Leora Castaneda RN, BSN [facility] 08:51:03 Problem Notes None recorded. Procedures Surgical History Date Name Laterality Status Provider Name and Address Organization Details Recorded Time 12/07/19 22 Nutrition completed Monica Ferrara, MS, RDN, LDN [address] [place], [address], [facility] 12/29/2021 11:49:46 10/26/19 22 PHQ-9 Patient Health Questionnaire completed Disha Callejas MD [address] [place], [address], [facility] 10/26/2021 11:40:38 06/16/20 20 PHQ-9 Patient Health Questionnaire completed Disha Callejas MD [address] [place] [address], [address], [facility] 06/16/2020 09:15:13 10/07/19 20 colonoscopy completed Disha Callejas MD [address] [place], [address], [facility] 06/16/2020 08:45:24 partial nephrectomy completed Disha Callejas MD [address] [place] [address], [address], [facility] 04/07/2020 09:27:15 Imaging Results None recorded. Procedure [...] Last Updated DateTime 187.96 cm 34 kg/m2 972080. 98 g 95 % 95 % 71 /min 128/100 mm[Hg] 130/102 mm[Hg] Catherine Ramirez LPN [facility] 11:05:16 Date Recorded Body height Body mass index (BMI) Body weight Heart rate Systolic And Diastolic Provider Name and Address Organization Details Last Updated DateTime 12/05/2021 187.96 cm 33.5 kg/m2 216103.6 1 g 64 /min 124/84 mm[Hg] Yandy Irizarry CMA [facility] 12/05/2021 07:47:48 Date Recorded Body height Body mass index (BMI) Body weight Provider Name and Address Organization Details Last Updated DateTime 12/06/2021 187.96 cm 33.4 kg/m2 796017.02 g Monica Ferrara, MS, RDN, LDN [address] [place], [address], [facility] 12/06/2021 09:26:01 Date Recorded Body height Body mass index (BMI) Body weight Heart rate Oxygen saturation Oxygen saturation in Arterial blood by Pulse oximetry Systolic And Diastolic Provider Name and Address Organization Details Last Updated DateTime 2 187.96 cm 33.7 kg/m2 493508 g 64 /min 98 % 98 % 123/82 mm[Hg] TAYLOR Escalera [facility] 2 12:22:10 Date Recorded Systolic And Diastolic Provider Name and Address Organization Details Last Updated DateTime 08/02/2021 132/84 mm[Hg] Disha Callejas MD [address] [place], [address], [facility] 08/02/2021 15:47:45 Date Recorded Body height Body mass index (BMI) Body weight Heart rate Oxygen saturation Oxygen saturation in Arterial blood by Pulse oximetry Systolic And Diastolic Provider Name and Address Organization Details Last Updated DateTime 187.96 cm 32.6 kg/m2 973255. 46 g 67 /min 97 % 97 % 138/92 mm[Hg] Ken Weldon MA [facility] 15:15:44 Social History Question Answer Notes LastModified by Organizat ion Details LastModified Time Tobacco Smoking Status Never Smoker Disha Callejas MD [address] [place], [address], [facility] 04/07/2020 09:18:54 How Much Tobacco Do You Chew? None Information not available 04/07/2020 Which Illicit Or Recreational Drugs Have You Used? Denies Information not available 04/07/2020 Hepatitis C Screen 06/16/2020 Nonreactive Information not available 06/17/2020 Tobacco Use (smoking, Smokeless Tobacco) No Information not available 04/07/2020 Date Of Tobacco Screen 08/01/2021 [email or web address] Information not available 08/01/2021 Members Of Household 1 Information not available 04/07/2020 Marital Status Informatio n not available 04/07/2020 What Was The Date Of Your Most Recent Tobacco Screening? 10/26/2021 [email or web address] Information not available 10/26/2021 How Many Children [...] zoster recombinant 0 completed Catherine Ramirez LPN [facility] 08/01/2021 15:38:02 COVID-19, mRNA, LNP-S, PF, 30 mcg/0.3 mL dose 1 completed Disha Callejas MD [address] [place] [address] [place], [address], [facility] 10/26/2021 11:31:11 COVID-19, mRNA, LNP-S, PF, 30 mcg/0.3 mL dose 1 completed Disha Callejas MD [address] [place] [address] [place], [address], [facility] 10/26/2021 11:31:11 Influenza, split virus, quadrivalent, PF 8 completed Disha Callejas MD [address] [place] [address] [place], [address], [facility] 10/26/2021 11:31:11 Influenza, split virus, trivalent, preservative 4 completed Disha Callejas MD [address] [place] [address] [place], [address], [facility] 10/26/2021 11:31:11 Influenza, split virus, trivalent, preservative 7 completed Disha Callejas MD [address] [place] [address], [place], [address], [facility] 10/26/2021 11:31:11 Influenza, split virus, quadrivalent, PF 1 completed Disha Callejas MD [address] [place] [address] [place], [address], [facility] 10/26/2021 11:31:11 Influenza, split virus, quadrivalent, PF 0 completed Disha Callejas MD [address] [place] [address] [place], [address], [facility] 10/26/2021 11:31:11 Influenza, split virus, trivalent, preservative 1 completed Disha Callejas MD [address] [place] [address] [place], [address], [facility] 10/26/2021 11:31:11 pneumococcal polysaccharide PPV23 1 completed Disha Callejas MD [address] [place] [address] [place], [address], [facility] 10/26/2021 11:31:11 Influenza, split virus, trivalent, preservative 5 completed Disha Callejas MD [address] [place] [address] [place], [address], [facility] 10/26/2021 11:31:11 Influenza, split virus, trivalent, preservative 2 completed Disha Callejas MD [address] [place] [address] [place], [address], [facility] 10/26/2021 11:31:11 Influenza, split virus, trivalent, preservative 6 completed Disha Callejas MD [address] [place] [address] [place], [address], [facility] 10/26/2021 11:31:11 Influenza, split virus, trivalent, preservative 3 completed Disha Callejas MD [address] [place], [address], [facility] 10/26/2021 11:31:11 Td (adult), 2 Lf tetanus toxoid, preservative free, adsorbed 1 completed Disha Callejas MD [address] [place], [address], [facility] 10/26/2021 11:31:11 Tdap 0 completed Yandy Irizarry CMA [facility], [facility] 06/16/2020 09:19:12 Past Encounters Encounter ID Performer Location Encounter Start Date Encounter Closed Date Diagnosis/Indication Diagnosis SNOMED-CT Code Diagnosis ICD10 Code Diagnosis IMO Codes Diagnosis Note [id number] Disha Callejas MD [address] [address] 04/07/2020 09:07:08 04/07/2020 09:33:17 Benign essential hypertension 0279695 I10 Patient has a history of hypertensi on for which he has been taking amlodipine 5mg and lisinopril 40mg daily. His blood pressure is currently well controlled . He will continue current medication s which were prescribed today. He will follow-up in 2 months for a physical. Glaucoma 00809555 H40.9 Patient has a history of glaucoma for which he uses eye drops. He has no refills at this time, but has an appointmen t scheduled with an eye doctor next month. Gastroesop hageal reflux disease 684323706 K21.9 Patient has a history of GERD for which he has been taking omeprazole 20mg daily. He notes that while he was in penitentiary, he got a colonoscop y and was supposed to get an endoscopy as he intermitte ntly has been spitting up blood. GI referral placed and omeprazole refilled. History of primary malignant neoplasm of kidney 035039887 Z85.528 Patient has a history of a renal tumor which was removed in 2013. He has not had significan t follow-up since then. Recommende d nephrology evaluation . Referral placed. [id number] Disha Callejas MD [address] [address] 06/16/2020 08:29:53 06/16/2020 09:11:41 Adult health examination 610628635 Z00.00 Patient should discuss medical decisions with Health Care Proxy. Recommende d screenings included colonoscop y screening age 50, earlier based on family history/ri sk factors; one time screen for hepatitis C if born between 0057-8045 or has risk factors. Reviewed vaccines and current recommenda tions. Basic health topics include aerobic exercise, importance of healthy/ba lanced diet and minimizing caffeine and alcohol. Administra tion of diphtheria, pertussis, and tetanus vaccine 744127048 Z23 Patient due for Tdap vaccinatio n. Administer ed today. Screening for malignant neoplasm of colon 740152517 Z12.11 Patient reports a colonoscop y in September of 2019 while he was in penitentiary. No records available, but states he has a history of polyps. Will plan for follow-up colonoscop y in 3-5 years. Varicella vaccination 68 584307 Z23 Patient due for shingles vaccinatio n. Prescribed to his pharmacy. Benign ess ential hypertension 9367095 I10 Patient has a history of hypertensi on for which he has been taking amlodipine 5mg and lisinopril 40mg daily. His blood pressure is currently well controlled . He will continue current medication s which were prescribed today. He will follow-up in 2 months for a physical. At [facility] risk of sexually transmitted infection 160290936 Z20.2 Patient was recently in penitentiary and would like to be tested for STDs. Blood and urine obtained for testing today. Hyperlipid emia screening 581003291 Z13.220 Patient due for hyperlipid emia screening. Lipid panel obtained today. Large prostate 266889983 N40.0 Patient has a slightly enlarged prostate on examinatio n. Will check PSA today. Impotence of organic origin 393225570 N52.9 Patient has been struggling with getting and maintainin g an erection. Discussed risks and benefits of medication . Prescribed sildenafil 50mg daily as needed. Patient will follow-up if not improving. Hemorrhoids 45939655 K64 .9 Patient has internal hemorrhoid s which are causing him pressure and discomfort . Prescribed hydrocorti sone cream to use topically and help his symptoms. [id number] Carlton Hamilton MD [facility] [address] [place] [address] [address] [place] [address] 07/18/2020 16:45:30 07/18/2020 17:23:52 Hematemesis 7154338 K92.0 A few episodes of bringing up blood (he thinks from the stomach) in Aug and wishes an EGD. No melena. No other red flag ROS. On PRN omeprazole for occasional upper GI ROS. S/p distant treated H.Pylori without check of eradicatio n. Family his tory of cancer of colon 153491926 Z80.0 Father History of polyp of colon 626676794 Z86.010 On prior colons [id number] Donna Segal MD [facility] [address] [place] [address] 07/31/2020 14:46:41 07/31/2020 14:47:09 Viral screening 830172220 Z11.59 [id number] Vlad Escalera NP [address] [address] 09/19/2020 12:23:54 09/19/2020 12:48:00 Onychomycosis due to dermatophyte 335017757 B35.1 Patient educated about onychomyco sis and that the process to treat this can take some time. Patient will start on medication as directed and is aware of the side effects. Patient will follow up if no improvemen t after 1 month. If no improvemen t then try oral medication . Patient can call with any concerns. History of myocardial infarction [id number] I25.2 Patient stated he had a heart attack back in 2016 and had a pain a couple months ago which scared him. Patient hasn't had pain since. Patient would like a referral to cardiology . [id number] Donna Segal MD [facility] [address] [place] [phone] 10/07/2020 16:21:41 10/07/2020 16:22:35 Viral screening [id number] Z11.59 [id number] Disha Callejas MD [facility] use [address] [phone] 08/02/2021 15:02:27 08/02/2021 16:13:54 COVID-19 [id number] U07.1 Estefania was hospitaliz ed from 07/14/21-1 at [facility] for COVID-19 infection and pneumonia. He was treated with remdesivir and ceftriazon e/azithrom ycin. He is feeling much better, but continues to have a slight cough and some fatigue. Encouraged patient to work on rebuilding his stamina and use honey or cough drops to help with his cough. Patient will follow-up as needed. Prediabetes [id number] R7 3.03 Patient has a history of prediabete s. He would like to see a nutritioni st, referral placed. Benign ess ential hypertension [id number] I10 Patient has a history of hypertensi on for which he has been taking chlorthali done 12.5mg daily and lisinopril 40mg daily. His blood pressure is currently well controlled . He will continue current medication s which were prescribed today. He will follow-up in 2 months or earlier as needed. [id number] Disha Callejas MD [facility] [address] [place] [phone] 10/26/2021 10:51:54 10/26/2021 11:39:09 Adult health examination [id number] Z00.01 Patient should discuss medical decisions with Health Care Proxy. Recommende d screenings included colonoscop y screening age 50, earlier based on family history/ri sk factors; one time screen for hepatitis C if born between 0240-0839 or has risk factors. Reviewed vaccines and current recommenda tions. Basic health topics include aerobic exercise, importance of healthy/ba lanced diet and minimizing caffeine and alcohol. Administra tion of diphtheria, pertussis, and tetanus vaccine [id number] Z23 Patient is up to date, received TDAP in 2020. Screening for malignant neoplasm of colon [id number] Z12.11 Patient reports a colonoscop y in September of 2019 while he [facility]. No records available, but states he has a history of polyps. Will plan for follow-up colonoscop y in 3-5 years. Viral screening [id number] Z11.59 Non-reacti ve screening in 2020. Varicella vaccination 68 772705 Z23 Patient due for shingles vaccinatio n. Prescribed to his pharmacy. Benign ess ential hypertension [id number] I10 Patient has a history of hypertensi [...] controlled with emtoprolol succinate 50mg daily. Prediabetes [id number] R7 3.03 Patient has a history of prediabete s. Will check blood work today. Nodule of lung [id number] R91.1 Patient was found to have a mass in his right lung. He is seeing pulmonolog y at [facility] and has had follow-up scans which demonstrat ed no growth of the area. History of partial nephrectomy [id number] Z90.5 Patient has a history of a partial nephrectom y for a mass on the kidney years ago. He is now having right flank pain which he states as the same as prior to his partial nephrectom y. Will obtain an ultrasound to evaluate the remaining kidney. Hematemesis [id number] K92. 0 Patient has a history of coughing up blood and hematemesi s (although has not vomited recently). He has had evaluation s of his lungs and is interested in an endoscopy to check his esophagus. Referral placed to GI. [id number] Caryn Jauregui NP [address] [phone] 12/05/2021 07:39:05 12/05/2021 08:06:25 Left lower quadrant pain [id number] R10.32 He states he has been having [...] with no improvemen t in symptoms. Diverticulitis [id number] K57.92 Patient noted with left lower quadrant [...] or with no improvemen t in symptoms. [id number] Monica Ferrara, , RDN, LDN [facility] [address] [place] [address] [address] [place] [address] 12/06/2021 08:04:43 12/06/2021 10:40:31 Prediabetes [id number] R73.03 Summary of Visit:Gi saavedra is a 51 year old primarily Indonesian speaking male referred for prediabete s. Jyoti [...] food groups/lis ts- What Can I Eat? Indonesian handout- Healthy Snack Indonesian handout- Healthy Plate Indonesian handout Educator Assessed Learning Barriers: language barrier [id number] Vlad Escalera NP [facility] [address] [place] [phone] 01/04/2022 12:15:26 01/04/2022 12:39:32 Arthritis of left knee joint [id number] M13.862 Suspected arthritis along with meniscus wear [...] Girard Member ID Guarantor Name 08/02/2021 1 [place]: [id number] [id number] Jai Javier 10/31/2022 1 [facility] - HEALTH NET PLAN (MEDICAID HMO) [id number] Jai Javier [id number] Jai Javier 08/02/2021 2 [place]: [facility] Jai Jiet [id number] Jai Jiet Notes Date Note Type Note Provider Name and Address Organization Details Recorded Time 08/02/2021 text/html Patient is a 51 year old male who presents today for a hospital follow-up. He was hospitalized from 07/14/21-07/18/21 for COVID. He was hospitalized at [facility]. He got antibiotics (ceftriaxone and azithromycin for pneumonia) and remdesivir while he was hospitalized. He is feeling much better since he got out of the hospital. Disha Callejas MD [address] [place] [address], [phone], [facility] 08/02/2021 15:50:26 10/26/2021 text/html Patient is a [...] prior to having surgery. Disha Callejas MD [address] [place] [address], [phone], [facility] 10/26/2021 11:40:45 12/05/2021 text/html Abdominal PainReported by [...] 2019 that showed diverticulosis. 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 Social Support:Primary Support Person: self, GFLiving Arrangements: lives with GF Previous Diet Education/Training:Pr evious Visit with Dietitian: none Meals and Dining:Meals per day:Snacks per day:Skips meals:Recent dietary changes: eating less latelySpecial diets in the past:Food Allergy or intolerances: none reportedPrimary Threader: usually ptPrimary Food Color Depositing Machine Tender:bothDining Out frequency: 1x per weekAlcohol Intake: noneSupplements: Diet recall:- Breakfast: sandwich w/ 1 slice ham and 1 slice cheese, 2 eggs, on potato bread- Lunch: chicken with icelandic fries OR empanadas OR sometimes mixed veggies [...] me Monica Ferrara, MS, RDN, LDN [address] [place], [phone], [facility] 12/29/2021 12:04:04 01/04/2022 text/html Patient is [...] numbness, tingling or swelling. Disha Callejas MD [address] [place] [address], [phone], [facility] 01/04/2022 16:38:41
== END 2025-08-11 08:17 | disposition home or self-care (01) ==
LOC: HO.XRAY 08:16
PROVIDERS: PCP Internal Medicine; Visit Provider Internal Medicine
DX: R13.14 Dysphagia, pharyngoesophageal phase (principal)
CPT/HCPCS: 74221

== ENCOUNTER → 2025-08-11 08:18 | Outpatient (BNV) | payer MEDICAID, SELFPAY | PROVIDERS: PCP Internal Medicine; Visit Provider Radiology Diagnostic Radiology | DX: R79.89 Other specified abnormal findings of blood chemistry (principal); R09.1 Pleurisy; R07.9 Chest pain, unspecified | CPT/HCPCS: 74221 ==

== ENCOUNTER 2025-08-13 00:36 | Observation (INO) | payer MEDICAID, SELFPAY ==
--- NOTE | 2025-08-13 | ECG_ITS ---
Test Reason : cp Blood Pressure : */* mmHG Vent. Rate : 69 BPM Atrial Rate : 69 BPM P-R Int : 184 ms QRS Dur : 102 ms QT Int : 398 ms P-R-T Axes : 42 -25 26 degrees QTcB Int : 426 ms Normal sinus rhythm Nonspecific T wave abnormality Abnormal ECG When compared with ECG of 08-Mar-2025 11:28, Vent. rate has decreased by 45 bpm Nonspecific T wave abnormality, improved in Lateral leads Referred By: Generic ED Physician Electronically Signed By: ARTIE BOYLE
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
--- NOTE | ~2025-08-13 | CT_ITS ---
CLINICAL HISTORY: Chest Pain; Pleurisy; Recent Travel; Elevated Trop CT angiography chest with contrast. 3D Postprocessing. Comparison: CR - XR CHEST 2V - 08/13/25 00:[address]/REG/SR - ABDOMEN ABD_PELVIS_IV_CONTRAST (ADULT) - 03/18/25 21:[address]/SR - CT CHEST WO IV CON - 11/13/24 07:21 EST Findings: The heart size is normal. RV/LV ratio is normal. The thoracic aorta is normal caliber. No pulmonary artery filling defects. The visualized thyroid and mediastinum are unremarkable. Stable metallic density with streak artifact in the right neck. Chronic posttraumatic deformity of the ribs in the right mid chest associated with pleural thickening and calcifications. No focal consolidation, pleural effusion, or pneumothorax. Dense intraluminal contrast within the gastrointestinal tract results in significant streak artifact throughout the abdomen, limiting evaluation. The visualized abdominal structures are grossly unremarkable. Bilateral gynecomastia. Chronic right rib deformities. No acute fractures. IMPRESSION: No pulmonary emboli Chronic findings, as above This document has been electronically signed by: Modesto Win MD on 08/13/2025 04:54:36
[2025-08-13 00:45] VITALS: BP 132/85; PULSE 74; RESP 18; TEMP 36.9; O2SAT 95; BMI 37.7
[2025-08-13 01:36] LABS: Hematocrit 43.6 % (42.0-52.0); Hemoglobin 14.9 g/dl (14.0-18.0); Imm Gran Abs Auto 0.00 X10*3/uL (0.00-0.03); Imm Gran Pct Auto 0.0 % (0.0-0.4); Lymphocytes Absolute Auto 1.9 X10*3/uL (1.2-4.9); MANUAL DIFF FLAG NO; Mean Corpuscular HGB Conc 34.2 g/dl (31.0-36.0); Mean Corpuscular Hemoglobin 28.8 pg (27.0-33.0); Mean Corpuscular Volume 84.3 fL (80.0-98.0); NRBC Abs Auto 0.000 X10*3/uL (0.0-0.012); NRBC Pct Auto 0.0 /100WBC (0.0-0.2); Platelet Count 250 X10*3/uL (160-400); Red Blood Count 5.17 X10*6/uL (4.60-5.80); White Blood Count 5.6 X10*3/uL (4.8-10.8)
--- OUTSIDE RECORDS SUMMARY | 2025-08-13 01:42 | XMS_ITS | Encounter Summary ---
Author Organization [employer] Address 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 EFFECTIVE SINCE 06/28/2023 documented in this encounter Plan of Treatment Upcoming Encounters Date Type Department Care Team (Late st Contact Info) Description 09/28/2025 9:15 AM EST Office Visit [facility] [address] [place] [phone] Kathy Hair MD [address] [place] [address] documented as of this encounter Visit Diagnoses Not on filedocumented in this encounter Care Teams Air Twister Winder Relationship Specialty Start Date End Date Kathy Hair MD [address] [place] [address] PCP - General Internal Medicine 09/15/24 Maikel TINOCOA 04/11/25 documented as of this encounter
--- OUTSIDE RECORDS SUMMARY | 2025-08-13 01:42 | XMS_ITS | Clinical Summary ---
Author Organization [facility] Address [address] [place] [address] Care Team Providers Care Warehouse Packer Name Role Phone Disha Callejas MD Primary [...] 06/16/2020, 09/30/2010, 09/30/2010 Procedures * Due to [place] Grid20/20 law, this organization might not be sharing negative HIV tests. Procedure Name Priority Date/Time Associated Diagnosis Comments COMPREHENSIVE METABOLIC PANEL Routine 07/19/2021 2:56 AM EDT from Last 3 Months or Most Recently Relevant to Health Maintenance Results * Due to [place] Grid20/20 law, this organization might not be sharing negative HIV tests. * (ABNORMAL) Comprehensive Metabolic Panel (07/19/2021 2:56 AM EDT) NA 136 135 - 145 mmol/L 07/19/2021 3:39 AM EDT [facility] K 3.9 3.5 - 5.3 mmol/L 07/19/2021 3:39 AM EDT [facility] Cl 103 97 - 110 mmol/L 07/19/2021 3:39 AM EDT [facility] CO2 25 24 - 32 mmol/L 07/19/2021 3:39 AM EDT [facility] Anion Gap 8 5 - 15 07/19/2021 3:39 AM EDT [facility] Glucose 138(H) 70 - 99 mg/dL 07/19/2021 3:39 AM EDT [facility] Creatinine 0.99 0.60 - 1.30 mg/dL 07/19/2021 3:39 AM EDT [facility] eGFR Non- 88(L) >=90 mL/min/BS A 07/19/2021 3:39 AM EDT [facility] eGFR >90 >=90 mL/min/BS A 07/19/2021 3:39 AM EDT [facility] Comment: Units = mL/min/1.73 m2 Glomerular Filtration Rate (GFR) is estimated based on the CKD-EPI Creatinine Equation (2009). Stage Description GFR 1 Normal >=90 mL/min/BSA 2 Mildly decreased GFR 60-89 mL/min/BSA 3 Moderately decreased GFR 30-59 mL/min/BSA 4 Severely decreased GFR 15-29 mL/min/BSA 5 Kidney Failure <15 mL/min/BSA Calcium 8.7 8.7 - 10.7 mg/dL 07/19/2021 3:39 AM EDT [facility] Total Protein 7.3 6.0 - 8.0 g/dL 07/19/2021 3:39 AM EDT [facility] Albumin 3.5 3.5 - 4.8 g/dL 07/19/2021 3:39 AM EDT [facility] Bilirubin, Total 0.2(L) 0.3 - 1.2 mg/dL 07/19/2021 3:39 AM EDT [facility] Alkaline Phosphatase 46 30 - 115 U/L 07/19/2021 3:39 AM EDT [facility] AST 13 10 - 40 U/L 07/19/2021 3:39 AM EDT [facility] ALT 16 10 - 40 U/L 07/19/2021 3:39 AM EDT [facility] BUN 29(H) 7 - 23 mg/dL 07/19/2021 3:39 AM EDT [facility] Blood Structure of peripheral vein / Unknown Venipuncture / Unknown 07/19/2021 2:56 AM EDT 07/19/2021 3:09 AM EDT us Marietta Wilhelm NP LAB BLOOD ORDERABLES Final Result [facility] [address] [place] [address], from Last 3 Months or Most Recently Relevant to Health Maintenance Insurance [facility] MEDICAID Advance Directives * Full Code (Latest Code Status on File) Date Activated Date Inactivated Comments 07/15/2021 3:20 AM 07/19/2021 5:11 PM Care Teams Warehouse Packer Relationship Specialty Start Date End Date Disha Callejas MD PCP - General Family Medicine 04/27/20
--- OUTSIDE RECORDS SUMMARY | 2025-08-13 01:42 | XMS_ITS | Encounter Summary ---
Author Organization [employer] Address [address] [place] [address] Care Team Providers Care Investigation Division Lieutenant Name Role Phone Kathy Hair MD Primary Care Provide r Reason for Visit * Reason Comments Med Refill Encounter Details Date Type Department Care Team (Late st Contact Info) Description 07/15/2024 Refill [facility] [address] [place] [phone] Kenan Mays MD [address] [place] [address] Essential hypertension Social History Tobacco Use Types [...] Description 09/28/2025 9:15 AM EST Office Visit [facility] [address] [place] [phone] Kathy Hair MD [address] [place] [phone] documented as of this encounter Visit Diagnoses Diagnosis Essential hypertension Unspecified essential hypertension documented in this encounter Care Teams Investigation Division Lieutenant Relationship Specialty Start Date End Date Kathy Hair MD [address] [place] [phone] PCP - General Internal Medicine 09/15/24 Maikel RODRIGUEZ 04/11/25 documented as of this encounter
--- OUTSIDE RECORDS SUMMARY | 2025-08-13 01:42 | XMS_ITS | Encounter Summary ---
Author Organization [employer] Address [address] [facility] [address] [place] [address] Care Team Providers Care Harvest Manager Name Role Phone Kathy Hair MD Primary Care Provide r Reason for Visit * Reason Comments Med Refill Encounter Details Date Type Department Care Team (Late st Contact Info) Description 04/21/2024 Refill [facility] [address] [place] [address] [phone] Name, MD Wenceslao [address] [place] [phone] Essential hypertension Social History Tobacco Use Types [...] Description 09/28/2025 9:15 AM EST Office Visit [facility] [address] [place] [phone] Kathy Hair MD [address] [place] [address] [phone] documented as of this encounter Visit Diagnoses Diagnosis Essential hypertension Unspecified essential hypertension documented in this encounter Care Teams Harvest Manager Relationship Specialty Start Date End Date Kathy Hair MD [address] [place] [phone] PCP - General Internal Medicine 09/15/24 Maikel RODRIGUEZ 04/11/25 documented as of this encounter
--- OUTSIDE RECORDS SUMMARY | 2025-08-13 01:42 | XMS_ITS | Encounter Summary ---
Author Organization [employer] Address [address] [place] [address] Care Team Providers Care Manager Play Name Role Phone Kathy Hair MD Primary Care Provide r Reason for Visit * Reason Comments Med Refill Encounter Details Date Type Department Care Team (Late st Contact Info) Description 07/15/2024 Refill [facility] [address] [place] [phone] Kenan Mays MD [address] [place] [address] Essential hypertension Social History Tobacco Use Types [...] Description 09/28/2025 9:15 AM EST Office Visit [facility] [address] [place] [phone] Kathy Hair MD [address] [place] [phone] documented as of this encounter Visit Diagnoses Diagnosis Essential hypertension Unspecified essential hypertension documented in this encounter Care Teams Manager Play Relationship Specialty Start Date End Date Kathy Hair MD [address] [place] [phone] PCP - General Internal Medicine 09/15/24 Maikel RODRIGUEZ 04/11/25 documented as of this encounter
--- OUTSIDE RECORDS SUMMARY | 2025-08-13 01:42 | XMS_ITS | Encounter Summary ---
Author Organization [employer] Address [address] [place] [address] Care Team Providers Care Pipeline Dispatch Operator Name Role Phone Kathy Hair MD Primary Care Provide r Reason for Visit * Reason Comments Med Refill Encounter Details Date Type Department Care Team (Late Contact Info) Description 01/10/2024 Refill [facility] [address] [place] [address] Annelise Joseph FNP [address] [place] [address] Social History Tobacco Use Types Packs/Day Years [...] Description 09/28/2025 9:15 AM EST Office Visit [facility] [address] [place] [phone] Kathy Hair MD [address] [place] [phone] documented as of this encounter Visit Diagnoses Not on filedocumented in this encounter Care Teams Pipeline Dispatch Operator Relationship Specialty Start Date End Date Kathy Hair MD [address] [place] [phone] PCP - General Internal Medicine 09/15/24 Maikel RODRIGUZE 04/11/25 documented as of this encounter
--- OUTSIDE RECORDS SUMMARY | 2025-08-13 01:42 | XMS_ITS | Encounter Summary ---
Author Organization [employer] Address [address] [place] [address] Care Team Providers Care Consumer Studies Professor Name Role Phone Kathy Hair MD Primary Care Provide r Reason for Visit * Reason Comments Med Change Request Encounter Details Date Type Department Care Team ([facility] st Contact Info) Description 02/10/2025 Refill [facility] [address] [place] [address] Kenan Mays MD [address] [place] [address] Social History Tobacco Use Types Packs/Day Years [...] Description 09/28/2025 9:15 AM EST Office Visit [facility] [address] [place] [phone] Kathy Hair MD [address] [place] [phone] documented as of this encounter Visit Diagnoses Not on filedocumented in this encounter Additional Health Concerns Assessment Noted Time PHQ-9 Depression Total Score: 0 09/15/20 10:07 AM EST documented as of this encounter Care Teams Consumer Studies Professor Relationship Specialty Start Date End Date Kathy Hair MD [address] [place] [phone] PCP - General Internal Medicine 09[facility]24 [facility] documented as of this encounter
--- OUTSIDE RECORDS SUMMARY | 2025-08-13 01:42 | XMS_ITS | Data Portability ---
Author Organization [place] - [facility] Address [address] [place] [address] Care Team Providers Care Sand System Operator Name Role Phone DISHA CALLEJAS Primary Care Provider [phone] DISHA CALLEJAS Referring Provider Assessment No assessment recorded. Plan of Treatment Reminders Order Date Submit Date Provider Last Modified By Organization Details Last Modified Time Details Appointments None recorded. Lab urinalysis, dipstick [address] ([facility]), [address] [facility] Dylan, [place], [address], 08:13:50 culture, urine 2021 [facility], [address] [place] [address], [address], 10:17:56 HbA1c (hemoglobin A1c), blood 2021 022 [email or web address] [facility], [address] [place] [address], [address], 10:40:35 CMP, serum or plasma 2021 022 [facility], [address] [place] [address], [address], 17:17:13 lipid panel, serum 2021 [facility], [address] [place] [address], [address], 17:17:14 Referral gastroenter ologist referral [email or web address] [place] [address] - Gi, [address] [facility], [address], [place], [address], 2 08:26:45 nutritionis t/dietitian referral 2020 [email or web address] [place] [address] (Nutrition Services), [address] [place], [address], 2 15:42:35 Procedures None recorded. Surgeries None recorded. Imaging US, kidney - right kidney 2021 022 [facility] (Central Scheduling), [address] [place], [address], 08:54:00 Medication Orders diclofenac 1 % topical gel 2021 022 [facility]/Pharmacy #[id number], [address] [place], [place], [id number], 2 12:33:58 metronidazo le 500 mg tablet [address]/Pharmacy #[id number], [address] [place], [place], [id number], 2 13:50:46 Cipro 500 mg tablet [address]/Pharmacy #[id number], [address] [place], [place], [id number], 13:50:40 Patient Targets Encounter Date Encounter Id Patient Goals Patient Target Last Modified By Organization Details Last Modified Time 12/06/2021 [id number] Goals: 1. Promote weight loss of 1# per week. 2. Promote BGlu management with HbA1C <5.7% 3. Promote lipid panel WNL. 4. Promote regular physical activity. Not available 12/29/2021 11:18:47 Patient Instructions Encounter Date Encounter Id Patient Instructions Last Modified By Organization Details Last Modified Time 12/06/2021 [id number] 2 month f/u or sooner if needed [...] Not available 12/06/2021 10:28:42 Reason for Referral Form Press Operator/dietitian Refer ral for Prediabetes Referring Physician: Disha Callejas [facility], Encounter Date: 08/02/2021 Certified Physical Therapist Assistant Referral for Hematemesis Referring Physician: Disha Callejas [facility], Encounter Date: 10/26/2021 Results Created Date [...] Consi stent with Diabe ras Not Available [facility] Laboratory Department [address] [place], [address] 10/26/2021 16:50:52 10/26/1910/26/2021 COMPR EHENS MACIE MET. PANEL sodium 136 mmol/ L 136-14 5 normal Not Available [facility] Laboratory Department [address] [place], [address] 10/26/2021 17:17:12 10/26/1910/26/2021 COMPR EHENS MACIE MET. PANEL potassium 4.0 mmol/ L 3.5-5. 1 normal Not Available [facility] Laboratory Department [address] [place], [address] 10/26/2021 17:17:12 10/26/19 22 10/26/2021 COMPR EHENS MACIE MET. PANEL chloride 100 mmol/ L 98-107 normal Not Available [facility] Laboratory Department [address] [place], [address] 10/26/2021 17:17:12 10/26/19 22 10/26/2021 COMPR EHENS MACIE MET. PANEL carbon dioxide 25.3 mmol/ L 22-29 normal Not Available [facility] Laboratory Department [address] [place] [address], [address] 10/26/2021 17:17:12 10/26/19 22 10/26/2021 COMPR EHENS MACIE MET. PANEL anion gap 15 mmol/ L 10-20 normal Not Available [facility] Laboratory Department [address] [place] [address], [address] 10/26/2021 17:17:12 10/26/19 22 10/26/2021 COMPR EHENS MACIE MET. PANEL blood urea nitrogen 16 mg/dL 6-20 normal Not Available [facility] Laboratory Department [address] [place], [address] 10/26/2021 17:17:12 10/26/19 22 10/26/2021 COMPR EHENS MACIE MET. PANEL creatinine 0.79 mg/dL 0.70-1 .2 normal Not Available [facility] Laboratory Department [address] [place] [address], [address] 10/26/2021 17:17:12 10/26/19 22 10/26/2021 COMPR EHENS [...] under the age of 18 Not Available [facility] Laboratory Department [address] [place], [address] 10/26/2021 17:17:12 10/26/19 22 10/26/2021 COMPR EHENS MACIE MET. PANEL glucose 116 mg/dL 70-106 high Not Available [facility] Laboratory Department [address] [place], [address] 10/26/2021 17:17:12 10/26/19 22 10/26/2021 COMPR EHENS MACIE MET. PANEL calcium 9.4 mg/dL 8.6-10 .3 normal Not Available [facility] Laboratory Department [address] [place], [address] 10/26/2021 17:17:12 10/26/19 22 10/26/2021 COMPR EHENS MACIE MET. PANEL bilirubin total 0.4 mg/dL 0.2-1. 2 normal Not Available [facility] Laboratory Department [address] [place], [address] 10/26/2021 17:17:12 10/26/19 22 10/26/2021 COMPR EHENS MACIE MET. PANEL aspartate amino transferase 23 U/L 5-40 normal Not Available [facility] Laboratory Department [address] [place], [address] 10/26/2021 17:17:12 10/26/19 22 10/26/2021 COMPR EHENS MACIE MET. PANEL alanine aminotransfe rase 27 U/L 5-41 normal Not Available [facility] Laboratory Department [address] [place], [address] 10/26/2021 17:17:12 10/26/19 22 10/26/2021 COMPR EHENS MACIE MET. PANEL total protein 7.1 g/dL 6.4-8. 3 normal Not Available [facility] Laboratory Department [address] [place], [address] 10/26/2021 17:17:12 10/26/19 22 10/26/2021 COMPR EHENS MACIE MET. PANEL albumin level 4.4 g/dL 3.5-5. 2 normal Not Available [facility] Laboratory Department [address] [place], [address] 10/26/2021 17:17:12 10/26/19 22 10/26/2021 COMPR EHENS MACIE MET. PANEL globulin 2.7 gm/dL 2.0-3. 5 normal Not Available [facility] Laboratory Department [address] [place], [address] 10/26/2021 17:17:12 10/26/19 22 10/26/2021 COMPR EHENS MACIE MET. PANEL albumin globulin ratio 1.6 % 1.1-2. 5 normal Not Available [facility] Laboratory Department [address] [place], [address] 10/26/2021 17:17:12 10/26/19 22 10/26/2021 COMPR EHENS MACIE MET. PANEL alkaline phosphatase 60 U/L 40-129 normal Not Available [facility] Laboratory Department [address] [place], [address] 10/26/2021 17:17:12 10/26/19 22 10/26/2021 LIPID PANEL WITH REFLE X triglyceride s w/ reflex LDL 208 mg/dL 30-150 high Refer ence Range s: <150 mg/dl Faby l 150-1 99 mg/dl Borde rline High 200-4 99 mg/dl High >500 mg/dl Very High Not Available [facility] Laboratory Department [address] [place], [address] 10/26/2021 17:17:13 10/26/19 22 10/26/2021 LIPID PANEL WITH REFLE X cholesterol 148 mg/dL 100-20 0 normal Not Available [facility] Laboratory Department [address] [place], [address] 10/26/2021 17:17:13 10/26/19 22 10/26/2021 LIPID PANEL [...] mg/dL Very high >190 mg/dL Not Available [facility] Laboratory Department [address] [place], [address] 10/26/2021 17:17:13 10/26/19 22 10/26/2021 LIPID PANEL WITH REFLE X HDL cholesterol 37.9 mg/dL 40-60 low Major risk facto r for CHD: <40 mg/dL Negat macie risk facto r for CHD: >=60 mg/dL Not Available [facility] Laboratory Department [address] [place], [address] 10/26/2021 17:17:13 10/26/19 22 10/26/2021 LIPID PANEL WITH REFLE X chol HDL ratio 3.91 Risk CHOL/ HDL CHOL/ HDL Ratio Male Femal e 1/2 AVERA GE 3.43 3.27 AVERA GE 4.97 4.44 2 X AVERA GE 9.55 7.05 3 X AVERA GE 23.39 11.04 Not Available [facility] Laboratory Department [address] [place], [address] 10/26/2021 17:17:13 12/06/1912/05/2021 URINE CULTU RE results [...] ----- -- PATIE NT: Nancy Wilcox ACCT: [id number] LOC: HE.DO Sahu U: [id number] AGE/S X: 51/M ROOM: RE12/[address]: Aurelia carver : 05/27 BED: DIS: STATU S: DEP CLI TLOC: ----- ----- ----- ----- ----- ----- ----- ----- ----- ----- ----- ----- ----- ----- ----- ----- ----- ----- -- SPEC #: [id number] LUCRECIA: 12/05-U NK STATU S: COMP REQ #: [id number] RECD: 12/05- [address]: Aurelia Barber [facility] E: Caleb mullen ENTR: 12/05- 751 OTHR [...] -- END OF REPOR T Not Available [facility] Laboratory Department [address] [facility], [place], [address] 12/07/2021 10:17:56 12/06/19 22 12/05/2021 urina lysis , dipst ick SPECIFIC GRAVITY 1.010 Not Available [facility] ([facility]) [address] [place], [address], 12/05/2021 08:06:56 12/06/19 22 12/05/2021 urina lysis , dipst ick PH 7.0 Not Available [facility] ([facility]) [address] [place], [address], 12/05/2021 08:06:56 12/06/19 22 12/05/2021 urina lysis , dipst ick LEUKOCYTES Neg Not Available [facility] ([facility]) [address] [place], [address], 12/05/2021 08:06:56 12/06/19 22 12/05/2021 urina lysis , dipst ick NITRITE Neg Not Available [facility] ([facility]) [address] [place], [address], 12/05/2021 08:06:56 12/06/19 22 12/05/2021 urina lysis , dipst ick PROTEIN Neg Not Available [facility] ([facility]) [address] [place], [address], 12/05/2021 08:06:56 12/06/19 22 12/05/2021 urina lysis , dipst ick GLUCOSE Neg Not Available [facility] ([facility]) [address] [place], [address], 12/05/2021 08:06:56 12/06/19 22 12/05/2021 urina lysis , dipst ick KETONE Neg Not Available [facility] ([facility]) [address], [place], [address], 12/05/2021 08:06:56 12/06/19 22 12/05/2021 urina lysis , dipst ick UROBILINOGEN Normal Not Available [facility] ([facility]) [address] [place], [address], 12/05/2021 08:06:56 12/06/19 22 12/05/2021 urina lysis , dipst ick BILIRUBIN Neg Not Available [facility] ([facility]) [address] [place], [address], 12/05/2021 08:06:56 12/06/19 22 12/05/2021 urina lysis , dipst ick BLOOD Neg Not Available [facility] ([facility]) [address] [place], [address], 12/05/2021 08:06:56 12/07/19 22 12/06/2021 , [facility] [address] [facility] [place] [address] Ultras ound Report Signed Patien t: Sarabjit Castelan MR#: [id number] : [id number] Acct:H [id number] Age/Se x: 51 / M ADM Date: Loc: [facility] RA Attend ing Dr: Disha lilly MD Orderi ng Physic kei: Disha lilly Date of Servic e: Proced ure(s) : US renal BI Access ion Number (s): [id number] H cc: Disha lilly EXAM: US renal [...] Transc riptio nist: [email or web address] [facility] [address] [place] [address], [address], 12/08/2021 08:15:53 Result Notes None recorded. Problems Name Problem SNOMED Code Status Onset Date Resolution Date Notes Provider Name and Address Organization Details Recorded Time Benign essential hypertensi on 1808175 Active 2019 Not Available [facility] 0 23:48:14 Hematemesi s 3073581 Active 2019 Carlton Hamilton MD [address] [place] [address], [address] , [facility] 0 17:09:26 History of SARS-CoV-2 8890597783725 67414 Active 2020 Catherine Ramirez LPN null, [facility] 2 11:01:47 COVID-19 957397548 Active 2020 Disha Callejas MD [address] [facility], [address] , [facility] 15:39:26 Atrial fibrillati on 66376132 Active 2020 Disha Callejas MD [address] [facility], [address] , [facility] 15:46:00 Glaucoma 57044045 Active 2020 Disha Callejas MD [address] [facility], [address] , [facility] 15:46:06 Prediabete s 282336251 Active 2020 Disha Callejas MD [address] [place], [place] [address], [address] , [facility] 15:46:07 Nodule of lung 906714269 Active 2020 Disha Callejas MD [address] [facility], [address] , [facility] 15:46:15 History of myocardial infarction 550059364 Active 2020 Disha Callejas MD [address], [address] , [facility] 2 09:04:19 Left ventricula r hypertroph y 50102915 Active 2020 Disha Callejas MD [address] [facility], [address] , [facility] 15:46:39 Erectile dysfunctio n 341760470 Active 2020 Disha Callejas MD [address] [place], [address] , [facility] 15:46:55 Myocardial infarction 27827931 Active 2021 Leora Castaneda RN, BSN [facility] 08:51:03 Problem Notes None recorded. Procedures Surgical History Date Name Laterality Status Provider Name and Address Organization Details Recorded Time 12/07/19 22 Nutrition completed Monica Ferrara, MS, RDN, LDN [address] [place], [address], [facility] 12/29/2021 11:49:46 10/26/19 22 PHQ-9 Patient Health Questionnaire completed Disha Callejas MD [address] [place], [address], [facility] 10/26/2021 11:40:38 06/16/20 20 PHQ-9 Patient Health Questionnaire completed Disha Callejas MD [address] [place] [address], [address], [facility] 06/16/2020 09:15:13 10/07/19 20 colonoscopy completed Disha Callejas MD [address] [place], [address], [facility] 06/16/2020 08:45:24 partial nephrectomy completed Disha Callejas MD [address] [place] [address], [address], [facility] 04/07/2020 09:27:15 Imaging Results None recorded. Procedure [...] mass index (BMI) Body weight Oxygen saturation Heart rate Systolic And Diastolic Systolic And Diastolic Provider Name and Address Organization Details Last Updated DateTime 187.96 cm 34 kg/m2 258757. 98 g 95 % 71 /min 128/100 mm[Hg] 130/102 mm[Hg] Catherine Ramirez LPN [facility] 11:05:16 Date Recorded Body height Body mass index (BMI) Body weight Heart rate Systolic And Diastolic Provider Name and Address Organization Details Last Updated DateTime 12/05/2021 187.96 cm 33.5 kg/m2 247514.6 1 g 64 /min 124/84 mm[Hg] Yandy Irizarry CMA [facility] 12/05/2021 07:47:48 Date Recorded Body height Body mass index (BMI) Body weight Provider Name and Address Organization Details Last Updated DateTime 12/06/2021 187.96 cm 33.4 kg/m2 567890.02 g Monica Ferrara, MS, RDN, LDN [address] [facility], [place], [address], [facility] 12/06/2021 09:26:01 Date Recorded Body height Body mass index (BMI) Body weight Heart rate Oxygen saturation Systolic And Diastolic Provider Name and Address Organization Details Last Updated DateTime 2 187.96 cm 33.7 kg/m2 772268 g 64 /min 98 % 123/82 mm[Hg] Peri MarcinjennyTAYLOR [facility] 2 12:22:10 Date Recorded Systolic And Diastolic Provider Name and Address Organization Details Last Updated DateTime 08/02/2021 132/84 mm[Hg] Disha Callejas MD [address] [facility] [place], [address], [facility] 08/02/2021 15:47:45 Date Recorded Body height Body mass index (BMI) Body weight Heart rate Oxygen saturation Systolic And Diastolic Provider Name and Address Organization Details Last Updated DateTime 187.96 cm 32.6 kg/m2 922157. 46 g 67 /min 97 % 138/92 mm[Hg] Ken Weldon MA [facility] 1 15:15:44 Social History Question Answer Notes LastModified by Exhibition A Details LastModified Time Tobacco Smoking Status Never Smoker Disha Callejas MD [address] [place] [address] [place], [address] 04/07/2020 09:18:54 How Much Tobacco Do You Chew? None Information not available 04/07/2020 Which Illicit Or Recreational Drugs Have You Used? Denies Information not available 04/07/2020 Hepatitis C Screen 06/16/2020 Nonreactive Information not available 06/17/2020 Tobacco Use (smoking, Smokeless Tobacco) No Information not available 04/07/2020 Date Of Tobacco Screen 08/01/2021 [email or web address] Information not available 08/01/2021 Members Of Household 1 Information not available 04/07/2020 Marital Status Informatio n not available 04/07/2020 What Was The Date Of Your Most Recent Tobacco Screening? 10/26/2021 Information not available 10/26/2021 How Many Children Do You Have? 4 Information not available 04/07/2020 What Is Your Relationship Status? [email or web address] Information not available 08/01/2021 Sex: Unknown Functional Status Question Answer Note LastModified by Organizat ion Details LastModified Time Do you use any illicit or recreational drugs? No [email or web address] Information not available 08/01/2021 What is your [...] zoster recombinant 0 completed Catherine Ramirez LPN [facility] 08/01/2021 15:38:02 COVID-19, mRNA, LNP-S, PF, 30 mcg/0.3 mL dose 1 completed Disha Callejas MD [address] [place], [place] [address], [address], [facility] 10/26/2021 11:31:11 COVID-19, mRNA, LNP-S, PF, 30 mcg/0.3 mL dose 1 completed Disha Callejas MD [address] [place] [address], [address], [facility] 10/26/2021 11:31:11 Influenza, split virus, quadrivalent, PF 8 completed Disha Callejas MD [address] [place], [place] [address], [place], [address], [facility] 10/26/2021 11:31:11 Influenza, split virus, trivalent, preservative 4 completed Disha Callejas MD [address] [place] [address] [place], [address], [facility] 10/26/2021 11:31:11 Influenza, split virus, trivalent, preservative 7 completed Disha Callejas MD [address] [place] [address], [address], [facility] 10/26/2021 11:31:11 Influenza, split virus, quadrivalent, PF 1 completed Disha Callejas MD [address] [place] [address] [place], [address], [facility] 10/26/2021 11:31:11 Influenza, split virus, quadrivalent, PF 0 completed Disha Callejas MD [address] [place], [place] [address], [address], [facility] 10/26/2021 11:31:11 Influenza, split virus, trivalent, preservative 1 completed Disha Callejas MD [address] [place] [address] [place], [address], [facility] 10/26/2021 11:31:11 pneumococcal polysaccharide PPV23 1 completed Disha Callejas MD [address] [place], [place] [address], [address], [facility] 10/26/2021 11:31:11 Influenza, split virus, trivalent, preservative 5 completed Disha Callejas MD [address] [place], [place] [address] [place], [address], [facility] 10/26/2021 11:31:11 Influenza, split virus, trivalent, preservative 2 completed Disha Callejas MD [address] [place] [address] [place], [address], [facility] 10/26/2021 11:31:11 Influenza, split virus, trivalent, preservative 6 completed Disha Callejas MD [address] [place] [address] [place], [address], [facility] 10/26/2021 11:31:11 Influenza, split virus, trivalent, preservative 3 completed Disha Callejas MD [address] [place], [address], [facility] 10/26/2021 11:31:11 Td (adult), 2 Lf tetanus toxoid, preservative free, adsorbed 1 completed Disha Callejas MD [address] [place], [address], [facility] 10/26/2021 11:31:11 Tdap 0 completed Yandy Irizarry CMA null, [facility] 06/16/2020 09:19:12 Past Encounters Encounter ID Performer Location Encounter Start Date Encounter Closed Date Diagnosis/Indication Diagnosis SNOMED-CT Code Diagnosis ICD10 Code Diagnosis IMO Codes Diagnosis Note [id number] Disha Callejas MD [address] [address] 04/07/2020 09:07:08 04/07/2020 09:33:17 Benign essential hypertension 8854646 I10 Patient has a history of hypertensi on for which he has been taking amlodipine 5mg and lisinopril 40mg daily. His blood pressure is currently well controlled . He will continue current medication s which were prescribed today. He will follow-up in 2 months for a physical. Glaucoma 19908313 H40.9 Patient has a history of glaucoma for which he uses eye drops. He has no refills at this time, but has an appointmen t scheduled with an eye doctor next month. Gastroesop hageal reflux disease 254615046 K21.9 Patient has a history of GERD for which he has been taking omeprazole 20mg daily. He notes that while he was in custodial, he got a colonoscop y and was supposed to get an endoscopy as he intermitte ntly has been spitting up blood. GI referral placed and omeprazole refilled. History of primary malignant neoplasm of kidney 106803241 Z85.528 Patient has a history of a renal tumor which was removed in 2013. He has not had significan t follow-up since then. Recommende d nephrology evaluation . Referral placed. [id number] Disha Callejas MD [address] [address] 06/16/2020 08:29:53 06/16/2020 09:11:41 Adult health examination 575535563 Z00.00 Patient should discuss medical decisions with [facility]. Recommende d screenings included colonoscop y screening age 50, earlier based on family history/ri sk factors; one time screen for hepatitis C if born between 9910-7614 or has risk factors. Reviewed vaccines and current recommenda tions. Basic health topics include aerobic exercise, importance of healthy/ba lanced diet and minimizing caffeine and alcohol. Administra tion of diphtheria, pertussis, and tetanus vaccine 747279801 Z23 Patient due for Tdap vaccinatio n. Administer ed today. Screening for malignant neoplasm of colon 942166542 Z12.11 Patient reports a colonoscop y in September of 2019 while he was in custodial. No records available, but states he has a history of polyps. Will plan for follow-up colonoscop y in 3-5 years. Varicella vaccination 68 260348 Z23 Patient due for shingles vaccinatio n. Prescribed to his pharmacy. Benign ess ential hypertension 5630926 I10 Patient has a history of hypertensi on for which he has been taking amlodipine 5mg and lisinopril 40mg daily. His blood pressure is currently well controlled . He will continue current medication s which were prescribed today. He will follow-up in 2 months for a physical. At [facility] risk of sexually transmitted infection 737797404 Z20.2 Patient was recently in custodial and would like to be tested for STDs. Blood and urine obtained for testing today. Hyperlipid emia screening 498684752 Z13.220 Patient due for hyperlipid emia screening. Lipid panel obtained today. Large prostate 639192680 N40.0 Patient has a slightly enlarged prostate on examinatio n. Will check PSA today. Impotence of organic origin 436626143 N52.9 Patient has been struggling with getting and maintainin g an erection. Discussed risks and benefits of medication . Prescribed sildenafil 50mg daily as needed. Patient will follow-up if not improving. Hemorrhoids 74822385 K64 .9 Patient has internal hemorrhoid s which are causing him pressure and discomfort . Prescribed hydrocorti sone cream to use topically and help his symptoms. [id number] Carlton Hamilton MD [address] [place] [address] 07/18/2020 16:45:30 07/18/2020 17:23:52 Hematemesis 8137924 K92.0 A few episodes of bringing up blood (he thinks from the stomach) in Aug and wishes an EGD. No melena. No other red flag ROS. On PRN omeprazole for occasional upper GI ROS. S/p distant treated H.Pylori without check of eradicatio n. Family his tory of cancer of colon 702508539 Z80.0 Father History of polyp of colon 675178361 Z86.010 On prior colons [id number] Donna Segal MD [facility] [address] [place] [phone] 7 07/31/2020 14:46:41 07/31/2020 14:47:09 Viral screening [id number] Z11.59 [id number] [facility] [address] [address] 09/19/2020 12:23:54 09/19/2020 12:48:00 Onychomycosis due to dermatophyte [id number] B35.1 Patient educated about onychomyco sis and that the process to treat this can take some time. Patient will start on medication as directed and is aware of the side effects. Patient will follow up if no improvemen t after 1 month. If no improvemen t then try oral medication . Patient can call with any concerns. History of myocardial infarction [id number] I25.2 Patient stated he had a heart attack back in 2016 and had a pain a couple months ago which scared him. Patient hasn't had pain since. Patient would like a referral to cardiology . [id number] Donna Segal MD [facility] [address] [place] [address] [place] [address] 10/07/2020 16:21:41 10/07/2020 16:22:35 Viral screening [id number] Z11.59 [id number] Disha [facility]lejas [facility] [address] [address] 1 08/02/2021 15:02:27 08/02/2021 16:13:54 COVID-19 [id number] U07.1 Estefania was hospitaliz ed from 07/14/21-1 at [facility] for COVID-19 infection and pneumonia. He was treated with remdesivir and ceftriazon e/azithrom ycin. He is feeling much better, but continues to have a slight cough and some fatigue. Encouraged patient to work on rebuilding his stamina and use honey or cough drops to help with his cough. Patient will follow-up as needed. Prediabetes [id number] R7 3.03 Patient has a history of prediabete s. He would like to see a nutritioni st, referral placed. Benign ess ential hypertension [id number] I10 Patient has a history of hypertensi on for which he has been taking chlorthali done 12.5mg daily and lisinopril 40mg daily. His blood pressure is currently well controlled . He will continue current medication s which were prescribed today. He will follow-up in 2 months or earlier as needed. [id number] Disha Callejas MD [address] [address] 1 10/26/2021 10:51:54 10/26/2021 11:39:09 Adult health examination [id number] Z00.01 Patient should discuss medical decisions with Health Care Proxy. Recommende d screenings included colonoscop y screening age 50, earlier based on family history/ri sk factors; one time screen for hepatitis C if born between 0122-4512 or has risk factors. Reviewed vaccines and current recommenda tions. Basic health topics include aerobic exercise, importance of healthy/ba lanced diet and minimizing caffeine and alcohol. Administra tion of diphtheria, pertussis, and tetanus vaccine [id number] Z23 Patient is up to date, received TDAP in 2020. Screening for malignant neoplasm of colon [id number] Z12.11 Patient reports a colonoscop y in September of 2019 while he was in custodial. No records available, but states he has a history of polyps. Will plan for follow-up colonoscop y in 3-5 years. Viral screening 14952935 4 Z11.59 Non-reacti ve screening in 2020. Varicella vaccination 68 030978 Z23 Patient due for shingles vaccinatio n. Prescribed to his pharmacy. Benign ess ential hypertension [id number] I10 Patient has a history of hypertensi [...] controlled with emtoprolol succinate 50mg daily. Prediabetes 102514259 R7 3.03 Patient has a history of prediabete s. Will check blood work today. Nodule of lung 785626492 R91.1 Patient was found to have a mass in his right lung. He is seeing pulmonolog y at [facility] and has had follow-up scans which demonstrat ed no growth of the area. History of partial nephrectomy 220288941 Z90.5 Patient has a history of a partial nephrectom y for a mass on the kidney years ago. He is now having right flank pain which he states as the same as prior to his partial nephrectom y. Will obtain an ultrasound to evaluate the remaining kidney. Hematemesis 3431221 K92. 0 Patient has a history of coughing up blood and hematemesi s (although has not vomited recently). He has had evaluation s of his lungs and is interested in an endoscopy to check his esophagus. Referral placed to GI. [id number] Caryn Jauregui NP [address] [address] 12/05/2021 07:39:05 12/05/2021 08:06:25 Left lower quadrant pain [id number] R10.32 He states he has been having [...] with no improvemen t in symptoms. Diverticulitis 702862489 K57.92 Patient noted with left lower quadrant [...] or with no improvemen t in symptoms. [id number] Monica Ferrara, MS, RDN, LDN [facility] [address] [place] [phone] 6 12/06/2021 08:04:43 12/06/2021 10:40:31 Prediabetes [id number] R73.03 Summary of Visit:Gi saavedra is a 51 year old primarily Egyptian speaking male referred for prediabete s. Jyoti [...] food groups/lis ts- What Can I Eat? Egyptian handout- Healthy Snack Egyptian handout- Healthy Plate Egyptian handout Educator Assessed Learning Barriers: language barrier [id number] Vlad Escalera NP [facility] [address] [place] [phone] 1 01/04/2022 12:15:26 01/04/2022 12:39:32 Arthritis of left knee joint [id number] M13.862 Suspected arthritis along with meniscus wear [...] Girard Member ID Guarantor Name 08/02/2021 1 [place] [id number] Jai Javier 10/31/2022 1 [facility] (MEDICAID HMO) [id number] Jai Javier [id number] Jai Javier 08/02/2021 2 [place]: [facility] Jai [facility]avier [id number] Jai Javier Notes Date Note Type Note Provider Name and Address Organization Details Recorded Time 08/02/2021 text/html Patient is a 51 year old male who presents today for a hospital follow-up. He was hospitalized from 07/14/21-07/18/21 for COVID. He was hospitalized at [facility]. He got antibiotics (ceftriaxone and azithromycin for pneumonia) and remdesivir while he was hospitalized. He is feeling much better since he got out of the hospital. Disha Callejas MD [address] [place], [phone], [facility] 08/02/2021 15:50:26 10/26/2021 text/html Patient is a [...] prior to having surgery. Disha Callejas MD [address] [place], [phone], [facility] 10/26/2021 11:40:45 12/05/2021 text/html Abdominal PainReported by [...] 2019 that showed diverticulosis. 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 Social Support:Primary Support Person: self, GFLiving Arrangements: lives with GF Previous Diet Education/Training:Pr evious Visit with Dietitian: none Meals and Dining:Meals per day:Snacks per day:Skips meals:Recent dietary changes: eating less latelySpecial diets in the past:Food Allergy or intolerances: none reportedPrimary Manager Pool: usually [employer] Architect:bothDining Out frequency: 1x per weekAlcohol Intake: noneSupplements: Diet recall:- Breakfast: sandwich w/ 1 slice ham and 1 slice cheese, 2 eggs, on potato bread- Lunch: chicken with burmese fries OR empanadas OR sometimes mixed veggies [...] me Monica Ferrara, MS, RDN, LDN [address] [place], [address], [facility] 12/29/2021 12:04:04 01/04/2022 text/html Patient is [...] numbness, tingling or swelling. Disha Callejas MD [address] [place] [address], [phone], [facility] 01/04/2022 16:38:41
--- OUTSIDE RECORDS SUMMARY | 2025-08-13 01:42 | XMS_ITS | Encounter Summary ---
Author Organization [employer] Address [address] [place] [address] Care Team Providers Care Textile Technical Officer Name Role Phone Kathy Hair MD Primary Care Provide r Encounter Details Date Type Department Care Team (Late st Contact Info) Description 08/13/2025 Orders Only GENERIC EXTERNAL DATA DEPARTMENT Provider, Generic External Data Social History Tobacco Use Types Packs/Day Years [...] Description 09/28/2025 9:15 AM EST Office Visit [facility] [address] [place] [address] Kathy Hair MD [address] [place] [address] documented as of this encounter Goals Goal Patient Goal Type Associated Problems Recent Progress Patient-Stated? Author Help patients manage their type 2 diabetes Care Plan Help patients manage their type 2 diabetes No Kathy Hair MD Weekly blood pressure task Care Plan Weekly blood pressure task No Kathy Hair MD Help patients manage their type 2 diabetes Care Plan Help patients manage their type 2 diabetes No Kathy Hair MD Patient has chronic kidney disease Care Plan Patient has chronic kidney disease Kathy Estrada MD Weekly blood pressure task Care Plan Weekly blood pressure task No Kathy Hair MD Patient has chronic kidney disease Care Plan Patient has chronic kidney disease Kathy Estrada MD Weekly blood pressure task Care Plan Weekly blood pressure task Kathy Estrada MD Weekly blood pressure task Care Plan Weekly blood pressure task No Kathy Hair MD Patient has chronic kidney disease Care Plan Patient has chronic kidney disease Kathy Estrada MD Patient has chronic kidney disease Care Plan Patient has chronic kidney disease Kathy Estrada MD documented as of this encounter Procedures Procedure Name Priority Date/Time Associated Diagnosis Comments CBC WITH AUTO DIFFERENTIAL Routine 08/13/2025 1:28 AM EST documented in this encounter Results * (ABNORMAL) CBC auto differential (08/13/2025 1:28 AM EST) White Blood Count 5.6 4.8 - 10.8 X10*3/uL [facility] Red Blood Count 5.17 4.60 - 5.80 X10*6/uL [facility] Hemoglobin 14.9 14.0 - 18.0 g/dl [facility] Hematocrit 43.6 42.0 - 52.0 % [facility] Mean Corpuscular Volume 84.3 80.0 - 98.0 fL [facility] Mean Corpuscular Hemoglobin 28.8 27.0 - 33.0 pg [facility] Mean Corpuscular HGB Conc 34.2 31.0 - 36.0 g/dl [facility] Red Cell Distribution Width 12.7 11.0 - 16.0 % [facility] Platelet Count 250 160 - 400 X10*3/uL [facility] Mean Platelet Volume 10.6 9.4 - 12.4 fL [facility] Neutrophils Percent Auto 48.9 45 - 73 % [facility] Imm Gran Pct Auto 0.0 0.0 - 0.4 % [facility] Lymphocytes Percent Auto 34.4 20 - 40 % [facility] Monocytes Percent Auto 13.2(H) 2 - 11 % [facility] Eosinophils Percent Auto 2.2 0 - 4 % [facility] Basophils Percent Auto 1.3 0 - 2 % [facility] NRBC Pct Auto 0.0 0.0 - 0.2 /100WBC [facility] Neutrophils Absolute Auto 2.7 2.0 - 8.3 x10*3/uL [facility] Imm Gran Abs Auto 0.00 0.00 - 0.03 X10*3/uL [facility] Lymphocytes Absolute Auto 1.9 1.2 - 4.9 X10*3/uL [facility] Monocytes Absolute Auto 0.7 0.1 - 1.2 X10*3/uL [facility] Eosinophils Absolute Auto 0.1 0.0 - 0.4 X10*3/uL [facility] Basophils Absolute Auto 0.1 0.0 - 0.2 X10*3/uL [facility] NRBC Abs Auto 0.000 0.0 - 0.012 X10*3/uL [facility] 08/13/2025 1:28 AM EST 08/13/2025 1:34 AM EST us Generic External Data Provider LAB BLOOD ORDERAB LES Final Result [facility] [address] [place] [address] [phone] documented in this encounter Visit Diagnoses Not on filedocumented in this encounter Additional Health Concerns Active Problems Noted Date Diagnosed Date Help patients manage their type 2 diabetes 08/11 Weekly blood pressure task 08/11/2025 Help patients manage their type 2 diabetes 08/11 Patient has chronic kidney disease 08/11/2025 Weekly blood pressure task 08/11/2025 Patient has chronic kidney disease 08/11/2025 Weekly blood pressure task 08/11/2025 Weekly blood pressure task 08/11/2025 Patient has chronic kidney disease 08/11/2025 Patient has chronic kidney disease 08/11/2025 Assessment Noted Time PHQ-9 Depression Total Score: 0 09/15/20 10:07 AM EST documented as of this encounter Care Teams Textile Technical Officer Relationship Specialty Start Date End Date Kathy Hair MD [address] [place] [phone] PCP - General Internal Medicine [facility] documented as of this encounter
--- OUTSIDE RECORDS SUMMARY | 2025-08-13 01:42 | XMS_ITS | Encounter Summary ---
Author Organization [employer] Address [address] [place] [address] Care Team Providers Care Visual Effects Editor Name Role Phone Kathy Hair MD Primary Care Provide r Reason for Visit * Reason Onset Date Comments Results 08/11/2025 Encounter Details Date Type Department Care Team ([facility] st Contact Info) Description 08/11/2025 Results Follow-Up [facility] [address] [place] [address] Kathy Hair MD [address] [place] [address] [place] Esophagus Barium Swallow w/Air Social History Tobacco Use Types Packs/Day Years [...] encounter Miscellaneous Notes * Telephone Encounter - Nicol Velázquez RN - 08/11/2025 11:49 AM EST TC placed to patient [phone] via [employer] (#[id number]) in regards to below message. Patient verbalized understanding and is aware he will receive a letter in the mail with appointment date and time or a call from their office. Patient to f/u PRN. ----- Message from Kathy Jennings MD sent at 08/11/2025 9:48 AM EST ----- Please let patient know I reviewed his Barium study he has GERD and esophagitis I already put in orhim GI referral I advise to f/u with them thank you ----- Message ----- From: Jacky Samson Results In Sent: 08/11/2025 9:23 AM EST To: Kathy Jennings MD documented in this encounter Plan of Treatment Upcoming Encounters Date Type Department Care Team (Late st Contact Info) Description 09/28/2025 9:15 AM EST Office Visit [facility] [address] [place] [address] [phone] Kathy Hair MD [address] [place] [address] documented as of this encounter Goals Goal [...] Care Plan Patient has chronic kidney disease No Kathy Hair MD Weekly blood pressure task Care Plan Weekly blood pressure task No Kathy Hair MD Patient has chronic kidney disease Care Plan Patient has chronic kidney disease No Kathy Hair MD Weekly blood pressure task Care Plan Weekly blood pressure task No Kathy Hair MD Weekly blood pressure task Care Plan Weekly blood pressure task No Kathy Hair MD Patient has chronic kidney disease Care Plan Patient has chronic kidney disease No Kathy Hair MD Patient has chronic kidney disease Care Plan Patient has chronic kidney disease No Kathy Hair MD documented as of this encounter Visit Diagnoses [...] Time PHQ-9 Depression Total Score: 0 09/15/20 24 10:07 AM EST documented as of this encounter Care Teams Visual Effects Editor Relationship Specialty Start Date End Date Kathy Hair MD [address] [place] [address] PCP - General Internal Medicine 09/15/24 Maikel RODRIGUEZ 04/11/25 documented as of this encounter
--- OUTSIDE RECORDS SUMMARY | 2025-08-13 01:42 | XMS_ITS | Encounter Summary ---
Author Organization [employer] Address [address] [place] [address] Care Team Providers Care Superintendent Power Name Role Phone Kathy Hair MD Primary Care Provide r Encounter Details Date Type Department Care Team (Late st Contact Info) Description 08/11/2025 Orders Only [facility] [address] [place], [place] [phone] Kathy Hair MD [address] [place], [place] [phone] Social History Tobacco Use Types Packs/Day Years [...] Description 09/28/2025 9:15 AM EST Office Visit [facility] [address] [place] [phone] Kathy Hair MD [address] [place] [phone] documented as of this encounter Goals Goal [...] Plan Patient has chronic kidney disease No Kahty Hair MD documented as of this encounter Procedures Procedure Name Priority Date/Time Associated Diagnosis Comments XR CHEST 2 VIEWS Routine 08/13/2025 1:23 AM EST documented in this encounter Results * XR Chest 2 Views (08/13/2025 1:23 AM EST) Anatomical Region Laterality Modality Chest Radiographic Peg ging 08/13/2025 1:23 AM EST Narrative 08/13/2025 1:26 AM EST [address] [address] XRay Report Signed Patient: Jai Herrera MR#: [id number] : 1970 Acct:[id number] Age/Sex: 55 / M ADM Date: 08/13/25 Loc: .ED Attending Dr: Ordering Physician: Generic ED Physician Date of Service: 08/13/25 Procedure(s): XR chest 2V Accession Number(s): [id number] cc: Kathy Hair MD; Generic ED Physician Reason for Exam: chest pain CLINICAL HISTORY: chest pain 2 view chest x-ray Comparison: CR/SR - XR CHEST 1V - 03/15/25 07:54 EDT Findings: Metallic fragments in the right upper lobe unchanged. Scarring changes in the right mid lung zone with adjacent healed rib fractures. Similar eventration of the right hemidiaphragm. Stable cardiac silhouette. Oral contrast in the colon partially visualized. IMPRESSION: 1. No acute findings. This document has been electronically signed by: Debbie Gaines MD on 08/13/2025 01:23:49 Dictated By: Debbie Gaines MD Signed By: <Electronically signed by Debbie Gaines MD in OV> 08/13/25123 DD/ 2 TD/TT: 08/13/25122 Heating Element Repairer: Procedure Note Donotuseinterpreter, Image - 08/13/[address] [address] XRay Report Signed Patient: Sukh HerreraR#: [id number] : 1970Acct:[id number] Age/Sex: 55 / MADM Date: 08/13/25 Loc: HO.ED Attending Dr: Ordering Physician: Generic ED Physician Date of Service: 08/13/25 Procedure(s): XR chest 2V Accession Number(s): [id number] cc: Kathy Hair MD; Generic ED Physician Reason for Exam: chest pain CLINICAL HISTORY: chest pain 2 view chest x-ray Comparison: CR/SR - XR CHEST 1V - 03/15/25 07:54 EDT Findings: Metallic fragments in the right upper lobe unchanged. Scarring changes in the right mid lung zone with adjacent healed rib fractures. Similar eventration of the right hemidiaphragm. Stable cardiac silhouette. Oral contrast in the colon partially visualized. IMPRESSION: 1. No acute findings. This document has been electronically signed by: Debbie Gaines MD on 08/13/2025 01:23:49 Dictated By: Debbie Gaines MD Signed By: <Electronically signed by Debbie Gaines MD in OV> 08/13/25123 DD/ 2 TD/TT: 08/13/25122 Heating Element Repairer: [facility] External Provider IMG XR PROCEDURES Final Result documented in this encounter Visit Diagnoses Not [...] documented as of this encounter Care Teams Superintendent Power Relationship Specialty Start Date End Date Kathy Hair MD [address] [place] [phone] PCP - General Internal Medicine 09/15/24 Maikel RODRIGUEZ 04/11/25 documented as of this encounter
--- OUTSIDE RECORDS SUMMARY | 2025-08-13 01:42 | XMS_ITS | Clinical Summary ---
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 Take 1 tablet [...] with specialist Coronary artery disease invo lving chenega coronary artery of chenega heart without angina pectoris 04/14/2025 Assessment & Plan (04/14/2025 11:20 AM EDT): Continue to follow-up with cardiology Today I added pravastatin 40 mg daily, patient did not tolerate atorvastatin he explained he just did not feel well taking the medication I decided to reduce the doses of lisinopril and hydrochlorothiazide for blood pressure but to continue metoprolol 25 mg daily S/P colostomy ([facility]) 04/14/2025 Assessment & Plan (04/23/2025 [...] History of renal carcinoma 10/02/2023 History of OH (myocardial infarction) 10/02/2023 Resolved Problems Problem Noted [...] Encounters Date Type Department Care Team Description 08/13/2025 Orders Only GENERIC EXTERNAL DATA DEPARTMENT Provider, Generic External Data 08/11/2025 Results Follow-Up [address] [address] Kathy Hair MD [place] Esophagus Barium Swallow w/Air 08/11/2025 Orders Only [address] [address] Kathy Hair MD 07/20/2025 Patient Outreach [address] [address] Kathy Hair MD Pre-visit Planning (Pre visit planning unable to LVM ) 07/13/[address] [address] Kathy Hair MD FMLA Form (I called the patient, regarding a Supplementary Claim Report, from [employer]. I reached a voicemail, and left a message asking him to return my call at extension [phone], or he may reach the forms nurse at ext [phone].) 06/14/2025 Orders Only GENERIC EXTERNAL DATA DEPARTMENT Provider, Generic External Data 06/10/[address] [address] Kathy Hair MD from Last 3 Months Immunizations Immunization Administration Dates Next Due Influenza injectable quadriv alent IIV4 with preservative 06/21/2022 Influenza injectable quadriv alent preservative free 06/23/2021,06/06/2020,07/23/2018 Influenza, IIV3, injectable 07/22/2017,1 10/06/2015,07/20/2015,07/21,07/07/2013,08/08/2012,07/12/2011 Pfizer Covid-19 Vaccine 12+ 02/01/2021, Pneumococcal Conjugate PCV 20 04/14/2025 Pneumococcal Polysaccharide [...] AM EST Office Visit [facility] [address], [place] [phone] Kathy Hair MD [address] [place], [place] [phone] Health Maintenance Due Date Last Done Comments CT Colonography 1970 Colonoscopy 1970 Colorectal Cancer Screening 1970 FIT DNA/Cologuard 1970 FIT 1970 FOBT 1970 Sigmoidoscopy 1970 Diabetes: Foot Exam 1980 Eye Exam 1980 Hepatitis B Vaccines (1 of 3 - 19+ 3-dose series) 1989 RSV Patients and Patients Aged 60 years or older (1 - Risk 50-74 years 1-dose series) 2020 Zoster Vaccines (2 of 2) 08/16/2020 06/21/2020 COVID-19 Vaccine (3 - season) 2025 02/01/2021, 01/11/2021 Influenza Vaccine (#1) 2025 2, 06/23/2021, 06/06/2020, Additional history exists Alcohol/Substance Use Screening 09/15/2025 09/15/2024 Depression Screening 09/15/2025 09/15/2024, 09/15/20 24 Diabetes: Hemoglobin A1C 10/24/2025 025, 04/14/2025, 09/15/2024 SDOH Screening 12/07/2025 12/07/2024 Disability Screening 12/15/2025 12/15/2024 Diabetes: Urine Protein Screening 04/14/2026 04/14/2025 Lipid Panel 04/14/2026 04/14/2025, 09/15/2024 Tobacco Screening 04/14/2026 04/14/2025 DTaP/Tdap/Td Vaccines (2 - Td or Tdap) 06/16/2030 06/16/2020, 09/30/2010 HIV Screening Completed 01/22/2025, 09/15/2024 Hepatitis C [...] on patient's age to complete this topic Goals Goal Patient Goal Type Associated Problems Recent Progress Patient-Stated? Author Help patients manage their type 2 diabetes Care Plan Help patients manage their type 2 diabetes No Kathy Hair MD Weekly blood pressure task Care Plan Weekly blood pressure task Kathy Estrada MD Help patients manage their type 2 diabetes Care Plan Help patients manage their type 2 diabetes No Kathy Hair MD Patient has chronic kidney disease Care Plan Patient has chronic kidney disease Kathy Estrada MD Weekly blood pressure task Care Plan Weekly blood pressure task Kathy Estrada MD Patient has chronic kidney [...] chronic kidney disease No Kathy Hair MD Procedures Procedure Name Priority Date/Time Associated Diagnosis Comments CBC WITH AUTO DIFFERENTIAL Routine 08/13/2025 1:28 AM EST XR CHEST 2 VIEWS Routine 08/13/2025 1:23 AM EST FL ESOPHAGUS BARIUM SWALLOW WITH AIR Routine 08/11/2025 8:36 AM EST SED RATE BY MODIFIED WESTERGREN Routine 06/14/2025 [...] complication, without long-term current use of insulin ([facility]/HCC) ALBUMIN, RANDOM URINE W/CREATININE Routine 04/14/2025 10:21 [...] Relevant to Health Maintenance Results * (ABNORMAL) CBC auto differential (08/13/2025 1:28 AM EST) Only the most recent of2 resultswithin the time period is included. White Blood Count 5.6 4.8 - 10.8 X10*3/uL [facility] Red Blood Count 5.17 4.60 - 5.80 X10*6/uL [facility] Hemoglobin 14.9 14.0 - 18.0 g/dl [facility] Hematocrit 43.6 42.0 - 52.0 % [facility] Mean Corpuscular Volume 84.3 80.0 - 98.0 fL [facility] Mean Corpuscular Hemoglobin 28.8 27.0 - 33.0 pg [facility] Mean Corpuscular HGB Conc 34.2 31.0 - 36.0 g/dl [facility] Red Cell Distribution Width 12.7 11.0 - 16.0 % [facility] Platelet Count 250 160 - 400 X10*3/uL [facility] Mean Platelet Volume 10.6 9.4 - 12.4 fL [facility] Neutrophils Percent Auto 48.9 45 - 73 % [facility] Imm Gran Pct Auto 0.0 0.0 - 0.4 % [facility] Lymphocytes Percent Auto 34.4 20 - 40 % [facility] Monocytes Percent Auto 13.2(H) 2 - 11 % [facility] Eosinophils Percent Auto 2.2 0 - 4 % [facility] Basophils Percent Auto 1.3 0 - 2 % [facility] NRBC Pct Auto 0.0 0.0 - 0.2 /100WBC [facility] Neutrophils Absolute Auto 2.7 2.0 - 8.3 x10*3/uL [facility] Imm Gran Abs Auto 0.00 0.00 - 0.03 X10*3/uL [facility] Lymphocytes Absolute Auto 1.9 1.2 - 4.9 X10*3/uL [facility] Monocytes Absolute Auto 0.7 0.1 - 1.2 X10*3/uL [facility] Eosinophils Absolute Auto 0.1 0.0 - 0.4 X10*3/uL [facility] Basophils Absolute Auto 0.1 0.0 - 0.2 X10*3/uL [facility] NRBC Abs Auto 0.000 0.0 - 0.012 X10*3/uL [facility] 08/13/2025 1:28 AM EST 08/13/2025 1:34 AM EST us Generic External Data Provider LAB BLOOD ORDERAB LES Final Result Performing Organization Address City/State/[facility] Co de Phone Number [facility] [address] [place] [phone] * XR Chest 2 Views (08/13/2025 1:23 AM EST) Anatomical Region Laterality Modality Chest Radiographic Peg ging 08/13/2025 1:23 AM EST Narrative 08/13/2025 1:26 AM EST [address] [address] XRay Report Signed Patient: Jai Herrera MR#: [id number] : 1970 Acct:[id number] Age/Sex: 55 / M ADM Date: 08/13/25 Loc: .ED Attending Dr: Ordering Physician: Generic ED Physician Date of Service: 08/13/25 Procedure(s): XR chest 2V Accession Number(s): [id number] cc: Kathy Hair MD; Generic ED Physician [...] in OV> 08/13/25123 DD/ 2 TD/TT: 08/13/25122 Lease Examiner: Procedure Note Donotuseinterpreter, Image - 08/13/2025 [place] [address] XRay Report Signed Patient: Jerrell Herrera#: [id number] : 1970Acct:[id number] Age/Sex: 55 / MADM Date: 08/13/25 Loc: .ED Attending Dr: Ordering Physician: Generic ED Physician Date of Service: 08/13/25 Procedure(s): XR chest 2V Accession Number(s): [id number] cc: Kathy Hair MD; Generic ED Physician [...] MD in OV> 08/13/25123 DD/ 2 TD/TT: 11/21/25 0123 Lease Examiner: [facility] External Provider IMG XR PROCEDURES Final Result * FL Esophagus Barium Swallow w/Air (08/11/2025 8:36 AM EST) Anatomical Region Laterality Modality Head, Neck Radiographic Peg ging 08/11/2025 8:36 AM EST Narrative 08/11/2025 9:18 AM EST [address] [address] Fluoroscopy Report Signed Patient: Jai Herrera MR#: [id number] : 1970 Acct:[id number] Age/Sex: 55 / M ADM Date: 08/11/25 Loc: MIAN Attending Dr: Kathy Jennings MD Ordering Physician: Kathy Hair MD Date of Service: 08/11/25 Procedure(s): FL barium swallow with air Accession Number(s): [id number] cc: Kathy Hair MD Reason for Exam: feels food gets stuck EXAMINATION: XR BARIUM SWALLOW CLINICAL INFORMATION: feels food gets stuck COMPARISON: None available. TECHNIQUE: Barium swallow was performed using thin and thick barium and effervescent granules. Barium tablet was also administered. FINDINGS: Swallowing mechanism is normal. No aspiration or penetration. Esophageal motility is normal. There is mild gastroesophageal reflux. There is mild mucosal irregularity questionable for esophagitis in the mid and distal esophagus. No hernia, mass or stricture. Barium tablet passed freely into the stomach. FLUOROSCOPY TIME: 1 minute 52 seconds DOSE AREA PRODUCT: 1445 uGy-m2 (microgray-meter squared) FL/FL barium swallow with air IMPRESSION: Mild gastroesophageal reflux and question mild esophagitis of the mid and distal thoracic esophagus. Electronically signed by: Ileana Palafox MD 08/11/2025 09:16 AM EST Dictated By: Ileana Palafox MD Signed By: <Electronically signed by Ileana Palafox MD in OV> 08/11/25 0916 DD/ TD/TT: 08/11/25 0852 Lease Examiner: JOELLEN Procedure Note Donotuseinterpreter, Image - 08/11/[address] [address] Fluoroscopy Report Signed Patient: Jerrell Herrera#: [id number] : 1970Acct:[id number] Age/Sex: 55 / MADM Date: 08/11/25 Loc: HO.XRAY Attending Dr: Kathy Jennings MD Ordering Physician: Kathy Hair MD Date of Service: 08/11/25 Procedure(s): FL barium swallow with air Accession Number(s): [id number] cc: Kathy Hair MD Reason for Exam: feels food gets stuck EXAMINATION: XR BARIUM SWALLOW CLINICAL INFORMATION: feels food gets stuck COMPARISON: None available. TECHNIQUE: Barium swallow was performed using thin and thick barium and effervescent granules. Barium tablet was also administered. FINDINGS: Swallowing mechanism is normal. No aspiration or penetration. Esophageal motility is normal. There is mild gastroesophageal reflux. There is mild mucosal irregularity questionable for esophagitis in the mid and distal esophagus. No hernia, mass or stricture. Barium tablet passed freely into the stomach. FLUOROSCOPY TIME: 1 minute 52 seconds DOSE AREA PRODUCT: 1445 uGy-m2 (microgray-meter squared) FL/FL barium swallow with air IMPRESSION: Mild gastroesophageal reflux and question mild esophagitis of the mid and distal thoracic esophagus. Electronically signed by: Ileana Palafox MD 08/11/2025 09:16 AM [facility] Dictated By: Ileana Palafox MD Signed By: <Electronically signed by Ileana Palafox MD in OV> 08/11/25 0916 DD/ 0836 TD/TT: 08/11/25 0852 Lease Examiner: JOELLEN us Kathy Jennings MD IMG FLUOROSCOPY PROCE ELIZABETH Edited Result - Final * Influenza A B2 ID NOW (López) (06/14/2025 1:22 PM EDT) IDNOW SERIAL# [id number] [facility] Influenza A Negative Negative [facility] Influenza B2 Negative Negative [facility] Influenza A B2 Note See Note [facility] Comment:The López ID NOW In fluenza [...] LAB MICROBIOLOGY - GENERAL ORDERABLES Final Result [facility] [address] [place] [phone] * COVID-19 ID NOW (LÓPEZ) (06/14/2025 1:22 PM EDT) IDNOW SERIAL# [id number] [facility] COVID-19 TEST Negative Negative [facility] COVID-19 NOTE See Note [facility] Comment: Results are for the identification of SARS-CoV2 RNA. TheSARS-CoV2 RNA is generally detectable in respiratory samplesduring the acute phase of infection. Positive results areindicative of the presence of SARS-CoV-2 RNA; clinicalcorrelation with patient history and other diagnosticinformation is necessary to determine patient infectionstatus. Positive results do not rule out bacterial infectionor co- infection with other viruses.Testing facilities within the [facility] and itsterritories are required to report all positive results [...] use by authorized laboratories.Testing performed on the [employer] ID NOW utilizing NAAT. 06/14/2025 1:22 PM EDT 06/14/2025 1:26 PM EDT Generic External Data Provider LAB MOLECULAR MARCOS GNOSTICS ORDERABLES Final Result Performing Organization Address [facility] Co de Phone Number [facility] [address] [place] [phone] * Sed Rate by Modified Kojoergren (06/14/2025 1:22 PM EDT) Erythrocyte Sedimentation Rate 7 0 - 15 MM/HR [facility] Comment:Patients with polycy themia and many hemoglobin abnormalitiesmay have depressed sed rates whereas patients with anemiamay have elevated sed rates. 06/14/2025 1:22 PM EDT 06/14/2025 4:15 PM EDT Generic External Data Provider LAB BLOOD ORDERAB LES Final Result Performing Organization Address [facility] de Phone Number [facility] [address] [place] [phone] * Magnesium (06/14/2025 1:22 PM EDT) Pathologist [facility] Magnesium 2.0 1.6 - 2.6 mg/dL [facility] 06/14/2025 1:22 PM EDT 06/14/2025 1:26 PM EDT Generic External Data Provider LAB BLOOD ORDERAB LES Final Result Performing Organization Address [facility] Co de Phone Number [facility] [address] [place] [phone] * (ABNORMAL) Comprehensive Metabolic Panel (06/14/2025 1:22 PM EDT) Sodium 140 135 - 145 mmol/L [facility] Potassium 3.8 3.3 - 5.1 mmol/L [facility] Chloride 102 96 - 108 mmol/L [facility] Carbon Dioxide 32(H) 22 - 29 mmol/L [facility] Anion Gap 10(L) 12 - 20 [facility] Urea Nitrogen (BUN) 13 9 - 16 mg/dL [facility] Creatinine, Serum 0.75 0.5 - 1.4 mg/dL [facility] Creatinine Clr Calc Pharmacy 117.8 [facility] Comment:eGFR (calculated fro m the MDRD study equation) and eCrCl(calculated from the Cockcroft-Gault equation) are based ondifferent parameters and may not yield comparable results.If eCrCl result is absurd, please check patient'sheight/weight. Estimated Glomerular Filt Rate >60 [facility] Comment:Chronic Kidney Disea se: Estimated GFR < 60 mL/min/1.51l5Wtbsxt Kidney Disease: Estimated GFR < 15 mL/min/1.73m2 Glucose 104 60 - 115 mg/dL [facility] Calcium 9.3 8.4 - 10.2 mg/dL [facility] Bilirubin, Total 0.4 0.0 - 1.0 mg/dL [facility] Aspartate Amino Transferase 26 5 - 37 U/L [facility] Alanine Aminotransferase 37 0 - 40 U/L [facility] Total Protein 7.4 6.5 - 8.0 g/dL [facility] Albumin Level 4.0 3.5 - 5.0 g/dL [facility] Alkaline Phosphatase 56 39 - 117 U/L [facility] 06/14/2025 1:22 PM EDT 06/14/2025 1:26 PM EDT us Generic External Data Provider LAB BLOOD ORDERAB LES Final Result [facility] [address] [place] [phone] * (ABNORMAL) POCT HGB A1C (04/23/2025 10:54 AM EDT) Hemoglobin A1C 6.1(A) 4.0 - 5.7 % Blood 04/23/2025 10:5 4 AM EDT Kathy Jennings MD POINT OF CARE TEST EN TER/EDIT ORDERABLES Final Result * Albumin, Random Urine W/Creatinine (04/14/2025 10:21 AM EDT) Creatinine, Urine 136.09 mg/dL [facility] Microalbumin Urine 8.0 mg/L [facility] Microalbum Creatinine Ratio Ur 5.8 <30 ug/mg cr [facility] Comment:Albumin/Creatinine R atio Reference Ranges: Normal: < 30 ug/mg creatinine Microalbuminuria: 30 - 300 ug/mg creatinineClinical Albuminuria: > 300 ug/mg creatinine Urine (Urine, Random) 04/14/2025 10:21 AM EDT 04/14/2025 11:11 AM EDT Kathy Jennings MD LAB URINE ORDERABLES Final Result [facility] [address] [place] [phone] * (ABNORMAL) Lipid Panel, Standard (04/14/2025 10:21 AM EDT) Triglycerides 169(H) <150 mg/dL [facility] Comment:Desirable Triglyceri de: less than 150 mg/dLBorderline High Triglyceride 150-199 mg/dLHigh Triglyceride: 200-499 mg/dLVery High Triglyceride: greater than or equal to 5OO mg/dL Cholesterol 215(H) <200 mg/dL [facility] Comment:Desirable Cholestero l: less than 200 mg/dLBorderline High Cholesterol: 200-239 mg/dLHigh Cholesterol: greater than 239 mg/dL LDL Cholesterol Calculated 142(H) <100 mg/dL [facility] Comment:Desirable LDL: less than 100 mg/dLNear Optimal/Above Optimal LDL: 110- 129 mg/dLBorderline High LDL: 130-159 mg/dLHigh LDL: 160-189 mg/dLVery High LDL: greater than or equal to 190 mg/dL HDL Cholesterol 40(L) >40 mg/dL [facility] Comment:Desirable HDL: great er than 40 mg/dL Note: This HDL assay may give artificially low results in patients with liver disease. Blood Venous blood specimen / Unknown 04/14/2025 10:21 AM EDT 04/14/2025 11:24 AM EDT us Kathy Jennings MD LAB BLOOD ORDERABLES Final Result Performing Organization Address [facility] Co de Phone Number [facility] [address] [place] [phone] * Hepatitis C Antibody with Reflex to HCV, RNA, Quantitative, Real-Time PCR (01/22/2025 11:06 AM EDT) Hepatitis C Antibody Nonreactive Nonreactive [facility] Comment:Antibodies to HCV no t detected; does not exclude early acuteHCV infection. Blood Venous blood specimen / Unknown 01/22/2025 11:06 AM EDT 01/22/2025 4:04 PM EDT us Ward Dorsey MD LAB BLOOD ORDERABLES Final Resul t Performing Organization Address [facility] Co de Phone Number [facility] [address] [place] [phone] * HIV-1/2 Antigen and Antibodies, Fourth Generation, with Reflexes (01/22/2025 11:06 AM EDT) HIV AB/AG Nonreactive Nonreactive [facility] Comment:HIV-1 p24 Ag and/or HIV-1/HIV-2 Ab not detected.A test result that is nonreactive does not exclude thepossibility of exposure to or infection with HIV-1 and/orHIV-2. Nonreactive results in this assay for individualswith prior exposure to HIV-1 and/or HIV-2 may be due toantigen and antibody levels that are below the limit ofdetection of this assay.The [id number] HIV Ag/Ab Combo assay result andsupplemental assay results should be interpreted inconjunction with the patient's clinical presentation,history and other laboratory results. If the results areinconsistent with clinical evidence, additional testing issuggested to confirm the result. Blood Venous blood specimen / Unknown 01/22/2025 11:06 AM EDT 01/22/2025 4:04 PM EDT us Ward Dorsey MD LAB BLOOD ORDERABLES Final Resul t [facility] [address] [place] [phone] from Last 3 Months or Most Recently Relevant to Health Maintenance Additional Health Concerns Active Problems Noted Date [...] 08/11/2025 Patient has chronic kidney disease 08/11/2025 Insurance HSN [facility] [facility] C3 Care Teams Starting Gate Driver Relationship Specialty Start Date End Date Kathy Hair MD [address] [place] [phone] PCP - General Internal Medicine 09/15/24 [facility] 04/11/25
--- OUTSIDE RECORDS SUMMARY | 2025-08-13 01:42 | XMS_ITS | Encounter Summary ---
Author Organization [employer] Address [address] [place] [address] Care Team Providers Care Ribbon Inker Name Role Phone Kathy Hair MD Primary Care Provide r Reason for Visit * Reason Comments Med Refill Encounter Details Date Type Department Care Team (Late st Contact Info) Description 07/15/2024 Refill [facility] [address] [place] [phone] Kenan Mays MD [address] [place] [address] Essential hypertension Social History Tobacco Use Types [...] 9:15 AM EST Office Visit [facility] [address] [place] [phone] Kathy Hair MD [address] [place] [phone] documented as of this encounter Visit Diagnoses Diagnosis Essential hypertension Unspecified essential hypertension documented in this encounter Care Teams Ribbon Inker Relationship Specialty Start Date End Date Kathy Hair MD [address] [place] [phone] PCP - General Internal Medicine 09/15/24 Maikel RODRIGUEZ 04/11/25 documented as of this encounter
--- OUTSIDE RECORDS SUMMARY | 2025-08-13 01:42 | XMS_ITS | Encounter Summary ---
Author Organization [employer] Address [address] [place] [address] Care Team Providers Care Product Development Ecologist Name Role Phone Kathy Hair MD Primary Care Provide r Reason for Visit * Reason Comments Med Refill Encounter Details Date Type Department Care Team (Late Contact Info) Description 06/22/2024 Refill [facility] [address] [place] [phone] Name, MD Wenceslao [address] [place] [phone] Social History Tobacco Use Types Packs/Day Years [...] Description 09/28/2025 9:15 AM EST Office Visit [facility] [address] [place] [phone] Kathy Hair MD [address] [place] [phone] documented as of this encounter Visit Diagnoses Not on filedocumented in this encounter Care Teams Product Development Ecologist Relationship Specialty Start Date End Date Kathy Hair MD [address] [place] [phone] PCP - General Internal Medicine 09/15/24 Maikel RODRIGUEZ 04/11/25 documented as of this encounter
[2025-08-13 01:49] LABS: Anion Gap 12 (12-20); Blood Urea Nitrogen 18 mg/dL (9-16); Calcium 9.0 mg/dL (8.4-10.2); Carbon Dioxide 27 mmol/L (22-29); Chloride 104 mmol/L (96-108); Creatinine Clr Calc Pharmacy 154.6; Estimated Glomerular Filt Rate > 60; Potassium 3.5 mmol/L (3.3-5.1); Sodium 139 mmol/L (135-145)
[2025-08-13 01:55] LABS: Troponin-I High Sensitivity 54.7 ng/L (<3.5-35.0)
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
[2025-08-13 03:54] VITALS: BP 141/91; PULSE 60; TEMP 36.4; O2SAT 96
[2025-08-13] MEDS: iohexoL 350 MG/ML 100 ML INFUS..BTL IV (04:17)
[2025-08-13 04:25] LABS: Troponin-I High Sensitivity 53.0 ng/L (<3.5-35.0)
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
--- NOTE | 2025-08-13 07:41 | PHA.MEDREC ---
Pharmacy Consult ? Medication Reconciliation Pharmacy has completed the medication reconciliation.Med rec complete, spoke to patient and compared with pharmacy claims history
[2025-08-13 09:46] VITALS: BMI 33.3
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
[2025-08-13 10:23] VITALS: BP 147/91; PULSE 68; RESP 18; TEMP 36.7; O2SAT 95
[2025-08-13] MEDS: 0.9 % Sodium Chloride Flush 3 ML SYRINGE IVFLUSH ×3 (11:19→19:50)
--- NOTE | 2025-08-13 11:31 | CA_ITS ---
Acquisition Time: 2025-08-13 11:51:07 Total Exercise Time: 00:07:06 Test Indications: CP ELEVATED TROP Medications: SEE EMAR Protocol: HERNESTO Max HR: 134 BPM 81% of Pred: 165 BPM Max BP: 190/100 mmHG Max Work Load: 8.6 METS Exercise stress test with exercise 7 mins 6 secs of [place] Protocol, achieving 83% MPHR, with reports of SOB, no chest pain, with isolated PACs and PVCs, with normotensive response to exercise. Without any EKG changes meeting criteria for ischemia. In recovery, breathing improved and pt feeling back to baseline. Test reviewed with Dr. Isbell. Referred By: Tad Isbell Electronically Signed By: Sridhar Zimmer
--- NOTE | 2025-08-13 12:00 | CA_ITS ---
Transthoracic Echocardiogram Patient (Last, First, Middle): Jai Herrera, Gender: M Date of : 1970 Age: 55 Procedure Date: 08/13/2025 Procedure Type: Transthoracic Echocardiogram Location: [facility] Height: 182.88 cm Weight: 115.67 kg BSA: 2.36 m2 Heart Rate: 63 bpm BP: 124 / 80 mmHg Senior Integration Architect: Referring MD: Tad Isbell MD Symptoms: chest pain Study Quality: Adequate ECG Rhythm: Sinus Conclusions: - The left ventricular systolic function is normal. The calculated ejection fraction is 58% by biplane method. - No obvious valvular pathology seen on this study. - There is mild dilatation of the ascending aorta measuring 3.80 cm. Findings Left Ventricle Normal left ventricular cavity size. There is mildly increased left ventricular wall thickness. The left ventricular systolic function is normal. The calculated ejection fraction is 58% by biplane method. There is no evidence of regional wall motion abnormalities. Diastolic function is normal for age. Right Ventricle Normal right ventricular cavity size and systolic function. Atria Both atria are normal in size. Aortic Valve There is a normal trileaflet aortic valve. There is no aortic valve stenosis. There is no aortic valve regurgitation. Mitral Valve The mitral valve appears normal. There is no mitral valve regurgitation. There is no mitral valve stenosis. Pulmonic Valve There is trace pulmonic valve regurgitation. Tricuspid Valve There is trace tricuspid valve regurgitation. There is no evidence of pulmonary hypertension. Great Vessels There is mild dilatation of the ascending aorta measuring 3.80 cm. Venous The inferior vena cava is normal in size and collapses greater than 50% with inspiration. Pericardium/Pleural There is no evidence of pericardial effusion. Prior Study Comparison No prior study available for comparison. Recommendations, Care & Conclusions No obvious valvular pathology seen on this study. Measurements 2D Linear Measurements IVSd: 1.35 0.6-0.9/0.6-1.0 cm LVIDd: 5.24 3.9-5.3/4.2-5.9 cm LVIDd Index: 2.22 2.4-3.2/2.2-3.1 cm/m2 LVIDs: 3.14 2.0-3.6 cm LVPWd: 1.39 0.7-1.1 cm LA Diam: 4.70 2.7-3.8/3.0-4.0 cm LAIDs Index: 1.99 1.5-2.3 cm/m2 LV Mass: 378.86 67-162/88-224 g LV Mass Index: 160.54 43-95/49-115 g/m2 LVOT Diam: 2.50 3.0+(-)1.3 cm 2D Systolic Function EF 4C: 60.10 >55% EF 2C: 53.80 >55% EF BiP: 57.70 >55% Mitral Valve MV Pk E: 0.42 MV PK A: 0.57 MV Decel Time: 278.00 E/A: 0.70 E'Lateral: 9.46 E'Medial: 8.38 E/E' Med: 5.10 E/E' Lat: 4.50 PHT: 81.00 MVA PHT: 2.72 Decel [place]: 1.52 Aortic Valve AoV Pk Colin: 1.28 AoV Mn Colin: 0.82 AoV VTI: 0.25 AoV Pk Grad: 7.00 Aov Mn Grad: 4.00 KARLY Cont.VTI: 3.45 LVOT LVOT Pk Colin: 0.76 LVOT Mn Colin: 0.50 LVOT VTI: 0.18 LVOT Pk Grad: 2.00 LVOT Mn Grad: 2.00 LVOT Diam: 2.50 LVOT Area: 4.91 Diastolic Function MV Pk E: 0.42 MV Pk A: 0.57 E/A: 0.70 E'Medial: 8.38 E/E' Med: 5.10 E' Laterial: 9.46 E/E' Lat: 4.50 Right Ventricle TAPSE (mm): 18.90 TVS' Colin: 16.20 Tricuspid Valve TR Pk Colin: 2.22 TR Pk Grad: 20.00 Great Vessels Aorta Sinus of Valsalva: 3.90 2.0-3.5 cm Ao Asc: 3.80 2.1-3.4 cm Pulmonary Valve PV Pk Colin: 0.94 Peak PV Grad: 4.00 Updated in Other Vendor System with Status of Final Tad Isbell MD electronically signed on 08/13/2025 11:23:52 AM with status of Final
--- NOTE | 2025-08-13 13:27 | MHC.CM.PN ---
RUBINA GIVEN 08/13. THIS CM MET WITH PATIENT AND HIS SISTER PRESENT AT BEDSIDE WITH THE ASSISTANCE OF A BOLT HEADER. PATIENT LIVES AT HOME WITH HIS SISTER, AND IS INDEPENDENT WITH CARE. PATIENT WILL ARRANGE HIS OWN TRANSPORT HOME AT DISCHARGE. EDUCATION PROVIDED ON HCP, PATIENT DECLINES TO COMPLETE ONE AT THIS TIME. PCP: DR. KILEY BEAVERS
[2025-08-13 15:00] VITALS: BP 156/94; PULSE 61; RESP 18; TEMP 36.6; O2SAT 94
--- NOTE | 2025-08-13 18:27 | PM.EVENT ---
Event Note Date of Service: 08/13/25 Event Note: Patient feels well today No complaints of chest pain or retrosternal pressure Echocardiography performed Physical examination unremarkable Lab work unremarkable other than troponin leak Please refer to H&P performed earlier today Cardiology has seen the patient with an impression of atypical chest pain Patient had cardiac catheterization 2015, revealing unremarkable coronary arteries Echocardiography from 08/13 revealing LVEF 58% without evidence of regional wall motion abnormalities with normal diastolic function. Mild increased left ventricular wall thickness was noted. Normal RVEF, without clinically significant valvulopathy We will touch base with Cardiology tomorrow. Consider outpatient stress test Time Spent With Patient Time: Total time managing care of this patient today 35 minutes.
[2025-08-13 19:19] VITALS: BP 167/88; PULSE 89; RESP 18; TEMP 36.8; O2SAT 95
[2025-08-14] VITALS: BP 155/87; PULSE 78; RESP 18; TEMP 36.8; O2SAT 96
[2025-08-14 03:27] VITALS: BP 146/83; PULSE 67; RESP 18; TEMP 36.4; O2SAT 95
[2025-08-14 07:47] LABS: MANUAL DIFF FLAG NO
[2025-08-14 07:56] LABS: Hematocrit 46.6 % (42.0-52.0); Hemoglobin 16.0 g/dl (14.0-18.0); Imm Gran Abs Auto 0.01 X10*3/uL (0.00-0.03); Imm Gran Pct Auto 0.2 % (0.0-0.4); Lymphocytes Absolute Auto 1.9 X10*3/uL (1.2-4.9); Mean Corpuscular HGB Conc 34.3 g/dl (31.0-36.0); Mean Corpuscular Hemoglobin 29.2 pg (27.0-33.0); Mean Corpuscular Volume 85.0 fL (80.0-98.0); NRBC Abs Auto 0.000 X10*3/uL (0.0-0.012); NRBC Pct Auto 0.0 /100WBC (0.0-0.2); Platelet Count 269 X10*3/uL (160-400); Red Blood Count 5.48 X10*6/uL (4.60-5.80); White Blood Count 5.3 X10*3/uL (4.8-10.8)
[2025-08-14 08:00] VITALS: BP 137/78; PULSE 71; RESP 19; TEMP 36.4; O2SAT 93
[2025-08-14 08:15] LABS: Alanine Aminotransferase 32 U/L (0-40); Albumin Level 4.3 g/dL (3.5-5.0); Alkaline Phosphatase 58 U/L (39-117); Anion Gap 11 (12-20); Aspartate Amino Transferase 27 U/L (5-37); Blood Urea Nitrogen 13 mg/dL (9-16); Calcium 9.2 mg/dL (8.4-10.2); Carbon Dioxide 28 mmol/L (22-29); Chloride 102 mmol/L (96-108); Creatinine Clr Calc Pharmacy 155.9; Estimated Glomerular Filt Rate > 60; Potassium 3.4 mmol/L (3.3-5.1); Sodium 138 mmol/L (135-145); Total Protein 7.8 g/dL (6.5-8.0)
[2025-08-14] MEDS: 0.9 % Sodium Chloride Flush 3 ML SYRINGE IVFLUSH (08:19)
--- NOTE | 2025-08-14 09:37 | P.PNCA_ITS ---
Subjective Subjective Date of Service: 08/14/25 Interval history: He states he feels fine. No cardiac symptoms. Had exercise stress test yesterday which was okay. Review of Systems Review of Systems Yes all other systems are reviewed and are negative Constitutional: Reports as per HPI and Reports no additional constitutional complaints Eyes: Reports as per HPI and Denies no additional eye complaints Denies system reviewed and no additional complaints, except as documented and Reports as per HPI Cardiovascular: Reports as per HPI, Reports no additional cardiovascular complaints, Denies acrocyanosis, Denies cool extremities, Denies chest pain, Denies leg edema, Denies lightheadedness, Denies palpitations and Denies dyspnea Respiratory: Reports as per HPI, Denies no additional respiratory complaints and Denies dyspnea Gastrointestinal: Reports as per HPI and Denies no additional gastrointestinal complaints Genitourinary: Reports no additional male genitourinary complaints and Reports as per HPI Musculoskeletal: Reports no additional musculoskeletal complaints and Reports as per HPI Skin/Breast: Reports system reviewed and no additional complaints, except as docu Reports system reviewed and no additional complaints, except as documented and Reports as per HPI Psychiatric: Reports no additional psychiatric complaints and Reports as per HPI Endocrine: Reports no additional endocrine complaints, Reports as per HPI and Denies palpitations Hematologic/Lymphatic: Reports no additional hematologic/lymphatic complaints and Reports as per HPI Allergic/Immunologic: Reports no additional allergic/immunologic complaints and Reports as per HPI Physical Exam Vital Signs: Last Vital Signs Temp 97.6 F 08/14/25 08:00 Pulse 71 08/14/25 08:00 Resp 19 08/14/25 08:00 BP 137/78 08/14/25 08:00 Pulse Ox 93 08/14/25 08:00 O2 Del Method Room Air 08/14/25 08:00 BMI result Body Mass Index 33.3 Const General: comfortable and no acute distress Orientation/consciousness: patient oriented x3 HEENT Other: Unremarkable Head: Yes normal to inspection Neck Neck: Yes normal visual inspection Chest Chest palpation & inspection: normal inspection of the chest Resp Auscultation: clear to auscultation bilaterally Cardio Palpation: normal PMI Heart sounds: S1 normal heart sound present, S2 normal heart sound present, no gallops, no murmurs and no rubs GI Palpation (GI): Soft to palpation Back/Spine/Pelvis Other: unremarkable Skin General skin exam: no rashes or lesions noted Neuro General: patient oriented x3 Extrem General: Yes normal to inspection Psych Mental Status: mental status grossly normal Objective Labs and Meds 08/14/25 07:23 08/14/25 07:24 Lab results: Laboratory Results - last 24 hr 08/14/25 08/14/25 07:23 07:24 WBC 5.3 RBC 5.48 Hgb 16.0 Hct 46.6 MCV 85.0 MCH 29.2 MCHC 34.3 RDW 12.6 Plt Count 269 MPV 10.8 Immature Gran % (Auto) 0.2 Neut % (Auto) 50.1 Lymph % (Auto) 34.8 [place] % (Auto) 11.4 H Eos % (Auto) 2.2 Baso % (Auto) 1.3 Lymph # (Auto) 1.9 [place] # (Auto) 0.6 Eos # (Auto) 0.1 Baso # (Auto) 0.1 Abs Immat Gran (auto) 0.01 Absolute Neuts (auto) 2.7 Absolute Nucleated RBC 0.000 Nucleated RBC % (auto) 0.0 Sodium 138 Potassium 3.4 Chloride 102 Carbon Dioxide 28 Anion Gap 11 L BUN 13 Creatinine 0.69 Estim Creat Clear Calc 155.9 Estimated GFR > 60 Random Glucose 116 H Calcium 9.2 Total Bilirubin 0.7 AST 27 ALT 32 Alkaline Phosphatase 58 Total Protein 7.8 Albumin 4.3 Progress Note: A&P Assessment and plan (1) Chest pain: Status: Acute (2) Elevated troponin: Status: Acute Plan In the echocardiogram, LVEF 58%. Mild left ventricular hypertrophy. Otherwise unremarkable. In the exercise stress test yesterday, he was able to exercise for 8.6 METS on Ismael protocol and reached 83% target heart rate no chest pain. No EKG evidence of ischemia. Chest CTA, no pulmonary emboli. Stable metallic density with streak artifact in the right neck. Troponin levels are 54 and 53. Slightly elevated but flat. Echocardiogram 2020-LVEF 50%. Mild LVH. Mildly dilated RV with preserved function. Mild TR. In another location, mention of dilated aortic root at 4.1 cm. Stress test 2020-Ismael 9 minutes, no angina or EKG changes and normal perfusion. EF was 43%. Overall, atypical chest pain, previous hospitalizations for similar presentation with chest pains/troponin leak and presumption of myocarditis and stated normal coronaries around 10 years ago by catheterization. Current symptoms are again atypical. Currently, he is pain-free. Discharge planning and we will get a coronary CTA as outpatient. Follow up will be arranged. Time Spent With Patient Time: Total time managing care of this patient today ____ minutes. Progress Note: Quality Stroke Does the patient have a stroke diagnosis?: No Procedures Date of Service Date of Service: 08/14/25
--- NOTE | 2025-08-14 10:58 | P.DS_ITS ---
DS: Providers Provider Date of Service: 08/14/25 Date of admission: 08/13/25 05:56 Date of discharge: 08/14/25 Primary care physician: Kathy Jennings MD Consults: 08/13/25 05:56 Consult to Cardiology Routine Consulting Provider: [facility] [place] [facility] Reason for consultation: chest pain DS: Diagnosis Discharge Diagnosis (1) Chest pain: Status: Acute (2) Elevated troponin: Status: Acute DS: Summary Hospital Course Hospital Course: 55-year-old male with a past medical history of HTN, HLD, dm, CAD status post PCI, colostomy; presented to the hospital today with a chief complaint of chest pain. PRESENTATION presented to the hospital today with a chief complaint of chest pain. Patient reports that since yesterday he has been having intermittent episodes of chest pain; denies any SOB nausea vomiting or diaphoresis. Denies any chest pain at the time of my interview. Denies any recent travel or sick contacts. Review of all other systems is negative except mentioned above ER course: Per ER team, patient's EKG was nonischemic. Patient is chest pain-free. Troponin 53--54. CTA chest showed no evidence of PE. PROBLEM LIST Chest pain Known history of CAD Chest pain-free throughout admission Patient not on aspirin given history of hemoptysis-was taken off aspirin by his first assist per report Continue home statin Sublingual nitroglycerin p.r.n. Troponins plateaued (50's) Cardiology evaluated the patient; recommendations greatly appreciated. Echocardiography performed revealing LVEF 58%, mild left ventricular hypertrophy without clinically significant valvulopathy. Exercise stress test performed yesterday, performed 8.6 METS without chest pain Impression of atypical chest pain, ruled out for ACS. Outpatient coronary CTA is plan Plan for follow up with Cardiology outpatient Status at Discharge Functional status at discharge: independent ambulation Overall status at discharge: patient is back to baseline Time Attestation Total time managing care of this patient today: 35 mintues. Discharge Coordination Time (in mins): 35 Quality: Safe Use of Opioids Does Pt have an Active Cancer Diagnosis on the Problem List?: No Quality: Stroke Does the patient have a stroke diagnosis?: No Physical Exam Exam: Exam: General: A&O x3, oriented to time place person and situation, comfortable, no pain Cardiac: S1, S2 auscultated with no S3/4, no MRG. Well perfused. Respiratory: Normal breath sounds auscultated throughout all lung zones, without wheezing, rales. Normal rate. GI/ : No abdominal pain on palpation, no masses or distentions. Colostomy in place. MSK: Normal ambulation without pain at bony prominences or musculature Neurological: Normal neurological examination on overview, without obvious CN II-XII abnormalities. Vital Signs: Vital Signs: Last Vital Signs Temp 97.6 F 08/14/25 08:00 Pulse 71 08/14/25 08:00 Resp 19 08/14/25 08:00 BP 137/78 08/14/25 08:00 Pulse Ox 93 08/14/25 08:00 O2 Del Method Room Air 08/14/25 08:00 BMI result Body Mass Index 33.3 DS: Data Data Completed and Pending Completed studies during hospitalization [Text1]: Procedures Bypass Descending Colon to Cutaneous, Open Approach (03/08/25) Introduction of Anesthetic Agent into Peripheral Nerves and Plexi, Percutaneous Approach (03/08/25) Resection of Sigmoid Colon, Open Approach (03/08/25) Labs on day of discharge: Laboratory Results - last 24 hr 08/14/25 08/14/25 07:23 07:24 WBC 5.3 RBC 5.48 Hgb 16.0 Hct 46.6 MCV 85.0 MCH 29.2 MCHC 34.3 RDW 12.6 Plt Count 269 MPV 10.8 Immature Gran % (Auto) 0.2 Neut % (Auto) 50.1 Lymph % (Auto) 34.8 [place] % (Auto) 11.4 H Eos % (Auto) 2.2 Baso % (Auto) 1.3 Lymph # (Auto) 1.9 [place] # (Auto) 0.6 Eos # (Auto) 0.1 Baso # (Auto) 0.1 Abs Immat Gran (auto) 0.01 Absolute Neuts (auto) 2.7 Absolute Nucleated RBC 0.000 Nucleated RBC % (auto) 0.0 Sodium 138 Potassium 3.4 Chloride 102 Carbon Dioxide 28 Anion Gap 11 L BUN 13 Creatinine 0.69 Estim Creat Clear Calc 155.9 Estimated GFR > 60 Random Glucose 116 H Calcium 9.2 Total Bilirubin 0.7 AST 27 ALT 32 Alkaline Phosphatase 58 Total Protein 7.8 Albumin 4.3 Discharge Plan Discharge Anticipated Discharge Date/Time: 08/14/25 11:08 Patient Disposition: Home, Self-Care Discharge Diagnosis: Chest pain rule out Referrals: Kathy Hair MD [Primary Care Provider, Internal Medicine] - 1 Week Discharge Medications: Continued metoprolol succinate 25 mg tablet extended release 24 hr 25 mg PO DAILY Qty: 30 0RF tadalafil [Cialis] 10 mg tablet 10 mg PO DAILY PRN (Reason: Sexual Activity) [id number]-wtpxxgftdgepy-vbjs [Fioricet] 50-300-40 mg Capsule 1 cap PO Q4-6H PRN (Reason: Headache) lisinopril 20 mg Tablet 20 mg PO DAILY hydrochlorothiazide 12.5 mg Tablet 12.5 mg PO DAILY docusate sodium [Colace] 100 mg capsule 100 mg PO DAILY pravastatin 40 mg tablet 40 mg PO BEDTIME Discharge Orders: Discharge Order (Routine); Ordered 08/14/25 Ordered By: Carly Velasquez Diet: Advance to usual diet Activity on Discharge: As tolerated Stand Alone Forms: Patient Portal Discharge page Print Language: Sammarinese Care Plan Goals: As above Health Concerns: As above Plan of Treatment: Follow up with Cardiology in outpatient setting Follow up with PCP within 1 week of discharge Follow up for CT coronary artery in outpatient setting as coordinated by Cardiology Assessment: Hemodynamically stable patient, admitted to hospital for chest pain rule out, atypical chest pain present. Flat troponin, -ve stress test exercise and normal ECHO
[2025-08-14 12:00] VITALS: BP 155/80; PULSE 87; RESP 19; TEMP 36.2; O2SAT 96
--- NOTE | 2025-08-14 13:17 | MHC.CM.PN ---
PT CLEARED TO DC HOME TODAY WITH NO SERVICES, PT TO ARRANGE HIS OWN TRANSPORT
== END 2025-08-14 13:33 | disposition home or self-care (01) ==
LOC: HO.ED 05:22 → HO.EDOVER 06:24 → HO.IMC 07:47
PROVIDERS: Physician Assistant; Admitting Provider Hospitalist; Emergency Provider Emergency Medicine; PCP Internal Medicine; Visit Provider Hospitalist
DX: R07.9 Chest pain, unspecified (principal); R79.89 Other specified abnormal findings of blood chemistry; I10 Essential (primary) hypertension; E78.5 Hyperlipidemia, unspecified; E11.9 Type 2 diabetes mellitus without complications; I25.10 Atherosclerotic heart disease of native coronary artery without angina pectoris; R94.31 Abnormal electrocardiogram [ECG] [EKG]; K21.9 Gastro-esophageal reflux disease without esophagitis; Z79.899 Other long term (current) drug therapy
CPT/HCPCS: 36415; 71046; 71275; 80048; 80053; 84484; 85025; 93005; 93017; 93306; 96372; 99222; 99285; J1650; Q9967

== ENCOUNTER → 2025-08-13 00:55 | Outpatient (BNV) | payer MEDICAID, SELFPAY | PROVIDERS: PCP Internal Medicine; Visit Provider Student in an Organized Health Care Education/Training Program | DX: R07.9 Chest pain, unspecified (principal); R09.1 Pleurisy | CPT/HCPCS: 71046; 71275 ==

== ENCOUNTER → 2025-08-13 05:56 | Outpatient (BNV) | payer MEDICAID, SELFPAY | PROVIDERS: Admitting Provider Hospitalist; Emergency Provider Emergency Medicine; PCP Internal Medicine; Visit Provider Hospitalist | DX: R07.89 Other chest pain (principal) | CPT/HCPCS: 99222; 99358 ==

== ENCOUNTER → 2025-08-13 05:56 | Outpatient (BNV) | payer MEDICAID, SELFPAY | PROVIDERS: Admitting Provider Hospitalist; Emergency Provider Emergency Medicine; PCP Internal Medicine; Visit Provider Internal Medicine | DX: R07.89 Other chest pain (principal); R79.89 Other specified abnormal findings of blood chemistry | CPT/HCPCS: 99233 ==

== ENCOUNTER 2025-09-08 10:51 | Outpatient (AMB) | payer MEDICAID, SELFPAY ==
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
[2025-09-08 11:21] VITALS: BP 136/82; PULSE 62; BMI 33.9
--- OUTSIDE RECORDS SUMMARY | 2025-09-08 14:05 | XMS_ITS | Encounter Summary ---
Author Organization [employer] Address [address] [place] [address] Care Team Providers Care Molder Vacuum Name Role Phone Kathy Hair MD Primary Care Provide r Reason for Visit * Reason Comments Med Refill Encounter Details Date Type Department Care Team (Late st Contact Info) Description 07/15/2024 Refill [facility] [address] [place] [phone] Kenan Mays MD [address] [place] [phone] Essential hypertension Social History Tobacco Use Types [...] 09/28/2025 9:15 AM EST Office Visit [facility] [address] [place] [phone] Kathy Hair MD [address] [place] [phone] documented as of this encounter Visit Diagnoses Diagnosis Essential hypertension Unspecified essential hypertension documented in this encounter Care Teams Molder Vacuum Relationship Specialty Start Date End Date Kathy Hair MD [address] [place] [phone] PCP - General Internal Medicine 09/15/24 Maikel RODRIGUEZ 04/11/25 documented as of this encounter
--- OUTSIDE RECORDS SUMMARY | 2025-09-08 14:05 | XMS_ITS | Encounter Summary ---
Author Organization [employer] Address [address] [place] [address] Care Team Providers Care Park Services Specialist Name Role Phone Kathy Hair MD Primary Care Provide r Reason for Visit * Reason Comments Med Refill Encounter Details Date Type Department Care Team (Late Contact Info) Description 01/10/2024 Refill [facility] [address] [place] [address] Annelise Joseph FNP [address] [place] [address] Social History Tobacco Use Types Packs/Day Years [...] Description 09/28/2025 9:15 AM EST Office Visit [facility] [address] [place] [phone] Kathy Hair MD [address] [place] [phone] documented as of this encounter Visit Diagnoses Not on filedocumented in this encounter Care Teams Park Services Specialist Relationship Specialty Start Date End Date Kathy Hair MD [address] [place] [phone] PCP - General Internal Medicine 09/15/24 Maikel RODRIGUEZ 04/11/25 documented as of this encounter
--- OUTSIDE RECORDS SUMMARY | 2025-09-08 14:05 | XMS_ITS | Encounter Summary ---
Author Organization [employer] Address [address] [place] [address] Care Team Providers Care Mineral Mixer Name Role Phone Kathy Hair MD Primary Care Provide r Reason for Visit * Reason Comments Med Refill Encounter Details Date Type Department Care Team (Late Contact Info) Description 06/22/2024 Refill [facility] [address] [place] [phone] Name, MD Wenceslao [address] [place] [phone] Social History Tobacco Use Types Packs/Day Years [...] Description 09/28/2025 9:15 AM EST Office Visit [facility] [address] [place] [phone] Kathy Hair MD [address] [place] [phone] documented as of this encounter Visit Diagnoses Not on filedocumented in this encounter Care Teams Mineral Mixer Relationship Specialty Start Date End Date Kathy Hair MD [address] [place] [phone] PCP - General Internal Medicine 09/15/24 Maikel RODRIGUEZ 04/11/25 documented as of this encounter
--- OUTSIDE RECORDS SUMMARY | 2025-09-08 14:05 | XMS_ITS | Encounter Summary ---
Author Organization [employer] Address [address] [place] [address] Care Team Providers Care Door To Door Salesperson Name Role Phone Kathy Hair MD Primary Care Provide r Reason for Visit * Reason Comments Med Refill Encounter Details Date Type Department Care Team (Late st Contact Info) Description 04/21/2024 Refill [facility] [address] [place] [address] [phone] Name, MD Wenceslao [address] [place] [phone] Essential hypertension Social History Tobacco Use Types [...] 9:15 AM EST Office Visit [facility] [address] [place] [phone] Kathy Hair MD [address] [place] [address] [phone] documented as of this encounter Visit Diagnoses Diagnosis Essential hypertension Unspecified essential hypertension documented in this encounter Care Teams Door To Door Salesperson Relationship Specialty Start Date End Date Kathy Hair MD [address] [place] [phone] PCP - General Internal Medicine 09/15/24 Maikel RODRIGUEZ 04/11/25 documented as of this encounter
--- OUTSIDE RECORDS SUMMARY | 2025-09-08 14:05 | XMS_ITS | Encounter Summary ---
Author Organization [employer] Address [address] [place] [address] Care Team Providers Care Optics Manufacturing Technician Name Role Phone Kathy Hair MD Primary Care Provide r Reason for Visit * Reason Comments Med Refill Encounter Details Date Type Department Care Team (Late st Contact Info) Description 07/15/2024 Refill [facility] [address] [place] [phone] Kenan Mays MD [address] [place] [address] Essential hypertension Social History Tobacco Use Types [...] Description 09/28/2025 9:15 AM EST Office Visit [facility] [address] [place] [phone] Kathy Hair MD [address] [place] [phone] documented as of this encounter Visit Diagnoses Diagnosis Essential hypertension Unspecified essential hypertension documented in this encounter Care Teams Optics Manufacturing Technician Relationship Specialty Start Date End Date Kathy Hair MD [address] [place] [phone] PCP - General Internal Medicine 09/15/24 Maikel RODRIGUEZ 04/11/25 documented as of this encounter
--- OUTSIDE RECORDS SUMMARY | 2025-09-08 14:05 | XMS_ITS | Clinical Summary ---
Author Organization [employer] Address [address] [place] [address] Care Team Providers Care Primary School Teacher Name Role Phone Kathy Hair MD [...] 4 Active Blood Glucose Monitoring Suppl (FreeStyle [place] Lite) w/Device kitIndications:Ne wly diagnosed diabetes (HCC) [...] 40 MG tabletIndications :Coronary artery disease involving [place] coronary artery of [place] heart without angina pectoris Take 1 tablet [...] with specialist Coronary artery disease invo lving [place] coronary artery of [place] heart without angina pectoris 04/14/2025 Assessment & Plan (04/14/2025 11:20 AM EDT): Continue to follow-up with cardiology Today I added pravastatin 40 mg daily, patient did not tolerate atorvastatin he explained he just did not feel well taking the medication I decided to reduce the doses of lisinopril and hydrochlorothiazide for blood pressure but to continue metoprolol 25 mg daily S/P colostomy ([facility]) 04/14/2025 Assessment & Plan (04/23/2025 1:16 PM [...] History of renal carcinoma 10/02/2023 History of IA (myocardial infarction) 10/02/2023 Resolved Problems Problem Noted [...] Provider, Generic External Data 08/11/2025 Results Follow-Up [address] [address] Kathy Hair MD [place] Esophagus Barium Swallow w/Air 08/11/2025 Orders Only [address] [address] Kathy Hair MD 07/20/2025 Patient Outreach [address] [address] Kathy Hair MD Pre-visit Planning (Pre visit planning unable to LVM ) 07/13/[address] [address] Kathy Hair MD FMLA Form (I called the patient, regarding a Supplementary Claim Report, from [employer]. I reached a voicemail, and left a message asking him to return my call at extension [phone], or he may reach the forms nurse at ext [phone].) 06/14/2025 Orders Only GENERIC EXTERNAL DATA DEPARTMENT Provider, Generic External Data 06/10/[address] [address] Kathy Hair MD from Last 3 Months [...] Description 09/28/2025 9:15 AM EST Office Visit [facility] [address] [place], [place] [phone] Kathy Hair MD [address] [place], [place] [phone] Health Maintenance Due Date Last Done Comments [...] Procedure Name Priority Date/Time Associated Diagnosis Comments CTA CHEST PE PROTOCAL Routine 08/13/2025 4:54 AM EST HIGH SENSITIVITY TROPONIN I Routine 08/13/2025 3:59 AM EST HIGH SENSITIVITY TROPONIN I Routine 08/13/2025 1:28 AM EST BASIC METABOLIC PANEL Routine 08/13/2025 1:28 AM EST CBC WITH AUTO DIFFERENTIAL Routine 08/13/2025 1:28 [...] Recently Relevant to Health Maintenance Results * CTA Chest PE Protocal (08/13/2025 4:54 AM EST) Anatomical Region Laterality Modality Body, Chest Computed Tomogra phy 08/13/2025 4:54 AM EST Narrative 08/13/2025 4:56 AM EST [place] [address] CT Scan Report Signed Patient: Jai Herrera MR#: [id number] 3483 : 1970 Acct:[id number] Age/Sex: 55 / M ADM Date: 08/13/25 Loc: HO.ED Attending Dr: Ordering Physician: Denis Desai PA-C Date of Service: 08/13/25 Procedure(s): CT angio chest PE protocol Accession Number(s): [id number] cc: Kathy Hair MD; Denis Desai PA-C Report Number: [id number]: Total DLP = 0.00 mGy-cm Reason for Exam: Chest Pain; Pleurisy; Recent Travel; Elevated Trop CLINICAL HISTORY: Chest Pain; Pleurisy; Recent Travel; Elevated Trop CT angiography chest with contrast. 3D Postprocessing. Comparison: CR - XR CHEST 2V - 08/13/25 00:[address]/REG/SR - ABDOMEN ABD_PELVIS_IV_CONTRAST (ADULT) - 03/18/25 21:[address]/SR - CT CHEST WO IV CON - 11/13/24 07:21 EST Findings: The heart size is normal. RV/LV ratio is normal. The thoracic aorta is normal caliber. No pulmonary artery filling defects. The visualized thyroid and mediastinum are unremarkable. Stable metallic density with streak artifact in the right neck. Chronic posttraumatic deformity of the ribs in the right mid chest associated with pleural thickening and calcifications. No focal consolidation, pleural effusion, or pneumothorax. Dense intraluminal contrast within the gastrointestinal tract results in significant streak artifact throughout the abdomen, limiting evaluation. The visualized abdominal structures are grossly unremarkable. Bilateral gynecomastia. Chronic right rib deformities. No acute fractures. IMPRESSION: No pulmonary emboli Chronic findings, as above This document has been electronically signed by: Modesto Win MD on 08/13/2025 04:54:36 Dictated By: Modesto Win MD Signed By: <Electronically signed by Modesto Win MD in OV> 08/13/255 DD/ 3 TD/TT: 08/13/25453 Jtac: Procedure Note Donotuseinterpreter, Image - 08/13/[address] [place] [address] [address] Scan Report Signed Patient: Jerrell Herrera#: [id number] : 1970Acct:[id number] Age/Sex: 55 / MADM Date: 08/13/25 Loc: HO.ED Attending Dr: Ordering Physician: Denis Desai PA-C Date of Service: 08/13/25 Procedure(s): CT angio chest PE protocol Accession Number(s): [id number] cc: Kathy Hair MD; Denis Desai PA-C Report Number: [id number]: Total DLP = 0.00 mGy-cm Reason for Exam: Chest Pain; Pleurisy; Recent Travel; Elevated Trop CLINICAL HISTORY: Chest Pain; Pleurisy; Recent Travel; Elevated Trop CT angiography chest with contrast. 3D Postprocessing. Comparison: CR - XR CHEST 2V - 08/13/25 00:[address]/REG/SR - ABDOMEN ABD_PELVIS_IV_CONTRAST (ADULT) - 03/18/25 21:[address]/SR - CT CHEST WO IV CON - 11/13/24 07:21 EST Findings: The heart size is normal. RV/LV ratio is normal. The thoracic aorta is normal caliber. No pulmonary artery filling defects. The visualized thyroid and mediastinum are unremarkable. Stable metallic density with streak artifact in the right neck. Chronic posttraumatic deformity of the ribs in the right mid chest associated with pleural thickening and calcifications. No focal consolidation, pleural effusion, or pneumothorax. Dense intraluminal contrast within the gastrointestinal tract results in significant streak artifact throughout the abdomen, limiting evaluation. The visualized abdominal structures are grossly unremarkable. Bilateral gynecomastia. Chronic right rib deformities. No acute fractures. IMPRESSION: No pulmonary emboli Chronic findings, as above This document has been electronically signed by: Modesto Win MD on 08/13/2025 04:54:36 Dictated By: Modesto Win MD Signed By: <Electronically signed by Modesto Win MD in OV> 08/13/25454 DD/ 3 TD/TT: 08/13/25453 Jtac: [facility] External Provider IMG CT PROCEDURES Final Result * (ABNORMAL) High Sensitivity Troponin I (08/13/2025 3:59 AM EST) Only the most recent of2 resultswithin the time period is included. TROPONIN I HIGH SENSITIVITY 53.0(H) <3.5 - 35.0 ng/L [facility] Comment:The López high sens itivity Troponin-I results should beused in conjunction with other diagnostic information suchas ECG, clinical observations and information, and patientsymptoms to aid in the diagnosis of IA. 08/13/2025 3:59 AM EST 08/13/2025 4:03 AM EST Generic External Data Provider LAB BLOOD ORDERAB LES Final Result [facility] [address] [place], [place] [phone] * (ABNORMAL) CBC auto differential (08/13/2025 1:28 AM EST) Only the most recent of2 resultswithin the time period is included. White Blood Count 5.6 4.8 - 10.8 X10*3/uL [facility] Red Blood Count 5.17 4.60 - 5.80 X10*6/uL [facility] Hemoglobin 14.9 14.0 - 18.0 g/dl [facility] Hematocrit 43.6 42.0 - 52.0 % [facility] Mean Corpuscular Volume 84.3 80.0 - 98.0 fL [facility] Mean Corpuscular Hemoglobin 28.8 27.0 - 33.0 pg [facility] Mean Corpuscular HGB Conc 34.2 31.0 - 36.0 g/dl [facility] Red Cell Distribution Width 12.7 11.0 - 16.0 % [facility] Platelet Count 250 160 - 400 X10*3/uL [facility] Mean Platelet Volume 10.6 9.4 - 12.4 fL [facility] Neutrophils Percent Auto 48.9 45 - 73 % [facility] Imm Gran Pct Auto 0.0 0.0 - 0.4 % [facility] Lymphocytes Percent Auto 34.4 20 - 40 % [facility] Monocytes Percent Auto 13.2(H) 2 - 11 % [facility] Eosinophils Percent Auto 2.2 0 - 4 % [facility] Basophils Percent Auto 1.3 0 - 2 % [facility] NRBC Pct Auto 0.0 0.0 - 0.2 /100WBC [facility] Neutrophils Absolute Auto 2.7 2.0 - 8.3 x10*3/uL [facility] Imm Gran Abs Auto 0.00 0.00 - 0.03 X10*3/uL [facility] Lymphocytes Absolute Auto 1.9 1.2 - 4.9 X10*3/uL [facility] Monocytes Absolute Auto 0.7 0.1 - 1.2 X10*3/uL [facility] Eosinophils Absolute Auto 0.1 0.0 - 0.4 X10*3/uL [facility] Basophils Absolute Auto 0.1 0.0 - 0.2 X10*3/uL [facility] NRBC Abs Auto 0.000 0.0 - 0.012 X10*3/uL [facility] 08/13/2025 1:28 AM EST 08/13/2025 1:34 AM EST us Generic External Data Provider LAB BLOOD ORDERAB LES Final Result [facility] [address] [place] [phone] * (ABNORMAL) Basic Metabolic Panel (08/13/2025 1:28 AM EST) Sodium 139 135 - 145 mmol/L [facility] Potassium 3.5 3.3 - 5.1 mmol/L [facility] Chloride 104 96 - 108 mmol/L [facility] Carbon Dioxide 27 22 - 29 mmol/L [facility] Anion Gap 12 12 - 20 [facility] Urea Nitrogen (BUN) 18(H) 9 - 16 mg/dL [facility] Creatinine, Serum 0.74 0.5 - 1.4 mg/dL [facility] Creatinine Clr Calc Pharmacy 154.6 [facility] Comment:eGFR (calculated fro m the MDRD study equation) and eCrCl(calculated from the Cockcroft-Gault equation) are based ondifferent parameters and may not yield comparable results.If eCrCl result is absurd, please check patient'sheight/weight. Estimated Glomerular Filt Rate >60 [facility] Comment:Chronic Kidney Disea se: Estimated GFR < 60 mL/min/1.46k6Ueiiag Kidney Disease: Estimated GFR < 15 mL/min/1.73m2 Glucose 132(H) 60 - 115 mg/dL [facility] Calcium 9.0 8.4 - 10.2 mg/dL [facility] 08/13/2025 1:28 AM EST 08/13/2025 1:34 AM EST us Generic External Data Provider LAB BLOOD ORDERAB LES Final Result Performing Organization Address City/State/[facility] Co de Phone Number [facility] [address] [place] [phone] * XR Chest 2 Views (08/13/2025 1:23 AM EST) Anatomical Region Laterality Modality Chest Radiographic Peg ging 08/13/2025 1:23 AM EST Narrative 08/13/2025 1:26 AM EST [address] [address] XRay Report Signed Patient: Jai Herrera MR#: [id number] 3483 : 1970 Acct:[id number] Age/Sex: 55 / M ADM Date: 08/13/25 Loc: .ED Attending Dr: Ordering Physician: Generic ED Physician Date of Service: 08/13/25 Procedure(s): XR chest 2V Accession Number(s): [id number] cc: Kathy Hair MD; Generic ED Physician [...] in OV> 08/13/25123 DD/ 2 TD/TT: 08/13/25122 Jtac: Procedure Note Donotuseinterpreter, Image - 08/13/[address] [address] XRay Report Signed Patient: Sukh HerreraR#: [id number] : 1970Acct:[id number] Age/Sex: 55 / MADM Date: 08/13/25 Loc: HO.ED Attending Dr: Ordering Physician: Generic ED Physician Date of Service: 08/13/25 Procedure(s): XR chest 2V Accession Number(s): [id number] cc: Kathy Hair MD; Generic ED Physician [...] MD in OV> 08/13/25123 DD/ 2 TD/TT: 08/13/25 012 Jtac: [facility] External Provider IMG XR PROCEDURES Final Result * [place] Esophagus Barium Swallow w/Air (08/11/2025 8:36 AM EST) Anatomical Region Laterality Modality Head, Neck Radiographic Peg ging 08/11/2025 8:36 AM EST Narrative 08/11/2025 9:18 AM EST [address] [address] Fluoroscopy Report Signed Patient: Jai Herrera MR#: [id number] 3483 : 1970 Acct:[id number] Age/Sex: 55 / M ADM Date: 08/11/25 Loc: HO.XRAY Attending Dr: Kathy Jennings MD Ordering Physician: Kathy Hair MD Date of Service: 08/11/25 Procedure(s): FL barium swallow with air Accession Number(s): [id number] cc: Kathy Hair MD Reason for Exam: [...] 08/11/25 0916 DD/ 0836 TD/TT: 08/11/25 0852 Jtac: JOELLEN Procedure Note Donotuseinterpreter, Image - 08/11/[address] [address] Fluoroscopy Report Signed Patient: Jerrell Herrera#: [id number] : 1970Acct:[id number] Age/Sex: 55 / MADM Date: 08/11/25 Loc: MIAN Attending Dr: Kathy Jennings MD Ordering Physician: Kathy Hair MD Date of Service: 08/11/25 Procedure(s): FL barium swallow with air Accession Number(s): [id number] cc: Kathy Hair MD Reason for Exam: [...] OV> 08/11/25 0916 DD/ TD/TT: 08/11/25 0852 Jtac: JOELLEN Kathy Jennings MD IMG FLUOROSCOPY DANIELLA JOHNSON Edited Result - Final * Influenza A B2 ID NOW (López) (06/14/2025 1:22 PM EDT) IDNOW SERIAL# [id number] [facility] Influenza A Negative Negative [facility] Influenza B2 Negative Negative [facility] Influenza A B2 Note See Note [facility] Comment:The López ID NOW In [...] LAB MICROBIOLOGY - GENERAL ORDERABLES Final Result Performing Organization Address [facility]/ZIP Co de Phone Number [facility] [address] [place] [address] [phone] * COVID-19 ID NOW (LÓPEZ) (06/14/2025 1:22 PM EDT) IDNOW SERIAL# [id number] [facility] COVID-19 TEST Negative Negative [facility] COVID-19 NOTE See Note [facility] Comment: Results are for the identification of SARS-CoV2 RNA. TheSARS-CoV2 RNA is generally detectable in respiratory samplesduring the acute phase of infection. Positive results areindicative of the presence of SARS-CoV-2 RNA; clinicalcorrelation with patient history and other diagnosticinformation is necessary to determine patient infectionstatus. Positive results do not rule out bacterial infectionor co- infection with other viruses.Testing facilities within the [facility] and itsterritories are required to report all [...] use by authorized laboratories.Testing performed on the López ID NOW utilizing NAAT. 06/14/2025 1:22 PM EDT 06/14/2025 1:26 PM EDT us Generic External Data Provider LAB MOLECULAR MARCOS GNOSTICS ORDERABLES Final Result Performing Organization Address City/[facility]/ZIP Co de Phone Number [facility] [address] [place] [phone] * Sed Rate by Modified Sabine (06/14/2025 1:22 PM EDT) Pathologist [facility] Erythrocyte Sedimentation Rate 7 0 - 15 MM/HR [facility] Comment:Patients with polycy themia and many hemoglobin abnormalitiesmay have depressed sed rates whereas patients with anemiamay have elevated sed rates. 06/14/2025 1:22 PM EDT 06/14/2025 4:15 PM EDT Generic External Data Provider LAB BLOOD ORDERAB LES Final Result Performing Organization Address [facility]/ZIP Co de Phone Number [facility] [address] [place] [phone] * Magnesium (06/14/2025 1:22 PM EDT) [facility] Magnesium 2.0 1.6 - 2.6 mg/dL [facility] 06/14/2025 1:22 PM EDT 06/14/2025 1:26 PM EDT [facility] External Data Provider LAB BLOOD ORDERAB LES Final Result Performing Organization Address [facility] de Phone Number [facility] [address] [place] [phone] * (ABNORMAL) Comprehensive Metabolic Panel (06/14/2025 1:22 PM EDT) [facility] Sodium 140 135 - 145 mmol/L [facility] Potassium 3.8 3.3 - 5.1 mmol/L [facility] Chloride 102 96 - 108 mmol/L [facility] Carbon Dioxide 32(H) 22 - 29 mmol/L [facility] Anion Gap 10(L) 12 - 20 [facility] Urea Nitrogen (BUN) 13 9 - 16 mg/dL [facility] Creatinine, Serum 0.75 0.5 - 1.4 mg/dL [facility] Creatinine Clr Calc Pharmacy 117.8 [facility] Comment:eGFR (calculated fro m the MDRD study equation) and eCrCl(calculated from the Cockcroft-Gault equation) are based ondifferent parameters and may not yield comparable results.If eCrCl result is absurd, please check patient'sheight/weight. Estimated Glomerular Filt Rate >60 [facility] Comment:Chronic Kidney Disea se: Estimated GFR < 60 mL/min/1.52s5Qotoem Kidney Disease: Estimated GFR < 15 mL/min/1.73m2 Glucose 104 60 - 115 mg/dL [facility] Calcium 9.3 8.4 - 10.2 mg/dL [facility] Bilirubin, Total 0.4 0.0 - 1.0 mg/dL [facility] Aspartate Amino Transferase 26 5 - 37 U/L [facility] Alanine Aminotransferase 37 0 - 40 U/L [facility] Total Protein 7.4 6.5 - 8.0 g/dL [facility] Albumin Level 4.0 3.5 - 5.0 g/dL [facility] Alkaline Phosphatase 56 39 - 117 U/L [facility] 06/14/2025 1:22 PM EDT 06/14/2025 1:26 PM EDT us Generic External Data Provider LAB BLOOD ORDERAB LES Final Result Performing Organization Address City/State/[facility] Co de Phone Number [facility] [address] [place] [phone] * (ABNORMAL) POCT HGB A1C (04/23/2025 10:54 AM EDT) Hemoglobin A1C 6.1(A) 4.0 - 5.7 % Blood 04/23/2025 10:5 4 AM EDT us Kathy Jennings MD POINT OF CARE TEST EN TER/EDIT ORDERABLES Final Result * Albumin, Random Urine W/Creatinine (04/14/2025 10:21 AM EDT) Creatinine, Urine 136.09 mg/dL [facility] Microalbumin Urine 8.0 mg/L [facility] Microalbum Creatinine Ratio Ur 5.8 <30 ug/mg cr [facility] Comment:Albumin/Creatinine R atio Reference Ranges: Normal: < 30 ug/mg creatinine Microalbuminuria: 30 - 300 ug/mg creatinineClinical Albuminuria: > 300 ug/mg creatinine Urine (Urine, Random) 04/14/2025 10:21 AM EDT 04/14/2025 11:11 AM EDT us Kathy Jennings MD LAB URINE ORDERABLES Final Result [facility] [address] [place] [phone] * (ABNORMAL) Lipid Panel, Standard (04/14/2025 10:21 AM EDT) Triglycerides 169(H) <150 mg/dL [facility] Comment:Desirable Triglyceri de: less than 150 mg/dLBorderline High Triglyceride 150-199 mg/dLHigh Triglyceride: 200-499 mg/dLVery High Triglyceride: greater than or equal to 5OO mg/dL Cholesterol 215(H) <200 mg/dL [facility] Comment:Desirable Cholestero l: less than 200 mg/dLBorderline High Cholesterol: 200-239 mg/dLHigh Cholesterol: greater than 239 mg/dL LDL Cholesterol Calculated 142(H) <100 mg/dL [facility] Comment:Desirable LDL: less than 100 mg/dLNear Optimal/Above Optimal LDL: 110- 129 mg/dLBorderline High LDL: 130-159 mg/dLHigh LDL: 160-189 mg/dLVery High LDL: greater than or equal to 190 mg/dL HDL Cholesterol 40(L) >40 mg/dL [facility] Comment:Desirable HDL: great er than 40 mg/dL Note: This HDL assay may give artificially low results in patients with liver disease. Blood Venous blood specimen / Unknown 04/14/2025 10:21 AM EDT 04/14/2025 11:24 AM EDT us Kathy Jennings MD LAB BLOOD ORDERABLES Final Result Performing Organization Address [facility]/ZIP Co de Phone Number [facility] [address] [place] [phone] * Hepatitis C Antibody with Reflex to HCV, RNA, Quantitative, Real-Time PCR (01/22/2025 11:06 AM EDT) Hepatitis C Antibody Nonreactive Nonreactive [facility] Comment:Antibodies to HCV no t detected; does not exclude early acuteHCV infection. Blood Venous blood specimen / Unknown 01/22/2025 11:06 AM EDT 01/22/2025 4:04 PM EDT us Ward Dorsey MD LAB BLOOD ORDERABLES Final Resul t Performing Organization Address [facility] Co de Phone Number [facility] [address] [place] [phone] * HIV-1/2 Antigen and Antibodies, Fourth Generation, with Reflexes (01/22/2025 11:06 AM EDT) HIV AB/AG Nonreactive Nonreactive [facility] Comment:HIV-1 p24 Ag and/or HIV-1/HIV-2 Ab not detected.A test result that is nonreactive does not exclude thepossibility of exposure to or infection with HIV-1 and/orHIV-2. Nonreactive results in this assay for individualswith prior exposure to HIV-1 and/or HIV-2 may be due toantigen and antibody levels that are below the limit ofdetection of this assay.The [employer] HIV Ag/Ab Combo assay result andsupplemental assay results should be interpreted inconjunction with the patient's clinical presentation,history and other laboratory results. If the results areinconsistent with clinical evidence, additional testing issuggested to confirm the result. Blood Venous blood specimen / Unknown 01/22/2025 11:06 AM EDT 01/22/2025 4:04 PM EDT us Ward Dorsey MD LAB BLOOD ORDERABLES Final Resul t [facility] [address] [place] [phone] from Last 3 Months or Most [...] chronic kidney disease 08/11/2025 Insurance [employer] [facility] C3 Care Teams Primary School Teacher Relationship Specialty Start Date End Date Kathy Hair MD [address] [place] [phone] PCP - General Internal Medicine 09/15/24 Maikel RODRIGUEZ 04/11/25
--- OUTSIDE RECORDS SUMMARY | 2025-09-08 14:06 | XMS_ITS | Encounter Summary ---
Author Organization [employer] Address [address] [place] [address] Care Team Providers Care Work Adjustment Instructor Name Role Phone Kathy Hair MD Primary Care Provide r Reason for Visit * Reason Comments Med Change Request Encounter Details Date Type Department Care Team ([facility] st Contact Info) Description 02/10/2025 Refill [facility] [address] [place] [address] Kenan Mays MD [address] [place] [address] Social History Tobacco Use Types Packs/Day Years [...] 9:15 AM EST Office Visit [facility] [address] [place] [phone] Kathy Hair MD [address] [place] [phone] documented as of this encounter Visit Diagnoses Not on filedocumented in this encounter Additional Health Concerns Assessment Noted Time PHQ-9 Depression Total Score: 0 09/15/20 10:07 AM EST documented as of this encounter Care Teams Work Adjustment Instructor Relationship Specialty Start Date End Date Kathy Hair MD [address] [place] [phone] PCP - General [facility] documented as of this encounter
--- OUTSIDE RECORDS SUMMARY | 2025-09-08 14:06 | XMS_ITS | Clinical Summary ---
Author Organization [facility] Address [address] [place] [address] Care Team Providers Care Tile Layer Helper Name Role Phone Disha Callejas MD Primary Care Provider [phone] Allergies No known active allergies Medications latanoprost [...] 06/16/2020, 09/30/2010, 09/30/2010 Procedures * Due to [place] [employer] law, this organization might not be sharing negative HIV tests. Procedure Name Priority Date/Time Associated Diagnosis Comments COMPREHENSIVE METABOLIC PANEL Routine 07/19/2021 2:56 AM EDT from Last 3 Months or Most Recently Relevant to Health Maintenance Results * Due to [place] [employer] law, this organization might not be sharing negative HIV tests. * (ABNORMAL) Comprehensive Metabolic Panel (07/19/2021 2:56 AM EDT) NA 136 135 - 145 mmol/L 07/19/2021 3:39 AM EDT [facility] K 3.9 3.5 - 5.3 mmol/L 07/19/2021 3:39 AM EDT [facility] Cl 103 97 - 110 mmol/L 07/19/2021 3:39 AM EDT [facility] CO2 25 24 - 32 mmol/L 07/19/2021 3:39 AM EDT [facility] Anion Gap 8 5 - 15 07/19/2021 3:39 AM EDT [facility] Glucose 138(H) 70 - 99 mg/dL 07/19/2021 3:39 AM EDT [facility] Creatinine 0.99 0.60 - 1.30 mg/dL 07/19/2021 3:39 AM EDT [facility] eGFR Non- 88(L) >=90 mL/min/BS A 07/19/2021 3:39 AM EDT [facility] eGFR >90 >=90 mL/min/BS A 07/19/2021 3:39 AM EDT [facility] Comment: Units = mL/min/1.73 m2 Glomerular Filtration Rate (GFR) is estimated based on the CKD-EPI Creatinine Equation (2009). Stage Description GFR 1 Normal >=90 mL/min/BSA 2 Mildly decreased GFR 60-89 mL/min/BSA 3 Moderately decreased GFR 30-59 mL/min/BSA 4 Severely decreased GFR 15-29 mL/min/BSA 5 Kidney Failure <15 mL/min/BSA Calcium 8.7 8.7 - 10.7 mg/dL 07/19/2021 3:39 AM EDT [facility] Total Protein 7.3 6.0 - 8.0 g/dL 07/19/2021 3:39 AM EDT [facility] Albumin 3.5 3.5 - 4.8 g/dL 07/19/2021 3:39 AM EDT [facility] Bilirubin, Total 0.2(L) 0.3 - 1.2 mg/dL 07/19/2021 3:39 AM EDT [facility] Alkaline Phosphatase 46 30 - 115 U/L 07/19/2021 3:39 AM EDT [facility] AST 13 10 - 40 U/L 07/19/2021 3:39 AM EDT [facility] ALT 16 10 - 40 U/L 07/19/2021 3:39 AM EDT [facility] BUN 29(H) 7 - 23 mg/dL 07/19/2021 3:39 AM EDT [facility] Blood Structure of peripheral vein / Unknown Venipuncture / Unknown 07/19/2021 2:56 AM EDT 07/19/2021 3:09 AM EDT us Marietta Wilhelm NP LAB BLOOD ORDERABLES Final Result [facility] [address] [place] [address], from Last 3 Months or Most Recently Relevant to Health Maintenance Insurance [facility] MEDICAID Advance Directives * Full Code (Latest Code Status on File) Date Activated Date Inactivated Comments 07/15/2021 3:20 AM 07/19/2021 5:11 PM Care Teams Tile Layer Helper Relationship Specialty Start Date End Date Disha Callejas MD PCP - General Family Medicine 04/27/20
--- OUTSIDE RECORDS SUMMARY | 2025-09-08 14:06 | XMS_ITS | Encounter Summary ---
Author Organization [facility] Address [address] [place] [address] Care Team Providers Care Ordnance Artificer Helper Name Role Phone Kathy Hair MD Primary Care Provide r Encounter Details Date Type Department Care Team (Late st Contact Info) Description 08/11/2025 Orders Only [facility] [address] [place], [place] [phone] Kathy Hair MD [address] [place], [place] [phone] Social History Tobacco Use Types Packs/Day Years [...] AM EST Office Visit [facility] [address] [place] [phone] Kathy Hair MD [address] [place] [phone] documented as of this encounter Goals Goal [...] AM EST Narrative 08/13/2025 1:26 AM EST [address] [address] XRay Report Signed Patient: Jai Herrera MR#: [id number] : 1970 Acct:[id number] Age/Sex: 55 / M ADM Date: 08/13/25 Loc: .ED Attending Dr: Ordering Physician: Generic ED Physician Date of Service: 08/13/25 Procedure(s): XR chest 2V Accession Number(s): [id number] cc: Kathy Hair MD; Generic ED Physician [...] in OV> 08/13/25123 DD/ 2 TD/TT: 08/13/25122 Fundraising Officer: Procedure Note Donotuseinterpreter, Image - 08/13/[address] [address] XRay Report Signed Patient: Sukh HerreraR#: [id number] : 1970Acct:[id number] Age/Sex: 55 / MADM Date: 08/13/25 Loc: HO.ED Attending Dr: Ordering Physician: Generic ED Physician Date of Service: 08/13/25 Procedure(s): XR chest 2V Accession Number(s): [id number] cc: Kathy Hair MD; Generic ED Physician [...] in OV> 08/13/25123 DD/ 2 TD/TT: 08/13/25122 Fundraising Officer: [facility] External Provider IMG XR PROCEDURES Final [...] documented as of this encounter Care Teams Ordnance Artificer Helper Relationship Specialty Start Date End Date Kathy Hair MD [address] [place] [phone] PCP - General Internal Medicine 09/15/24 Maikel RODRIGUEZ 04/11/25 documented as of this encounter
--- OUTSIDE RECORDS SUMMARY | 2025-09-08 14:06 | XMS_ITS | Encounter Summary ---
Author Organization [employer] Address [address] [place] [address] Care Team Providers Care Yard Inspector Name Role Phone Kathy Hair MD Primary Care Provide r Reason for Visit * Reason Onset Date Comments New Patient 06/28/2023 Encounter Details Date Type Department Care Team (Late st Contact Info) Description 06/28/2023 Telephone [facility] [address] [place] [address] [phone] Beny Renteria MD [address] [place], [place] [phone] New Patient Social History Tobacco Use Types [...] been transfer over to wait list for [employer]. EFFECTIVE SINCE 06/28/2023 documented in this encounter Plan of Treatment Upcoming Encounters Date Type Department Care Team (Late st Contact Info) Description 09/28/2025 9:15 AM EST Office Visit [facility] [address] [place] [phone] Kathy Hair MD [address] [place] [address] documented as of this encounter Visit Diagnoses Not on filedocumented in this encounter Care Teams Yard Inspector Relationship Specialty Start Date End Date Kathy Hair MD [address] [place] [address] PCP - General Internal Medicine 09/15/24 Maikel TINOCOA 04/11/25 documented as of this encounter
--- OUTSIDE RECORDS SUMMARY | 2025-09-08 14:06 | XMS_ITS | Encounter Summary ---
Author Organization [employer] Address [address] [place] [address] Care Team Providers Care Early Morning Babysitter Name Role Phone Kathy Hair MD Primary Care Provide r Reason for Visit * Reason Comments Med Refill Encounter Details Date Type Department Care Team (Late st Contact Info) Description 07/15/2024 Refill [facility] [address] [place] [phone] Kenan Mays MD [address] [place] [address] Essential hypertension Social History Tobacco Use Types [...] Description 09/28/2025 9:15 AM EST Office Visit [facility] [address] [place] [phone] Kathy Hair MD [address] [place] [phone] documented as of this encounter Visit Diagnoses Diagnosis Essential hypertension Unspecified essential hypertension documented in this encounter Care Teams Early Morning Babysitter Relationship Specialty Start Date End Date Kathy Hair MD [address] [place] [phone] PCP - General Internal Medicine 09/15/24 Maikel RODRIGUEZ 04/11/25 documented as of this encounter
== END 2025-09-08 12:02 | disposition home or self-care (01) ==
LOC: HO.HGI 10:52
PROVIDERS: PCP Internal Medicine; Visit Provider Nurse Practitioner Family
DX: Z01.818 Encounter for other preprocedural examination (principal); Z12.11 Encounter for screening for malignant neoplasm of colon; K21.9 Gastro-esophageal reflux disease without esophagitis; R07.89 Other chest pain
CPT/HCPCS: 99203

== ENCOUNTER → 2025-09-08 10:51 | Outpatient (BNVA) | payer MEDICAID, SELFPAY | PROVIDERS: PCP Internal Medicine; Visit Provider Nurse Practitioner Family | DX: Z12.11 Encounter for screening for malignant neoplasm of colon (principal); K21.9 Gastro-esophageal reflux disease without esophagitis; R07.89 Other chest pain | CPT/HCPCS: 99212 ==